=== PATIENT | female | born 1945 | race Caucasian/White ===

== ENCOUNTER 2020-02-24 06:13 | Emergency (ER) | payer OTHER ==
[2011-12-09 08:20] VITALS: BP 112/66
--- OUTSIDE RECORDS SUMMARY | 2020-02-24 06:15 | XMS REPORT | Continuity of Care Document ---
:1945 Author Organization [facility] t Address [address] [place] [address] Care Team Providers Name Role Phone Cornelio BRIGGS Attending Clinician Theo BRIGGS Attending Clinician Problems This patient has no known problems. Allergies, Adverse Reactions, Alerts This patient has no known allergies or adverse reactions. Medications This patient has no known medications. Procedures This patient has no known procedures. Encounters Start End Encounter Admission Attending Care Care Encounter Source Date/Time Date/Time Type Type Clinicians Facility Department ID 2019-12-10 2019-12-10 Telephone JOES Grimes [id number] 00:00:00 00:00:00 Rasheed Burkett [id number] [place] [id number] Professio [phone] nal 044 Building 2019-09-17 2019-09-17 Telephone JOSE Venegas [id number] 00:00:00 00:00:00 Sloane Burkett [id number] [place] [id number] Professio [phone] nal 059 [facility] Results This patient has no known results.
--- OUTSIDE RECORDS SUMMARY | 2020-02-24 06:16 | XMS REPORT | Summary of Care ---
:1945 Author Organization [facility] Address [address] [place] [address] Care Team Providers Name Role Phone MD Cornelio Primary Care Provider Reason for Visit Reason Comments Talk To Nurse Encounter Details Date Type Department Care Team Description 09/17/2019 Telephone [facility] Cardiology- Kaylin Venegas MD Talk To Nurse [place] [address] [facility] 146 [facility], [address] [place] [address] [place] [address] [phone] Allergies Active Allergy Reactions Severity Noted Date Comments Brimonidine Other - See comments 07/16/2019 Papilla ry reaction, conjunctival irritation Rosuvastatin Calcium Anaphylaxis 01/24/2015 Neuromuscular Blockers, Unknown - See 07/13/2013 Giv es pt glaucoma, Steroidal comments all steroid typ e medications Penicillins Swelling 07/13/2013 Gyrypbs-Kgt-Nkh Rash 05/02/2015 Reductase Inhibitors Sulfa (Sulfonamide Unknown - See 07/13/2013 Had reac tion as a Antibiotics) comments child Ezetimibe Unknown - See 04/18/2018 comments documented as of this encounter (statuses as of 11/30/2019) Medications Medication Sig Dispensed Refills Start End Status Date Date aspirin 81 mg Take 81 mg by 0 Ac tive tabletIndications: mouth daily. Coronary atherosclerosis of unspecified type of vessel, [place] or graft, Other acute and subacute form of ischemic heart disease, Traumatic amputation of toe(s) (complete) (partial), without mention of complication, S/P appendectomy VITAMIN E, Take 100 Units by [address]ive DL,TOCOPHERYL ACET, mouth. (VITAMIN E, DL, ACETATE,) 400 unit Cap fluticasone 50 Use 1 [place] in 3 Bottle 3 05/04/20 Active mcg/actuation nasal each nostril 18 sprayIndications: daily. Seasonal allergic rhinitis, unspecified trigger oxymetazoline (AFRIN Use 1 [place] in 0 Active SINUS, OXYMETAZOLINE,) each nostril 2 0.05 % nasal spray (two) times daily. alirocumab (PRALUENT inject 75 mg 2 Syringe 11 12/16/19 Active PEN) 75 mg/mL under the skin 19 PnIjIndications: every 2 (two) hyperlipidemia weeks. Indications: hyperlipidemia capsicum oleoresin Apply to area(s) 60 g 1 04/24/20 Active 0.025 % 3 (three) times 19 creamIndications: daily. Apply 2-4g Trigeminal neuralgia topically to affected area TID diclofenac 75 mg EC Take 1 tablet by 60 tablet 1 07/25/19 Active tabletIndications: mouth 2 (two) 20 Pain of right hip times daily with joint meals. dorzolamide-timolol Place 1 Drop in 10 mL 5 08/22/19 Active 22.3-6.8 mg/mL both eyes 2 (two) 20 ophthalmic times daily. dropsIndications: Primary open angle glaucoma (POAG) of both eyes, severe stage latanoprost 0.005 % Place 1 Drop in 7.5 mL 5 08/22/19 Active ophthalmic drops both eyes at 20 bedtime. METOPROLOL TARTRATE 25 TAKE 1 TABLET BY 180 tablet 1 03/26/20 03/18/ Discontinued mg tabletIndications: MOUTH TWICE A DAY 2019 Essential hypertension omeprazole 20 mg Take 1 capsule by 90 capsule 1 04/30/20 04/2 4/ Discontinued capsuleIndications: mouth daily. 2019 Gastroesophageal reflux disease without esophagitis HYDROCHLOROTHIAZIDE TAKE 1 CAPSULE BY 90 capsule 1 05/15/20 0 5/04/ Discontinued 12.5 mg MOUTH EVERY DAY 2019 capsuleIndications: Essential hypertension Calcium-Cholecalcifero Take 1 tablet by 90 tablet 1 05/15/20 05/04/ Discontinued l, D3, (CALCIUM WITH mouth daily. 2019 VITAMIN D) 600 mg(1,500mg) -400 unit tabletIndications: Senile osteoporosis bacitracin [address] Place in right 3.5 g 1 03/02/20 03/16/ unit/gram ophthalmic eye 3 (three) 2019 ointmentIndications: times daily for Herpes zoster 14 days. 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 Gastroesophageal reflux disease without esophagitis Chronic pain of multiple joints 04/24/2019 Encounter for screening for malignant neoplasm of lung 04/24/2019 Senile osteoporosis 04/24/2019 Need for Tdap vaccination 04/24/2019 Dyslipidemia 11/24/2015 Essential hypertension 07/14/2015 Coronary artery disease 07/14/2015 Peripheral vascular disease 07/14/2015 Glaucoma of both eyes 07/14/2015 documented as of this encounter (statuses as of 11/30/2019) Immunizations Name Administration Dates Next Due Influenza High Dose 03/04/2019, 04/10/2018, 05/12/2016 Pneumococcal Polysaccharide, PPSV23 04/23/2019 (Deferred: Va ccine (PNEUMOVAX) Unavailable) Tdap 04/23/2019 documented as of this encounter Social History Tobacco Use Types Packs/Day Years Used Date Former Smoker Cigarettes Quit: 07/14/19 12 Smokeless Tobacco: Never Used Alcohol Use Drinks/Week oz/Week Comments Yes 1 Glasses of wine 1.0 occ 0 Standard drinks or equivalent Sex Assigned at Date Recorded Not on file Job Start Date Occupation Industry Not on file Not on file Not on file Travel History Travel Start Travel End No recent travel history available. documented as of this encounter Last Filed Vital Signs Not on filedocumented in this encounter Plan of Treatment Date Type Specialty Care Team Description 06/20/2020 Office Visit Cardiology Gilmer Mcpherson MD [address] [place] [phone] Health Maintenance Due Date Last Done Comments Breast Cancer Screening 1984 (MAMMOGRAM) Zoster Recombinant Vaccine 1994 (SHINGRIX) (1 of 2) LUNG CANCER SCREEN: 1999 Recommended for age 55-80 with 30 + pack year history PNEUMOCOCCAL VACCINES 65+ (2 2009 09/08/2016 of 2 - PPSV23) (Declined) Medicare Wellness Visit 04/26/2020 01/20/2018 Postpone d from 01/20/2019 (Refused) Depression Screening 07/17/2020 07/17/2019 COLONOSCOPY 09/08/2026 09/08/2016 (Declined) DTaP,Tdap,and Td Vaccines (2 04/23/2029 04/23/2019 - Td) Osteoporosis Screening 05/01/2029 05/01/2019 INFLUENZA VACCINE Completed 03/04/2019, 04/10/2018, 05/12/2016 documented as of this encounter Results Not on filedocumented in this encounter Insurance Payer Benefit Plan Subscriber ID Effective Phone Address Typ e / Group Dates AETNA - AETNA [id number] 2013-Prese [address] Medic are Adv MANAGED MEDICARE ADV nt [id number] [place] [address] documented as of this encounter
--- OUTSIDE RECORDS SUMMARY | 2020-02-24 06:16 | XMS REPORT | Summary of Care ---
:1945 Author Organization [facility] Address [address] [place] [address] Care Team Providers Name Role Phone MD Cornelio Primary Care Provider Reason for Visit Reason Comments Other Encounter Details Date Type Department Care Team Description 12/10/2019 Telephone [facility] Pediatric and Rasheed Romero MD Other Adult Primary Care- [address] [facility] [address] [place] [address] [address] [place] [address] [phone] Allergies Active Allergy Reactions Severity Noted Date Comments Brimonidine Other - See comments 07/16/2019 Papilla ry reaction, conjunctival irritation Rosuvastatin Calcium Anaphylaxis 01/24/2015 Neuromuscular Blockers, Unknown - See 07/13/2013 Giv es pt glaucoma, Steroidal comments all steroid typ e medications Penicillins Swelling 07/13/2013 Zaqbdnq-Lgy-Dfg Rash 05/02/2015 Reductase Inhibitors Sulfa (Sulfonamide Unknown - See 07/13/2013 Had reac tion as a Antibiotics) comments child Ezetimibe Unknown - See 04/18/2018 comments documented as of this encounter (statuses as of 12/16/2019) Medications Medication Sig Dispensed Refills Start End Date Status Date aspirin 81 mg Take 81 mg by 0 Ac tive tabletIndications: mouth daily. Coronary atherosclerosis of unspecified type of vessel, [place] or graft, Other acute and subacute form of ischemic heart disease, Traumatic amputation of toe(s) (complete) (partial), without mention of complication, S/P appendectomy VITAMIN E, DL,TOCOPHERYL Take 100 Units by 0 Active ACET, (VITAMIN E, DL, mouth. ACETATE,) 400 unit Cap fluticasone 50 Use 1 [place] in 3 Bottle 3 Active mcg/actuation nasal each nostril 8 sprayIndications: daily. Seasonal allergic rhinitis, unspecified trigger oxymetazoline (AFRIN Use 1 [place] in 0 Active SINUS, OXYMETAZOLINE,) each nostril 2 0.05 % nasal spray (two) times daily. alirocumab (PRALUENT inject 75 mg under 2 Syringe 11 Active PEN) 75 mg/mL the skin every 2 9 PnIjIndications: (two) weeks. hyperlipidemia Indications: hyperlipidemia capsicum oleoresin 0.025 Apply to area(s) 60 g 1 01 Active % creamIndications: 3 (three) times 9 Trigeminal neuralgia daily. Apply 2-4g topically to affected area TID diclofenac 75 mg EC Take 1 tablet by 60 tablet 1 Active tabletIndications: Pain mouth 2 (two) 0 of right hip joint times daily with meals. dorzolamide-timolol Place 1 Drop in 10 mL 5 Active 22.3-6.8 mg/mL both eyes 2 (two) 0 ophthalmic times daily. dropsIndications: Primary open angle glaucoma (POAG) of both eyes, severe stage latanoprost 0.005 % Place 1 Drop in 7.5 mL 5 Active ophthalmic drops both eyes at 0 bedtime. cyclobenzaprine 10 mg Take 1 tablet by 40 tablet 0 Active tabletIndications: Low mouth 3 (three) 0 back pain potentially times daily. associated with radiculopathy METOPROLOL TARTRATE 25 TAKE 1 TABLET BY 180 tablet 1 Active mg tabletIndications: MOUTH TWICE A DAY 0 Essential hypertension OMEPRAZOLE 20 mg TAKE 1 CAPSULE BY 90 capsule 1 Active capsuleIndications: MOUTH EVERY DAY 0 Gastroesophageal reflux disease without esophagitis HYDROCHLOROTHIAZIDE 12.5 TAKE 1 CAPSULE BY 90 capsule 1 Active mg capsuleIndications: MOUTH EVERY DAY 0 Essential hypertension CALCIUM-CHOLECALCIFEROL, TAKE 1 TABLET BY 90 tablet 1 11/05/19 2 Active D3, 600 mg(1,500mg) -400 MOUTH EVERY DAY 0 unit tabletIndications: Senile osteoporosis documented as of this encounter (statuses as of 12/16/2019) Active Problems Problem Noted Date Hyperlipidemia, unspecified [...] as of this encounter (statuses as of 12/16/2019) Immunizations Name Administration Dates Next Due Influenza [...] Cardiology Gilmer Mcpherson MD [address] [place] [phone] Health Maintenance Due Date Last Done [...] e / Group Dates AETNA - AETNA [id number] 2013-Prese [address] BOX Medic are Adv MANAGED MEDICARE ADV nt [id number] [place] [phone] documented as of this encounter
[2020-02-24 06:42] LABS: Absolute Lymphocytes (CBC) 1.1 K/uL (0.7-4.9); Basophils % 1.3 % (0-1.3); Hematocrit 44.1 % (36.0-45.0); Lymphocytes % 30.1 % (15.3-44.8); MPV 9.4 fL (7.6-11.3); RBC Red Blood Cell Count 5.22 M/uL (3.86-4.86)
[2020-02-24 06:48] LABS: Protime INR 1.03
--- NOTE | 2020-02-24 06:52 | ER ---
Nurse's Notes [facility] Name: Xiomy Mendez Age: 74 yrs Sex: Female : 1945 Arrival Date: 02/24/2020 Time: 06:18 Bed 7 Private MD: Diagnosis: Cerebral infarction Presentation: 02/23 06:18 Chief complaint: EMS states: they were toned out for report of pt with left-sided bb weakness on awakening this morning approx an hour ago. Pt's last known well time was when she went to bed last night at approx 2100. On awakening pt could not move her left arm or leg but symptoms were improving when EMS arrived. Coronavirus screen: At this time, the client does not indicate any symptoms associated with coronavirus-19. Ebola Screen: No symptoms or risks identified at this time. Initial Sepsis Screen: Does the patient meet any 2 criteria? No. Patient's initial sepsis screen is negative. Does the patient have a suspected source of infection? No. Patient's initial sepsis screen is negative. Risk Assessment: Do you want to hurt yourself or someone else? Patient reports no desire to harm self or others. Onset of symptoms was February 24, 2020. 06:18 Method Of Arrival: EMS: [facility] bb 06:18 Acuity: ALFONSO 1 bb 06:18 An acute neurological deficit is present. bb 06:53 Care prior to arrival: pt took aspirin 81 mg x 3 at home this morning. bb Triage Assessment: 06:38 The onset of the patients symptoms was more than six hours ago. bb 07:12 The onset of the patients symptoms was. General: Appears comfortable. General: Behavior rv is cooperative. 07:14 Neuro: Reports headache frontal area. rv Stroke Activation: Symptom onset > 6 hours Physician: Stroke Attending; Name: ; Notified At: 06:18; Arrived At: Physician: Chief Stroke Resident; Name: ; Notified At: 06:18; Arrived At: Physician: Stroke Resident; Name: ; Notified At: 06:18; Arrived At: Physician: ED Attending; Name: Hailey; Notified At: 06:18; Arrived At: 06:18 Physician: ED Resident; Name: ; Notified At: 06:18; Arrived At: Historical: - Allergies: 06:38 PENICILLINS; bb 06:38 Sulfa (Sulfonamide Antibiotics); bb 06:38 steroids; bb - Home Meds: 06:38 Metoprolol Tartrate Oral [Active]; Hydrochlorothiazide Oral [Active]; Vitamin D Oral bb [Active]; Aspirin Oral [Active]; - PMHx: 06:38 Myocardial infarction; Hypertension; bb - PSHx: 06:38 Heart stents; all toes amputated both feet; Appendectomy; bb - Immunization history:: Adult Immunizations unknown. - Social history:: Smoking status: unknown. Screenin:33 Abuse screen: Denies threats or abuse. Denies injuries from another. Nutritional rv screening: No deficits noted. Tuberculosis screening: No symptoms or risk factors identified. 06:40 The patient has not been NPO before screening. The patient is alert, able to follow bb commands. The patient does not exhibit slurred or garbled speech The patient is not exhibiting difficulty speaking. The patient does not exhibit difficulty understanding words. The patient is able to swallow own secretions with no drooling or need for suction. Patient tolerated one teaspoon of water. No drooling, immediate coughing, gurgling, or clearing of the throat was noted. The patient tolerated 90mL of water. No drooling, immediate coughing, gurgling, or clearing of the throat was noted. The patient passed the bedside swallow screening. Oral medications may be given as ordered. Contact Physician for further diet orders. 07:13 Fall Risk No fall in past 12 months (0 pts). Secondary diagnosis (15 points) impaired rv mobility, IV access (20 points). Ambulatory Aid- None/Bed Rest/Nurse Assist (0 pts). Gait- Impaired (20 pts.). Mental Status- Overestimates/Forgets Limitations (15 pts.). Total Lyon Fall Scale indicates High Risk Score (45 or more points). Fall prevention measures have been instituted. Side Rails Up X 2 Frequent Obs/Assessments Occuring As available patient and family educated on Fall Prevention Program and Strategies. Assessment: 06:40 Reassessment: Alexis Mendez (spouse) [phone]. Reassessment: radiology on phone bb to Steven Hart NP with results of CT scan. 06:45 VAN Scoring: Arm Drift: Flaccid/no antigravity Visual Disturbance: No visual rv disturbance noted. Aphasia: No aphasia noted. Neglect: Patient is noted to be ignoring one of side of their body. Provider notified of +VAN scoring. referred to Steven. 06:45 The patient has not been NPO before screening. The patient is alert, and able to follow rv commands. The patient does not exhibit slurred or garbled speech. The patient is not exhibiting difficulty speaking. The patient does not exhibit difficulty understanding words. Patient tolerated one teaspoon of water. No drooling, immediate coughing, gurgling, or clearing of the throat was noted. The patient tolerated 90mL of water. No drooling, immediate coughing, gurgling, or clearing of the throat was noted. The patient failed the bedside swallow screening. The patient will be kept NPO until cleared by Speech Therapy or Physician. Provider notified of bedside swallow screening results: Steven Hart NP. 07:02 General: Behavior is cooperative. Pain: Complains of pain in HEAD. Neuro: Level of rv Consciousness is awake, alert, obeys commands, Oriented to person, place, time, situation. 07:09 T-PA (Activase) Screening: Contraindications: Patient reports onset of signs and rb1 symptoms of stroke greater than 6 hours ago: Yes. 07:15 General: Appears in no apparent distress. Behavior is calm, cooperative. Pain: rb1 Complains of pain in head. Neuro: Level of Consciousness is awake, alert, obeys commands, Oriented to person, place, time, situation. Neuro: Reports weakness in left arm. Cardiovascular: Patient's skin is warm and dry. Respiratory: Airway is patent Respiratory effort is even, unlabored, Respiratory pattern is regular, symmetrical. GI: No signs and/or symptoms were reported involving the gastrointestinal system. : No signs and/or symptoms were reported regarding the genitourinary system. 08:25 Reassessment: Patient appears in no apparent distress at this time. No changes from rb1 previously documented assessment. 08:50 Reassessment: Called report to RONNIE Sawant at [facility]. Information from the SBAR was rb1 given. All questions asked and answered. 09:30 Reassessment: Patient appears in no apparent distress at this time. Patient and/or rb1 family updated on plan of care and expected duration. Pain level reassessed. Patient is alert, oriented x 3, equal unlabored respirations, skin warm/dry/pink. Vital Signs: 06:18 BP 198 / 97; Pulse 70; Resp 16 S; Temp 97.7(A); Pulse Ox 96% on R/A; Weight 72.57 kg bb (R); Height 5 ft. 2 in. (157.48 cm) (R); 07:00 Weight 77.11 kg; rr5 07:09 BP 191 / 93; Pulse 71; Resp 18; Pulse Ox 98% ; rb1 08:00 rb1 08:56 BP 215 / 93; Pulse 76; Resp 17; Pulse Ox 98% ; rb1 09:50 BP 197 / 96; Pulse 69; Resp 18; Pulse Ox 95% on R/A; Pain 7/10; rb1 07:00 Body Mass Index 31.09 (77.11 kg, 157.48 cm) rr5 08:[address] rb1 08:56 Pt. is using her arm to talk on the telephone. rb1 Fidencio Coma Score: 07:14 Eye Response: spontaneous(4). Verbal Response: oriented(5). Motor Response: obeys rv commands(6). Total: 15. 08:15 Eye Response: spontaneous(4). Verbal Response: oriented(5). Motor Response: obeys rb1 commands(6). Total: 15. 08:30 Eye Response: spontaneous(4). Verbal Response: oriented(5). Motor Response: obeys rb1 commands(6). Total: 15. 08:45 Eye Response: spontaneous(4). Verbal Response: oriented(5). Motor Response: obeys rb1 commands(6). Total: 15. 09:00 Eye Response: spontaneous(4). Verbal Response: oriented(5). Motor Response: obeys rb1 commands(6). Total: 15. 09:15 Eye Response: spontaneous(4). Verbal Response: oriented(5). Motor Response: obeys rb1 commands(6). Total: 15. 09:30 Eye Response: spontaneous(4). Verbal Response: oriented(5). Motor Response: obeys rb1 commands(6). Total: 15. 09:44 Eye Response: spontaneous(4). Verbal Response: oriented(5). Motor Response: obeys rb1 commands(6). Total: 15. NIH Stroke Scale Scores: 06:29 NIHSS Score: 6 pm1 06:33 NIHSS Score: 6 rv 07:06 NIHSS Score: 6 rv 07:22 NIHSS Score: 6 pm1 09:55 NIHSS Score: 4 rb1 ED Course: 06:18 Patient arrived in ED. bb 06:18 Steven Hart NP is PHCP. pm1 06:18 Burke Ramirez MD is Attending Physician. pm1 06:18 Arm band placed on Patient placed in an exam room, on a stretcher, on hospital monitor, bb on pulse oximetry. 06:29 Minor Watts, RN is Primary Nurse. rv 06:33 CT Stroke Brain w/o Contrast In Process Unspecified. EDMS 06:34 Stroke CXR 1 View In Process Unspecified. EDMS 06:34 Triage completed. bb 06:45 Inserted saline lock: 20 gauge in right forearm, using aseptic technique. Maintain EMS rv IV. Dressing intact. Good blood return noted. Site clean \T\ dry. Gauge \T\ site: G22 RIGHT FOREARM. 06:45 Initial lab(s) drawn, by mushroom laborer, sent to lab. rv 07:[address] 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 Bed in low position. Call rv light in reach. Side rails up X 1. monitoring and evaluation advisor on. Pulse ox on. NIBP on. 07:25 Steven Hart Np, gave report to neurologist at [facility]. Neurologist nd request CT Angio before transfer. 08:02 CT Head Angio In Process Unspecified. EDMS 08:[address] Angio report back, notified [facility]. Hailey gave report to nd hospitalistLinda and got acceptance for transfer. 08:37 Arsen Blake called with administrative approval. Patient will be going to room 2251. mt 08:50 BB called nurse to nurse report. mt 08:55 [facility] called for transfer. mt 09:38 [facility] arrived to transport patient to [facility]. mt 09:55 No provider procedures requiring assistance completed. rb1 09:55 Patient transferred, IV remains in place. rb1 10:13 Primary Nurse role handed off by Minor Watts, RONNIE rb1 10:13 Carmita Teresa, RONNIE is Primary Nurse. rb1 Administered Medications: 07:00 Drug: morphine 2 mg {Note: RASS 0.} Route: IVP; Site: left forearm; rv 07:44 Follow up: Response: No adverse reaction; Pain is decreased rb1 07:00 Drug: Zofran (Ondansetron) 4 mg Route: IVP; Site: left forearm; rv 07:44 Follow up: Response: No adverse reaction rb1 07:11 CANCELLED (Duplicate Order): Zofran (Ondansetron) 4 mg IVP once; over 2 minutes rv 07:11 CANCELLED (Duplicate Order): morphine 2 mg IVP once; RASS on ADMIN: Combtv4, Very rv Agttd3, Agttd2, Rstlss1, AlertClm0, Drwsy-1, Lt Sdtn-2, Mod Sdtn-3, Dp Sdtn-4, UnArsble-5 08:37 Drug: NS 0.9% 1000 ml Route: IV; Rate: 1000 ml; Site: right forearm; rb1 09:55 Follow up: IV Status: Infusion continued upon transfer rb1 08:37 Drug: PlaVIX 75 mg Route: PO; rb1 09:00 Follow up: Response: No adverse reaction rb1 08:37 Drug: Aspirin 81 mg Route: PO; rb1 09:00 Follow up: Response: No adverse reaction rb1 09:35 Drug: foLIC Acid 1 mg Route: IVPB; Site: right forearm; rb1 09:44 Follow up: IV Status: Completed infusion rb1 09:39 Drug: Tylenol 650 mg Route: PO; rb1 09:55 Follow up: Response: Medication administered at discharge. rb1 09:41 Not Given (provider changed order): Zocor 40 mg PO once rb1 Point of Care Testing: Blood Glucose: 07:13 Blood Glucose: 108 mg/dL; rv Ranges: Outcome: 06:52 ER care complete, transfer ordered by . pm1 09:55 Transferred by [facility] to [facility], Transfer form completed. rb1 09:55 Condition: stable 09:55 Instructed on the need for transfer. 09:55 Patient left the ED. rb1 NIH Stroke Scale - NIH Stroke Score Date: 02/24/2020 Time: 06:29 Total Score = 6 1a. Level of Consciousness (LOC) - 0(Alert) 1b. Level of Consciousness (LOC) (Year \T\ Age) - 0(Both) 1c. LOC Commands (Open \T\ Closes Eyes/Transition Manager) - 0(Both) 2. Best Gaze (Lateral Gaze Paresis) - 0(Normal) 3. Visual Field Loss - 0(No visual loss) 4. Facial Palsy - 0(Normal) 5a. Left Arm: Motor (10-second hold) - 4(No movement) 5b. Right Arm: Motor (10-second hold) - 0(No drift) 6a. Left Leg: Motor (5-second hold - always test supine) - 0(No drift) 6b. Right Leg: Motor (5-second hold - always test supine) - 0(No drift) 7. Limb Ataxia (finger/nose \T\ heel/irizarry - test with eyes open) - 0(Absent) 8. Sensory Loss (pinprick arms/legs/face) - 2(Severe to total loss) 9. Best Language: Aphasia (description/naming/reading) - 0(No aphasia) 10. Dysarthria (speech clarity - read or repeat words) - 0(Normal) 11. Extinction and Inattention (visual/tactile/auditory/spatial/personal) - 0(No abnormality) Initials: pm1 NIH Stroke Scale - NIH Stroke Score Date: 02/24/2020 Time: 06:33 Total Score = 6 1a. Level of Consciousness (LOC) - 0(Alert) 1b. Level of Consciousness (LOC) (Year \T\ Age) - 0(Both) 1c. LOC Commands (Open \T\ Closes Eyes/Transition Manager) - 0(Both) 2. Best Gaze (Lateral Gaze Paresis) - 0(Normal) 3. Visual Field Loss - 0(No visual loss) 4. Facial Palsy - 0(Normal) 5a. Left Arm: Motor (10-second hold) - 4(No movement) 5b. Right Arm: Motor (10-second hold) - 0(No drift) 6a. Left Leg: Motor (5-second hold - always test supine) - 0(No drift) 6b. Right Leg: Motor (5-second hold - always test supine) - 0(No drift) 7. Limb Ataxia (finger/nose \T\ heel/irizarry - test with eyes open) - 0(Absent) 8. Sensory Loss (pinprick arms/legs/face) - 2(Severe to total loss) 9. Best Language: Aphasia (description/naming/reading) - 0(No aphasia) 10. Dysarthria (speech clarity - read or repeat words) - 0(Normal) 11. Extinction and Inattention (visual/tactile/auditory/spatial/personal) - 0(No abnormality) Initials: NIH Stroke Scale - NIH Stroke Score Date: 02/24/2020 Time: 07:06 Total Score = 6 1a. Level of Consciousness (LOC) - 0(Alert) 1b. Level of Consciousness (LOC) (Year \T\ Age) - 0(Both) 1c. LOC Commands (Open \T\ Closes Eyes/Transition Manager) - 0(Both) 2. Best Gaze (Lateral Gaze Paresis) - 0(Normal) 3. Visual Field Loss - 0(No visual loss) 4. Facial Palsy - 0(Normal) 5a. Left Arm: Motor (10-second hold) - 4(No movement) 5b. Right Arm: Motor (10-second hold) - 0(No drift) 6a. Left Leg: Motor (5-second hold - always test supine) - 0(No drift) 6b. Right Leg: Motor (5-second hold - always test supine) - 0(No drift) 7. Limb Ataxia (finger/nose \T\ heel/irizarry - test with eyes open) - 0(Absent) 8. Sensory Loss (pinprick arms/legs/face) - 2(Severe to total loss) 9. Best Language: Aphasia (description/naming/reading) - 0(No aphasia) 10. Dysarthria (speech clarity - read or repeat words) - 0(Normal) 11. Extinction and Inattention (visual/tactile/auditory/spatial/personal) - 0(No abnormality) Initials: NIH Stroke Scale - NIH Stroke Score Date: 02/24/2020 Time: 07:22 Total Score = 6 1a. Level of Consciousness (LOC) - 0(Alert) 1b. Level of Consciousness (LOC) (Year \T\ Age) - 0(Both) 1c. LOC Commands (Open \T\ Closes Eyes/Transition Manager) - 0(Both) 2. Best Gaze (Lateral Gaze Paresis) - 0(Normal) 3. Visual Field Loss - 0(No visual loss) 4. Facial Palsy - 0(Normal) 5a. Left Arm: Motor (10-second hold) - 4(No movement) 5b. Right Arm: Motor (10-second hold) - 0(No drift) 6a. Left Leg: Motor (5-second hold - always test supine) - 0(No drift) 6b. Right Leg: Motor (5-second hold - always test supine) - 0(No drift) 7. Limb Ataxia (finger/nose \T\ heel/irizarry - test with eyes open) - 0(Absent) 8. Sensory Loss (pinprick arms/legs/face) - 2(Severe to total loss) 9. Best Language: Aphasia (description/naming/reading) - 0(No aphasia) 10. Dysarthria (speech clarity - read or repeat words) - 0(Normal) 11. Extinction and Inattention (visual/tactile/auditory/spatial/personal) - 0(No abnormality) Initials: pm1 NIH Stroke Scale - NIH Stroke Score Date: 02/24/2020 Time: 09:55 Total Score = 4 1a. Level of Consciousness (LOC) - 0(Alert) 1b. Level of Consciousness (LOC) (Year \T\ Age) - 0(Both) 1c. LOC Commands (Open \T\ Closes Eyes/Transition Manager) - 0(Both) 2. Best Gaze (Lateral Gaze Paresis) - 0(Normal) 3. Visual Field Loss - 0(No visual loss) 4. Facial Palsy - 0(Normal) 5a. Left Arm: Motor (10-second hold) - 2(Drift, some effort against gravity) 5b. Right Arm: Motor (10-second hold) - 0(No drift) 6a. Left Leg: Motor (5-second hold - always test supine) - 0(No drift) 6b. Right Leg: Motor (5-second hold - always test supine) - 0(No drift) 7. Limb Ataxia (finger/nose \T\ heel/irizarry - test with eyes open) - 1(Present in one limb) 8. Sensory Loss (pinprick arms/legs/face) - 1(Mild to moderate loss) 9. Best Language: Aphasia (description/naming/reading) - 0(No aphasia) 10. Dysarthria (speech clarity - read or repeat words) - 0(Normal) 11. Extinction and Inattention (visual/tactile/auditory/spatial/personal) - 0(No abnormality) Initials: rb1 Signatures: Dispatcher [employer] EDKelly Portillo RN RN bb Carmita Teresa, RN RN rb1 Steven Hart, ROTARY PLANER SET UP OPERATOR ROTARY PLANER SET UP OPERATOR pm1 [facility] Minor Watts RN RN rv Sergey Mason RN RN rr5 Corrections: (The following items were deleted from the chart) :46 08:50 BB called nurse to nurse report at 0850 [facility] :46 08:50 Safety checks: [facility] 10:11 10:10 Patient left the ED. [place] [id number] 10:15 10:14 Patient left the ED. rb1 rb1
--- NOTE | 2020-02-24 06:52 | EDPHYS ---
Physician Documentation [facility] Name: Xiomy Mendez Age: 74 yrs Sex: Female : 1945 Arrival Date: 02/24/2020 Time: 06:18 Bed 7 Private MD: ED Physician Burke Ramirez HPI: 02/23 06:29 This 74 yrs old Female presents to ER via EMS with complaints of S/S of pm1 Possible Stroke. 06:29 The patient presents to the emergency department with weakness of the left upper pm1 extremity, with the patient having weak corporate accounting manager, impaired coordination, left lower extremity, paresthesias of the left upper extremity. Onset: The symptoms/episode began/occurred Woke up 1 hour prior to arrival with inability to move left arm and left leg. Left arm numbness and pain. Patient was unable to walk and had to assist her to the restroom. Context: occurred at home, occurred while the patient was asleep, Patient's last normal time was 2100 last night. Patient went to sleep with a headache. Associated signs and symptoms: Pertinent positives: headache, nausea, Pertinent negatives: fever, No vision changes. Patient with baseline poor vision due to glaucoma. No chest pain, shortness of breath, palpitations. Severity of symptoms: in the emergency department the symptoms have improved Left leg weakness has improved. Patient's baseline: Neuro: alert and fully oriented, Motor: no deficits, Ambulation: walks without assistance. Current symptoms: headache, paralysis or paresis, of the left arm. The patient has not experienced similar symptoms in the past. 06:29 Patient given Asprin 81mg x 3 prior to arrival. pm1 Historical: - Allergies: 06:38 PENICILLINS; bb 06:38 Sulfa (Sulfonamide Antibiotics); bb 06:38 steroids; bb - Home Meds: 06:38 Metoprolol Tartrate Oral [Active]; Hydrochlorothiazide Oral [Active]; Vitamin D Oral bb [Active]; Aspirin Oral [Active]; - PMHx: 06:38 Myocardial infarction; Hypertension; bb - PSHx: 06:38 Heart stents; all toes amputated both feet; Appendectomy; bb - Immunization history:: Adult Immunizations unknown. - Social history:: Smoking status: unknown. ROS: 06:29 Constitutional: Negative for fever, chills, and weight loss, Eyes: Negative for injury, pm1 pain, redness, and discharge, ENT: Negative for injury, pain, and discharge, Neck: Negative for injury, pain, and swelling, Cardiovascular: Negative for chest pain, palpitations, and edema, Respiratory: Negative for shortness of breath, cough, wheezing, and pleuritic chest pain. 06:29 Back: Negative for injury and pain, : Negative for injury, bleeding, discharge, and swelling, MS/Extremity: Negative for injury and deformity, Skin: Negative for injury, rash, and discoloration. 06:29 Abdomen/GI: Positive for nausea, Negative for abdominal pain, vomiting, diarrhea, constipation. 06:29 Neuro: Positive for headache, numbness, weakness, of the left arm and left leg. Exam: 06:29 Constitutional: This is a well developed, well nourished patient who is awake, alert, pm1 and in no acute distress. Head/Face: Normocephalic, atraumatic. Eyes: Pupils equal round and reactive to light, extra-ocular motions intact. Lids and lashes normal. Conjunctiva and sclera are non-icteric and not injected. Cornea within normal limits. Periorbital areas with no swelling, redness, or edema. ENT: Nares patent. No nasal discharge, no septal abnormalities noted. Tympanic membranes are normal and external auditory canals are clear. Oropharynx with no redness, swelling, or masses, exudates, or evidence of obstruction, uvula midline. Mucous membranes moist. Neck: Trachea midline, no thyromegaly or masses palpated, and no cervical lymphadenopathy. Supple, full range of motion without nuchal rigidity, or vertebral point tenderness. No Meningismus. Chest/axilla: Normal chest wall appearance and motion. Nontender with no deformity. No lesions are appreciated. Cardiovascular: Regular rate and rhythm with a normal S1 and S2. No gallops, murmurs, or rubs. Normal PMI, no JVD. No pulse deficits. Respiratory: Lungs have equal breath sounds bilaterally, clear to auscultation and percussion. No rales, rhonchi or wheezes noted. No increased work of breathing, no retractions or nasal flaring. Abdomen/GI: Soft, non-tender, with normal bowel sounds. No distension or tympany. No guarding or rebound. No evidence of tenderness throughout. Back: No spinal tenderness. No costovertebral tenderness. Full range of motion. Skin: Warm, dry with normal turgor. Normal color with no rashes, no lesions, and no evidence of cellulitis. MS/ Extremity: Pulses equal, no cyanosis. 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 Vital Signs: 06:18 BP 198 / 97; Pulse 70; Resp 16 S; Temp 97.7(A); Pulse Ox 96% on R/A; Weight 72.57 kg bb (R); Height 5 ft. 2 in. (157.48 cm) (R); 07:00 Weight 77.11 kg; rr5 07:09 BP 191 / 93; Pulse 71; Resp 18; Pulse Ox 98% ; rb1 08:00 rb1 08:56 BP 215 / 93; Pulse 76; Resp 17; Pulse Ox 98% ; rb1 09:50 BP 197 / 96; Pulse 69; Resp 18; Pulse Ox 95% on R/A; Pain 7/10; rb1 07:00 Body Mass Index 31.09 (77.11 kg, 157.48 cm) rr5 08:[address] rb1 08:56 Pt. is using her arm to talk on the telephone. rb1 NIH Stroke Scale Scores: 06:29 NIHSS Score: 6 pm1 06:33 NIHSS Score: 6 rv 07:06 NIHSS Score: 6 rv 07:22 NIHSS Score: 6 pm1 09:55 NIHSS Score: 4 rb1 Crumrod Coma Score: 07:14 Eye Response: spontaneous(4). Verbal Response: oriented(5). Motor Response: obeys rv commands(6). Total: 15. 08:15 Eye Response: spontaneous(4). Verbal Response: oriented(5). Motor Response: obeys rb1 commands(6). Total: 15. 08:30 Eye Response: spontaneous(4). Verbal Response: oriented(5). Motor Response: obeys rb1 commands(6). Total: 15. 08:45 Eye Response: spontaneous(4). Verbal Response: oriented(5). Motor Response: obeys rb1 commands(6). Total: 15. 09:00 Eye Response: spontaneous(4). Verbal Response: oriented(5). Motor Response: obeys rb1 commands(6). Total: 15. 09:15 Eye Response: spontaneous(4). Verbal Response: oriented(5). Motor Response: obeys rb1 commands(6). Total: 15. 09:30 Eye Response: spontaneous(4). Verbal Response: oriented(5). Motor Response: obeys rb1 commands(6). Total: 15. 09:44 Eye Response: spontaneous(4). Verbal Response: oriented(5). Motor Response: obeys rb1 commands(6). Total: 15. MDM: 06:19 Patient medically screened. pm1 06:20 ED course: Patient is not a TPA candidate. Last known normal baseline 2100 last night. pm1 06:48 Data reviewed: vital signs. Data interpreted: Pulse oximetry: on room air is 96 %. pm1 Interpretation: normal. Counseling: I had a detailed discussion with the patient and/or guardian regarding: the historical points, exam findings, and any diagnostic results supporting the discharge/admit diagnosis, lab results, radiology results, the need to transfer to another facility, [facility] does not immediately have the required specialist. 07:16 ED course: Patient would like to go to [facility] for admission if possible. pm1 07:18 ED course: Uncertain neuro ICU bed availability per [facility] transfer center, therefore pm1 will initiate transfer to [facility] Discussed with patient and and they would like to be transferred to a facility that would be available to treat her soonest. 07:26 Physician consultation: Neurologyamila Gautam regarding regarding transfer, patient's pm1 condition, would like further tests performed, CTA prior to transfer and call back with results to see if patient is candidate for intervention. 08:25 Physician consultation: Neurologyamila Gautam regarding CTA results. pm1 08:30 Physician consultation: Joaquin Rodriguez MD Recommends Zocor 40mg PO, Aspirin 81mg PO, pm1 Plavix 75 mg PO, NS 1000 mL IV, and Folic acid 1 mg IV. 08:36 Physician consultation: Meg Mckeon regarding regarding transfer, patient's pm1 condition. 02/23 06:19 Order name: Hepatic Function; Complete Time: 07:14 pm1 02/23 06:19 Order name: Basic Metabolic Panel; Complete Time: 07:14 pm1 02/23 06:19 Order name: CBC with Diff; Complete Time: 07:19 pm1 02/23 06:19 Order name: Protime (+inr); Complete Time: 06:53 pm1 02/23 06:19 Order name: Ptt, Activated; Complete Time: 06:53 pm1 02/23 06:43 Order name: Glucose, Ancillary Testing; Complete Time: 06:53 EDMS 02/23 06:19 Order name: CT Stroke Brain w/o Contrast pm1 02/23 06:19 Order name: Stroke CXR 1 View; Complete Time: 07:15 pm1 02/23 07:18 Order name: CBC Smear Scan; Complete Time: 07:19 EDMS 02/23 07:26 Order name: CT Head Angio; Complete Time: 08:23 pm1 02/23 08:47 Order name: SARS-COV-2 RT PCR; Complete Time: 08:48 EDMS 02/23 06:19 Order name: Accucheck; Complete Time: 07:15 pm1 02/23 06:19 Order name: Cardiac monitoring; Complete Time: 07:15 pm1 02/23 06:19 Order name: EKG - Nurse/Tech; Complete Time: 07:15 pm1 02/23 06:19 Order name: IV Saline Lock; Complete Time: 07:15 pm1 02/23 06:19 Order name: Labs collected and sent; Complete Time: 07:15 pm1 02/23 06:19 Order name: NPO; Complete Time: 07:15 pm1 02/23 06:19 Order name: O2 Per Protocol; Complete Time: 07:15 pm1 02/23 06:19 Order name: O2 Sat Monitoring; Complete Time: 07:15 pm1 02/23 06:19 Order name: Stroke Swallow Screen; Complete Time: 07:15 pm1 Administered Medications: 07:00 Drug: morphine 2 mg {Note: RASS 0.} Route: IVP; Site: left forearm; rv 07:44 Follow up: Response: No adverse reaction; Pain is decreased rb1 07:00 Drug: Zofran (Ondansetron) 4 mg Route: IVP; Site: left forearm; rv 07:44 Follow up: Response: No adverse reaction rb1 07:11 CANCELLED (Duplicate Order): Zofran (Ondansetron) 4 mg IVP once; over 2 minutes rv 07:11 CANCELLED (Duplicate Order): morphine 2 mg IVP once; RASS on ADMIN: Combtv4, Very rv Agttd3, Agttd2, Rstlss1, AlertClm0, Drwsy-1, Lt Sdtn-2, Mod Sdtn-3, Dp Sdtn-4, UnArsble-5 08:37 Drug: NS 0.9% 1000 ml Route: IV; Rate: 1000 ml; Site: right forearm; rb1 09:55 Follow up: IV Status: Infusion continued upon transfer rb1 08:37 Drug: PlaVIX 75 mg Route: PO; rb1 09:00 Follow up: Response: No adverse reaction rb1 08:37 Drug: Aspirin 81 mg Route: PO; rb1 09:00 Follow up: Response: No adverse reaction rb1 09:35 Drug: foLIC Acid 1 mg Route: IVPB; Site: right forearm; rb1 09:44 Follow up: IV Status: Completed infusion rb1 09:39 Drug: Tylenol 650 mg Route: PO; rb1 09:55 Follow up: Response: Medication administered at discharge. rb1 09:41 Not Given (provider changed order): Zocor 40 mg PO once rb1 Point of Care Testing: Blood Glucose: 07:13 Blood Glucose: 108 mg/dL; rv Ranges: Critical Glucose Levels:Adult <50 mg/dl or >400 mg/dl <40 mg/dl or >180 mg/dl Disposition: 18:59 Co-signature as Attending Physician, Burke Ramirez MD. rn Disposition: 02/24/20 06:52 Transfer ordered to [facility]. Diagnosis is Cerebral infarction. - Reason for transfer: Higher level of care. - Accepting physician is [facility]. - Condition is Stable. - Problem is new. - Symptoms have improved. NIH Stroke Scale - NIH Stroke Score Date: 02/24/2020 Time: 06:29 Total Score = 6 1a. Level of Consciousness (LOC) - 0(Alert) 1b. Level of Consciousness (LOC) (Year \T\ Age) - 0(Both) 1c. LOC Commands (Open \T\ Closes Eyes/Car Loader) - 0(Both) 2. Best Gaze (Lateral Gaze Paresis) - 0(Normal) 3. Visual Field Loss - 0(No visual loss) 4. Facial Palsy - 0(Normal) 5a. Left Arm: Motor (10-second hold) - 4(No movement) 5b. Right Arm: Motor (10-second hold) - 0(No drift) 6a. Left Leg: Motor (5-second hold - always test supine) - 0(No drift) 6b. Right Leg: Motor (5-second hold - always test supine) - 0(No drift) 7. Limb Ataxia (finger/nose \T\ heel/irizarry - test with eyes open) - 0(Absent) 8. Sensory Loss (pinprick arms/legs/face) - 2(Severe to total loss) 9. Best Language: Aphasia (description/naming/reading) - 0(No aphasia) 10. Dysarthria (speech clarity - read or repeat words) - 0(Normal) 11. Extinction and Inattention (visual/tactile/auditory/spatial/personal) - 0(No abnormality) Initials: pm1 NIH Stroke Scale - NIH Stroke Score Date: 02/24/2020 Time: 06:33 Total Score = 6 1a. Level of Consciousness (LOC) - 0(Alert) 1b. Level of Consciousness (LOC) (Year \T\ Age) - 0(Both) 1c. LOC Commands (Open \T\ Closes Eyes/Car Loader) - 0(Both) 2. Best Gaze (Lateral Gaze Paresis) - 0(Normal) 3. Visual Field Loss - 0(No visual loss) 4. Facial Palsy - 0(Normal) 5a. Left Arm: Motor (10-second hold) - 4(No movement) 5b. Right Arm: Motor (10-second hold) - 0(No drift) 6a. Left Leg: Motor (5-second hold - always test supine) - 0(No drift) 6b. Right Leg: Motor (5-second hold - always test supine) - 0(No drift) 7. Limb Ataxia (finger/nose \T\ heel/irizarry - test with eyes open) - 0(Absent) 8. Sensory Loss (pinprick arms/legs/face) - 2(Severe to total loss) 9. Best Language: Aphasia (description/naming/reading) - 0(No aphasia) 10. Dysarthria (speech clarity - read or repeat words) - 0(Normal) 11. Extinction and Inattention (visual/tactile/auditory/spatial/personal) - 0(No abnormality) Initials: NIH Stroke Scale - NIH Stroke Score Date: 02/24/2020 Time: 07:06 Total Score = 6 1a. Level of Consciousness (LOC) - 0(Alert) 1b. Level of Consciousness (LOC) (Year \T\ Age) - 0(Both) 1c. LOC Commands (Open \T\ Closes Eyes/Car Loader) - 0(Both) 2. Best Gaze (Lateral Gaze Paresis) - 0(Normal) 3. Visual Field Loss - 0(No visual loss) 4. Facial Palsy - 0(Normal) 5a. Left Arm: Motor (10-second hold) - 4(No movement) 5b. Right Arm: Motor (10-second hold) - 0(No drift) 6a. Left Leg: Motor (5-second hold - always test supine) - 0(No drift) 6b. Right Leg: Motor (5-second hold - always test supine) - 0(No drift) 7. Limb Ataxia (finger/nose \T\ heel/irizarry - test with eyes open) - 0(Absent) 8. Sensory Loss (pinprick arms/legs/face) - 2(Severe to total loss) 9. Best Language: Aphasia (description/naming/reading) - 0(No aphasia) 10. Dysarthria (speech clarity - read or repeat words) - 0(Normal) 11. Extinction and Inattention (visual/tactile/auditory/spatial/personal) - 0(No abnormality) Initials: NIH Stroke Scale - NIH Stroke Score Date: 02/24/2020 Time: 07:22 Total Score = 6 1a. Level of Consciousness (LOC) - 0(Alert) 1b. Level of Consciousness (LOC) (Year \T\ Age) - 0(Both) 1c. LOC Commands (Open \T\ Closes Eyes/Car Loader) - 0(Both) 2. Best Gaze (Lateral Gaze Paresis) - 0(Normal) 3. Visual Field Loss - 0(No visual loss) 4. Facial Palsy - 0(Normal) 5a. Left Arm: Motor (10-second hold) - 4(No movement) 5b. Right Arm: Motor (10-second hold) - 0(No drift) 6a. Left Leg: Motor (5-second hold - always test supine) - 0(No drift) 6b. Right Leg: Motor (5-second hold - always test supine) - 0(No drift) 7. Limb Ataxia (finger/nose \T\ heel/irizarry - test with eyes open) - 0(Absent) 8. Sensory Loss (pinprick arms/legs/face) - 2(Severe to total loss) 9. Best Language: Aphasia (description/naming/reading) - 0(No aphasia) 10. Dysarthria (speech clarity - read or repeat words) - 0(Normal) 11. Extinction and Inattention (visual/tactile/auditory/spatial/personal) - 0(No abnormality) Initials: pm1 NIH Stroke Scale - NIH Stroke Score Date: 02/24/2020 Time: 09:55 Total Score = 4 1a. Level of Consciousness (LOC) - 0(Alert) 1b. Level of Consciousness (LOC) (Year \T\ Age) - 0(Both) 1c. LOC Commands (Open \T\ Closes Eyes/Car Loader) - 0(Both) 2. Best Gaze (Lateral Gaze Paresis) - 0(Normal) 3. Visual Field Loss - 0(No visual loss) 4. Facial Palsy - 0(Normal) 5a. Left Arm: Motor (10-second hold) - 2(Drift, some effort against gravity) 5b. Right Arm: Motor (10-second hold) - 0(No drift) 6a. Left Leg: Motor (5-second hold - always test supine) - 0(No drift) 6b. Right Leg: Motor (5-second hold - always test supine) - 0(No drift) 7. Limb Ataxia (finger/nose \T\ heel/irizarry - test with eyes open) - 1(Present in one limb) 8. Sensory Loss (pinprick arms/legs/face) - 1(Mild to moderate loss) 9. Best Language: Aphasia (description/naming/reading) - 0(No aphasia) 10. Dysarthria (speech clarity - read or repeat words) - 0(Normal) 11. Extinction and Inattention (visual/tactile/auditory/spatial/personal) - 0(No abnormality) Initials: rb1 Signatures: Dispatcher [employer] EDKelly Portillo, RN RN Burke Sales MD MD rn Barber, Rebecca, RN RN rb1 Steven Hart NP ENGINEER OF SYSTEM DEVELOPMENT pm1 Minor Watts, RONNIE RN rv Corrections: (The following items were deleted from the chart) 07:11 06:53 Zofran (Ondansetron) 4 mg IVP once; over 2 minutes ordered. pm1 rv 07:11 06:53 morphine 2 mg IVP once; RASS on ADMIN: Combtv4, Very Agttd3, Agttd2, rv Rstlss1, AlertClm0, Drwsy-1, Lt Sdtn-2, Mod Sdtn-3, Dp Sdtn-4, UnArsble-5 ordered. pm1 07:46 07:19 CORONAVIRUS+ ordered. EDMS EDMS 08:38 08:30 Physician consultation: Joaquin Rodriguez MD Recommends Zocor 40mg, Aspirin pm1 81mg, Plavix 75 mg , pm1 08:55 06:29 Constitutional: This is a well developed, well nourished patient who is pm1 awake, alert, and in no acute distress. Head/Face: Normocephalic, atraumatic. Eyes: Pupils equal round and reactive to light, extra-ocular motions intact. Lids and lashes normal. Conjunctiva and sclera are non-icteric and not injected. Cornea within normal limits. Periorbital areas with no swelling, redness, or edema. ENT: Nares patent. No nasal discharge, no septal abnormalities noted. Tympanic membranes are normal and external auditory canals are clear. Oropharynx with no redness, swelling, or masses, exudates, or evidence of obstruction, uvula midline. Mucous membranes moist. Neck: Trachea midline, no thyromegaly or masses palpated, and no cervical lymphadenopathy. Supple, full range of motion without nuchal rigidity, or vertebral point tenderness. No Meningismus. Chest/axilla: Normal chest wall appearance and motion. Nontender with no deformity. No lesions are appreciated. Cardiovascular: Regular rate and rhythm with a normal S1 and S2. No gallops, murmurs, or rubs. Normal PMI, no JVD. No pulse deficits. Respiratory: Lungs have equal breath sounds bilaterally, clear to auscultation and percussion. No rales, rhonchi or wheezes noted. No increased work of breathing, no retractions or nasal flaring. Abdomen/GI: Soft, non-tender, with normal bowel sounds. No distension or tympany. No guarding or rebound. No evidence of tenderness throughout. Back: No spinal tenderness. No costovertebral tenderness. Full range of motion. Skin: Warm, dry with normal turgor. Normal color with no rashes, no lesions, and no evidence of cellulitis. MS/ Extremity: Pulses equal, no cyanosis. Neurovascular intact. Full, normal range of motion. pm1 10:10 06:52 02/24/2020 06:52 Transfer ordered to [address] Diagnosis is Cerebral infarction. Reason for transfer: Higher level of care. Accepting physician is [facility]. Condition is Stable. Problem is new. Symptoms have improved. pm1 10:14 10:10 02/24/2020 06:52 Transfer ordered to [address] Diagnosis is Cerebral infarction. Reason for transfer: Higher level of care. Accepting physician is [facility]. Condition is Stable. Problem is new. Symptoms have improved. rb1
[2020-02-24 07:05] LABS: Albumin 3.5 g/dL (3.4-5.0); Bilirubin Direct 0.2 mg/dL (0-0.2); Bilirubin Total 0.6 mg/dL (0.2-1.0); Potassium 3.7 mmol/L (3.5-5.1); Protein, Total 7.2 g/dL (6.4-8.2)
[2020-02-24] MEDS ORDERED: MORPHINE 2 MG/ML SYR ONE (07:06)
[2020-02-24] MEDS ORDERED: ONDANSETRON 4 MG/2 ML VIAL ONE (07:07)
--- NOTE | 2020-02-24 07:13 | RAD REPORT ---
EXAM DESCRIPTION: Zahida Single View02/24/2020 6:34 am CLINICAL HISTORY: Left arm weakness COMPARISON: 2011 FINDINGS: The lungs appear clear of acute infiltrate. The heart is normal size IMPRESSION: No acute abnormalities displayed
[2020-02-24 07:18] LABS: Blood Morphology Comment NOT SEEN (NOT SEEN); Platelet Estimate ADEQ; Urine White Blood Cell Casts OK
--- NOTE | 2020-02-24 08:20 | RAD REPORT ---
EXAM DESCRIPTION: CTHead angio02/24/2020 8:02 am CLINICAL HISTORY: Left arm weakness COMPARISON: None TECHNIQUE: CT angiogram of the head was obtained. 3D MIPS reconstruction performed. All CT scans are performed using dose optimization technique as appropriate and may include automated exposure control or mA/KV adjustment according to patient size. FINDINGS: Calcified plaque within the distal right internal carotid artery at the level of C2-3 resu lts in a high-grade stenosis. Calcified plaque within the distal left internal carotid artery at the level of C3 results in a moderate to high-grade stenosis The basilar, anterior cerebral, middle cerebral and posterior cerebral arteries are normal caliber. An aneurysm is not seen. A significant stenosis is not noted. IMPRESSION: High-grade stenosis distal right internal carotid artery estimated to be greater than 90 % Moderate to high-grade stenosis distal left internal carotid artery
[2020-02-24] MEDS ORDERED: NA CHLORIDE 0.9% 1,000 ML ONE (08:49)
[2020-02-24] MEDS ORDERED: CLOPIDOGREL 75 MG TABLET ONE (08:49)
[2020-02-24] MEDS ORDERED: ASPIRIN EC 81 MG TAB PO ONE (08:49)
[2020-02-24] MEDS ORDERED: ATORVASTATIN 20 MG TAB PO ONE (09:00)
[2020-02-24] MEDS ORDERED: FOLIC ACID 1 MG in NA CHLORIDE 0.9% 50 ML IV ONE (09:00)
[2020-02-24] MEDS ORDERED: ACETAMINOPHEN 325 MG TABLET ONE (09:44)
--- NOTE | 2020-02-24 14:29 | RAD REPORT ---
EXAM DESCRIPTION: CT - Ct Stroke Brain Wo Cont - 02/24/2020 7:17 am End of Addendum EXAM DESCRIPTION: CT of the head without contrast CLINICAL HISTORY: Headache;Weakness COMPARISON: None available TECHNIQUE: Axial CT of the head obtained from the skull apex to the skull base without contrast. FINDINGS: No acute intracranial hemorrhage identified. No mass, mass effect, shift of the midline, a bnormal extra-axial fluid collection or CT evidence of acute ischemic change identified. The ventricu lar system and sulcal spaces are mildly enlarged compatible with mild cerebral atrophy. Scattered a reas of hypodensity throughout the supratentorial white matter are nonspecific and may be related to chronic small vessel ischemic change. The visualized paranasal sinuses and the mastoids are clear. No skull fracture identified. Visuali zed orbits and globes are unremarkable. Atherosclerotic calcification of the intracranial internal ca rotid arteries. IMPRESSION: 1. No acute intracranial abnormality by CT criteria. This exam was performed according to our departmental dose-optimization program, which includes autom ated exposure control, adjustment of the mA and/or kV according to patient size and/or use of iterati ve reconstruction technique. Electronically signed by: Atrhur Jaime 02/24/2020 6:39 AM CDT Due to temporary technical issues with the PACS/Fluency reporting system, reports are being signed by the in house radiologist without review as a courtesy to ensure prompt reporting. The interpreting r adiologist is fully responsible for the content of the report.
--- NOTE | 2020-02-26 10:48 | EKG ---
Test Date: 2020-02-24 Test Time: 06:34:51 Appointment Scheduler: TLT MEASUREMENT RESULTS: Intervals: Rate: 69 WA: 178 QRSD: 70 QT: 416 QTc: 445 [place]: P: 28 WA: 178 QRS: 11 T: 46 INTERPRETIVE STATEMENTS: Normal sinus rhythm Low voltage QRS Nonspecific ST abnormality Abnormal ECG Compared to ECG 12/08/2011 07:31:41 ST (T wave) deviation now present T-wave abnormality no longer present Prolonged QT interval no longer present Electronically Signed On 02-26-20 10:44:05 CDT by Farrukh Lozada
== END 2020-02-24 10:14 | disposition short-term general hospital (02) ==
LOC: ER 06:13
DX: I63.9 Cerebral infarction, unspecified (principal); Z20.828 Contact with and (suspected) exposure to other viral communicable diseases; I10 Essential (primary) hypertension; R29.706 NIHSS score 6; Z95.818 Presence of other cardiac implants and grafts; Z88.0 Allergy status to penicillin; Z88.2 Allergy status to sulfonamides; Z88.8 Allergy status to other drugs, medicaments and biological substances
CPT/HCPCS: 93005; 85025; 80048; 36415; 85610; 82947; 80076; 85730; 70496; 70450; 71045; U0003; Q9967; J2270; J7030; J2405; 99291

== ENCOUNTER 2020-02-29 13:53 | Inpatient (IN) | payer OTHER ==
--- NOTE | 2020-03-03 17:14 | R.PREADM ---
PRE-ADMISSION SCREENING FORM SCREENING DATE AND TIME 03/03/2020 08:53 (CDT) ANTICIPATED REHAB ADMISSION DATE 03/05/[address] [facility] REFERRAL DATE AND TIME 03/03/2020 08:53 (CDT) REFERRAL ROOM# 8251 ACUTE ADMIT DATE 02/24/2020 Previous Rehabilitation(s): No. 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 Veto Truong M.D. MR# [id number] NAME JOSE YANG ADDRESS [address] [place] [address] PHONE [facility] [id number] DATE OF 1945 AGE 74 SSN# [id number] GENDER female MARITAL STATUS RACE unknown race ADMIT FROM 02 - [facility] PRE-HOSPITAL LIVING SETTING 01 - Home (private home/apt. board/care, assisted living, skilled nursing, transitional living) HOME TYPE AND DETAILS Type of home: single family house # of levels in the residence: 1 # of steps within the residence: 0 # of steps to enter the residence: 0 PRE-HOSPITAL LIVING WITH Family/Relatives FAMILY SUPPORT Yes PRIMARY FAMILY CONTACT NAME VICKY YANG PRIMARY FAMILY CONTACT PHONE PRIMARY FAMILY CONTACT RELATIONSHIP Spouse PHONE PRIMARY FAMILY CONTACT ON ADM.? no IS PRIMARY FAMILY CONTACT AUTH. REP.? no 1ST EMERGENCY CONTACT VICKY YANG 1ST CONTACT PHONE 1ST CONTACT RELATIONSHIP Spouse PHONE 1ST CONTACT ON ADM. no IS 1ST CONTACT AUTH. REP.? no PHONE 2ND CONTACT ON ADM.? no PATIENT EMPLOYMENT STATUS Retired (for age) PATIENT EMPLOYER No Employer PAYOR INFORMATION: 1ST PAYOR NAME [employer] 1ST PAYOR PHONE [phone] 1ST PAYOR POLICY ID [id number] INJURY/ILLNESS DUE TO ACCIDENT? No ANOTHER REPUBLICAN RESPONSIBLE? No PRIMARY REHAB/ACUTE DIAGNOSIS: Right CVA ONSET DATE 02/24/2020 REHAB IMPAIRMENT CATEGORY (LANI): 01 Stroke (STR) MEETS 60% rule AFFECTED EXTREMITIES: LLE, and LUE PRIMARY DIAGNOSIS-RELATED SURGERIES: No surgeries related to the primary diagnosis were performed. SUMMARY OF ACUTE HOSPITALIZATION: Pt. is a 74 yo Right-handed female of unknown race. On 02/24/[address] [facility] with sudden onset of left-side weakness. On 02/24/2020 she was admitted to [facility] with diagnosis Right CVA. Her impairment category is Stroke 01 - Left Body (Right Brain) (01.1). Pre-morbidly, Pt. was independent/mod-I in Locomotion, Safety Awareness, Self-Care, Communication, an d Transfers Control; and she had good Balance, Endurance, and Sphincter Control. Currently, she has deficits of Locomotion, Balance, Social Cognition, Transfers Control, Sphincter Co ntrol, Self-Care, and Communication. Pt. is now referred to [facility] for acute in-patient rehabilitation in order to maximize patient's functional independence in activities of daily living, strength, ROM, and mobi lity. Patient has realistic goal of being discharged at assistance level 6-Andrew to reside at Home with Fam thomas/Relatives. PAST MEDICAL HISTORY CORONARY ARTERY DISEASE GLAUCOMA HYPERTENSION SD ( MYOCARDIAL INFARCTION ) ( [facility]) PAD ( PERIPHERAL ARTERY DISEASE) ([facility]) PAST SURGICAL HISTORY: AMPUTATION ( B/I TOES) APPENDECTOMY MEDICATION ALLERGIES: No Known Drug Allergies (NKDA) ENVIRONMENTAL ALLERGIES: - Substance Allergies None Known - Other Allergies PENICILLIN SULFA ( ANTIBIOTICS) CORTICOSTEROIDS ( GLUCOCORTICOIDS) CODE STATUS: Full code WEIGHT/HEIGHT/BMI: WEIGHT 159 lbs HEIGHT 5' 2" BMI 29.1 DIET: - Diet Type Regular - Diet - Solid Texture Regular - Diet - Liquid Texture Regular - Tube Feed N/A REVIEW OF SYSTEMS: - Gen Alert and awake Lying in bed No apparent distress Oriented to: person, time, and place - Vital Signs Temperature: 96.7 F SBP/DBP: 145/68 Pulse: 65 Resp: 18 Vital signs stable, afebrile - CVS RRR VITAL SIGNS Temperature: 96.7 F SBP/DBP: 145/68 Pulse: 65 Resp: 18 Vital signs stable, afebrile MEDICATIONS/TREATMENT: Other- See attached MAR (Medication Administration Record). CURRENT SPHINCTER CONTROL: Pre-hospital bladder status: unspecified # of bladder accidents in the last 7 days prior to screenin Pre-hospital bowel status: unspecified # of bowel accidents in the last 7 days prior to screenin Last Bowel Movement Date: 03/03/2020 CURRENT LOCOMOTION STATUS: distance walked 0 feet DETAILED CURRENT FUNCTIONAL STATUS: - Bladder accident frequency: Ind - No accidents in the past 7 days - Bowel accident frequency: Ind - No accidents in the past 7 days - Walking score based on distance walked: 0(N/A) - Wheelchair score based on distance traveled: 0(N/A) QI SCORES: - Self-Care A. Eating 05-Setup or clean-up assistance B. Oral hygiene 03-Partial/moderate assistance C. Toileting hygiene 88-Not attempted due to medical condition or safety concerns E. Shower/bathe self 02-Substantial/maximal assistance F. Upper body dressing 02-Substantial/maximal assistance G. Lower body dressing 02-Substantial/maximal assistance H. Putting on/taking off footwear 02-Substantial/maximal assistance - Mobility A. Roll left and right 02-Substantial/maximal assistance B. Sit to lying 03-Partial/moderate assistance C. Lying to sitting on side of bed 03-Partial/moderate assistance D. Sit to stand 02-Substantial/maximal assistance E. Chair/[id number] transfer 02-Substantial/maximal assistance F. Toilet transfer 88-Not attempted due to medical condition or safety concerns G. Car transfer 88-Not attempted due to medical condition or safety concerns I. Walk 10 feet 88-Not attempted due to medical condition or safety concerns J. Walk 50 feet with two turns 88-Not attempted due to medical condition or safety concerns K. Walk 150 feet 88-Not attempted due to medical condition or safety concerns L. Walking 10 feet on uneven surfaces 88-Not attempted due to medical condition or safety concerns M. 1 step (curb) 88-Not attempted due to medical condition or safety concerns N. 4 steps 88-Not attempted due to medical condition or safety concerns O. 12 steps 88-Not attempted due to medical condition or safety concerns P. Picking up object 88-Not attempted due to medical condition or safety concerns R. Wheel 50 feet with two turns 88-Not attempted due to medical condition or safety concerns S. Wheel 150 feet 88-Not attempted due to medical condition or safety concerns - Bladder and Bowel Bladder continence Bowel continence - Endurance Fair - Balance Poor - Safety Awareness Fair CURRENT FUNC. DEFICITS: Endurance, Balance, Mobility, Safety Awareness, and Self-Care CURRENT / PREVIOUS ASSISTIVE DEVICES: 3-in-1 [facility] Bed Raised Toilet Rolling Walker Wheelchair HISTORY OF FALLS. HAS THE PATIENT HAD TWO OR MORE FALLS IN THE PAST YEAR OR ANY FALL WITH INJURY IN T HE PAST YEAR?: No PRIOR SURGERY. DID THE PATIENT HAVE MAJOR SURGERY DURING THE 100 DAYS PRIOR TO ADMISSION?: No THERAPY NOTES FROM ACUTE CARE: Attached. SPECIAL NEEDS: - Safety Concerns Skin breakdown precautions needed due to skin breakdown risk PATIENT NEEDS ACTIVE AND ONGOING THERAPEUTIC INTERVENTION OF MULTIPLE THERAPY DISCIPLINES, INCLUDING: - Occupational Therapy Cognitive Retraining. Visual Perceptual Training. - Dietary and Nutrition Adequate Nutrition. Nutritional Education. Nutritional Supplements. - Speech Therapy Cognitive Training. Expressive Language Skills. Memory Strategies. Receptive Language Skills. Speech Intelligibility Training. PATIENT NEEDS CLOSE MEDICAL SUPERVISION BY A REHABILITATION PHYSICIAN FOR: Coordination of Treatment Team PATIENT REQUIRES 24X7 REHAB NURSING FOR MEDICAL AND FUNCTIONAL MGT. OF THE FOLLOWING DEFICITS: Disease Management Medication Management Patient/Family Education Providing Safe Environment PATIENT REQUIRES INTENSIVE, COORDINATED INTERDISCIPLINARY APPROACH TO REHAB: Arranging Home Equipment/Services Discharge Planning Family Intervention/Training Senior International Tax Manager/Case Management PATIENT REHAB POTENTIAL: AnshuNegra TREY is able and expected to receive 3 hours of individualized therapy daily on at least 5 o f every 7 days Wilbert YANG's prognosis for significant practical improvement within a reasonable period of time ap pears Good Expected level of measurable improvement will be of a practical value to Wilbert YANG's functional c apacity or adaptations to impairments Has a viable Discharge Plan Medically appropriate; condition is sufficiently stable to participate in intensive rehab program DISCHARGE PLAN: - Estimated Length of Stay (days) 17. - Consensus on plan Discharge plan has been discussed with primary caregiver. Patient/Family is in agreement with the alivia n. Primary caregiver is in agreement with the plan. - Patient/Family Goals Return home independently. - Planned Living Setting Upon Discharge Home, to live with Family/Relatives. Transitional Living. RECOMMENDED CARE LEVEL: IRF RECOMMENDATION DETAILS: Recommended Admission to Comprehensive Rehabilitation Program to Increase Functional [place] SCREENER'S COMPLETENESS CONFIRMATION: - Screening Confirmation The patient data collection on this preadmission screening form is finished PHYSICIANS REVIEW AND ADMISSION DETERMINATION Admit - Based on my review of the Pre-Admission Screening results, in my medical judgment and experie nce, I concur with the findings and recommend admission to [facility], as this patient requires an IRF level of care. SIGNATURE PANEL: Chemical Engineering Technician - [electronically] signed by Jose Swan on 03/03/2020 at 12:24 (CDT) Clinical Liaison - [electronically] signed by Karina Santoro RN on 03/03/2020 at 15:17 (CDT) Physician Reviewer - [electronically] signed by Dr. Veto Truong M.D. on 03/03/2020 at 17:13 (CDT )
--- OUTSIDE RECORDS SUMMARY | 2020-03-03 19:08 | XMS REPORT | Clinical Summary ---
:1945 Author Organization [facility] Address [address] [place] [address] Care Team Providers Name Role Phone Unavailable Primary Care Provider Unavailable Allergies Active Allergy Reactions Severity Noted Date Comments Corticosteroids Other (See Comments) 02/24/2020 "it caused me to (Glucocorticoids) have glauc jude" Penicillins Rash High 02/24/2020 Sulfa (Sulfonamide Rash High 02/24/2020 Antibiotics) Medications Medication Sig Dispensed Refills Start Date End Date Status metoprolol tartrate Take 25 mg by 0 Active (LOPRESSOR) 25 MG mouth 2 (two) tabletIndications: high times daily. blood pressure hydroCHLOROthiazide Take 25 mg by 0 Active (HYDRODIURIL) 25 MG tablet mouth daily. cholecalciferol (VITAMIN Take 1,000 0 Active D3) 10 mcg (400 unit) Tab Units by tabletIndications: mouth daily. prevention of vitamin D deficiency aspirin 81 MG EC Take 81 mg by 0 Active tabletIndications: mouth daily. myocardial reinfarction prevention apixaban (ELIQUIS) 5 mg Take 1 tablet 60 tablet 0 03/03/2020 Active Tab tablet (5 mg total) by mouth 2 (two) times daily. atorvastatin (LIPITOR) 80 Take 1 tablet 30 tablet 0 03/03/2020 03/03/2021 Active MG tablet (80 mg total) by mouth nightly. latanoprost (XALATAN) Place 1 drop 2.5 mL 0 03/03/2020 08/3 07/2020 Active 0.005 % ophthalmic into both solution eyes nightly. losartan (COZAAR) 50 MG Take 1 tablet 30 tablet 0 03/03/2020 0 03/03/2021 Active tablet (50 mg total) by mouth daily. polyethylene glycol Take 17 g by 14 each 0 03/03/20202019 Active (GLYCOLAX) 17 gram packet mouth 2 (two) times daily for 3 days. Active Problems Problem Noted Date CAD (coronary artery disease) 02/27/2020 History of KS (myocardial infarction) 02/27/2020 History of coronary artery stent placement 02/27/2020 Essential hypertension 02/27/2020 Thoracic aortic atherosclerosis 02/27/2020 Overview: AVIS 02/26/20: with severe atherosclerosis of ascending and descending thoracic aorta Grade 3 plaque (atheroma < 5mm) in the a scending aorta and aortic arch. Grade 4 mountainous plaque (atheroma > 5 mm) diffusely throughout thedescending thoracic aorta . CVA (cerebral vascular accident) 02/27/2020 Overview: MRI 02/25/20: Right parieto-occipital str anika Left hemiparesis 02/27/2020 Overview: 2/2 right sided stroke Prediabetes Encounters Date Type Specialty Care Team Description 02/25/2020 Anesthesia Event Michelle Schilling MD 02/25/2020 Surgery Virtual, PROCEDURE DONE OUTSIDE Surgeon OR 02/24/2020 - Hospital Encounter General Internal [place], Cereb rovascular accident (CVA), unspecified mechanism (HCC); 03/03/2020 Medicine MD Bradley Weakness of hand; Jennifer, Umar, Essential hype rtension; Mixed hyperlipidemia; Basilio Curtis Cryptogenic stroke (HCC); MD [place] Coronary artery disease involving [place] coronary artery of [place] heart without angina pectoris; History of day nary artery stent placement; Thoracic aortic atherosclerosis (HCC) 02/24/2020 Travel after 03/03/2019 Social History Tobacco Use Types Packs/Day Years Used Date Former Smoker Smokeless Tobacco: Never Used Alcohol Use Drinks/Week oz/Week Comments No Alcohol Habits Answer Date Recorded How often do you have a drink containing alcohol? Never 02/24/2020 How many drinks containing alcohol do you have on a typical Not asked day when you are drinking? How often do you have six or more drinks on one occasion? No t asked Sex Assigned at Date Recorded Not on file Job Start Date Occupation Industry Not on file Not on file Not on file Travel History Travel Start Travel End No recent travel history available. Last Filed Vital Signs Vital Sign Reading Time Taken Blood Pressure 116/56 03/03/2020 12:02 PM CDT Pulse 62 03/03/2020 12:02 PM CDT Temperature 36.2 C (97.1 F) 03/03/2020 8:20 AM CDT Respiratory Rate 16 03/03/2020 3:17 PM CDT Oxygen Saturation 95% 03/03/2020 12:02 PM CDT Inhaled Oxygen Concentration 21% 03/02/2020 7:28 PM CDT Weight 72.5 kg (159 lb 13.3 oz) 02/24/2020 12:1 0 PM CDT Height 157.5 cm (5' 2") 02/24/2020 12:10 PM CDT Body Mass Index 29.23 02/24/2020 12:10 PM CDT Plan of Treatment Not on file Procedures Procedure Name Priority Date/Time Associated Comments Diagnosis CBC W/PLT COUNT & AUTO Routine 03/03/2020 4:41 R esults for this DIFFERENTIAL AM CDT procedure are i n the results section. BASIC METABOLIC PANEL Routine 03/03/2020 4:41 Re sults for this (7) AM CDT procedure are i n the results section. CBC W/PLT COUNT & AUTO Routine 03/03/2020 4:41 R esults for this DIFFERENTIAL AM CDT procedure are i n the results section. MAGNESIUM Routine 03/03/2020 4:41 Results for this AM CDT procedure are i n the results section. BASIC METABOLIC PANEL Routine 03/02/2020 11:08 Re sults for this (7) AM CDT procedure are i n the results section. CBC W/PLT COUNT & AUTO Routine 02/29/2020 5:48 R esults for this DIFFERENTIAL AM CDT procedure are i n the results section. CBC W/PLT COUNT & AUTO Routine 02/29/2020 5:48 R esults for this DIFFERENTIAL AM CDT procedure are i n the results section. BASIC METABOLIC PANEL Routine 02/29/2020 5:48 Re sults for this (7) AM CDT procedure are i n the results section. SODIUM, RANDOM URINE Routine 02/28/2020 11:12 Res ults for this AM CDT procedure are i n the results section. OSMOLALITY, URINE Routine 02/28/2020 11:12 Result s for this AM CDT procedure are i n the results section. OSMOLALITY, SERUM Routine 02/28/2020 10:10 Result s for this AM CDT procedure are i n the results section. CBC W/PLT COUNT & AUTO Routine 02/28/2020 4:54 R esults for this DIFFERENTIAL AM CDT procedure are i n the results section. CBC W/PLT COUNT & AUTO Routine 02/28/2020 4:54 R esults for this DIFFERENTIAL AM CDT procedure are i n the results section. BASIC METABOLIC PANEL Routine 02/28/2020 4:54 Re sults for this (7) AM CDT procedure are i n the results section. POCT-GLUCOSE METER Routine 02/27/2020 10:18 Resul ts for this AM CDT procedure are i n the results section. CT/CTA CAROTID Routine 02/27/2020 9:35 Results f or this AM CDT procedure are i n the results section. CBC W/PLT COUNT & AUTO Routine 02/27/2020 8:46 R esults for this DIFFERENTIAL AM CDT procedure are i n the results section. CBC W/PLT COUNT & AUTO Routine 02/27/2020 8:46 R esults for this DIFFERENTIAL AM CDT procedure are i n the results section. BASIC METABOLIC PANEL Routine 02/27/2020 8:46 Re sults for this (7) AM CDT procedure are i n the results section. CONT WAVE PULSED Routine 02/26/2020 11:20 DOPPLER AM CDT COLOR-FLOW MAPPING Routine 02/26/2020 11:20 AM CDT TRANSESOPHAGEAL ECHO Routine 02/26/2020 11:09 Res ults for this AM CDT procedure are i n the results section. CONT WAVE PULSED Routine 02/26/2020 8:44 DOPPLER AM CDT COLOR-FLOW MAPPING Routine 02/26/2020 8:44 AM CDT TRANSFUSION SERVICE 02/25/2020 6:00 REPORT - SCAN PM CDT NV CEREBRAL 4 VESSEL Routine 02/25/2020 3:41 Res ults for this ANGIOGRAM PM CDT procedure are i n the results section. MR BRAIN WITHOUT IV STAT 02/25/2020 1:47 Resu lts for this CONTRAST PM CDT procedure are i n the results section. XR CHEST 1 VIEW STAT 02/25/2020 11:48 Results for this PORTABLE/BEDSIDE AM CDT procedure a re in the results section. ECG 12-LEAD STAT 02/25/2020 8:28 Results for this AM CDT procedure are i n the results section. CBC W/PLT COUNT & AUTO Routine 02/25/2020 4:30 R esults for this DIFFERENTIAL AM CDT procedure are i n the results section. TROPONIN I STAT Add-on 02/25/2020 4:30 Results for this AM CDT procedure are i n the results section. LIPID PANEL Routine 02/25/2020 4:30 Results for this AM CDT procedure are i n the results section. COMPREHENSIVE METABOLIC Routine 02/25/2020 4:30 Results for this PANEL AM CDT procedure are i n the results section. CBC W/PLT COUNT & AUTO Routine 02/25/2020 4:30 R esults for this DIFFERENTIAL AM CDT procedure are i n the results section. ABORH, MANUAL STAT 02/24/2020 5:20 Results fo r this PM CDT procedure are i n the results section. TYPE AND SCREEN, Routine 02/24/2020 3:45 Results for this AUTOMATED PM CDT procedure are i n the results section. SARS-COV2/RT-PCR (HS Routine 02/24/2020 3:44 R esults for this & REF LABS) PM CDT procedure are i n the results section. 2D ECHO W/ DOPPLER Routine 02/24/2020 1:57 Resul ts for this (CW/PW/COLOR) PM CDT procedure are in the results section. PT/APTT Routine 02/24/2020 1:46 Results for this PM CDT procedure are i n the results section. VITAMIN B12 AND FOLATE Routine 02/24/2020 1:45 R esults for this PM CDT procedure are i n the results section. LIPID PANEL Routine 02/24/2020 1:45 Results for this PM CDT procedure are i n the results section. TSH/FREE T4 IF Routine 02/24/2020 1:45 Results f or this INDICATED PM CDT procedure are i n the results section. COMPREHENSIVE METABOLIC Routine 02/24/2020 1:45 Results for this PANEL PM CDT procedure are i n the results section. TROPONIN I Routine 02/24/2020 1:45 Results for this PM CDT procedure are i n the results section. CBC W/PLT COUNT & AUTO Routine 02/24/2020 1:44 R esults for this DIFFERENTIAL PM CDT procedure are i n the results section. HEMOGLOBIN A1C Routine 02/24/2020 1:44 Results f or this PM CDT procedure are i n the results section. CBC W/PLT COUNT & AUTO Routine 02/24/2020 1:44 R esults for this DIFFERENTIAL PM CDT procedure are i n the results section. ECG 12-LEAD Routine 02/24/2020 1:25 Results for this PM CDT procedure are i n the results section. after 03/03/2019 Results CBC with platelet count + automated diff (03/03/2020 4:41 AM CDT)Only the most recent of6 resultswithin the time period is included. WBC 6.9 3.5 - 10.5 K/L [facility] RBC 5.45 (H) 3.93 - 5.22 M/L [facility] Hemoglobin 14.8 11.2 - 15.7 GM/DL [facility] Hematocrit 45.2 (H) 34.1 - 44.9 % [facility] MCV 82.9 79.4 - 94.8 fL [facility] MCH 27.2 25.6 - 32.2 pg [facility] MCHC 32.7 32.2 - 35.5 GM/DL [facility] RDW 15.9 (H) 11.7 - 14.4 % [facility] Platelets 150 150 - 450 K/CU MM [facility] MPV 11.7 9.4 - 12.3 fL [facility] nRBC 0 0 - 0 /100 WBC [facility] % Neutros 68 % [facility] % Lymphs 12 % [facility] % Monos 9 % [facility] % Eos 11 % [facility] % Baso 0 % [facility] # Neutros 4.64 1.56 - 6.13 K/L [facility] # Lymphs 0.80 (L) 1.18 - 3.74 K/L [facility] # Monos 0.63 (H) 0.24 - 0.36 K/L [facility] # Eos 0.74 (H) 0.04 - 0.36 K/L [facility] # Baso 0.03 0.01 - 0.08 K/L [facility] Immature Granulocytes-Relative 0 0 - 1 % C [facility] Specimen Blood Performing Organization Address City/[facility]/Zipcode Phone Number [address] [address] CENTER Magnesium (03/03/2020 4:41 AM CDT) Magnesium 2.3 1.6 - 2.6 mg/dL [facility] Specimen Blood Narrative Performed At Document Clerk ID - PIAYA L [facility]ENTER Performing Organization Address [facility]/Zipcode Phone Number [address] [address] CENTER Basic Metabolic Panel (03/03/2020 4:41 AM CDT)Only the most recent of5 results within the time period is included. Sodium 132 (L) 136 - 145 meq/L [facility] Potassium 3.9 3.5 - 5.1 meq/L [facility] Chloride 96 (L) 98 - 107 meq/L [facility] CO2 27 22 - 29 meq/L [facility] BUN 13 7 - 21 mg/dL [facility] Creatinine 0.76 0.57 - 1.25 mg/dL [facility] Glucose 96 70 - 105 mg/dL [facility] Calcium 8.7 8.4 - 10.2 mg/dL [facility] EGFR 74Comment: ESTIMATED GFR IS mL/min/1.73 sq m [facility] NOT ACCURATE CREATININE [facility] CLEARANCE IN PREDICTING GLOMERULAR FILTRATION RATE. ESTIMATED GFR IS NOT APPLICABLE FOR DIALYSIS PATIENTS. Specimen Blood Narrative Performed At Document Clerk ID - SANIYA L [facility] Specimen slightly icteric Performing Organization Address [facility] [place] [address] [place] Sodium, random urine (02/28/2020 11:12 AM CDT) Sodium Urine 73 meq/L [facility] Specimen Urine Narrative Performed At Reference Range: No Normals [facility] Document Clerk ID - NTP Performing Organization Address [facility] Phone Number [address] [address] [place] Osmolality, urine (02/28/2020 11:12 AM CDT) Osmolality, Ur 597 50-1,200 mOsm/kg mOsm/kg [facility] Specimen Urine Performing Organization Address [facility] [place] [address] [place] Osmolality, serum (02/28/2020 10:10 AM CDT) Osmolality Serum 258 (L) 275 - 295 mOsm/kg [facility] Specimen Blood Performing Organization Address [facility] [place] [address] [place] POC-Glucose meter (02/27/2020 10:18 AM CDT) POC-Glucose Meter 106Comment: : TESTED AT 70 - 110 mg/dL [address] [place], [address]: Document Clerk/Chief Merchandising Officer ID = [id number] for MICHELLE LEE Specimen Blood Performing Organization Address [facility] Phone Number [address] [address] [place] CTA carotid (02/27/2020 9:35 AM CDT) Specimen Narrative Performed At FINAL REPORT GE RIS CTA Neck and upper chest Clinical history: Unlisted Reason for Ex am Neuro deficit, acute, stroke suspected Evaluate vertebral artery origin TECHNIQUE: Contiguous axial images of th e neck with intravenous contrast. Coronal and sagittal reformati ons were also performed. 3-D reconstructions were performed using a v olume rendered technique separately on a workstation. This exam was performed according to the departmental dose optimization program which includes auto mated exposure control, adjustment of the mA and/or kV according to the patient size, and/or use of an iterative reconstruction techn ique. Stenosis evaluation reported in complian ce with NASCET criteria. COMPARISON: None FINDINGS: Great vessel origins: No occlusion or hi gh-grade stenosis. Carotid arteries: Atherosclerosis of the bilateral carotid bifurcations. There is approximately 60% focal stenosis of the right ICA and 50% focal stenosis of the left I CA per NASCET criteria. Vertebral arteries: Mild stenosis of the left vertebral origin. Mild atherosclerosis of the right vertebral o rigin without significant stenosis. The remainder of the vertebral arteries are of normal course and caliber. No fracture or suspicious osseous lesion . There is a 1.2 cm left thyroid lobe nodule, for which no furthe r imaging is recommended. Visualized lung apices are clear. Bilate ral pleural thickening and calcification. Trace pleural fluid. IMPRESSION: 60% focal stenosis of the right ICA and 50% focal stenosis of the left ICA per NASCET criteria. Mild stenosis of the left vertebral orig in. Signed: Christian Leach MD Report Verified Date/Time:02/27/2020 14:04:11 Procedure Note Interface, External Ris In - 02/27/2020 2:06 PM CDT FINAL REPORT CTA Neck and upper chest Clinical history: Unlisted Reason for Ex am Neuro deficit, acute, stroke suspected Evaluate vertebral artery origin TECHNIQUE: Contiguous axial images of th e neck with intravenous contrast. Coronal and sagittal reformati ons were also performed. 3-D reconstructions were performed using a v olume rendered technique separately on a workstation. This exam was performed according to the departmental dose optimization program which includes auto mated exposure control, adjustment of the mA and/or kV according to the patient size, and/or use of an iterative reconstruction techn ique. Stenosis evaluation reported in complian ce with NASCET criteria. COMPARISON: None FINDINGS: Great vessel origins: No occlusion or hi gh-grade stenosis. Carotid arteries: Atherosclerosis of the bilateral carotid bifurcations. There is approximately 60% focal stenosis of the right ICA and 50% focal stenosis of the left I CA per NASCET criteria. Vertebral arteries: Mild stenosis of the left vertebral origin. Mild atherosclerosis of the right vertebral o rigin without significant stenosis. The remainder of the vertebral arteries are of normal course and caliber. No fracture or suspicious osseous lesion . There is a 1.2 cm left thyroid lobe nodule, for which no furthe r imaging is recommended. Visualized lung apices are clear. Bilate ral pleural thickening and calcification. Trace pleural fluid. IMPRESSION: 60% focal stenosis of the right ICA and 50% focal stenosis of the left ICA per NASCET criteria. Mild stenosis of the left vertebral orig in. Signed: Christian Leach MD Report Verified Date/Time: 02/27/2020 1 4:04:11 Performing Organization Address City/State/Zipcode Phone Number [place] Transesophageal echo (02/26/2020 11:09 AM CDT) Ejection Fraction [facility] ECHO HEAR TLAB MKCKESSON CPACS Specimen Narrative Performed At Transesophageal Echocardiography Report (AVIS) [facility] Dem[facility] Patient Name MON[place],Date of Study 02/26/2020 JOSE [id number] GenderFem gertrude Visit Number [id number] RaceCauc [id number] m Number [id number] Number Date of Birth1945 Referring Physician Age74 year(s) Gluer Machine Operator Janice Elliott ms RDCS Tamir Guido, Physician Fellow Margoth Aguirre Procedure Type of Study AVIS procedure:TRANSESOPHAGEAL ECHO (Routine) Indications:Suspected cardiac source of emboli. Clinical History CAD, PCI (2013), KS, HTN, HLD Contrast Medium: Bubble Study. Height: 62 inches Weight: 72.12 kg (159 lbs) BSA: 1.73 m^2 BMI: 29.08 kg/m^2 HR: 90 bpm BP: 182/77 mmHg AVIS Performed By: the attending and the fellow Procedure Informed Consent AVIS procedure notes Moderate sedation by performing MD using 3 mg IV versed and 75 mcg IV fentanyl. . Type of Anesthesia: Moderate sedation Summary Aortic root size (SInus of Valsalva diameter) is normal . The aortic sinotubular junction appears normal . Proximal ascending aorta size is normal . Grade 3 plaque (atheroma < 5mm) in the ascending aorta and aortic arch. Grade 4 mountainous plaque (atheroma > 5mm) diffusely throughout the descending thoracic aorta . IV saline contrast injection was negative for a PFO (patent foramen ovale) at rest and post Valsalva . No other intracardiac potential source of embolus identified. Signature Findings Rhythm/BPRegular sinus rhythm during the exam. Left Ventricle Normal left ventricular chamber size. Normal wall th ickness. Normal overall left ventricular systolic fu nction. No apparent segmental wall motio n ab normalities. Left AtriumLA is enlarged but severity assessment is un reliable due to known AVIS sector size li mitation. LA appendage morphology is simple (wind soc k) . No LA appendage Thrombus visualized. Right VentricleThe right ventricular chamber size and systolic fu nction are within normal limits. Right Atrium RA size is mildly dilated. Atrial SeptumLipomatous hypertrophy of the interatrial septum is pr esent. A patent foramen ovale (PFO) is not demons trated by co sandoval Doppler. IV saline contrast injection was negative f or a PFO (p atent foramen ovale) at rest and post Va lsalva . Aortic Valve Normal AoV structure and function by limited views an d Doppler. Mitral Valve Trace mitral regurgitation. Tricuspid ValveModerate TR. Es timated PASP is 50-55mmHg plus RA pressu re. Pulmonic Valve Normal PV structure and function by limited views an d Doppler. AortaAortic root size (SInus of Valsalva diameter) i s no rmal . Th e aortic sinotubular junction appears no rmal . Pr oximal ascending aorta size is normal . Gr sung 3 plaque (atheroma < 5mm) in the asc ending ao rta and aortic arch. Gr sung 4 mountainous plaque (atheroma > 5mm ) di ffusely throughout the descending thorac ic aorta . PericardiumNo significant pericardial effusion is visualized. IVC/SVC/PA/PV/PleuralThe pulmonary veins appear normal. Chambers/Structures Aorta Ao Root S of Shruti.: 2.44 cm Ascending Aor ta: 2.[address] Junction: 2.03 cm Procedure Note Interface, External Ris In - 02/26/2020 3:39 PM CDT Transesophageal Echocardiography Report (AVIS) Demographics Patient Name TREY, Date of Study 02/26/2020 JOSE Gender Female Visit Number [id number] [address] [place] [id number] Number Date of 1945 Referri constantino Physician Age 74 year(s) Sonogra pher Janice Harris RDCS Interpr eting Daisy Beaulieui an Fellow Margoth Aguirre Procedure Type of Study AVIS procedure:TRANSESOPHAGEAL ECHO (Routine) Indications:Suspected cardiac source of emboli. Clinical History CAD, PCI (2013), KS, HTN, HLD Contrast Medium: Bubble Study. Height: 62 inches Weight: 72.12 kg (159 lbs) BSA: 1.73 m^2 BMI: 29.08 kg/m^2 HR: 90 bpm BP: 182/77 mmHg AVIS Performed By: the attending and the fellow Procedure Informed Consent AVIS procedure notes Moderate sedation by performing MD pau pratt 3 mg IV versed and 75 mcg IV fentanyl. . Type of Anesthesia: Moderate sedation Summary Aortic root size (SInus of Valsalva martin meter) is normal . The aortic sinotubular junction appears normal . Proximal ascending aorta size is normal . Grade 3 plaque (atheroma < 5mm) in the ascending aorta and aortic arch. Grade 4 mountainous plaque (atheroma > 5mm) diffusely throughout the descending thoracic aorta . IV saline contrast injection was negati ve for a PFO (patent foramen ovale) at rest and post Valsalva . No other intracardiac potential source of embolus identified. Signature Findings Rhythm/BP Regular sinus rh ythm during the exam. Left Ventricle Normal left vent ricular chamber size. Normal wall thickness. Mayi l overall left ventricular systolic function. No ricky arent segmental wall motion abnormalities. Left Atrium LA is enlarged b ut severity assessment is unreliable due t o known AVIS sector size limitation. LA appendage mor phology is simple (wind sock) . No LA appendage Thrombus visualized. Right Ventricle The right ventri cular chamber size and systolic function are wit hin normal limits. Right Atrium RA size is mildl y dilated. Atrial Septum Lipomatous hyper trophy of the interatrial septum is present. A patent foramen ovale (PFO) is not demonstrated by color Doppler. IV saline contra st injection was negative for a PFO (patent foramen ovale) at rest and post Valsalva . Aortic Valve Normal AoV struc ture and function by limited views and Doppler. Mitral Valve Trace mitral reg urgitation. Tricuspid Valve Moderate TR. Estimated PASP i s 50-55mmHg plus RA pressure. Pulmonic Valve Normal PV struct ure and function by limited views and Doppler. Aorta Aortic root size (SInus of Valsalva diameter) is normal . The aortic sinot ubular junction appears normal . Proximal ascendi ng aorta size is normal . Grade 3 plaque ( atheroma < 5mm) in the ascending aorta and aortic arch. Grade 4 mountain ous plaque (atheroma > 5mm) diffusely throug hout the descending thoracic aorta . Pericardium No significant p ericardial effusion is visualized. IVC/SVC/PA/PV/Pleural The pulmonary ve ins appear normal. Chambers/Structures Aorta Ao Root S of Shruti.: 2.44 cm Ascending Aorta: 2.[address] Junction: 2.03 cm Performing Organization Address City/State/Zipcode Phone Number [facility] TRANSFUSION SERVICE REPORT - SCAN (02/25/2020 6:00 PM CDT) Narrative Performed At This result has an attachment that is no t available. NV cerebral 4 vessel angiogram (02/25/2020 3:41 PM CDT) Specimen Narrative Performed At FINAL REPORT [place] Date of Procedure:February 25, 2020 Surgeon: Radu JAVIER Service Superintendent: Steven Nielsen MD Pre-operative diagnosis: Carotid Stenosi s Post-operative diagnosis: Carotid Stenos is Procedure: Diagnostic Angiogram Vessels studied Right Radial Artery Right Vertebral Artery Right Common Carotid Artery Left Common Carotid Artery Anesthesiologist: per anesthesia records Anesthesia Type: MAC Complications: None Indication for procedure: 74F presenting with left sided weakness, right ischemic stroke and indication of carotid stenosis on non-in vasive imaging. DSA for characterization of degree of stenosis. Procedure in Detail: Angiogram Following explanation of the benefits, r isks and alternatives for the procedure, informed consent was obtained from the patient.The risks including but not limited to stroke, int racranial hemorrhage, vascular injury to the cervical or acces s vessels were discussed.A time-out was performed. Both groins and wrists were prepped in the usual sterile fashion using Chloroprep, and sterilely draped.Access was initiated at the right distal radial artery and a 5/6 slender sheath was placed and maintained on hepa rinized flush. A Lowe 2 glide diagnostic catheter was introduced and brought into the aortic arch under fluoroscopic guidance. The di agnostic catheter was used to catheterize the right common carotid art dominic, right vertebral artery and left common carotid artery. Upon eac h successive selective catheterization, digital subtraction ang iography using the appropriate rate and volume of contrast in multiple projections was performed. After adequate visualization of all vessels all sheaths and catheters were removed and a prelude band was used for radial hemostasis. The patient was transported to PACU in stable condition. Findings: Right Radial Artery (AP) -radial artery is widely patent without evidence of ulceration . There is very mild proximal radial spasm . Right Common Carotid Artery (AP, Lateral ) -There is a calcified atherosclerotic pl aque located circumferentially at the internal caroti d origin that causes a maximum of 42% stenosis by NASCET criter ia. There is not a flow limiting stenosis as the ICA/ECA territo pritesh fill concurrently. -The visualized branches of the external carotid artery are normal in course and appearance. There is no evide nce of arteriovenous shunting. The capillary and venous phase s are normal -The cervical carotid artery is patent w ithout areas of stenosis, dissection or ulceration; and is without branches -The petrous carotid artery is patent wi thout areas of stenosis, dissection or ulceration the mandibulovi low artery is not visualized, no petrosal segment aneurysm s -The cavernous carotid artery is patent without areas of stenosis, dissection, or ulceration, meningohypoph yseal trunk and inferolateral trunks are not visualized, there are no cavernous segment aneurysms -Thesupraclinoidal carotid artery, t he opthalmic, communicating, and choroidal segments are patent withou t areas of stenosis and without aneurysms. The posterior communi cating artery is small sized, the anterior choroidal artery is visuali zed. The A1 and M1 segments are visualized and are without stenosis or vasospasm. -The ILDEFONSO fill physiologically throughout their territorywithout cross-filling across the anterior commun icating artery. There is no noted stenosis or vasospasm noted within its branches. There are no noted aneurysms of the pericallosal or s upramarginal branches. There is no evidence of arteriovenous shunting -The MCA's fill physiologically througho ut their territory there is no noted stenosis, occlusion or vasospas m noted within its branches. There is no evidence for aneurysm. There is no evidence of arteriovenous shunting. The capillary phase is normal without ar eas of malperfusion, the venous phase demonstrates a normal venou s draining pattern Right Vertebral Artery (Henry, Lateral) -The cervical course of the right verteb ral artery has a normal course and appearance. Muscular branches arising from the distal segments are visualized. There is no art eriovenous shunting nor vascular malformations. There is cross-filling into the left itzel tebral artery retrograde to the distal V2 segment. There is no steno sis or ulceration noted in the vertebral or basilar arteries. AICA /PICA complexes are noted bilaterally, and superior cerebellar art eries are visualized no evidence of aneurysms at their origins. The payroll and benefits manager fill symmetrically, there is no evidence of stenosis or vaso spasm. There is faint reflux in to the posterio r communicating arteries. The capillary phase is normal and a norm al venous drainage pattern is noted Left Common Carotid Artery (AP, Lateral, ) -There is a calcified atherosclerotic pl aqueat the bifurcation that causes a maximum of 35% stenosis by NASC ET criteria. There is not a flow limiting stenosis as the ICA/ECA te rritories fill concurrently. -The visualized branches of the external carotid artery are normal in course and appearance. There is no evide nce of arteriovenous shunting. The capillary and venous phase s are normal -The cervical carotid artery is patent w ithout areas of stenosis, dissection or ulceration; and is without branches -The petrous carotid artery is patent wi thout areas of stenosis, dissection or ulceration the mandibulovi low artery is not visualized, no petrosal segment aneurysm s -The cavernous carotid artery is patent without areas of stenosis, dissection, or ulceration, meningohypoph yseal trunk and inferolateral trunks are not visualized, there are no cavernous segment aneurysms -Thesupraclinoidal carotid artery, t he opthalmic, communicating, and choroidal segments are patent withou t areas of stenosis and without aneurysms. The posterior communi cating artery is small sized and with an infundibular origin, the ant erior choroidal artery is visualized. The A1 and M1 segments are v isualized and are without stenosis or vasospasm. -The ILDEFONSO fill physiologically throughout their territorywithout cross-filling across the anterior commun icating artery. There is no noted stenosis or vasospasm noted within its branches. There are no noted aneurysms of the pericallosal or s upramarginal branches. There is no evidence of arteriovenous shunting -The MCA's fill physiologically througho ut their territory there is no noted stenosis, occlusion or vasospas m noted within its branches. There are no noted aneurysms. There is n o evidence of arteriovenous shunting. The capillary phase is normal without ar eas of malperfusion, the venous phase demonstrates a normal venou s draining pattern Summary of Findings 1. Moderate bilateral carotid stenosis. 42% stenosis by NASCET criteria on right, 35% stenosis by NASCE T criteria on the left. 2. No other vascular malformations noted 3. No radiographic or clinical evidence of complication Signed: Imtiaz Chaudhary MD Report Verified Date/Time:02/27/2020 11:19:35 Reading [facility] Y[facility] Neuro [place] o Reading Room Procedure Note Interface, External Ris In - 02/27/2020 11:21 AM CDT FINAL REPORT Date of Procedure: February 25, 2020 Surgeon: Radu JAVIER Service Superintendent: Steven Nielsen MD Pre-operative diagnosis: Carotid Stenosi s Post-operative diagnosis: Carotid Stenos is Procedure: Diagnostic Angiogram Vessels studied Right Radial Artery Right Vertebral Artery Right Common Carotid Artery Left Common Carotid Artery Anesthesiologist: per anesthesia records Anesthesia Type: MAC Complications: None Indication for procedure: 74F presenting with left sided weakness, right ischemic stroke and indication of carotid stenosis on non-in vasive imaging. DSA for characterization of degree of stenosis. Procedure in Detail: Angiogram Following explanation of the benefits, r isks and alternatives for the procedure, informed consent was obtained from the patient. The risks including but not limited to stroke, int racranial hemorrhage, vascular injury to the cervical or acces s vessels were discussed. A time-out was performed. Both groins and wrists were prepped in the usual sterile fashion using Chloroprep, and sterilely draped. Access was initiated at the right distal radial artery and a 5/6 slender sheath was placed and maintained on hepa rinized flush. A [employer] 2 glide diagnostic catheter was introduced and brought into the aortic arch under fluoroscopic guidance. The di agnostic catheter was used to catheterize the right common carotid art dominic, right vertebral artery and left common carotid artery. Upon eac h successive selective catheterization, digital subtraction ang iography using the appropriate rate and volume of contrast in multiple projections was performed. After adequate visualization of all vessels all sheaths and catheters were removed and a prelude band was used for radial hemostasis. The patient was transported to PACU in stable condition. Findings: Right Radial Artery (AP) -radial artery is widely patent without evidence of ulceration . There is very mild proximal radial spasm . Right Common Carotid Artery (AP, Lateral ) -There is a calcified atherosclerotic pl aque located circumferentially at the internal caroti d origin that causes a maximum of 42% stenosis by NASCET criter ia. There is not a flow limiting stenosis as the ICA/ECA territo pritesh fill concurrently. -The visualized branches of the external carotid artery are normal in course and appearance. There is no evide nce of arteriovenous shunting. The capillary and venous phase s are normal -The cervical carotid artery is patent w ithout areas of stenosis, dissection or ulceration; and is without branches -The petrous carotid artery is patent wi thout areas of stenosis, dissection or ulceration the mandibulovi low artery is not visualized, no petrosal segment aneurysm s -The cavernous carotid artery is patent without areas of stenosis, dissection, or ulceration, meningohypoph yseal trunk and inferolateral trunks are not visualized, there are no cavernous segment aneurysms -The supraclinoidal carotid artery, the opthalmic, communicating, and choroidal segments are patent withou t areas of stenosis and without aneurysms. The posterior communi cating artery is small sized, the anterior choroidal artery is visuali zed. The A1 and M1 segments are visualized and are without stenosis or vasospasm. -The ILDEFONSO fill physiologically throughout their territory without cross-filling across the anterior commun icating artery. There is no noted stenosis or vasospasm noted within its branches. There are no noted aneurysms of the pericallosal or s upramarginal branches. There is no evidence of arteriovenous shunting -The MCA's fill physiologically througho ut their territory there is no noted stenosis, occlusion or vasospas m noted within its branches. There is no evidence for aneurysm. There is no evidence of arteriovenous shunting. The capillary phase is normal without ar eas of malperfusion, the venous phase demonstrates a normal venou s draining pattern Right Vertebral Artery (Henry, Lateral) -The cervical course of the right verteb ral artery has a normal course and appearance. Muscular branches arising from the distal segments are visualized. There is no art eriovenous shunting nor vascular malformations. There is cross-filling into the left itzel tebral artery retrograde to the distal V2 segment. There is no steno sis or ulceration noted in the vertebral or basilar arteries. AICA /PICA complexes are noted bilaterally, and superior cerebellar art eries are visualized no evidence of aneurysms at their origins. The payroll and benefits manager fill symmetrically, there is no evidence of stenosis or vaso spasm. There is faint reflux in to the posterio r communicating arteries. The capillary phase is normal and a norm al venous drainage pattern is noted Left Common Carotid Artery (AP, Lateral, ) -There is a calcified atherosclerotic pl aque at the bifurcation that causes a maximum of 35% stenosis by NASC ET criteria. There is not a flow limiting stenosis as the ICA/ECA te rritories fill concurrently. -The visualized branches of the external carotid artery are normal in course and appearance. There is no evide nce of arteriovenous shunting. The capillary and venous phase s are normal -The cervical carotid artery is patent w ithout areas of stenosis, dissection or ulceration; and is without branches -The petrous carotid artery is patent wi thout areas of stenosis, dissection or ulceration the mandibulovi low artery is not visualized, no petrosal segment aneurysm s -The cavernous carotid artery is patent without areas of stenosis, dissection, or ulceration, meningohypoph yseal trunk and inferolateral trunks are not visualized, there are no cavernous segment aneurysms -The supraclinoidal carotid artery, the opthalmic, communicating, and choroidal segments are patent withou t areas of stenosis and without aneurysms. The posterior communi cating artery is small sized and with an infundibular origin, the ant erior choroidal artery is visualized. The A1 and M1 segments are v isualized and are without stenosis or vasospasm. -The ILDEFONSO fill physiologically throughout their territory without cross-filling across the anterior commun icating artery. There is no noted stenosis or vasospasm noted within its branches. There are no noted aneurysms of the pericallosal or s upramarginal branches. There is no evidence of arteriovenous shunting -The MCA's fill physiologically througho ut their territory there is no noted stenosis, occlusion or vasospas m noted within its branches. There are no noted aneurysms. There is n o evidence of arteriovenous shunting. The capillary phase is normal without ar eas of malperfusion, the venous phase demonstrates a normal venou s draining pattern Summary of Findings 1. Moderate bilateral carotid stenosis. 42% stenosis by NASCET criteria on right, 35% stenosis by NASCE T criteria on the left. 2. No other vascular malformations noted 3. No radiographic or clinical evidence of complication Signed: Imtiaz Chaudhary MD Report Verified Date/Time: 02/27/2020 1 1:19:35 Reading Location: [facility] Y[facility] Neuro [place] [facility] Reading Room Performing Organization Address City/State/Zipcode Phone Number [facility] MR brain without IV contrast (02/25/2020 1:47 PM CDT) Specimen Narrative Performed At FINAL REPORT [facility] MR, BRAIN, WITHOUT CONTRAST INDICATION: Stroke, follow up TECHNIQUE: Multiplanar, multisequence MR imaging of the brain without intravenous contrast. COMPARISON: Outside CT and CTA 02/24/2020 FINDINGS: Intracranial: There is multifocal restri cted diffusion and FLAIR hyperintensity within the right posterio r parietal lobe and right mesial occipital lobe. There are foci of susceptibility weighted signal dropout within the mesial parieta l occipital junction suggestive of hemorrhagic conversion. No mass effect. No hydrocephalus. The distal right ADVERTISING AGENCY MANAGER flow void is not visualized. Sinuses: No evidence of sinusitis. Masto ids are clear. Orbits: Globes are intact. Calvarium \\T\\ scalp: Unremarkable. IMPRESSION: Acute right parieto-occipital infarct wi th small focus of hemorrhagic conversion at the parieto-occipital junc tion. Signed: Christian Leach MD Report Verified Date/Time:02/25/2020 14:04:12 Procedure Note Interface, External Ris In - 02/25/2020 2:06 PM CDT FINAL REPORT MR, BRAIN, WITHOUT CONTRAST INDICATION: Stroke, follow up TECHNIQUE: Multiplanar, multisequence MR imaging of the brain without intravenous contrast. COMPARISON: Outside CT and CTA 02/24/2020 FINDINGS: Intracranial: There is multifocal restri cted diffusion and FLAIR hyperintensity within the right posterio r parietal lobe and right mesial occipital lobe. There are foci of susceptibility weighted signal dropout within the mesial parieta l occipital junction suggestive of hemorrhagic conversion. No mass effect. No hydrocephalus. The distal right ADVERTISING AGENCY MANAGER flow void is not visualized. Sinuses: No evidence of sinusitis. Masto ids are clear. Orbits: Globes are intact. Calvarium \\T\\ scalp: Unremarkable. IMPRESSION: Acute right parieto-occipital infarct wi th small focus of hemorrhagic conversion at the parieto-occipital junc tion. Signed: Christian Leach MD Report Verified Date/Time: 02/25/2020 1 4:04:12 Performing Organization Address City/[facility] [place] [facility] XR chest 1 view portable / bedside (02/25/2020 11:48 AM CDT) Specimen Narrative Performed At FINAL REPORT [facility] INDICATION: PRe op COMPARISON: None TECHNIQUE: Single frontal view of the est. FINDINGS: Lungs and pleura: Bibasilar atelectasis No effusion. Heart and mediastinum: Normal heart size . Unremarkable mediastinal contours. Osseous structures: No acute abnormality . Other: None. Signed: Sonia Hay MD Report Verified Date/Time:02/25/2020 11:54:47 Reading Location: [employer] [place] [employer] Reading Room Procedure Note Interface, External Ris In - 02/25/2020 11:57 AM CDT FINAL REPORT INDICATION: PRe op COMPARISON: None TECHNIQUE: Single frontal view of the est. FINDINGS: Lungs and pleura: Bibasilar atelectasis No effusion. Heart and mediastinum: Normal heart size . Unremarkable mediastinal contours. Osseous structures: No acute abnormality . Other: None. Signed: Sonia Hay MD Report Verified Date/Time: 02/25/2020 1 1:54:47 Reading Location: [employer] [facility] [employer] [facility] Reading Room Performing Organization Address [facility] [place] Phone Number [facility]IS ECG 12 lead (02/25/2020 8:28 AM CDT)Only the most recent of2 resultswithin the time period is included. Specimen Narrative Performed At Ventricular Rate 74 BPM GE MUSE Atrial Rate 74 BPM P-R Interval 208 ms QRS Duration 64 ms Q-T Interval 456 ms QTC Calculation(Bazett) 506 ms P [place] 41 degrees R [place] 1 degrees T [place] 31 degrees Normal sinus rhythm Low voltage QRS Prolonged QT Abnormal ECG When compared with ECG of 24-FEB-2020 13 :25, QT has lengthened Confirmed by MD JADA, LOYD ([id number]) on 02/25/2020 12:35:33 PM Procedure Note Interface, External Ris In - 02/25/2020 12:35 PM CDT Ventricular Rate 74 BPM Atrial Rate 74 BPM P-R Interval 208 ms QRS Duration 64 ms Q-T Interval 456 ms QTC Calculation(Bazett) 506 ms P [place] 41 degrees R [place] 1 degrees T [place] 31 degrees Normal sinus rhythm Low voltage QRS Prolonged QT Abnormal ECG When compared with ECG of 24-FEB-2020 13 :25, QT has lengthened Confirmed by MD ELIAS YOCHAI ([id number]) on 02/25/2020 12:35:33 PM Performing Organization Address City/[facility] Phone Number MUSE Troponin I (02/25/2020 4:30 AM CDT)Only the most recent of2 resultswithin the time period is included. Troponin I 0.01 0.00 - 0.03 ng/mL [facility] Specimen Blood Narrative Performed At Troponin I (TnI) levels must be interpreted [facility] in the context of the presenting symptoms and the clinical findings. Elevated TnI levels indicate myocardial damage, but are not specific for ischemic heart disease. Elevated TnI levels are seen in patients with other cardiac conditions (including myocarditis and congestive heart failure), and slight TnI elevations occur in patients with other conditions, including sepsis, renal failure, acidosis, acute neurological disease, and persistent tachyarrhythmia. Document Clerk ID - KAVIN Brown Performing Organization Address [facility] [place] [address] CENTER Lipid panel (02/25/2020 4:30 AM CDT)Only the most recent of2 resultswithin the time period is included. Triglycerides 123 mg/dL [facility] Cholesterol 201 mg/dL [facility] HDL 31 mg/dL [facility] LDL Calculated 145 mg/dL [facility] Specimen Blood Narrative Performed At Triglyceride Reference Range: [facility] Low Risk <150 [id number] High Risk 200-499 Very High Risk>=500 Cholesterol Reference Range: Low Risk <200 [id number] High Risk>240 HDL Cholesterol Reference Range: Low Risk >=60 High Risk <40 LDL Cholesterol Reference Range: Optimal<100 Near [id number] Very High >=190 Document Clerk ID - KAVIN Brown Performing Organization Address City/State/Zipcode Phone Number [facility] [address] [place] [address] [place] Comprehensive metabolic panel (02/25/2020 4:30 AM CDT)Only the most recent of2 resultswithin the time period is included. Protein, Total 6.5 6.0 - 8.3 gm/dL [facility] Albumin 3.7 3.5 - 5.0 g/dL [facility] Alkaline Phosphatase 83 40 - 150 U/L [facility] Total Bilirubin 0.5 0.2 - 1.2 mg/dL [facility] Sodium 132 (L) 136 - 145 meq/L [facility] Potassium 3.5 3.5 - 5.1 meq/L [facility] Chloride 100 98 - 107 meq/L [facility] CO2 17 (L) 22 - 29 meq/L [facility] BUN 16 7 - 21 mg/dL [facility] Creatinine 0.81 0.57 - 1.25 mg/dL [facility] Glucose 119 (H) 70 - 105 mg/dL [facility] Calcium 8.0 (L) 8.4 - 10.2 mg/dL [facility] AST 28 5 - 34 U/L [facility] ALT 25 6 - 55 U/L [facility] EGFR 69Comment: ESTIMATED GFR mL/min/1.73 sq m [facility]IVER[facility]indS [facility] IS NOT ACCURATE [facility] CREATININE CLEARANCE IN PREDICTING GLOMERULAR FILTRATION RATE. ESTIMATED GFR IS NOT APPLICABLE FOR DIALYSIS PATIENTS. Specimen Blood Narrative Performed At Document Clerk ID - KAVIN M [facility] Performing Organization Address City/State/Zipcode Phone Number [address] [address] CENTER ABORH, manual (02/24/2020 5:20 PM CDT) ABO Grouping A [facility] Rh Factor POS [facility] Specimen Blood Performing Organization Address City/State/Zipcode Phone Number [address] [address] Type and screen, automated (02/24/2020 3:45 PM CDT) ABO/RH AUTOMATED (BEAKER) A POSITIVE [facility] Ab Scrn NEGATIVE [facility] Specimen Blood Performing Organization Address [facility] Centercode Phone Number [address] [address] SARS-CoV2/RT-PCR (Asymptomatic ONLY) (02/24/2020 3:44 PM CDT) SARS-COV2/RT-PCR Negative Not Detected, Negative, [facility] See external report for MEDICAL CENTER linked test SARS-COV-2 PERFORMING LAB [facility] CICI [facility] Specimen Other Narrative Performed At Negative result for this test determines that [facility] SARS-CoV-2 RNA was not present in the specimen above the Limit of Detection (LOD).However, Negative results do not preclude SARS-CoV-2 infection and should not be used as the sole basis for treatment or patient management decisions. Negative results must be combined with clinical observations, patient history, and epidemiological information. A false negative result may occur if a specimen is improperly collected, transported or handled.A false negative result should be considered if patient's recent exposures or clinical presentation indicate that COVID-19 (SARS-CoV-2) is likely and diagnostic tests for other causes of illness are negative.Re-testing should be considered in cases of suspected false negatives. The limit of detection for this assay is 800 copies/mL. This SARS CoV-2 test is a real-time RT-PCR test intended for the qualitative detection of nucleic acid from SARS-CoV-2 in a nasopharyngeal swab specimen collected from individuals suspected of COVID-19 by their healthcare provider. This test has not been Food and Drug Administration (FDA) cleared or approved.This is a modified version of an approved Emergency Use Authorization (EUA) and is in the process of review by the FDA. Once authorized by the FDA, the issued EUA will be effective until the declaration that circumstances exist justifying the authorization of the emergency use of in vitro diagnostic tests for detection and/or diagnosis of COVID-19 is terminated under Section 564(b)(2) of the Act or the EUA is revoked under Section 564(g) of the Act. Fact Sheet for Healthcare Providers: https://www.[employer]/sites/default/files/pro duct/documents/Fact_Sheet_HC_Providers_Lyra_SA RS-CoV-2.pdf Fact Sheet for Healthcare Patients: https://www.[employer]/sites/default/files/pro duct/documents/Fact_Sheet_Patients_Lyra_SARS-C oV-2.pdf Performing Laboratory: [address] [place] [address] Performing Organization Address City/State/Zipcode Phone Number [place] [phone] CENTER 2D Echo W/Doppler(CW/PW/Color) (02/24/2020 1:57 PM CDT) Ejection Fraction [facility] ECHO HEAR [facility] Specimen Narrative Performed At Transthoracic Echocardiography Report (T TE) [facility]ART[facility] Demographics Patient Name TREY,Date of Study 02/24/2020 JOSE [id number] GenderFem gertrude Visit Number [id number] RaceUnkn own [id number] m Number [id number] Number Date of Birth1945 Referring Physician Nisa Rodriguez Age74 year(s) Gluer Machine Operator Luis A Humphrey RDCS AnalystLynne Mendez,InterpretingJocarlito March MD [facility] Physician Procedure Type of Study TTE procedure:2DECHO W DOPPLER(CW/PW/COLOR) (Routine) Indications:Suspected cardiac source of emboli. Clinical History Hypertension Pulmonary hypertension Coronary Artery Disease PAD Contrast Medium: Bubble Study. Height: 62 inches Weight: 72.12 kg (159 lbs) BSA: 1.73 m^2 BMI: 29.08 kg/m^2 HR: 70 bpm BP: 184/84 mmHg Summary IV saline contrast injection was negative for a PFO (patent foramen ovale) at rest and post Valsalva . The left ventricle is chamber size (by vol index) is normal (female - LVED vol - 29-61ml/m2). All of the LV segments contract normally . LVEF by Proctor's method of disk assessment is normal (>60%) . Grade 1 diastolic dysfunction (impaired relaxation and low-normal LA pressure). Estimated peak systolic PA pressure is 24 mmHg + RA pressure. (RA pressure indeterminate on this exam) Previous Study No prior studies available for comparis on. Signature Findings Technical Quality: Technically adequate exam. Left Ventricle The left ventricle is chamber size (by vol index) is normal (female - LVED vol - 29-61ml/m2). Mild [place] septal hypertrophy is present. All o f the LV se gments contract normally . Global LV sys tolic fu nction normal . LVEF by Proctor's method of disk as sessment is normal (>60%) . Grade 1 maguire tolic dy sfunction (impaired relaxation and low-n ormal LA pr essure). Left AtriumLA size is normal (16-34 ml/m2) . Right VentricleThe right ventricle is not well visualized. Right Atrium RA size is normal. Atrial SeptumIV saline contrast injection was negative for a PF O (p atent foramen ovale) at rest and post Va lsalva . Aortic Valve Mild AoV cusp thickening. No evidence of aortic regurgitation. Mitral Valve Mild mitral annular calcification. Tr suyapa mitral regurgitation. Tricuspid ValveTV structure is normal. Mi ld tricuspid regurgitation. Es timated peak systolic PA pressure is 24 mmHg + RA pr essure. (RA pressure indeterminate on th is exam) Pulmonic Valve Normal PV structure and function by limited views an d Doppler. AortaAortic root size (SInus of Valsalva diameter) i s no rmal . PericardiumNo pericardial effusion is visualized. IVC/SVC/PA/PV/PleuralThe inferior vena cava is not well visualized. Chambers/Structures Left Atrium LA Volume: 58.89 ml LA Area: 19.36 cm^2 LA Vol. Index: 34 ml/m^2 Left Ventricle LVIDd: 3.95 cm LV Septum Diastolic: 1.27 cm LV PW Diastolic: 0.6 cm LVEDV Proctor's:55.68 ml LVESV Proctor's:18.09 ml LVEF Proctor's: 67.5 %LVEDV I: 32 ml/m^2 LVESVI: 10 ml/m^2 LVOT Diameter: 1.8 cm Aorta Ao Root S of Shruti.: 2.54 cm Doppler/Quantitative Measurements Mitral Valve MV Peak E-Wave: 0.84 m/sMV Peak A-Wave: 1.08 m/s E/A Ratio: 0. 78 Peak Gradient : 2.8 mmHg Deceleration Time: 160.8 msec MV Tab. Peak: Tissue Doppler E' Lateral Velocity: 0.07 m/s E/E': 12.54 Aortic Valve Peak Velocity: 1.09 m/sMean Velocity: 0.76 m/s Peak Gradient: 4.79 mmHg Mean Gradient: 2.59 mmHg AV Area (continuity): 1.74 cm^2 AV VTI: 27.14 cm AV DVI: 0.68 LVOT Peak Velocity: 0.88 m/s Peak Gradient: 3.09 mmHg Mean Velocity: 0.53 m/s Mean Gradient: 1.36 mmHg LVOT Diameter: 1.8 cm LVOT VTI: 18.59 cm LVOT Area: 2.54 cm^2LVOT SV:47.28 ml LVOT CO: 3.31 l/min LVOT CI: 1.91 l/min/m^2 RVOT RVOT VTI (PW): 13.28 cm Tricuspid Valve TR Velocity: 2.48 m/s TR Gradient: 24.7 mmHg Procedure Note Interface, External Ris In - 02/25/2020 10:28 AM CDT Transthoracic Echocardiography Report (TTE) Demographics Patient Name TREY, Date of Study 02/24/2020 JOSE Gender Female Visit Number [id number] Race Unknown [place] [id number] Number Date of 1945 Referri Physician Nisa Rodriguez Age 74 year(s) Sonogra pher Luis A Humphrey RDCS Timber Packer Sary Simms, Interpr eting Shola March MD RDCS Physici an Procedure Type of Study TTE procedure:2DECHO W DOPPLE R(CW/PW/COLOR) (Routine) Indications:Suspected cardiac source of emboli. Clinical History Hypertension Pulmonary hypertension Coronary Artery Disease PAD Contrast Medium: Bubble Study. Height: 62 inches Weight: 72.12 kg (159 lbs) BSA: 1.73 m^2 BMI: 29.08 kg/m^2 HR: 70 bpm BP: 184/84 mmHg Summary IV saline contrast injection was negati ve for a PFO (patent foramen ovale) at rest and post Valsalva . The left ventricle is chamber size (by vol index) is normal (female - LVED vol - 29-61ml/m2). All of the LV segmen ts contract normally . LVEF by Proctor's method of disk assessment is normal (>60%) . Grade 1 diastolic dysfunction (impaired relaxation and low-normal LA pressure). Estimated peak systolic PA pressure is 24 mmHg + RA pressure. (RA pressure indeterminate on this exam) Previous Study No prior studies available for comparis on. Signature Findings Technical Quality: Technically adequate exam. Left Ventricle The left ventric le is chamber size (by vol index) is normal (femal e - LVED vol - 29-61ml/m2). Mild basal septal hyp ertrophy is present. All of the LV segments contrac t normally . Global LV systolic function normal . LVEF by Proctor's method of disk assessment is no rmal (>60%) . Grade 1 diastolic dysfunction (imp aired relaxation and low-normal LA pressure). Left Atrium LA size is mayi l (16-34 ml/m2) . Right Ventricle The right ventri tim is not well visualized. Right Atrium RA size is mayi l. Atrial Septum IV saline contra st injection was negative for a PFO (patent foramen ovale) at rest and post Valsalva . Aortic Valve Mild AoV cusp th ickening. No evidence of a ortic regurgitation. Mitral Valve Mild mitral han lar calcification. Trace mitral reg urgitation. Tricuspid Valve TV structure is normal. Mild tricuspid r egurgitation. Estimated peak s ystolic PA pressure is 24 mmHg + RA pressure. (RA pr essure indeterminate on this exam) Pulmonic Valve Normal PV struct ure and function by limited views and Doppler. Aorta Aortic root size (SInus of Valsalva diameter) is normal . Pericardium No pericardial e ffusion is visualized. IVC/SVC/PA/PV/Pleural The inferior zully a cava is not well visualized. Chambers/Structures Left Atrium LA Volume: 58.89 ml LA Area: 19.36 cm^2 LA Vol. Index: 34 ml/m^2 Left Ventricle LVIDd: 3.95 cm LV Septum Diastolic: 1.27 cm LV PW Diastolic: 0.6 cm LVEDV Proctor's:55.68 ml LVESV Proctor's:18.09 ml LVEF Proctor's: 67.5 % LVEDVI: 32 ml/m^2 LVESVI: 10 ml/m^2 LVOT Diameter: 1.8 cm Aorta Ao Root S of Shruti.: 2.54 cm Doppler/Quantitative Measurements Mitral Valve MV Peak E-Wave: 0.84 m/s M V Peak A-Wave: 1.08 m/s E /A Ratio: 0.78 P eak Gradient: 2.8 mmHg D eceleration Time: 160.8 msec MV Tab. Peak: Tissue Doppler E' Lateral Velocity: 0.07 m/s E /E': 12.54 Aortic Valve Peak Velocity: 1.09 m/s Mean Velocity: 0.76 m/s Peak Gradient: 4.79 mmHg Mean Gradient: 2.59 mmHg AV Area (continuity): 1.74 cm^2 AV VTI: 27.14 cm AV DVI: 0.68 LVOT Peak Velocity: 0.88 m/s Pea k Gradient: 3.09 mmHg Mean Velocity: 0.53 m/s Leigh Ann n Gradient: 1.36 mmHg LVOT Diameter: 1.8 cm LVO T VTI: 18.59 cm LVOT Area: 2.54 cm^2 LVO T SV:47.28 ml LVOT CO: 3.31 l/min LVO T CI: 1.91 l/min/m^2 RVOT RVOT VTI (PW): 13.28 cm Tricuspid Valve TR Velocity: 2.48 m/s TR Gradient: 24.7 mmHg Performing Organization Address City/State/Zipcode Phone Number [facility] PT/aPTT (02/24/2020 1:46 PM CDT) Protime 13.5 11.9 - 14.2 seconds [facility] INR 1.06 <=5.90 [facility] PTT 29.1 22.5 - 36.0 seconds [facility] Specimen Blood Narrative Performed At Effective 11/29/2018: PT Reference Range [facility] Change New: 11.9-14.2Previous: 11.7-14.7 RECOMMENDED COUMADIN/WARFARIN INR THERAPY RANGES STANDARD DOSE: 2.0-3.0Includes: PROPHYLAXIS for venous thrombosis, systemic embolization; TREATMENT for venous thrombosis and/or pulmonary embolus. HIGH RISK: Target INR is 2.5-3.5 for patients wiht mechanical heart valves. Performing Organization Address City/State/Zipcode Phone Number [address] [address] [place] Vitamin B12 and Folate (02/24/2020 1:45 PM CDT) Vitamin B12 561 213 - 816 pg/mL [facility] Folate 10.10 >=7.00 ng/mL [facility] Specimen Blood Narrative Performed At Document Clerk [facility] Performing Organization Address City/[facility]/Zipcode Phone Number [address] [address] [place] TSH/Free T4 If Indicated (02/24/2020 1:45 PM CDT) TSH 3.677 0.350 - 4.940 uIU/mL [facility] Specimen Blood Narrative Performed At Document Clerk [place] [facility] Performing Organization Address City/State/Zipcode Phone Number [address] [address] [place] Hemoglobin A1c (02/24/2020 1:44 PM CDT) Hemoglobin A1C 6.2 (H) 4.3 - 6.1 % [facility] Specimen Blood Performing Organization Address City/State/Zipcode Phone Number [address] [address] CENTER after 03/03/2019 Insurance Payer Benefit Plan / Subscriber ID Type Phone Address Group AETNA - AETNA MEDICARE xxxxxxxx [facility] Contracted [phone] [address] MEDICARE MGD HMO POS [id number] [place] [address] TH (Home) [place] [address] Advance Directives For more information, please contact:[place] [address] [address] [place], [place] [phone] Code Status Date Activated Date Inactivated Comments Full Code 03/01/2020 7:54 PM This code status was determined by: Patient Full Code 02/26/2020 11:20 AM 02/26/2020 12:07 PM This code status was determined by: Patient Full Code 02/25/2020 5:34 PM 02/26/2020 11:20 AM This code status was determined by: Patient Full Code 02/24/2020 2:03 PM 02/25/2020 5:23 PM This code status was determined by: Patient
--- OUTSIDE RECORDS SUMMARY | 2020-03-03 19:09 | XMS REPORT | Summary of Care ---
:1945 Author Organization [facility] Address [address] [place] [address] Care Team Providers Name Role Phone MD Cornelio Primary Care Provider Reason for Visit Reason Comments Talk To Nurse Encounter Details Date Type Department Care Team Description 09/17/2019 Telephone [facility] Cardiology- Kaylin Venegas MD Talk To Nurse [place] [address] [facility] [address] [facility], [address] [place] [address] [place] [address] [phone] Allergies Active Allergy Reactions Severity Noted Date Comments Brimonidine Other - See comments 07/16/2019 Papilla ry reaction, conjunctival irritation Rosuvastatin Calcium Anaphylaxis 01/24/2015 Neuromuscular Blockers, Unknown - See 07/13/2013 Giv es pt glaucoma, Steroidal comments all steroid typ e medications Penicillins Swelling 07/13/2013 Qiwdgeo-Nti-Alo Rash 05/02/2015 Reductase Inhibitors Sulfa (Sulfonamide Unknown - See 07/13/2013 Had reac tion as a Antibiotics) comments child Ezetimibe Unknown - See 04/18/2018 comments documented as of this encounter (statuses as of 02/26/2020) Medications Medication Sig Dispensed Refills Start End Status Date Date aspirin 81 mg Take 81 mg by 0 Ac tive tabletIndications: mouth daily. Coronary atherosclerosis of unspecified type of vessel, lower [place] or graft, Other acute and subacute form of ischemic heart disease, Traumatic amputation of toe(s) (complete) (partial), without mention of complication, S/P appendectomy VITAMIN E, Take 100 Units by 0 A ctive DL,TOCOPHERYL ACET, mouth. (VITAMIN E, DL, ACETATE,) 400 unit Cap fluticasone 50 Use 1 [place] in 3 Bottle 3 05/04/20 Active mcg/actuation nasal each nostril 18 sprayIndications: daily. Seasonal allergic rhinitis, unspecified trigger oxymetazoline (AFRIN Use 1 [place] in 0 Active SINUS, OXYMETAZOLINE,) each nostril [...] [address] Place in right 3.5 g 1 09/03/1909/16/ unit/gram ophthalmic eye 3 (three) 2019 ointmentIndications: times daily for Herpes zoster 14 days. keratitis of right eye documented as of this encounter (statuses as of 02/26/2020) Active Problems Problem Noted Date Hyperlipidemia, unspecified [...] as of this encounter (statuses as of 02/26/2020) Immunizations Name Administration Dates Next Due Influenza High Dose 03/04/2019, 04/10/2018, 05/12/2016 Pneumococcal Polysaccharide, PPSV23 04/23/2019 (Deferred: Va ccine (PNEUMOVAX) Unavailable) TDAP 04/23/2019 documented as of this encounter Social History Tobacco Use Types Packs/Day Years Used Date Former Smoker Cigarettes Quit: 07/14/19 12 Smokeless Tobacco: Never Used Alcohol Use Drinks/Week oz/Week Comments Yes 1 Glasses of wine 1.0 occ 0 Standard drinks or equivalent Sex Assigned at Date Recorded Not on file documented as of this encounter Last Filed Vital Signs Not on filedocumented in this encounter Miscellaneous Notes Telephone Encounter - Gilmer Mcpherson MD - 09/18/2019 10:44 PM CDTShe had tried Statins and Zetia in the past and had reported side effects. She is on pradulent now. We can try Repatha 140 mg SC [id number] but i am not sure if we had initially recommended and was changed to pradulent to insurance reasons or cost reasons. Telephone Encounter - Luisana De Guzman RN - 09/17/2019 4:45 PM CDTShenia with PASS program confirmed they received the prior authorization. Letter sent to patient requesting proof of income (i.e. Award letter from , tax return, Bank statement). Spoke to patient, she was extremely frustrated stating that she has already provided her financial documents. She was so frustrated in fact that she no longer wants to press this issue and wants to be prescribed a different medication. Advised will discuss with Dr. Mcpherson. elephone Encounter - Luisana De Guzman RN - 09/17/2019 3:44 PM CDTSpoke to Alex, states they did not receive fax that we got confirmation from on 08.27.2019. Asked toresend to fax number [phone] with fax cover sheet stating "POI Documents" Patient has not been on any cholesterol meds for 3 months-advised to not get blood work drawn as previously directed per her request-she knows that it is not going to show any improvement because she has not been able to get the Praluent yet. Telephone Encounter - Kee Day - 09/17/2019 8:28 AM CDTPatient stated that she has not heard from pass and would like Luisana to give her a call. documented in this encounter Plan of Treatment Date Type Specialty Care Team Description 06/20/2020 Office Visit Cardiology Gilmer Mcpherson MD [address] [place] [address] [place] [phone] Health Maintenance Due Date Last Done Comments Breast Cancer Screening 1984 (MAMMOGRAM) COLON CANCER SCREENING ANNUAL 1994 FIT/FOBT COLON CANCER SCREENING FIT 1994 DNA EVERY 3 YEARS COLON CANCER SCREENING 1994 SIGMOIDOSCOPY EVERY 5 YEARS Zoster Recombinant Vaccine 1994 (SHINGRIX) (1 of 2) LUNG CANCER SCREEN: 1999 Recommended for age 55-80 with 30 + pack year history INFLUENZA VACCINE (#1) 2020 03/04/2019, 04/10/2018, 05/12/2016 Medicare Wellness Visit 04/26/2020 01/20/2018 Postpone d from 01/20/2019 (Refused) Depression Screening 07/17/2020 07/17/2019 COLONOSCOPY 09/08/2026 09/08/2016 (Declined) Colorectal Cancer Screening 09/08/2026 DTaP,Tdap,and Td Vaccines (2 04/23/2029 04/23/2019 - Td) Osteoporosis Screening 05/01/2029 05/01/2019 PNEUMOCOCCAL VACCINES 65+ Addressed 09/08/2016 Overri dden with the (Declined) intention of not completing the t opic documented as of this encounter Results Not on filedocumented in this encounter Insurance Payer Benefit Plan Subscriber ID Effective Phone Address Typ e / Group Dates AETNA - AETNA [id number] 2013-Prese [address] Medic are Adv [place] nt [id number] O [place] [address] documented as of this encounter
--- OUTSIDE RECORDS SUMMARY | 2020-03-03 19:09 | XMS REPORT | Continuity of Care Document ---
:[address] [facility] t Address [address] [place] [address] Care Team Providers Name Role Phone Heriberto BRIGGS Attending Clinician Gayle BRIGGS Attending Clinician Almas Curtis MD Attending Clinician Brigido Schilling MD Attending Clinician Candice Attending Clinician Unavailable HERIBERTO Attending Clinician Unavailable Theo BRIGGS Attending Clinician GAYLE Admitting Clinician Unavailable Payers Payer Name Policy Type Policy Number Effective Date Expiration Date S mechelle AETNA - MEDICARE MGD [id number] [facility] CAREA[facility] Pat rust [id number] [facility] [id number] [address] Problems Condition Condition Condition Status Onset Resolution Last Treating Co mments Source Name Details Category Date Date Treatment Clinician Date CAD CAD Disease Active [facility]coronary 02-26 [facility] - artery artery 00:00: Medical disease) disease) 00 Center History of History of Disease Active 2019- [facility] PR PR 02-26 [facility] (myocardia (myocardia 00:00: Me dical l l 00 Center infarction infarction ) ) History of History of Disease Active 2019-[address] coronary coronary 02-26 [facility] - artery artery 00:00: Medical stent stent 00 Center placement placement Essential Essential Disease Active [facility] hypertensi hypertensi 02-26 Roseline kes - on on 00:00: Medical 00 Center Thoracic Thoracic Disease Active Overview: [facility] aortic aortic 02-26 [facility] - atheroscle atheroscle 00:00: 02/26/20: Medical rosis rosis 00 with Center severe atheroscl erosis of ascending and descendin g thoracic aortaGrad e 3 plaque (atheroma < 5mm) in the ascending aorta and aortic arch.Grad e 4 [place] plaque (atheroma > 5mm) diffusely throughou t the descendin g thoracic aorta . CVA CVA Disease Active Overview: [facility] (cerebral (cerebral 02-26 [place] - vascular vascular 00:00: 02/25/20: Medi shama accident) accident) 00 Right Cent er [place]-o ccipital stroke Left Left Disease Active Overview: [facility] hemiparesi hemiparesi 02-26 2/2 right [facility] - s s 00:00: sided Medical 00 stroke Center Prediabete Prediabete Disease Active [facility] s s [facility] Allergies, Adverse Reactions, Alerts Allergy Allergy Status Severity Reaction(s) Onset Inactive Treating Comm ents Source Name Type Date Date Clinician Corticos Propensi Active Other (See "it [facility] teroids ty to Comments) 02-23 caused me Alex es - (Glucoco adverse 00:00: to have Medica l rticoids reaction 00 glaucoma" Fady ter ) s Penicill Drug Active Rash [facility] ins Allergy 02-23 [facility] - 00:00: Medical 00 Center Sulfa Drug Active Rash [facility] (Sulfona Allergy 02-23 [facility] - mide 00:00: Medical Antibiot 00 Center ics) Social History Social Habit Start Date Stop Date Quantity Comments Source History SDOH Alcohol [facility] - Std Drinks [facility] History SDOH Alcohol [facility] - Binge [facility] Sex Assigned At [facility] History SDOH Alcohol 2020-02-24 2020-02-[address] [facility] - Frequency 00:00:00 00:00:00 Medical [place] Smoking Status Start Date Stop Date Source Former smoker 2020-02-27 00:00:00 2020-02-27 00:00:00 [facility] Medications Ordered Filled Start Stop Current Ordering Indication Dosage Frequency Signature Comments Components Source Medication Medication Date Date Medication? Clinician (SIG) Name Name apixaban 2019- Yes 5mg Q.5D Take [address] [address] (ELIQUIS) 5 - tablet (5 Alex es - mg Tab 00:00: mg total) Medica l tablet 00 by mouth 2 Center (two) times daily. atorvastati 2019-2020- Yes 80mg QD Take [address] [facility] n (LIPITOR) 03-03 tablet (80 L ukes - 80 MG 00:00: 23:59 mg total) Medica l tablet 00 :00 by mouth Center nightly. latanoprost 2019-2020- Yes 1[drp] QD Place [address] [facility] (XALATAN) 03-03 drop into Luke [facility] - 0.005 % 00:00: 23:59 both eyes Medi shama ophthalmic 00 :00 nightly. Cente r solution losartan 2019-2020- Yes 50mg QD Take [address] (COZAAR) 50 03-03 tablet (50 L ukes - MG tablet 00:00: 23:59 mg total) Me dical 00 :00 by mouth Center daily. polyethylen 2019-0 2020- Yes 17g Q.5D Take [address] e glycol 03-0303 by mouth 2 [facility] - (GLYCOLAX) 00:00: 23:59 (two) Medic al 17 gram 00 :00 times Center packet daily for 3 days. hydroCHLORO 2020-0 Yes 25mg QD Take [address] thiazide 8- by mouth [facility] - (HYDRODIURI 12:50: daily. Medi shama L) 25 MG 15 Center tablet cholecalcif 2020-0 Yes prevention 1000U QD Take 1,[address] lenore 8- of vitamin Units by [facility] - (VITAMIN 12:50: D mouth Medical D3) 10 mcg 15 deficiency daily. C enter (400 unit) Tab tablet aspirin 81 2019-0 Yes myocardial 81mg QD Take [address] MG EC 8 reinfarctio by mouth Alex es - tablet 12:50: n daily. Medical 15 prevention Center metoprolol 2020-0 Yes high blood 25mg Q.5D Take [address] tartrate 8 pressure by mouth 2 L ukes - (LOPRESSOR) 12:47: (two) Medic al 25 MG 21 times Center tablet daily. Vital Signs Vital Name Observation Time Observation Value Comments Source Respiratory rate 2020-03-03 15:17:00 16 /min [facility] Systolic blood 2020-03-03 12:02:00 116 mm[Hg] [facility] Diastolic blood 2020-03-03 12:02:00 56 mm[Hg] [facility] Heart rate 2020-03-03 12:02:00 62 /min [facility] Oxygen saturation in 2020-03-03 12:02:00 95 /min [facility] Arterial blood by Medical Ce nter Pulse oximetry Body temperature 2020-03-03 08:20:00 36.17 Naomie [facility] Body height 2020-02-24 12:10:00 157.5 cm [facility] Body weight Measured 2020-02-24 12:10:00 72.5 kg [facility] BMI 2020-02-24 12:10:00 29.23 kg/m2 [facility] Procedures Procedure Date / Time Performing Clinician Source Performed MAGNESIUM 2020-03-03 04:41:00 Basilio Curtis [facility] BASIC METABOLIC PANEL (7) 2020-03-03 04:41:[address] [facility] CBC W/PLT COUNT & AUTO 2020-03-03 04:41:00 Basilio Curtis [facility] BASIC METABOLIC PANEL (7) 2020-03-02 11:08:00 Ever Basilio Gr [facility] BASIC METABOLIC PANEL (7) 2020-02-29 05:48:00 Basilio Curtis [facility] CBC W/PLT COUNT & AUTO 2020-02-29 05:48:00 Basiloi Curtis [facility] OSMOLALITY, URINE 2020-02-28 11:12:00 Basilio Curtis [facility] SODIUM, RANDOM URINE 2020-02-28 11:12:00 Basilio Curtis [facility] OSMOLALITY, SERUM 2020-02-28 10:10:00 Basilio Curtis [facility] BASIC METABOLIC PANEL (7) 2020-02-28 04:54:00 Basilio Curtis [facility] CBC W/PLT COUNT & AUTO 2020-02-28 04:54:00 Basilio Curtis [facility] POCT-GLUCOSE METER 2020-02-27 10:18:00 Basilio Curtis [facility] CT/CTA CAROTID 2020-02-27 09:35:00 Nereyda Crawford [facility] BASIC METABOLIC PANEL (7) 2020-02-27 08:46:00 Basilio Curtis [facility] CBC W/PLT COUNT & AUTO 2020-02-27 08:46:00 Basilio Curtis [facility] COLOR-FLOW MAPPING 2020-02-26 11:20:41 Timothy Justin [facility] CONT WAVE PULSED DOPPLER 2020-02-26 11:20:41 Timothy Justin [facility] TRANSESOPHAGEAL ECHO 2020-02-26 11:09:52 Basilio Curtis [facility] COLOR-FLOW MAPPING 2020-02-26 08:44:57 Basilio Curtis [facility] CONT WAVE PULSED DOPPLER 2020-02-26 08:44:57 Basilio Curtis [facility] TRANSFUSION SERVICE REPORT 2020-02-25 18:00:49 Provider, Shahana [facility] - - SCAN Scanning [facility] [place] CEREBRAL 4 VESSEL 2020-02-25 15:41:00 Steven Nielsen [facility] - ANGIOGRAM [facility] MR BRAIN WITHOUT IV 2020-02-25 13:47:00 Steven Nielsen [facility] L ukes - CONTRAST [facility] XR CHEST 1 VIEW 2020-02-25 11:48:00 Kaz Child [facility] - PORTABLE/BEDSIDE Medical Center ECG 12-LEAD 2020-02-25 08:28:13 Basilio Curtis [facility] COMPREHENSIVE METABOLIC 2020-02-25 04:30:00 Nisa Rodriguez [facility] LIPID PANEL 2020-02-25 04:30:00 GayleNisa [facility] TROPONIN I 2020-02-25 04:30:00 Basilio Curtis [facility] CBC W/PLT COUNT & AUTO 2020-02-25 04:30:00 Gayle [facility] ABORH, MANUAL 2020-02-24 17:20:00 Edilma Burton [facility] TYPE AND SCREEN, AUTOMATED 2020-02-24 15:45:00 Steven Nielsen [facility] SARS-COV2/RT-PCR ([facility] & 2020-02-24 15:44:00 Morales [facility] - REF LABS) [facility] 2D ECHO W/ DOPPLER 2020-02-24 13:57:[address] [facility] (CW/PW/COLOR) [facility] PT/APTT 2020-02-24 13:46:[address] [facility] TROPONIN I 2020-02-24 13:45:00 [facility] COMPREHENSIVE METABOLIC 2020-02-24 13:45:00 [facility] Nereyda [facility] TSH/FREE T4 IF INDICATED 2020-02-24 13:45:00 [facility] LIPID PANEL 2020-02-24 13:45:00 [facility] VITAMIN B12 AND FOLATE 2020-02-24 13:45:[address] [facility] HEMOGLOBIN A1C 2020-02-24 13:44:00 [facility] CBC W/PLT COUNT & AUTO 2020-02-24 13:44:00 [facility] ECG 12-LEAD 2020-02-24 13:25:04 [facility] Plan of Care Planned Activity Planned Date Details Comments Source Encounters Start End Encounter Admission Attending Care Care Encounter Source Date/Time Date/Time Type Type Clinicians Facility Department ID 2019-09-17 2019-09-17 Telephone [facility] [id number] 00:00:00 00:00:00 Sloane Burkett [id number] [place] [id number] [place] [id number] [facility] 059 Building Results Test Description Test Time Test Comments Results Result Comments Source CBC with platelet count + automated diff 2020-03-03 06:21:00 Test Item Value Reference Range Interpretation Comme nts WBC (test code = 6690-2) 6.9 3.5- 10.5 K/L RBC (test code = 789-8) 5.45 3.93- 5.22 M/L H MCHC (test code = 786-4) 32.7 32.2- 35.5 GM/DL Hematocrit (test code = 4544-3) 45.2 % 34.1-44.9 H MCV (test code = 787-2) 82.9 fL 79.4-94.8 MCH (test code = 785-6) 27.2 pg 25.6-32.2 RDW (test code = 788-0) 15.9 % 11.7-14.4 H Platelets (test code = 777-3) 150 150- 450 K/CU MM MPV (test code = 81391-6) 11.7 fL 9.4-12.3 nRBC (test code = 413) 0 0- 0 /100 WBC % Neutros (test code = 429) 68 % % Lymphs (test code = 430) 12 % % Monos (test code = 431) 9 % % Eos (test code = 432) 11 % % Baso (test code = 437) 0 % # Neutros (test code = 670) 4.64 1.56- 6.13 K/L # Lymphs (test code = 414) 0.80 1.18- 3.74 K/L L # Monos (test code = 415) 0.63 0.24- 0.36 K/L H # Eos (test code = 416) 0.74 0.04- 0.36 K/L H # Baso (test code = 417) 0.03 0.01- 0.08 K/L Immature Granulocytes-Relative (test code = 2801) 0 % 0-1 Lab Interpretation (test code = 22746-3) Abnormal [facility] W/PLT COUNT & AUTO [id number] 06:21:00 Test Item Value Reference Range Interpretation Comments WHITE BLOOD CELL COUNT (BEAKER) 6.9 K/ L 3.5-10.5 (test code = 775) RED BLOOD CELL COUNT (BEAKER) 5.45 M/ L 3.93-5.22 H (test code = 761) HEMOGLOBIN (BEAKER) (test code = 14.8 GM/DL 11.2-15.7 410) HEMATOCRIT (BEAKER) (test code = 45.2 % 34.1-44.9 H 411) MEAN CORPUSCULAR VOLUME (BEAKER) 82.9 fL 79.4-94.8 (test code = 753) MEAN CORPUSCULAR HEMOGLOBIN 27.2 pg 25.6-32.2 (BEAKER) (test code = 751) MEAN CORPUSCULAR HEMOGLOBIN CONC 32.7 GM/DL 32.2-35.5 (BEAKER) (test code = 752) RED CELL DISTRIBUTION WIDTH 15.9 % 11.7-14.4 H (BEAKER) (test code = 412) PLATELET COUNT (BEAKER) (test 150 K/CU MM 150-450 code = 756) MEAN PLATELET VOLUME (BEAKER) 11.7 fL 9.4-12.3 (test code = 754) NUCLEATED RED BLOOD CELLS 0 /100 WBC 0-0 (BEAKER) (test code = 413) NEUTROPHILS RELATIVE PERCENT 68 % (BEAKER) (test code = 429) LYMPHOCYTES RELATIVE PERCENT 12 % (BEAKER) (test code = 430) MONOCYTES RELATIVE PERCENT 9 % (BEAKER) (test code = 431) EOSINOPHILS RELATIVE PERCENT 11 % (BEAKER) (test code = 432) BASOPHILS RELATIVE PERCENT 0 % (BEAKER) (test code = 437) NEUTROPHILS ABSOLUTE COUNT 4.64 K/ L 1.56-6.13 (BEAKER) (test code = 670) LYMPHOCYTES ABSOLUTE COUNT 0.80 K/ L 1.18-3.74 L (BEAKER) (test code = 414) MONOCYTES ABSOLUTE COUNT (BEAKER) 0.63 K/ L 0.24-0.36 H (test code = 415) EOSINOPHILS ABSOLUTE COUNT 0.74 K/ L 0.04-0.36 H (BEAKER) (test code = 416) BASOPHILS ABSOLUTE COUNT (BEAKER) 0.03 K/ L 0.01-0.08 (test code = 417) IMMATURE GRANULOCYTES-RELATIVE 0 % 0-1 PERCENT (BEAKER) (test code = 2801) Basic Metabolic [id number] 06:09:00 Test Item Value Reference Range Interpretation Comments Sodium (test code = 132 meq/L 136-145 L 2951-2) Potassium (test code 3.9 meq/L 3.5-5.1 = 2823-3) Chloride (test code = 96 meq/L 98-107 L 2075-0) CO2 (test code = 27 meq/L 22-29 2028-9) BUN (test code = 13 mg/dL 7-21 3094-0) Creatinine (test code 0.76 mg/dL 0.57-1.25 = 2160-0) Glucose (test code = 96 mg/dL 70-105 2345-7) Calcium (test code = 8.7 mg/dL 8.4-10.2 08505-2) EGFR (test code = 74 mL/min/1.73 sq m [facility] [address]-6) NOT ACCURATE CREATININE CLEARANCE IN PREDICTING GLOMERULAR FILTRATION RATE . ESTIMATED GFR I S NOT APPLICABLE FOR DIALYSIS PATIENTS. PITER (test code = PITER) Retail Shift Leader ID - SANIYA LSpecimen slightly icteric Lab Interpretation Abnormal (test code = 05936-4) [facility]2020-08-31 06:09:00 Test Item Value Reference Range Interpretation Comments Magnesium (test code = 2.3 mg/dL 1.6-2.6 90985-3) PITER (test code = PITER) Retail Shift Leader ID - SANIYA L Lab Interpretation (test Normal code = 02545-3) [facility]:09[facility]00 Test Item Value Reference Range Interpretation Comments MAGNESIUM (BEAKER) (test code = 2.3 mg/dL 1.6-2.6 627) Retail Shift Leader ID - SANIYA LBASIC METABOLIC [id number] 06:09:00 Test Item Value Reference Range Interpretation Comments SODIUM (BEAKER) 132 meq/L 136-145 L (test code = 381) POTASSIUM (BEAKER) 3.9 meq/L 3.5-5.1 (test code = 379) CHLORIDE (BEAKER) 96 meq/L 98-107 L (test code = 382) CO2 (BEAKER) (test 27 meq/L 22-29 code = 355) BLOOD UREA NITROGEN 13 mg/dL 7-21 (BEAKER) (test code = 354) CREATININE (BEAKER) 0.76 mg/dL 0.57-1.25 (test code = 358) GLUCOSE RANDOM 96 mg/dL 70-105 (BEAKER) (test code = 652) CALCIUM (BEAKER) 8.7 mg/dL 8.4-10.2 (test code = 697) EGFR (BEAKER) (test 74 mL/min/1.73 ESTIMA DREW GFR IS code = 1092) sq m NOT ACCURATE CREATININE CLEARANCE IN PREDICTING GLOMERULAR FILTRATION RATE . ESTIMATED GFR I S NOT APPLICABLE FOR DIALYSIS PATIEN TS. Retail Shift Leader ID - SANIYA LSpecimen slightly ictericBASIC METABOLIC [id number] 11:34:00 Test Item Value Reference Range Interpretation Comments SODIUM (BEAKER) 126 meq/L 136-145 L (test code = 381) POTASSIUM (BEAKER) 3.3 meq/L 3.5-5.1 L Specimen slightly (test code = 379) hemolyzed CHLORIDE (BEAKER) 92 meq/L 98-107 L (test code = 382) CO2 (BEAKER) (test 25 meq/L 22-29 code = 355) BLOOD UREA NITROGEN 16 mg/dL 7-21 (BEAKER) (test code = 354) CREATININE (BEAKER) 0.80 mg/dL 0.57-1.25 Specimen slightly (test code = 358) hemolyzed GLUCOSE RANDOM 137 mg/dL 70-105 H (BEAKER) (test code = 652) CALCIUM (BEAKER) 8.6 mg/dL 8.4-10.2 (test code = 697) EGFR (BEAKER) (test 70 mL/min/1.73 ESTIMA DREW GFR IS code = 1092) sq m NOT ACCURATE CREATININE CLEARANCE IN PREDICTING GLOMERULAR FILTRATION RATE . ESTIMATED GFR I S NOT APPLICABLE FOR DIALYSIS PATIEN TS. Retail Shift Leader ID - QUINCY CSpecimen slightly ictericBASIC METABOLIC [id number] 07:08:00 Test Item Value Reference Range Interpretation Comments SODIUM (BEAKER) 130 meq/L 136-145 L (test code = 381) POTASSIUM (BEAKER) 3.4 meq/L 3.5-5.1 L (test code = 379) CHLORIDE (BEAKER) 90 meq/L 98-107 L (test code = 382) CO2 (BEAKER) (test 27 meq/L 22-29 code = 355) BLOOD UREA NITROGEN 12 mg/dL 7-21 (BEAKER) (test code = 354) CREATININE (BEAKER) 0.86 mg/dL 0.57-1.25 (test code = 358) GLUCOSE RANDOM 76 mg/dL 70-105 (BEAKER) (test code = 652) CALCIUM (BEAKER) 8.7 mg/dL 8.4-10.2 (test code = 697) EGFR (BEAKER) (test 64 mL/min/1.73 ESTIMA DREW GFR IS code = 1092) sq m NOT ACCURATE CREATININE CLEARANCE IN PREDICTING GLOMERULAR FILTRATION RATE . ESTIMATED GFR I S NOT APPLICABLE FOR DIALYSIS PATIEN TS. Retail Shift Leader ID - JUL CSpecimen slightly ictericCBC W/PLT COUNT & AUTO [id number] 06:56:00 Test Item Value Reference Range Interpretation Comments WHITE BLOOD CELL COUNT (BEAKER) 5.3 K/ L 3.5-10.5 (test code = 775) RED BLOOD CELL COUNT (BEAKER) 5.70 M/ L 3.93-5.22 H (test code = 761) HEMOGLOBIN (BEAKER) (test code = 15.4 GM/DL 11.2-15.7 410) HEMATOCRIT (BEAKER) (test code = 47.4 % 34.1-44.9 H 411) MEAN CORPUSCULAR VOLUME (BEAKER) 83.2 fL 79.4-94.8 (test code = 753) MEAN CORPUSCULAR HEMOGLOBIN 27.0 pg 25.6-32.2 (BEAKER) (test code = 751) MEAN CORPUSCULAR HEMOGLOBIN CONC 32.5 GM/DL 32.2-35.5 (BEAKER) (test code = 752) RED CELL DISTRIBUTION WIDTH 15.3 % 11.7-14.4 H (BEAKER) (test code = 412) PLATELET COUNT (BEAKER) (test 148 K/CU MM 150-450 L code = 756) MEAN PLATELET VOLUME (BEAKER) 11.4 fL 9.4-12.3 (test code = 754) NUCLEATED RED BLOOD CELLS 0 /100 WBC 0-0 (BEAKER) (test code = 413) NEUTROPHILS RELATIVE PERCENT 77 % (BEAKER) (test code = 429) LYMPHOCYTES RELATIVE PERCENT 9 % (BEAKER) (test code = 430) MONOCYTES RELATIVE PERCENT 6 % (BEAKER) (test code = 431) EOSINOPHILS RELATIVE PERCENT 7 % (BEAKER) (test code = 432) BASOPHILS RELATIVE PERCENT 0 % (BEAKER) (test code = 437) NEUTROPHILS ABSOLUTE COUNT 4.04 K/ L 1.56-6.13 (BEAKER) (test code = 670) LYMPHOCYTES ABSOLUTE COUNT 0.48 K/ L 1.18-3.74 L (BEAKER) (test code = 414) MONOCYTES ABSOLUTE COUNT (BEAKER) 0.32 K/ L 0.24-0.36 (test code = 415) EOSINOPHILS ABSOLUTE COUNT 0.37 K/ L 0.04-0.36 H (BEAKER) (test code = 416) BASOPHILS ABSOLUTE COUNT (BEAKER) 0.02 K/ L 0.01-0.08 (test code = 417) IMMATURE GRANULOCYTES-RELATIVE 0 % 0-1 PERCENT (BEAKER) (test code = 2801) Osmolality, [id number] 12:08:00 Test Item Value Reference Range Interpretation Comments Osmolality, Ur (test code = 597 50-1,200 mOsm/kg mOsm/kg 2695-5) Lab Interpretation (test code Normal = 50883-3) [facility] [id number] 12:08:00 Test Item Value Reference Range Interpretation Comments OSMOLALITY URINE (BEAKER) (test 597 mOsm/kg 50-1,200 mOsm/kg code = 614) Sodium, random [id number] 11:50:00 Test Item Value Reference Range Interpretation Comments Sodium Urine (test 73 meq/L code = 2955-3) PITER (test code = Reference Range: No PITER) NormalsOperator ID - NTP [facility] RANDOM [id number] 11:50:00 Test Item Value Reference Range Interpretation Comments SODIUM URINE (BEAKER) (test code = 73 meq/L 243) Reference Range: No NormalsOperator ID - NTPOsmolality, [id number] 11:07:00 Test Item Value Reference Range Interpretation Comments Osmolality Serum (test code = 258 275- 295 mOsm/kg L 2692-2) Lab Interpretation (test code = Abnormal 55766-9) [facility] [id number] 11:07:00 Test Item Value Reference Range Interpretation Comments OSMOLALITY, SERUM (BEAKER) (test 258 mOsm/kg 275-295 L code = 615) BASIC METABOLIC [id number] 06:33:00 Test Item Value Reference Range Interpretation Comments SODIUM (BEAKER) 123 meq/L 136-145 L (test code = 381) POTASSIUM (BEAKER) 4.1 meq/L 3.5-5.1 (test code = 379) CHLORIDE (BEAKER) 89 meq/L 98-107 L (test code = 382) CO2 (BEAKER) (test 24 meq/L 22-29 code = 355) BLOOD UREA NITROGEN 13 mg/dL 7-21 (BEAKER) (test code = 354) CREATININE (BEAKER) 0.76 mg/dL 0.57-1.25 (test code = 358) GLUCOSE RANDOM 86 mg/dL 70-105 (BEAKER) (test code = 652) CALCIUM (BEAKER) 8.1 mg/dL 8.4-10.2 L (test code = 697) EGFR (BEAKER) (test 74 mL/min/1.73 ESTIMA DREW GFR IS code = 1092) sq m NOT ACCURATE CREATININE CLEARANCE IN PREDICTING GLOMERULAR FILTRATION RATE . ESTIMATED GFR I S NOT APPLICABLE FOR DIALYSIS PATIEN TS. Retail Shift Leader ID - NTPSpecimen slightly ictericCBC W/PLT COUNT & AUTO [id number] 06:07:00 Test Item Value Reference Range Interpretation Comments WHITE BLOOD CELL COUNT (BEAKER) 8.3 K/ L 3.5-10.5 (test code = 775) RED BLOOD CELL COUNT (BEAKER) 5.41 M/ L 3.93-5.22 H (test code = 761) HEMOGLOBIN (BEAKER) (test code = 14.6 GM/DL 11.2-15.7 410) HEMATOCRIT (BEAKER) (test code = 45.0 % 34.1-44.9 H 411) MEAN CORPUSCULAR VOLUME (BEAKER) 83.2 fL 79.4-94.8 (test code = 753) MEAN CORPUSCULAR HEMOGLOBIN 27.0 pg 25.6-32.2 (BEAKER) (test code = 751) MEAN CORPUSCULAR HEMOGLOBIN CONC 32.4 GM/DL 32.2-35.5 (BEAKER) (test code = 752) RED CELL DISTRIBUTION WIDTH 15.1 % 11.7-14.4 H (BEAKER) (test code = 412) PLATELET COUNT (BEAKER) (test 141 K/CU MM 150-450 L code = 756) MEAN PLATELET VOLUME (BEAKER) 11.3 fL 9.4-12.3 (test code = 754) NUCLEATED RED BLOOD CELLS 0 /100 WBC 0-0 (BEAKER) (test code = 413) NEUTROPHILS RELATIVE PERCENT 79 % (BEAKER) (test code = 429) LYMPHOCYTES RELATIVE PERCENT 8 % (BEAKER) (test code = 430) MONOCYTES RELATIVE PERCENT 8 % (BEAKER) (test code = 431) EOSINOPHILS RELATIVE PERCENT 6 % (BEAKER) (test code = 432) BASOPHILS RELATIVE PERCENT 0 % (BEAKER) (test code = 437) NEUTROPHILS ABSOLUTE COUNT 6.50 K/ L 1.56-6.13 H (BEAKER) (test code = 670) LYMPHOCYTES ABSOLUTE COUNT 0.64 K/ L 1.18-3.74 L (BEAKER) (test code = 414) MONOCYTES ABSOLUTE COUNT (BEAKER) 0.62 K/ L 0.24-0.36 H (test code = 415) EOSINOPHILS ABSOLUTE COUNT 0.48 K/ L 0.04-0.36 H (BEAKER) (test code = 416) BASOPHILS ABSOLUTE COUNT (BEAKER) 0.02 K/ L 0.01-0.08 (test code = 417) IMMATURE GRANULOCYTES-RELATIVE 0 % 0-1 PERCENT (BEAKER) (test code = 2801) CT, CAROTID, [id number] 14:04:00Unlisted Reason for Exam - Click Yes and Enter Reason Below->YesUnlisted Reason for Exam->Evaluate vertebral artery originFINAL REPORT CTA Neck and upper chest Clinical history: Unlisted Reason for ExamNeuro deficit, acute, stroke suspectedEvaluate vertebral artery origin TECHNIQUE: Contiguous axialimages of the neck with intravenous contrast. Coronal and sagittal reformations were also performed.3-D reconstructions were performed using a volume rendered technique separately on a workstation. This exam was performed according to the departmental dose optimization program which includes automated exposure control, adjustment of the mA and/or kV according to the patient size, and/or use of an iterative reconstruction technique. Stenosis evaluation reported in compliance with NASCET criteria. COMPARISON: None FINDINGS: Great vessel origins: No occlusion or high-grade stenosis. Carotid arteries: Atherosclerosis of the bilateral carotid bifurcations. There is approximately 60% focal stenosis of the right ICA and 50% focal stenosis of the left ICA per NASCET criteria. Vertebral arteries: Mild stenosis of the left vertebral origin. Mild atherosclerosis of the right vertebral origin without significant stenosis. The remainder of the vertebral arteries are of normal course and caliber. No fracture or suspicious osseous lesion. There is a 1.2 cm left thyroid lobe nodule, for which no further imaging is recommended. Visualized lung apices are clear. Bilateral pleural thickening and calcification. Trace pleural fluid. IMPRESSION:60% focal stenosis of the right ICA and 50% focal stenosis of the left ICA per NASCET criteria. Mild stenosis of the left vertebral origin. Signed: Christian Laech MDReport Verified Date/Time: 02/27/2020 14:04:11 CTA [id number] 14:04:00Interface, External Ris In - 02/27/2020 2:06 PM CDTFINAL REPORT CTA Neck andupper chest Clinical history: Unlisted Reason for ExamNeuro deficit, acute, stroke suspectedEvaluatevertebral artery origin TECHNIQUE: Contiguous axial images of the neck with intravenous contrast. Coronal and sagittal reformations were also performed. 3-D reconstructions were performed using a volume rendered technique separately on a workstation. This exam was performed according to the departmental dose optimization program which includes automated exposure control, adjustment of the mA and/or kV according to the patient size, and/or use of an iterative reconstruction technique. Stenosis evaluation reported in compliance with NASCET criteria. COMPARISON: None FINDINGS: Great vessel origins: No occlusion or high-grade stenosis. Carotid arteries: Atherosclerosis of the bilateral carotid bifurcations. There is approximately 60% focal stenosis of the right ICA and 50% focal stenosis of the left ICA per NASCET criteria. Vertebral arteries: Mild stenosis of the left vertebral origin. Mild atherosclerosis of the right vertebral origin without significant stenosis. The remainder of the vertebral arteries are of normal course and caliber. No fracture or suspicious osseous lesion. There is a 1.2cm left thyroid lobe nodule, for which no further imaging is recommended. Visualized lung apices areclear. Bilateral pleural thickening and calcification. Trace pleural fluid. IMPRESSION:60% focal stenosis of the right ICA and 50% focal stenosis of the left ICA per NASCET criteria. Mild stenosis of the left vertebral origin. Signed: Christian Leach MDReport Verified Date/Time: 02/27/2020 14:04:11 [facility], ANGIOGRAM, [id number] 11:19:00Reason for exam:->carotid stenosisFINAL REPORT Date of Procedure: February 25, 2020 Surgeon: Radu JAVIERAssistant: Steven Nielsen MD Pre- operative diagnosis: Carotid StenosisPost-operative diagnosis: Carotid Stenosis Procedure: Diagnostic Angiogram Vessels studied Right Radial ArteryRight Vertebral ArteryRightCommon Carotid ArteryLeft Common Carotid Artery Anesthesiologist: per anesthesia recordsAnesthesia Type: MAC Complications: None Indication for procedure:74F presenting with left sided weakness, right i schemic stroke and indication of carotid stenosis on non-invasive imaging. DSA for characterization of degree of stenosis. Procedure in Detail: AngiogramFollowing explanation of the benefits, risks andalternatives for the procedure, informed consent was obtained from the patient. The risks including but not limited to stroke, intracranial hemorrhage, vascular injury to the cervical or access vessels were discussed. A time-out was performed. Both groins and wrists were prepped in the usual sterilefashion using Chloroprep, and sterilely draped. Access was initiated at the right distal radial artery and a 5/6 slender sheath was placed and maintained on heparinized flush. A [employer] 2 glide diagnostic catheter was introduced and brought into the aortic arch under fluoroscopic guidance. The diagnostic catheter was used to catheterize the right common carotid artery, right vertebral artery and left common carotid artery. Upon each successive selective catheterization, digital subtraction angiography using the appropriate rate and volume of contrast in multiple projections was performed. After adequate visualization of all vessels all sheaths and catheters were removed and a prelude band was used for radial hemostasis. The patient was transported to PACU in stable condition. Findings: Right Radial Artery (AP)- radial artery is widely patent without evidence of ulceration . There is very mild proximal radial spasm. Right Common Carotid Artery (AP, Lateral)-There is a calcified atherosclerotic plaque located circumferentially at the internal carotid origin that causes a maximum of 42% stenosisby NASCET criteria. There is not a flow limiting stenosis as the ICA/ECA territories fill concurrently. -The visualized branches of the external carotid artery are normal in course and appearance. There is no evidence of arteriovenous shunting. The capillary and venous phases are normal -The cervical carotid artery is patent without areas of stenosis, dissection or ulceration; and is without branches-The petrous carotid artery is patent without areas of stenosis, dissection or ulceration the mandibulovidian artery is not visualized, no petrosal segment aneurysms -The cavernous carotid artery is patent without areas of stenosis, dissection, or ulceration, meningohypophyseal trunk and inferolateraltrunks are not visualized, there are no cavernous segment aneurysms -The supraclinoidal carotid artery, the opthalmic, communicating, and choroidal segments are patent without areas of stenosis and without aneurysms. The posterior communicating artery is small sized, the anterior choroidal artery is visualized. The A1 and M1 segments are visualized and are without stenosis or vasospasm. -The ILDEFONSO fill physiologically throughout their territory without cross-filling across the anterior communicatingartery. There is no noted stenosis or vasospasm noted within its branches. There are no noted aneurysms of the pericallosal or supramarginal branches. There is no evidence of arteriovenous shunting -The MCA's fill physiologically throughout their territory there is no noted stenosis, occlusion or vasospasm noted within its branches. There is no evidence for aneurysm. There is no evidence of arteriovenous shunting. The capillary phase is normal without areas of malperfusion, the venous phase demonstrates a normal venous draining pattern Right Vertebral Artery (Henry, Lateral)-The cervical course of the right vertebral artery has a normal course and appearance. Muscular branches arising from the distal segments are visualized. There is no arteriovenous shunting nor vascular malformations. There is cross-filling into the left vertebral artery retrograde to the distal V2 segment. There is no steno sis or ulceration noted in the vertebral or basilar arteries. AICA /PICA complexes are noted bilaterally, and superior cerebellar arteries are visualized no evidence of aneurysms at their origins. The premium auditor fill symmetrically, there is no evidence of stenosis or vasospasm. There is faint reflux in to the posterior communicating arteries. The capillary phase is normal and a normal venous drainage pattern is noted Left Common Carotid Artery (AP, Lateral,)-There is a calcified atherosclerotic plaque at the bifurcation that causes a maximum of 35% stenosis by NASCET criteria. There is not a flow limiting stenosis as the ICA/ECA territories fill concurrently. -The visualized branches of the external carotid artery are normal in course and appearance. There is no evidence of arteriovenous shunting. The capillary and venous phases are normal - The cervical carotid artery is patent without areas of stenosis, dissection or ulceration; and is without branches -The petrous carotid artery is patent withoutareas of stenosis, dissection or ulceration the mandibulovidian artery is not visualized, no petrosal segment aneurysms -The cavernous carotid artery is patent without areas of stenosis, dissection, orulceration, meningohypophyseal trunk and inferolateral trunks are not visualized, there are no cavernous segment aneurysms -The supraclinoidal carotid artery, the opthalmic, communicating, and choroidal segments are patent without areas of stenosis and without aneurysms. The posterior communicating artery is small sized and with an infundibular origin, the anterior choroidal artery is visualized. The A1 and M1 segments are visualized and are without stenosis or vasospasm. -The ILDEFONSO fill physiologically throughout their territory without cross-filling across the anterior communicating artery. Thereis no noted stenosis or vasospasm noted within its branches. There are no noted aneurysms of the pericallosal or supramarginal branches. There is no evidence of arteriovenous shunting -The MCA's fill physiologically throughout their territory there is no noted stenosis, occlusion or vasospasm noted within its branches. There are no noted aneurysms. There is no evidence of arteriovenous shunting. Thecapillary phase is normal without areas of malperfusion, the venous phase demonstrates a normal venous draining pattern Summary of Findings 1. Moderate bilateral carotid stenosis. 42% stenosis by NASCET criteria on right, 35% stenosis by NASCET criteria on the left.2. No other vascular malformations noted3. No radiographic or clinical evidence of complication Signed: Kari, Imtiaz MDReport Verified D ate/Time: 02/27/2020 11:19:35 Reading Location: [facility] Y026 Neuro Angio Reading Room NV cerebral 4 vessel [id number] 11:19:00Interface, External Ris In - 02/27/2020 11:21 AM CDTFINAL REPORT Date of Procedure: February 25, 2020 Surgeon: Radu JAVIERAssistant: Steven Nielsen MD Pre- operative diagnosis: Carotid StenosisPost-operative diagnosis: Carotid Stenosis Procedure: Diagnostic Angiogram Vessels studied Right Radial ArteryRight Vertebral ArteryRight Common Carotid ArteryLeft Common Carotid Artery A nesthesiologist: per anesthesia recordsAnesthesia Type: MAC Complications: None Indication for procedure:74F presenting with left sided weakness, right ischemic stroke and indication of carotid stenosis on non-invasive imaging. DSA for characterization of degree of stenosis. Procedure in Detail: AngiogramFollowing explanation of the benefits, risks and alternatives for the procedure, informed consentwas obtained from the patient. The risks including but not limited to stroke, intracranial hemorrhage, vascular injury to the cervical or access vessels were discussed. A time-out was performed. Bothgroins and wrists were prepped in the usual sterile fashion using Chloroprep, and sterilely draped. Access was initiated at the right distal radial artery and a 5/6 slender sheath was placed and maintained on heparinized flush. A [employer] 2 glide diagnostic catheter was introduced and brought into theaortic arch under fluoroscopic guidance. The diagnostic catheter was used to catheterize the right common carotid artery, right vertebral artery and left common carotid artery. Upon each successive selective catheterization, digital subtraction angiography using the appropriate rate and volume of contrast in multiple projections was performed. After adequate visualization of all vessels all sheaths and catheters were removed and a prelude band was used for radial hemostasis. The patient was transported to PACU in stable condition. Findings: Right Radial Artery (AP)- radial artery is widely patent without evidence of ulceration . There is very mild proximal radial spasm. Right Common Carotid Artery(AP, Lateral)-There is a calcified atherosclerotic plaque located circumferentially at the internal c arotid origin that causes a maximum of 42% stenosis by NASCET criteria. There is not a flow limitingstenosis as the ICA/ECA territories fill concurrently. -The visualized branches of the external carotid artery are normal in course and appearance. There is no evidence of arteriovenous shunting. The capillary and venous phases are normal -The cervical carotid artery is patent without areas of stenosis, dissection or ulceration; and is without branches -The petrous carotid artery is patent without areas of stenosis, dissection or ulceration the mandibulovidian artery is not visualized, no petrosal segment aneurysms -The cavernous carotid artery is patent without areas of stenosis, dissection, or ulc eration, meningohypophyseal trunk and inferolateral trunks are not visualized, there are no cavernous segment aneurysms -The supraclinoidal carotid artery, the opthalmic, communicating, and choroidal segments are patent without areas of stenosis and without aneurysms. The posterior communicating artery is small sized, the anterior choroidal artery is visualized. The A1 and M1 segments are visualizedand are without stenosis or vasospasm. -The ILDEFONSO fill physiologically throughout their territory without cross-filling across the anterior communicating artery. There is no noted stenosis or vasospasm noted within its branches. There are no noted aneurysms of the pericallosal or supramarginal branches. There is no evidence of arteriovenous shunting -The MCA's fill physiologically throughout their territory there is no noted stenosis, occlusion or vasospasm noted within its branches. There is no evidence for aneurysm. There is no evidence of arteriovenous shunting. The capillary phase is normal without areas of malperfusion, the venous phase demonstrates a normal venous draining pattern Right Vertebral Artery (Henry, Lateral)-The cervical course of the right vertebral artery has a normal course and appearance. Muscular branches arising from the distal segments are visualized. There is no arterio venous shunting nor vascular malformations. There is cross-filling into the left vertebral artery retrograde to the distal V2 segment. There is no stenosis or ulceration noted in the vertebral or basilar arteries. AICA /PICA complexes are noted bilaterally, and superior cerebellar arteries are visualized no evidence of aneurysms at their origins. The premium auditor fill symmetrically, there is no evidence of stenosis or vasospasm. There is faint reflux in to the posterior communicating arteries. The capillary phase is normal and a normal venous drainage pattern is noted Left Common Carotid Artery (AP, Lateral,)-There is a calcified atherosclerotic plaque at the bifurcation that causes a maximum of 35% stenosis by NASCET criteria. There is not a flow limiting stenosis as the ICA/ECA territories fill concurrently. -The visualized branches of the external carotid artery are normal in course and appearance. There is no evidence of arteriovenous shunting. The capillary and venous phases are normal -The cervical carotid artery is patent without areas of stenosis, dissection or ulceration; and is without branches -The petrous carotid artery is patent without areas of stenosis, dissection or ulceration the mandibulovidian artery is not visualized, no petrosal segment aneurysms -The cavernous carotid arteryis patent without areas of stenosis, dissection, or ulceration, meningohypophyseal trunk and inferolateral trunks are not visualized, there are no cavernous segment aneurysms -The supraclinoidal carotid artery, the opthalmic, communicating, and choroidal segments are patent without areas of stenosis and without aneurysms. The posterior communicating artery is small sized and with an infundibular orig in, the anterior choroidal artery is visualized. The A1 and M1 segments are visualized and are without stenosis or vasospasm. -The ILDEFONSO fill physiologically throughout their territory without cross-filling across the anterior communicating artery. There is no noted stenosis or vasospasm noted within its branches. There are no noted aneurysms of the pericallosal or supramarginal branches. There is no evidence of arteriovenous shunting -The MCA's fill physiologically throughout their territory there is no noted stenosis, occlusion or vasospasm noted within its branches. There are no noted aneurysms. There is no evidence of arteriovenous shunting. The capillary phase is normal without areas of malperfusion, the venous phase demonstrates a normal venous draining pattern Summary of Findings 1. Moderate bilateral carotid stenosis. 42% stenosis by NASCET criteria on right, 35% stenosis by NASCET criteria on the left.2. No other vascular malformations noted3. No radiographic or clinical evidence of complication Signed: Imtiaz Chaudhary MDReport Verified Date/Time: 02/27/2020 11:19:35 Reading Location:[facility] B1 Y026 Neuro Angio Reading Room 11:19 [facility]-Glucose [id number] 10:30:00 Test Item Value Reference Range Interpretation Comments POC-Glucose Meter (test 106 mg/dL 70-110 : TE STED AT [facility] code = 1538) [address] [place], [address]: Retail Shift Leader/Techni javi ID = [id number] for JASMINE LEE Lab Interpretation (test Normal code = 19250-7) [facility] [id number] 10:30:00 Test Item Value Reference Range Interpretation Comments POC-GLUCOSE METER 106 mg/dL 70-110 : [facility] (BEAKER) (test code = [place], [address]38) [address]: Retail Shift Leader/Techni javi ID = [id number] for MICHELLE OTERO BASIC METABOLIC [id number] 09:48:00 Test Item Value Reference Range Interpretation Comments SODIUM (BEAKER) 125 meq/L 136-145 L (test code = 381) POTASSIUM (BEAKER) 3.2 meq/L 3.5-5.1 L (test code = 379) CHLORIDE (BEAKER) 93 meq/L 98-107 L (test code = 382) CO2 (BEAKER) (test 22 meq/L 22-29 code = 355) BLOOD UREA NITROGEN 13 mg/dL 7-21 (BEAKER) (test code = 354) CREATININE (BEAKER) 0.78 mg/dL 0.57-1.25 (test code = 358) GLUCOSE RANDOM 96 mg/dL 70-105 (BEAKER) (test code = 652) CALCIUM (BEAKER) 7.9 mg/dL 8.4-10.2 L (test code = 697) EGFR (BEAKER) (test 72 mL/min/1.73 ESTIMA DREW GFR IS code = 1092) sq m NOT ACCURATE CREATININE CLEARANCE IN PREDICTING GLOMERULAR FILTRATION RATE . ESTIMATED GFR I S NOT APPLICABLE FOR DIALYSIS PATIEN TS. Retail Shift Leader ID - QUINCY CCBC W/PLT COUNT & AUTO [id number] 09:07:00 Test Item Value Reference Range Interpretation Comments WHITE BLOOD CELL COUNT (BEAKER) 7.3 K/ L 3.5-10.5 (test code = 775) RED BLOOD CELL COUNT (BEAKER) 4.99 M/ L 3.93-5.22 (test code = 761) HEMOGLOBIN (BEAKER) (test code = 13.6 GM/DL 11.2-15.7 410) HEMATOCRIT (BEAKER) (test code = 41.1 % 34.1-44.9 411) MEAN CORPUSCULAR VOLUME (BEAKER) 82.4 fL 79.4-94.8 (test code = 753) MEAN CORPUSCULAR HEMOGLOBIN 27.3 pg 25.6-32.2 (BEAKER) (test code = 751) MEAN CORPUSCULAR HEMOGLOBIN CONC 33.1 GM/DL 32.2-35.5 (BEAKER) (test code = 752) RED CELL DISTRIBUTION WIDTH 15.2 % 11.7-14.4 H (BEAKER) (test code = 412) PLATELET COUNT (BEAKER) (test 140 K/CU MM 150-450 L code = 756) MEAN PLATELET VOLUME (BEAKER) 10.5 fL 9.4-12.3 (test code = 754) NUCLEATED RED BLOOD CELLS 0 /100 WBC 0-0 (BEAKER) (test code = 413) NEUTROPHILS RELATIVE PERCENT 83 % (BEAKER) (test code = 429) LYMPHOCYTES RELATIVE PERCENT 7 % (BEAKER) (test code = 430) MONOCYTES RELATIVE PERCENT 7 % (BEAKER) (test code = 431) EOSINOPHILS RELATIVE PERCENT 3 % (BEAKER) (test code = 432) BASOPHILS RELATIVE PERCENT 0 % (BEAKER) (test code = 437) NEUTROPHILS ABSOLUTE COUNT 6.05 K/ L 1.56-6.13 (BEAKER) (test code = 670) LYMPHOCYTES ABSOLUTE COUNT 0.49 K/ L 1.18-3.74 L (BEAKER) (test code = 414) MONOCYTES ABSOLUTE COUNT (BEAKER) 0.48 K/ L 0.24-0.36 H (test code = 415) EOSINOPHILS ABSOLUTE COUNT 0.23 K/ L 0.04-0.36 (BEAKER) (test code = 416) BASOPHILS ABSOLUTE COUNT (BEAKER) 0.01 K/ L 0.01-0.08 (test code = 417) IMMATURE GRANULOCYTES-RELATIVE 0 % 0-1 PERCENT (BEAKER) (test code = 2801) Transesophageal [id number] 15:38:48Ejection FractionSLEH ECHO HEARTLAB MKCKESSON CPACSInterface, External Ris In - 02/26/2020 3:39 PM C DTTransesophageal Echocardiography Report (AVIS) Demographics Patient Name ASHAWAY, Date of Study 02/26/2020 JOSE Gender Female Visit Number [id number] Race Room Number 2251 Number Date of 1945 Referring Physician Age 74 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 . Type of Anesthesia: Moderate sedation Summary Aortic root size (SInus of Valsalva diameter) isnormal . The aortic sinotubular junction appears normal . Proximal ascending aorta size is normal . Grade 3 plaque (atheroma < 5mm) in the ascending aorta and aortic arch. Grade 4 mountainous plaque(atheroma > 5mm) diffusely throughout the descending thoracic aorta . IV saline contrast injection was negative for a PFO (patent foramen ovale) at rest and post Valsalva . No other intracardiac potential source of embolus identified. Signature Findings Rhythm/BP Regular sinus rhythm during the exam. Left Ventricle Normal left ventricular chamber size. Normal wall thickness. Normal overall left ventricular systolic function. No apparent segmental wall motion abnormalities. Left Atrium LA is enlarged but severity assessment is unreliable due to known AVIS sector size limitation. LA appendage morphology is simple (wind sock) . No LA appendage Thrombus visualized. Right Ventricle The right ventricular chamber size and systolic function are within normal limits. RightAtrium RA size is mildly dilated. Atrial Septum Lipomatous hypertrophy of the interatrial septum is present. A patent foramen ovale (PFO) is not demonstrated by color Doppler. IV saline contr ast injection was negative for a PFO (patent foramen ovale) at rest and post Valsalva . Aortic Valve Normal AoV structure and function by limited views and Doppler. Mitral Valve Trace mitral regurgitation. Tricuspid Valve Moderate TR. Estimated PASP is 50-55mmHg plus RA pressure. Pulmonic ValveNormal PV structure and function by limited views and Doppler. Aorta Aortic root size (SInus of Valsalva diameter) is normal . The aortic sinotubular junction appears normal . Proximal ascending aorta size is normal . Grade 3 plaque (atheroma < 5mm) in the ascending aorta and aortic arch. Grade 4 mountainous plaque (ather jude > 5mm) diffusely throughout the descending thoracic aorta . Pericardium No significant pericardial effusion is visualized. IVC/SVC/PA/PV/Pleural The pulmonary veins appear normal. Chambers/StructuresAorta Ao Root S of Shrtui.: 2.44 cm Ascending Aorta: 2.[address] Junction: 2.03 [facility] 2020-02-25 14:06:00 Test Item Value Reference Range Interpretation Comments Troponin I (test code = 0.01 ng/mL 0-0.03 77210-0) PITER (test code = PITER) Troponin I (TnI) levels must be interpreted in the context of the presenting symptoms and the clinical findings. Elevated TnI levels indicate myocardial damage, but are not specific for ischemic heart disease. Elevated TnI levels are seen in patients with other cardiac conditions (including myocarditis and congestive heart failure), and slight TnI elevations occur in patients with other conditions, including sepsis, renal failure, acidosis, acute neurological disease, and persistent tachyarrhythmia.Opera moe VALE M Lab Interpretation (test Normal code = 01142-8) [facility] [id number] 14:06:00 Test Item Value Reference Range Interpretation Comments TROPONIN I (BEAKER) (test code = 0.01 ng/mL 0.00-0.03 397) Troponin I (TnI) levels must be interpreted in the context of the presenting symptoms and the clinical findings. Elevated TnI levels indicate myocardial damage, but are not specific for ischemic heart disease. Elevated TnI levels are seen in patients with other cardiac conditions (including myocarditis and congestive heart failure), and slight TnI elevations occur in patients with other conditions, including sepsis, renal failure, acidosis, acute neurological disease, and persistent tachyarrhythmia.Retail Shift Leader ID - KAVIN MMR, BRAIN, WITHOUT [id number] 14:04:00Unlisted Reason for Exam - Click Yes and Enter Reason Below->NoFINAL REPORT MR, BRAIN, WITHOUT CONTRAST INDICATION: Stroke, follow up TECHNIQUE: Multiplanar, multisequence MR imaging of the brain without intravenous contrast. COMPARISON: Outside CT and CTA 02/24/2020 FINDINGS: Intracranial: There is multifocal restricted diffusion and FLAIRhyperintensity within the right posterior parietal lobe and right mesial occipital lobe. There are foci of susceptibility weighted signal dropout within the mesial parietal occipital junction suggestive of hemorrhagic conversion. No mass effect. No hydrocephalus. The distal right [employer]IC flow void is not visualized. Sinuses: No evidence of sinusitis. Mastoids are clear. Orbits: Globes are intact. Calvarium \\T\\ scalp: Unremarkable. 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 Signed: Christian Leach MDReport Verified Date/Time: 02/25/2020 14:04:12 MR brain without IV [id number] 14:04:00Interface, External Ris In - 02/25/2020 2:06 PM CDTFINAL REPORT MR, BRAIN, WITHOUT CONTRAST INDICATION: Stroke, follow up TECHNIQUE: Multiplanar, multisequence MR imaging of thebrain without intravenous contrast. COMPARISON: Outside CT and CTA 02/24/2020 FINDINGS: Intracranial: There is multifocal restricted diffusion and FLAIR hyperintensity within the right posterior parieta l lobe and right mesial occipital lobe. There are foci of susceptibility weighted signal dropout within the mesial parietal occipital junction suggestive of hemorrhagic conversion. No mass effect. No hydrocephalus. The distal right [employer]CH[employer]IC flow void is not visualized. Sinuses: No evidence of sinusitis. Mastoids are clear. Orbits: Globes are intact. Calvarium \\T\\ scalp: Unremarkable. IMPRESSION:Acute right parieto-occipital infarct with small focus of hemorrhagic conversion at the parieto-occipital junction. Signed: Christian Leach MDReport Verified Date/Time: 02/25/2020 14:04:12 Electronically signedby: CHRISTIAN LEACH MD on 02/25/2020 02:04 [facility] SARS-CoV2/RT-PCR (Asymptomatic ONLY)2020-02-25 13:28:00 Test Item Value Reference Range Interpretation Comments SARS-COV2/RT-PCR Negative Not Detected, (test code = Negative, See 25172-5) external report for linked test SARS-COV-2 [facility] PERFORMING LAB (test code = 39722-0) PITER (test code = Negative result for this PITER) test determines that SARS-CoV-2 RNA was not present in the specimen above the Limit of Detection (LOD). However, Negative results do not preclude SARS-CoV-2 infection and should not be used as the sole basis for treatment or patient management decisions. Negative results must be combined with clinical observations, patient history, and epidemiological information. A false negative result may occur if a specimen is improperly collected, transported or handled. A false negative result should be considered if patient's recent exposures or clinical presentation indicate that COVID-19 (SARS-CoV-2) is likely and diagnostic tests for other causes of illness are negative. Re-testing should be considered in cases of suspected [...] Food and Drug Administration (FDA) cleared or approved. This is a modified version of an approved [...] of the Act. Fact Sheet for Healthcare Providers:https://www.[employer]/sites/default/f mayelin/product/documents/F act_Sheet_HC_Providers_L ygu_WYMA-YjU-7.pdf Fact Sheet for Healthcare Patients:https://www.[employer]/sites/default/fi les/product/documents/Fa ct_Sheet_Patients_Lyra_S ARS-CoV-2.pdf Performing Laboratory:[facility] [place] [address] [facility])2020-02-25 13:28:00 Test Item Value Reference Range Interpretation Comments SARS-COV2/RT-PCR (test Negative Not Detected, Negative, code = 3054736) See external report for linked test SARS-COV-2 PERFORMING LAB [facility] (test code = 7848997) Negative result for this test determines that SARS-CoV-2 RNA was not present in the specimen above the Limit of Detection (LOD). However, Negative results do not preclude SARS-CoV-2 infection and should not be used as the sole basis for treatment or patient management decisions. Negative results mustbe combined with clinical observations, patient history, and epidemiological information. A false negative result may occur if a specimen is improperly collected, transported or handled. A false negative result should be considered if patient's recent exposures or clinical presentation indicate that COVID-19 (SARS-CoV-2) is likely and diagnostic tests for other causes of illness are negative. Re-testing should be considered in cases of suspected false negatives.The limit of detection for this assay is 800 copies/mL.This SARS CoV-2 test is a real-time RT-PCR test intended for the qualitative detection of nucleic acid from SARS-CoV-2 in a nasopharyngeal swab specimen collected from individuals suspected of COVID-19 by their healthcare provider.This test has not been Food and Drug Administration (FDA) cleared or approved. This is a modified version of an approved [...] is revoked under Section 564(g) of the Act.Fact Sheet for Healthcare Providers:https://www.[employer]/sites/default/files/product/documents/Fact_Shee y_OX_Cajqvoxop_Srwg_CLYU-YmB-7.pdfFact Sheet for Healthcare Patients:https://www.[employer]/sites/default/files/product/ documents/Tjem_Bcpjw_Amrjhpwz_Akqt_KRIX-TuA-7.pdfPerforming Laboratory:[facility], [place] [address]IYA 12 [id number] 12:35:35Interface, External Ris In - 02/25/2020 12:35 PM CDTVentricular Rate 74 BPMAtrial Rate 74 BPMP-R Interval 208 msQRS Duration 64 msQ-T Interval 456 msQTC Calculation(Bazett) 506 msP Iuka 41 degreesR Iuka 1 degreesT [place]uka 31 degreesNormal sinus rhythmLow voltage QRSProlonged QTAbnormal ECGWhen compared with ECG of 24-FEB-2020 13:25,QT has lengthenedConfirmed by MD JADA, LOYD ([id number]) on 02/25/2020 12:35:33 [facility], NON [id number] 11:54:00Reason for exam:->PRe opShould this be performed at the bedside?->YesFINAL REPORT INDICATION: PRe op COMPARISON: None TECHNIQUE: Single frontal view of the chest. FINDINGS: Lungs and pleura: Bibasilar atelectasis No effusion.Heart and mediastinum:Normal heart size. Unremarkable mediastinal contours.Osseous structures: No acute abnormality.Other:None. Signed: Sonia Hay MDReport Verified Date/Time: 02/25/2020 11:54:47 Reading Location: [facility] Radiology Reading Room XR chest 1 view portable / [id number] 11:54:00Interface, External Ris In - 02/25/2020 11:57 AM CDTFINAL REPORT INDICATION: PRe op COMPARISON: None TECHNIQUE: Single frontal view of the chest. FINDINGS: Lungs and pleura: Bibasilar atelectasis No effusion.Heart and mediastinum: Normal heart size. Unremarkable mediastinal contours.Osseous structures: No acute abnormality.Other: None. Signed: Sonia Hay MDReport Verified Date/Time: 02/25/2020 11:54:47 Reading Location: [facility] Radiology Reading Room [facility]2D Echo W/Doppler(CW/PW/Color)2020-02-25 10:28:25 Ejection FractionSLEH ECHO HEARTLAB MKCKESSON CPACSInterface, External Ris In - 02/25/2020 10:28 AM CDTTransthoracic Echocardiography Report (TTE) Demographics Patient Name ANDREA, Date of Study 02/24/2020 JOSE Gender Female Visit Number [id number] Race Unknown Room Number 2251 Number Date of 1945 Referring Physician Nisa Rodriguez Age 74 year(s) Maintenance Dispatcher Luis A Humphrey [facility] Journeyman Meat Cutter Sary Simms, Interpreting Shola March MD [facility] Physician Procedure Type of Study TTE procedure:2DECHO W DOPPLER(CW/PW/COLOR) (Routine) Indications:Suspected cardiac source ofemboli.Clinical HistoryHypertensionPulmonary hypertensionCoronary Artery DiseasePADContrast Medium: Bubble Study.Height: 62 inches Weight: 72.12 kg (159 lbs) BSA: 1.73 m^2 BMI: 29.08 kg/m^2HR: 70 bpm BP: 184/84 mmHg Summary IV [...] Grade 1 diastolic dysfunction (impaired relaxation and low- normal LA pressure). Estimated peak systolic PA pressure is 24 mmHg + RA pressure. (RA pressure indeterminate on thisexam) Previous Study No prior studies available for comparison. Signature Findings Technical Quality: Technically adequate exam. Left Ventricle The left ventricle is chamber size (by vol index) is normal (female - LVED vol - 29-61ml/m2). Mild basal septal hypertrophy is present. All of the LV segments contract normally . Global LV systolic function normal . LVEF by Proctor'smethod of disk assessment is normal (>60%) . Grade 1 diastolic dysfunction (impaired relaxation and low-normal LA pressure). Left Atrium LA size is normal (16- 34 ml/m2) . Right Ventricle The right ventricle is not well visualized. Right Atrium RA size is normal. Atrial Septum IV saline contrast injection was negative for a PFO (patent foramen ovale) at rest and postValsalva . Aortic Valve Mild AoV cusp thickening. No evidence of aortic regurgitation. Mitral Valve Mild mitral annular calcification. Trace mitral regurgitation. Tricuspid Valve TV structure is normal. Mild tricuspid regurgitation. Estimated peak systolic PA pressure is 24 mmHg +RA pressure. (RA pressure indeterminate on this exam) Pulmonic ValveNormal PV structure and function by limited views and Doppler. Aorta Aortic root size (SInus of Valsalva diameter) is normal . Pericardiu m No pericardial effusion is visualized. IVC/SVC/PA/PV/Pleural The inferior vena cava is not well visualized. Chambers/Structures Left Atrium LA Volume: 58.89 ml LA Area: 19.36 cm^2 LA Vol. Index: 34 ml/m^2 Left Ventricle LVIDd: 3.95 cm LV Septum Diastolic: 1.27 cm LV PW Diastolic: 0.6 cm LVEDV Proctor's:55.68 ml LVESV Proctor's:18.09 ml LVEF Proctor's: 67.5 % LVEDVI: 32 ml/m^2 LVESVI: 10 ml/m^2 LVOTDiameter: 1.8 cm Aorta Ao Root S of Shruti.: 2.54 cm Doppler/Quantitative Measurements Mitral Valve MV Peak E-Wave: 0.84 m/s MV Peak A-Wave: 1.08 m/s E/A Ratio: 0.78 Peak Gradient: 2.8 mmHg Deceleration Time: 160.8 msec MV Tab. Peak: Tissue Doppler E' Lateral Velocity: 0.07m/s E/E': 12.54 Aortic Valve Peak Velocity: 1.09 m/s Mean Velocity: 0.76 m/s Peak Gradient: 4.79 mmHg Mean Gradient: 2.59 mmHg AV Area (continuity): 1.74 cm^2AV VTI: 27.14 cm AV DVI: 0.68 LVOT Peak Velocity: 0.88 m/s Peak Gradient: 3.09 mmHg Me an Velocity: 0.53 m/s Mean Gradient: 1.36 mmHg LVOT Diameter: 1.8 cm LVOT VTI: 18.59 cm LVOT Area: 2.54 cm^2 LVOT SV:47.28 ml LVOT CO: 3.31 l/min LVOT CI: 1.91 l/min/m^2 RVOT RVOT VTI (PW): 13.28 cm Tricuspid Valve TR Velocity: 2.48 m/s TR Gradient: 24.7 mmHgSeton Medical CenterHemoglobin [id number] 10:13:00 Test Item Value Reference Range Interpretation Comments Hemoglobin A1C (test code = 4548-4) 6.2 % 4.3-6.1 H Lab Interpretation (test code = Abnormal 01593-0) [facility] CenterHEMOGLOBIN [id number] 10:13:00 Test Item Value Reference Range Interpretation Comments HEMOGLOBIN A1C (BEAKER) (test code = 6.2 % 4.3-6.1 H 368) Comprehensive metabolic [id number] 09:04:00 Test Item Value Reference Range Interpretation Comments Protein, Total (test 6.5 6.0- 8.3 gm/dL code = 2885-2) Albumin (test code = 3.7 g/dL 3.5-5 36638-8) Alkaline Phosphatase 83 U/L 40-150 (test code = 6768-6) Total Bilirubin (test 0.5 mg/dL 0.2-1.2 code = 1975-2) Sodium (test code = 132 meq/L 136-145 L 2951-2) Potassium (test code = 3.5 meq/L 3.5-5.1 2823-3) Chloride (test code = 100 meq/L 98-107 2075-0) CO2 (test code = 17 meq/L 22-29 L 2028-9) BUN (test code = 16 mg/dL 7-21 3094-0) Creatinine (test code 0.81 mg/dL 0.57-1.25 = 2160-0) Glucose (test code = 119 mg/dL 70-105 H 2345-7) Calcium (test code = 8.0 mg/dL 8.4-10.2 L 70896-7) AST (test code = 28 U/L 5-34 1920-8) ALT (test code = 25 U/L 6-55 1742-6) EGFR (test code = 69 mL/min/1.[place] [address]-6) NOT ACCURATE CREATININE CLEARANCE IN PREDICTING GLOMERULAR FILTRATION RATE . ESTIMATED GFR I S NOT APPLICABLE FOR DIALYSIS PATIENTS. PITER (test code = PITER) Retail Shift Leader ID - KAVIN M Lab Interpretation Abnormal (test code = 26457-0) [facility] CenterCOMPREHENSIVE METABOLIC [id number] 09:04:00 Test Item Value Reference Range Interpretation Comments TOTAL PROTEIN 6.5 gm/dL 6.0-8.3 (BEAKER) (test code = 770) ALBUMIN (BEAKER) 3.7 g/dL 3.5-5.0 (test code = 1145) ALKALINE PHOSPHATASE 83 U/L 40-150 (BEAKER) (test code = 346) BILIRUBIN TOTAL 0.5 mg/dL 0.2-1.2 (BEAKER) (test code = 377) SODIUM (BEAKER) (test 132 meq/L 136-145 L code = 381) POTASSIUM (BEAKER) 3.5 meq/L 3.5-5.1 (test code = 379) CHLORIDE (BEAKER) 100 meq/L 98-107 (test code = 382) CO2 (BEAKER) (test 17 meq/L 22-29 L code = 355) BLOOD UREA NITROGEN 16 mg/dL 7-21 (BEAKER) (test code = 354) CREATININE (BEAKER) 0.81 mg/dL 0.57-1.25 (test code = 358) GLUCOSE RANDOM 119 mg/dL 70-105 H (BEAKER) (test code = 652) CALCIUM (BEAKER) 8.0 mg/dL 8.4-10.2 L (test code = 697) AST (SGOT) (BEAKER) 28 U/L 5-34 (test code = 353) ALT (SGPT) (BEAKER) 25 U/L 6-55 (test code = 347) EGFR (BEAKER) (test 69 mL/min/1.73 ESTIMA DREW GFR IS code = 1092) sq m NOT ACCURATE CREATININE CLEARANCE IN PREDICTING GLOMERULAR FILTRATION RATE . ESTIMATED GFR I S NOT APPLICABLE FOR DIALYSIS PATIEN TS. Retail Shift Leader EDSON VALE MLipid [id number] 06:29:00 Test Item Value Reference Range Interpretation Comments Triglycerides (test 123 mg/dL code = 2571-8) Cholesterol (test code 201 mg/dL = 2093-3) HDL (test code = 31 mg/dL 2085-9) LDL Calculated (test 145 mg/dL code = 19242-9) PITER (test code = PITER) Triglyceride Reference Range: Low Risk <150 Borderline 150-199 High Risk 200-499 Very High Risk >=500 Cholesterol Reference Range: Low Risk <200 Borderline 200-239 High Risk >240 HDL Cholesterol Reference Range: Low Risk >=60 High Risk <40 LDL Cholesterol Reference Range: Optimal <100 Near Optimal 100-129 Borderline 130-159 High 160-189 Very High >=190 Retail Shift Leader EDSON Brown [facility] CenterLIPID [id number] 06:29:00 Test Item Value Reference Range Interpretation Comments TRIGLYCERIDES (BEAKER) (test code = 123 mg/dL 540) CHOLESTEROL (BEAKER) (test code = 201 mg/dL 631) HDL CHOLESTEROL (BEAKER) (test code 31 mg/dL = 976) LDL CHOLESTEROL CALCULATED (BEAKER) 145 mg/dL (test code = 633) Triglyceride Reference Range: Low Risk <150 Borderline 150-199 High Risk 200-499 Very High Risk >=500Cholesterol Reference Range: Low Risk <200 Borderline 200-239 High Risk >240HDL Cholesterol Reference Range: Low Risk >=60 High Risk <40LDL Cholesterol Reference Range: Optimal <100 Near Optimal 100-129 Borderline 130-159 High 160-189 Very High >=190 Retail Shift Leader ID - KAVIN MCBC W/PLT COUNT & AUTO [id number] 04:59:00 Test Item Value Reference Range Interpretation Comments WHITE BLOOD CELL COUNT (BEAKER) 6.7 K/ L 3.5-10.5 (test code = 775) RED BLOOD CELL COUNT (BEAKER) 4.91 M/ L 3.93-5.22 (test code = 761) HEMOGLOBIN (BEAKER) (test code = 13.6 GM/DL 11.2-15.7 410) HEMATOCRIT (BEAKER) (test code = 41.1 % 34.1-44.9 411) MEAN CORPUSCULAR VOLUME (BEAKER) 83.7 fL 79.4-94.8 (test code = 753) MEAN CORPUSCULAR HEMOGLOBIN 27.7 pg 25.6-32.2 (BEAKER) (test code = 751) MEAN CORPUSCULAR HEMOGLOBIN CONC 33.1 GM/DL 32.2-35.5 (BEAKER) (test code = 752) RED CELL DISTRIBUTION WIDTH 14.9 % 11.7-14.4 H (BEAKER) (test code = 412) PLATELET COUNT (BEAKER) (test 179 K/CU MM 150-450 code = 756) MEAN PLATELET VOLUME (BEAKER) 11.0 fL 9.4-12.3 (test code = 754) NUCLEATED RED BLOOD CELLS 0 /100 WBC 0-0 (BEAKER) (test code = 413) NEUTROPHILS RELATIVE PERCENT 77 % (BEAKER) (test code = 429) LYMPHOCYTES RELATIVE PERCENT 15 % (BEAKER) (test code = 430) MONOCYTES RELATIVE PERCENT 6 % (BEAKER) (test code = 431) EOSINOPHILS RELATIVE PERCENT 1 % (BEAKER) (test code = 432) BASOPHILS RELATIVE PERCENT 0 % (BEAKER) (test code = 437) NEUTROPHILS ABSOLUTE COUNT 5.15 K/ L 1.56-6.13 (BEAKER) (test code = 670) LYMPHOCYTES ABSOLUTE COUNT 0.99 K/ L 1.18-3.74 L (BEAKER) (test code = 414) MONOCYTES ABSOLUTE COUNT (BEAKER) 0.42 K/ L 0.24-0.36 H (test code = 415) EOSINOPHILS ABSOLUTE COUNT 0.06 K/ L 0.04-0.36 (BEAKER) (test code = 416) BASOPHILS ABSOLUTE COUNT (BEAKER) 0.02 K/ L 0.01-0.08 (test code = 417) IMMATURE GRANULOCYTES-RELATIVE 0 % 0-1 PERCENT (BEAKER) (test code = 2801) Type and screen, [id number] 19:07:00 Test Item Value Reference Range Interpretation Comments ABO/RH AUTOMATED (BEAKER) (test A POSITIVE code = 2260) Ab Scrn (test code = 890-4) NEGATIVE [facility] CenterABORH, [id number] 18:25:00 Test Item Value Reference Range Interpretation Comments ABO Grouping (test code = 2588) A Rh Factor (test code = 2589) POS [facility] CenterTSH/Free T4 If [id number] 16:19:00 Test Item Value Reference Range Interpretation Comments TSH (test code = 3.677 0.350- 4.940 uIU/mL 63507-0) PITER (test code = PITER) Retail Shift Leader ID - EDASI Lab Interpretation (test Normal code = 67114-5) [facility] CenterVitamin B12 and [id number] 16:19:00 Test Item Value Reference Range Interpretation Comments Vitamin B12 (test code = 561 pg/mL 936-569 0054-9) Folate (test code = 10.10 ng/mL >=7.00 2284-8) PITER (test code = PITER) Retail Shift Leader ID - EDASI Lab Interpretation (test Normal code = 89908-3) [facility] CenterTSH/FREE T4 IF [id number] 16:19:00 Test Item Value Reference Range Interpretation Comments THYROID STIMULATING HORMONE 3.677 uIU/mL 0.350-4.940 (BEAKER) (test code = 772) Retail Shift Leader ID - EDASIVITAMIN B12 AND [id number] 16:19:00 Test Item Value Reference Range Interpretation Comments VITAMIN B12 (BEAKER) (test code = 561 pg/mL 213-816 774) FOLATE (BEAKER) (test code = 362) 10.10 ng/mL >=7.00 Retail Shift Leader ID - EDASITROPONIN [id number] 15:37:00 Test Item Value Reference Range Interpretation Comments TROPONIN I (BEAKER) (test code = 0.04 ng/mL 0.00-0.03 H 397) Troponin I (TnI) levels must be interpreted in the context of the presenting symptoms and the clinical findings. Elevated TnI levels indicate myocardial damage, but are not specific for ischemic heart disease. Elevated TnI levels are seen in patients with other cardiac conditions (including myocarditis and congestive heart failure), and slight TnI elevations occur in patients with other conditions, including sepsis, renal failure, acidosis, acute neurological disease, and persistent tachyarrhythmia.Retail Shift Leader ID - EDASILIPID [id number] 15:31:00 Test Item Value Reference Range Interpretation Comments TRIGLYCERIDES (BEAKER) (test code = 164 mg/dL 540) CHOLESTEROL (BEAKER) (test code = 199 mg/dL 631) HDL CHOLESTEROL (BEAKER) (test code 30 mg/dL = 976) LDL CHOLESTEROL CALCULATED (AKER) 136 mg/dL (test code = 633) Triglyceride Reference Range: Low Risk <150 Borderline 150-199 High Risk 200-499 Very High Risk >=500Cholesterol Reference Range: Low Risk <200 Borderline 200-239 High Risk >240HDL Cholesterol Reference Range: Low Risk >=60 High Risk <40LDL Cholesterol Reference Range: Optimal <100 Near Optimal 100-129 Borderline 130-159 High 160-189 Very High >=190 Retail Shift Leader ID - EDASICOMPREHENSIVE METABOLIC [id number] 15:31:00 Test Item Value Reference Range Interpretation Comments TOTAL PROTEIN 6.5 gm/dL 6.0-8.3 (BEAKER) (test code = 770) ALBUMIN (BEAKER) 3.8 g/dL 3.5-5.0 (test code = 1145) ALKALINE PHOSPHATASE 90 U/L 40-150 (BEAKER) (test code = 346) BILIRUBIN TOTAL 0.6 mg/dL 0.2-1.2 (BEAKER) (test code = 377) SODIUM (BEAKER) (test 138 meq/L 136-145 code = 381) POTASSIUM (BEAKER) 4.3 meq/L 3.5-5.1 (test code = 379) CHLORIDE (BEAKER) 104 meq/L 98-107 (test code = 382) CO2 (BEAKER) (test 25 meq/L 22-29 code = 355) BLOOD UREA NITROGEN 19 mg/dL 7-21 (BEAKER) (test code = 354) CREATININE (BEAKER) 0.82 mg/dL 0.57-1.25 (test code = 358) GLUCOSE RANDOM 94 mg/dL 70-105 (BEAKER) (test code = 652) CALCIUM (BEAKER) 8.6 mg/dL 8.4-10.2 (test code = 697) AST (SGOT) (BEAKER) 29 U/L 5-34 (test code = 353) ALT (SGPT) (BEAKER) 28 U/L 6-55 (test code = 347) EGFR (BEAKER) (test 68 mL/min/1.73 ESTIMA DREW GFR IS code = 1092) sq m NOT ACCURATE CREATININE CLEARANCE IN PREDICTING GLOMERULAR FILTRATION RATE . ESTIMATED GFR I S NOT APPLICABLE FOR DIALYSIS PATIEN TS. Retail Shift Leader ID - EDASIPT/[id number] 15:28:00 Test Item Value Reference Range Interpretation Comments Protime (test code = 13.5 11.9- 14.2 5902-2) seconds INR (test code = 1.06 <=5.90 6301-6) PTT (test code = 29.1 22.5- 36.0 65514-4) seconds PITER (test code = PITER) Effective 11/29/2018: PT Reference Range ChangeNew: 11.9-14.2 Previous: 11.7-14.7 RECOMMENDED COUMADIN/WARFARIN INR THERAPY RANGESSTANDARD DOSE: 2.0-3.0 Includes: PROPHYLAXIS for venous thrombosis, systemic embolization; TREATMENT for venous thrombosis and/or pulmonary embolus.HIGH RISK: Target INR is 2.5-3.5 for patients wiht mechanical heart valves. Lab Interpretation Normal (test code = 65397-5) [facility] CenterPT/[id number] 15:28:00 Test Item Value Reference Range Interpretation Comments PROTIME (BEAKER) (test code = 13.5 seconds 11.9-14.2 759) INR (BEAKER) (test code = 370) 1.06 <=5.90 PARTIAL THROMBOPLASTIN TIME 29.1 seconds 22.5-36.0 (BEAKER) (test code = 760) Effective 11/29/2018: PT Reference Range ChangeNew: 11.9-14.2 Previous: 11.7- 14.7RECOMMENDED COUMADIN/WARFARIN INR THERAPY RANGESSTANDARD DOSE: 2.0-3.0 Includes: PROPHYLAXIS for venous thrombosis, systemic embolization; TREATMENT for venous thrombosis and/or pulmonary embolus.HIGH RISK: Target INR is2.5-3.5 for patients wiht mechanical heart valves.CBC W/PLT COUNT & AUTO [id number] 15:11:00 Test Item Value Reference Range Interpretation Comments WHITE BLOOD CELL COUNT (BEAKER) 5.3 K/ L 3.5-10.5 (test code = 775) RED BLOOD CELL COUNT (BEAKER) 4.84 M/ L 3.93-5.22 (test code = 761) HEMOGLOBIN (BEAKER) (test code = 13.8 GM/DL 11.2-15.7 410) HEMATOCRIT (BEAKER) (test code = 41.7 % 34.1-44.9 411) MEAN CORPUSCULAR VOLUME (BEAKER) 86.2 fL 79.4-94.8 (test code = 753) MEAN CORPUSCULAR HEMOGLOBIN 28.5 pg 25.6-32.2 (BEAKER) (test code = 751) MEAN CORPUSCULAR HEMOGLOBIN CONC 33.1 GM/DL 32.2-35.5 (BEAKER) (test code = 752) RED CELL DISTRIBUTION WIDTH 15.1 % 11.7-14.4 H (BEAKER) (test code = 412) PLATELET COUNT (BEAKER) (test 218 K/CU MM 150-450 code = 756) MEAN PLATELET VOLUME (BEAKER) 12.2 fL 9.4-12.3 (test code = 754) NUCLEATED RED BLOOD CELLS 0 /100 WBC 0-0 (BEAKER) (test code = 413) NEUTROPHILS RELATIVE PERCENT 66 % (BEAKER) (test code = 429) LYMPHOCYTES RELATIVE PERCENT 19 % (BEAKER) (test code = 430) MONOCYTES RELATIVE PERCENT 11 % (BEAKER) (test code = 431) EOSINOPHILS RELATIVE PERCENT 4 % (BEAKER) (test code = 432) BASOPHILS RELATIVE PERCENT 1 % (BEAKER) (test code = 437) NEUTROPHILS ABSOLUTE COUNT 3.50 K/ L 1.56-6.13 (BEAKER) (test code = 670) LYMPHOCYTES ABSOLUTE COUNT 1.00 K/ L 1.18-3.74 L (BEAKER) (test code = 414) MONOCYTES ABSOLUTE COUNT (BEAKER) 0.57 K/ L 0.24-0.36 H (test code = 415) EOSINOPHILS ABSOLUTE COUNT 0.22 K/ L 0.04-0.36 (BEAKER) (test code = 416) BASOPHILS ABSOLUTE COUNT (BEAKER) 0.03 K/ L 0.01-0.08 (test code = 417) IMMATURE GRANULOCYTES-RELATIVE 0 % 0-1 PERCENT (BEAKER) (test code = 2528)
[2020-03-03] MEDS ORDERED: MAGNES/ALUMIN/SIMET 30ML UCUP PO PRN (20:38)
[2020-03-03] MEDS ORDERED: DIPHENHYDRAMINE 25 MG TAB/CAP PO PRN (20:38)
[2020-03-03 20:54] LABS: Urine Appearance CLOUDY; Urine Blood TRACE (NEG); Urine Color YELLOW; Urine Glucose NEGATIVE (NEG); Urine Protein TRACE (NEG)
[2020-03-03 20:57] LABS: Urine Bilirubin 1+ (NEG)
[2020-03-03] MEDS ORDERED: LATANOPROST 0.005% 2.5ML OPTH OPTH SCH (21:00)
[2020-03-03 21:05] LABS: Urine Bacteria <20 /HPF (<20); Urine Culture Reflex Order NOT NEEDED; Urine Mucus 2+ /HPF (NONE SEEN)
[2020-03-03] MEDS: HYDROCODONE/APAP 5/325 MG TAB PO PRN (21:43)
[2020-03-03] MEDS: ATORVASTATIN 80 MG TAB PO SCH (21:43)
[2020-03-04] MEDS: METOPROLOL TAR 25 MG TAB PO SCH ×2 (05:09→17:43)
[2020-03-04] MEDS: HYDROCODONE/APAP 5/325 MG TAB PO PRN ×3 (05:13→21:01)
[2020-03-04 06:31] LABS: Absolute Lymphocytes (CBC) 0.8 K/uL (0.7-4.9); Basophils % 0.7 % (0-1.3); Lymphocytes % 11.1 % (15.3-44.8); MPV 9.5 fL (7.6-11.3); RBC Red Blood Cell Count 5.14 M/uL (3.86-4.86)
[2020-03-04 06:45] LABS: Albumin 2.5 g/dL (3.4-5.0); Magnesium 2.5 mg/dL (1.8-2.4); Potassium 3.7 mmol/L (3.5-5.1); Prealbumin 7.8 mg/dL (20-40)
[2020-03-04] MEDS: PANTOPRAZOLE 40MG TABLET PO SCH (07:13)
[2020-03-04] MEDS: ASPIRIN 81 MG CHEWABLE TABLET PO SCH ×2 (08:00→13:42)
[2020-03-04] MEDS ORDERED: TIMOLOL MALEATE 0.5% OPTH 5 ML BTL EACH EYE SCH (08:00)
[2020-03-04] MEDS ORDERED: DORZOLAMIDE 2% OPTH (10 ML) EACH EYE SCH (08:00)
[2020-03-04] MEDS: APIXABAN 5 MG TABLET PO SCH ×2 (09:12→21:02)
[2020-03-04] MEDS: LOSARTAN POTASSIUM 50 MG TABLET PO SCH (12:48)
[2020-03-04] MEDS: HYDROCORTISONE 1 % CREAM 30GM TOP PRN (16:00)
--- NOTE | 2020-03-04 17:24 | R.HP ---
HISTORY AND PHYSICAL FACILITY: [facility] ENCOUNTER DATE AND TIME: 03/04/2020 17:09 (CDT) MR#: [id number] NAME JOSE YANG ADDRESS: [address] [place] [address] CITY: [place] [address]IP [id number] PHONE: DATE OF : 1945 AGE: 74 SSN# [id number] GENDER: Female DEXTERITY Right-handed MARITAL STATUS RACE Unknown race PRE-HOSPITAL LIVING SETTING 01 - Home (private home/apt. board/care, assisted living, fci, transitional living) PRE-HOSPITAL LIVING WITH Family/Relatives ENCOUNTER PHYSICIAN: Dr. Veto Truong M.D. REFERRING DOCTOR: DIANNE CALABRESE MD DATE OF ADMISSION: 03/03/2020 17:05 (CDT) REFERRING FACILITY [facility] HOME TYPE AND DETAILS: Type of home: single family house # of levels in the residence: 1 # of steps within the residence: 0 # of steps to enter the residence: 0 ONSET DATE: 02/24/2020 PRIMARY DIAGNOSIS-RELATED SURGERIES: No surgeries related to the primary diagnosis were performed. HISTORY OF PRESENT ILLNESS (HPI): Currently, she has deficits of Locomotion, Balance, Social Cognition, Transfers Control, Sphincter Co ntrol, Self-Care, and Communication. On 02/24/2020 Pt. presented to [facility] with sudden onset of left-side weakness. On 02/24/2020 she was admitted to [facility] with diagnosis Right CVA. Her impairment category is Stroke 01 - Left Body (Right Brain) (01.1). Pre-morbidly, Pt. was independent/mod-I in Locomotion, Safety Awareness, Self-Care, Communication, an d Transfers Control; and she had good Balance, Endurance, and Sphincter Control. Pt. is now referred to [facility] for acute in-patient rehabilitation in order to maximize patient's functional independence in activities of daily living, strength, ROM, and mobi lity. Pt. is a 74 yo Right-handed female of unknown race. Patient has realistic goal of being discharged at assistance level 6-Andrew to reside at Home with Fam thomas/Relatives. MEDICATION ALLERGIES: No Known Drug Allergies (NKDA) ENVIRONMENTAL ALLERGIES: - Substance Allergies None Known - Other Allergies PENICILLIN SULFA ( ANTIBIOTICS) CORTICOSTEROIDS ( GLUCOCORTICOIDS) PAST MEDICAL HISTORY: CORONARY ARTERY DISEASE GLAUCOMA HYPERTENSION IA ( MYOCARDIAL INFARCTION ) ( [facility]LY [facility]) PAD ( PERIPHERAL ARTERY DISEASE) (FORM[facility]) PAST SURGICAL HISTORY: AMPUTATION ( B/I TOES) APPENDECTOMY SOCIAL HISTORY: - Home Living Family/Relatives REVIEW OF SYSTEMS: - Gen No Chills Fatigue No Fever - Eyes No Double Vision No itchiness - ENMT No Difficulty Swallowing - CVS No Chest Discomfort No Chest Pain Fatigue No Weight Gain - Resp No Cough No Shortness of Breath - GI Continent No Abdominal Pain No Constipation No Diarrhea - Continent No Kidney Pain No Painful Urination No Urinary Urgency - MSK No Joint Pain Muscle Cramps Stiffness - Skin No Itching No Rash No Suspicious Lesions - Neuro Coordination Difficulty Difficulty with Concentration No Memory Loss No Seizures Weakness - Psych No Anxiety No Depression No HIV Exposure No Persistent Infections No Seasonal Allergies - Endo No Cold/Heat Intolerance No Excessive Hunger No Excessive Thirst No Excessive Urination PHYSICAL EXAM - Gen Alert and awake Lying in bed No apparent distress Oriented to: person, time, and place - Skin No skin breakdown. No abnormalities - Eyes No abnormalities - ENMT No abnormalities - Neck No abnormalities - CVS RRR - Chest No abnormalities - Resp Clear to auscultation - Abd Soft - GI Non distended Deferred - No abnormalities - Ext No significant edema - MSK 4+/5 weakness in left upper and lower extremity - Neuro 4/5 strength left upper and lower extremities. - Psych No abnormalities VITAL SIGNS Temperature: 97.67 F SBP/DBP: 133/66 Pulse: 62 Resp: 16 NURSING: - Shower allowing shower - Bladder care per protocol - Skin care per protocol PRECAUTIONS: - Weight Bearing Precaution WBAT left LE ACTIVITIES OOB only with supervision QI SCORES: - Self-Care A. Eating 05-Setup or clean-up assistance B. Oral hygiene 03-Partial/moderate assistance C. Toileting hygiene 88-Not attempted due to medical condition or safety concerns E. Shower/bathe self 02-Substantial/maximal assistance F. Upper body dressing 02-Substantial/maximal assistance G. Lower body dressing 02-Substantial/maximal assistance H. Putting on/taking off footwear 02-Substantial/maximal assistance - Mobility M. 1 step (curb) 88-Not attempted due to medical condition or safety concerns N. 4 steps 88-Not attempted due to medical condition or safety concerns O. 12 steps 88-Not attempted due to medical condition or safety concerns P. Picking up object 88-Not attempted due to medical condition or safety concerns R. Wheel 50 feet with two turns 88-Not attempted due to medical condition or safety concerns A. Roll left and right 02-Substantial/maximal assistance B. Sit to lying 03-Partial/moderate assistance C. Lying to sitting on side of bed 03-Partial/moderate assistance D. Sit to stand 02-Substantial/maximal assistance E. Chair/phm-na-vkdlw transfer 02-Substantial/maximal assistance F. Toilet transfer 88-Not attempted due to medical condition or safety concerns G. Car transfer 88-Not attempted due to medical condition or safety concerns I. Walk 10 feet 88-Not attempted due to medical condition or safety concerns J. Walk 50 feet with two turns 88-Not attempted due to medical condition or safety concerns K. Walk 150 feet 88-Not attempted due to medical condition or safety concerns L. Walking 10 feet on uneven surfaces 88-Not attempted due to medical condition or safety concerns S. Wheel 150 feet 88-Not attempted due to medical condition or safety concerns - Bladder and Bowel Bladder continence Bowel continence - Endurance Fair - Balance Poor - Safety Awareness Fair CURRENT FUNC. DEFICITS: Endurance, Balance, Mobility, Safety Awareness, and Self-Care MEDICATIONS: - Other See attached MAR (Medication Administration Record) ASSESSMENT: Currently, she has deficits of Locomotion, Balance, Social Cognition, Transfers Control, Sphincter Co ntrol, Self-Care, and Communication.On 02/24/2020 Pt. presented to [facility] with sudden onset of left-side weakness.On 02/24/2020 she was admitted to [facility] with diagnosis Right CVA.He r impairment category is Stroke 01 - Left Body (Right Brain) (01.1).Pt. is now referred to [facility] for acute in-patient rehabilitation in order to maximize patient's functiona l independence in activities of daily living, strength, ROM, and mobility.- Rehab Goal Patient has realistic goal of being discharged at assistance level 6-Andrew to reside at Home with Fam thomas/Relatives. for Dementia, TBI, Stroke, or others - Physical Therapy Gait dysfunction - to improve, our physical therapists will perform initial evaluation of pt's status upon admission and devise an individualized program for Gait Training, and Wheel Chair mobility Inability to transfer - to improve, our physical therapists will perform initial evaluation of pt's s tatus upon admission and devise an individualized program for Bed mobility Need for home safety evaluation - to improve, our physical therapists will perform initial evaluation of pt's status upon admission and devise an individualized program for Home Evaluation Need in caregiver upon discharge - to improve, our physical therapists will perform initial evaluatio n of pt's status upon admission and devise an individualized program for Caregiver Training Edema - to improve, our physical therapists will perform initial evaluation of pt's status upon admi ssion and devise an individualized program for Elevation Training, and Lymphedema Therapy New precaution - to improve, our physical therapists will perform initial evaluation of pt's status u elfego admission and devise an individualized program for Patient precaution education Poor balance - to improve, our physical therapists will perform initial evaluation of pt's status upo n admission and devise an individualized program for Balance Training Weakness - to improve, our physical therapists will perform initial evaluation of pt's status upon ad mission and devise an individualized program for Aquatic Therapy, Neuromuscular Reeducation, and Stre ngthening Achieving independence - to improve, our physical therapists will perform initial evaluation of pt's status upon admission and devise an individualized program for Community Reintegration Activities - Occupational Therapy ADL deficits - to improve, our occupation therapists will perform initial evaluation of pt's status u elfego admission and devise an individualized program for Bathing, Bed mobility, Community Reintegration , Cooking, Dressing, Eating, Fine Motor Skills, Grooming, Homemaking, Kitchen Mobility, Laundry, Latasha ent Education, Safety Awareness, Splinting - Positioning, Transfers(Toilet, Tub, Shower), and Wheel C hair Management Cognitive deficits - to improve, our occupation therapists will perform initial evaluation of pt's st atus upon admission and devise an individualized program for Cognition - orientation Need for hiv/aids care nurse - to improve, our occupation therapists will perform initial evaluation of pt's s tatus upon admission and devise an individualized program for Caregiver Training Weakness - to improve, our occupation therapists will perform initial evaluation of pt's status upon admission and devise an individualized program for Aquatic Therapy, Balance, Endurance, UE ROM, and U E strengthening MEDICAL PLAN: - Diet Type Regular - Diet - Liquid Texture Regular - Tube Feed N/A - Bladder care per protocol - Weight Bearing Precaution WBAT LE - Skin care per protocol - Other See attached MAR (Medication Administration Record) - Diet - Solid Texture Regular - Shower shower DISCHARGE PLAN: - Estimated Length of Stay (days) 17. - Consensus on plan Discharge plan has been discussed with primary caregiver. Patient/Family is in agreement with the alivia n. Primary caregiver is in agreement with the plan. - Patient/Family Goals Return home independently. - Planned Living Setting Upon Discharge Home, to live with Family/Relatives. Transitional Living. SIGNATURE PANEL: (CDT)
--- NOTE | 2020-03-04 17:25 | PAPE ---
POST ADMISSION PHYSICIAN EVALUATION PATIENT: [facility] MR# [id number] REFERRING DOCTOR DIANNE CALABRESE MD EVALUATION DATE AND TIME 03/04/2020 17:23 (CDT) NAME JOSE YANG DATE OF 1945 AGE 74 PHONE N# [id number] GENDER female EVALUATING PHYSICIAN Dr. Veto Truong M.D. ADMISSION DIAGNOSIS: Right CVA ONSET DATE 02/24/2020 POST-ADMISSION FUNCTIONAL/MEDICAL STATUS: - Bladder Same accident frequency: Ind - No accidents in the past 7 days - Bowel Same accident frequency: Ind - No accidents in the past 7 days - Walking Same score based on distance walked: 0(N/A) - Wheelchair Same score based on distance traveled: 0(N/A) STATUS CHANGE EVALUATION: No change in Functional or Medical Status is identified compared with Pre-Admission screening. PATIENT NEEDS CLOSE MEDICAL SUPERVISION BY A REHABILITATION PHYSICIAN FOR: Coordination of Treatment Team PATIENT REQUIRES 24X7 REHAB NURSING FOR MEDICAL AND FUNCTIONAL MGT. OF THE FOLLOWING DEFICITS: Disease Management Medication Management Patient/Family Education Providing Safe Environment PATIENT REQUIRES INTENSIVE, COORDINATED INTERDISCIPLINARY APPROACH TO REHAB: Arranging Home Equipment/Services Discharge Planning Family Intervention/Training Batch Operator/Case Management LIST OF IDENTIFIED AND POTENTIAL PROBLEMS: Alteration in leisure activities Bladder, Incontinence Bowel, Incontinence Infection, Actual or Potential Mobility Impaired Pain, Alteration in Comfort Self Care Deficit Skin Integrity, Actual or Potential Urinary Tract Infection (UTI), Actual or Potential PATIENT COULD BE AT RISK FOR COMPLICATIONS FROM ADVERSE MEDICAL CONDITIONS DUE TO HIS/HER COMORBIDITI ES AND THE RIGORS OF THE INTENSIVE REHABILLITATION PROGRAM. METHODS OR INTERVENTIONS TO AVOID COMPLIC ATIONS INCLUDE: - Bleeding Stroke patients assessed for lethargy or change in status. - Infection Clinical staff to assess and manage the signs and symptoms of infection including fever, redness, war mth, etc. - Urinary Tract Infection - Aspiration Clinical staff will assess and manage coughing, drooling, congestion. - Falls Patient will be evaluated for Fall Precautions and will be placed on Fall Precautions as indicated pe r protocol. - Skin Breakdown Nursing will assess skin daily using assessment tool and will place on Skin Breakdown Precautions as indicated per protocol. - Pain Clinical staff may employ non-medication methods such as massage, distraction, decrease stimulus, etc . as needed. Clinical staff will assess patient's pain level every shift per protocol to assess and e nsure pain management effectiveness. Medications will be given and the pain level re-assessed. PRELIMINARY PLAN OF CARE: - Physical Therapy Patient needs Physical Therapy for a daily minimum of 1.5 hours at least 5 out of 7 days, to improve: Mobility, Strengthening, Transfers, Stretching, ROM, Endurance, Ability to manage stairs, Gait, and Balance. - Speech Therapy Patient needs Speech Therapy for a daily minimum of 0.5 hours at least 5 out of 7 days, to improve: S wallowing, Cognition, Language Skills, and Compensatory Strategies. - Rehabilitation Nursing Patient requires 24x7 Rehabilitation Nursing for: Pain Issues, Identifying and preventing risk factor s, Monitoring and reporting current medical conditions, Assisting with ambulation and transfer, Rajni ting with all ADL-s, Teaching patients about disease process and medications, Family teaching, Provid ing safe environment, Bowel and Bladder Issues, Skin Integrity, and Medication Management. Patient needs Batch Operator and/or Case Management for: Discharge Planning, Arranging Home Equipmen t or Services, and Family Interventions. - Dietary and Nutrition Services Patient needs Dietary and Nutrition Services for: Adequate Nutrition, Nutritional Supplements, and Nu tritional Education. - Occupational Therapy Patient needs Occupational Therapy for a daily minimum of 1.5 hours at least 5 out of 7 days, to impr ove Activities of Daily Living, including: Eating, Grooming, Bathing, Dressing, Toileting, Toilet Tra nsfers, Community Reintegration, Higher functional activities, Adaptive Equipment, Splinting, Househo ld Tasks, and Other activities as determined. QI SCORES: - Self-Care A. Eating 05-Setup or clean-up assistance B. Oral hygiene 03-Partial/moderate assistance C. Toileting hygiene 88-Not attempted due to medical condition or safety concerns E. Shower/bathe self 02-Substantial/maximal assistance F. Upper body dressing 02-Substantial/maximal assistance G. Lower body dressing 02-Substantial/maximal assistance H. Putting on/taking off footwear 02-Substantial/maximal assistance - Mobility M. 1 step (curb) 88-Not attempted due to medical condition or safety concerns N. 4 steps 88-Not attempted due to medical condition or safety concerns O. 12 steps 88-Not attempted due to medical condition or safety concerns P. Picking up object 88-Not attempted due to medical condition or safety concerns R. Wheel 50 feet with two turns 88-Not attempted due to medical condition or safety concerns A. Roll left and right 02-Substantial/maximal assistance B. Sit to lying 03-Partial/moderate assistance C. Lying to sitting on side of bed 03-Partial/moderate assistance D. Sit to stand 02-Substantial/maximal assistance E. Chair/ytu-bw-omlye transfer 02-Substantial/maximal assistance F. Toilet transfer 88-Not attempted due to medical condition or safety concerns G. Car transfer 88-Not attempted due to medical condition or safety concerns I. Walk 10 feet 88-Not attempted due to medical condition or safety concerns J. Walk 50 feet with two turns 88-Not attempted due to medical condition or safety concerns K. Walk 150 feet 88-Not attempted due to medical condition or safety concerns L. Walking 10 feet on uneven surfaces 88-Not attempted due to medical condition or safety concerns S. Wheel 150 feet 88-Not attempted due to medical condition or safety concerns - Bladder and Bowel Bladder continence Bowel continence - Endurance Fair - Balance Poor - Safety Awareness Fair POTENTIAL FUNCTIONAL GOALS FOR PATIENT TO ACHIEVE BY DISCHARGE: - Safety Precaution Patient will remain free from falls or injury at time of discharge. - Bed Mobility Patient will perform bed mobility at 4-Marianela level of assistance. - Transfers Patient will complete transfers from bed to chair at 4-Marianela level of assistance. - Mobility Patient will ambulate 150 ft with 4-Marianela level of assistance with RW. PATIENT REHAB POTENTIAL Wilbert YANG is able and expected to receive 3 hours of individualized therapy daily on at least 5 o f every 7 days Wilbert YANG's prognosis for significant practical improvement within a reasonable period of time ap pears Good Expected level of measurable improvement will be of a practical value to Wilbert YANG's functional c apacity or adaptations to impairments Has a viable Discharge Plan Medically appropriate; condition is sufficiently stable to participate in intensive rehab program DISCHARGE PLAN: - Estimated Length of Stay (days) 17. - Consensus on plan Discharge plan has been discussed with primary caregiver. Patient/Family is in agreement with the alivia n. Primary caregiver is in agreement with the plan. - Patient/Family Goals Return home independently. - Planned Living Setting Upon Discharge Home, to live with Family/Relatives. Transitional Living. CONCLUSION ON REHABILITATION NECESSITY: I have evaluated patient's pre-admission functional status and, comparing it to the patient's post-ad mission functional status now, I conclude that the pre-admission assessment was accurate. Patient's c ondition on admission supports the medical necessity of admission to [facility]. It is safe to proceed with patient's therapy program. SIGNATURE PANEL: (CDT)
[2020-03-04] MEDS: TIMOLOL OPTH SCH (21:01)
[2020-03-04] MEDS: LATANOPROST OPTH SCH (21:01)
[2020-03-04] MEDS: DORZOLAMIDE OPTH SCH (21:01)
[2020-03-04] MEDS: ATORVASTATIN 80 MG TAB PO SCH (21:02)
[2020-03-05] MEDS: METOPROLOL TAR 25 MG TAB PO SCH ×2 (05:18→17:35)
[2020-03-05] MEDS: PANTOPRAZOLE 40MG TABLET PO SCH (06:32)
[2020-03-05] MEDS: HYDROCODONE/APAP 5/325 MG TAB PO PRN ×3 (08:02→20:12)
[2020-03-05] MEDS: LOSARTAN POTASSIUM 50 MG TABLET PO SCH (08:03)
[2020-03-05] MEDS: DORZOLAMIDE OPTH SCH ×2 (08:03→20:14)
[2020-03-05] MEDS: APIXABAN 5 MG TABLET PO SCH ×2 (08:03→20:12)
[2020-03-05] MEDS: ASPIRIN 81 MG CHEWABLE TABLET PO SCH (08:03)
[2020-03-05] MEDS: TIMOLOL OPTH SCH ×2 (08:03→20:14)
--- NOTE | 2020-03-05 18:02 | R.PN ---
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 Pt denied any Shortness of Breath. Prealbumin is very low at 7.8. Will start promod. Bed mobility done with moderate assistance. Perform ed [id number]-ka-[id number] exercises in the parallel bars with moderate assistance. Not yet ambulating with a wa lker. VITAL SIGNS Temperature: 98.7 F SBP/DBP: 169/80 Pulse: 73 Resp: 15 MEDICATION ALLERGIES: No Known Drug Allergies (NKDA) ENVIRONMENTAL ALLERGIES: - Substance Allergies None Known - Other Allergies PENICILLIN SULFA ( ANTIBIOTICS) CORTICOSTEROIDS ( GLUCOCORTICOIDS) NURSING: - Shower allowing shower - Bladder care per protocol - Skin care per protocol PRECAUTIONS: - Weight Bearing Precaution WBAT left LE ACTIVITIES OOB only with supervision THERAPIES: - Occupational Therapy Cognitive Retraining. Visual Perceptual Training. - Dietary and Nutrition Adequate Nutrition. Nutritional Education. Nutritional Supplements. - Speech Therapy Cognitive Training. Expressive Language Skills. Memory Strategies. Receptive Language Skills. Speech Intelligibility Training. PHYSICAL EXAM - Gen Alert and awake Lying in bed No apparent distress Oriented to: person, time, and place - Skin No skin breakdown. No abnormalities - Eyes No abnormalities - ENMT No abnormalities - Neck No abnormalities - CVS RRR - Chest No abnormalities - Resp Clear to auscultation - Abd Soft - GI Non distended Deferred - No abnormalities - Ext No significant edema - MSK 4+/5 weakness in left upper and lower extremity - Neuro 4/5 strength left upper and lower extremities. - Psych No abnormalities ASSESSMENT: Currently, she has deficits of Locomotion, Balance, Social Cognition, Transfers Control, Sphincter Co ntrol, Self-Care, and Communication.On 02/24/2020 Pt. presented to [facility] with sudden onset of left-side weakness.On 02/24/2020 she was admitted to [facility] with diagnosis Right CVA.He r impairment category is Stroke 01 - Left Body (Right Brain) (01.1).Pt. is now referred to [facility] for acute in-patient rehabilitation in order to maximize patient's functiona l independence in activities of daily living, strength, ROM, and mobility.Pre-morbidly, Pt. was indep endent/mod-I in Locomotion, Safety Awareness, Self-Care, Communication, and Transfers Control; and sh e had good Balance, Endurance, and Sphincter Control.Pt. is a 74 yo Right-handed female of unknown ra ce.- Rehab Goal Patient has realistic goal of being discharged at assistance level 6-Andrew to reside at Home with Fam thomas/Relatives. MDM/PLAN: - Physical Therapy Achieving independence - to improve, our physical therapists will perform initial evaluation of pt's status upon admission and devise an individualized program for Community Reintegration Activities Edema - to improve, our physical therapists will perform initial evaluation of pt's status upon admis kennedy and devise an individualized program for Elevation Training, and Lymphedema Therapy Gait dysfunction - to improve, our physical therapists will perform initial evaluation of pt's statu s upon admission and devise an individualized program for Gait Training, and Wheel Chair mobility Inability to transfer - to improve, our physical therapists will perform initial evaluation of pt's status upon admission and devise an individualized program for Bed mobility Need for home safety evaluation - to improve, our physical therapists will perform initial evaluatio n of pt's status upon admission and devise an individualized program for Home Evaluation Need in caregiver upon discharge - to improve, our physical therapists will perform initial evaluati on of pt's status upon admission and devise an individualized program for Caregiver Training New precaution - to improve, our physical therapists will perform initial evaluation of pt's status upon admission and devise an individualized program for Patient precaution education Poor balance - to improve, our physical therapists will perform initial evaluation of pt's status up on admission and devise an individualized program for Balance Training Weakness - to improve, our physical therapists will perform initial evaluation of pt's status upon a dmission and devise an individualized program for Aquatic Therapy, Neuromuscular Reeducation, and Str engthening - Occupational Therapy ADL deficits - to improve, our occupation therapists will perform initial evaluation of pt's status upon admission and devise an individualized program for Bathing, Bed mobility, Community Reintegratio n, Cooking, Dressing, Eating, Fine Motor Skills, Grooming, Homemaking, Kitchen Mobility, Laundry, Pat ient Education, Safety Awareness, Splinting - Positioning, Transfers(Toilet, Tub, Shower), and Wheel Chair Management Cognitive deficits - to improve, our occupation therapists will perform initial evaluation of pt's s tatus upon admission and devise an individualized program for Cognition - orientation Need for child care centre manager - to improve, our occupation therapists will perform initial evaluation of pt's status upon admission and devise an individualized program for Caregiver Training Weakness - to improve, our occupation therapists will perform initial evaluation of pt's status upon admission and devise an individualized program for Aquatic Therapy, Balance, Endurance, UE ROM, and UE strengthening - Other See attached MAR (Medication Administration Record) - Diet Type Continue Regular - Diet - Liquid Texture Continue Regular - Tube Feed Continue N/A - Bladder care per protocol - Weight Bearing Precaution WBAT left LE - Skin care per protocol - Diet - Solid Texture Continue Regular - Shower allowing shower for Dementia, TBI, Stroke, or others FUNCTIONAL STATUS: UPDATED AT WEEKLY TEAM CONFERENCE - Bladder Same accident frequency: 7-Ind - No accidents in the past 7 days - Bowel Same accident frequency: 7-Ind - No accidents in the past 7 days - Walking Same score based on distance walked: 0(N/A) - Wheelchair Same score based on distance traveled: 0(N/A) FUNCTIONAL STATUS: - Self-Care A. Eating Andrew B. Grooming Marianela C. Bathing modA D. Dressing - Upper modA E. Dressing - Lower maxA F. Toileting maxA - Sphincter Control G. Bladder control Marianela H. Bowel control Marianela - Transfers Control I. Bed/Chair/Wheelchair modA J. Toilet modA K. Tub/Shower modA - Locomotion L. Walk/Wheelchair (B) modA M. Stairs ADNO - Communication N. Comprehension (B) Marianela O. Expression (B) sup - Social Cognition P. Social Interaction sup Q. Problem Solving sup R. Memory sup - Endurance Poor - Balance Poor - Safety Awareness Poor QI SCORES: - Self-Care A. Eating 05-Setup or clean-up assistance B. Oral hygiene 03-Partial/moderate assistance C. Toileting hygiene 88-Not attempted due to medical condition or safety concerns E. Shower/bathe self 02-Substantial/maximal assistance F. Upper body dressing 02-Substantial/maximal assistance G. Lower body dressing 02-Substantial/maximal assistance H. Putting on/taking off footwear 02-Substantial/maximal assistance - Mobility M. 1 step (curb) 88-Not attempted due to medical condition or safety concerns N. 4 steps 88-Not attempted due to medical condition or safety concerns O. 12 steps 88-Not attempted due to medical condition or safety concerns P. Picking up object 88-Not attempted due to medical condition or safety concerns R. Wheel 50 feet with two turns 88-Not attempted due to medical condition or safety concerns A. Roll left and right 02-Substantial/maximal assistance B. Sit to lying 03-Partial/moderate assistance C. Lying to sitting on side of bed 03-Partial/moderate assistance D. Sit to stand 02-Substantial/maximal assistance E. Chair/ncd-mr-rpzku transfer 02-Substantial/maximal assistance F. Toilet transfer 88-Not attempted due to medical condition or safety concerns G. Car transfer 88-Not attempted due to medical condition or safety concerns I. Walk 10 feet 88-Not attempted due to medical condition or safety concerns J. Walk 50 feet with two turns 88-Not attempted due to medical condition or safety concerns K. Walk 150 feet 88-Not attempted due to medical condition or safety concerns L. Walking 10 feet on uneven surfaces 88-Not attempted due to medical condition or safety concerns S. Wheel 150 feet 88-Not attempted due to medical condition or safety concerns - Bladder and Bowel Bladder continence Bowel continence - Endurance Fair - Balance Poor - Safety Awareness Fair CURRENT [facility]. DEFICITS: Endurance, Balance, Mobility, Safety Awareness, and Self-Care SIGNATURE PANEL: (CDT)
[2020-03-05] MEDS: DOCUSATE NA/SENNA CONC 1 TAB PO PRN (20:12)
[2020-03-05] MEDS: ATORVASTATIN 80 MG TAB PO SCH (20:12)
[2020-03-05] MEDS: LATANOPROST OPTH SCH (20:13)
[2020-03-06] MEDS: HYDROCORTISONE 1 % CREAM 30GM TOP PRN ×2 (01:16→08:48)
[2020-03-06] MEDS: METOPROLOL TAR 25 MG TAB PO SCH ×2 (04:41→17:35)
[2020-03-06] MEDS: PANTOPRAZOLE 40MG TABLET PO SCH (07:20)
[2020-03-06] MEDS: APIXABAN 5 MG TABLET PO SCH ×2 (08:47→19:53)
[2020-03-06] MEDS: ASPIRIN 81 MG CHEWABLE TABLET PO SCH (08:47)
[2020-03-06] MEDS: LOSARTAN POTASSIUM 50 MG TABLET PO SCH (08:47)
[2020-03-06] MEDS: ACETAMINOPHEN 325 MG TABLET PO PRN (08:47)
[2020-03-06] MEDS: TIMOLOL OPTH SCH ×2 (08:48→19:53)
[2020-03-06] MEDS: DORZOLAMIDE OPTH SCH ×2 (08:48→19:53)
--- NOTE | 2020-03-06 17:39 | R.PN ---
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 Pt denied any Shortness of Breath. Prealbumin is very low at 7.8. Will start promod. Bed mobility done with moderate assistance. Perform ed tyt-zo-fnwam exercises in the parallel bars with moderate assistance. Ambulated 20' with moderate assistance using a rolling walker. VITAL SIGNS Temperature: 98.5 F SBP/DBP: 155/75 Pulse: 83 Resp: 16 MEDICATION ALLERGIES: No Known Drug Allergies (NKDA) ENVIRONMENTAL ALLERGIES: - Substance Allergies None Known - Other Allergies PENICILLIN SULFA ( ANTIBIOTICS) CORTICOSTEROIDS ( GLUCOCORTICOIDS) NURSING: - Shower allowing shower - Bladder care per protocol - Skin care per protocol PRECAUTIONS: - Weight Bearing Precaution WBAT left LE ACTIVITIES OOB only with supervision THERAPIES: - Occupational Therapy Cognitive Retraining. Visual Perceptual Training. - Dietary and Nutrition Adequate Nutrition. Nutritional Education. Nutritional Supplements. - Speech Therapy Cognitive Training. Expressive Language Skills. Memory Strategies. Receptive Language Skills. Speech Intelligibility Training. PHYSICAL EXAM - Gen Alert and awake Lying in bed No apparent distress Oriented to: person, time, and place - Skin No skin breakdown. No abnormalities - Eyes No abnormalities - ENMT No abnormalities - Neck No abnormalities - CVS RRR - Chest No abnormalities - Resp Clear to auscultation - Abd Soft - GI Non distended Deferred - No abnormalities - Ext No significant edema - MSK 4+/5 weakness in left upper and lower extremity - Neuro 4/5 strength left upper and lower extremities. - Psych No abnormalities ASSESSMENT: Currently, she has deficits of Locomotion, Balance, Social Cognition, Transfers Control, Sphincter Co ntrol, Self-Care, and Communication.On 02/24/2020 Pt. presented to [facility] with sudden onset of left-side weakness.On 02/24/2020 she was admitted to [facility] with diagnosis Right CVA.He r impairment category is Stroke 01 - Left Body (Right Brain) (01.1).Pt. is now referred to [facility] for acute in-patient rehabilitation in order to maximize patient's functiona l independence in activities of daily living, strength, ROM, and mobility.Pre-morbidly, Pt. was indep endent/mod-I in Locomotion, Safety Awareness, Self-Care, Communication, and Transfers Control; and sh e had good Balance, Endurance, and Sphincter Control.Pt. is a 74 yo Right-handed female of unknown ra ce.- Rehab Goal Patient has realistic goal of being discharged at assistance level 6-Andrew to reside at Home with Fam thomas/Relatives. MDM/PLAN: - Physical Therapy Achieving independence - to improve, our physical therapists will perform initial evaluation of pt's status upon admission and devise an individualized program for Community Reintegration Activities Edema - to improve, our physical therapists will perform initial evaluation of pt's status upon admi ssion and devise an individualized program for Elevation Training, and Lymphedema Therapy Gait dysfunction - to improve, our physical therapists will perform initial evaluation of pt's statu s upon admission and devise an individualized program for Gait Training, and Wheel Chair mobility Inability to transfer - to improve, our physical therapists will perform initial evaluation of pt's status upon admission and devise an individualized program for Bed mobility Need for home safety evaluation - to improve, our physical therapists will perform initial evaluatio n of pt's status upon admission and devise an individualized program for Home Evaluation Need in caregiver upon discharge - to improve, our physical therapists will perform initial evaluati on of pt's status upon admission and devise an individualized program for Caregiver Training New precaution - to improve, our physical therapists will perform initial evaluation of pt's status upon admission and devise an individualized program for Patient precaution education Poor balance - to improve, our physical therapists will perform initial evaluation of pt's status up on admission and devise an individualized program for Balance Training Weakness - to improve, our physical therapists will perform initial evaluation of pt's status upon a dmission and devise an individualized program for Aquatic Therapy, Neuromuscular Reeducation, and Str engthening - Occupational Therapy ADL deficits - to improve, our occupation therapists will perform initial evaluation of pt's status upon admission and devise an individualized program for Bathing, Bed mobility, Community Reintegratio n, Cooking, Dressing, Eating, Fine Motor Skills, Grooming, Homemaking, Kitchen Mobility, Laundry, Pat ient Education, Safety Awareness, Splinting - Positioning, Transfers(Toilet, Tub, Shower), and Wheel Chair Management Cognitive deficits - to improve, our occupation therapists will perform initial evaluation of pt's s tatus upon admission and devise an individualized program for Cognition - orientation Need for elderly caregiver - to improve, our occupation therapists will perform initial evaluation of pt's status upon admission and devise an individualized program for Caregiver Training Weakness - to improve, our occupation therapists will perform initial evaluation of pt's status upon admission and devise an individualized program for Aquatic Therapy, Balance, Endurance, UE ROM, and UE strengthening - Other See attached MAR (Medication Administration Record) - Diet Type Continue Regular - Diet - Liquid Texture Continue Regular - Tube Feed Continue N/A - Bladder care per protocol - Weight Bearing Precaution WBAT left LE - Skin care per protocol - Diet - Solid Texture Continue Regular - Shower allowing shower for Dementia, TBI, Stroke, or others FUNCTIONAL STATUS: UPDATED AT WEEKLY TEAM CONFERENCE - Bladder Same accident frequency: 7-Ind - No accidents in the past 7 days - Bowel Same accident frequency: 7-Ind - No accidents in the past 7 days - Walking Same score based on distance walked: 0(N/A) - Wheelchair Same score based on distance traveled: 0(N/A) FUNCTIONAL STATUS: - Self-Care A. Eating Andrew B. Grooming Marianela C. Bathing modA D. Dressing - Upper modA E. Dressing - Lower maxA F. Toileting maxA - Sphincter Control G. Bladder control Marianela H. Bowel control Marianela - Transfers Control I. Bed/Chair/Wheelchair modA J. Toilet modA K. Tub/Shower modA - Locomotion L. Walk/Wheelchair (B) modA M. Stairs ADNO - Communication N. Comprehension (B) Marianela O. Expression (B) sup - Social Cognition P. Social Interaction sup Q. Problem Solving sup R. Memory sup - Endurance Poor - Balance Poor - Safety Awareness Poor QI SCORES: - Self-Care A. Eating 05-Setup or clean-up assistance B. Oral hygiene 03-Partial/moderate assistance C. Toileting hygiene 88-Not attempted due to medical condition or safety concerns E. Shower/bathe self 02-Substantial/maximal assistance F. Upper body dressing 02-Substantial/maximal assistance G. Lower body dressing 02-Substantial/maximal assistance H. Putting on/taking off footwear 02-Substantial/maximal assistance - Mobility M. 1 step (curb) 88-Not attempted due to medical condition or safety concerns N. 4 steps 88-Not attempted due to medical condition or safety concerns O. 12 steps 88-Not attempted due to medical condition or safety concerns P. Picking up object 88-Not attempted due to medical condition or safety concerns R. Wheel 50 feet with two turns 88-Not attempted due to medical condition or safety concerns A. Roll left and right 02-Substantial/maximal assistance B. Sit to lying 03-Partial/moderate assistance C. Lying to sitting on side of bed 03-Partial/moderate assistance D. Sit to stand 02-Substantial/maximal assistance E. Chair/xek-ep-lsdnv transfer 02-Substantial/maximal assistance F. Toilet transfer 88-Not attempted due to medical condition or safety concerns G. Car transfer 88-Not attempted due to medical condition or safety concerns I. Walk 10 feet 88-Not attempted due to medical condition or safety concerns J. Walk 50 feet with two turns 88-Not attempted due to medical condition or safety concerns K. Walk 150 feet 88-Not attempted due to medical condition or safety concerns L. Walking 10 feet on uneven surfaces 88-Not attempted due to medical condition or safety concerns S. Wheel 150 feet 88-Not attempted due to medical condition or safety concerns - Bladder and Bowel Bladder continence Bowel continence - Endurance Fair - Balance Poor - Safety Awareness Fair CURRENT [facility]. DEFICITS: Endurance, Balance, Mobility, Safety Awareness, and Self-Care SIGNATURE PANEL: (CDT)
[2020-03-06] MEDS: ATORVASTATIN 80 MG TAB PO SCH (19:59)
[2020-03-06] MEDS: LATANOPROST OPTH SCH (19:59)
[2020-03-06] MEDS: HYDROCODONE/APAP 5/325 MG TAB PO PRN (23:58)
[2020-03-07] MEDS: METOPROLOL TAR 25 MG TAB PO SCH ×2 (05:01→17:04)
[2020-03-07] MEDS: PANTOPRAZOLE 40MG TABLET PO SCH (06:24)
[2020-03-07] MEDS: APIXABAN 5 MG TABLET PO SCH ×2 (07:45→19:55)
[2020-03-07] MEDS: LOSARTAN POTASSIUM 50 MG TABLET PO SCH (07:45)
[2020-03-07] MEDS: ASPIRIN 81 MG CHEWABLE TABLET PO SCH (07:45)
[2020-03-07] MEDS: TIMOLOL OPTH SCH ×2 (07:46→19:54)
[2020-03-07] MEDS: DORZOLAMIDE OPTH SCH ×2 (07:46→19:54)
[2020-03-07] MEDS: ACETAMINOPHEN 325 MG TABLET PO PRN (08:42)
--- NOTE | 2020-03-07 09:28 | P.RH.PN ---
Estimated Length of Stay: 24 Expected Discharge Date: 03/26/20 Discharge Disposition Plan: Home Family Support: Yes Correction Goal: Mobility, Transfers, Self Care Vital Signs: Last Vital Signs Temp 98.9 F 03/07/20 08:45 Pulse 79 03/07/20 08:28 Resp 16 03/07/20 08:28 BP 163/79 H 03/07/20 08:28 Pulse Ox 96 03/07/20 08:28 Laboratory: Laboratory Last Values WBC 7.0 K/uL (4.3-10.9) D 03/04/20 06:14 RBC 5.14 M/uL (3.86-4.86) H 03/04/20 06:14 Hgb 14.1 g/dL (12.0-15.0) 03/04/20 06:14 Hct 42.0 % (36.0-45.0) 03/04/20 06:14 MCV 81.8 fL (80-100) 03/04/20 06:14 MCH 27.4 pg (27.0-35.0) 03/04/20 06:14 MCHC 33.5 g/dL (32.0-36.0) 03/04/20 06:14 RDW 16.3 % (12.1-15.2) H 03/04/20 06:14 Plt Count 144 K/uL (152-406) L 03/04/20 06:14 MPV 9.5 fL (7.6-11.3) 03/04/20 06:14 Neutrophils % 67.5 % (41.7-73.7) 03/04/20 06:14 Lymphocytes % 11.1 % (15.3-44.8) L 03/04/20 06:14 Monocytes % 8.2 % (3.3-12.3) 03/04/20 06:14 Eosinophils % 12.5 % (0-4.4) H 03/04/20 06:14 Basophils % 0.7 % (0-1.3) 03/04/20 06:14 Absolute Neutrophils 4.7 K/uL (1.8-8.0) 03/04/20 06:14 Absolute Lymphocytes 0.8 K/uL (0.7-4.9) 03/04/20 06:14 Absolute Monocytes 0.6 K/uL (0.1-1.3) 03/04/20 06:14 Absolute Eosinophils 0.9 K/uL (0-0.5) H 03/04/20 06:14 Absolute Basophils 0.1 K/uL (0-0.5) 03/04/20 06:14 Sodium 136 mmol/L (136-145) 03/04/20 06:14 Potassium 3.7 mmol/L (3.5-5.1) 03/04/20 06:14 Chloride 102 mmol/L (98-107) 03/04/20 06:14 Carbon Dioxide 25 mmol/L (21-32) 03/04/20 06:14 BUN 16 mg/dL (7-18) 03/04/20 06:14 Creatinine 0.89 mg/dL (0.55-1.3) 03/04/20 06:14 Estimated GFR 62 mL/min (=/>90) L 03/04/20 06:14 Glucose 92 mg/dL (74-106) 03/04/20 06:14 Calcium 8.4 mg/dL (8.5-10.1) L 03/04/20 06:14 Magnesium 2.5 mg/dL (1.8-2.4) H 03/04/20 06:14 Albumin 2.5 g/dL (3.4-5.0) L D 03/04/20 06:14 Prealbumin 7.8 mg/dL (20-40) L 03/04/20 06:14 Urine Color Yellow 03/03/20 19:30 Urine Appearance Cloudy 03/03/20 19:30 Urine pH 7.0 (5.0-7.0) 03/03/20 19:30 Ur Specific [place] 1.010 (1.005-1.030) 03/03/20 19:30 Glucose (UA)(Auto) Negative (NEG) 03/03/20 19:30 Urine Ketones Negative (NEG) 03/03/20 19:30 Urine Blood Trace (NEG) H 03/03/20 19:30 Urine Nitrite Negative (NEG) 03/03/20 19:30 Urine Bilirubin 1+ (NEG) H 03/03/20 19:30 Urine Urobilinogen 1.0 mg/dL (0.2-1.0) 03/03/20 19:30 Ur Leukocyte Esterase 1+ (NEG) H 03/03/20 19:30 Urine RBC 5-10 /HPF (NONE SEEN) H 03/03/20 19:30 Urine WBC 5-10 /HPF (<5) H 03/03/20 19:30 Ur Squamous Epith Cells 10-20 /HPF (NONE SEEN) H 03/03/20 19:30 Urine Bacteria <20 /HPF (<20) 03/03/20 19:30 Urine Mucus 2+ /HPF (NONE SEEN) 03/03/20 19:30 Urine Culture Reflexed Not needed 03/03/20 19:30 Urine Total Protein Trace (NEG) 03/03/20 19:30 SARS-CoV-2 RNA (RT-PCR) Negative (NEGATIVE) 03/03/20 19:30 Weight: 155 lb Wound Present: No Closed Surgical Incision Present: No Negative Pressure Wound Therapy Present: No Physician Update: Her prealbumin is very low at 7.8. Will start Promod and Ensure plus. She is at mimimum assistance with transfers. Walked 12' with moderate assistance. She has feartures of depression with poor energy and effort. Will start Cymbalta 20 mg daily and vitamin B12 1000 microgram daily. Summary: Patient's care plan and intermodal dispatcher goals have been reviewed and revised as necessary. Please see the Rehabilitation Signature page for all necessary signatures.
[2020-03-07] MEDS: PROMOD 30 ML DOSE PO SCH (19:55)
[2020-03-07] MEDS: DOCUSATE NA/SENNA CONC 1 TAB PO PRN (19:55)
[2020-03-07] MEDS: HYDROCODONE/APAP 5/325 MG TAB PO PRN (19:56)
[2020-03-07] MEDS: LATANOPROST OPTH SCH (20:08)
[2020-03-07] MEDS: ATORVASTATIN 80 MG TAB PO SCH (20:08)
--- NOTE | 2020-03-08 02:21 | FAST ---
[employer] FORM SHIFT START DATE/TIME: 03/07/2020 19:00 (CDT) SHIFT END DATE/TIME: 03/08/2020 07:00 (CDT) NAME JOSE YANG DATE OF : 1945 DATE OF ADMISSION: 03/03/2020 17:05 (CDT) PHONE: AGE: 74 SSN# [id number] GENDER: Female ENCOUNTER PHYSICIAN: Dr. Veto Truong M.D. ADMISSION DIAGNOSIS: - Stroke 01 - Left Body (Right Brain) (01.1) Right CVA. EATING: Not assessed/no information CODE: - ORAL HYGIENE: Not assessed/no information CODE: - TOILETING HYGIENE: TOILETING HYGIENE - STEP 1: Does the patient complete the activity by him/herself with no assistance (physical, verbal/nonverbal cueing, setup/clean-up)? No. TOILETING HYGIENE - STEP 2: Does the patient need only setup/clean-up assistance from one helper? No. TOILETING HYGIENE - STEP 3: Does the patient need only verbal/nonverbal cueing or touching/steadying/contact guard assistance fro m one helper? No. TOILETING HYGIENE - STEP 4: Does the patient need physical assistance - for example lifting or trunk support from one helper - wi th the helper providing less than half of the effort? No. TOILETING HYGIENE - STEP 5: Does the patient need physical assistance - for example lifting or trunk support from one helper - wi th the helper providing more than half of the effort? Yes. 1. [id number] ADMISSION PERFORMANCE: Substantial/maximal assistance CODE: 02 BATHING: Not assessed/no information CODE: - DRESSING - UPPER BODY: Not assessed/no information CODE: - DRESSING - LOWER BODY: Not assessed/no information CODE: - PUTTING ON/TAKING OFF FOOTWEAR: Not assessed/no information CODE: - ROLL LEFT AND RIGHT: ROLL LEFT AND RIGHT - STEP 1: Does the patient complete the activity by him/herself with no assistance (physical, verbal/nonverbal cueing, setup/clean-up)? No. ROLL LEFT AND RIGHT - STEP 2: Does the patient need only setup/clean-up assistance from one helper? No. ROLL LEFT AND RIGHT - STEP 3: Does the patient need only verbal/nonverbal cueing or touching/steadying/contact guard assistance fro m one helper? No. ROLL LEFT AND RIGHT - STEP 4: Does the patient need physical assistance - for example lifting or trunk support from one helper - wi th the helper providing less than half of the effort? Yes. 1. [id number] ADMISSION PERFORMANCE: Partial/moderate assistance CODE: 03 SIT TO LYING: SIT TO LYING - STEP 1: Does the patient complete the activity by him/herself with no assistance (physical, verbal/nonverbal cueing, setup/clean-up)? No. SIT TO LYING - STEP 2: Does the patient need only setup/clean-up assistance from one helper? No. SIT TO LYING - STEP 3: Does the patient need only verbal/nonverbal cueing or touching/steadying/contact guard assistance fro m one helper? No. SIT TO LYING - STEP 4: Does the patient need physical assistance - for example lifting or trunk support from one helper - wi th the helper providing less than half of the effort? No. SIT TO LYING - STEP 5: Does the patient need physical assistance - for example lifting or trunk support from one helper - wi th the helper providing more than half of the effort? Yes. 1. [id number] ADMISSION PERFORMANCE: Substantial/maximal assistance CODE: 02 LYING TO SITTING: LYING TO SITTING ON SIDE OF BED - STEP 1: Does the patient complete the activity by him/herself with no assistance (physical, verbal/nonverbal cueing, setup/clean-up)? No. LYING TO SITTING ON SIDE OF BED - STEP 2: Does the patient need only setup/clean-up assistance from one helper? No. LYING TO SITTING ON SIDE OF BED - STEP 3: Does the patient need only verbal/nonverbal cueing or touching/steadying/contact guard assistance fro m one helper? No. LYING TO SITTING ON SIDE OF BED - STEP 4: Does the patient need physical assistance - for example lifting or trunk support from one helper - wi th the helper providing less than half of the effort? No. LYING TO SITTING ON SIDE OF BED - STEP 5: Does the patient need physical assistance - for example lifting or trunk support from one helper - wi th the helper providing more than half of the effort? Yes. 1. [id number] ADMISSION PERFORMANCE: Substantial/maximal assistance CODE: 02 SIT TO STAND: SIT TO STAND - STEP 1: Does the patient complete the activity by him/herself with no assistance (physical, verbal/nonverbal cueing, setup/clean-up)? No. SIT TO STAND - STEP 2: Does the patient need only setup/clean-up assistance from one helper? No. SIT TO STAND - STEP 3: Does the patient need only verbal/nonverbal cueing or touching/steadying/contact guard assistance fro m one helper? No. SIT TO STAND - STEP 4: Does the patient need physical assistance - for example lifting or trunk support from one helper - wi th the helper providing less than half of the effort? No. SIT TO STAND - STEP 5: Does the patient need physical assistance - for example lifting or trunk support from one helper - wi th the helper providing more than half of the effort? Yes. 1. [id number] ADMISSION PERFORMANCE: Substantial/maximal assistance CODE: 02 TRANSFERS: BED, CHAIR: CHAIR/[id number] TRANSFER - STEP 1: Does the patient complete the activity by him/herself with no assistance (physical, verbal/nonverbal cueing, setup/clean-up)? No. CHAIR/[id number] TRANSFER - STEP 2: Does the patient need only setup/clean-up assistance from one helper? No. CHAIR/[id number] TRANSFER - STEP 3: Does the patient need only verbal/nonverbal cueing or touching/steadying/contact guard assistance fro m one helper? No. CHAIR/[id number] TRANSFER - STEP 4: Does the patient need physical assistance - for example lifting or trunk support from one helper - wi th the helper providing less than half of the effort? No. CHAIR/[id number] TRANSFER - STEP 5: Does the patient need physical assistance - for example lifting or trunk support from one helper - wi th the helper providing more than half of the effort? Yes. 1. [id number] ADMISSION PERFORMANCE: Substantial/maximal assistance CODE: 02 TRANSFER TOILET: TOILET TRANSFER - STEP 1: Does the patient complete the activity by him/herself with no assistance (physical, verbal/nonverbal cueing, setup/clean-up)? No. TOILET TRANSFER - STEP 2: Does the patient need only setup/clean-up assistance from one helper? No. TOILET TRANSFER - STEP 3: Does the patient need only verbal/nonverbal cueing or touching/steadying/contact guard assistance fro m one helper? No. TOILET TRANSFER - STEP 4: Does the patient need physical assistance - for example lifting or trunk support from one helper - wi th the helper providing less than half of the effort? No. TOILET TRANSFER - STEP 5: Does the patient need physical assistance - for example lifting or trunk support from one helper - wi th the helper providing more than half of the effort? Yes. 1. [id number] ADMISSION PERFORMANCE: Substantial/maximal assistance CODE: 02 TRANSFERS: CAR: Not assessed/no information CODE: - WALK 10 FEET: Not assessed/no information CODE: - 1 STEP (CURB): Not assessed/no information CODE: - PICKING UP OBJECT: Not assessed/no information CODE: - DOES THE PATIENT USE A WHEELCHAIR/SCOOTER? CODE: EXPR WHEEL 50 FEET WITH TWO TURNS: Not assessed/no information CODE: - INDICATE THE TYPE OF WHEELCHAIR/SCOOTER USED: CODE: EXPR WHEEL 150 FEET: Not assessed/no information CODE: - INDICATE THE TYPE OF WHEELCHAIR/SCOOTER USED: CODE: EXPR BLADDER AND BOWEL: H350. BLADDER CONTINENCE (3-DAY ASSESSMENT PERIOD): Always continent (no documented incontinence) CODE: 0 H400. BOWEL CONTINENCE (3-DAY ASSESSMENT PERIOD): Always continent CODE: 0
[2020-03-08] MEDS: METOPROLOL TAR 25 MG TAB PO SCH ×2 (05:04→17:06)
[2020-03-08] MEDS: PANTOPRAZOLE 40MG TABLET PO SCH (08:16)
[2020-03-08] MEDS: ASPIRIN 81 MG CHEWABLE TABLET PO SCH (08:17)
[2020-03-08] MEDS: DULOXETINE 20 MG CAP PO SCH (08:17)
[2020-03-08] MEDS: LOSARTAN POTASSIUM 50 MG TABLET PO SCH (08:17)
[2020-03-08] MEDS: CYANOCOBALAMIN 1,000 MCG TAB PO SCH (08:17)
[2020-03-08] MEDS: FE SULF/FA/VIT B COMP & C TAB PO SCH (08:17)
[2020-03-08] MEDS: APIXABAN 5 MG TABLET PO SCH ×2 (08:17→20:05)
[2020-03-08] MEDS: TIMOLOL OPTH SCH ×2 (08:18→20:05)
[2020-03-08] MEDS: HYDROCODONE/APAP 5/325 MG TAB PO PRN (08:18)
[2020-03-08] MEDS: DORZOLAMIDE OPTH SCH ×2 (08:18→20:05)
[2020-03-08] MEDS: ENSURE HIGH PROTEIN 237 ML CAN PO SCH (08:28)
[2020-03-08] MEDS: PROMOD 30 ML DOSE PO SCH ×2 (08:28→20:05)
[2020-03-08] MEDS ORDERED: LOPERAMIDE HCL 2 MG CAPSULE PO PRN (16:34)
[2020-03-08] MEDS: LOPERAMIDE HCL 2 MG CAPSULE PO PRN ×2 (17:04→21:08)
[2020-03-08] MEDS: ATORVASTATIN 80 MG TAB PO SCH (20:04)
[2020-03-08] MEDS: ACETAMINOPHEN 325 MG TABLET PO PRN (20:05)
[2020-03-08] MEDS: LATANOPROST OPTH SCH (20:05)
[2020-03-09] MEDS: METOPROLOL TAR 25 MG TAB PO SCH ×2 (05:00→17:00)
[2020-03-09] MEDS: PANTOPRAZOLE 40MG TABLET PO SCH (07:07)
[2020-03-09] MEDS: DORZOLAMIDE OPTH SCH ×2 (08:50→20:21)
[2020-03-09] MEDS: TIMOLOL OPTH SCH ×2 (08:50→20:21)
[2020-03-09] MEDS: FE SULF/FA/VIT B COMP & C TAB PO SCH (08:50)
[2020-03-09] MEDS: LOSARTAN POTASSIUM 50 MG TABLET PO SCH (08:51)
[2020-03-09] MEDS: ASPIRIN 81 MG CHEWABLE TABLET PO SCH (08:51)
[2020-03-09] MEDS: PROMOD 30 ML DOSE PO SCH ×2 (08:51→20:21)
[2020-03-09] MEDS: CYANOCOBALAMIN 1,000 MCG TAB PO SCH (08:51)
[2020-03-09] MEDS: APIXABAN 5 MG TABLET PO SCH ×2 (08:51→20:19)
[2020-03-09] MEDS: DULOXETINE 20 MG CAP PO SCH (08:51)
[2020-03-09] MEDS: ACETAMINOPHEN 325 MG TABLET PO PRN ×2 (08:56→20:19)
[2020-03-09] MEDS: ENSURE HIGH PROTEIN 237 ML CAN PO SCH (09:04)
[2020-03-09] MEDS: CRANBERRY FRUIT EXTRACT 200 MG CAP PO SCH (20:19)
[2020-03-09] MEDS: ATORVASTATIN 80 MG TAB PO SCH (20:19)
[2020-03-09] MEDS: LATANOPROST OPTH SCH (20:21)
[2020-03-10] MEDS: METOPROLOL TAR 25 MG TAB PO SCH ×2 (05:18→16:56)
[2020-03-10] MEDS: PANTOPRAZOLE 40MG TABLET PO SCH (06:24)
[2020-03-10] MEDS: HYDROCODONE/APAP 5/325 MG TAB PO PRN (07:59)
[2020-03-10] MEDS: CRANBERRY FRUIT EXTRACT 200 MG CAP PO SCH ×2 (08:00→20:15)
[2020-03-10] MEDS: TIMOLOL OPTH SCH ×2 (08:00→20:15)
[2020-03-10] MEDS: LOSARTAN POTASSIUM 50 MG TABLET PO SCH (08:00)
[2020-03-10] MEDS: FE SULF/FA/VIT B COMP & C TAB PO SCH (08:00)
[2020-03-10] MEDS: CYANOCOBALAMIN 1,000 MCG TAB PO SCH (08:00)
[2020-03-10] MEDS: ASPIRIN 81 MG CHEWABLE TABLET PO SCH (08:00)
[2020-03-10] MEDS: DORZOLAMIDE OPTH SCH ×2 (08:00→20:15)
[2020-03-10] MEDS: APIXABAN 5 MG TABLET PO SCH ×2 (08:01→20:16)
[2020-03-10] MEDS: DULOXETINE 20 MG CAP PO SCH (08:01)
[2020-03-10] MEDS: ENSURE HIGH PROTEIN 237 ML CAN PO SCH (08:01)
[2020-03-10] MEDS: PROMOD 30 ML DOSE PO SCH ×2 (08:35→20:16)
[2020-03-10] MEDS: ATORVASTATIN 80 MG TAB PO SCH (20:16)
[2020-03-10] MEDS: LATANOPROST OPTH SCH (20:16)
[2020-03-11] MEDS: METOPROLOL TAR 25 MG TAB PO SCH ×2 (05:07→17:09)
[2020-03-11] MEDS: PANTOPRAZOLE 40MG TABLET PO SCH (06:58)
[2020-03-11] MEDS: TIMOLOL OPTH SCH ×2 (08:18→19:31)
[2020-03-11] MEDS: DORZOLAMIDE OPTH SCH ×2 (08:18→19:31)
[2020-03-11] MEDS: CRANBERRY FRUIT EXTRACT 200 MG CAP PO SCH ×2 (08:18→19:31)
[2020-03-11] MEDS: FE SULF/FA/VIT B COMP & C TAB PO SCH (08:18)
[2020-03-11] MEDS: DULOXETINE 20 MG CAP PO SCH (08:18)
[2020-03-11] MEDS: APIXABAN 5 MG TABLET PO SCH ×2 (08:18→19:31)
[2020-03-11] MEDS: ASPIRIN 81 MG CHEWABLE TABLET PO SCH (08:20)
[2020-03-11] MEDS: CYANOCOBALAMIN 1,000 MCG TAB PO SCH (08:20)
[2020-03-11] MEDS: ACETAMINOPHEN 325 MG TABLET PO PRN (08:20)
[2020-03-11] MEDS: LOSARTAN POTASSIUM 50 MG TABLET PO SCH (08:20)
[2020-03-11] MEDS: PROMOD 30 ML DOSE PO SCH ×2 (08:21→19:32)
[2020-03-11] MEDS: ENSURE HIGH PROTEIN 237 ML CAN PO SCH (08:21)
[2020-03-11] MEDS: TRAMADOL HCL 50 MG TAB PO PRN ×2 (09:42→19:32)
--- NOTE | 2020-03-11 13:06 | FAST ---
[employer] FORM SHIFT START DATE/TIME: 03/11/2020 07:00 (CDT) SHIFT END DATE/TIME: 03/11/2020 19:00 (CDT) NAME JOSE YANG DATE OF : 1945 DATE OF ADMISSION: 03/03/2020 17:05 (CDT) PHONE: AGE: 74 SSN# [id number] GENDER: Female ENCOUNTER PHYSICIAN: Dr. Veto Truong M.D. ADMISSION DIAGNOSIS: - Stroke 01 - Left Body (Right Brain) (01.1) Right CVA. EATING: EATING - STEP 1: Does the patient complete the activity by him/herself with no assistance (physical, verbal/nonverbal cueing, setup/clean-up)? No. EATING - STEP 2: Does the patient need only setup/clean-up assistance from one helper? Yes. 1. [id number] ADMISSION PERFORMANCE: Setup or clean-up assistance CODE: 05 ORAL HYGIENE: ORAL HYGIENE - STEP 1: Does the patient complete the activity by him/herself with no assistance (physical, verbal/nonverbal cueing, setup/clean-up)? No. ORAL HYGIENE - STEP 2: Does the patient need only setup/clean-up assistance from one helper? Yes. 1. [id number] ADMISSION PERFORMANCE: Setup or clean-up assistance CODE: 05 TOILETING HYGIENE: TOILETING HYGIENE - STEP 1: Does the patient complete the activity by him/herself with no assistance (physical, verbal/nonverbal cueing, setup/clean-up)? No. TOILETING HYGIENE - STEP 2: Does the patient need only setup/clean-up assistance from one helper? No. TOILETING HYGIENE - STEP 3: Does the patient need only verbal/nonverbal cueing or touching/steadying/contact guard assistance fro m one helper? No. TOILETING HYGIENE - STEP 4: Does the patient need physical assistance - for example lifting or trunk support from one helper - wi th the helper providing less than half of the effort? Yes. 1. [id number] ADMISSION PERFORMANCE: Partial/moderate assistance CODE: 03 BATHING: Not assessed/no information CODE: - DRESSING - UPPER BODY: DRESSING - UPPER BODY - STEP 1: Does the patient complete the activity by him/herself with no assistance (physical, verbal/nonverbal cueing, setup/clean-up)? No. DRESSING - UPPER BODY - STEP 2: Does the patient need only setup/clean-up assistance from one helper? No. DRESSING - UPPER BODY - STEP 3: Does the patient need only verbal/nonverbal cueing or touching/steadying/contact guard assistance fro m one helper? No. DRESSING - UPPER BODY - STEP 4: Does the patient need physical assistance - for example lifting or trunk support from one helper - wi th the helper providing less than half of the effort? Yes. 1. [id number] ADMISSION PERFORMANCE: Partial/moderate assistance CODE: 03 DRESSING - LOWER BODY: DRESSING - LOWER BODY - STEP 1: Does the patient complete the activity by him/herself with no assistance (physical, verbal/nonverbal cueing, setup/clean-up)? No. DRESSING - LOWER BODY - STEP 2: Does the patient need only setup/clean-up assistance from one helper? No. DRESSING - LOWER BODY - STEP 3: Does the patient need only verbal/nonverbal cueing or touching/steadying/contact guard assistance fro m one helper? No. DRESSING - LOWER BODY - STEP 4: Does the patient need physical assistance - for example lifting or trunk support from one helper - wi th the helper providing less than half of the effort? Yes. 1. [id number] ADMISSION PERFORMANCE: Partial/moderate assistance CODE: 03 PUTTING ON/TAKING OFF FOOTWEAR: FOOTWEAR - STEP 1: Does the patient complete the activity by him/herself with no assistance (physical, verbal/nonverbal cueing, setup/clean-up)? No. FOOTWEAR - STEP 2: Does the patient need only setup/clean-up assistance from one helper? No. FOOTWEAR - STEP 3: Does the patient need only verbal/nonverbal cueing or touching/steadying/contact guard assistance fro m one helper? Yes. 1. [id number] ADMISSION PERFORMANCE: Supervision or touching assistance CODE: 04 ROLL LEFT AND RIGHT: ROLL LEFT AND RIGHT - STEP 1: Does the patient complete the activity by him/herself with no assistance (physical, verbal/nonverbal cueing, setup/clean-up)? No. ROLL LEFT AND RIGHT - STEP 2: Does the patient need only setup/clean-up assistance from one helper? No. ROLL LEFT AND RIGHT - STEP 3: Does the patient need only verbal/nonverbal cueing or touching/steadying/contact guard assistance fro m one helper? No. ROLL LEFT AND RIGHT - STEP 4: Does the patient need physical assistance - for example lifting or trunk support from one helper - wi th the helper providing less than half of the effort? Yes. 1. [id number] ADMISSION PERFORMANCE: Partial/moderate assistance CODE: 03 SIT TO LYING: SIT TO LYING - STEP 1: Does the patient complete the activity by him/herself with no assistance (physical, verbal/nonverbal cueing, setup/clean-up)? No. SIT TO LYING - STEP 2: Does the patient need only setup/clean-up assistance from one helper? No. SIT TO LYING - STEP 3: Does the patient need only verbal/nonverbal cueing or touching/steadying/contact guard assistance fro m one helper? No. SIT TO LYING - STEP 4: Does the patient need physical assistance - for example lifting or trunk support from one helper - wi th the helper providing less than half of the effort? Yes. 1. [id number] ADMISSION PERFORMANCE: Partial/moderate assistance CODE: 03 LYING TO SITTING: LYING TO SITTING ON SIDE OF BED - STEP 1: Does the patient complete the activity by him/herself with no assistance (physical, verbal/nonverbal cueing, setup/clean-up)? No. LYING TO SITTING ON SIDE OF BED - STEP 2: Does the patient need only setup/clean-up assistance from one helper? No. LYING TO SITTING ON SIDE OF BED - STEP 3: Does the patient need only verbal/nonverbal cueing or touching/steadying/contact guard assistance fro m one helper? No. LYING TO SITTING ON SIDE OF BED - STEP 4: Does the patient need physical assistance - for example lifting or trunk support from one helper - wi th the helper providing less than half of the effort? Yes. 1. [id number] ADMISSION PERFORMANCE: Partial/moderate assistance CODE: 03 SIT TO STAND: SIT TO STAND - STEP 1: Does the patient complete the activity by him/herself with no assistance (physical, verbal/nonverbal cueing, setup/clean-up)? No. SIT TO STAND - STEP 2: Does the patient need only setup/clean-up assistance from one helper? No. SIT TO STAND - STEP 3: Does the patient need only verbal/nonverbal cueing or touching/steadying/contact guard assistance fro m one helper? No. SIT TO STAND - STEP 4: Does the patient need physical assistance - for example lifting or trunk support from one helper - wi th the helper providing less than half of the effort? Yes. 1. [id number] ADMISSION PERFORMANCE: Partial/moderate assistance CODE: 03 TRANSFERS: BED, CHAIR: CHAIR/[id number] TRANSFER - STEP 1: Does the patient complete the activity by him/herself with no assistance (physical, verbal/nonverbal cueing, setup/clean-up)? No. CHAIR/[id number] TRANSFER - STEP 2: Does the patient need only setup/clean-up assistance from one helper? No. CHAIR/[id number] TRANSFER - STEP 3: Does the patient need only verbal/nonverbal cueing or touching/steadying/contact guard assistance fro m one helper? No. CHAIR/[id number] TRANSFER - STEP 4: Does the patient need physical assistance - for example lifting or trunk support from one helper - wi th the helper providing less than half of the effort? Yes. 1. [id number] ADMISSION PERFORMANCE: Partial/moderate assistance CODE: 03 TRANSFER TOILET: TOILET TRANSFER - STEP 1: Does the patient complete the activity by him/herself with no assistance (physical, verbal/nonverbal cueing, setup/clean-up)? No. TOILET TRANSFER - STEP 2: Does the patient need only setup/clean-up assistance from one helper? No. TOILET TRANSFER - STEP 3: Does the patient need only verbal/nonverbal cueing or touching/steadying/contact guard assistance fro m one helper? Yes. 1. [id number] ADMISSION PERFORMANCE: Supervision or touching assistance CODE: 04 TRANSFERS: CAR: Not assessed/no information CODE: - WALK 10 FEET: Not assessed/no information CODE: - 1 STEP (CURB): Not assessed/no information CODE: - PICKING UP OBJECT: Not assessed/no information CODE: - DOES THE PATIENT USE A WHEELCHAIR/SCOOTER? Q1. DOES THE PATIENT USE A WHEELCHAIR/SCOOTER?: Yes CODE: 1 WHEEL 50 FEET WITH TWO TURNS: WHEEL 50 FEET WITH TWO TURNS - STEP 1: Does the patient complete the activity by him/herself with no assistance (physical, verbal/nonverbal cueing, setup/clean-up)? No. WHEEL 50 FEET WITH TWO TURNS - STEP 2: Does the patient need only setup/clean-up assistance from one helper? No. WHEEL 50 FEET WITH TWO TURNS - STEP 3: Does the patient need only verbal/nonverbal cueing or touching/steadying/contact guard assistance fro m one helper? No. WHEEL 50 FEET WITH TWO TURNS - STEP 4: Does the patient need physical assistance - for example lifting or trunk support from one helper - wi th the helper providing less than half of the effort? Yes. 1. [id number] ADMISSION PERFORMANCE: Partial/moderate assistance CODE: 03 INDICATE THE TYPE OF WHEELCHAIR/SCOOTER USED: RR1. INDICATE THE TYPE OF WHEELCHAIR/SCOOTER USED.: Manual CODE: 1 WHEEL 150 FEET: WHEEL 150 FEET - STEP 1: Does the patient complete the activity by him/herself with no assistance (physical, verbal/nonverbal cueing, setup/clean-up)? No. WHEEL 150 FEET - STEP 2: Does the patient need only setup/clean-up assistance from one helper? No. WHEEL 150 FEET - STEP 3: Does the patient need only verbal/nonverbal cueing or touching/steadying/contact guard assistance fro m one helper? No. WHEEL 150 FEET - STEP 4: Does the patient need physical assistance - for example lifting or trunk support from one helper - wi th the helper providing less than half of the effort? Yes. 1. [id number] ADMISSION PERFORMANCE: Partial/moderate assistance CODE: 03 INDICATE THE TYPE OF WHEELCHAIR/SCOOTER USED: SS1. INDICATE THE TYPE OF WHEELCHAIR/SCOOTER USED.: Manual CODE: 1 BLADDER AND BOWEL: H350. BLADDER CONTINENCE (3-DAY ASSESSMENT PERIOD): Always continent (no documented incontinence) CODE: 0 H400. BOWEL CONTINENCE (3-DAY ASSESSMENT PERIOD): Always continent CODE: 0 SIGNATURE PANEL: The following modified sections: 1. [id number] Admission Performance, 1. [id number] Admission Performance, 1. [id number] Admission Performance, 1. [id number] Admission Performance, 1. [id number] Admission Performance, 1. [id number] Admission Performance, 1. [id number] Admission Performance, 1. [id number] Admission Performance , 1. [id number] Admission Performance, 1. [id number] Admission Performance, 1. [id number] Admission Performanc e, 1. [id number] Admission Performance, 1. [id number] Admission Performance, 1. [id number] Admission Performan ce, 1. [id number] Admission Performance, 1. [id number] Admission Performance, Q1. Does the patient use a wh eelchair/scooter?, 1. [id number] Admission Performance, RR1. Indicate the type of wheelchair/scooter use d., 1. [id number] Admission Performance, Code, SS1. Indicate the type of wheelchair/scooter used., H350. Bladder Continence (3-day assessment period), H400. Bowel Continence (3-day assessment period) were [electronically] signed by Rosa Zabala C.N.A. on TueMar 11 2020 13:04:47 T-0500 ([facility] Time)
[2020-03-11] MEDS: LIDOCAINE 4% PATCH TOP SCH (13:08)
[2020-03-11] MEDS: LATANOPROST OPTH SCH (19:31)
--- NOTE | 2020-03-11 19:55 | R.PN ---
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 Pt denied any Shortness of Breath. Prealbumin is very low at 7.8. Will start promod. Bed mobility done with moderate assistance. Perform ed [id number] exercises in the parallel bars with moderate assistance. Ambulated 43' with minimum assistance using a rolling walker. VITAL SIGNS Temperature: 98.6 F SBP/DBP: 161/78 Pulse: 73 Resp: 16 MEDICATION ALLERGIES: No Known Drug Allergies (NKDA) ENVIRONMENTAL ALLERGIES: - Substance Allergies None Known - Other Allergies PENICILLIN SULFA ( ANTIBIOTICS) CORTICOSTEROIDS ( GLUCOCORTICOIDS) NURSING: - Shower allowing shower - Bladder care per protocol - Skin care per protocol PRECAUTIONS: - Weight Bearing Precaution WBAT left LE ACTIVITIES OOB only with supervision THERAPIES: - Occupational Therapy Cognitive Retraining. Visual Perceptual Training. - Dietary and Nutrition Adequate Nutrition. Nutritional Education. Nutritional Supplements. - Speech Therapy Cognitive Training. Expressive Language Skills. Memory Strategies. Receptive Language Skills. Speech Intelligibility Training. PHYSICAL EXAM - Gen Alert and awake Lying in bed No apparent distress Oriented to: person, time, and place - Skin No skin breakdown. No abnormalities - Eyes No abnormalities - ENMT No abnormalities - Neck No abnormalities - CVS RRR - Chest No abnormalities - Resp Clear to auscultation - Abd Soft - GI Non distended Deferred - No abnormalities - Ext No significant edema - MSK 4+/5 weakness in left upper and lower extremity - Neuro 4/5 strength left upper and lower extremities. - Psych No abnormalities ASSESSMENT: Currently, she has deficits of Locomotion, Balance, Social Cognition, Transfers Control, Sphincter Co ntrol, Self-Care, and Communication.On 02/24/2020 Pt. presented to [facility] with sudden onset of left-side weakness.On 02/24/2020 she was admitted to [facility] with diagnosis Right CVA.He r impairment category is Stroke 01 - Left Body (Right Brain) (01.1).Pt. is now referred to [facility] for acute in-patient rehabilitation in order to maximize patient's functiona l independence in activities of daily living, strength, ROM, and mobility.Pre-morbidly, Pt. was indep endent/mod-I in Locomotion, Safety Awareness, Self-Care, Communication, and Transfers Control; and sh e had good Balance, Endurance, and Sphincter Control.Pt. is a 74 yo Right-handed female of unknown ra ce.- Rehab Goal Patient has realistic goal of being discharged at assistance level 6-Andrew to reside at Home with Fam thomas/Relatives. MDM/PLAN: - Physical Therapy Achieving independence - to improve, our physical therapists will perform initial evaluation of pt's status upon admission and devise an individualized program for Community Reintegration Activities Edema - to improve, our physical therapists will perform initial evaluation of pt's status upon admi ssion and devise an individualized program for Elevation Training, and Lymphedema Therapy Gait dysfunction - to improve, our physical therapists will perform initial evaluation of pt's statu s upon admission and devise an individualized program for Gait Training, and Wheel Chair mobility Inability to transfer - to improve, our physical therapists will perform initial evaluation of pt's status upon admission and devise an individualized program for Bed mobility Need for home safety evaluation - to improve, our physical therapists will perform initial evaluatio n of pt's status upon admission and devise an individualized program for Home Evaluation Need in caregiver upon discharge - to improve, our physical therapists will perform initial evaluati on of pt's status upon admission and devise an individualized program for Caregiver Training New precaution - to improve, our physical therapists will perform initial evaluation of pt's status upon admission and devise an individualized program for Patient precaution education Poor balance - to improve, our physical therapists will perform initial evaluation of pt's status up on admission and devise an individualized program for Balance Training Weakness - to improve, our physical therapists will perform initial evaluation of pt's status upon a dmission and devise an individualized program for Aquatic Therapy, Neuromuscular Reeducation, and Str engthening - Occupational Therapy ADL deficits - to improve, our occupation therapists will perform initial evaluation of pt's status upon admission and devise an individualized program for Bathing, Bed mobility, Community Reintegratio n, Cooking, Dressing, Eating, Fine Motor Skills, Grooming, Homemaking, Kitchen Mobility, Laundry, Pat ient Education, Safety Awareness, Splinting - Positioning, Transfers(Toilet, Tub, Shower), and Wheel Chair Management Cognitive deficits - to improve, our occupation therapists will perform initial evaluation of pt's s tatus upon admission and devise an individualized program for Cognition - orientation Need for resident caregiver - to improve, our occupation therapists will perform initial evaluation of pt's status upon admission and devise an individualized program for Caregiver Training Weakness - to improve, our occupation therapists will perform initial evaluation of pt's status upon admission and devise an individualized program for Aquatic Therapy, Balance, Endurance, UE ROM, and UE strengthening - Other See attached MAR (Medication Administration Record) - Diet Type Continue Regular - Diet - Liquid Texture Continue Regular - Tube Feed Continue N/A - Bladder care per protocol - Weight Bearing Precaution WBAT left LE - Skin care per protocol - Diet - Solid Texture Continue Regular - Shower allowing shower for Dementia, TBI, Stroke, or others FUNCTIONAL STATUS: UPDATED AT WEEKLY TEAM CONFERENCE - Bladder Same accident frequency: 7-Ind - No accidents in the past 7 days - Bowel Same accident frequency: 7-Ind - No accidents in the past 7 days - Walking Same score based on distance walked: 0(N/A) - Wheelchair Same score based on distance traveled: 0(N/A) FUNCTIONAL STATUS: - Self-Care A. Eating Andrew B. Grooming Marianela C. Bathing modA D. Dressing - Upper modA E. Dressing - Lower maxA F. Toileting maxA - Sphincter Control G. Bladder control Marianela H. Bowel control Marianela - Transfers Control I. Bed/Chair/Wheelchair modA J. Toilet modA K. Tub/Shower modA - Locomotion L. Walk/Wheelchair (B) modA M. Stairs ADNO - Communication N. Comprehension (B) Marianela O. Expression (B) sup - Social Cognition P. Social Interaction sup Q. Problem Solving sup R. Memory sup - Endurance Poor - Balance Poor - Safety Awareness Poor QI SCORES: - Self-Care A. Eating 05-Setup or clean-up assistance B. Oral hygiene 03-Partial/moderate assistance C. Toileting hygiene 88-Not attempted due to medical condition or safety concerns E. Shower/bathe self 02-Substantial/maximal assistance F. Upper body dressing 02-Substantial/maximal assistance G. Lower body dressing 02-Substantial/maximal assistance H. Putting on/taking off footwear 02-Substantial/maximal assistance - Mobility M. 1 step (curb) 88-Not attempted due to medical condition or safety concerns N. 4 steps 88-Not attempted due to medical condition or safety concerns O. 12 steps 88-Not attempted due to medical condition or safety concerns P. Picking up object 88-Not attempted due to medical condition or safety concerns R. Wheel 50 feet with two turns 88-Not attempted due to medical condition or safety concerns A. Roll left and right 02-Substantial/maximal assistance B. Sit to lying 03-Partial/moderate assistance C. Lying to sitting on side of bed 03-Partial/moderate assistance D. Sit to stand 02-Substantial/maximal assistance E. Chair/[id number] transfer 02-Substantial/maximal assistance F. Toilet transfer 88-Not attempted due to medical condition or safety concerns G. Car transfer 88-Not attempted due to medical condition or safety concerns I. Walk 10 feet 88-Not attempted due to medical condition or safety concerns J. Walk 50 feet with two turns 88-Not attempted due to medical condition or safety concerns K. Walk 150 feet 88-Not attempted due to medical condition or safety concerns L. Walking 10 feet on uneven surfaces 88-Not attempted due to medical condition or safety concerns S. Wheel 150 feet 88-Not attempted due to medical condition or safety concerns - Bladder and Bowel Bladder continence Bowel continence - Endurance Fair - Balance Poor - Safety Awareness Fair CURRENT [facility]. DEFICITS: Endurance, Balance, Mobility, Safety Awareness, and Self-Care SIGNATURE PANEL: (CDT)
[2020-03-11] MEDS: ATORVASTATIN 80 MG TAB PO SCH (20:10)
[2020-03-12] MEDS: METOPROLOL TAR 25 MG TAB PO SCH ×2 (05:20→17:09)
[2020-03-12] MEDS: ASPIRIN 81 MG CHEWABLE TABLET PO SCH ×2 (08:00→08:08)
[2020-03-12] MEDS: DORZOLAMIDE OPTH SCH ×2 (08:08→19:14)
[2020-03-12] MEDS: FE SULF/FA/VIT B COMP & C TAB PO SCH (08:08)
[2020-03-12] MEDS: LOSARTAN POTASSIUM 50 MG TABLET PO SCH (08:08)
[2020-03-12] MEDS: TIMOLOL OPTH SCH ×2 (08:08→19:14)
[2020-03-12] MEDS: DULOXETINE 20 MG CAP PO SCH (08:08)
[2020-03-12] MEDS: CYANOCOBALAMIN 1,000 MCG TAB PO SCH (08:08)
[2020-03-12] MEDS: PANTOPRAZOLE 40MG TABLET PO SCH (08:08)
[2020-03-12] MEDS: CRANBERRY FRUIT EXTRACT 200 MG CAP PO SCH ×2 (08:08→19:13)
[2020-03-12] MEDS: LIDOCAINE 4% PATCH TOP SCH (08:08)
[2020-03-12] MEDS: APIXABAN 5 MG TABLET PO SCH ×2 (08:08→19:14)
[2020-03-12] MEDS: PROMOD 30 ML DOSE PO SCH ×2 (08:10→19:14)
[2020-03-12] MEDS: ENSURE HIGH PROTEIN 237 ML CAN PO SCH (08:10)
--- NOTE | 2020-03-12 17:27 | R.PN ---
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 Pt denied any Shortness of Breath. Prealbumin is very low at 7.8. Will start promod. Bed mobility done with moderate assistance. Perform ed [id number] exercises in the parallel bars with moderate assistance. Ambulated 90' with minimum assistance using a rolling walker. VITAL SIGNS Temperature: 97.1 F SBP/DBP: 153/68 Pulse: 69 Resp: 14 MEDICATION ALLERGIES: No Known Drug Allergies (NKDA) ENVIRONMENTAL ALLERGIES: - Substance Allergies None Known - Other Allergies PENICILLIN SULFA ( ANTIBIOTICS) CORTICOSTEROIDS ( GLUCOCORTICOIDS) NURSING: - Shower allowing shower - Bladder care per protocol - Skin care per protocol PRECAUTIONS: - Weight Bearing Precaution WBAT left LE ACTIVITIES OOB only with supervision THERAPIES: - Occupational Therapy Cognitive Retraining. Visual Perceptual Training. - Dietary and Nutrition Adequate Nutrition. Nutritional Education. Nutritional Supplements. - Speech Therapy Cognitive Training. Expressive Language Skills. Memory Strategies. Receptive Language Skills. Speech Intelligibility Training. PHYSICAL EXAM - Gen Alert and awake Lying in bed No apparent distress Oriented to: person, time, and place - Skin No skin breakdown. No abnormalities - Eyes No abnormalities - ENMT No abnormalities - Neck No abnormalities - CVS RRR - Chest No abnormalities - Resp Clear to auscultation - Abd Soft - GI Non distended Deferred - No abnormalities - Ext No significant edema - MSK 4+/5 weakness in left upper and lower extremity - Neuro 4/5 strength left upper and lower extremities. - Psych No abnormalities ASSESSMENT: Currently, she has deficits of Locomotion, Balance, Social Cognition, Transfers Control, Sphincter Co ntrol, Self-Care, and Communication.On 02/24/2020 Pt. presented to [facility] with sudden onset of left-side weakness.On 02/24/2020 she was admitted to [facility] with diagnosis Right CVA.He r impairment category is Stroke 01 - Left Body (Right Brain) (01.1).Pt. is now referred to [facility] for acute in-patient rehabilitation in order to maximize patient's functiona l independence in activities of daily living, strength, ROM, and mobility.Pre-morbidly, Pt. was indep endent/mod-I in Locomotion, Safety Awareness, Self-Care, Communication, and Transfers Control; and sh e had good Balance, Endurance, and Sphincter Control.Pt. is a 74 yo Right-handed female of unknown ra ce.- Rehab Goal Patient has realistic goal of being discharged at assistance level 6-Andrew to reside at Home with Fam thomas/Relatives. MDM/PLAN: - Physical Therapy Achieving independence - to improve, our physical therapists will perform initial evaluation of pt's status upon admission and devise an individualized program for Community Reintegration Activities Edema - to improve, our physical therapists will perform initial evaluation of pt's status upon admi ssion and devise an individualized program for Elevation Training, and Lymphedema Therapy Gait dysfunction - to improve, our physical therapists will perform initial evaluation of pt's statu s upon admission and devise an individualized program for Gait Training, and Wheel Chair mobility Inability to transfer - to improve, our physical therapists will perform initial evaluation of pt's status upon admission and devise an individualized program for Bed mobility Need for home safety evaluation - to improve, our physical therapists will perform initial evaluatio n of pt's status upon admission and devise an individualized program for Home Evaluation Need in caregiver upon discharge - to improve, our physical therapists will perform initial evaluati on of pt's status upon admission and devise an individualized program for Caregiver Training New precaution - to improve, our physical therapists will perform initial evaluation of pt's status upon admission and devise an individualized program for Patient precaution education Poor balance - to improve, our physical therapists will perform initial evaluation of pt's status up on admission and devise an individualized program for Balance Training Weakness - to improve, our physical therapists will perform initial evaluation of pt's status upon a dmission and devise an individualized program for Aquatic Therapy, Neuromuscular Reeducation, and Str engthening - Occupational Therapy ADL deficits - to improve, our occupation therapists will perform initial evaluation of pt's status upon admission and devise an individualized program for Bathing, Bed mobility, Community Reintegratio n, Cooking, Dressing, Eating, Fine Motor Skills, Grooming, Homemaking, Kitchen Mobility, Laundry, Pat ient Education, Safety Awareness, Splinting - Positioning, Transfers(Toilet, Tub, Shower), and Wheel Chair Management Cognitive deficits - to improve, our occupation therapists will perform initial evaluation of pt's s tatus upon admission and devise an individualized program for Cognition - orientation Need for career development consultant - to improve, our occupation therapists will perform initial evaluation of pt's status upon admission and devise an individualized program for Caregiver Training Weakness - to improve, our occupation therapists will perform initial evaluation of pt's status upon admission and devise an individualized program for Aquatic Therapy, Balance, Endurance, UE ROM, and UE strengthening - Other See attached MAR (Medication Administration Record) - Diet Type Continue Regular - Diet - Liquid Texture Continue Regular - Tube Feed Continue N/A - Bladder care per protocol - Weight Bearing Precaution WBAT left LE - Skin care per protocol - Diet - Solid Texture Continue Regular - Shower allowing shower for Dementia, TBI, Stroke, or others FUNCTIONAL STATUS: UPDATED AT WEEKLY TEAM CONFERENCE - Bladder Same accident frequency: 7-Ind - No accidents in the past 7 days - Bowel Same accident frequency: 7-Ind - No accidents in the past 7 days - Walking Same score based on distance walked: 0(N/A) - Wheelchair Same score based on distance traveled: 0(N/A) FUNCTIONAL STATUS: - Self-Care A. Eating Andrew B. Grooming Marianela C. Bathing modA D. Dressing - Upper modA E. Dressing - Lower maxA F. Toileting maxA - Sphincter Control G. Bladder control Marianela H. Bowel control Marianela - Transfers Control I. Bed/Chair/Wheelchair modA J. Toilet modA K. Tub/Shower modA - Locomotion L. Walk/Wheelchair (B) modA M. Stairs ADNO - Communication N. Comprehension (B) Marianela O. Expression (B) sup - Social Cognition P. Social Interaction sup Q. Problem Solving sup R. Memory sup - Endurance Poor - Balance Poor - Safety Awareness Poor QI SCORES: - Self-Care A. Eating 05-Setup or clean-up assistance B. Oral hygiene 03-Partial/moderate assistance C. Toileting hygiene 88-Not attempted due to medical condition or safety concerns E. Shower/bathe self 02-Substantial/maximal assistance F. Upper body dressing 02-Substantial/maximal assistance G. Lower body dressing 02-Substantial/maximal assistance H. Putting on/taking off footwear 02-Substantial/maximal assistance - Mobility M. 1 step (curb) 88-Not attempted due to medical condition or safety concerns N. 4 steps 88-Not attempted due to medical condition or safety concerns O. 12 steps 88-Not attempted due to medical condition or safety concerns P. Picking up object 88-Not attempted due to medical condition or safety concerns R. Wheel 50 feet with two turns 88-Not attempted due to medical condition or safety concerns A. Roll left and right 02-Substantial/maximal assistance B. Sit to lying 03-Partial/moderate assistance C. Lying to sitting on side of bed 03-Partial/moderate assistance D. Sit to stand 02-Substantial/maximal assistance E. Chair/xje-pk-[id number] transfer 02-Substantial/maximal assistance F. Toilet transfer 88-Not attempted due to medical condition or safety concerns G. Car transfer 88-Not attempted due to medical condition or safety concerns I. Walk 10 feet 88-Not attempted due to medical condition or safety concerns J. Walk 50 feet with two turns 88-Not attempted due to medical condition or safety concerns K. Walk 150 feet 88-Not attempted due to medical condition or safety concerns L. Walking 10 feet on uneven surfaces 88-Not attempted due to medical condition or safety concerns S. Wheel 150 feet 88-Not attempted due to medical condition or safety concerns - Bladder and Bowel Bladder continence Bowel continence - Endurance Fair - Balance Poor - Safety Awareness Fair CURRENT [facility]. DEFICITS: Endurance, Balance, Mobility, Safety Awareness, and Self-Care SIGNATURE PANEL: (CDT)
[2020-03-12] MEDS: ATORVASTATIN 80 MG TAB PO SCH (19:14)
[2020-03-12] MEDS: GABAPENTIN 100 MG CAP PO SCH (19:14)
[2020-03-12] MEDS: LATANOPROST OPTH SCH (19:14)
[2020-03-13] MEDS: METOPROLOL TAR 25 MG TAB PO SCH ×2 (05:07→17:09)
[2020-03-13 05:57] LABS: Absolute Lymphocytes (CBC) 1.6 K/uL (0.7-4.9); Basophils % 1.1 % (0-1.3); Hematocrit 33.4 % (36.0-45.0); Lymphocytes % 25.1 % (15.3-44.8); MPV 9.3 fL (7.6-11.3); RBC Red Blood Cell Count 4.09 M/uL (3.86-4.86)
[2020-03-13 06:18] LABS: Albumin 2.7 g/dL (3.4-5.0); Magnesium 2.1 mg/dL (1.8-2.4); Potassium 4.2 mmol/L (3.5-5.1); Prealbumin 18.6 mg/dL (20-40)
[2020-03-13] MEDS: PANTOPRAZOLE 40MG TABLET PO SCH (06:48)
[2020-03-13] MEDS: LIDOCAINE 4% PATCH TOP SCH (07:30)
[2020-03-13] MEDS: DORZOLAMIDE OPTH SCH ×2 (07:31→19:37)
[2020-03-13] MEDS: TIMOLOL OPTH SCH ×2 (07:31→19:37)
[2020-03-13 08:03] LABS: Urine Appearance CLEAR; Urine Bilirubin NEGATIVE (NEG); Urine Blood NEGATIVE (NEG); Urine Color YELLOW; Urine Glucose NEGATIVE (NEG); Urine Microscopic Reflex NO UMIC; Urine Protein NEGATIVE (NEG); Urine Specific Gravity <=1.005 (1.005-1.030)
[2020-03-13] MEDS: PROMOD 30 ML DOSE PO SCH ×2 (08:30→19:37)
[2020-03-13] MEDS: ENSURE HIGH PROTEIN 237 ML CAN PO SCH (08:30)
[2020-03-13] MEDS: GABAPENTIN 100 MG CAP PO SCH ×2 (08:49→19:37)
[2020-03-13] MEDS: CRANBERRY FRUIT EXTRACT 200 MG CAP PO SCH ×2 (08:50→19:37)
[2020-03-13] MEDS: FE SULF/FA/VIT B COMP & C TAB PO SCH (08:50)
[2020-03-13] MEDS: LOSARTAN POTASSIUM 50 MG TABLET PO SCH (08:50)
[2020-03-13] MEDS: ASPIRIN 81 MG CHEWABLE TABLET PO SCH (08:50)
[2020-03-13] MEDS: TRAMADOL HCL 50 MG TAB PO PRN (08:51)
[2020-03-13] MEDS: APIXABAN 5 MG TABLET PO SCH ×2 (08:51→19:37)
[2020-03-13] MEDS: DULOXETINE 20 MG CAP PO SCH (08:51)
[2020-03-13] MEDS: CYANOCOBALAMIN 1,000 MCG TAB PO SCH (08:51)
--- NOTE | 2020-03-13 19:35 | R.PN ---
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 Pt denied any Shortness of Breath. Prealbumin is very low at 7.8. Will start promod. Bed mobility done with moderate assistance. Perform ed ezy-hm-[id number] exercises in the parallel bars with moderate assistance. Ambulated 285' with minimum assistance using a left platform walker. VITAL SIGNS Temperature: 97.5 F SBP/DBP: 153/72 Pulse: 75 Resp: 16 MEDICATION ALLERGIES: No Known Drug Allergies (NKDA) ENVIRONMENTAL ALLERGIES: - Substance Allergies None Known - Other Allergies PENICILLIN SULFA ( ANTIBIOTICS) CORTICOSTEROIDS ( GLUCOCORTICOIDS) NURSING: - Shower allowing shower - Bladder care per protocol - Skin care per protocol PRECAUTIONS: - Weight Bearing Precaution WBAT left LE ACTIVITIES OOB only with supervision THERAPIES: - Occupational Therapy Cognitive Retraining. Visual Perceptual Training. - Dietary and Nutrition Adequate Nutrition. Nutritional Education. Nutritional Supplements. - Speech Therapy Cognitive Training. Expressive Language Skills. Memory Strategies. Receptive Language Skills. Speech Intelligibility Training. PHYSICAL EXAM - Gen Alert and awake Lying in bed No apparent distress Oriented to: person, time, and place - Skin No skin breakdown. No abnormalities - Eyes No abnormalities - ENMT No abnormalities - Neck No abnormalities - CVS RRR - Chest No abnormalities - Resp Clear to auscultation - Abd Soft - GI Non distended Deferred - No abnormalities - Ext No significant edema - MSK 4+/5 weakness in left upper and lower extremity - Neuro 4/5 strength left upper and lower extremities. - Psych No abnormalities ASSESSMENT: Currently, she has deficits of Locomotion, Balance, Social Cognition, Transfers Control, Sphincter Co ntrol, Self-Care, and Communication.On 02/24/2020 Pt. presented to [facility] with sudden onset of left-side weakness.On 02/24/2020 she was admitted to [facility] with diagnosis Right CVA.He r impairment category is Stroke 01 - Left Body (Right Brain) (01.1).Pt. is now referred to [facility] for acute in-patient rehabilitation in order to maximize patient's functiona l independence in activities of daily living, strength, ROM, and mobility.Pre-morbidly, Pt. was indep endent/mod-I in Locomotion, Safety Awareness, Self-Care, Communication, and Transfers Control; and sh e had good Balance, Endurance, and Sphincter Control.Pt. is a 74 yo Right-handed female of unknown ra ce.- Rehab Goal Patient has realistic goal of being discharged at assistance level 6-Andrew to reside at Home with Fam thomas/Relatives. MDM/PLAN: - Physical Therapy Achieving independence - to improve, our physical therapists will perform initial evaluation of pt's status upon admission and devise an individualized program for Community Reintegration Activities Edema - to improve, our physical therapists will perform initial evaluation of pt's status upon admi ssion and devise an individualized program for Elevation Training, and Lymphedema Therapy Gait dysfunction - to improve, our physical therapists will perform initial evaluation of pt's statu s upon admission and devise an individualized program for Gait Training, and Wheel Chair mobility Inability to transfer - to improve, our physical therapists will perform initial evaluation of pt's status upon admission and devise an individualized program for Bed mobility Need for home safety evaluation - to improve, our physical therapists will perform initial evaluatio n of pt's status upon admission and devise an individualized program for Home Evaluation Need in caregiver upon discharge - to improve, our physical therapists will perform initial evaluati on of pt's status upon admission and devise an individualized program for Caregiver Training New precaution - to improve, our physical therapists will perform initial evaluation of pt's status upon admission and devise an individualized program for Patient precaution education Poor balance - to improve, our physical therapists will perform initial evaluation of pt's status up on admission and devise an individualized program for Balance Training Weakness - to improve, our physical therapists will perform initial evaluation of pt's status upon a dmission and devise an individualized program for Aquatic Therapy, Neuromuscular Reeducation, and Str engthening - Occupational Therapy ADL deficits - to improve, our occupation therapists will perform initial evaluation of pt's status upon admission and devise an individualized program for Bathing, Bed mobility, Community Reintegratio n, Cooking, Dressing, Eating, Fine Motor Skills, Grooming, Homemaking, Kitchen Mobility, Laundry, Pat ient Education, Safety Awareness, Splinting - Positioning, Transfers(Toilet, Tub, Shower), and Wheel Chair Management Cognitive deficits - to improve, our occupation therapists will perform initial evaluation of pt's s tatus upon admission and devise an individualized program for Cognition - orientation Need for housekeeper caregiver - to improve, our occupation therapists will perform initial evaluation of pt's status upon admission and devise an individualized program for Caregiver Training Weakness - to improve, our occupation therapists will perform initial evaluation of pt's status upon admission and devise an individualized program for Aquatic Therapy, Balance, Endurance, UE ROM, and UE strengthening - Other See attached MAR (Medication Administration Record) - Diet Type Continue Regular - Diet - Liquid Texture Continue Regular - Tube Feed Continue N/A - Bladder care per protocol - Weight Bearing Precaution WBAT left LE - Skin care per protocol - Diet - Solid Texture Continue Regular - Shower allowing shower for Dementia, TBI, Stroke, or others FUNCTIONAL STATUS: UPDATED AT WEEKLY TEAM CONFERENCE - Bladder Same accident frequency: 7-Ind - No accidents in the past 7 days - Bowel Same accident frequency: 7-Ind - No accidents in the past 7 days - Walking Same score based on distance walked: 0(N/A) - Wheelchair Same score based on distance traveled: 0(N/A) FUNCTIONAL STATUS: - Self-Care A. Eating Andrew B. Grooming Marianela C. Bathing modA D. Dressing - Upper modA E. Dressing - Lower maxA F. Toileting maxA - Sphincter Control G. Bladder control Marianela H. Bowel control Marianela - Transfers Control I. Bed/Chair/Wheelchair modA J. Toilet modA K. Tub/Shower modA - Locomotion L. Walk/Wheelchair (B) modA M. Stairs ADNO - Communication N. Comprehension (B) Marianela O. Expression (B) sup - Social Cognition P. Social Interaction sup Q. Problem Solving sup R. Memory sup - Endurance Poor - Balance Poor - Safety Awareness Poor QI SCORES: - Self-Care A. Eating 05-Setup or clean-up assistance B. Oral hygiene 03-Partial/moderate assistance C. Toileting hygiene 88-Not attempted due to medical condition or safety concerns E. Shower/bathe self 02-Substantial/maximal assistance F. Upper body dressing 02-Substantial/maximal assistance G. Lower body dressing 02-Substantial/maximal assistance H. Putting on/taking off footwear 02-Substantial/maximal assistance - Mobility M. 1 step (curb) 88-Not attempted due to medical condition or safety concerns N. 4 steps 88-Not attempted due to medical condition or safety concerns O. 12 steps 88-Not attempted due to medical condition or safety concerns P. Picking up object 88-Not attempted due to medical condition or safety concerns R. Wheel 50 feet with two turns 88-Not attempted due to medical condition or safety concerns A. Roll left and right 02-Substantial/maximal assistance B. Sit to lying 03-Partial/moderate assistance C. Lying to sitting on side of bed 03-Partial/moderate assistance D. Sit to stand 02-Substantial/maximal assistance E. Chair/wmg-ry-mlsps transfer 02-Substantial/maximal assistance F. Toilet transfer 88-Not attempted due to medical condition or safety concerns G. Car transfer 88-Not attempted due to medical condition or safety concerns I. Walk 10 feet 88-Not attempted due to medical condition or safety concerns J. Walk 50 feet with two turns 88-Not attempted due to medical condition or safety concerns K. Walk 150 feet 88-Not attempted due to medical condition or safety concerns L. Walking 10 feet on uneven surfaces 88-Not attempted due to medical condition or safety concerns S. Wheel 150 feet 88-Not attempted due to medical condition or safety concerns - Bladder and Bowel Bladder continence Bowel continence - Endurance Fair - Balance Poor - Safety Awareness Fair CURRENT [facility]. DEFICITS: Endurance, Balance, Mobility, Safety Awareness, and Self-Care SIGNATURE PANEL: (CDT)
[2020-03-13] MEDS: ATORVASTATIN 80 MG TAB PO SCH (19:37)
[2020-03-13] MEDS: LATANOPROST OPTH SCH (19:37)
[2020-03-14] MEDS: METOPROLOL TAR 25 MG TAB PO SCH ×2 (05:06→17:10)
[2020-03-14] MEDS: PANTOPRAZOLE 40MG TABLET PO SCH (06:30)
[2020-03-14] MEDS: ACETAMINOPHEN 500 MG TAB PO PRN ×2 (07:50→12:45)
[2020-03-14] MEDS: ONDANSETRON 4 MG (ODT) TAB PO PRN ×2 (07:51→12:45)
[2020-03-14] MEDS: DULOXETINE 20 MG CAP PO SCH (07:52)
[2020-03-14] MEDS: PROMOD 30 ML DOSE PO SCH ×2 (07:52→20:44)
[2020-03-14] MEDS: CRANBERRY FRUIT EXTRACT 200 MG CAP PO SCH ×2 (07:52→20:44)
[2020-03-14] MEDS: FE SULF/FA/VIT B COMP & C TAB PO SCH (07:52)
[2020-03-14] MEDS: APIXABAN 5 MG TABLET PO SCH ×2 (07:53→20:44)
[2020-03-14] MEDS: ASPIRIN 81 MG CHEWABLE TABLET PO SCH (07:53)
[2020-03-14] MEDS: TIMOLOL OPTH SCH ×2 (07:53→20:43)
[2020-03-14] MEDS: CYANOCOBALAMIN 1,000 MCG TAB PO SCH (07:53)
[2020-03-14] MEDS: DORZOLAMIDE OPTH SCH ×2 (07:53→20:43)
[2020-03-14] MEDS: LOSARTAN POTASSIUM 50 MG TABLET PO SCH (07:53)
[2020-03-14] MEDS: ENSURE HIGH PROTEIN 237 ML CAN PO SCH (07:54)
[2020-03-14] MEDS: GABAPENTIN 100 MG CAP PO SCH ×2 (07:56→20:44)
--- NOTE | 2020-03-14 09:51 | P.RH.PN ---
Estimated Length of Stay: 24 Expected Discharge Date: 03/26/20 Discharge Disposition Plan: Home Family Support: Yes Nursing Home Goal: Mobility, Transfers, Self Care Vital Signs: Last Vital Signs Temp 97.3 F 03/14/20 07:36 Pulse 69 03/14/20 07:36 Resp 14 03/14/20 07:36 BP 137/54 L 03/14/20 07:36 Pulse Ox 99 03/14/20 07:36 Laboratory: Laboratory Last Values WBC 6.3 K/uL (4.3-10.9) 03/13/20 05:35 RBC 4.09 M/uL (3.86-4.86) D 03/13/20 05:35 Hgb 11.3 g/dL (12.0-15.0) L D 03/13/20 05:35 Hct 33.4 % (36.0-45.0) L D 03/13/20 05:35 MCV 81.6 fL (80-100) 03/13/20 05:35 MCH 27.7 pg (27.0-35.0) 03/13/20 05:35 MCHC 34.0 g/dL (32.0-36.0) 03/13/20 05:35 RDW 16.6 % (12.1-15.2) H 03/13/20 05:35 Plt Count 216 K/uL (152-406) D 03/13/20 05:35 MPV 9.3 fL (7.6-11.3) 03/13/20 05:35 Neutrophils % 53.6 % (41.7-73.7) 03/13/20 05:35 Lymphocytes % 25.1 % (15.3-44.8) 03/13/20 05:35 Monocytes % 12.6 % (3.3-12.3) H 03/13/20 05:35 Eosinophils % 7.6 % (0-4.4) H 03/13/20 05:35 Basophils % 1.1 % (0-1.3) 03/13/20 05:35 Absolute Neutrophils 3.4 K/uL (1.8-8.0) 03/13/20 05:35 Absolute Lymphocytes 1.6 K/uL (0.7-4.9) 03/13/20 05:35 Absolute Monocytes 0.8 K/uL (0.1-1.3) 03/13/20 05:35 Absolute Eosinophils 0.5 K/uL (0-0.5) 03/13/20 05:35 Absolute Basophils 0.1 K/uL (0-0.5) 03/13/20 05:35 Sodium 135 mmol/L (136-145) L 03/13/20 05:35 Potassium 4.2 mmol/L (3.5-5.1) 03/13/20 05:35 Chloride 102 mmol/L (98-107) 03/13/20 05:35 Carbon Dioxide 28 mmol/L (21-32) 03/13/20 05:35 BUN 19 mg/dL (7-18) H 03/13/20 05:35 Creatinine 0.68 mg/dL (0.55-1.3) 03/13/20 05:35 Estimated GFR 84 mL/min (=/>90) L 03/13/20 05:35 Glucose 103 mg/dL (74-106) 03/13/20 05:35 Calcium 8.6 mg/dL (8.5-10.1) 03/13/20 05:35 Magnesium 2.1 mg/dL (1.8-2.4) 03/13/20 05:35 Albumin 2.7 g/dL (3.4-5.0) L 03/13/20 05:35 Prealbumin 18.6 mg/dL (20-40) L 03/13/20 05:35 Urine Color Yellow 03/13/20 07:15 Urine Appearance Clear 03/13/20 07:15 Urine pH 7.0 (5.0-7.0) 03/13/20 07:15 Ur Specific Foley <=1.005 (1.005-1.030) 03/13/20 07:15 Glucose (UA)(Auto) Negative (NEG) 03/13/20 07:15 Urine Ketones Negative (NEG) 03/13/20 07:15 Urine Blood Negative (NEG) 03/13/20 07:15 Urine Nitrite Negative (NEG) 03/13/20 07:15 Urine Bilirubin Negative (NEG) 03/13/20 07:15 Urine Urobilinogen 1.0 mg/dL (0.2-1.0) 03/13/20 07:15 Ur Leukocyte Esterase Negative (NEG) 03/13/20 07:15 Urine RBC 5-10 /HPF (NONE SEEN) H 03/03/20 19:30 Urine WBC 5-10 /HPF (<5) H 03/03/20 19:30 Ur Squamous Epith Cells 10-20 /HPF (NONE SEEN) H 03/03/20 19:30 Urine Bacteria <20 /HPF (<20) 03/03/20 19:30 Urine Mucus 2+ /HPF (NONE SEEN) 03/03/20 19:30 Urine Culture Reflexed Not needed 03/03/20 19:30 Urine Total Protein Negative (NEG) 03/13/20 07:15 SARS-CoV-2 RNA (RT-PCR) Negative (NEGATIVE) 03/10/20 18:20 Weight: 151 lb 4.8 oz Wound Present: No Closed Surgical Incision Present: No Negative Pressure Wound Therapy Present: No Physician Update: Labs reviewed and Hgb is mildly low at 11.3 while prealbumin improved significantly 18.6. She is making good progress. She is walking 100' with contact guard with minimum assistance using a platform walker. She is regaining stength in the left proximal more than distal upper extremity. She has right thigh pain treated with gabapentin, a pain patch and extra strength Tylenol. Pain Issues: Taking Tylenol, Gapapentin, Hydrocodone, Tramadol, Lidocaine patch. Nutritional Needs: Taking hemocyte plus, promod, B12 and Ensure. Psychosocial Needs: Taking Cymbalta. Functional Improvement: pt has demonstrated progress with her functional mobility and transfers. pt has improved technique and safety during ambulation and functional transfers. pt is motivated but fatigues easily. Skilled PT ser vices remain necessary to enhance functional performance. Summary: Patient's care plan and joint terminal attack controller goals have been reviewed and revised as necessary. Please see the Rehabilitation Signature page for all necessary signatures.
[2020-03-14] MEDS: LIDOCAINE 4% PATCH TOP SCH (10:50)
[2020-03-14] MEDS: LATANOPROST OPTH SCH (20:44)
[2020-03-14] MEDS: ATORVASTATIN 80 MG TAB PO SCH (20:44)
[2020-03-15] MEDS: METOPROLOL TAR 25 MG TAB PO SCH ×2 (05:14→17:04)
[2020-03-15] MEDS: PANTOPRAZOLE 40MG TABLET PO SCH (06:34)
[2020-03-15] MEDS: LIDOCAINE 4% PATCH TOP SCH (06:47)
[2020-03-15] MEDS: DULOXETINE 20 MG CAP PO SCH (07:50)
[2020-03-15] MEDS: FE SULF/FA/VIT B COMP & C TAB PO SCH (07:50)
[2020-03-15] MEDS: CRANBERRY FRUIT EXTRACT 200 MG CAP PO SCH ×2 (07:50→20:32)
[2020-03-15] MEDS: ASPIRIN 81 MG CHEWABLE TABLET PO SCH (07:50)
[2020-03-15] MEDS: LOSARTAN POTASSIUM 50 MG TABLET PO SCH (07:50)
[2020-03-15] MEDS: GABAPENTIN 100 MG CAP PO SCH ×2 (07:50→20:28)
[2020-03-15] MEDS: APIXABAN 5 MG TABLET PO SCH ×2 (07:50→20:28)
[2020-03-15] MEDS: TIMOLOL OPTH SCH ×2 (07:51→20:00)
[2020-03-15] MEDS: DORZOLAMIDE OPTH SCH ×2 (07:51→20:00)
[2020-03-15] MEDS: CYANOCOBALAMIN 1,000 MCG TAB PO SCH (07:51)
[2020-03-15] MEDS: PROMOD 30 ML DOSE PO SCH ×2 (07:51→20:33)
[2020-03-15] MEDS: ENSURE HIGH PROTEIN 237 ML CAN PO SCH (07:51)
[2020-03-15] MEDS: ATORVASTATIN 80 MG TAB PO SCH (20:31)
[2020-03-15] MEDS: LATANOPROST OPTH SCH (20:33)
[2020-03-16] MEDS: PANTOPRAZOLE 40MG TABLET PO SCH (07:09)
[2020-03-16] MEDS: METOPROLOL TAR 25 MG TAB PO SCH ×2 (07:09→17:17)
[2020-03-16] MEDS: DORZOLAMIDE OPTH SCH ×2 (08:00→20:00)
[2020-03-16] MEDS: GABAPENTIN 100 MG CAP PO SCH ×2 (08:00→20:00)
[2020-03-16] MEDS: TIMOLOL OPTH SCH ×2 (08:00→20:00)
[2020-03-16] MEDS ORDERED: METOPROLOL TAR 25 MG TAB PO SCH (08:00)
[2020-03-16] MEDS: LIDOCAINE 4% PATCH TOP SCH (08:31)
[2020-03-16] MEDS: FE SULF/FA/VIT B COMP & C TAB PO SCH (08:32)
[2020-03-16] MEDS: CYANOCOBALAMIN 1,000 MCG TAB PO SCH (08:32)
[2020-03-16] MEDS: ASPIRIN 81 MG CHEWABLE TABLET PO SCH (08:32)
[2020-03-16] MEDS: LOSARTAN POTASSIUM 50 MG TABLET PO SCH (08:32)
[2020-03-16] MEDS: CRANBERRY FRUIT EXTRACT 200 MG CAP PO SCH ×2 (08:32→20:19)
[2020-03-16] MEDS: DULOXETINE 20 MG CAP PO SCH (08:33)
[2020-03-16] MEDS: APIXABAN 5 MG TABLET PO SCH ×2 (08:33→20:19)
[2020-03-16] MEDS: ENSURE HIGH PROTEIN 237 ML CAN PO SCH (10:21)
[2020-03-16] MEDS: PROMOD 30 ML DOSE PO SCH ×2 (10:21→20:20)
[2020-03-16] MEDS: DOCUSATE NA 100 MG CAP PO PRN (12:05)
[2020-03-16] MEDS: LATANOPROST OPTH SCH ×2 (20:19→20:37)
[2020-03-16] MEDS: ATORVASTATIN 80 MG TAB PO SCH (20:20)
[2020-03-17] MEDS: METOPROLOL TAR 25 MG TAB PO SCH ×2 (05:05→17:08)
[2020-03-17] MEDS: PANTOPRAZOLE 40MG TABLET PO SCH (06:26)
[2020-03-17] MEDS: ACETAMINOPHEN 500 MG TAB PO PRN (07:42)
[2020-03-17] MEDS: ONDANSETRON 4 MG (ODT) TAB PO PRN (07:42)
[2020-03-17] MEDS: PROMOD 30 ML DOSE PO SCH ×2 (07:43→20:21)
[2020-03-17] MEDS: ENSURE HIGH PROTEIN 237 ML CAN PO SCH (07:43)
[2020-03-17] MEDS: LOSARTAN POTASSIUM 50 MG TABLET PO SCH (07:44)
[2020-03-17] MEDS: ASPIRIN 81 MG CHEWABLE TABLET PO SCH (07:44)
[2020-03-17] MEDS: APIXABAN 5 MG TABLET PO SCH ×2 (07:44→20:21)
[2020-03-17] MEDS: CRANBERRY FRUIT EXTRACT 200 MG CAP PO SCH ×2 (07:44→20:21)
[2020-03-17] MEDS: CYANOCOBALAMIN 1,000 MCG TAB PO SCH (07:45)
[2020-03-17] MEDS: TIMOLOL OPTH SCH (07:45)
[2020-03-17] MEDS: DORZOLAMIDE OPTH SCH (07:45)
[2020-03-17] MEDS: DULOXETINE 20 MG CAP PO SCH (07:45)
[2020-03-17] MEDS: FE SULF/FA/VIT B COMP & C TAB PO SCH (07:45)
[2020-03-17] MEDS: GABAPENTIN 100 MG CAP PO SCH (07:45)
[2020-03-17] MEDS: LIDOCAINE 4% PATCH TOP SCH (10:56)
--- NOTE | 2020-03-17 19:34 | R.PN ---
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 Pt denied any Shortness of Breath. Prealbumin is very low at 7.8. Will start promod. Bed mobility done with moderate assistance. Perform ed mab-bh-szbof exercises in the parallel bars with moderate assistance. Ambulated 250' with contact guard assistance using a left platform walker. VITAL SIGNS Temperature: 97.5 F SBP/DBP: 159/76 Pulse: 69 Resp: 16 MEDICATION ALLERGIES: No Known Drug Allergies (NKDA) ENVIRONMENTAL ALLERGIES: - Substance Allergies None Known - Other Allergies PENICILLIN SULFA ( ANTIBIOTICS) CORTICOSTEROIDS ( GLUCOCORTICOIDS) NURSING: - Shower allowing shower - Bladder care per protocol - Skin care per protocol PRECAUTIONS: - Weight Bearing Precaution WBAT left LE ACTIVITIES OOB only with supervision THERAPIES: - Occupational Therapy Cognitive Retraining. Visual Perceptual Training. - Dietary and Nutrition Adequate Nutrition. Nutritional Education. Nutritional Supplements. - Speech Therapy Cognitive Training. Expressive Language Skills. Memory Strategies. Receptive Language Skills. Speech Intelligibility Training. PHYSICAL EXAM - Gen Alert and awake Lying in bed No apparent distress Oriented to: person, time, and place - Skin No skin breakdown. No abnormalities - Eyes No abnormalities - ENMT No abnormalities - Neck No abnormalities - CVS RRR - Chest No abnormalities - Resp Clear to auscultation - Abd Soft - GI Non distended Deferred - No abnormalities - Ext No significant edema - MSK 4+/5 weakness in left upper and lower extremity - Neuro 4/5 strength left upper and lower extremities. - Psych No abnormalities ASSESSMENT: Currently, she has deficits of Locomotion, Balance, Social Cognition, Transfers Control, Sphincter Co ntrol, Self-Care, and Communication.On 02/24/2020 Pt. presented to [facility] with sudden onset of left-side weakness.On 02/24/2020 she was admitted to [facility] with diagnosis Right CVA.He r impairment category is Stroke 01 - Left Body (Right Brain) (01.1).Pt. is now referred to [facility] for acute in-patient rehabilitation in order to maximize patient's functiona l independence in activities of daily living, strength, ROM, and mobility.Pre-morbidly, Pt. was indep endent/mod-I in Locomotion, Safety Awareness, Self-Care, Communication, and Transfers Control; and sh e had good Balance, Endurance, and Sphincter Control.Pt. is a 74 yo Right-handed female of unknown ra ce.- Rehab Goal Patient has realistic goal of being discharged at assistance level 6-Andrew to reside at Home with Fam thomas/Relatives. MDM/PLAN: - Physical Therapy Achieving independence - to improve, our physical therapists will perform initial evaluation of pt's status upon admission and devise an individualized program for Community Reintegration Activities Edema - to improve, our physical therapists will perform initial evaluation of pt's status upon admi ssion and devise an individualized program for Elevation Training, and Lymphedema Therapy Gait dysfunction - to improve, our physical therapists will perform initial evaluation of pt's statu s upon admission and devise an individualized program for Gait Training, and Wheel Chair mobility Inability to transfer - to improve, our physical therapists will perform initial evaluation of pt's status upon admission and devise an individualized program for Bed mobility Need for home safety evaluation - to improve, our physical therapists will perform initial evaluatio n of pt's status upon admission and devise an individualized program for Home Evaluation Need in caregiver upon discharge - to improve, our physical therapists will perform initial evaluati on of pt's status upon admission and devise an individualized program for Caregiver Training New precaution - to improve, our physical therapists will perform initial evaluation of pt's status upon admission and devise an individualized program for Patient precaution education Poor balance - to improve, our physical therapists will perform initial evaluation of pt's status up on admission and devise an individualized program for Balance Training Weakness - to improve, our physical therapists will perform initial evaluation of pt's status upon a dmission and devise an individualized program for Aquatic Therapy, Neuromuscular Reeducation, and Str engthening - Occupational Therapy ADL deficits - to improve, our occupation therapists will perform initial evaluation of pt's status upon admission and devise an individualized program for Bathing, Bed mobility, Community Reintegratio n, Cooking, Dressing, Eating, Fine Motor Skills, Grooming, Homemaking, Kitchen Mobility, Laundry, Pat ient Education, Safety Awareness, Splinting - Positioning, Transfers(Toilet, Tub, Shower), and Wheel Chair Management Cognitive deficits - to improve, our occupation therapists will perform initial evaluation of pt's s tatus upon admission and devise an individualized program for Cognition - orientation Need for family day care provider - to improve, our occupation therapists will perform initial evaluation of pt's status upon admission and devise an individualized program for Caregiver Training Weakness - to improve, our occupation therapists will perform initial evaluation of pt's status upon admission and devise an individualized program for Aquatic Therapy, Balance, Endurance, UE ROM, and UE strengthening - Other See attached MAR (Medication Administration Record) - Diet Type Continue Regular - Diet - Liquid Texture Continue Regular - Tube Feed Continue N/A - Bladder care per protocol - Weight Bearing Precaution WBAT left LE - Skin care per protocol - Diet - Solid Texture Continue Regular - Shower allowing shower for Dementia, TBI, Stroke, or others FUNCTIONAL STATUS: UPDATED AT WEEKLY TEAM CONFERENCE - Bladder Same accident frequency: 7-Ind - No accidents in the past 7 days - Bowel Same accident frequency: 7-Ind - No accidents in the past 7 days - Walking Same score based on distance walked: 0(N/A) - Wheelchair Same score based on distance traveled: 0(N/A) FUNCTIONAL STATUS: - Self-Care A. Eating Andrew B. Grooming Marianela C. Bathing modA D. Dressing - Upper modA E. Dressing - Lower maxA F. Toileting maxA - Sphincter Control G. Bladder control Marianela H. Bowel control Marianela - Transfers Control I. Bed/Chair/Wheelchair modA J. Toilet modA K. Tub/Shower modA - Locomotion L. Walk/Wheelchair (B) modA M. Stairs ADNO - Communication N. Comprehension (B) Marianela O. Expression (B) sup - Social Cognition P. Social Interaction sup Q. Problem Solving sup R. Memory sup - Endurance Poor - Balance Poor - Safety Awareness Poor QI SCORES: - Self-Care A. Eating 05-Setup or clean-up assistance B. Oral hygiene 03-Partial/moderate assistance C. Toileting hygiene 88-Not attempted due to medical condition or safety concerns E. Shower/bathe self 02-Substantial/maximal assistance F. Upper body dressing 02-Substantial/maximal assistance G. Lower body dressing 02-Substantial/maximal assistance H. Putting on/taking off footwear 02-Substantial/maximal assistance - Mobility M. 1 step (curb) 88-Not attempted due to medical condition or safety concerns N. 4 steps 88-Not attempted due to medical condition or safety concerns O. 12 steps 88-Not attempted due to medical condition or safety concerns P. Picking up object 88-Not attempted due to medical condition or safety concerns R. Wheel 50 feet with two turns 88-Not attempted due to medical condition or safety concerns A. Roll left and right 02-Substantial/maximal assistance B. Sit to lying 03-Partial/moderate assistance C. Lying to sitting on side of bed 03-Partial/moderate assistance D. Sit to stand 02-Substantial/maximal assistance E. Chair/kue-iq-gsqak transfer 02-Substantial/maximal assistance F. Toilet transfer 88-Not attempted due to medical condition or safety concerns G. Car transfer 88-Not attempted due to medical condition or safety concerns I. Walk 10 feet 88-Not attempted due to medical condition or safety concerns J. Walk 50 feet with two turns 88-Not attempted due to medical condition or safety concerns K. Walk 150 feet 88-Not attempted due to medical condition or safety concerns L. Walking 10 feet on uneven surfaces 88-Not attempted due to medical condition or safety concerns S. Wheel 150 feet 88-Not attempted due to medical condition or safety concerns - Bladder and Bowel Bladder continence Bowel continence - Endurance Fair - Balance Poor - Safety Awareness Fair CURRENT [facility]. DEFICITS: Endurance, Balance, Mobility, Safety Awareness, and Self-Care SIGNATURE PANEL: (CDT)
[2020-03-18] MEDS: METOPROLOL TAR 25 MG TAB PO SCH ×2 (05:02→17:30)
[2020-03-18] MEDS: PANTOPRAZOLE 40MG TABLET PO SCH (06:46)
[2020-03-18] MEDS: LIDOCAINE 4% PATCH TOP SCH (08:09)
[2020-03-18] MEDS: PROMOD 30 ML DOSE PO SCH ×2 (08:13→21:05)
[2020-03-18] MEDS: ENSURE HIGH PROTEIN 237 ML CAN PO SCH (08:13)
[2020-03-18] MEDS: ASPIRIN 81 MG CHEWABLE TABLET PO SCH (08:15)
[2020-03-18] MEDS: DULOXETINE 20 MG CAP PO SCH (08:15)
[2020-03-18] MEDS: ACETAMINOPHEN 500 MG TAB PO PRN (08:15)
[2020-03-18] MEDS: LOSARTAN POTASSIUM 50 MG TABLET PO SCH (08:15)
[2020-03-18] MEDS: ONDANSETRON 4 MG (ODT) TAB PO PRN (08:15)
[2020-03-18] MEDS: APIXABAN 5 MG TABLET PO SCH ×2 (08:16→21:05)
[2020-03-18] MEDS: FE SULF/FA/VIT B COMP & C TAB PO SCH (12:33)
[2020-03-18] MEDS: CRANBERRY FRUIT EXTRACT 200 MG CAP PO SCH ×2 (12:33→21:04)
[2020-03-18] MEDS: CYANOCOBALAMIN 1,000 MCG TAB PO SCH (12:34)
--- NOTE | 2020-03-18 19:40 | R.PN ---
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 Pt denied any Shortness of Breath. Prealbumin is very low at 7.8. Will start promod. Bed mobility done with moderate assistance. Perform ed [id number] exercises in the parallel bars with moderate assistance. Ambulated 250' with contact guard assistance using a left platform walker. VITAL SIGNS Temperature: 98.1 F SBP/DBP: 145/72 Pulse: 62 Resp: 16 MEDICATION ALLERGIES: No Known Drug Allergies (NKDA) ENVIRONMENTAL ALLERGIES: - Substance Allergies None Known - Other Allergies PENICILLIN SULFA ( ANTIBIOTICS) CORTICOSTEROIDS ( GLUCOCORTICOIDS) NURSING: - Shower allowing shower - Bladder care per protocol - Skin care per protocol PRECAUTIONS: - Weight Bearing Precaution WBAT left LE ACTIVITIES OOB only with supervision THERAPIES: - Occupational Therapy Cognitive Retraining. Visual Perceptual Training. - Dietary and Nutrition Adequate Nutrition. Nutritional Education. Nutritional Supplements. - Speech Therapy Cognitive Training. Expressive Language Skills. Memory Strategies. Receptive Language Skills. Speech Intelligibility Training. PHYSICAL EXAM - Gen Alert and awake Lying in bed No apparent distress Oriented to: person, time, and place - Skin No skin breakdown. No abnormalities - Eyes No abnormalities - ENMT No abnormalities - Neck No abnormalities - CVS RRR - Chest No abnormalities - Resp Clear to auscultation - Abd Soft - GI Non distended Deferred - No abnormalities - Ext No significant edema - MSK 4+/5 weakness in left upper and lower extremity - Neuro 4/5 strength left upper and lower extremities. - Psych No abnormalities ASSESSMENT: Currently, she has deficits of Locomotion, Balance, Social Cognition, Transfers Control, Sphincter Co ntrol, Self-Care, and Communication.On 02/24/2020 Pt. presented to [facility] with sudden onset of left-side weakness.On 02/24/2020 she was admitted to [facility] with diagnosis Right CVA.He r impairment category is Stroke 01 - Left Body (Right Brain) (01.1).Pt. is now referred to [facility] for acute in-patient rehabilitation in order to maximize patient's functiona l independence in activities of daily living, strength, ROM, and mobility.Pre-morbidly, Pt. was indep endent/mod-I in Locomotion, Safety Awareness, Self-Care, Communication, and Transfers Control; and sh e had good Balance, Endurance, and Sphincter Control.Pt. is a 74 yo Right-handed female of unknown ra ce.- Rehab Goal Patient has realistic goal of being discharged at assistance level 6-Andrew to reside at Home with Fam thomas/Relatives. MDM/PLAN: - Physical Therapy Achieving independence - to improve, our physical therapists will perform initial evaluation of pt's status upon admission and devise an individualized program for Community Reintegration Activities Edema - to improve, our physical therapists will perform initial evaluation of pt's status upon admi ssion and devise an individualized program for Elevation Training, and Lymphedema Therapy Gait dysfunction - to improve, our physical therapists will perform initial evaluation of pt's statu s upon admission and devise an individualized program for Gait Training, and Wheel Chair mobility Inability to transfer - to improve, our physical therapists will perform initial evaluation of pt's status upon admission and devise an individualized program for Bed mobility Need for home safety evaluation - to improve, our physical therapists will perform initial evaluatio n of pt's status upon admission and devise an individualized program for Home Evaluation Need in caregiver upon discharge - to improve, our physical therapists will perform initial evaluati on of pt's status upon admission and devise an individualized program for Caregiver Training New precaution - to improve, our physical therapists will perform initial evaluation of pt's status upon admission and devise an individualized program for Patient precaution education Poor balance - to improve, our physical therapists will perform initial evaluation of pt's status up on admission and devise an individualized program for Balance Training Weakness - to improve, our physical therapists will perform initial evaluation of pt's status upon a dmission and devise an individualized program for Aquatic Therapy, Neuromuscular Reeducation, and Str engthening - Occupational Therapy ADL deficits - to improve, our occupation therapists will perform initial evaluation of pt's status upon admission and devise an individualized program for Bathing, Bed mobility, Community Reintegratio n, Cooking, Dressing, Eating, Fine Motor Skills, Grooming, Homemaking, Kitchen Mobility, Laundry, Pat ient Education, Safety Awareness, Splinting - Positioning, Transfers(Toilet, Tub, Shower), and Wheel Chair Management Cognitive deficits - to improve, our occupation therapists will perform initial evaluation of pt's s tatus upon admission and devise an individualized program for Cognition - orientation Need for care transition mgr - to improve, our occupation therapists will perform initial evaluation of pt's status upon admission and devise an individualized program for Caregiver Training Weakness - to improve, our occupation therapists will perform initial evaluation of pt's status upon admission and devise an individualized program for Aquatic Therapy, Balance, Endurance, UE ROM, and UE strengthening - Other See attached MAR (Medication Administration Record) - Diet Type Continue Regular - Diet - Liquid Texture Continue Regular - Tube Feed Continue N/A - Bladder care per protocol - Weight Bearing Precaution WBAT left LE - Skin care per protocol - Diet - Solid Texture Continue Regular - Shower allowing shower for Dementia, TBI, Stroke, or others FUNCTIONAL STATUS: UPDATED AT WEEKLY TEAM CONFERENCE - Bladder Same accident frequency: 7-Ind - No accidents in the past 7 days - Bowel Same accident frequency: 7-Ind - No accidents in the past 7 days - Walking Same score based on distance walked: 0(N/A) - Wheelchair Same score based on distance traveled: 0(N/A) FUNCTIONAL STATUS: - Self-Care A. Eating Andrew B. Grooming Marianela C. Bathing modA D. Dressing - Upper modA E. Dressing - Lower maxA F. Toileting maxA - Sphincter Control G. Bladder control Marianela H. Bowel control Marianela - Transfers Control I. Bed/Chair/Wheelchair modA J. Toilet modA K. Tub/Shower modA - Locomotion L. Walk/Wheelchair (B) modA M. Stairs ADNO - Communication N. Comprehension (B) Marianela O. Expression (B) sup - Social Cognition P. Social Interaction sup Q. Problem Solving sup R. Memory sup - Endurance Poor - Balance Poor - Safety Awareness Poor QI SCORES: - Self-Care A. Eating 05-Setup or clean-up assistance B. Oral hygiene 03-Partial/moderate assistance C. Toileting hygiene 88-Not attempted due to medical condition or safety concerns E. Shower/bathe self 02-Substantial/maximal assistance F. Upper body dressing 02-Substantial/maximal assistance G. Lower body dressing 02-Substantial/maximal assistance H. Putting on/taking off footwear 02-Substantial/maximal assistance - Mobility M. 1 step (curb) 88-Not attempted due to medical condition or safety concerns N. 4 steps 88-Not attempted due to medical condition or safety concerns O. 12 steps 88-Not attempted due to medical condition or safety concerns P. Picking up object 88-Not attempted due to medical condition or safety concerns R. Wheel 50 feet with two turns 88-Not attempted due to medical condition or safety concerns A. Roll left and right 02-Substantial/maximal assistance B. Sit to lying 03-Partial/moderate assistance C. Lying to sitting on side of bed 03-Partial/moderate assistance D. Sit to stand 02-Substantial/maximal assistance E. Chair/tns-fx-[id number] transfer 02-Substantial/maximal assistance F. Toilet transfer 88-Not attempted due to medical condition or safety concerns G. Car transfer 88-Not attempted due to medical condition or safety concerns I. Walk 10 feet 88-Not attempted due to medical condition or safety concerns J. Walk 50 feet with two turns 88-Not attempted due to medical condition or safety concerns K. Walk 150 feet 88-Not attempted due to medical condition or safety concerns L. Walking 10 feet on uneven surfaces 88-Not attempted due to medical condition or safety concerns S. Wheel 150 feet 88-Not attempted due to medical condition or safety concerns - Bladder and Bowel Bladder continence Bowel continence - Endurance Fair - Balance Poor - Safety Awareness Fair CURRENT [facility]. DEFICITS: Endurance, Balance, Mobility, Safety Awareness, and Self-Care SIGNATURE PANEL: (CDT)
[2020-03-19] MEDS: METOPROLOL TAR 25 MG TAB PO SCH ×2 (05:08→17:15)
[2020-03-19] MEDS: PANTOPRAZOLE 40MG TABLET PO SCH (06:20)
[2020-03-19] MEDS: ENSURE HIGH PROTEIN 237 ML CAN PO SCH (07:44)
[2020-03-19] MEDS: PROMOD 30 ML DOSE PO SCH ×2 (07:46→20:40)
[2020-03-19] MEDS: APIXABAN 5 MG TABLET PO SCH ×2 (07:46→20:39)
[2020-03-19] MEDS: ASPIRIN 81 MG CHEWABLE TABLET PO SCH (07:47)
[2020-03-19] MEDS: CRANBERRY FRUIT EXTRACT 200 MG CAP PO SCH (07:47)
[2020-03-19] MEDS: LOSARTAN POTASSIUM 50 MG TABLET PO SCH (07:47)
[2020-03-19] MEDS: DULOXETINE 20 MG CAP PO SCH (07:47)
[2020-03-19] MEDS: FE SULF/FA/VIT B COMP & C TAB PO SCH (07:47)
[2020-03-19] MEDS: CYANOCOBALAMIN 1,000 MCG TAB PO SCH (07:47)
[2020-03-19] MEDS: ONDANSETRON 4 MG (ODT) TAB PO PRN (08:56)
[2020-03-19] MEDS: ACETAMINOPHEN 500 MG TAB PO PRN (08:56)
[2020-03-19] MEDS: LIDOCAINE 4% PATCH TOP SCH (10:24)
[2020-03-19] MEDS: DOCUSATE NA 100 MG CAP PO PRN (12:21)
--- NOTE | 2020-03-19 18:17 | R.PN ---
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 Pt denied any Shortness of Breath. Prealbumin is very low at 7.8. Will start promod. Bed mobility done with moderate assistance. Perform ed [id number] exercises in the parallel bars with moderate assistance. Ambulated 170' with contact guard assistance using a left platform walker. Wheelchair mobilized 350' with minimum assistance. VITAL SIGNS Temperature: 97.6 F SBP/DBP: 120/57 Pulse: 65 Resp: 16 MEDICATION ALLERGIES: No Known Drug Allergies (NKDA) ENVIRONMENTAL ALLERGIES: - Substance Allergies None Known - Other Allergies PENICILLIN SULFA ( ANTIBIOTICS) CORTICOSTEROIDS ( GLUCOCORTICOIDS) NURSING: - Shower allowing shower - Bladder care per protocol - Skin care per protocol PRECAUTIONS: - Weight Bearing Precaution WBAT left LE ACTIVITIES OOB only with supervision THERAPIES: - Occupational Therapy Cognitive Retraining. Visual Perceptual Training. - Dietary and Nutrition Adequate Nutrition. Nutritional Education. Nutritional Supplements. - Speech Therapy Cognitive Training. Expressive Language Skills. Memory Strategies. Receptive Language Skills. Speech Intelligibility Training. PHYSICAL EXAM - Gen Alert and awake Lying in bed No apparent distress Oriented to: person, time, and place - Skin No skin breakdown. No abnormalities - Eyes No abnormalities - ENMT No abnormalities - Neck No abnormalities - CVS RRR - Chest No abnormalities - Resp Clear to auscultation - Abd Soft - GI Non distended Deferred - No abnormalities - Ext No significant edema - MSK 4+/5 weakness in left upper and lower extremity - Neuro 4/5 strength left upper and lower extremities. - Psych No abnormalities ASSESSMENT: Currently, she has deficits of Locomotion, Balance, Social Cognition, Transfers Control, Sphincter Co ntrol, Self-Care, and Communication.On 02/24/2020 Pt. presented to [facility] with sudden onset of left-side weakness.On 02/24/2020 she was admitted to [facility] with diagnosis Right CVA.He r impairment category is Stroke 01 - Left Body (Right Brain) (01.1).Pt. is now referred to [facility] for acute in-patient rehabilitation in order to maximize patient's functiona l independence in activities of daily living, strength, ROM, and mobility.Pre-morbidly, Pt. was indep endent/mod-I in Locomotion, Safety Awareness, Self-Care, Communication, and Transfers Control; and sh e had good Balance, Endurance, and Sphincter Control.Pt. is a 74 yo Right-handed female of unknown ra ce.- Rehab Goal Patient has realistic goal of being discharged at assistance level 6-Andrew to reside at Home with Fam thomas/Relatives. MDM/PLAN: - Physical Therapy Achieving independence - to improve, our physical therapists will perform initial evaluation of pt's status upon admission and devise an individualized program for Community Reintegration Activities Edema - to improve, our physical therapists will perform initial evaluation of pt's status upon admi ssion and devise an individualized program for Elevation Training, and Lymphedema Therapy Gait dysfunction - to improve, our physical therapists will perform initial evaluation of pt's statu s upon admission and devise an individualized program for Gait Training, and Wheel Chair mobility Inability to transfer - to improve, our physical therapists will perform initial evaluation of pt's status upon admission and devise an individualized program for Bed mobility Need for home safety evaluation - to improve, our physical therapists will perform initial evaluatio n of pt's status upon admission and devise an individualized program for Home Evaluation Need in caregiver upon discharge - to improve, our physical therapists will perform initial evaluati on of pt's status upon admission and devise an individualized program for Caregiver Training New precaution - to improve, our physical therapists will perform initial evaluation of pt's status upon admission and devise an individualized program for Patient precaution education Poor balance - to improve, our physical therapists will perform initial evaluation of pt's status up on admission and devise an individualized program for Balance Training Weakness - to improve, our physical therapists will perform initial evaluation of pt's status upon a dmission and devise an individualized program for Aquatic Therapy, Neuromuscular Reeducation, and Str engthening - Occupational Therapy ADL deficits - to improve, our occupation therapists will perform initial evaluation of pt's status upon admission and devise an individualized program for Bathing, Bed mobility, Community Reintegratio n, Cooking, Dressing, Eating, Fine Motor Skills, Grooming, Homemaking, Kitchen Mobility, Laundry, Pat ient Education, Safety Awareness, Splinting - Positioning, Transfers(Toilet, Tub, Shower), and Wheel Chair Management Cognitive deficits - to improve, our occupation therapists will perform initial evaluation of pt's s tatus upon admission and devise an individualized program for Cognition - orientation Need for resident care technician - to improve, our occupation therapists will perform initial evaluation of pt's status upon admission and devise an individualized program for Caregiver Training Weakness - to improve, our occupation therapists will perform initial evaluation of pt's status upon admission and devise an individualized program for Aquatic Therapy, Balance, Endurance, UE ROM, and UE strengthening - Other See attached MAR (Medication Administration Record) - Diet Type Continue Regular - Diet - Liquid Texture Continue Regular - Tube Feed Continue N/A - Bladder care per protocol - Weight Bearing Precaution WBAT left LE - Skin care per protocol - Diet - Solid Texture Continue Regular - Shower allowing shower for Dementia, TBI, Stroke, or others FUNCTIONAL STATUS: UPDATED AT WEEKLY TEAM CONFERENCE - Bladder Same accident frequency: 7-Ind - No accidents in the past 7 days - Bowel Same accident frequency: 7-Ind - No accidents in the past 7 days - Walking Same score based on distance walked: 0(N/A) - Wheelchair Same score based on distance traveled: 0(N/A) FUNCTIONAL STATUS: - Self-Care A. Eating Andrew B. Grooming Marianela C. Bathing modA D. Dressing - Upper modA E. Dressing - Lower maxA F. Toileting maxA - Sphincter Control G. Bladder control Marianela H. Bowel control Marianela - Transfers Control I. Bed/Chair/Wheelchair modA J. Toilet modA K. Tub/Shower modA - Locomotion L. Walk/Wheelchair (B) modA M. Stairs ADNO - Communication N. Comprehension (B) Marianela O. Expression (B) sup - Social Cognition P. Social Interaction sup Q. Problem Solving sup R. Memory sup - Endurance Poor - Balance Poor - Safety Awareness Poor QI SCORES: - Self-Care A. Eating 05-Setup or clean-up assistance B. Oral hygiene 03-Partial/moderate assistance C. Toileting hygiene 88-Not attempted due to medical condition or safety concerns E. Shower/bathe self 02-Substantial/maximal assistance F. Upper body dressing 02-Substantial/maximal assistance G. Lower body dressing 02-Substantial/maximal assistance H. Putting on/taking off footwear 02-Substantial/maximal assistance - Mobility M. 1 step (curb) 88-Not attempted due to medical condition or safety concerns N. 4 steps 88-Not attempted due to medical condition or safety concerns O. 12 steps 88-Not attempted due to medical condition or safety concerns P. Picking up object 88-Not attempted due to medical condition or safety concerns R. Wheel 50 feet with two turns 88-Not attempted due to medical condition or safety concerns A. Roll left and right 02-Substantial/maximal assistance B. Sit to lying 03-Partial/moderate assistance C. Lying to sitting on side of bed 03-Partial/moderate assistance D. Sit to stand 02-Substantial/maximal assistance E. Chair/qac-rv-nsasm transfer 02-Substantial/maximal assistance F. Toilet transfer 88-Not attempted due to medical condition or safety concerns G. Car transfer 88-Not attempted due to medical condition or safety concerns I. Walk 10 feet 88-Not attempted due to medical condition or safety concerns J. Walk 50 feet with two turns 88-Not attempted due to medical condition or safety concerns K. Walk 150 feet 88-Not attempted due to medical condition or safety concerns L. Walking 10 feet on uneven surfaces 88-Not attempted due to medical condition or safety concerns S. Wheel 150 feet 88-Not attempted due to medical condition or safety concerns - Bladder and Bowel Bladder continence Bowel continence - Endurance Fair - Balance Poor - Safety Awareness Fair [facility] DEFICITS: Endurance, Balance, Mobility, Safety Awareness, and Self-Care SIGNATURE PANEL: (CDT)
[2020-03-19] MEDS: DORZOLAMIDE 2% OPTH (10 ML) EACH EYE SCH (20:00)
[2020-03-19] MEDS: LATANOPROST OPTH SCH (20:40)
[2020-03-20] MEDS: METOPROLOL TAR 25 MG TAB PO SCH ×2 (05:00→17:07)
[2020-03-20 06:19] LABS: Absolute Lymphocytes (CBC) 1.5 K/uL (0.7-4.9); Basophils % 1.3 % (0-1.3); Hematocrit 33.8 % (36.0-45.0); Lymphocytes % 34.2 % (15.3-44.8); MPV 8.9 fL (7.6-11.3)
[2020-03-20] MEDS: PANTOPRAZOLE 40MG TABLET PO SCH (06:19)
[2020-03-20 06:32] LABS: Magnesium 2.2 mg/dL (1.8-2.4); Prealbumin 20.4 mg/dL (20-40)
[2020-03-20 06:54] LABS: Blood Morphology Comment NOT SEEN (NOT SEEN); Platelet Estimate ADEQ
[2020-03-20] MEDS: LIDOCAINE 4% PATCH TOP SCH (07:05)
[2020-03-20] MEDS: DORZOLAMIDE 2% OPTH (10 ML) EACH EYE SCH ×2 (07:06→20:49)
[2020-03-20] MEDS: PROMOD 30 ML DOSE PO SCH ×2 (07:56→20:49)
[2020-03-20] MEDS: ENSURE HIGH PROTEIN 237 ML CAN PO SCH (07:56)
[2020-03-20] MEDS: ASPIRIN 81 MG CHEWABLE TABLET PO SCH (07:57)
[2020-03-20] MEDS: LOSARTAN POTASSIUM 50 MG TABLET PO SCH (07:57)
[2020-03-20] MEDS: DULOXETINE 20 MG CAP PO SCH (07:57)
[2020-03-20] MEDS: APIXABAN 5 MG TABLET PO SCH ×2 (07:57→20:49)
[2020-03-20] MEDS: CYANOCOBALAMIN 1,000 MCG TAB PO SCH (07:57)
[2020-03-20] MEDS: FE SULF/FA/VIT B COMP & C TAB PO SCH (07:57)
--- NOTE | 2020-03-20 17:16 | R.PN ---
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 Pt denied any Shortness of Breath. Prealbumin improved to 20.4 from 7.8. Continue promod. Bed mobility done with moderate assistance. Pe rformed [id number] exercises in the parallel bars with moderate assistance. Ambulated 170' with contact guard assistance using a left platform walker. Wheelchair mobilized 350' with minimum assistance. VITAL SIGNS Temperature: 98.0 F SBP/DBP: 150/69 Pulse: 67 Resp: 16 MEDICATION ALLERGIES: No Known Drug Allergies (NKDA) ENVIRONMENTAL ALLERGIES: - Substance Allergies None Known - Other Allergies PENICILLIN SULFA ( ANTIBIOTICS) CORTICOSTEROIDS ( GLUCOCORTICOIDS) NURSING: - Shower allowing shower - Bladder care per protocol - Skin care per protocol PRECAUTIONS: - Weight Bearing Precaution WBAT left LE ACTIVITIES OOB only with supervision THERAPIES: - Occupational Therapy Cognitive Retraining. Visual Perceptual Training. - Dietary and Nutrition Adequate Nutrition. Nutritional Education. Nutritional Supplements. - Speech Therapy Cognitive Training. Expressive Language Skills. Memory Strategies. Receptive Language Skills. Speech Intelligibility Training. PHYSICAL EXAM - Gen Alert and awake Lying in bed No apparent distress Oriented to: person, time, and place - Skin No skin breakdown. No abnormalities - Eyes No abnormalities - ENMT No abnormalities - Neck No abnormalities - CVS RRR - Chest No abnormalities - Resp Clear to auscultation - Abd Soft - GI Non distended Deferred - No abnormalities - Ext No significant edema - MSK 4+/5 weakness in left upper and lower extremity - Neuro 4/5 strength left upper and lower extremities. - Psych No abnormalities ASSESSMENT: Currently, she has deficits of Locomotion, Balance, Social Cognition, Transfers Control, Sphincter Co ntrol, Self-Care, and Communication.On 02/24/[address] [facility] with sudden onset of left-side weakness.On 02/24/2020 she was admitted to [facility] with diagnosis Right CVA.He r impairment category is Stroke 01 - Left Body (Right Brain) (01.1).Pt. is now referred to [facility] for acute in-patient rehabilitation in order to maximize patient's functiona l independence in activities of daily living, strength, ROM, and mobility.Pre-morbidly, Pt. was indep endent/mod-I in Locomotion, Safety Awareness, Self-Care, Communication, and Transfers Control; and sh e had good Balance, Endurance, and Sphincter Control.Pt. is a 74 yo Right-handed female of unknown ra ce.- Rehab Goal Patient has realistic goal of being discharged at assistance level 6-Andrew to reside at Home with Fam thomas/Relatives. MDM/PLAN: - Physical Therapy Achieving independence - to improve, our physical therapists will perform initial evaluation of pt's status upon admission and devise an individualized program for Community Reintegration Activities Edema - to improve, our physical therapists will perform initial evaluation of pt's status upon admi ssion and devise an individualized program for Elevation Training, and Lymphedema Therapy Gait dysfunction - to improve, our physical therapists will perform initial evaluation of pt's statu s upon admission and devise an individualized program for Gait Training, and Wheel Chair mobility Inability to transfer - to improve, our physical therapists will perform initial evaluation of pt's status upon admission and devise an individualized program for Bed mobility Need for home safety evaluation - to improve, our physical therapists will perform initial evaluatio n of pt's status upon admission and devise an individualized program for Home Evaluation Need in caregiver upon discharge - to improve, our physical therapists will perform initial evaluati on of pt's status upon admission and devise an individualized program for Caregiver Training New precaution - to improve, our physical therapists will perform initial evaluation of pt's status upon admission and devise an individualized program for Patient precaution education Poor balance - to improve, our physical therapists will perform initial evaluation of pt's status up on admission and devise an individualized program for Balance Training Weakness - to improve, our physical therapists will perform initial evaluation of pt's status upon a dmission and devise an individualized program for Aquatic Therapy, Neuromuscular Reeducation, and Str engthening - Occupational Therapy ADL deficits - to improve, our occupation therapists will perform initial evaluation of pt's status upon admission and devise an individualized program for Bathing, Bed mobility, Community Reintegratio n, Cooking, Dressing, Eating, Fine Motor Skills, Grooming, Homemaking, Kitchen Mobility, Laundry, Pat ient Education, Safety Awareness, Splinting - Positioning, Transfers(Toilet, Tub, Shower), and Wheel Chair Management Cognitive deficits - to improve, our occupation therapists will perform initial evaluation of pt's s tatus upon admission and devise an individualized program for Cognition - orientation Need for gericare aide teacher - to improve, our occupation therapists will perform initial evaluation of pt's status upon admission and devise an individualized program for Caregiver Training Weakness - to improve, our occupation therapists will perform initial evaluation of pt's status upon admission and devise an individualized program for Aquatic Therapy, Balance, Endurance, UE ROM, and UE strengthening - Other See attached MAR (Medication Administration Record) - Diet Type Continue Regular - Diet - Liquid Texture Continue Regular - Tube Feed Continue N/A - Bladder care per protocol - Weight Bearing Precaution WBAT left LE - Skin care per protocol - Diet - Solid Texture Continue Regular - Shower allowing shower for Dementia, TBI, Stroke, or others FUNCTIONAL STATUS: UPDATED AT WEEKLY TEAM CONFERENCE - Bladder Same accident frequency: 7-Ind - No accidents in the past 7 days - Bowel Same accident frequency: 7-Ind - No accidents in the past 7 days - Walking Same score based on distance walked: 0(N/A) - Wheelchair Same score based on distance traveled: 0(N/A) FUNCTIONAL STATUS: - Self-Care A. Eating Andrew B. Grooming Marianela C. Bathing modA D. Dressing - Upper modA E. Dressing - Lower maxA F. Toileting maxA - Sphincter Control G. Bladder control Marianela H. Bowel control Marianela - Transfers Control I. Bed/Chair/Wheelchair modA J. Toilet modA K. Tub/Shower modA - Locomotion L. Walk/Wheelchair (B) modA M. Stairs ADNO - Communication N. Comprehension (B) Marianela O. Expression (B) sup - Social Cognition P. Social Interaction sup Q. Problem Solving sup R. Memory sup - Endurance Poor - Balance Poor - Safety Awareness Poor QI SCORES: - Self-Care A. Eating 05-Setup or clean-up assistance B. Oral hygiene 03-Partial/moderate assistance C. Toileting hygiene 88-Not attempted due to medical condition or safety concerns E. Shower/bathe self 02-Substantial/maximal assistance F. Upper body dressing 02-Substantial/maximal assistance G. Lower body dressing 02-Substantial/maximal assistance H. Putting on/taking off footwear 02-Substantial/maximal assistance - Mobility M. 1 step (curb) 88-Not attempted due to medical condition or safety concerns N. 4 steps 88-Not attempted due to medical condition or safety concerns O. 12 steps 88-Not attempted due to medical condition or safety concerns P. Picking up object 88-Not attempted due to medical condition or safety concerns R. Wheel 50 feet with two turns 88-Not attempted due to medical condition or safety concerns A. Roll left and right 02-Substantial/maximal assistance B. Sit to lying 03-Partial/moderate assistance C. Lying to sitting on side of bed 03-Partial/moderate assistance D. Sit to stand 02-Substantial/maximal assistance E. Chair/vrg-ls-ijeye transfer 02-Substantial/maximal assistance F. Toilet transfer 88-Not attempted due to medical condition or safety concerns G. Car transfer 88-Not attempted due to medical condition or safety concerns I. Walk 10 feet 88-Not attempted due to medical condition or safety concerns J. Walk 50 feet with two turns 88-Not attempted due to medical condition or safety concerns K. Walk 150 feet 88-Not attempted due to medical condition or safety concerns L. Walking 10 feet on uneven surfaces 88-Not attempted due to medical condition or safety concerns S. Wheel 150 feet 88-Not attempted due to medical condition or safety concerns - Bladder and Bowel Bladder continence Bowel continence - Endurance Fair - Balance Poor - Safety Awareness Fair [facility] DEFIC[facility]: Endurance, Balance, Mobility, Safety Awareness, and Self-Care SIGNATURE PANEL: (CDT)
[2020-03-20] MEDS: LATANOPROST OPTH SCH (20:49)
[2020-03-21] MEDS: METOPROLOL TAR 25 MG TAB PO SCH ×2 (05:35→17:43)
[2020-03-21] MEDS: PANTOPRAZOLE 40MG TABLET PO SCH (05:35)
[2020-03-21] MEDS: APIXABAN 5 MG TABLET PO SCH ×2 (09:43→19:35)
[2020-03-21] MEDS: ASPIRIN 81 MG CHEWABLE TABLET PO SCH (09:43)
[2020-03-21] MEDS: LOSARTAN POTASSIUM 50 MG TABLET PO SCH (09:43)
[2020-03-21] MEDS: CYANOCOBALAMIN 1,000 MCG TAB PO SCH (09:43)
[2020-03-21] MEDS: DORZOLAMIDE 2% OPTH (10 ML) EACH EYE SCH ×2 (09:43→19:34)
[2020-03-21] MEDS: FE SULF/FA/VIT B COMP & C TAB PO SCH (09:43)
[2020-03-21] MEDS: DULOXETINE 20 MG CAP PO SCH (09:44)
[2020-03-21] MEDS: LIDOCAINE 4% PATCH TOP SCH (09:44)
[2020-03-21] MEDS: ENSURE HIGH PROTEIN 237 ML CAN PO SCH (09:45)
[2020-03-21] MEDS: PROMOD 30 ML DOSE PO SCH ×2 (09:45→19:35)
--- NOTE | 2020-03-21 09:45 | P.RH.PN ---
Estimated Length of Stay: 24 Expected Discharge Date: 03/26/20 Discharge Disposition Plan: Home Family Support: Yes Half-Way Goal: Mobility, Transfers, Self Care Vital Signs: Last Vital Signs Temp 98.5 F 03/21/20 08:01 Pulse 62 03/21/20 08:01 Resp 18 03/21/20 08:01 BP 144/62 H 03/21/20 08:01 Pulse Ox 96 03/21/20 08:01 Laboratory: Laboratory Last Values WBC 4.5 K/uL (4.3-10.9) D 03/20/20 05:44 RBC 4.00 M/uL (3.86-4.86) 03/20/20 05:44 Hgb 11.2 g/dL (12.0-15.0) L 03/20/20 05:44 Hct 33.8 % (36.0-45.0) L 03/20/20 05:44 MCV 84.4 fL (80-100) 03/20/20 05:44 MCH 28.0 pg (27.0-35.0) 03/20/20 05:44 MCHC 33.2 g/dL (32.0-36.0) 03/20/20 05:44 RDW 17.0 % (12.1-15.2) H 03/20/20 05:44 Plt Count 263 K/uL (152-406) D 03/20/20 05:44 MPV 8.9 fL (7.6-11.3) 03/20/20 05:44 Neutrophils % 37.6 % (41.7-73.7) L 03/20/20 05:44 Lymphocytes % 34.2 % (15.3-44.8) 03/20/20 05:44 Monocytes % 15.3 % (3.3-12.3) H 03/20/20 05:44 Eosinophils % 11.6 % (0-4.4) H 03/20/20 05:44 Basophils % 1.3 % (0-1.3) 03/20/20 05:44 Absolute Neutrophils 1.7 K/uL (1.8-8.0) L 03/20/20 05:44 Segmented Neutrophils 43 % (40-80) 03/20/20 05:44 Absolute Lymphocytes 1.5 K/uL (0.7-4.9) 03/20/20 05:44 Lymphocytes 30 % (15-42) 03/20/20 05:44 Monocytes 19 % (0-10) H 03/20/20 05:44 Absolute Monocytes 0.7 K/uL (0.1-1.3) 03/20/20 05:44 Eosinophils 6 % (0-3) H 03/20/20 05:44 Absolute Eosinophils 0.5 K/uL (0-0.5) 03/20/20 05:44 Absolute Basophils 0.1 K/uL (0-0.5) 03/20/20 05:44 Atypical Lymphocytes 2 % 03/20/20 05:44 Platelet Estimate Adeq 03/20/20 05:44 Morphology Comment Not seen (NOT SEEN) 03/20/20 05:44 Sodium 134 mmol/L (136-145) L 03/20/20 05:41 Potassium 4.0 mmol/L (3.5-5.1) 03/20/20 05:41 Chloride 99 mmol/L (98-107) 03/20/20 05:41 Carbon Dioxide 27 mmol/L (21-32) 03/20/20 05:41 BUN 16 mg/dL (7-18) 03/20/20 05:41 Creatinine 0.77 mg/dL (0.55-1.3) 03/20/20 05:41 Estimated GFR 73 mL/min (=/>90) L 03/20/20 05:41 Glucose 92 mg/dL (74-106) 03/20/20 05:41 Calcium 8.7 mg/dL (8.5-10.1) 03/20/20 05:41 Magnesium 2.2 mg/dL (1.8-2.4) 03/20/20 05:41 Albumin 3.0 g/dL (3.4-5.0) L 03/20/20 05:41 Prealbumin 20.4 mg/dL (20-40) 03/20/20 05:41 Urine Color Yellow 03/13/20 07:15 Urine Appearance Clear 03/13/20 07:15 Urine pH 7.0 (5.0-7.0) 03/13/20 07:15 Ur Specific Freedom <=1.005 (1.005-1.030) 03/13/20 07:15 Glucose (UA)(Auto) Negative (NEG) 03/13/20 07:15 Urine Ketones Negative (NEG) 03/13/20 07:15 Urine Blood Negative (NEG) 03/13/20 07:15 Urine Nitrite Negative (NEG) 03/13/20 07:15 Urine Bilirubin Negative (NEG) 03/13/20 07:15 Urine Urobilinogen 1.0 mg/dL (0.2-1.0) 03/13/20 07:15 Ur Leukocyte Esterase Negative (NEG) 03/13/20 07:15 Urine RBC 5-10 /HPF (NONE SEEN) H 03/03/20 19:30 Urine WBC 5-10 /HPF (<5) H 03/03/20 19:30 Ur Squamous Epith Cells 10-20 /HPF (NONE SEEN) H 03/03/20 19:30 Urine Bacteria <20 /HPF (<20) 03/03/20 19:30 Urine Mucus 2+ /HPF (NONE SEEN) 03/03/20 19:30 Urine Culture Reflexed Not needed 03/03/20 19:30 Urine Total Protein Negative (NEG) 03/13/20 07:15 SARS-CoV-2 RNA (RT-PCR) Negative (NEGATIVE) 03/10/20 18:20 Weight: 148 lb 4.8 oz Wound Present: No Closed Surgical Incision Present: No Negative Pressure Wound Therapy Present: No Physician Update: Labs reviewed and are stable. Her left arm functional strength is improving slowly. However she requires much more therapy. Her will come in for training. Pain Issues: Taking Tylenol, Gapapentin, Hydrocodone, Tramadol, Lidocaine patch. Nutritional Needs: Taking hemocyte plus, promod, B12 and Ensure. Psychosocial Needs: Taking Cymbalta. Comment: Rashes on the buttocks is better. Functional Improvement: pt has demonstrated progress with her functional mobility and transfers. pt has improved technique and safety during ambulation and functional transfers. pt is motivated but fatigues easily. Skilled PT services remain necessary to enhance functional performance. Summary: Patient's care plan and psychology professor goals have been reviewed and revised as necessary. Please see the Rehabilitation Signature page for all necessary signatures.
[2020-03-21] MEDS: LATANOPROST OPTH SCH (19:35)
[2020-03-22] MEDS: METOPROLOL TAR 25 MG TAB PO SCH ×2 (05:06→16:58)
[2020-03-22 05:41] VITALS: BMI 26.6
[2020-03-22] MEDS: PANTOPRAZOLE 40MG TABLET PO SCH (08:02)
[2020-03-22] MEDS: LIDOCAINE 4% PATCH TOP SCH (09:13)
[2020-03-22] MEDS: APIXABAN 5 MG TABLET PO SCH ×2 (09:14→19:52)
[2020-03-22] MEDS: DULOXETINE 20 MG CAP PO SCH (09:14)
[2020-03-22] MEDS: CYANOCOBALAMIN 1,000 MCG TAB PO SCH (09:14)
[2020-03-22] MEDS: LOSARTAN POTASSIUM 50 MG TABLET PO SCH (09:14)
[2020-03-22] MEDS: FE SULF/FA/VIT B COMP & C TAB PO SCH (09:14)
[2020-03-22] MEDS: ASPIRIN 81 MG CHEWABLE TABLET PO SCH (09:14)
[2020-03-22] MEDS: DORZOLAMIDE 2% OPTH (10 ML) EACH EYE SCH ×2 (09:19→19:52)
[2020-03-22] MEDS: PROMOD 30 ML DOSE PO SCH ×2 (09:19→19:52)
[2020-03-22] MEDS: ENSURE HIGH PROTEIN 237 ML CAN PO SCH (09:20)
[2020-03-22] MEDS: DOCUSATE NA 100 MG CAP PO PRN (13:36)
[2020-03-22] MEDS: LATANOPROST OPTH SCH (19:52)
[2020-03-23] MEDS: METOPROLOL TAR 25 MG TAB PO SCH ×2 (05:12→17:11)
[2020-03-23] MEDS: PANTOPRAZOLE 40MG TABLET PO SCH (07:40)
[2020-03-23] MEDS: LIDOCAINE 4% PATCH TOP SCH (08:20)
[2020-03-23] MEDS: APIXABAN 5 MG TABLET PO SCH ×2 (08:20→19:50)
[2020-03-23] MEDS: LOSARTAN POTASSIUM 50 MG TABLET PO SCH (08:20)
[2020-03-23] MEDS: ASPIRIN 81 MG CHEWABLE TABLET PO SCH (08:21)
[2020-03-23] MEDS: DULOXETINE 20 MG CAP PO SCH (08:21)
[2020-03-23] MEDS: CYANOCOBALAMIN 1,000 MCG TAB PO SCH (08:21)
[2020-03-23] MEDS: FE SULF/FA/VIT B COMP & C TAB PO SCH (08:21)
[2020-03-23] MEDS: PROMOD 30 ML DOSE PO SCH ×2 (09:49→19:50)
[2020-03-23] MEDS: ENSURE HIGH PROTEIN 237 ML CAN PO SCH (09:49)
[2020-03-23] MEDS: DORZOLAMIDE 2% OPTH (10 ML) EACH EYE SCH ×2 (09:50→19:50)
[2020-03-23] MEDS: DOCUSATE NA 100 MG CAP PO PRN (17:11)
[2020-03-23] MEDS: LATANOPROST OPTH SCH (19:50)
[2020-03-24] MEDS: METOPROLOL TAR 25 MG TAB PO SCH ×3 (05:03→17:07)
[2020-03-24] MEDS: PANTOPRAZOLE 40MG TABLET PO SCH (06:24)
[2020-03-24] MEDS: DORZOLAMIDE 2% OPTH (10 ML) EACH EYE SCH ×2 (06:55→19:20)
[2020-03-24] MEDS: ONDANSETRON 4 MG (ODT) TAB PO PRN ×2 (07:32→12:19)
[2020-03-24] MEDS: ACETAMINOPHEN 500 MG TAB PO PRN ×2 (07:32→12:20)
[2020-03-24] MEDS: PROMOD 30 ML DOSE PO SCH ×2 (07:47→19:20)
[2020-03-24] MEDS: ENSURE HIGH PROTEIN 237 ML CAN PO SCH (07:47)
[2020-03-24] MEDS: APIXABAN 5 MG TABLET PO SCH ×2 (07:48→19:19)
[2020-03-24] MEDS: DULOXETINE 20 MG CAP PO SCH (07:48)
[2020-03-24] MEDS: FE SULF/FA/VIT B COMP & C TAB PO SCH (07:48)
[2020-03-24] MEDS: CYANOCOBALAMIN 1,000 MCG TAB PO SCH (07:48)
[2020-03-24] MEDS: LOSARTAN POTASSIUM 50 MG TABLET PO SCH (07:48)
[2020-03-24] MEDS: ASPIRIN 81 MG CHEWABLE TABLET PO SCH (07:48)
[2020-03-24] MEDS: LIDOCAINE 4% PATCH TOP SCH (09:28)
--- NOTE | 2020-03-24 10:40 | P.PN ---
Date of Service: 03/24/20 Mrs. Mendez is a 74-year-old patient with a right hemispheric stroke and significant left-side Hemiparesis. While she can ambulated 75 feet with a rolling walker, she requires multiple rest breaks and contact guard assistance to prevent falling, due to left lower extremity adduction during swing gait. Therefore, it is strongly recommended that she has a wheelchair on discharge for household distances to minimize her fall risk. She can efficiently mobilize a wheelchair with supervision to modified independence level of assistance.
--- NOTE | 2020-03-24 17:35 | R.PN ---
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 Pt denied any Shortness of Breath. Prealbumin improved to 20.4 from 7.8. Continue promod. Bed mobility done with moderate assistance. Pe rformed [id number] exercises in the parallel bars with moderate assistance. Ambulated 345' with contact guard assistance using a left platform walker. Wheelchair mobilized 150' with independence. VITAL SIGNS Temperature: 97.8 F SBP/DBP: 149/70 Pulse: 68 Resp: 16 MEDICATION ALLERGIES: No Known Drug Allergies (NKDA) ENVIRONMENTAL ALLERGIES: - Substance Allergies None Known - Other Allergies PENICILLIN SULFA ( ANTIBIOTICS) CORTICOSTEROIDS ( GLUCOCORTICOIDS) NURSING: - Shower allowing shower - Bladder care per protocol - Skin care per protocol PRECAUTIONS: - Weight Bearing Precaution WBAT left LE ACTIVITIES OOB only with supervision THERAPIES: - Occupational Therapy Cognitive Retraining. Visual Perceptual Training. - Dietary and Nutrition Adequate Nutrition. Nutritional Education. Nutritional Supplements. - Speech Therapy Cognitive Training. Expressive Language Skills. Memory Strategies. Receptive Language Skills. Speech Intelligibility Training. PHYSICAL EXAM - Gen Alert and awake Lying in bed No apparent distress Oriented to: person, time, and place - Skin No skin breakdown. No abnormalities - Eyes No abnormalities - ENMT No abnormalities - Neck No abnormalities - CVS RRR - Chest No abnormalities - Resp Clear to auscultation - Abd Soft - GI Non distended Deferred - No abnormalities - Ext No significant edema - MSK 4+/5 weakness in left upper and lower extremity - Neuro 4/5 strength left upper and lower extremities. - Psych No abnormalities ASSESSMENT: Currently, she has deficits of Locomotion, Balance, Social Cognition, Transfers Control, Sphincter Co ntrol, Self-Care, and Communication.On 02/24/2020 Pt. presented to [facility] with sudden onset of left-side weakness.On 02/24/2020 she was admitted to [facility] with diagnosis Right CVA.He r impairment category is Stroke 01 - Left Body (Right Brain) (01.1).Pt. is now referred to [facility] for acute in-patient rehabilitation in order to maximize patient's functiona l independence in activities of daily living, strength, ROM, and mobility.Pre-morbidly, Pt. was indep endent/mod-I in Locomotion, Safety Awareness, Self-Care, Communication, and Transfers Control; and sh e had good Balance, Endurance, and Sphincter Control.Pt. is a 74 yo Right-handed female of unknown ra ce.- Rehab Goal Patient has realistic goal of being discharged at assistance level 6-Andrew to reside at Home with Fam thomas/Relatives. MDM/PLAN: - Physical Therapy Achieving independence - to improve, our physical therapists will perform initial evaluation of pt's status upon admission and devise an individualized program for Community Reintegration Activities Edema - to improve, our physical therapists will perform initial evaluation of pt's status upon admi ssion and devise an individualized program for Elevation Training, and Lymphedema Therapy Gait dysfunction - to improve, our physical therapists will perform initial evaluation of pt's statu s upon admission and devise an individualized program for Gait Training, and Wheel Chair mobility Inability to transfer - to improve, our physical therapists will perform initial evaluation of pt's status upon admission and devise an individualized program for Bed mobility Need for home safety evaluation - to improve, our physical therapists will perform initial evaluatio n of pt's status upon admission and devise an individualized program for Home Evaluation Need in caregiver upon discharge - to improve, our physical therapists will perform initial evaluati on of pt's status upon admission and devise an individualized program for Caregiver Training New precaution - to improve, our physical therapists will perform initial evaluation of pt's status upon admission and devise an individualized program for Patient precaution education Poor balance - to improve, our physical therapists will perform initial evaluation of pt's status up on admission and devise an individualized program for Balance Training Weakness - to improve, our physical therapists will perform initial evaluation of pt's status upon a dmission and devise an individualized program for Aquatic Therapy, Neuromuscular Reeducation, and Str engthening - Occupational Therapy ADL deficits - to improve, our occupation therapists will perform initial evaluation of pt's status upon admission and devise an individualized program for Bathing, Bed mobility, Community Reintegratio n, Cooking, Dressing, Eating, Fine Motor Skills, Grooming, Homemaking, Kitchen Mobility, Laundry, Pat ient Education, Safety Awareness, Splinting - Positioning, Transfers(Toilet, Tub, Shower), and Wheel Chair Management Cognitive deficits - to improve, our occupation therapists will perform initial evaluation of pt's s tatus upon admission and devise an individualized program for Cognition - orientation Need for director of critical care - to improve, our occupation therapists will perform initial evaluation of pt's status upon admission and devise an individualized program for Caregiver Training Weakness - to improve, our occupation therapists will perform initial evaluation of pt's status upon admission and devise an individualized program for Aquatic Therapy, Balance, Endurance, UE ROM, and UE strengthening - Other See attached MAR (Medication Administration Record) - Diet Type Continue Regular - Diet - Liquid Texture Continue Regular - Tube Feed Continue N/A - Bladder care per protocol - Weight Bearing Precaution WBAT left LE - Skin care per protocol - Diet - Solid Texture Continue Regular - Shower allowing shower for Dementia, TBI, Stroke, or others FUNCTIONAL STATUS: UPDATED AT WEEKLY TEAM CONFERENCE - Bladder Same accident frequency: 7-Ind - No accidents in the past 7 days - Bowel Same accident frequency: 7-Ind - No accidents in the past 7 days - Walking Same score based on distance walked: 0(N/A) - Wheelchair Same score based on distance traveled: 0(N/A) FUNCTIONAL STATUS: - Self-Care A. Eating Andrew B. Grooming Marianela C. Bathing modA D. Dressing - Upper modA E. Dressing - Lower maxA F. Toileting maxA - Sphincter Control G. Bladder control Marianela H. Bowel control Marianela - Transfers Control I. Bed/Chair/Wheelchair modA J. Toilet modA K. Tub/Shower modA - Locomotion L. Walk/Wheelchair (B) modA M. Stairs ADNO - Communication N. Comprehension (B) Marianela O. Expression (B) sup - Social Cognition P. Social Interaction sup Q. Problem Solving sup R. Memory sup - Endurance Poor - Balance Poor - Safety Awareness Poor QI SCORES: - Self-Care A. Eating 05-Setup or clean-up assistance B. Oral hygiene 03-Partial/moderate assistance C. Toileting hygiene 88-Not attempted due to medical condition or safety concerns E. Shower/bathe self 02-Substantial/maximal assistance F. Upper body dressing 02-Substantial/maximal assistance G. Lower body dressing 02-Substantial/maximal assistance H. Putting on/taking off footwear 02-Substantial/maximal assistance - Mobility M. 1 step (curb) 88-Not attempted due to medical condition or safety concerns N. 4 steps 88-Not attempted due to medical condition or safety concerns O. 12 steps 88-Not attempted due to medical condition or safety concerns P. Picking up object 88-Not attempted due to medical condition or safety concerns R. Wheel 50 feet with two turns 88-Not attempted due to medical condition or safety concerns A. Roll left and right 02-Substantial/maximal assistance B. Sit to lying 03-Partial/moderate assistance C. Lying to sitting on side of bed 03-Partial/moderate assistance D. Sit to stand 02-Substantial/maximal assistance E. Chair/beu-hy-ngxtm transfer 02-Substantial/maximal assistance F. Toilet transfer 88-Not attempted due to medical condition or safety concerns G. Car transfer 88-Not attempted due to medical condition or safety concerns I. Walk 10 feet 88-Not attempted due to medical condition or safety concerns J. Walk 50 feet with two turns 88-Not attempted due to medical condition or safety concerns K. Walk 150 feet 88-Not attempted due to medical condition or safety concerns L. Walking 10 feet on uneven surfaces 88-Not attempted due to medical condition or safety concerns S. Wheel 150 feet 88-Not attempted due to medical condition or safety concerns - Bladder and Bowel Bladder continence Bowel continence - Endurance Fair - Balance Poor - Safety Awareness Fair [facility] DEFICITS: Endurance, Balance, Mobility, Safety Awareness, and Self-Care SIGNATURE PANEL: (CDT)
[2020-03-24] MEDS: LATANOPROST OPTH SCH (20:44)
[2020-03-25] MEDS: METOPROLOL TAR 25 MG TAB PO SCH ×2 (05:03→17:20)
[2020-03-25] MEDS: CYANOCOBALAMIN 1,000 MCG TAB PO SCH (08:00)
[2020-03-25] MEDS: DULOXETINE 20 MG CAP PO SCH (08:16)
[2020-03-25] MEDS: LOSARTAN POTASSIUM 50 MG TABLET PO SCH (08:17)
[2020-03-25] MEDS: LIDOCAINE 4% PATCH TOP SCH (08:17)
[2020-03-25] MEDS: FE SULF/FA/VIT B COMP & C TAB PO SCH (08:17)
[2020-03-25] MEDS: APIXABAN 5 MG TABLET PO SCH ×2 (08:17→20:30)
[2020-03-25] MEDS: PANTOPRAZOLE 40MG TABLET PO SCH (08:17)
[2020-03-25] MEDS: ASPIRIN 81 MG CHEWABLE TABLET PO SCH (08:17)
[2020-03-25] MEDS: ENSURE HIGH PROTEIN 237 ML CAN PO SCH (08:17)
[2020-03-25] MEDS: PROMOD 30 ML DOSE PO SCH ×2 (08:18→20:30)
[2020-03-25] MEDS: DORZOLAMIDE 2% OPTH (10 ML) EACH EYE SCH ×2 (08:28→20:00)
--- NOTE | 2020-03-25 18:49 | R.PN ---
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 Pt denied any Shortness of Breath. Prealbumin improved to 20.4 from 7.8. Continue promod. Bed mobility done with moderate assistance. Pe rformed zwn-ti-bkwto exercises in the parallel bars with moderate assistance. Ambulated 345' with contact guard assistance using a left platform walker. Wheelchair mobilized 150' with independence. WBC 4.5, Hgb 11.2. She will be discharged home in the AM with continued therapy via home health. VITAL SIGNS Temperature: 97.4 F SBP/DBP: 157/72 Pulse: 61 Resp: 16 MEDICATION ALLERGIES: No Known Drug Allergies (NKDA) ENVIRONMENTAL ALLERGIES: - Substance Allergies None Known - Other Allergies PENICILLIN SULFA ( ANTIBIOTICS) CORTICOSTEROIDS ( GLUCOCORTICOIDS) NURSING: - Shower allowing shower - Bladder care per protocol - Skin care per protocol PRECAUTIONS: - Weight Bearing Precaution WBAT left LE ACTIVITIES OOB only with supervision THERAPIES: - Occupational Therapy Cognitive Retraining. Visual Perceptual Training. - Dietary and Nutrition Adequate Nutrition. Nutritional Education. Nutritional Supplements. - Speech Therapy Cognitive Training. Expressive Language Skills. Memory Strategies. Receptive Language Skills. Speech Intelligibility Training. PHYSICAL EXAM - Gen Alert and awake Lying in bed No apparent distress Oriented to: person, time, and place - Skin No skin breakdown. No abnormalities - Eyes No abnormalities - ENMT No abnormalities - Neck No abnormalities - CVS RRR - Chest No abnormalities - Resp Clear to auscultation - Abd Soft - GI Non distended Deferred - No abnormalities - Ext No significant edema - MSK 4+/5 weakness in left upper and lower extremity - Neuro 4/5 strength left upper and lower extremities. - Psych No abnormalities ASSESSMENT: Currently, she has deficits of Locomotion, Balance, Social Cognition, Transfers Control, Sphincter Co ntrol, Self-Care, and Communication.On 02/24/2020 Pt. presented to [facility] with sudden onset of left-side weakness.On 02/24/2020 she was admitted to [facility] with diagnosis Right CVA.He r impairment category is Stroke 01 - Left Body (Right Brain) (01.1).Pt. is now referred to [facility] for acute in-patient rehabilitation in order to maximize patient's functiona l independence in activities of daily living, strength, ROM, and mobility.Pre-morbidly, Pt. was indep endent/mod-I in Locomotion, Safety Awareness, Self-Care, Communication, and Transfers Control; and sh e had good Balance, Endurance, and Sphincter Control.Pt. is a 74 yo Right-handed female of unknown ra ce.- Rehab Goal Patient has realistic goal of being discharged at assistance level 6-Andrew to reside at Home with Fam thomas/Relatives. MDM/PLAN: - Physical Therapy Achieving independence - to improve, our physical therapists will perform initial evaluation of pt's status upon admission and devise an individualized program for Community Reintegration Activities Edema - to improve, our physical therapists will perform initial evaluation of pt's status upon admi ssion and devise an individualized program for Elevation Training, and Lymphedema Therapy Gait dysfunction - to improve, our physical therapists will perform initial evaluation of pt's statu s upon admission and devise an individualized program for Gait Training, and Wheel Chair mobility Inability to transfer - to improve, our physical therapists will perform initial evaluation of pt's status upon admission and devise an individualized program for Bed mobility Need for home safety evaluation - to improve, our physical therapists will perform initial evaluatio n of pt's status upon admission and devise an individualized program for Home Evaluation Need in caregiver upon discharge - to improve, our physical therapists will perform initial evaluati on of pt's status upon admission and devise an individualized program for Caregiver Training New precaution - to improve, our physical therapists will perform initial evaluation of pt's status upon admission and devise an individualized program for Patient precaution education Poor balance - to improve, our physical therapists will perform initial evaluation of pt's status up on admission and devise an individualized program for Balance Training Weakness - to improve, our physical therapists will perform initial evaluation of pt's status upon a dmission and devise an individualized program for Aquatic Therapy, Neuromuscular Reeducation, and Str engthening - Occupational Therapy ADL deficits - to improve, our occupation therapists will perform initial evaluation of pt's status upon admission and devise an individualized program for Bathing, Bed mobility, Community Reintegratio n, Cooking, Dressing, Eating, Fine Motor Skills, Grooming, Homemaking, Kitchen Mobility, Laundry, Pat ient Education, Safety Awareness, Splinting - Positioning, Transfers(Toilet, Tub, Shower), and Wheel Chair Management Cognitive deficits - to improve, our occupation therapists will perform initial evaluation of pt's s tatus upon admission and devise an individualized program for Cognition - orientation Need for health care facilities inspector - to improve, our occupation therapists will perform initial evaluation of pt's status upon admission and devise an individualized program for Caregiver Training Weakness - to improve, our occupation therapists will perform initial evaluation of pt's status upon admission and devise an individualized program for Aquatic Therapy, Balance, Endurance, UE ROM, and UE strengthening - Other See attached MAR (Medication Administration Record) - Diet Type Continue Regular - Diet - Liquid Texture Continue Regular - Tube Feed Continue N/A - Bladder care per protocol - Weight Bearing Precaution WBAT left LE - Skin care per protocol - Diet - Solid Texture Continue Regular - Shower allowing shower for Dementia, TBI, Stroke, or others FUNCTIONAL STATUS: UPDATED AT WEEKLY TEAM CONFERENCE - Bladder Same accident frequency: 7-Ind - No accidents in the past 7 days - Bowel Same accident frequency: 7-Ind - No accidents in the past 7 days - Walking Same score based on distance walked: 0(N/A) - Wheelchair Same score based on distance traveled: 0(N/A) FUNCTIONAL STATUS: - Self-Care A. Eating Andrew B. Grooming Marianela C. Bathing modA D. Dressing - Upper modA E. Dressing - Lower maxA F. Toileting maxA - Sphincter Control G. Bladder control Marianela H. Bowel control Marianela - Transfers Control I. Bed/Chair/Wheelchair modA J. Toilet modA K. Tub/Shower modA - Locomotion L. Walk/Wheelchair (B) modA M. Stairs ADNO - Communication N. Comprehension (B) Marianela O. Expression (B) sup - Social Cognition P. Social Interaction sup Q. Problem Solving sup R. Memory sup - Endurance Poor - Balance Poor - Safety Awareness Poor QI SCORES: - Self-Care A. Eating 05-Setup or clean-up assistance B. Oral hygiene 03-Partial/moderate assistance C. Toileting hygiene 88-Not attempted due to medical condition or safety concerns E. Shower/bathe self 02-Substantial/maximal assistance F. Upper body dressing 02-Substantial/maximal assistance G. Lower body dressing 02-Substantial/maximal assistance H. Putting on/taking off footwear 02-Substantial/maximal assistance - Mobility M. 1 step (curb) 88-Not attempted due to medical condition or safety concerns N. 4 steps 88-Not attempted due to medical condition or safety concerns O. 12 steps 88-Not attempted due to medical condition or safety concerns P. Picking up object 88-Not attempted due to medical condition or safety concerns R. Wheel 50 feet with two turns 88-Not attempted due to medical condition or safety concerns A. Roll left and right 02-Substantial/maximal assistance B. Sit to lying 03-Partial/moderate assistance C. Lying to sitting on side of bed 03-Partial/moderate assistance D. Sit to stand 02-Substantial/maximal assistance E. Chair/srk-ci-uqohd transfer 02-Substantial/maximal assistance F. Toilet transfer 88-Not attempted due to medical condition or safety concerns G. Car transfer 88-Not attempted due to medical condition or safety concerns I. Walk 10 feet 88-Not attempted due to medical condition or safety concerns J. Walk 50 feet with two turns 88-Not attempted due to medical condition or safety concerns K. Walk 150 feet 88-Not attempted due to medical condition or safety concerns L. Walking 10 feet on uneven surfaces 88-Not attempted due to medical condition or safety concerns S. Wheel 150 feet 88-Not attempted due to medical condition or safety concerns - Bladder and Bowel Bladder continence Bowel continence - Endurance Fair - Balance Poor - Safety Awareness Fair [facility] DEFIC[facility]: Endurance, Balance, Mobility, Safety Awareness, and Self-Care SIGNATURE PANEL: (CDT)
[2020-03-25] MEDS: LATANOPROST OPTH SCH (20:31)
[2020-03-26] MEDS: METOPROLOL TAR 25 MG TAB PO SCH (05:05)
[2020-03-26] MEDS: PANTOPRAZOLE 40MG TABLET PO SCH (06:30)
[2020-03-26 07:15] VITALS: BP 156/62; TEMP 96.8
[2020-03-26] MEDS: ENSURE HIGH PROTEIN 237 ML CAN PO SCH (08:00)
[2020-03-26] MEDS: PROMOD 30 ML DOSE PO SCH (08:00)
[2020-03-26] MEDS: DORZOLAMIDE 2% OPTH (10 ML) EACH EYE SCH (08:00)
[2020-03-26] MEDS: LIDOCAINE 4% PATCH TOP SCH (08:32)
[2020-03-26] MEDS: LOSARTAN POTASSIUM 50 MG TABLET PO SCH (08:32)
[2020-03-26] MEDS: APIXABAN 5 MG TABLET PO SCH (08:32)
[2020-03-26] MEDS: DULOXETINE 20 MG CAP PO SCH (08:33)
[2020-03-26] MEDS: ASPIRIN 81 MG CHEWABLE TABLET PO SCH (08:33)
[2020-03-26] MEDS: CYANOCOBALAMIN 1,000 MCG TAB PO SCH (08:33)
[2020-03-26] MEDS: FE SULF/FA/VIT B COMP & C TAB PO SCH (08:33)
--- NOTE | 2020-03-26 11:45 | FAST ---
[employer] FORM SHIFT START DATE/TIME: 03/26/2020 07:00 (CDT) SHIFT END DATE/TIME: 03/26/2020 19:00 (CDT) NAME JOSE YANG DATE OF : 1945 DATE OF ADMISSION: 03/03/2020 17:05 (CDT) PHONE: AGE: 74 SSN# [id number] GENDER: Female ENCOUNTER PHYSICIAN: Dr. Veto Truong M.D. ADMISSION DIAGNOSIS: - Stroke 01 - Left Body (Right Brain) (01.1) Right CVA. EATING: EATING - STEP 1: Does the patient complete the activity by him/herself with no assistance (physical, verbal/nonverbal cueing, setup/clean-up)? No. EATING - STEP 2: Does the patient need only setup/clean-up assistance from one helper? Yes. 1. [id number] ADMISSION PERFORMANCE: Setup or clean-up assistance CODE: 05 ORAL HYGIENE: ORAL HYGIENE - STEP 1: Does the patient complete the activity by him/herself with no assistance (physical, verbal/nonverbal cueing, setup/clean-up)? No. ORAL HYGIENE - STEP 2: Does the patient need only setup/clean-up assistance from one helper? Yes. 1. [id number] ADMISSION PERFORMANCE: Setup or clean-up assistance CODE: 05 TOILETING HYGIENE: TOILETING HYGIENE - STEP 1: Does the patient complete the activity by him/herself with no assistance (physical, verbal/nonverbal cueing, setup/clean-up)? No. TOILETING HYGIENE - STEP 2: Does the patient need only setup/clean-up assistance from one helper? Yes. 1. [id number] ADMISSION PERFORMANCE: Setup or clean-up assistance CODE: 05 BATHING: Not assessed/no information CODE: - DRESSING - UPPER BODY: DRESSING - UPPER BODY - STEP 1: Does the patient complete the activity by him/herself with no assistance (physical, verbal/nonverbal cueing, setup/clean-up)? No. DRESSING - UPPER BODY - STEP 2: Does the patient need only setup/clean-up assistance from one helper? No. DRESSING - UPPER BODY - STEP 3: Does the patient need only verbal/nonverbal cueing or touching/steadying/contact guard assistance fro m one helper? Yes. 1. [id number] ADMISSION PERFORMANCE: Supervision or touching assistance CODE: 04 DRESSING - LOWER BODY: DRESSING - LOWER BODY - STEP 1: Does the patient complete the activity by him/herself with no assistance (physical, verbal/nonverbal cueing, setup/clean-up)? No. DRESSING - LOWER BODY - STEP 2: Does the patient need only setup/clean-up assistance from one helper? No. DRESSING - LOWER BODY - STEP 3: Does the patient need only verbal/nonverbal cueing or touching/steadying/contact guard assistance fro m one helper? Yes. 1. [id number] ADMISSION PERFORMANCE: Supervision or touching assistance CODE: 04 PUTTING ON/TAKING OFF FOOTWEAR: FOOTWEAR - STEP 1: Does the patient complete the activity by him/herself with no assistance (physical, verbal/nonverbal cueing, setup/clean-up)? No. FOOTWEAR - STEP 2: Does the patient need only setup/clean-up assistance from one helper? No. FOOTWEAR - STEP 3: Does the patient need only verbal/nonverbal cueing or touching/steadying/contact guard assistance fro m one helper? No. FOOTWEAR - STEP 4: Does the patient need physical assistance - for example lifting or trunk support from one helper - wi th the helper providing less than half of the effort? No. FOOTWEAR - STEP 5: Does the patient need physical assistance - for example lifting or trunk support from one helper - wi th the helper providing more than half of the effort? Yes. 1. [id number] ADMISSION PERFORMANCE: Substantial/maximal assistance CODE: 02 ROLL LEFT AND RIGHT: ROLL LEFT AND RIGHT - STEP 1: Does the patient complete the activity by him/herself with no assistance (physical, verbal/nonverbal cueing, setup/clean-up)? No. ROLL LEFT AND RIGHT - STEP 2: Does the patient need only setup/clean-up assistance from one helper? No. ROLL LEFT AND RIGHT - STEP 3: Does the patient need only verbal/nonverbal cueing or touching/steadying/contact guard assistance fro m one helper? Yes. 1. [id number] ADMISSION PERFORMANCE: Supervision or touching assistance CODE: 04 SIT TO LYING: SIT TO LYING - STEP 1: Does the patient complete the activity by him/herself with no assistance (physical, verbal/nonverbal cueing, setup/clean-up)? No. SIT TO LYING - STEP 2: Does the patient need only setup/clean-up assistance from one helper? Yes. 1. [id number] ADMISSION PERFORMANCE: Setup or clean-up assistance CODE: 05 LYING TO SITTING: LYING TO SITTING ON SIDE OF BED - STEP 1: Does the patient complete the activity by him/herself with no assistance (physical, verbal/nonverbal cueing, setup/clean-up)? No. LYING TO SITTING ON SIDE OF BED - STEP 2: Does the patient need only setup/clean-up assistance from one helper? No. LYING TO SITTING ON SIDE OF BED - STEP 3: Does the patient need only verbal/nonverbal cueing or touching/steadying/contact guard assistance fro m one helper? Yes. 1. [id number] ADMISSION PERFORMANCE: Supervision or touching assistance CODE: 04 SIT TO STAND: SIT TO STAND - STEP 1: Does the patient complete the activity by him/herself with no assistance (physical, verbal/nonverbal cueing, setup/clean-up)? No. SIT TO STAND - STEP 2: Does the patient need only setup/clean-up assistance from one helper? No. SIT TO STAND - STEP 3: Does the patient need only verbal/nonverbal cueing or touching/steadying/contact guard assistance fro m one helper? Yes. 1. [id number] ADMISSION PERFORMANCE: Supervision or touching assistance CODE: 04 TRANSFERS: BED, CHAIR: CHAIR/[id number] TRANSFER - STEP 1: Does the patient complete the activity by him/herself with no assistance (physical, verbal/nonverbal cueing, setup/clean-up)? No. CHAIR/[id number] TRANSFER - STEP 2: Does the patient need only setup/clean-up assistance from one helper? No. CHAIR/[id number] TRANSFER - STEP 3: Does the patient need only verbal/nonverbal cueing or touching/steadying/contact guard assistance fro m one helper? Yes. 1. [id number] ADMISSION PERFORMANCE: Supervision or touching assistance CODE: 04 TRANSFER TOILET: TOILET TRANSFER - STEP 1: Does the patient complete the activity by him/herself with no assistance (physical, verbal/nonverbal cueing, setup/clean-up)? No. TOILET TRANSFER - STEP 2: Does the patient need only setup/clean-up assistance from one helper? No. TOILET TRANSFER - STEP 3: Does the patient need only verbal/nonverbal cueing or touching/steadying/contact guard assistance fro m one helper? Yes. 1. [id number] ADMISSION PERFORMANCE: Supervision or touching assistance CODE: 04 TRANSFERS: CAR: Not assessed/no information CODE: - WALK 10 FEET: Not assessed/no information CODE: - 1 STEP (CURB): Not assessed/no information CODE: - PICKING UP OBJECT: Not assessed/no information CODE: - DOES THE PATIENT USE A WHEELCHAIR/SCOOTER? Q1. DOES THE PATIENT USE A WHEELCHAIR/SCOOTER?: Yes CODE: 1 WHEEL 50 FEET WITH TWO TURNS: WHEEL 50 FEET WITH TWO TURNS - STEP 1: Does the patient complete the activity by him/herself with no assistance (physical, verbal/nonverbal cueing, setup/clean-up)? No. WHEEL 50 FEET WITH TWO TURNS - STEP 2: Does the patient need only setup/clean-up assistance from one helper? No. WHEEL 50 FEET WITH TWO TURNS - STEP 3: Does the patient need only verbal/nonverbal cueing or touching/steadying/contact guard assistance fro m one helper? Yes. 1. [id number] ADMISSION PERFORMANCE: Supervision or touching assistance CODE: 04 INDICATE THE TYPE OF WHEELCHAIR/SCOOTER USED: RR1. INDICATE THE TYPE OF WHEELCHAIR/SCOOTER USED.: Manual CODE: 1 WHEEL 150 FEET: 1. [id number] ADMISSION PERFORMANCE: Supervision or touching assistance CODE: 04 INDICATE THE TYPE OF WHEELCHAIR/SCOOTER USED: SS1. INDICATE THE TYPE OF WHEELCHAIR/SCOOTER USED.: Manual CODE: 1 BLADDER AND BOWEL: H350. BLADDER CONTINENCE (3-DAY ASSESSMENT PERIOD): Always continent (no documented incontinence) CODE: 0 H400. BOWEL CONTINENCE (3-DAY ASSESSMENT PERIOD): Always continent CODE: 0 SIGNATURE PANEL: The following modified sections: 1. [id number] Admission Performance, 1. [id number] Admission Performance, 1. [id number] Admission Performance, 1. [id number] Admission Performance, 1. [id number] Admission Performance, 1. [id number] Admission Performance, 1. [id number] Admission Performance, 1. [id number] Admission Performance , 1. [id number] Admission Performance, 1. [id number] Admission Performance, 1. [id number] Admission Performanc e, 1. [id number] Admission Performance, Q1. Does the patient use a wheelchair/scooter?, 1. [id number] Admis kennedy Performance, RR1. Indicate the type of wheelchair/scooter used., 1. [id number] Admission Performanc e, Code, SS1. Indicate the type of wheelchair/scooter used., H350. Bladder Continence (3-day assessme nt period), H400. Bowel Continence (3-day assessment period) were [electronically] signed by Alberto ColbertNAlexandria on TueMar 26 2020 11:45:05 GMT-0500 (Central Daylight Time)
--- NOTE | 2020-03-26 17:55 | R.PN ---
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 Pt denied any Shortness of Breath. Prealbumin improved to 20.4 from 7.8. Continue promod. Bed mobility done with moderate assistance. Pe rformed [id number] exercises in the parallel bars with moderate assistance. Ambulated 250' with standby assistance using a left platform walker. Wheelchair mobilized 150' with i ndependence. WBC 4.5, Hgb 11.2. She will be discharged home in the AM with continued therapy via home health. VITAL SIGNS Temperature: 97.4 F SBP/DBP: 156/62 Pulse: 68 Resp: 16 MEDICATION ALLERGIES: No Known Drug Allergies (NKDA) ENVIRONMENTAL ALLERGIES: - Substance Allergies None Known - Other Allergies PENICILLIN SULFA ( ANTIBIOTICS) CORTICOSTEROIDS ( GLUCOCORTICOIDS) NURSING: - Shower allowing shower - Bladder care per protocol - Skin care per protocol PRECAUTIONS: - Weight Bearing Precaution WBAT left LE ACTIVITIES OOB only with supervision THERAPIES: - Occupational Therapy Cognitive Retraining. Visual Perceptual Training. - Dietary and Nutrition Adequate Nutrition. Nutritional Education. Nutritional Supplements. - Speech Therapy Cognitive Training. Expressive Language Skills. Memory Strategies. Receptive Language Skills. Speech Intelligibility Training. PHYSICAL EXAM - Gen Alert and awake Lying in bed No apparent distress Oriented to: person, time, and place - Skin No skin breakdown. No abnormalities - Eyes No abnormalities - ENMT No abnormalities - Neck No abnormalities - CVS RRR - Chest No abnormalities - Resp Clear to auscultation - Abd Soft - GI Non distended Deferred - No abnormalities - Ext No significant edema - MSK 4+/5 weakness in left upper and lower extremity - Neuro 4/5 strength left upper and lower extremities. - Psych No abnormalities ASSESSMENT: Currently, she has deficits of Locomotion, Balance, Social Cognition, Transfers Control, Sphincter Co ntrol, Self-Care, and Communication.On 02/24/2020 Pt. presented to [facility] with sudden onset of left-side weakness.On 02/24/2020 she was admitted to [facility] with diagnosis Right CVA.He r impairment category is Stroke 01 - Left Body (Right Brain) (01.1).Pt. is now referred to [facility] for acute in-patient rehabilitation in order to maximize patient's functiona l independence in activities of daily living, strength, ROM, and mobility.Pre-morbidly, Pt. was indep endent/mod-I in Locomotion, Safety Awareness, Self-Care, Communication, and Transfers Control; and sh e had good Balance, Endurance, and Sphincter Control.Pt. is a 74 yo Right-handed female of unknown ra ce.- Rehab Goal Patient has realistic goal of being discharged at assistance level 6-Andrew to reside at Home with Fam thomas/Relatives. MDM/PLAN: - Physical Therapy Achieving independence - to improve, our physical therapists will perform initial evaluation of pt's status upon admission and devise an individualized program for Community Reintegration Activities Edema - to improve, our physical therapists will perform initial evaluation of pt's status upon admi ssion and devise an individualized program for Elevation Training, and Lymphedema Therapy Gait dysfunction - to improve, our physical therapists will perform initial evaluation of pt's statu s upon admission and devise an individualized program for Gait Training, and Wheel Chair mobility Inability to transfer - to improve, our physical therapists will perform initial evaluation of pt's status upon admission and devise an individualized program for Bed mobility Need for home safety evaluation - to improve, our physical therapists will perform initial evaluatio n of pt's status upon admission and devise an individualized program for Home Evaluation Need in caregiver upon discharge - to improve, our physical therapists will perform initial evaluati on of pt's status upon admission and devise an individualized program for Caregiver Training New precaution - to improve, our physical therapists will perform initial evaluation of pt's status upon admission and devise an individualized program for Patient precaution education Poor balance - to improve, our physical therapists will perform initial evaluation of pt's status up on admission and devise an individualized program for Balance Training Weakness - to improve, our physical therapists will perform initial evaluation of pt's status upon a dmission and devise an individualized program for Aquatic Therapy, Neuromuscular Reeducation, and Str engthening - Occupational Therapy ADL deficits - to improve, our occupation therapists will perform initial evaluation of pt's status upon admission and devise an individualized program for Bathing, Bed mobility, Community Reintegratio n, Cooking, Dressing, Eating, Fine Motor Skills, Grooming, Homemaking, Kitchen Mobility, Laundry, Pat ient Education, Safety Awareness, Splinting - Positioning, Transfers(Toilet, Tub, Shower), and Wheel Chair Management Cognitive deficits - to improve, our occupation therapists will perform initial evaluation of pt's s tatus upon admission and devise an individualized program for Cognition - orientation Need for rn managed care - to improve, our occupation therapists will perform initial evaluation of pt's status upon admission and devise an individualized program for Caregiver Training Weakness - to improve, our occupation therapists will perform initial evaluation of pt's status upon admission and devise an individualized program for Aquatic Therapy, Balance, Endurance, UE ROM, and UE strengthening - Other See attached MAR (Medication Administration Record) - Diet Type Continue Regular - Diet - Liquid Texture Continue Regular - Tube Feed Continue N/A - Bladder care per protocol - Weight Bearing Precaution WBAT left LE - Skin care per protocol - Diet - Solid Texture Continue Regular - Shower allowing shower for Dementia, TBI, Stroke, or others FUNCTIONAL STATUS: UPDATED AT WEEKLY TEAM CONFERENCE - Bladder Same accident frequency: 7-Ind - No accidents in the past 7 days - Bowel Same accident frequency: 7-Ind - No accidents in the past 7 days - Walking Same score based on distance walked: 0(N/A) - Wheelchair Same score based on distance traveled: 0(N/A) FUNCTIONAL STATUS: - Self-Care A. Eating Andrew B. Grooming Marianela C. Bathing modA D. Dressing - Upper modA E. Dressing - Lower maxA F. Toileting maxA - Sphincter Control G. Bladder control Marianela H. Bowel control Marianela - Transfers Control I. Bed/Chair/Wheelchair modA J. Toilet modA K. Tub/Shower modA - Locomotion L. Walk/Wheelchair (B) modA M. Stairs ADNO - Communication N. Comprehension (B) Marianela O. Expression (B) sup - Social Cognition P. Social Interaction sup Q. Problem Solving sup R. Memory sup - Endurance Poor - Balance Poor - Safety Awareness Poor QI SCORES: - Self-Care A. Eating 05-Setup or clean-up assistance B. Oral hygiene 03-Partial/moderate assistance C. Toileting hygiene 88-Not attempted due to medical condition or safety concerns E. Shower/bathe self 02-Substantial/maximal assistance F. Upper body dressing 02-Substantial/maximal assistance G. Lower body dressing 02-Substantial/maximal assistance H. Putting on/taking off footwear 02-Substantial/maximal assistance - Mobility M. 1 step (curb) 88-Not attempted due to medical condition or safety concerns N. 4 steps 88-Not attempted due to medical condition or safety concerns O. 12 steps 88-Not attempted due to medical condition or safety concerns P. Picking up object 88-Not attempted due to medical condition or safety concerns R. Wheel 50 feet with two turns 88-Not attempted due to medical condition or safety concerns A. Roll left and right 02-Substantial/maximal assistance B. Sit to lying 03-Partial/moderate assistance C. Lying to sitting on side of bed 03-Partial/moderate assistance D. Sit to stand 02-Substantial/maximal assistance E. Chair/[id number] transfer 02-Substantial/maximal assistance F. Toilet transfer 88-Not attempted due to medical condition or safety concerns G. Car transfer 88-Not attempted due to medical condition or safety concerns I. Walk 10 feet 88-Not attempted due to medical condition or safety concerns J. Walk 50 feet with two turns 88-Not attempted due to medical condition or safety concerns K. Walk 150 feet 88-Not attempted due to medical condition or safety concerns L. Walking 10 feet on uneven surfaces 88-Not attempted due to medical condition or safety concerns S. Wheel 150 feet 88-Not attempted due to medical condition or safety concerns - Bladder and Bowel Bladder continence Bowel continence - Endurance Fair - Balance Poor - Safety Awareness Fair [facility] Endurance, Balance, Mobility, Safety Awareness, and Self-Care SIGNATURE PANEL: (CDT)
== END 2020-03-26 11:20 | disposition home health service (06) | DRG 57 ==
LOC: 5TH 03-03 19:05
PROVIDERS: ADMIT Psychiatry & Neurology Neurology with Special Qualifications in Child Neurology; ATTEND Psychiatry & Neurology Neurology with Special Qualifications in Child Neurology
DX: I69.354 Hemiplegia and hemiparesis following cerebral infarction affecting left non-dominant side (principal); I10 Essential (primary) hypertension; I25.10 Atherosclerotic heart disease of native coronary artery without angina pectoris; I25.2 Old myocardial infarction; Z88.1 Allergy status to other antibiotic agents; Z88.0 Allergy status to penicillin; Z88.8 Allergy status to other drugs, medicaments and biological substances; Z90.49 Acquired absence of other specified parts of digestive tract; Z20.828 Contact with and (suspected) exposure to other viral communicable diseases
CPT/HCPCS: 36415; 80048; 81001; 81003; 82040; 83735; 84134; 85025; 87077; 87086; 87088; 87186; 92523; 92610; 97110; 97112; 97116; 97161; 97530; 97542; U0002; U0003

== ENCOUNTER 2022-08-11 05:20 | Inpatient (IN) | payer OTHER ==
--- OUTSIDE RECORDS SUMMARY | 2022-08-11 05:28 | XMS REPORT | Continuity of Care Document ---
:1945 Author Organization [facility] t Address [address] [place] [address] Care Team Providers Name Role Phone Vimal Lancaster MD Primary Care Physician [phone] BRADY HEAD Attending Clinician Unavailable Hakan BRIGGS, Sendtodd K.H. Attending Clinician DESTINY LOUIS Attending Clinician Unavailable WALTER BIRD Attending Clinician Unavailable GILMER MCCLENDON K.H. Attending Clinician Unavailable VIMAL LANCASTER Attending Clinician Unavailable Doctor Unassigned, [place] Attending Clinician Unavailable Vimal Lancaster MD Attending Clinician Vaccine, Ang Db Cbc Fam Attending Clinician Unavailable Lab, Ang - Db Attending Clinician Unavailable Brady Head MD Attending Clinician Walter Bird MD Attending Clinician LEWIS MARTINEZ Attending Clinician Unavailable Nurse, Adc Pob Immunization Attending Clinician Unavailable Lewis Martinez DO Attending Clinician Page Arevalo MD Attending Clinician Adeline Cervantes PA-C Attending Clinician ADELINE CERVANTES Attending Clinician Unavailable April Chacon RN Attending Clinician Unavailable Tariq Payne MD Attending Clinician Noelle Yee MD Attending Clinician [phone] NOELLE YEE Attending Clinician Unavailable Renetta TREND INVESTIGATOR, Arabella Rodriguez Attending Clinician ARABELLA JACKSON Attending Clinician Unavailable OMA LAUGHLIN Attending Clinician Unavailable Truman DELICATESSEN STORE MANAGER, Oma Attending Clinician Provider, [facility] Attending Clinician Unavailable PAGE AREVALO Attending Clinician Unavailable FEDE PALOMINO Attending Clinician Unavailable Candelario BRIGGS, Fede Brown Attending Clinician Leonila DELICATESSEN STORE MANAGER, Laura Attending Clinician Jian BRIGGS, Ayad Attending Clinician Karina, Remote Device Check At Home - Attending Clinician Unava AYAD Fowler Attending Clinician Unavailable Ochoa BRIGGS, John Cr Attending Clinician Manuela TRUJILLO, Kim Attending Clinician Unavailable Vicky Perez MD Attending Clinician JERE PATRICIA Attending Clinician Unavailable Pob, Adc Lab Main Attending Clinician Unavailable Pacemaker/Icd, Adc Attending Clinician Unavailable Theo BRIGGS, Sloane Attending Clinician Rizwan BUSINESS ADMINISTRATION TEACHER, Jeannette L Attending Clinician Vimal Mccall MD Attending Clinician Torsten Maki Attending Clinician TORSTEN HOLGUIN Attending Clinician Unavailable Kavon Prather MD Attending Clinician Pina Ordonez MD Attending Clinician PINA ORDONEZ Attending Clinician Unavailable 2, Adc Lab Attending Clinician Unavailable Garland Jones MD Attending Clinician BRADY HEAD Admitting Clinician Unavailable DESTINY LOUIS Admitting Clinician Unavailable Brady Head MD Admitting Clinician ADELINE CERVANTES Admitting Clinician Unavailable Michael BRIGGS, Noelle Smith Admitting Clinician [phone] NOELLE YEE Admitting Clinician Unavailable AYAD VILLAR Admitting Clinician Unavailable GAYLE, UMAR Admitting Clinician Unavailable Payers Payer Name Policy Type Policy Number Effective Date Expiration Date S mechelle VASQUEZ/GAEL [id number] 2021 MEDICARE ADVANTAGE 00:00:00 A[employer] MEDICARE HMO [id number] POS [place] PL[place] [id number] 2022 CLASSIC NO PREMIUM 00:00:00 HMO Problems Condition Condition Condition Status Onset Resolution Last Treating Co mments Source Name Details Category Date Date Treatment Clinician Date S/P S/P Disease Active Univers transmetat transmetat 4-05 it y of arsal arsal 00:00: [place] amputation amputation 00 Me dical of foot, of foot, Branch left left Bony Bony Disease Active Overview: Univer s prominence prominence 10-02 Formattin ity of 00:00: g of this 00 note Medical might be Branch different from the original. 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 right 00:00: [place] side side 00 Medical Branch Facial Facial Disease Active Univers droop droop 4-07 ity of 00:00: [place] 00 Medical Branch Maculopapu Maculopapu Disease Active U nivers lar rash, lar rash, 3-02 ity of generalize generalize 00:00: [place] 00 [place] Branch Allergic Allergic Disease Active Unive rs dermatitis dermatitis 3-02 it y of 00:00: [place] 00 Medical Branch History of History of Disease Active U nivers DE DE 1-20 ity of (myocardia (myocardia 00:[place] Medical infarction infarction Br anch ) ) Asymptomat Asymptomat Disease Active 2019-07 U nivers ic ic 2-04 ity of hypertensi hypertensi 00:[place] ve urgency ve urgency 00 Me dical Branch Vision Vision Disease Active 2019-07 Univers changes changes 2-04 ity of 00:00: [place] 00 Medical Branch Need for Need for Disease Active 2019-07 Unive rs influenza influenza 0-08 ity of vaccinatio vaccinatio 00:[place] Branch Cerebrovas Cerebrovas Disease Active 2019-07 U nivers cular cular 0-08 ity of accident accident 00:00: [place] (CVA), (CVA), 00 Medical unspecifie unspecifie Br anch d d mechanism [facility] Disease Active 2019-07 Unive rs discharge discharge 0-08 ity of follow-up [place]-up 00:[place] CAD CAD Disease Active [facility] ([facility]onary (coronary 8 [facility] artery artery 00:00: Medical disease) disease) 00 Center History of History of Disease Active [facility] DE DE 02-26 [facility] (myocardia (myocardia 00:00: Me dical l l 00 Center infarction infarction ) ) History of History of Disease Active [facility] coronary coronary 02-26 [facility] artery artery 00:00: Medical stent stent 00 Center placement placement Essential Essential Disease Active [facility] hypertensi hypertensi - [facility] kes on on 00:00: Medical 00 Center Thoracic Thoracic Disease Active Overview: [facility] aortic aortic 02-26 [facility] atheroscle atheroscle 00:00: g of this Medical rosis rosis 00 note is Center different from the original. AVIS 02/26/20: with severe atheroscl erosis of ascending and descendin g thoracic aortaGrad e 3 plaque (atheroma < 5mm) in the ascending aorta and aortic arch.Grad e 4 [place] us plaque (atheroma > 5mm) diffusely throughou t the descendin g thoracic aorta . CVA CVA Disease Active Overview: [facility] (cerebral (cerebral 02-26 Formatt[facility] L [facility] vascular vascular 00:00: g of this Med ical accident) accident) 00 note Cent er might be different from the original. MRI 02/25/20: Right parieto-o ccipital stroke Left Left Disease Active Overview: [facility] hemiparesi hemiparesi - [facility] s s 00:00: g of this Medical 00 note Center might be different from the original. 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 0-22 ity of 00:00: [place] 00 Medical Branch Vestibular Vestibular Disease Active 2019 U nivers active active 0-22 ity of Meniere's Meniere's 00:00[place] disease of disease of 00 Me dical right ear right ear Bran ch Gastroesop Gastroesop Disease Active 2018-07 U yoselin hageal hageal 0-22 ity of reflux reflux 00:00: [place] disease disease 00 Medical without without Branch esophagiti esophagiti s s Chronic Chronic Disease Active 2018-07 Univers pain of pain of 0-22 ity of multiple multiple 00:00: [place] joints joints 00 Medical Branch Medicare Medicare Disease Active 2018-07 Unive rs annual annual 0-22 ity of wellness wellness 00:00: [place] visit, visit, 00 Medical subsequent subsequent Br anch Senile Senile Disease Active 2018-07 Univers osteoporos osteoporos 0-22 it y of is is 00:00: [place] 00 Medical Branch Need for Need for Disease Active 2018-07 Unive rs Tdap Tdap 0-22 ity of vaccinatio vaccinatio 00:00: [place] n n 00 Medical Branch Dyslipidem Dyslipidem Disease Active U yoselin ia ia 5-23 ity of 00:00: [place] Medical Branch Essential Essential Disease Active Uni vers hypertensi hypertensi 1-11 it y of on on 00:00: [place] Medical Branch Coronary Coronary Disease Active Unive rs artery artery 1-11 ity of disease disease 00:00: [place] Medical Branch Peripheral Peripheral Disease Active U yoselin vascular vascular 1-11 ity of disease disease 00:00: [place] Medical Branch Glaucoma Glaucoma Disease Active Unive rs of both of both 1-11 ity of eyes eyes 00:00: [place] 00 Medical Branch Prediabete Prediabete Disease Active [facility] Allergies, Adverse Reactions, Alerts Allergy Allergy Status Severity Reaction(s) Onset Inactive Treating Comm ents Source Name Type Date Date Clinician Amoxicil Drug Active Rash Heat rash Unive rs barry Allergy 01-07 when ity of 00:00: taken [place] 00 Medical Branch AMOXICIL DRUG Active Rash Univers BARRY INGREDI 01-07 ity of 00:00: [place] 00 Medical Branch Evolocum Propensi Active Rash Univer s ab ty to 1-13 ity of adverse 00:00: [place] reaction 00 Medical s Branch EVOLOCUM DRUG Active Rash Univers AB INGREDI 1- ity of 00:00: [place] 00 Medical Branch Aspirin Propensi Active Nausea Univers ty to and/or 10-07 ity of adverse Vomiting 00:00: [place] reaction 00 Medical s Branch ASPIRIN DRUG Active N/V Univers INGREDI 4-06 ity of 00:00: [place] 00 Medical Branch PENICILL Allergy Active High Rash [facility] INS 8-23 [facility] 00:00: Medical 00 [place] SULFA Allergy Active High Rash [facility] (SULFONA 8-23 [facility] MIDE 00:00: Medical ANTIBIOT 00 Center ICS) CORTICOS Allergy Active Other [facility] TEROIDS 8-23 [facility] (GLUCOCO 00:00: Medical RTICOIDS 00 Center ) Corticos Propensi Active Other (See "it [facility] teroids ty to Comments) 8-23 caused me Alex es (Glucoco adverse 00:00: to have Medica l rticoids reaction 00 glaucoma" Fady ter ) s Penicill Drug Active Rash [facility] ins Allergy 8-23 [facility] 00:00: Medical 00 Center Sulfa Drug Active Rash 2019- [facility] (Sulfona Allergy 8-23 [facility] mide 00:00: Medical Antibiot 00 Center ics) Brimonid Propensi Active Other - See 2019-0 Papillar y Univers ine ty to comments 1-13 reaction, ity o f adverse 00:00: conjuncti [place] reaction 00 zack Medical s irritatio Branch n BRIMONID DRUG Active Other-Cmnt 2019-0 Univ ers INE INGREDI 1-13 ity of 00:00: [place] 00 Medical Branch Ezetimib Propensi Active Unknown - 2017-07 Uni vers e ty to See comments 0-16 ity of adverse 00:00: [place] reaction 00 Medical s Branch EZETIMIB DRUG Active Unknown-Cmnt 2017-07 Un cameron E INGREDI 0-16 ity of 00:00: [place] 00 Medical Branch Statins- Propensi Active Rash 2014-07 Univer s Hmg-Coa ty to 0-30 ity of Reductas adverse 00:00: [place] e reaction 00 Medical Inhibito s Branch rs Statins- Propensi Active Rash 2014-07 Univer s Hmg-Coa ty to 0-30 ity of Reductas adverse 00:00: [place] e reaction 00 Medical Inhibito s Branch rs STATINS- Drug Active Rash 2014-07 Univers HMG-COA Class 0-30 ity of REDUCTAS 00:00: [place] E 00 Medical INHIBITO Branch RS Rosuvast Propensi Active Anaphylaxis U nivers atin ty to 7-24 ity of Calcium adverse 00:00: [place] reaction 00 Medical s to Branch drug ROSUVAST DRUG Active Anaphylaxis Uni vers ATIN INGREDI 7-24 ity of CALCIUM 00:00: [place] 00 Medical Branch Neuromus Propensi Active Unknown - Gives pt U nivers cular ty to See comments 1-10 glaucoma, i ty of Blockers adverse 00:00: all [place] , reaction 00 steroid Medical Steroida s type Branch l medicatio ns Penicill Propensi Active Swelling Univ ers ins ty to 1-10 ity of adverse 00:00: [place] reaction 00 Medical s to Branch drug Sulfa Propensi Active Unknown - Had Unive rs (Sulfona ty to See comments 1-10 reaction ity of mide adverse 00:00: as a [place] Antibiot reaction 00 child Medica l ics) s Branch Neuromus Propensi Active Unknown - Gives pt U nivers cular ty to See comments 1-10 glaucoma, i ty of Blockers adverse 00:00: all [place] , reaction 00 steroid Medical Steroida s type Branch l medicatio ns Sulfa Propensi Active Unknown - Had Unive rs (Sulfona ty to See comments 1-10 reaction ity of mide adverse 00:00: as a [place] Antibiot reaction 00 child Medica l ics) s Branch Penicill Propensi Active Swelling Univ ers ins ty to 1-10 ity of adverse 00:00: [place] reaction 00 Medical s to Branch drug NEUROMUS Drug Active Unknown-Cmnt Un cameron CULAR Class 1-10 ity of BLOCKERS 00:00: [place] , 00 Medical STEROIDA Branch L PENICILL Drug Active Swelling Univer s INS Class 1-10 ity of 00:00: [place] 00 Medical Branch SULFA Drug Active Unknown-Cmnt Univ ers (SULFONA Class 1-10 ity of MIDE 00:00: [place] ANTIBIOT 00 Medical ICS) Branch Social History Social Habit Start Date Stop Date Quantity Comments Source History SDOH [facility] Alcohol Binge Medical Fady ter History SDOH [facility] Alcohol Comment Medical C enter History SDOH [facility] Alcohol Std Medical Cente r Drinks Exposure to 2022-05-16 2022-05-26 Not sure University of SARS-CoV-2 00:00:00 09:46:00 [facility] (event) Branch Alcohol intake 2020-02-27 2020-02-[address] [facility] 00:00:00 00:00:00 non-drinker of Medical Ce nter alcohol (finding) Tobacco use and 2020-02-24 2020-02-[address] [facility] kes exposure 00:00:00 00:00:00 Medical Center History SDOH 2020-02-24 2020-02-[address] [facility] Alcohol Frequency 00:00:00 00:00:00 Medical Center History of 2011-07-14 Cigarette Smoker Universi ty of tobacco use 00:00:00 [facility] Sex Assigned At [address] [facility] kes 00:00:00 00:00:00 [facility] Center Smoking Status Start Date Stop Date Source Ex-smoker 2022-05-26 00:00:00 2022-05-26 00:00:00 Universi ty of [facility] Medications Ordered Filled Start Stop Current Ordering Indication Dosage Frequency Signature Comments Components Source Medication Medication Date Date Medication? Clinician (SIG) Name Name HYDROCHLORO 2021-07 Yes 12.5mg Take 12.5 Univers THIAZIDE 1-23 mg by ity of ORAL 10:02: mouth. [address] HYDROCHLORO 2021-07 Yes 12.5mg Take 12.5 Univers THIAZIDE 1-23 mg by ity of ORAL 10:02: mouth. [address] HYDROCHLORO 2021-07 Yes 12.5mg Take 12.5 Univers THIAZIDE 1-23 mg by ity of ORAL 10:02: mouth. [address] Branch HYDROCHLORO 2021-07 Yes 12.5mg Take 12.5 Univers THIAZIDE 1-23 mg by ity of ORAL 10:02: mouth. [address] HYDROCHLORO 2021-07 Yes 12.5mg Take 12.5 Univers THIAZIDE 1-23 mg by ity of ORAL 10:02: mouth. [address] HYDROCHLORO 2021-07 Yes 12.5mg Take 12.5 Univers THIAZIDE 1-23 mg by ity of ORAL 10:02: mouth. [address] Branch HYDROCHLORO 2021-07 Yes 12.5mg Take 12.5 Univers THIAZIDE 1-23 mg by ity of ORAL 10:02: mouth. [address] aspirin 81 2021-07 Yes [id number] 81mg Take 81 mg Univers mg tablet 1-23 by mouth ity of 09:54: daily. [address] aspirin 81 2021-07 Yes [id number] 81mg Take 81 mg Univers mg tablet 1-23 by mouth ity of 09:54: daily. [address] aspirin 81 2021-07 Yes [id number] 81mg Take 81 mg Univers mg tablet 1-23 by mouth ity of 09:54: daily. [address] aspirin 81 2021-07 Yes [id number] 81mg Take 81 mg Univers mg tablet 1-23 by mouth ity of 09:54: daily. [address] aspirin 81 2021-07 Yes [id number] 81mg Take 81 mg Univers mg tablet 1-23 by mouth ity of 09:54: daily. [address] aspirin 81 2021-07 Yes [id number] 81mg Take 81 mg Univers mg tablet 1-23 by mouth ity of 09:54: daily. [address] aspirin 81 2021-07 Yes [id number] 81mg Take 81 mg Univers mg tablet 1-23 by mouth ity of 09:54: daily. [address] Branch PRALUENT 2021-07 Yes [id number] 75mg INJECT 1 Univers PEN 75 0-13 ML UNDER ity of mg/mL PnIj 00:00: THE SKIN Ziyad as 00 EVERY 2 Medical (TWO) Branch WEEKS. PRALUENT 2021-07 Yes [id number] 75mg INJECT 1 Univers PEN 75 0-13 ML UNDER ity of mg/mL PnIj 00:00: THE SKIN [place] as 00 EVERY 2 Medical (TWO) Branch WEEKS. PRALUENT 2021-07 Yes [id number] 75mg INJECT 1 Univers PEN 75 0-13 ML UNDER ity of mg/mL PnIj 00:00: THE SKIN [place] as 00 EVERY 2 Medical (TWO) Branch WEEKS. PRALUENT 2021-07 Yes [id number] 75mg INJECT 1 Univers PEN 75 0-13 ML UNDER ity of mg/mL PnIj 00:00: THE SKIN Z[place] as 00 EVERY 2 Medical (TWO) Branch WEEKS. PRALUENT 2021-07 Yes [id number] 75mg INJECT 1 Univers PEN 75 0-13 ML UNDER ity of mg/mL PnIj 00:00: THE SKIN Z[place] as 00 EVERY 2 Medical (TWO) Branch WEEKS. PRALUENT 2021-07 Yes [id number] 75mg INJECT 1 Univers PEN 75 0-13 ML UNDER ity of mg/mL PnIj 00:00: THE SKIN [place] as 00 EVERY 2 Medical (TWO) Branch WEEKS. PRALUENT 2021-07 Yes [id number] 75mg INJECT 1 Univers PEN 75 0-13 ML UNDER ity of mg/mL PnIj 00:00: THE SKIN [place] 00 EVERY 2 Medical (TWO) Branch WEEKS. PRALUENT 2021-07 Yes [id number] 75mg INJECT 1 Univers PEN 75 0-13 ML UNDER ity of mg/mL PnIj 00:00: THE SKIN [place] 00 EVERY 2 Medical (TWO) Branch WEEKS. PRALUENT 2021-07 Yes [id number] 75mg INJECT 1 Univers PEN 75 0-13 ML UNDER ity of mg/mL PnIj 00:00: THE SKIN [place] 00 EVERY 2 Medical (TWO) Branch WEEKS. PRALUENT 2021-07 Yes [id number] 75mg INJECT 1 Univers PEN 75 0-13 ML UNDER ity of mg/mL PnIj 00:00: THE SKIN [place] 00 EVERY 2 Medical (TWO) Branch WEEKS. HYDROCHLORO Yes 12.5mg Take 12.5 Univers THIAZIDE 9-26 mg by ity of ORAL 14:13: mouth. [place] [address] Medical Branch HYDROCHLORO Yes 12.5mg Take 12.5 Univers THIAZIDE 9-26 mg by ity of ORAL 14:13: mouth. [address] HYDROCHLORO 0 Yes 12.5mg Take 12.5 Univers THIAZIDE 9-26 mg by ity of ORAL 14:13: mouth. [address] HYDROCHLORO 0 Yes 12.5mg Take 12.5 Univers THIAZIDE 9-26 mg by ity of ORAL 14:13: mouth. [address] HYDROCHLORO 0 Yes 12.5mg Take 12.5 Univers THIAZIDE 9-26 mg by ity of ORAL 14:13: mouth. [address] HYDROCHLORO 0 Yes 12.5mg Take 12.5 Univers THIAZIDE 9-26 mg by ity of ORAL 14:13: mouth. [address] aspirin 81 0 Yes [id number] 81mg Take 81 mg Univers mg tablet 9-26 by mouth ity of 14:13: daily. [address] aspirin 81 0 Yes [id number] 81mg Take 81 mg Univers mg tablet 9-26 by mouth ity of 14:13: daily. [address] aspirin 81 0 Yes [id number] 81mg Take 81 mg Univers mg tablet 9-26 by mouth ity of 14:13: daily. [address] aspirin 81 0 Yes [id number] 81mg Take 81 mg Univers mg tablet 9-26 by mouth ity of 14:13: daily. [address] aspirin 81 2021-0 Yes [id number] 81mg Take 81 mg Univers mg tablet 9-26 by mouth ity of 14:13: daily. [address] aspirin 81 2021-0 Yes [id number] 81mg Take 81 mg Univers mg tablet 9-26 by mouth ity of 14:13: daily. [address] aspirin 81 2021-0 Yes [id number] 81mg Take 81 mg Univers mg tablet 9-14 by mouth ity of 10:06: daily. [address] vitamin E 0 Yes 200U Take 200 Univ ers 200 unit 9-14 Units by ity of capsule 10:06: mouth [place] [address] daily. [facility] Branch HYDROCHLORO 0 Yes 12.5mg Take 12.5 Univers THIAZIDE 9-14 mg by ity of ORAL 10:06: mouth. [address] aspirin 81 0 Yes [id number] 81mg Take 81 mg Univers mg tablet 9-14 by mouth ity of 10:06: daily. Medical Branch vitamin E 2021-0 Yes 200U Take 200 Univ ers 200 unit 9-14 Units by ity of capsule 10:06: mouth [place] 55 daily. Medical Branch HYDROCHLORO 2021-0 Yes 12.5mg Take 12.5 Univers THIAZIDE 9-14 mg by ity of ORAL 10:06: mouth. Medical Branch aspirin 81 2021-0 Yes [id number] 81mg Take 81 mg Univers mg tablet 9-14 by mouth ity of 10:06: daily. Medical Branch vitamin E 2021-0 Yes 200U Take 200 Univ ers 200 unit 9-14 Units by ity of capsule 10:06: mouth [place] 55 daily. Medical Branch HYDROCHLORO 2021-0 Yes 12.5mg Take 12.5 Univers THIAZIDE 9-14 mg by ity of ORAL 10:06: mouth. Medical Branch vitamin E 2021-0 Yes 200U Take 200 Univ ers 200 unit 9-14 Units by ity of capsule 10:06: mouth [place] 55 daily. Medical Branch vitamin E 2021-0 Yes 200U Take 200 Univ ers 200 unit 9-14 Units by ity of capsule 10:06: mouth [place] 55 daily. Medical Branch vitamin E 2021-0 Yes 200U Take 200 Univ ers 200 unit 9-14 Units by ity of capsule 10:06: mouth [place] 55 daily. Medical Branch vitamin E 2021-0 Yes 200U Take 200 Univ ers 200 unit 9-14 Units by ity of capsule 10:06: mouth [place] 55 daily. Medical Branch vitamin E 2021-0 Yes 200U Take 200 Univ ers 200 unit 9-14 Units by ity of capsule 10:06: mouth [place] 55 daily. Medical Branch vitamin E 2021-0 Yes 200U Take 200 Univ ers 200 unit 9-14 Units by ity of capsule 10:06: mouth [place] 55 daily. Medical Branch vitamin E 2021-0 Yes 200U Take 200 Univ ers 200 unit 9-14 Units by ity of capsule 10:06: mouth [place] 55 daily. Medical Branch vitamin E 2021-0 Yes 200U Take 200 Univ ers 200 unit 9-14 Units by ity of capsule 10:06: mouth [place] 55 daily. Medical Branch vitamin E 2021-0 Yes 200U Take 200 Univ ers 200 unit 9-14 Units by ity of capsule 10:06: mouth [place] 55 daily. Medical Branch vitamin E 2-0 Yes 200U Take 200 Univ ers 200 unit 9-14 Units by ity of capsule 10:06: mouth [place] 55 daily. Medical Branch vitamin E 2-0 Yes 200U Take 200 Univ ers 200 unit 9-14 Units by ity of capsule 10:06: mouth [place] 55 daily. Medical Branch vitamin E 2-0 Yes 200U Take 200 Univ ers 200 unit 9-14 Units by ity of capsule 10:06: mouth [place] 55 daily. Medical Branch vitamin E 2-0 Yes 200U Take 200 Univ ers 200 unit 9-14 Units by ity of capsule 10:06: mouth [place] 55 daily. Medical Branch CLOPIDOGREL 2022-0 Yes [id number] TAKE 1 Univers 75 mg 7-19 TABLET BY ity of tablet 00:00: MOUTH [place] 00 EVERY DAY Medical Branch CLOPIDOGREL 2022-0 Yes [id number] TAKE 1 Univers 75 mg 7-19 TABLET BY ity of tablet 00:00: MOUTH [place] 00 EVERY DAY Medical Branch CLOPIDOGREL 2022-0 Yes [id number] TAKE 1 Univers 75 mg 7-19 TABLET BY ity of tablet 00:00: MOUTH [place] 00 EVERY DAY Medical Branch CLOPIDOGREL 2022-0 Yes [id number] TAKE 1 Univers 75 mg 7-19 TABLET BY ity of tablet 00:00: MOUTH [place] 00 EVERY DAY Medical Branch CLOPIDOGREL 2022-0 Yes [id number] TAKE 1 Univers 75 mg 7-19 TABLET BY ity of tablet 00:00: MOUTH [place] 00 EVERY DAY Medical Branch CLOPIDOGREL 2022-0 Yes [id number] TAKE 1 Univers 75 mg 7-19 TABLET BY ity of tablet 00:00: MOUTH [place] 00 EVERY DAY Medical Branch CLOPIDOGREL 2022-0 Yes [id number] TAKE 1 Univers 75 mg 7-19 TABLET BY ity of tablet 00:00: MOUTH [place] 00 EVERY DAY Medical Branch CLOPIDOGREL 2022-0 Yes [id number] TAKE 1 Univers 75 mg 7-19 TABLET BY ity of tablet 00:00: MOUTH [place] 00 EVERY DAY Medical Branch CLOPIDOGREL 2022-0 Yes [id number] TAKE 1 Univers 75 mg 7-19 TABLET BY ity of tablet 00:00: MOUTH [place] 00 EVERY DAY Medical Branch CLOPIDOGREL 2022-0 Yes [id number] TAKE 1 Univers 75 mg 7-19 TABLET BY ity of tablet 00:00: MOUTH [place] 00 EVERY DAY Medical Branch CLOPIDOGREL 2022-0 Yes [id number] TAKE 1 Univers 75 mg 7-19 TABLET BY ity of tablet 00:00: MOUTH [place] EVERY DAY Medical Branch CLOPIDOGREL 2022-0 Yes [id number] TAKE 1 Univers 75 mg 7-19 TABLET BY ity of tablet 00:00: MOUTH [place] EVERY DAY Medical Branch CLOPIDOGREL 2022-0 Yes [id number] TAKE 1 Univers 75 mg 7-19 TABLET BY ity of tablet 00:00: [facility] EVERY DAY Medical Branch CLOPIDOGREL 2022-0 Yes [id number] TAKE 1 Univers 75 mg 7-19 TABLET BY ity of tablet 00:00: MOUTH [place] EVERY DAY Medical Branch CLOPIDOGREL 2022-0 Yes [id number] TAKE 1 Univers 75 mg 7-19 TABLET BY ity of tablet 00:00: [facility] EVERY DAY Medical Branch CLOPIDOGREL 2022-0 Yes [id number] TAKE 1 Univers 75 mg 7-19 TABLET BY ity of tablet 00:00: [facility] EVERY DAY Medical Branch gabapentin 2022-0 Yes [id number] 300mg Take 1 Univers 300 mg 5-06 capsule by ity of capsule 00:00: mouth [place] ([facility]) Medical times Branch daily. gabapentin 2022-0 Yes [id number] 300mg Take 1 Univers 300 mg 5-06 capsule by ity of capsule 00:00: [facility] [place] ([facility]) Medical times Branch daily. gabapentin 2022-0 Yes [id number] 300mg Take 1 Univers 300 mg 5-06 capsule by ity of capsule 00:00: [address] ([facility]) Medical times Branch daily. gabapentin 2022-0 Yes [id number] 300mg Take 1 Univers 300 mg 5-06 capsule by ity of capsule 00:00: mouth [address] [place] [address] ([facility]) Medical times Branch daily. gabapentin 2022-0 Yes [id number] 300mg Take 1 Univers 300 mg 5-06 capsule by ity of capsule 00:00: mouth [address] [place] [address] ([facility]) Medical times Branch daily. gabapentin 2022-0 Yes [id number] 300mg Take 1 [facility] 300 mg 5-06 capsule by ity of capsule 00:00: mouth [place] ([facility]) Medical times Branch daily. gabapentin 2022-0 Yes [id number] 300mg Take 1 [facility] 300 mg 5-06 capsule by ity of capsule 00:00: mouth [address] [place] [address] (three) Medical times Branch daily. gabapentin 2022-0 Yes [id number] 300mg Take 1 [facility] 300 mg 5-06 capsule by ity of capsule 00:00: mouth (three) Medical times Branch daily. gabapentin 2022-0 Yes [id number] 300mg Take 1 [facility] 300 mg 5-06 capsule by ity of capsule 00:00: mouth (three) Medical times Branch daily. gabapentin 2022-0 Yes [id number] 300mg Take 1 [facility] 300 mg 5-06 capsule by ity of capsule 00:00: mouth (three) Medical times Branch daily. gabapentin 2022-0 Yes [id number] 300mg Take 1 [facility] 300 mg 5-06 capsule by ity of capsule 00:00: mouth (three) Medical times Branch daily. gabapentin 2022-0 Yes [id number] 300mg Take 1 [facility] 300 mg 5-06 capsule by ity of capsule 00:00: mouth (three) Medical times Branch daily. gabapentin 2022-0 Yes [id number] 300mg Take 1 [facility] 300 mg 5-06 capsule by ity of capsule 00:00: mouth (three) Medical times Branch daily. gabapentin 2022-0 Yes [id number] 300mg Take 1 [facility] 300 mg 5-06 capsule by ity of capsule 00:00: mouth (three) Medical times Branch daily. gabapentin 2022-0 Yes [id number] 300mg Take 1 [facility] 300 mg 5-06 capsule by ity of capsule 00:00: mouth (three) Medical times Branch daily. gabapentin 2022-0 Yes [id number] 300mg Take 1 [facility] 300 mg 5-06 capsule by ity of capsule 00:00: mouth (three) Medical times Branch daily. alirocumab 2022-0 Yes [id number] 75mg inject 1 [facility] (PRALUENT 4-07 mL under ity of PEN) 75 00:00: the skin [place] mg/mL PnIj 00 every 2 Medica l (two) Branch weeks. alirocumab 2022-0 Yes [id number] 75mg inject 1 [facility] (PRALUENT 4-07 mL under ity of PEN) 75 00:00: the skin [place] mg/mL PnIj 00 every 2 Medica l (two) Branch weeks. alirocumab 2022-0 Yes [id number] 75mg inject 1 [facility] (PRALUENT 4-07 mL under ity of PEN) 75 00:00: the skin [place] mg/mL PnIj 00 every 2 Medica l (two) Branch weeks. alirocumab 2021-0 Yes [id number] 75mg inject 1 [facility] (PRALUENT 4-07 mL under ity of PEN) 75 00:00: the skin [place] mg/mL PnIj 00 every 2 Medica l (two) Branch weeks. alirocumab 2021-0 Yes [id number] 75mg inject 1 [facility] (PRALUENT 4-07 mL under ity of PEN) 75 00:00: the skin [place] mg/mL PnIj 00 every 2 Medica l (two) Branch weeks. alirocumab 2021-0 Yes [id number] 75mg inject 1 [facility] (PRALUENT 4-07 mL under ity of PEN) 75 00:00: the skin [place] mg/mL PnIj 00 every 2 Medica l (two) Branch weeks. alirocumab 0 2021- No [id number] 75mg inject 1 [facility] (PRALUENT 4-07 10-13 mL under ity o f PEN) 75 00:00: 00:00 the skin [place] mg/mL PnIj 00 :00 every 2 Medica l (two) Branch weeks. alirocumab 2021-0 2021- No [id number] 75mg inject 1 [facility] (PRALUENT 4-07 10-13 mL under ity o f PEN) 75 00:00: 00:00 the skin [place] mg/mL PnIj 00 :00 every 2 Medica l (two) Branch weeks. omeprazole 2021-0 Yes [id number] 20mg Take 1 [facility] 20 mg 3-16 capsule by ity of capsule 00:00: mouth [place] 00 daily. Medical Branch metoprolol 2021-0 Yes [id number] 25mg Take 1 U nivers tartrate 25 3-16 tablet by ity of mg tablet 00:00: mouth 2 [place] 00 (two) Medical times Branch daily. omeprazole 2021-0 Yes [id number] 20mg Take 1 [facility] 20 mg 3-16 capsule by ity of capsule 00:00: mouth [place] 00 daily. Medical Branch metoprolol 2021-0 Yes [id number] 25mg Take 1 U nivers tartrate 25 3-16 tablet by ity of mg tablet 00:00: mouth (two) Medical times Branch daily. omeprazole 2021-0 Yes [id number] 20mg Take 1 [facility] 20 mg 3-16 capsule by ity of capsule 00:00: mouth 00 daily. Medical Branch metoprolol 2021-0 Yes [id number] 25mg Take 1 U nivers tartrate 25 3-16 tablet by ity of mg tablet 00:00: mouth (two) Medical times Branch daily. omeprazole 2021-0 Yes [id number] 20mg Take 1 [facility] 20 mg 3-16 capsule by ity of capsule 00:00: mouth 00 daily. Medical Branch metoprolol 2021-0 Yes [id number] 25mg Take 1 U nivers tartrate 25 3-16 tablet by ity of mg tablet 00:00: mouth (two) Medical times Branch daily. omeprazole 2021-0 Yes [id number] 20mg Take 1 [facility] 20 mg 3-16 capsule by ity of capsule 00:00: mouth 00 daily. Medical Branch metoprolol 2021-0 Yes [id number] 25mg Take 1 U nivers tartrate 25 3-16 tablet by ity of mg tablet 00:00: mouth (two) Medical times Branch daily. omeprazole 2021-0 Yes [id number] 20mg Take 1 [facility] 20 mg 3-16 capsule by ity of capsule 00:00: mouth 00 daily. Medical Branch metoprolol 2021-0 Yes [id number] 25mg Take 1 U nivers tartrate 25 3-16 tablet by ity of mg tablet 00:00: mouth (two) Medical times Branch daily. omeprazole 2021-0 Yes [id number] 20mg Take 1 [facility] 20 mg 3-16 capsule by ity of capsule 00:00: mouth 00 daily. Medical Branch metoprolol 2021-0 Yes [id number] 25mg Take 1 U nivers tartrate 25 3-16 tablet by ity of mg tablet 00:00: mouth (two) Medical times Branch daily. omeprazole 2021-0 Yes [id number] 20mg Take 1 [facility] 20 mg 3-16 capsule by ity of capsule 00:00: mouth 00 daily. Medical Branch metoprolol 2021-0 Yes [id number] 25mg Take 1 U nivers tartrate 25 3-16 tablet by ity of mg tablet 00:00: mouth (two) Medical times Branch daily. omeprazole 2-0 Yes [id number] 20mg Take 1 [facility] 20 mg 3-16 capsule by ity of capsule 00:00: mouth [place] 00 daily. Medical Branch metoprolol 2021-0 Yes [id number] 25mg Take 1 U nivers tartrate 25 3-16 tablet by ity of mg tablet 00:00: mouth (two) Medical times Branch daily. omeprazole 2021-0 Yes [id number] 20mg Take 1 [facility] 20 mg 3-16 capsule by ity of capsule 00:00: mouth 00 daily. Medical Branch metoprolol 2021-0 Yes [id number] 25mg Take 1 U nivers tartrate 25 3-16 tablet by ity of mg tablet 00:00: mouth (two) Medical times Branch daily. omeprazole 2021-0 Yes [id number] 20mg Take 1 [facility] 20 mg 3-16 capsule by ity of capsule 00:00: mouth 00 daily. Medical Branch metoprolol 2021-0 Yes [id number] 25mg Take 1 U nivers tartrate 25 3-16 tablet by ity of mg tablet 00:00: mouth (two) Medical times Branch daily. omeprazole 2021-0 Yes [id number] 20mg Take 1 [facility] 20 mg 3-16 capsule by ity of capsule 00:00: mouth 00 daily. Medical Branch metoprolol 2021-0 Yes [id number] 25mg Take 1 U nivers tartrate 25 3-16 tablet by ity of mg tablet 00:00: mouth (two) Medical times Branch daily. omeprazole 2021-0 Yes [id number] 20mg Take 1 [facility] 20 mg 3-16 capsule by ity of capsule 00:00: mouth 00 daily. Medical Branch metoprolol 2021-0 Yes [id number] 25mg Take 1 U nivers tartrate 25 3-16 tablet by ity of mg tablet 00:00: mouth (two) Medical times Branch daily. omeprazole 2-0 Yes [id number] 20mg Take 1 [facility] 20 mg 3-16 capsule by ity of capsule 00:00: mouth 00 daily. Medical Branch metoprolol 2022-0 Yes [id number] 25mg Take 1 U nivers tartrate 25 3-16 tablet by ity of mg tablet 00:00: mouth 2 [place] (two) Medical times Branch daily. omeprazole 0 Yes [id number] 20mg Take 1 [facility] 20 mg 3-16 capsule by ity of capsule 00:00: mouth 00 daily. Medical Branch metoprolol 0 Yes [id number] 25mg Take 1 U nivers tartrate 25 3-16 tablet by ity of mg tablet 00:00: mouth 2 [place] (two) Medical times Branch daily. omeprazole 0 Yes [id number] 20mg Take 1 [facility] 20 mg 3-16 capsule by ity of capsule 00:00: mouth [place] 00 daily. Medical Branch metoprolol Yes [id number] 25mg Take 1 U nivers tartrate 25 3-16 tablet by ity of mg tablet 00:00: mouth 2 [place] (two) Medical times Branch daily. latanoprost 2020-07 Yes [id number] 1[drp] Place 1 [facility] 0.005 % 0-28 Drop in ity of ophthalmic 00:00: both eyes [place] drops 00 at Medical bedtime. Branch dorzolamide 2020-07 Yes [id number] 1[drp] Place 1 [facility] -timoloL 0-28 Drop in ity of 22.3-6.8 00:00: [place] mg/mL 00 2 (two) Medical ophthalmic times Branch drops daily. latanoprost 2020-07 Yes [id number] 1[drp] Place 1 [facility] 0.005 % 0-28 Drop in ity of ophthalmic 00:00: both eyes [place] drops 00 at Medical bedtime. Branch dorzolamide 2020-07 Yes [id number] 1[drp] Place 1 [facility] -timoloL 0-28 Drop in ity of 22.3-6.8 00:00: [place] mg/mL 00 2 (two) Medical ophthalmic times Branch drops daily. latanoprost 2020-07 Yes [id number] 1[drp] Place 1 [facility] 0.005 % 0-28 Drop in ity of ophthalmic 00:00: both eyes [place] drops 00 at Medical bedtime. Branch dorzolamide 2020-07 Yes [id number] 1[drp] Place 1 [facility] -timoloL 0-28 Drop in ity of 22.3-6.8 00:00: [place] mg/mL 00 2 (two) Medical ophthalmic times Branch drops daily. latanoprost 2020-07 Yes [id number] 1[drp] Place 1 [facility] 0.005 % 0-28 Drop in ity of ophthalmic 00:00: both eyes [place] drops 00 at Medical bedtime. Branch dorzolamide 2020-07 Yes [id number] 1[drp] Place 1 [facility] -timoloL 0-28 Drop in ity of 22.3-6.8 00:00: [place] eyes [place] mg/mL 00 2 (two) Medical ophthalmic times Branch drops daily. latanoprost 2020-07 Yes [id number] 1[drp] Place 1 [facility] 0.005 % 0-28 Drop in ity of ophthalmic 00:00: both eyes [place] drops 00 at Medical bedtime. Branch dorzolamide 2020-07 Yes [id number] 1[drp] Place 1 [facility] -timoloL 0-28 Drop in ity of 22.3-6.8 00:00: [place] eyes [place] mg/mL 00 2 (two) Medical ophthalmic times Branch drops daily. latanoprost 2020-07 Yes [id number] 1[drp] Place 1 [facility] 0.005 % 0-28 Drop in ity of ophthalmic 00:00: both eyes [place] drops 00 at Medical bedtime. Branch dorzolamide 2020-07 Yes [id number] 1[drp] Place 1 [facility] -timoloL 0-28 Drop in ity of 22.3-6.8 00:00: [place] mg/mL 00 2 (two) Medical ophthalmic times Branch drops daily. latanoprost 2020-07 Yes [id number] 1[drp] Place 1 [facility] 0.005 % 0-28 Drop in ity of ophthalmic 00:00: both eyes [place] drops 00 at Medical bedtime. Branch dorzolamide 2020-07 Yes [id number] 1[drp] Place 1 [facility] -timoloL 0-28 Drop in ity of 22.3-6.8 00:00: [place] mg/mL 00 2 (two) Medical ophthalmic times Branch drops daily. latanoprost 2020-07 Yes [id number] 1[drp] Place 1 [facility] 0.005 % 0-28 Drop in ity of ophthalmic 00:00: both eyes [place] drops 00 at Medical bedtime. Branch dorzolamide 2020-07 Yes [id number] 1[drp] Place 1 [facility] -timoloL 0-28 Drop in ity of 22.3-6.8 00:00: [place] mg/mL 00 2 (two) Medical ophthalmic times Branch drops daily. latanoprost 2020-07 Yes [id number] 1[drp] Place 1 [facility] 0.005 % 0-28 Drop in ity of ophthalmic 00:00: both eyes [place] drops 00 at Medical bedtime. Branch dorzolamide 2020-07 Yes [id number] 1[drp] Place 1 [facility] -timoloL 0-28 Drop in ity of 22.3-6.8 00:00: [place] mg/mL 00 2 (two) Medical ophthalmic times Branch drops daily. latanoprost 2020-07 Yes [id number] 1[drp] Place 1 [facility] 0.005 % 0-28 Drop in ity of ophthalmic 00:00: both eyes [place] drops 00 at Medical bedtime. Branch dorzolamide 2020-07 Yes [id number] 1[drp] Place 1 [facility] -timoloL 0-28 Drop in ity of 22.3-6.8 00:00: [place] mg/mL 00 2 (two) Medical ophthalmic times Branch drops daily. latanoprost 2020-07 Yes [id number] 1[drp] Place 1 [facility] 0.005 % 0-28 Drop in ity of ophthalmic 00:00: both eyes [place] drops 00 at Medical bedtime. Branch dorzolamide 2020-07 Yes [id number] 1[drp] Place 1 [facility] -timoloL 0-28 Drop in ity of 22.3-6.8 00:00: [place] mg/mL 00 2 (two) Medical ophthalmic times Branch drops daily. latanoprost 2020-07 Yes [id number] 1[drp] Place 1 [facility] 0.005 % 0-28 Drop in ity of ophthalmic 00:00: both eyes [place] drops 00 at Medical bedtime. Branch dorzolamide 2020-07 Yes [id number] 1[drp] Place 1 [facility] -timoloL 0-28 Drop in ity of 22.3-6.8 00:00: [place] mg/mL 00 2 (two) Medical ophthalmic times Branch drops daily. latanoprost 2020-07 Yes [id number] 1[drp] Place 1 [facility] 0.005 % 0-28 Drop in ity of ophthalmic 00:00: both eyes [place] drops 00 at Medical bedtime. Branch dorzolamide 2020-07 Yes [id number] 1[drp] Place 1 [facility] -timoloL 0-28 Drop in ity of 22.3-6.8 00:00: [place] mg/mL 00 2 (two) Medical ophthalmic times Branch drops daily. latanoprost 2020-07 Yes [id number] 1[drp] Place 1 [facility] 0.005 % 0-28 Drop in ity of ophthalmic 00:00: both eyes [place] drops 00 at Medical bedtime. Branch dorzolamide 2020-07 Yes [id number] 1[drp] Place 1 [facility] -timoloL 0-28 Drop in ity of 22.3-6.8 00:00: [place] eyes [place] mg/mL 00 2 (two) Medical ophthalmic times Branch drops daily. latanoprost 2020-07 Yes [id number] 1[drp] Place 1 [facility] 0.005 % 0-28 Drop in ity of ophthalmic 00:00: both eyes [place] drops 00 at Medical bedtime. Branch dorzolamide 2020-07 Yes [id number] 1[drp] Place 1 [facility] -timoloL 0-28 Drop in ity of 22.3-6.8 00:00: both eyes [place] mg/mL 00 2 (two) Medical ophthalmic times Branch drops daily. latanoprost 2020-07 Yes [id number] 1[drp] Place 1 [facility] 0.005 % 0-28 Drop in ity of ophthalmic 00:00: both eyes [place] drops 00 at Medical bedtime. Branch dorzolamide 2020-07 Yes [id number] 1[drp] Place 1 [facility] -timoloL 0-28 Drop in ity of 22.3-6.8 00:00: [place] mg/mL 00 2 (two) Medical ophthalmic times Branch drops daily. aspirin 81 Yes S/P 81mg Take 81 mg U nivers mg tablet 4-28 appendectom by mouth ity of 13:04: y daily. [place] 37 Medical Branch pantoprazol 2020- Facial 40mg Take 1 U nivers e 40 mg EC 10-10 05-10 droop tablet by it y of tablet 00:00: 04:59 mouth [place] 00 :00 daily for Medical 30 days. Branch niacin 250 2020- No Facial 250mg Take 1 U nivers mg tablet 10-09 07-08 droop tablet by ity of 00:00: 04:59 mouth at [place] 00 :00 bedtime Medical for 90 Branch days. latanoprost Yes Acquired 1[drp] Place 1 [facility] 0.005 % 4-05 absence of Drop in ity of ophthalmic 00:00: other both eyes [place] drops 00 specified at Medical parts of bedtime. Branch digestive tract HYDROCHLORO Yes Essential TAKE 1 Univers THIAZIDE 2-02 hypertensio CAPSULE BY ity of 12.5 mg 00:00: n MOUTH [place] capsule 00 EVERY DAY Medical Branch brimonidine Yes 1[drp] Place 1 U nivers 0.1 % 2-01 Drop in ity of ophthalmic 00:00: right eye [place] drops 00 every Medical evening. Branch clopidogreL Yes Stroke of 75mg Take 1 [facility] 75 mg 1-12 unknown tablet by ity of tablet 00:00: etiology mouth [place] 00 daily. 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 stage METOPROLOL Yes Essential TAKE 1 [facility] TARTRATE 25 9-28 hypertensio TABLET BY ity of mg tablet 00:00: n MOUTH [place] 00 TWICE A Medical DAY Branch metoprolol Yes hypertensio 25mg Q.5D Take [address] [facility] tartrate 8-31 n by mouth 2 [facility] (LOPRESSOR) 17:23: (two) Medic al 25 MG 26 times Center tablet daily. hydroCHLORO 2020-0 Yes 25mg QD Take [address] [facility] thiazide 8-31 by mouth [facility] (HYDRODIURI 17:23: daily. Medi shama L) 25 MG 26 Center tablet cholecalcif 2020-0 Yes prevention 1000U QD Take 1,[address] [facility] lenore 8-31 of vitamin Units by [facility] (VITAMIN 17:23: D mouth Medical D3) 10 mcg 26 deficiency daily. C enter (400 unit) Tab tablet aspirin 81 2020-0 Yes myocardial 81mg QD Take [address] [facility] MG EC 8- reinfarctio by mouth [facility] tablet 17:23: n daily. Medical 26 prevention Center apixaban 2020-0 Yes 5mg Q.5D Take [address] [facility] (ELIQUIS) 5 03-03 tablet (5 [facility] mg Tab 00:00: mg total) Medica l tablet 00 by mouth 2 Center (two) times daily. Immunizations Ordered Filled Immunization Date Status Comments [facility] e Immunization Name Name Influenza High Dose 2022-03-30 Completed Unive rsity of 00:00:00 [facility] Influenza High Dose 2022-03-30 Completed Unive rsity of 00:00:00 [facility] Influenza High Dose 2022-03-30 Completed Unive rsity of 00:00:00 [facility] Influenza High Dose 2022-03-30 Completed Unive rsity of 00:00:00 [facility] Influenza High Dose 2022-03-30 Completed Unive rsity of 00:00:00 [facility] Influenza High Dose 2022-03-30 Completed Unive rsity of 00:00:00 [facility] Influenza High Dose 2022-03-30 Completed Unive rsity of 00:00:00 [facility] Influenza High Dose 2022-03-30 Completed Unive rsity of 00:00:00 [facility] Influenza High Dose 2022-03-30 Completed Unive rsity of 00:00:00 [facility] Influenza High Dose 2022-03-30 Completed Unive rsity of 00:00:00 [facility] Influenza High Dose 2022-03-30 Completed Unive rsity of 00:00:00 [facility] SARS-COV-2 COVID-19 2022-03-25 Completed Unive rsity of NICKY-SUCROSE 00:00:00 [place] Medica l VACCINE 12 YRS+, Branch BIVALENT 0.3ML, IM, (PFIZER MAGUIRE TOP BOOSTER) SARS-COV-2 COVID-19 2022-03-25 Completed Unive rsity of NICKY-SUCROSE 00:00:00 [place] Medica l VACCINE 12 YRS+, Branch BIVALENT 0.3ML, IM, (PFIZER MAGUIRE TOP BOOSTER) SARS-COV-2 COVID-19 2022-03-25 Completed Unive rsity of NICKY-SUCROSE 00:00:00 [place] Medica l VACCINE 12 YRS+, Branch BIVALENT 0.3ML, IM, (PFIZER MAGUIRE TOP BOOSTER) SARS-COV-2 COVID-19 2022-03-25 Completed Unive rsity of NICKY-SUCROSE 00:00:00 [place] Medica l VACCINE 12 YRS+, Branch BIVALENT 0.3ML, IM, (PFIZER MAGUIRE TOP BOOSTER) SARS-COV-2 COVID-19 2022-03-25 Completed Unive rsity of NICKY-SUCROSE 00:00:00 [place] Medica l VACCINE 12 YRS+, Branch BIVALENT 0.3ML, IM, (PFIZER MAGUIRE TOP BOOSTER) SARS-COV-2 COVID-19 2022-03-25 Completed Unive rsity of NICKY-SUCROSE 00:00:00 [place] Medica l VACCINE 12 YRS+, Branch BIVALENT 0.3ML, IM, (PFIZER MAGUIRE TOP BOOSTER) SARS-COV-2 COVID-19 2022-03-25 Completed Unive rsity of NICKY-SUCROSE 00:00:00 [place] Medica l VACCINE 12 YRS+, Branch BIVALENT 0.3ML, IM, (PFIZER MAGUIRE TOP BOOSTER) SARS-COV-2 COVID-19 2022-03-25 Completed Unive rsity of NICKY-SUCROSE 00:00:00 [place] Medica l VACCINE 12 YRS+, Branch BIVALENT 0.3ML, IM, (PFIZER MAGUIRE TOP BOOSTER) SARS-COV-2 COVID-19 2022-03-25 Completed Unive rsity of NICKY-SUCROSE 00:00:00 [place] Medica l VACCINE 12 YRS+, Branch BIVALENT 0.3ML, IM, (PFIZER MAGUIRE TOP BOOSTER) SARS-COV-2 COVID-19 2022-03-25 Completed Unive rsity of NICKY-SUCROSE 00:00:00 [place] Medica l VACCINE 12 YRS+, Branch BIVALENT 0.3ML, IM, (PFIZER MAGUIRE TOP BOOSTER) SARS-COV-2 COVID-19 2022-03-25 Completed Unive rsity of NICKY-SUCROSE 00:00:00 [place] Medica l VACCINE 12 YRS+, Branch BIVALENT 0.3ML, IM, (PFIZER MAGUIRE TOP BOOSTER) SARS-COV-2 COVID-19 2022-03-25 Completed Unive rsity of NICKY-SUCROSE 00:00:00 [place] Medica l VACCINE 12 YRS+, Branch BIVALENT 0.3ML, IM, (PFIZER MAGUIRE TOP BOOSTER) SARS-COV-2 COVID-19 2022-03-25 Completed Unive rsity of NICKY-SUCROSE 00:00:00 [place] Medica l VACCINE 12 YRS+, Branch BIVALENT 0.3ML, IM, (PFIZER MAGUIRE TOP BOOSTER) SARS-COV-2 COVID-19 2022-03-25 Completed Unive rsity of NICKY-SUCROSE 00:00:00 [place] Medica l VACCINE 12 YRS+, Branch BIVALENT 0.3ML, IM, (PFIZER MAGUIRE TOP BOOSTER) SARS-COV-2 COVID-19 2021-04-09 Completed Unive rsity of PFIZER VACCINE 00:00:00 [facility] SARS-COV-2 COVID-19 2021-04-09 Completed Unive rsity of PFIZER VACCINE 00:00:00 [facility] Branch SARS-COV-2 COVID-19 2021-04-09 Completed Unive rsity of PFIZER VACCINE 00:00:00 [facility] Branch SARS-COV-2 COVID-19 2021-04-09 Completed Unive rsity of PFIZER VACCINE 00:00:00 [facility] Branch SARS-COV-2 COVID-19 2021-04-09 Completed Unive rsity of PFIZER VACCINE 00:00:00 [facility] Branch SARS-COV-2 COVID-19 2021-04-09 Completed Unive rsity of PFIZER VACCINE 00:00:00 [facility] Branch SARS-COV-2 COVID-19 2021-04-09 Completed Unive rsity of PFIZER VACCINE 00:00:00 [facility] Branch SARS-COV-2 COVID-19 2021-04-09 Completed Unive rsity of PFIZER VACCINE 00:00:00 [facility] SARS-COV-2 COVID-19 2021-04-09 Completed Unive rsity of PFIZER VACCINE 00:00:00 [facility] SARS-COV-2 COVID-19 2021-04-09 Completed Unive rsity of PFIZER VACCINE 00:00:00 [facility] Branch SARS-COV-2 COVID-19 2021-04-09 Completed Unive rsity of PFIZER VACCINE 00:00:00 [facility] Branch SARS-COV-2 COVID-19 2021-04-09 Completed Unive rsity of PFIZER VACCINE 00:00:00 [facility] Branch SARS-COV-2 COVID-19 2021-04-09 Completed Unive rsity of PFIZER VACCINE 00:00:00 [facility] Branch SARS-COV-2 COVID-19 2021-04-09 Completed Unive rsity of PFIZER VACCINE 00:00:00 [facility] Branch SARS-COV-2 COVID-19 2021-04-09 Completed Unive rsity of PFIZER VACCINE 00:00:00 [facility] Branch SARS-COV-2 COVID-19 2021-04-09 Completed Unive rsity of PFIZER VACCINE 00:00:00 [facility] Branch SARS-COV-2 COVID-19 2020-08-28 Completed Unive rsity of PFIZER VACCINE 00:00:00 [facility] Branch SARS-COV-2 COVID-19 2020-08-28 Completed Unive rsity of PFIZER VACCINE 00:00:00 [facility] Branch SARS-COV-2 COVID-19 2020-08-28 Completed Unive rsity of PFIZER VACCINE 00:00:00 [facility] Branch SARS-COV-2 COVID-19 2020-08-28 Completed Unive rsity of PFIZER VACCINE 00:00:00 [facility] Branch SARS-COV-2 COVID-19 2020-08-28 Completed Unive rsity of PFIZER VACCINE 00:00:00 [facility] Branch SARS-COV-2 COVID-19 2020-08-28 Completed Unive rsity of PFIZER VACCINE 00:00:00 [facility] Branch SARS-COV-2 COVID-19 2020-08-28 Completed Unive rsity of PFIZER VACCINE 00:00:00 [facility] Branch SARS-COV-2 COVID-19 2020-08-28 Completed Unive rsity of PFIZER VACCINE 00:00:00 [facility] SARS-COV-2 COVID-19 2020-08-28 Completed Unive rsity of PFIZER VACCINE 00:00:00 [facility] Branch SARS-COV-2 COVID-19 2020-08-28 Completed Unive rsity of PFIZER VACCINE 00:00:00 [facility] Branch SARS-COV-2 COVID-19 2020-08-28 Completed Unive rsity of PFIZER VACCINE 00:00:00 [facility] Branch SARS-COV-2 COVID-19 2020-08-28 Completed Unive rsity of PFIZER VACCINE 00:00:00 [facility] Branch SARS-COV-2 COVID-19 2020-08-28 Completed Unive rsity of PFIZER VACCINE 00:00:00 [facility] Branch SARS-COV-2 COVID-19 2020-08-28 Completed Unive rsity of PFIZER VACCINE 00:00:00 [facility] Branch SARS-COV-2 COVID-19 2020-08-28 Completed Unive rsity of PFIZER VACCINE 00:00:00 [facility] Branch SARS-COV-2 COVID-19 2020-08-28 Completed Unive rsity of PFIZER VACCINE 00:00:00 [facility] Branch SARS-COV-2 COVID-19 2020-08-28 Completed Unive rsity of PFIZER VACCINE 00:00:00 [facility] Branch SARS-COV-2 COVID-19 2020-07-29 Completed Unive rsity of PFIZER VACCINE 00:00:00 [facility] Branch SARS-COV-2 COVID-19 2020-07-29 Completed Unive rsity of PFIZER VACCINE 00:00:00 [facility] Branch SARS-COV-2 COVID-19 2020-07-29 Completed Unive rsity of PFIZER VACCINE 00:00:00 [facility] Branch SARS-COV-2 COVID-19 2020-07-29 Completed Unive rsity of PFIZER VACCINE 00:00:00 [facility] Branch SARS-COV-2 COVID-19 2020-07-29 Completed Unive rsity of PFIZER VACCINE 00:00:00 [facility] Branch SARS-COV-2 COVID-19 2020-07-29 Completed Unive rsity of PFIZER VACCINE 00:00:00 [facility] Branch SARS-COV-2 COVID-19 2020-07-29 Completed Unive rsity of PFIZER VACCINE 00:00:00 [facility] Branch SARS-COV-2 COVID-19 2020-07-29 Completed Unive rsity of PFIZER VACCINE 00:00:00 [facility] SARS-COV-2 COVID-19 2020-07-29 Completed Unive rsity of PFIZER VACCINE 00:00:00 [facility] SARS-COV-2 COVID-19 2020-07-29 Completed Unive rsity of PFIZER VACCINE 00:00:00 [facility] [facility] SARS-COV-2 COVID-19 2020-07-29 Completed Unive rsity of PFIZER VACCINE 00:00:00 [facility] SARS-COV-2 COVID-19 2020-07-29 Completed Unive rsity of PFIZER VACCINE 00:00:00 [facility] SARS-COV-2 COVID-19 2020-07-29 Completed Unive rsity of PFIZER VACCINE 00:00:00 [facility] SARS-COV-2 COVID-19 2020-07-29 Completed Unive rsity of PFIZER VACCINE 00:00:00 [facility] SARS-COV-2 COVID-19 2020-07-29 Completed Unive rsity of PFIZER VACCINE 00:00:00 [facility] SARS-COV-2 COVID-19 2020-07-29 Completed Unive rsity of PFIZER VACCINE 00:00:00 [facility] SARS-COV-2 COVID-19 2020-07-29 Completed Unive rsity of PFIZER VACCINE 00:00:00 [facility] Influenza High Dose 2020-04-10 Completed Unive rsity of Quad 00:00:00 [facility] Influenza High Dose 2020-04-10 Completed Unive rsity of [place] 00:00:00 [facility] Influenza High Dose 2020-04-10 Completed Unive rsity of [place] 00:00:00 [facility] Influenza High Dose 2020-04-10 Completed Unive rsity of [place] 00:00:00 [facility] Influenza High Dose 2020-04-10 Completed Unive rsity of [place] 00:00:00 [facility] Influenza High Dose 2020-04-10 Completed Unive rsity of [place] 00:00:00 [facility] Influenza High Dose 2020-04-10 Completed Unive rsity of [place] 00:00:00 [facility] Influenza High Dose 2020-04-10 Completed Unive rsity of [place] 00:00:00 [facility] Influenza High Dose 2020-04-10 Completed Unive rsity of [place] 00:00:00 [facility] Influenza High Dose 2020-04-10 Completed Unive rsity of [place] 00:00:00 [facility] Influenza High Dose 2020-04-10 Completed Unive rsity of [place] 00:00:00 [facility] Influenza High Dose 2020-04-10 Completed Unive rsity of [place] 00:00:00 [facility] Influenza High Dose 2020-04-10 Completed Unive rsity of Quad 00:00:00 [facility] Influenza High Dose 2020-04-10 Completed Unive rsity of [place] 00:00:00 [facility] Influenza High Dose 2020-04-10 Completed Unive rsity of [place] 00:00:00 [facility] Influenza High Dose 2020-04-10 Completed Unive rsity of [place] 00:00:00 [facility] Influenza High Dose 2020-04-10 Completed Unive rsity of [place] 00:00:00 [facility] TDAP 2019-04-23 Completed University of 00:00:00 [facility] TDAP 2019-04-23 Completed University of 00:00:00 [facility] TDAP 2019-04-23 Completed University of 00:00:00 [facility] TDAP 2019-04-23 Completed University of 00:00:00 [facility] TDAP 2019-04-23 Completed University of 00:00:00 [facility] TDAP 2019-04-23 Completed University of 00:00:00 [facility] TDAP 2019-04-23 Completed University of 00:00:00 [facility] TDAP 2019-04-23 Completed University of 00:00:00 [facility] TDAP 2019-04-23 Completed University of 00:00:00 [facility] TDAP 2019-04-23 Completed University of 00:00:00 [facility] TDAP 2019-04-23 Completed University of 00:00:00 [facility] TDAP 2019-04-23 Completed University of 00:00:00 [facility] TDAP 2019-04-23 Completed University of 00:00:00 [facility] TDAP 2019-04-23 Completed University of 00:00:00 [facility] TDAP 2019-04-23 Completed University of 00:00:00 [facility] TDAP 2019-04-23 Completed University of 00:00:00 [facility] TDAP 2019-04-23 Completed University of 00:00:00 [facility] Influenza High Dose 2019-03-04 Completed Unive rsity of 00:00:00 [facility] Influenza High Dose 2019-03-04 Completed Unive rsity of 00:00:00 [facility] Influenza High Dose 2019-03-04 Completed Unive rsity of 00:00:00 [facility] Influenza High Dose 2019-03-04 Completed Unive rsity of 00:00:00 [facility] Influenza High Dose 2019-03-04 Completed Unive rsity of 00:00:00 [facility] Influenza High Dose 2019-03-04 Completed Unive rsity of 00:00:00 [facility] Influenza High Dose 2019-03-04 Completed Unive rsity of 00:00:00 [facility] Influenza High Dose 2019-03-04 Completed Unive rsity of 00:00:00 [facility] Influenza High Dose 2019-03-04 Completed Unive rsity of 00:00:00 [facility] Influenza High Dose 2019-03-04 Completed Unive rsity of 00:00:00 [facility] Influenza High Dose 2019-03-04 Completed Unive rsity of 00:00:00 [facility] Influenza High Dose 2019-03-04 Completed Unive rsity of 00:00:00 [facility] Influenza High Dose 2019-03-04 Completed Unive rsity of 00:00:00 [facility] Influenza High Dose 2019-03-04 Completed Unive rsity of 00:00:00 [facility] Influenza High Dose 2019-03-04 Completed Unive rsity of 00:00:00 [facility] Influenza High Dose 2019-03-04 Completed Unive rsity of 00:00:00 [facility] Influenza High Dose 2019-03-04 Completed Unive rsity of 00:00:00 [facility] Influenza High Dose 2018-04-10 Completed Unive rsity of 00:00:00 [facility] Influenza High Dose 2018-04-10 Completed Unive rsity of 00:00:00 [facility] Influenza High Dose 2018-04-10 Completed Unive rsity of 00:00:00 [facility] Influenza High Dose 2018-04-10 Completed Unive rsity of 00:00:00 [facility] Influenza High Dose 2018-04-10 Completed Unive rsity of 00:00:00 [facility] Influenza High Dose 2018-04-10 Completed Unive rsity of 00:00:00 [facility] Influenza High Dose 2018-04-10 Completed Unive rsity of 00:00:00 [facility] Influenza High Dose 2018-04-10 Completed Unive rsity of 00:00:00 [facility] Influenza High Dose 2018-04-10 Completed Unive rsity of 00:00:00 [facility] Influenza High Dose 2018-04-10 Completed Unive rsity of 00:00:00 [facility] Influenza High Dose 2018-04-10 Completed Unive rsity of 00:00:00 [facility] Influenza High Dose 2018-04-10 Completed Unive rsity of 00:00:00 [facility] Influenza High Dose 2018-04-10 Completed Unive rsity of 00:00:00 [facility] Influenza High Dose 2018-04-10 Completed Unive rsity of 00:00:00 [facility] Influenza High Dose 2018-04-10 Completed Unive rsity of 00:00:00 [facility] Influenza High Dose 2018-04-10 Completed Unive rsity of 00:00:00 [facility] Influenza High Dose 2018-04-10 Completed Unive rsity of 00:00:00 [facility] Influenza High Dose 2016-05-12 Completed Unive rsity of 00:00:00 [facility] Influenza High Dose 2016-05-12 Completed Unive rsity of 00:00:00 [facility] Influenza High Dose 2016-05-12 Completed Unive rsity of 00:00:00 [facility] Influenza High Dose 2016-05-12 Completed Unive rsity of 00:00:00 [facility] Influenza High Dose 2016-05-12 Completed Unive rsity of 00:00:00 [facility] Influenza High Dose 2016-05-12 Completed Unive rsity of 00:00:00 [facility] Influenza High Dose 2016-05-12 Completed Unive rsity of 00:00:00 [facility] Influenza High Dose 2016-05-12 Completed Unive rsity of 00:00:00 [facility] Influenza High Dose 2016-05-12 Completed Unive rsity of 00:00:00 [facility] Influenza High Dose 2016-05-12 Completed Unive rsity of 00:00:00 [facility] Influenza High Dose 2016-05-12 Completed Unive rsity of 00:00:00 [facility] Influenza High Dose 2016-05-12 Completed Unive rsity of 00:00:00 [facility] Influenza High Dose 2016-05-12 Completed Unive rsity of 00:00:00 [facility] Influenza High Dose 2016-05-12 Completed Unive rsity of 00:00:00 [facility] Influenza High Dose 2016-05-12 Completed Unive rsity of 00:00:00 [facility] Influenza High Dose 2016-05-12 Completed Unive rsity of 00:00:00 [facility] Influenza High Dose 2016-05-12 Completed Unive rsity of 00:00:00 [facility] Vital Signs Vital Name Observation Time Observation Value Comments Source HEIGHT 2020-02-24 00:00:00 157.5 cm WEIGHT 2020-02-24 00:00:00 72.5 kg Systolic blood 2022-05-26 15:59:00 162 mm[Hg] Univer sity of pressure [facility] [place] Diastolic blood 2022-05-26 15:59:00 75 mm[Hg] Unive rsity of pressure [facility] Heart rate 2022-05-26 15:59:00 67 /min Universi ty of [facility] [place] Body temperature 2022-05-26 15:53:00 36.83 Naomie Univ ersity of [facility] Respiratory rate 2022-05-26 15:53:00 18 /min Univ ersity of [facility] Body height 2022-05-26 15:53:00 152.4 cm Universi ty of [facility] [place] Body weight 2022-05-26 15:53:00 62.596 kg Universi ty of [facility] [place] BMI 2022-05-26 15:53:00 26.95 kg/m2 Universi ty of [facility] Oxygen saturation in 2022-05-26 15:53:00 99 /min University of Arterial blood by [place] [employer] [facility] Pulse oximetry Branch Systolic blood 2022-03-29 19:10:00 173 mm[Hg] Univer sity of pressure [facility] Diastolic blood 2022-03-29 19:10:00 76 mm[Hg] Unive rsity of pressure [facility] Heart rate 2022-03-29 19:10:00 66 /min Universi ty of [facility] Oxygen saturation in 2022-03-29 19:10:00 97 /min University of Arterial blood by [place] [employer] [facility] Pulse oximetry Branch Body temperature 2022-03-29 19:07:00 36.44 Naomie [facility] Respiratory rate 2022-03-29 19:07:00 17 /min [facility] Body weight 2022-03-29 19:07:00 64.093 kg Universi [facility] BMI 2022-03-29 19:07:00 27.60 kg/m2 [facility] Body temperature 2022-03-18 18:19:00 36.5 Naomie [facility] Body height 2022-03-18 18:19:00 152.4 cm Universi ty [facility] Body weight 2022-03-18 18:19:00 63.504 kg [facility] BMI 2022-03-18 18:19:00 27.34 kg/m2 [facility] HEIGHT 2020-02-24 00:00:00 157.5 cm WEIGHT 2020-02-24 00:00:00 72.5 kg Procedures Procedure Date / Time Performing Clinician Source Performed REFERRAL- 2022-08-06 06:01:00 Doctor Dionicio, [facility] REQUEST/RESPONSE [facility] [place] PATIENT QUESTIONNAIRE 2022-05-26 06:01:00 Doctor Unaadrienne, [facility] [place] MEDICATION CORRESPONDENCE 2022-04-15 05:01:00 Doctor Dionicio, [facility] [place] SARS-COV-2 COVID-19 2022-03-25 13:35:13 Doctor Dionicio, [facility] NICKY-SUCROSE VACCINE 12 [place] [facility] YRS+, BIVALENT 0.3ML, IM, (PFIZER MAGUIRE TOP BOOSTER) Plan of Care Planned Activity Planned Date Details Comments Source Future Scheduled 2029-05-01 Screening for University of Test 00:00:00 [facility] (procedure) [code = Branch [id number]] Future Scheduled 2029-04-23 DTAP/TDAP/TD [facility] 00:[facility]:00 VACCINES (2 - Td or Medical Center Tdap) [code = DTAP/TDAP/TD VACCINES (2 - Td or Tdap)] Future Scheduled 2029-04-23 DTaP,Tdap,and Td Univers ity of Test 00:00:00 Vaccines (2 - Td) [place] [facility] [code = Branch DTaP,Tdap,and Td Vaccines (2 - Td)] Future Scheduled 2022-07-[address] [facility] Test 00:00:00 (12+) [code = Medical Center DEPRESSION SCREENING (12+)] Future Scheduled 2022-07-04 FALLS RISK SCREENING [facility] Test 00:00:00 [code = FALLS RISK Medical C enter SCREENING] Future Scheduled 2022-03-[address] [facility] Test 00:00:00 (#1) [code = Medical Center INFLUENZA VACCINE (#1)] Future Scheduled 2021-10-08 Depression screening Uni versity of Test 00:00:00 (procedure) [code = [facility] dical [id number]] Branch Future Scheduled 2021-06-06 Medicare Annual Universi ty of Test 00:00:00 Wellness Visit [facility] (procedure) [code = Branch [id number]] Future Scheduled 2021-04-10 Zoster Recombinant Postponed from Uni versity of Test 00:00:00 Vaccine (SHINGRIX) 1994 [place] [facility] (1 of 2) [code = (Vaccine not Branch Zoster Recombinant available) Vaccine (SHINGRIX) (1 of 2)] Future Scheduled 2021-02-[address] [facility] Test 00:00:00 Counseling and Medical Cente r Screening (12+) [code = Tobacco Cessation Counseling and Screening (12+)] Future Scheduled 2020-07-[address] [facility] Test 00:00:00 WELLNESS (YEAR 2 or Medical Center FIRST YEAR if no IPPE) [code = MEDICARE ANNUAL WELLNESS (YEAR 2 or FIRST YEAR if no IPPE)] Future Scheduled 1999 Screening for University of Test 00:00:00 malignant neoplasm [place] [facility] of lung (procedure) Branch [code = 007214966] Future Scheduled 1994 SHINGLES VACCINES ([address] [facility] Test 00:00:00 of 2) [code = Medical [place] SHINGLES VACCINES (1 of 2)] Future Scheduled [address] [facility] Test 00:00:00 SCREENING [code = Medical nter HEPATITIS C SCREENING] Future Scheduled 1962 Hepatitis C University of Test 00:00:00 screening [facility] (procedure) [code = Branch [id number]] Future Scheduled 1950 PNEUMOCOCCAL 65+ YRS [facility] Test 00:00:00 (1 - PCV) [code = Medical nter PNEUMOCOCCAL 65+ YRS (1 - PCV)] Future Scheduled 1944 COVID-[address] [facility] Test 00:00:00 (#1) [code = Medical Center COVID-19 VACCINE (#1)] Future Scheduled 1944 DXA SCAN [code = DXA [facility] Test 00:00:00 SCAN] Medical Center Encounters Start End Encounter Admission Attending Care Care Encounter Source Date/Time Date/Time Type Type Clinicians Facility Department ID 2021-10-06 Outpatient ADILENE [facility] SOR [id number] Univers 07:23:47 [facility] 2020-03-27 External Hakan [facility] 1.2.840.114 [id number] Univers 00:00:00 [facility] Apolinar Jacoboton [id number] ity of Admission [place] [id number] [place] Professio [id number] Fl dical nal 059 Branch [facility] 2020-02-24 Inpatient ER CIVUNIGUNTA [facility] Neurology [id number] [facility] 11:05:02 , DESTINY 2022-10-28 2022-10-28 Outpatient R WALTER BIRD [facility] [id number] Univers 09:15:00 09:15:00 ity [facility] 2022-09-27 2022-09-27 Outpatient R HAKAN [facility] [id number] Univers 10:30:00 10:30:00 [facility] 2022-09-23 2022-09-23 Outpatient R HAKAN [facility] [id number] Univers 10:30:00 10:30:00 [facility] 2022-08-30 2022-08-30 Outpatient Barrera MCCLENDON [facility] [id number] Univers 13:00:00 13:00:00 [facility] 2022-08-06 2022-08-06 Telephone Hakan [facility] [id number] Univers 00:00:00 00:00:00 Sendil Apolinar [place] [id number] ity of [facility] [id number] [id number] Fl dical NAL 059 [facility] 2022-08-06 2022-08-06 Orders Doctor LANRE 1.2.840.114 [id number] Univers 00:00:00 00:00:00 Only Unassigned, SHONA [id number] ity of [place] [facility] 4.2.7.2.686 Ziyad as [id number] [address] 2022-08-06 2022-08-06 Telephone [facility] 1.2.840.114 [id number] Univers 00:00:00 00:00:[address] [facility] [id number] it y of Derick [place] [id number] Ziyad as TEODORO?BLEA [id number] [address] OFFICE [facility] 2022-07-16 2022-07-16 Telephone [facility] 1.2.840.114 [id number] Univers 00:00:00 00:00:[address] [facility] [id number] it y of [facility] [id number] Ziyad as TEODORO?BLEA [id number] [address] OFFICE [facility] 2022-05-26 2022-05-26 [facility] [id number] Univers 10:00:00 10:14:57 SENDIL ity of [facility] 2022-05-26 2022-05-26 [facility] 1.2.840.114 [id number] Univers 10:00:00 10:14:57 Visit Sendil Apolinar [place] [id number] ity of [facility] 4[place]2.[place] [id number] [address] 2022-05-26 2022-05-26 Orders Doctor DE DIOS 1.2.840.114 [id number] Univers 00:00:00 00:00:00 Only Unassigned, SHONA [id number] ity of [place] [facility] 4.2.7.2.686 Ziyad as [id number] [address] 2022-04-15 2022-04-15 Refill Hakan [facility] 1.2.840.114 [id number] Univers 00:00:00 00:00:00 Sendtodd [place] 350.1.13.10 ity of [facility] 4.2.7.2.[place] [id number] Fl dical NAL 059 [facility] 2022-04-15 2022-04-15 Orders Doctor LANRE 1.2.840.114 [id number] Univers 00:00:00 00:00:00 Only Unassigned, SHONA [id number] ity of [place] [facility] 4.2.7.2.686 Ziyad as [id number] [address] 2022-03-31 2022-03-31 Telephone Anisha [facility] 1.2.840.114 [id number] Univers 00:00:00 00:00:00 Vimal [employer] [id number] it y of [place] 4.2.7.2.686 Ziyad as TEODORO?BLEA [id number] Fl chris [address] [place] MEDICAL OFFICE BUILDING 2022-03-29 2022-03-29 Outpatient R HAKAN [facility] [id number] Univers 14:00:00 14:29:54 SENDIL goran of [facility] 2022-03-29 2022-03-29 Office Hakan [facility] 1.2.840.114 [id number] Univers 14:00:00 14:29:54 Visit Gilmer [place] 350.1.13.10 ity of [facility] 4.2.7.2.[place] [id number] Fl dical NAL 059 [facility] 2022-03-25 2022-03-25 Imm/Inj Vaccine, Ang Db Cbc Fam [facility] 1. 2.840.114 [id number] Univers 08:10:00 08:31:14 Visit Vimal [place] [facility] 350.1.13 .10 ity of [facility] 4.2.7.2.686 Ziyad as TEODORO?BLEA [phone] Fl chris [address] [place] MEDICAL OFFICE BUILDING 2022-03-25 2022-03-25 [facility] [id number] Univers 08:10:00 08:10:00 VIMAL ity [facility] 2022-03-25 2022-03-25 Manager [employer], Ang - Db [facility] 1.2.840.1 [id number] Univers 07:45:00 08:00:00 Visit Vimal [place] [facility] 350.1.13 .10 ity [facility] 4.2.7.2.686 Ziyad as TEODORO?BLEA [id number] [facility] [address] [place] MEDICAL OFFICE [facility] 2022-03-18 2022-03-18 Outpatient R [facility] [id number] Univers 12:46:14 23:59:00 BRADY ity [facility] 2022-03-18 2022-03-18 [facility] 1.2.840.114 [id number] Univers 12:46:14 23:59:00 Encounter Brady PRIMARY 350.1.13.10 ity [place] [id number] [facility] [address] [place] 2022-03-18 2022-03-18 Outpatient R [facility] [id number] Univers 12:46:14 23:59:00 BRADY ity of [facility] 2022-03-18 2022-03-18 Outpatient R [facility] [id number] Univers 13:00:00 13:41:47 BRADY ity [facility] 2022-03-18 2022-03-18 Office [facility] 1.2.840.114 [id number] Univers 13:00:00 13:41:47 Visit Brady PRIMARY 350.1.13.10 it y of [place] 4[place].2.[place] [id number] [facility] [address] [place] 2022-03-17 2022-03-17 Office [facility] 1.2.840.114 [id number] Univers 10:15:00 10:30:[address] [facility] 350.1.13.10 it y of [place] 4.2.7.2.686 Ziyad as TEODORO?BLEA [id number] [facility] 044 [facility] OFFICE [facility] 2022-03-17 2022-03-17 [facility] [id number] Univers 10:15:00 10:15:00 VIMAL ity [facility] 2022-01-17 2022-01-17 [facility] 1.2.840.114 [id number] Univers 00:00:00 00:00:[address] [facility] 350.1.13.10 it y of [place] 4.2.7.2.686 Ziyad as TEODORO?BLEA [id number] [address] 2022-01-07 2022-01-07 Outpatient R [facility] [id number] Univers 15:34:46 23:59:00 BRADY ity [facility] 2022-01-07 2022-01-07 Outpatient R [facility] [id number] Univers 15:34:46 23:59:00 BRADY ity [facility] 2022-01-07 2022-01-07 [facility] 1.2.840.114 [id number] Univers 15:34:46 23:59:00 Encounter [place] PR[facility] 350.1.13.10 ity [place] [id number] [facility] [address] [place] 2022-01-07 2022-01-07 Office [facility] 1.2.840.114 [id number] Univers 15:20:00 15:30:00 Visit Brady PRIMARY 350.1.13.10 it y of [place].2.[place] [id number] Fl dical [address] [place] 2021-12-10 2021-12-10 Outpatient R [facility] [id number] Univers 14:00:00 14:21:30 BRADY ity [facility] 2021-12-10 2021-12-10 Office [facility] 1.2.840.114 [id number] Univers 14:00:00 14:10:00 Visit Brady PRIMARY 350.1.13.10 it y of [place].2.[place] [id number] Fl dicid [address] [place] 2021-12-10 2021-12-10 Outpatient R [facility] [id number] Univers 14:00:00 14:00:00 BRADY ity of [facility] 2021-11-26 2021-11-26 Outpatient R [facility] [id number] Univers 14:33:22 23:59:00 BRADY ity of [facility] 2021-11-26 2021-11-26 Outpatient R [facility] [id number] Univers 14:33:22 23:59:00 BRADY ity of [facility] 2021-11-26 2021-11-26 [facility] 1.2.840.114 [id number] Univers 14:33:22 23:59:00 Encounter [place] PRIMARY 350.1.13.10 ity of [place] [id number] [facility] [address] [place] 2021-11-26 2021-11-26 Office [facility] 1.2.840.114 [id number] Univers 14:00:00 14:31:50 Visit Brady PRIMARY 350.1.13.10 it y of [place]2.[place] [id number] Fl dicid [address] [place] 2021-11-06 2021-11-06 Outpatient R [facility] SOR [id number] Univers 06:31:00 15:25:00 BRADY ity of [facility] 2021-11-06 2021-11-06 [facility] 1.2.840.114 [id number] Univers 06:31:00 15:25:00 Encounter Brady SHONA 350.1.13.10 ity of HOSPITAL 4.2.7.2.686 Ziyad as [id number] [facility] 104 Branch 2021-11-06 2021-11-06 Surgery DanyaBENITO montoya 1.2.840.114 [id number] Univers 08:55:00 10:25:00 Brady SHONA 350.1.13.10 it y of HOSPITAL 4.2.7.2.686 Ziyad as [phone] [facility] 103 Branch 2021-11-06 2021-11-06 Orders Doctor LANRE 1.2.840.114 [id number] Univers 00:00:00 00:00:00 Only Unassigned, SHONA 350.1.13.10 ity of [place] [facility] 4.2.7.2.686 Ziyad as [phone] [facility] 009 Branch 2021-10-23 2021-10-23 Telephone Adilene [facility] 1.2.840.114 [id number] Univers 00:00:00 00:00:00 Brady SPECIALTY 350.1.13.10 ity of [facility] [place].2.[place].2.[place] C[place] AT [phone] Fl chris VICTORY 198 [facility] 2021-10-08 2021-10-08 [facility] [id number] Univers 11:00:00 11:30:30 SENDIL ity [facility] 2021-10-08 2021-10-08 Office Hakan [facility] 1.2.840.114 [id number] Univers 11:00:00 11:30:30 Visit Gilmer HURTADO 350.1.13.10 ity [facility] [place].2.[place].2.[place] [facility] [phone] Fl chris CHAUDHARY 059 [facility] 2021-10-08 2021-10-08 Outpatient R HAKAN [facility] [id number] Univers 11:00:00 11:30:30 SENDIL ity [facility] 2021-10-08 2021-10-08 Outpatient R HAKAN [facility] [id number] Univers 11:00:00 11:00:00 SENDIL ity [facility] 2021-10-08 2021-10-08 Telephone Hakan [facility] 1.2.889.499 [id number] Univers 00:00:00 00:00:00 Sendil Apolinar [place] 350.1.13.10 ity of [facility] 4.2.7.2.[place] [phone] Fl dicbk NAL 059 [facility] 2021-10-08 2021-10-08 Orders Doctor LANRE 1.2.840.114 [id number] Univers 00:00:00 00:00:00 Only Unassigned, SHONA 350.1.13.10 ity of [place] [facility]PITAL 4.2.7.2.686 Ziyad as [phone] [address] 2021-10-07 2021-10-07 Telephone [facility] 1.2.840.114 [id number] Univers 00:00:00 00:00:[address] [facility] 350.1.13.10 it y of [place] 4.2.7.2.686 Ziyad as TEODORO?BLEA [phone] [facility] 044 [facility] OFFICE [facility] 2021-10-07 2021-10-07 Telephone [facility] 1.2.840.114 [id number] Univers 00:00:00 00:00:[address] [facility] 350.1.13.10 it y of [place] 4.2.7.2.686 Ziyad as TEODORO?BLEA [phone] [facility] 044 [facility] OFFICE [facility] 2021-10-01 2021-10-01 Outpatient R [facility] [id number] Univers 13:27:08 23:59:00 BRADY ity of [facility] 2021-10-01 2021-10-01 [facility] 1.2.840.114 [id number] Univers 13:27:08 23:59:00 Encounter Brady PRIMARY 350.1.13.10 ity of [place].2.[place] FARZ[place] [phone] [facility] 8[address] [place] 2021-10-01 2021-10-01 Outpatient R [facility] [id number] Univers 13:40:00 14:13:30 BRADY ity of [facility] 2021-10-01 2021-10-01 Office [facility] 1.2.840.114 [id number] Univers 13:40:00 14:13:30 Visit Brady PRIMARY 350.1.13.10 it y of C[place] 4.2.7.2.[place] [phone] Fl dical [address] [place] 2021-10-01 2021-10-01 Outpatient R ADILENE [facility] [id number] Univers 13:40:00 14:13:30 BRADY ity of [facility] 2021-09-24 2021-09-24 [facility] 1.2.840.114 [id number] Univers 00:00:00 00:00:00 Management Gilmer HURTADO 350.1.13.10 ity of [place].2.[place] PROF[place]IO [phone] [facility] 059 [facility] 2021-09-16 2021-09-16 Outpatient R ANISHA [facility] [id number] Univers 10:00:00 10:00:00 VIMAL ity of [facility] 2021-09-10 2021-09-10 Telephone [facility] 1.2.840.114 [id number] Univers 00:00:00 00:00:[address] [facility] 350.1.13.10 it y of Derick [facility] 4.2.7.2.686 Ziyad as TEODORO?BLEA [phone] [facility] 044 [place] MEDICAL OFFICE [facility] 2021-09-10 2021-09-10 Orders Doctor DE IDOS 1.2.840.114 [id number] Univers 00:00:00 00:00:00 Only Unassigned, SHONA 350.1.13.10 ity of [place] [facility] 4.2.7.2.686 Ziyad as [phone] [address] 2021-09-01 2021-09-01 Telephone [facility] 1.2.235.475 [id number] [id number] Univers 00:00:00 00:00:00 Gilmer HURTADO 350.1.13.10 ity of [place] [phone] Fl dicid NAL 059 [facility] 2021-08-11 2021-08-11 [facility] 1.2.840.114 [id number] Univers 08:32:23 23:59:00 Encounter Sendtodd [place] 350.1.13.10 ity of [facility] 4.2.7.2.686 [facility] [phone] [facility] 805 [address] 2021-08-11 2021-08-11 [facility] 1.2.840.114 [id number] Univers 08:32:08 23:59:00 Encounter Sendtodd [place] 350.1.13.10 ity of [facility] 4.2.7.2.686 [facility] [phone] [facility] 8[address] [place] 2021-08-11 2021-08-11 [facility] 1.2.840.114 [id number] Univers 08:31:49 08:31:49 Encounter Gilmer HURTADO 350.1.13.10 ity of [facility] 4.2.7.2.686 [facility] [phone] [facility] 8[address] [place] 2021-08-11 2021-08-11 Outpatient R [facility] [id number] Univers 08:31:36 08:30:00 SENDIL ity of [facility] 2021-08-11 2021-08-11 [facility] 1.2.840.114 [id number] Univers 08:30:00 08:30:00 Encounter Gilmer HURTADO 350.1.13.10 ity of [facility] 4.2.7.2.686 [facility] [phone] [facility] 8[address] [place] 2021-08-11 2021-08-11 Orders Doctor LANRE 1.2.840.114 [id number] Univers 00:00:00 00:00:00 Only Unassigned, SHONA 350.1.13.10 ity of [place] [facility] 4.2.7.2.686 Ziyad as [phone] [facility] 009 [address] 2021-07-16 2021-07-16 [facility] 1.2.090.379 [id number] Univers 00:00:00 00:00:00 Gilmer HURTADO 350.1.13.10 ity [facility] [place].2.7.2.[place] [phone] [facility] 059 [facility] 2021-07-09 2021-07-09 Outpatient R [facility] [id number] Univers 13:15:00 13:15:00 ity [facility] 2021-04-30 2021-04-30 Outpatient R [facility] [id number] Univers 10:30:00 11:56:43 ity of [facility] 2021-04-30 2021-04-30 Outpatient R [facility]ON[facility] [id number] Univers 10:30:00 11:56:43 ity [facility] 2021-04-30 2021-04-30 Office [facility] 1.2.840.114 [id number] Univers 10:08:53 11:56:43 Visit [place] Y 350.1.13.10 it y of NATIONAL 4.2.7.2.686 Ziyad as BANK [phone] [facility]. [address] [place] 2021-04-30 2021-04-30 Orders Doctor LANRE 1.2.840.114 [id number] Univers 00:00:00 00:00:00 Only Unassigned, SHONA 350.1.13.10 ity of [place] [facility] 4.2.7.2.686 Ziyad as [phone] [facility] 00[address] [place] 2021-04-13 2021-04-13 Refill [facility] 1.2.840.114 [id number] Univers 00:00:00 00:00:00 [place] Y 350.1.13.10 it y of [facility] 4.2.7.2.686 Ziyad as BANK [phone] [facility]. [address] [place] 2021-04-09 2021-04-09 Outpatient Barrera MARTINEZ [facility] [id number] Univers 11:00:00 11:00:00 LEWIS zimmer [facility] 2021-04-09 2021-04-09 Outpatient Barrera MARTINEZ [facility] [id number] [facility] 11:00:00 10:55:48 LEWIS zimmer [facility] 2021-04-09 2021-04-09 Imm/Inj Nurse, Adc Pob Immunization [facility] 1.2.840.114 [id number] Univers 10:55:40 10:55:48 Visit Lewis Martinez Ac [place] 350.1.13 .10 ity of [place] Profess[place] [phone] Fl dical nal 421 [facility] 2021-04-09 2021-04-09 Office [facility] 1.2.840.114 [id number] Univers 09:53:58 10:49:17 Visit Gilmer [place]urtado 350.1.13.10 ity of [place].2.[place] Profess[place] [phone] Fl dical nal 059 [facility] 2021-03-19 2021-03-19 Outpatient R ANISHA [facility] [id number] Univers 10:00:00 10:09:46 VIMAL [facility] 2021-03-19 2021-03-19 Office [facility] 1.2.840.114 [id number] Univers 09:32:25 09:47:25 Visit [facility] 350.1.13.10 it y of [place] 4.2.7.2.686 Ziyad as Teodoro?Blea [phone] Fl dical kelseyey 044 [facility] Office [facility] 2021-03-06 2021-03-06 Orders Doctor LANRE 1.2.840.114 [id number] Univers 00:00:00 00:00:00 Only Unassigned, SHONA 350.1.13.10 ity of [place] [facility] 4.2.7.2.686 Ziyad as [phone] [address] 2021-02-06 2021-02-06 [facility] 1.2.840.114 [id number] Univers 00:00:00 00:00:00 [facility] 350.1.13.10 it y of [place] 4.2.7.2.686 Ziyad as Professio [phone] [address] 2021-02-03 2021-02-03 Telephone [facility] 1.2.840.114 [id number] Univers 00:00:00 00:00:00 [facility] 350.1.13.10 it y of [place] 4.2.7.2.686 Ziyad as Professio [phone] [address] 2020-12-03 2020-12-03 [facility] [id number] Univers 14:15:00 14:56:33 VIMAL ity [facility] 2020-11-28 2020-11-28 [facility] 1.2.840.114 [id number] Univers 00:00:00 00:00:00 Page [place] 350.1.13.10 i ty of [place].2.[place] Profess[place] [phone] [address] 2020-11-10 2020-11-10 Outpatient R HAKAN [facility] [id number] Univers 15:30:00 14:57:39 SENDTODD mike [facility] 2020-11-10 2020-11-10 Office [facility] 1.2.840.114 [id number] Univers 14:14:45 14:57:39 Visit Gilmer [place]urt[place] 350.1.13.10 ity of [place].2.[place] Profess[place] [phone] [facility] 059 [facility] 2020-11-10 2020-11-10 Telephone [facility] 1.2.840.114 [id number] Univers 00:00:00 00:00:00 [facility] 350.1.13.10 it y of [place] 4.2.7.2.686 Ziyad as Professio [phone] [address] 2020-11-10 2020-11-10 Orders Doctor DE DIOS 1.2.840.114 [id number] Univers 00:00:00 00:00:00 Only Unassigned, SHONA 350.1.13.10 ity of [place] HOSPITAL 4.2.7.2.686 Ziyad as [phone] [facility] 009 [address] 2020-11-07 2020-11-07 Refill [facility] 1.2.840.114 [id number] Univers 00:00:00 00:00:00 [facility] 350.1.13.10 it y of [place] 4.2.7.2.686 Ziyad as Professio [phone] Fl dical nal [address] [place] [address] 2020-10-30 2020-10-30 Outpatient R HAKAN [facility] [id number] Univers 13:30:00 13:30:00 SENDIL ity [facility] 2020-10-29 2020-10-29 Hospital EMMANUEL Cervantes 1.2.840.114 [id number] Univers 06:58:52 23:59:00 Encounter Adeline Winston [facility] 350.1.13.10 ity of [facility] 4.2.7.2.686 [place] [phone] [facility] 8[address] [place] 2020-10-29 2020-10-29 Outpatient R HELEN [facility] [id number] Univers 06:58:52 23:59:00 ADELINE [facility] 2020-10-16 2020-10-16 Outpatient R ANISHA [facility] [id number] Univers 10:15:00 10:31:06 VIMAL [facility] 2020-10-16 2020-10-16 Office [facility] 1.2.840.114 [id number] Univers 09:52:35 10:22:35 Visit [facility] 350.1.13.10 it y of [place] 4.2.7.2.686 Ziyad as Professio [phone] Fl dical nal 0[address] [place] [address] 2020-10-13 2020-10-13 Transition Melba Chacon 1.2.840.114 [id number] Univers 00:00:00 00:00:00 of Care April Byrdy 350.1.13.10 it y of [place]2.7.2.[place] [phone] [facility] [address] 2020-10-13 2020-10-13 Case Helen, [facility] 1.2.588.968 [id number] Univers 00:00:00 00:00:00 Management Adeline BEAN 350.1.13.10 ity of CLINICS 4.2.7.2.[place] [phone] [facility] 803 [address] 2020-10-07 2020-10-10 [facility] Tariq Payne 1.2.840.1 14 [id number] Univers 15:11:00 17:33:00 Encounter Noelle Yee 35 0.1.13.10 ity of Hospital 4.2.7.2.686 Ziyad as [phone] [facility] 100 [address] 2020-10-07 2020-10-10 Inpatient X YEE, [facility] YASMEEN [id number] Univers 15:11:00 17:33:00 NOELLE ity [facility] 2020-10-07 2020-10-10 Inpatient X [facility] YASMEEN [id number] Univers 15:11:00 17:33:00 NOELLE ity [facility] 2020-10-07 2020-10-10 Inpatient X [facility] YASMEEN [id number] Univers 15:11:00 17:33:00 NOELLE ity [facility] 2020-10-07 2020-10-07 Travel 1.2.840.1 1.2.058.392 [id number] Univers 00:00:00 00:00:00 13501.1.1 350.1.13.10 ity of 3.104.2.7 4.[place].3.698 [place] .3.024683 084.8 Medica l .8 Branch 2020-10-04 2020-10-04 Refill Walter Bird 1.2.840.6 [id number] Univers 00:00:00 00:00:00 [place] 46655.1.1 ity of 3.104.2.7 [place] .3.519943 Medica l .8 [place] 2020-10-03 2020-10-03 Emergency Drever, 1.2.840.1 [id number] Univers 10:53:00 12:02:00 Arabella G 91246.1.1 ity of 3.104.2.7 [place] .3.305440 Medica l .8 [place] 2020-10-03 2020-10-03 Emergency X RENETTA, [facility] ERT [id number] Univers 10:53:00 12:02:00 ARABELLA ity of [facility] 2020-10-03 2020-10-03 Orders Doctor 1.2.840.6 [id number] Univers 00:00:00 00:00:00 Only Unassigned, 83072.1.1 ity of [place] 3.104.2.7 [place] .3.238825 Medica l .8 [place] 2020-10-03 2020-10-03 Travel 1.2.840.1 1.2.983.213 [id number] [id number] Univers 00:00:00 00:00:00 10498.1.1 350.1.13.10 ity of 3.104.2.7 4.2.7.3.698 [place] .3.296790 084.8 Medica l .8 [place] 2020-10-02 2020-10-02 Telephone Mickey, 1.2.840.8 [id number] Univers 00:00:00 00:00:00 Peter 46951.1.1 ity of 3.104.2.7 [place] .3.522687 Medica l .8 [place] 2020-09-22 2020-09-22 Outpatient R HAKAN [facility] [id number] Univers 10:00:00 11:07:12 SENDIL ity of [facility] 2020-09-22 2020-09-22 Office Hakan, 1.2.840.9 [id number] Univers 09:44:18 11:07:12 Visit Gilmer Jiang 86533.1.1 ity of 3.104.2.7 [place] .3.111904 Medica l .8 [place] 2020-09-22 2020-09-22 Travel 1.2.840.1 1.2.950.116 8175 1376 Univers 00:00:00 00:00:00 17989.1.1 350.1.13.10 ity of 3.104.2.7 4.2.7.3.698 [place] .3.479059 084.8 Medica l .8 [place] 2020-09-16 2020-09-16 Outpatient R TRUMAN [facility] [id number] Univers 18:40:00 19:34:16 OMA ity of [facility] 2020-09-16 2020-09-16 Urgent Oma Laughlin 1.2.840.3 [id number] Univers 18:09:44 19:34:16 Care Provider, [facility] 09335.1.1 ity of 3.104.2.7 [place] .3.595064 Medica l .8 [place] 2020-09-16 2020-09-16 Telephone Edemebradly, 1.2.840.8 [id number] Univers 00:00:00 00:00:00 Peter 85094.1.1 ity of 3.104.2.7 [place] .3.658803 Medica l .8 [place] 2020-09-16 2020-09-16 Travel 1.2.840.1 1.2.311.352 [id number] [id number] Univers 00:00:00 00:00:00 65733.1.1 350.1.13.10 ity of 3.104.2.7 4.2.7.3.698 [place] .3.691256 084.8 Medica l .8 [place] 2020-09-12 2020-09-12 Orders Doctor 1.2.840.6 [id number] Univers 00:00:00 00:00:00 Only Unassigned, 93043.1.1 ity of [place] 3.104.2.7 [place] .3.662842 Medica l .8 [place] 2020-09-03 2020-09-03 Outpatient R WALTER BIRD [facility] [id number] Univers 13:15:00 13:15:00 ity of [facility] 2020-09-02 2020-09-02 Outpatient R MICKEY [facility] [id number] Univers 13:20:00 14:01:14 PETER ity of [facility] 2020-09-02 2020-09-02 Office Edpato, 1.2.840.4 [id number] Univers 13:02:40 14:01:14 Visit Page 84501.1.1 ity of 3.104.2.7 [place] .3.363519 Medica l .8 [place] 2020-09-02 2020-09-02 Travel 1.2.840.1 1.2.485.637 5455 [id number] Univers 00:00:00 00:00:00 67495.1.1 350.1.13.10 ity of 3.104.2.7 4.2.7.3.698 [place] .3.389486 084.8 Medica l .8 [place] 2020-09-01 2020-09-01 Telephone Edpato, 1.2.840.1 [id number] Univers 00:00:00 00:00:00 Page 87130.1.1 ity of 3.104.2.7 [place] .3.528799 Medica l .8 [place] 2020-08-28 2020-08-28 Outpatient Barrera PALOMINO [facility] [id number] Univers 09:00:00 08:36:09 FEDE ity of [facility] 2020-08-28 2020-08-28 Imm/Inj Fede Palomino 1.2.840.1 [id number] Univers 08:36:01 08:36:09 Visit Nurse, Marquita Pobrayden Immunization 39307.1.1 ity of 3.104.2.7 [place] .3.463928 Medica l .8 [place] 2020-08-28 2020-08-28 Jordan Mcclendon 1.2.840.9 [id number] Univers 00:00:00 00:00:00 Gilmer Jiang 01121.1.1 ity of 3.104.2.7 [place] .3.834278 Medica l .8 [place] 2020-08-25 2020-08-25 Urgent Provider, [facility] 1.2.840.114 [id number] Univers 10:52:07 13:57:17 [facility] 350.1.13.10 ity of [place] 4.2.7.2.686 Ziyad as Caron [phone] Fl dical nal 0[address] [place] [address] 2020-08-25 2020-08-25 Outpatient R [facility] [id number] Univers 11:00:00 11:00:00 ity of [facility] 2020-08-25 2020-08-25 Travel 1.2.840.1 1.2.567.158 0558 1351 Univers 00:00:00 00:00:00 00881.1.1 350.1.13.10 ity of 3.104.2.7 4.2.7.3.698 [place] .3.593635 084.8 Medica l .8 [place] 2020-08-22 2020-08-22 Outpatient [facility] [id number] Univers 09:00:00 09:00:00 FEDE ity of [facility] 2020-08-22 2020-08-22 Telephone [facility], 1.2.840.8 [id number] Univers 00:00:00 00:00:00 Ayad 85617.1.1 ity of 3.104.2.7 [place] .3.203848 Medica l .8 [place] 2020-08-22 2020-08-22 Orders Doctor 1.2.840.8 [id number] Univers 00:00:00 00:00:00 Only Unassigned, 92344.1.1 ity of [place] 3.104.2.7 [place] .3.018814 Medica l .8 [place] 2020-08-21 2020-08-21 Outpatient R [facility] [id number] Univers 10:15:00 10:15:00 ity of [facility] 2020-08-14 2020-08-14 Hospital Sewani, Ayad 1.2.840.9 [id number] Univers 09:30:00 23:59:00 Encounter Karina, Remote Device Check At Home - 1 4350.1.1 ity of 3.104.2.7 [place] .3.220300 Medica l .8 [place] 2020-08-14 2020-08-14 Outpatient Bar[facility] [id number] Univers 09:30:00 23:59:00 AYAD ity of [facility] 2020-08-14 2020-08-14 Orders Jian, 1.2.840.9 [id number] Univers 00:00:00 00:00:00 Only Ayad 99772.1.1 ity of 3.104.2.7 [place] .3.012373 Medica l .8 [place] 2020-08-07 2020-08-07 [place] Jian, 1.2.840.4 [id number] [id number] Univers 00:00:00 00:00:00 Ayad 39647.1.1 ity of 3.104.2.7 [place] .3.115549 Medica l .8 [place] 2020-08-06 2020-08-06 [facility], 1.2.840.8 [id number] [id number] Univers 07:30:00 23:59:00 Encounter Ayad 34019.1.1 it y of 3.104.2.7 [place] .3.834094 Medica l .8 [place] 2020-08-06 2020-08-06 Outpatient Barrera [facility] [id number] Univers 07:00:00 23:59:00 AYAD ity of [facility] 2020-08-06 2020-08-06 Anesthesia John Packer 1.2.840.1 10 [id number] Univers 10:29:00 11:20:00 Event Kim Roy 68119.1.1 ity of 3.104.2.7 [place] .3.551931 Medica l .8 [place] 2020-08-06 2020-08-06 [facility], 1.2.840.7 [id number] Univers 07:10:56 07:29:00 Encounter Ayad 07607.1.1 it y of 3.104.2.7 [place] .3.862882 Medica l .8 [place] 2020-08-06 2020-08-06 Telephone Gullatt, 1.2.840.1 [id number] Univers 00:00:00 00:00:00 Vicky R 37504.1.1 ity of 3.104.2.7 [place] .3.407886 Medica l .8 [place] 2020-08-06 2020-08-06 Travel 1.2.840.1 1.2.238.562 1210 1827 Univers 00:00:00 00:00:00 65249.1.1 350.1.13.10 ity of 3.104.2.7 4.2.7.3.698 [place] .3.950237 084.8 Medica l .8 [place] 2020-08-05 2020-08-05 Telephone Jian, 1.2.840.0 [id number] [id number] Univers 00:00:00 00:00:00 Ayad 96877.1.1 ity of 3.104.2.7 [place] .3.338992 Medica l .8 [place] 2020-08-04 2020-08-04 Telephone Walter Bird 1.2.840.7 [id number] Univers 00:00:00 00:00:00 [place] 30411.1.1 ity of 3.104.2.7 [place] .3.517245 Medica l .8 [place] 2020-08-03 2020-08-03 Refill Valjonasbradly, 1.2.840.8 [id number] Univers 00:00:00 00:00:00 Peter 19594.1.1 ity of 3.104.2.7 [place] .3.411813 Medica l .8 [place] 2020-07-30 2020-07-30 Outpatient R WALTER BIRD [facility] [id number] Univers 13:15:00 14:46:16 ity of [facility] 2020-07-30 2020-07-30 Office Walter Bird 1.2.840.6 [id number] Univers 12:53:04 14:46:16 Visit [place] 74057.1.1 ity of 3.104.2.7 [place] .3.598472 Medica l .8 [place] 2020-07-30 2020-07-30 Orders Doctor 1.2.840.0 [id number] Univers 00:00:00 00:00:00 Only Unassigned, 85434.1.1 ity of [place] 3.104.2.7 [place] .3.570075 Medica l .8 [place] 2020-07-30 2020-07-30 Travel 1.2.840.1 1.2.342.321 [id number] Univers 00:00:00 00:00:00 08642.1.1 350.1.13.10 ity of 3.104.2.[place]3.698 [place] .3.9[place] 084.8 Medica l .8 [place] 2020-07-29 2020-07-29 Outpatient R CANDELARIO, [facility] [id number] Univers 09:00:00 09:06:23 FEDE ity of [facility] 2020-07-29 2020-07-29 Imm/Inj Fede Palomino 1.2.840.1 [id number] Univers 08:49:46 09:06:23 Visit Nurse, Adc Pob Immunization 08263.1.1 ity of 3.104.2.7 [place] .3.356505 Medica l .8 [place] 2020-07-18 2020-07-18 Telephone Mcclendon, 1.2.840.8 [id number] Univers 00:00:00 00:00:00 Sendtodd Jiang 82340.1.1 ity of 3.104.2.7 [place] .3.660820 Medica l .8 [place] 2020-07-16 2020-07-16 Telephone Sewani, 1.2.840.3 [id number] Univers 00:00:00 00:00:00 Ayad 46109.1.1 ity of 3.104.2.7 [place] .3.715378 Medica l .8 [place] 2020-07-15 2020-07-15 Office Sewanthony, 1.2.840.7 [id number] Univers 10:15:06 11:19:45 Visit Ayad 22308.1.1 ity of 3.104.2.7 [place] .3.475191 Medica l .8 [place] 2020-07-15 2020-07-15 Outpatient R CHAYAANTHONY [facility] [id number] Univers 09:40:00 11:19:45 AYAD ity of [facility] 2020-07-15 2020-07-15 Telephone Mickey, 1.2.840.7 [id number] Univers 00:00:00 00:00:00 Peter 06276.1.1 ity of 3.104.2.7 [place] .3.319403 Medica l .8 [place] 2020-07-15 2020-07-15 Travel 1.2.840.1 1.2.529.579 [id number] Univers 00:00:00 00:00:00 24075.1.1 350.1.13.10 ity of 3.104.2.[place]3.698 [place] .3.927[place] 084.8 Medica l .8 [place] 2020-07-14 2020-07-14 Hospital Jian, Ayad 1.2.840.7 [id number] Univers 08:45:00 23:59:00 Encounter Karina, Remote Device Check At Home - 1 4350.1.1 ity of 3.104.2.7 [place] .3.411020 Medica l .8 [place] 2020-07-14 2020-07-14 Outpatient R JIAN [facility] [id number] Univers 08:45:00 23:59:00 AYAD ity of [facility] 2020-07-14 2020-07-14 Orders Jian, 1.2.840.8 [id number] Univers 00:00:00 00:00:00 Only Ayad 47019.1.1 ity of 3.104.2.7 [place] .3.691662 Medica l .8 [place] 2020-07-07 2020-07-07 Outpatient R WALTER BIRD [facility] [id number] Univers 13:30:00 13:30:00 ity of [facility] 2020-06-30 2020-06-30 Outpatient R JERE PATRICIA [facility] [id number] Univers 15:00:00 15:00:00 [facility] [facility] [place] 2020-06-23 2020-06-23 Telephone Hakan [facility] 1.2.861.221 [id number] Univers 00:00:00 00:00:00 Sendil Apolinar Hurtado 350.1.13.10 it[place] [phone] [address] 2020-06-20 2020-06-20 Office Hakan [facility] 1.2.840.114 [id number] Univers 09:54:26 11:40:50 Visit Gilmer Hurtado 350.1.13.10 it[place] [phone] Fl dic[address] 2020-06-20 2020-06-20 Outpatient R HAKAN [facility] [id number] Univers 11:00:00 11:00:00 SENDIL ity [facility] 2020-06-20 2020-06-20 Orders Doctor LANRE 1.2.840.114 [id number] Univers 00:00:00 00:00:00 Only Unassigned, SHONA 350.1.13.10 ity of [place] [facility] 4.2.7.2.686 Ziyad as [phone] [facility] [address] [place] 2020-06-13 2020-06-13 Hospital Ayad Villar 1.2.840.114 [id number] Univers 15:30:00 23:59:00 Encounter Karina, Remote Device Check At [facility] 350.1.13.10 ity of [facility] 4.2.7.2.686 Ziyad as [phone] [facility] [address] [place] 2020-06-13 2020-06-13 [facility] [id number] Univers 15:30:00 15:30:00 AYAD ity [facility] 2020-06-10 2020-06-10 [facility] 1.2.860.126 [id number] Univers 00:00:00 00:00:00 Sendwa K.HNegra [facility] 350.1.13.10 [place] [phone] [facility] [address] [place] Office [facility] 2020-06-09 2020-06-09 Outpatient R HAKAN [facility] [id number] Univers 11:15:00 11:15:00 SENDIL ity of [facility] 2020-06-09 2020-06-09 Manager Retail Store Richie, Marquita Lab Main [facility] 1.2.8 40.114 [id number] Univers 10:47:43 11:02:43 Visit Gilmer McclendonGhislaineNegra Madelaine 350.1.13. 10 [place] [phone] [facility] 353 [facility] 2020-06-09 2020-06-09 Orders Doctor LANRE 1.2.840.114 [id number] Univers 00:00:00 00:00:00 Only Unassigned, SHONA 350.1.13.10 ity of [place] [facility] 4.2.7.2.686 Ziyad as [phone] [address] 2020-06-06 2020-06-06 Office [facility] 1.2.840.114 [id number] Univers 13:19:04 15:41:10 Visit Page Hurtado 350.1.13.10 i [place] [phone] [facility] 044 [facility] 2020-06-06 2020-06-06 Office [facility] 1.2.840.114 [id number] Univers 15:32:31 15:32:48 Visit Page Hurt[place] 350.1.13.10 i [place] [phone] [facility] 044 [facility] 2020-06-06 2020-06-06 Outpatient [facility] [id number] Univers 13:40:00 13:40:00 PAGE ity of [facility] 2020-06-06 2020-06-06 [facility]phone [facility] 1.2.840.114 [id number] Univers 00:00:00 00:00:00 Page Hurtado 350.1.13.10 i [place] [phone] Fl dical nal [address] [facility] 2020-06-04 2020-06-04 [facility] 1.2.232.192 [id number] Univers 00:00:00 00:00:00 Sendtodd Bean 350.1.13.10 [place] [phone] [facility] [address] [place] Office [facility] 2020-06-03 2020-06-03 [facility] 1.2.840.114 [id number] Univers 00:00:00 00:00:00 Page Hurtado 350.1.13.10 i [place] [phone] [facility] 044 [facility] 2020-05-27 2020-05-27 Office [facility] 1.2.840.114 [id number] Univers 11:19:04 12:51:16 Visit Gilmer Hurtado 350.1.13.10 it[place] of [place] [phone] [place] [address] [facility] 2020-05-27 2020-05-27 Outpatient [facility] [id number] Univers 11:30:00 11:30:00 SENDIL ity of [facility] 2020-05-13 2020-05-13 Laboratory Pacemaker/Icd, Adc [facility] 1.2. 840.114 [id number] Univers 13:12:53 14:47:29 Only Sloane Venegas 350.1.13.10 it[place] [phone] [address] 2020-05-13 2020-05-13 Outpatient R [facility] [id number] Univers 14:00:00 14:00:00 ity of [facility] 2020-05-13 2020-05-13 Orders Doctor LANRE 1.2.840.114 [id number] Univers 00:00:00 00:00:00 Only Unassigned, SHONA 350.1.13.10 ity [place] [facility]OSPITAL 4.2.7.2.686 Ziyad as [phone] [address] 2020-04-28 2020-04-28 Telephone [facility] 1.2.233.870 [id number] Univers 00:00:00 00:00:00 Sendil [facility]. [facility] 350.1.13.10 [place] [phone] [address] Office Building 2020-04-18 2020-04-18 Telephone [facility] 1.2.169.465 [id number] Univers 00:00:00 00:00:00 Sendtodd K.H. Madelaine 350.1.13.10 it[place] of [place] [phone] Fl [facility] 059 [facility] 2020-04-14 2020-04-14 Telephone [facility] 1.2.840.114 [id number] Univers 00:00:00 00:00:00 Page Hurtado 350.1.13.10 i [place] [phone] Fl [facility] 044 [facility] 2020-04-13 2020-04-13 Orders Doctor LANRE 1.2.840.114 [id number] Univers 00:00:00 00:00:00 Only Unassigned, SHONA 350.1.13.10 ity [place] HOSPITAL 4.2.7.2.686 Ziyad as [phone] [address] 2020-04-11 2020-04-11 Patient [place] 1.2.840.114 [id number] Univers 00:00:00 00:00:00 Outreach Jeannette [facility] 350.1.13.10 i ty of [place] 4.2.7.2.686 [place] Professio [phone] Fl dic[address] Office [facility] One 2020-04-10 2020-04-10 Office [facility] 1.2.840.114 [id number] Univers 12:37:07 14:46:16 Visit Page Hurtado 350.1.13.10 i [place] [phone] Fl dical nal 044 [facility] 2020-04-10 2020-04-10 Outpatient [facility] [id number] Univers 13:00:00 13:00:00 PAGE ity [facility] 2020-04-09 2020-04-09 Telephone [facility] 1.2.353.546 [id number] Univers 00:00:00 00:00:00 [facility] 350.1.13.10 [place] [phone] [facility] [address] [place] Office Building 2020-04-03 2020-04-03 Office Walter Bird [facility] 1.2.840.114 [id number] Univers 14:30:09 14:45:09 Visit Chester Winston 350.1.13.10 it y of [facility] 4.2.7.2.686 Ziyad as BANK [phone] [facility] BLDG. [address] 2020-04-03 2020-04-03 Outpatient R WALTER BIRD [facility] [id number] Univers 14:45:00 14:45:00 ity of [facility] 2020-04-03 2020-04-03 Orders Doctor DE DIOS 1.2.840.114 [id number] Univers 00:00:00 00:00:00 Only Unassigned, SHONA 350.1.13.10 ity of [place] [facility] 4.2.7.2.686 Ziyad as [phone] [facility] [address] 2020-03-31 2020-03-31 Vimal Romero [facility] 1.2.840.114 [id number] Univers 00:00:00 00:00:00 Jennifer Hurtado 350.1.13.10 i ty of [place] [phone] Fl dical nal [address] [facility] 2020-03-31 2020-03-31 Telephone [facility] 1.2.840.114 [id number] Univers 00:00:00 00:00:00 Page Hurtado 350.1.13.10 i [place] [phone] [facility] 044 [facility] 2020-03-28 2020-03-28 Telephone [facility] 1.2.840.114 [id number] Univers 00:00:00 00:00:00 Page Hurtado 350.1.13.10 i ty [place] [phone] [address] 2020-03-27 2020-03-27 Office [facility] 12.840.114 [id number] [facility] 12:42:08 13:48:55 Visit Gilmer Hurtado 350.1.13.10 it[place] of [place] [phone] [facility] 059 [facility] 2020-03-27 2020-03-27 Outpatient [facility] [id number] Univers 13:00:00 13:00:00 SENDIL ity of [facility] 2019-12-10 2019-12-10 Telephone [facility] 1.2.840.114 [id number] Univers 00:00:00 00:00:00 Page Hurtado 350.1.13.10 i [place] [phone] [address] 2019-11-05 2019-11-05 Refill [facility] 1.2.840.114 [id number] Univers 00:00:00 00:00:00 Page Bean 350.1.13.10 it y of [place] 4.2.7.2.686 [place] Professio [phone] [address] Office [facility] 2019-10-26 2019-10-26 [facility] 1.2.840.114 [id number] Univers 00:00:00 00:00:00 Page Hurtado 350.1.13.10 i [place] [phone] Fl dical nal 044 [facility] 2019-10-12 2019-10-12 Telephone [facility] 1.2.744.603 [id number] Univers 00:00:00 00:00:00 Sendil Apolinar [place] 350.1.13.10 it[place] of [place] [phone] Fl dical nal 059 [facility] 2019-09-24 2019-09-24 Telephone [facility] 1.2.177.642 [id number] Univers 00:00:00 00:00:00 Gilmer Hurtado 350.1.13.10 it[place] of [place] [phone] Fl dical nal 059 [facility] 2019-09-19 2019-09-19 Outpatient R WALTER BIRD [facility] [id number] Univers 14:45:00 14:45:00 ity [facility] 2019-09-19 2019-09-19 Vimal Romero [facility] 1.2.840.114 [id number] Univers 00:00:00 00:00:00 Jennifer Hurtado 350.1.13.10 i [place] [phone] Fl dical nal 231 [facility] 2019-09-18 2019-09-18 Office Ezio ARZULEMA 1.2.840.114 [id number] Univers 15:18:50 16:20:14 Visit [facility] 350.1.13.10 it y of Surgical 4.2.7.2.686 [place] as Specialti [phone] Fl dical es [address] [facility] 2019-09-18 2019-09-18 Outpatient R EZIO [facility] [id number] Univers 16:00:00 16:00:00 [facility] 2019-09-18 2019-09-18 Orders Doctor DE DIOS 1.2.840.114 [id number] Univers 00:00:00 00:00:00 Only Unassigned, SHONA 350.1.13.10 ity of [place] [facility] 4.2.7.2.686 Ziyad as [phone] [facility] [address] [place] 2019-09-17 2019-09-17 Telephone [facility] 1.2.275.491 [id number] Univers 00:00:00 00:00:00 Sloane [place] 350.1.13.10 [place] [phone] Fl dical [facility] 059 [facility] 2019-09-17 2019-09-17 Telephone [facility] 1.2.332.517 [id number] 00:00:00 00:00:00 Sloane [place] 350.1.13.10 [place] 4.2.7.2.686 Professio [phone] [address] 2019-09-13 2019-09-13 Telephone [facility] 1.2.840.114 [id number] Univers 00:00:00 00:00:00 [facility] 350.1.13.10 it y of Surgical 4.2.7.2.686 [place] Specialti [phone] Fl dical es [address] [facility] 2019-09-12 2019-09-12 Office EMMANUEL OrdonezIT 1.2.840.114 [id number] Univers 10:35:36 11:07:17 Visit Pina Y 350.1.13.10 it y of [place] 4.2.7.2.686 [place]iy[place] as BANK [phone] [facility] [address] [place] 2019-09-12 2019-09-12 Outpatient R MERY [facility] [id number] Univers 10:00:00 10:00:00 PINA ity of [facility] 2019-09-03 2019-09-04 Office Walter Bird [facility] 1.2.840.114 [id number] Univers 13:59:27 13:09:28 Visit Chester Y 350.1.13.10 it y of [place] 4.2.7.2.686 Ziyad as BANK [phone] [facility] [address] [place] 2019-09-03 2019-09-03 Outpatient R WALTER BIRD [facility] [id number] Univers 14:15:00 14:15:00 ity of [facility] 2019-09-03 2019-09-03 Outpatient R [facility]ON [facility] [id number] Univers 14:15:00 14:15:00 ity of [facility] 2019-09-03 2019-09-03 Telephone Pelon [facility] 1.2.840.11 [id number] Univers 00:00:00 00:00:00 Chester Y 350.1.13.10 it y of [place] 4.2.7.2.686 Ziyad as BANK [phone] [facility]. [address] [place] 2019-08-31 2019-08-31 Telephone Pelon [facility] 1.2.840.11 [id number] Univers 00:00:00 00:00:00 Chester Y 350.1.13.10 it y of [place] 4.2.7.2.686 Ziyad as BANK [phone] [facility]. [address] [place] 2019-08-23 2019-08-23 Orders Doctor LANRE 1.2.840.114 [id number] Univers 00:00:00 00:00:00 Only Unassigned, SHONA 350.1.13.10 ity [place] [facility] 4.2.7.2.686 Ziyad as [phone] [facility] [address] [place] 2019-08-22 2019-08-22 Office Pelon, [facility] 1.2.840.114 [id number] Univers 14:35:18 16:08:31 Visit Chester Y 350.1.13.10 it y of [place] 4.2.7.2.686 Ziyad as BANK [phone] [facility]. [address] [place] [address] 2019-08-22 2019-08-22 Telephone Hakan [facility] 1.2.058.852 [id number] Univers 00:00:00 00:00:00 Gilmer Hurtado 350.1.13.10 it[place]2.[place] [phone] Fl dical [facility] 059 [facility] 2019-08-13 2019-08-13 Office Pelon, [facility] 1.2.840.114 [id number] Univers 14:51:19 16:47:28 Visit Chester Winston 350.1.13.10 it y of [facility] 4.2.7.2.686 Ziy[place] as BANK [phone] [facility] BLDG. [address] 2019-08-13 2019-08-13 Orders Doctor LANRE 1.2.840.114 [id number] Univers 00:00:00 00:00:00 Only Unassigned, SHONA 350.1.13.10 ity [place] [facility] 4.2.7.2.686 Ziyad as [phone] [facility] [address] 2019-08-13 2019-08-13 Telephone [facility] 1.2.840.114 [id number] Univers 00:00:00 00:00:00 Page Hurtado 350.1.13.10 [place] [phone] Fl dical nal [address] [place] [address] 2019-08-08 2019-08-08 Telephone [facility] 1.2.840.114 [id number] Univers 00:00:00 00:00:00 Page Hurtado 350.1.13.10 i ty of [place] 4[place]2.7.2.[place] [phone] Fl dical nal 044 [facility] 2019-08-06 2019-08-06 Telephone [facility] 1.2.840.114 [id number] Univers 00:00:00 00:00:00 Page Hurtado 350.1.13.10 i ty [place] 4[place].2.[place] [phone] Fl dical nal 044 [facility] 2019-08-03 2019-08-03 Telephone [facility] 1.2.840.114 [id number] Univers 00:00:00 00:00:00 Page Hurtado 350.1.13.10 i [place] of [place] 4[place].2.[place] [phone] Fl dical nal 044 [facility] 2019-07-31 2019-07-31 Telephone [facility] 1.2.974.929 [id number] Univers 00:00:00 00:00:00 [facility] 350.1.13.10 [place] of [place].2.686 [place] [phone] [facility] Primary & [address] [facility] 2019-07-31 2019-07-31 [facility]ill [facility] 1.2.840.114 [id number] Univers 00:00:00 00:00:00 Page Hurtado 350.1.13.10 i ty of [place].2.[place] [phone] Fl dical nal 044 [facility] 2019-07-31 2019-07-31 Telephone [facility] 1.2.840.114 [id number] Univers 00:00:00 00:00:00 Page Hurtado 350.1.13.10 i ty [place].2.[place] [phone] Fl dical nal 044 [facility] 2019-07-30 2019-07-30 Telephone [facility] 1.2.840.114 [id number] Univers 00:00:00 00:00:00 Page Hurtado 350.1.13.10 i ty [place].2.[place] [phone] Fl dical nal 044 [facility] 2019-07-25 2019-07-25 Office Crescencio [facility] 1.2.720.408 [id number] Univers 13:25:23 13:46:14 Visit [facility] 350.1.13.10 it y of Surgical 4.2.7.2.686 [place] as Specialti [phone] Fl dical es [address] [facility] 2019-07-20 2019-07-20 Manager Retail Store 2, Adc Lab [facility] 1.2.840.114 [id number] Univers 08:44:52 08:59:52 Visit Page Arevalo 350.1.13.10 ity of [place].2.[place] [phone] Fl dical nal 353 [facility] 2019-07-19 2019-07-19 Telephone Crescencio [facility] 1.2.840.114 [id number] Univers 00:00:00 00:00:00 Kavon Hurt[place] 350.1.13.10 i ty [place].2.[place] [phone] Fl dical nal 198 [facility] 2019-07-17 2019-07-17 Manager Retail Store 2, Adc Lab [facility] 1.2.840.114 [id number] Univers 16:09:05 16:24:05 Visit Page Arevalo 350.1.13.10 ity of [place] 4[place].7.2.[place] [phone] Fl dical nal 353 [facility] 2019-07-17 2019-07-17 Office Mickey [facility] 1.2.840.114 [id number] Univers 13:26:35 15:42:18 Visit Page Hurtado 350.1.13.10 i ty of [place] 4[place]2.7.2.[place] [phone] Fl dical nal 044 [facility] 2019-03-12 2019-03-12 Office Walter Bird [facility] 1.2.840.114 [id number] Univers 13:08:43 13:58:40 Visit Chester Winston 350.1.13.10 it y of [facility] 4.2.7.2.686 Ziyad as BANK [phone] [facility] BLDG. [address] 2019-03-01 2019-03-01 Office Vimal Mccall [facility] 1.2.840.114 [id number] Univers 12:38:24 13:28:40 Visit Jennifer Hurt[place] 350.1.13.10 i ty of [place].7.2.[place] [phone] Fl dical nal 044 [facility] 2019-03-01 2019-03-01 Orders Doctor DE DIOS 1.2.840.114 [id number] Univers 00:00:00 00:00:00 Only Unassigned, SHONA 350.1.13.10 ity [place] [facility]PITAL 4.2.7.2.686 Ziyad as [phone] [facility] [address] 2019-02-01 2019-02-01 Office Vladislav [facility] 1.2.840.114 [id number] Univers 12:25:24 14:51:24 Visit Garland britt 350.1.13.10 ity of [facility] 4.2.7.2.686 Ziyad as BANK [phone] [facility] BLDG. [address] [place] 2019-01-26 2019-01-26 RefVimal Louis [facility] 1.2.840.114 [id number] Univers 00:00:00 00:00:00 Jennifer Hurtado 350.1.13.10 i ty of [place] [phone] Fl dical nal 044 [facility] 2019-01-25 2019-01-25 Refmayra Lancaster [facility] 1.2.840.114 [id number] Univers 00:00:00 00:00:00 [facility] 350.1.13.10 it y of [place] 4.2.7.2.686 Ziyad as Professio [phone] Fl dical nal [address] [place] Office Building One Results Test Description Test Time Test Comments Results Result Comments Source CBC W/PLT COUNT & AUTO DIFFERENTIAL 2020-03-03 06:21:00 Test Item Value Reference Range Interpretation Comme nts WHITE BLOOD CELL COUNT (BEAKER) (test code = 775) 6.9 K/ L 3.5- 10.5 RED BLOOD CELL COUNT (BEAKER) (test code = 761) 5.45 M/ L 3.93-5 .22 H HEMOGLOBIN (BEAKER) (test code = 410) 14.8 GM/DL 11.2-15.7 HEMATOCRIT (BEAKER) (test code = 411) 45.2 % 34.1-44.9 H MEAN CORPUSCULAR VOLUME (BEAKER) (test code = 753) 82.9 fL 79. 4-94.8 MEAN CORPUSCULAR HEMOGLOBIN (BEAKER) (test code = 751) 27.2 pg 25.6-32.2 MEAN CORPUSCULAR HEMOGLOBIN CONC (BEAKER) (test code = 752) 32.7 GM/DL 32.2-35.5 RED CELL DISTRIBUTION WIDTH (BEAKER) (test code = 412) 15.9 % 11.7-14.4 H PLATELET COUNT (BEAKER) (test code = 756) 150 K/CU MM 150-450 MEAN PLATELET VOLUME (BEAKER) (test code = 754) 11.7 fL 9.4-12 .3 NUCLEATED RED BLOOD CELLS (BEAKER) (test code = 413) 0 /100 WBC 0 -0 NEUTROPHILS RELATIVE PERCENT (BEAKER) (test code = 429) 68 % LYMPHOCYTES RELATIVE PERCENT (BEAKER) (test code = 430) 12 % MONOCYTES RELATIVE PERCENT (BEAKER) (test code = 431) 9 % EOSINOPHILS RELATIVE PERCENT (BEAKER) (test code = 432) 11 % BASOPHILS RELATIVE PERCENT (BEAKER) (test code = 437) 0 % NEUTROPHILS ABSOLUTE COUNT (BEAKER) (test code = 670) 4.64 K/ L 1.56-6.13 LYMPHOCYTES ABSOLUTE COUNT (BEAKER) (test code = 414) 0.80 K/ L 1.18-3.74 L MONOCYTES ABSOLUTE COUNT (BEAKER) (test code = 415) 0.63 K/ L 0. 24-0.36 H EOSINOPHILS ABSOLUTE COUNT (BEAKER) (test code = 416) 0.74 K/ L 0.04-0.36 H BASOPHILS ABSOLUTE COUNT (BEAKER) (test code = 417) 0.03 K/ L 0. 01-0.08 IMMATURE GRANULOCYTES-RELATIVE PERCENT (BEAKER) (test code 0 % 0-1 = 2801) [id number] 06:09:00 Test Item Value Reference Range Interpretation Comments MAGNESIUM (BEAKER) (test code = 2.3 mg/dL 1.6-2.6 627) Rewinder Operator Helper ID - PIAYA LBASIC METABOLIC [id number] 06:09:00 Test Item Value Reference Range Interpretation [...] S NOT APPLICABLE FOR DIALYSIS PATIEN TS. Rewinder Operator Helper ID - SANIYA LSpecimen slightly ictericBASIC METABOLIC [id number] 11:34:00 Test Item Value Reference Range Interpretation [...] S NOT APPLICABLE FOR DIALYSIS PATIEN TS. Rewinder Operator Helper ID - QUINCY CSpecimen slightly ictericBASIC METABOLIC [id number] 07:08:00 Test Item Value Reference Range Interpretation [...] S NOT APPLICABLE FOR DIALYSIS PATIEN TS. Rewinder Operator Helper ID - JUL CSpecimen slightly ictericCBC W/PLT COUNT & AUTO [id number] 06:56:00 Test Item Value Reference Range Interpretation [...] 0-1 PERCENT (BEAKER) (test code = 2801) OSMOLALITY, [id number] 12:08:00 Test Item Value Reference Range Interpretation Comments OSMOLALITY URINE (BEAKER) (test 597 mOsm/kg 50-1,200 mOsm/kg code = 614) SODIUM, RANDOM [id number] 11:50:00 Test Item Value Reference Range Interpretation Comments SODIUM URINE (BEAKER) (test code = 73 meq/L 243) Reference Range: No NormalsOperator ID - NTPOSMOLALITY, [id number] 11:07:00 Test Item Value Reference Range Interpretation Comments OSMOLALITY, SERUM (BEAKER) (test 258 mOsm/kg 275-295 L code = 615) BASIC METABOLIC [id number] 06:33:00 Test Item Value Reference Range Interpretation [...] S NOT APPLICABLE FOR DIALYSIS PATIEN TS. Rewinder Operator Helper ID - NTPSpecimen slightly ictericCBC W/PLT COUNT & AUTO [id number] 06:07:00 Test Item Value Reference Range Interpretation [...] (BEAKER) (test code = 2801) CT, CAROTID, [id number] 14:04:00Unlisted Reason for Exam - Click Yes and Enter Reason Below->YesUnlisted Reason for Exam->Evaluate vertebral artery originFINAL REPORT CTA Neck and upper chest Clinical history: Unlisted Reason for ExamNeuro deficit, acute, stroke suspectedEvaluate vertebral artery origin TECHNIQUE: Contiguous axial images of the neck with intravenous contrast. Coronal and sagittal reformations were also performed. 3-D reconstructions were performed using a volume rendered technique separately on a workstation. This exam was performed according to the departmental dose optimization program which includes automatedexposure control, adjustment of the mA and/or kV according to the patient size, and/or use of an iterative reconstruction technique. Stenosis evaluation reported in compliance with NASCET criteria. COMPARISON: None FINDINGS: Great vessel origins: No occlusion or high- grade stenosis. Carotid arteries: Atherosclerosis of the bilateral carotid bifurcations. There is approximately 60% focal stenosis of the right ICA and 50% focal stenosis of the left ICA per NASCET criteria. Vertebral arteries: Mild stenosis of the left vertebral origin. Mild atherosclerosis of the right vertebral origin without significant stenosis. The remainder of the vertebral arteries are of normal course and caliber. No fractureor suspicious osseous lesion. There is a 1.2 cm left thyroid lobe nodule, for which no further imaging is recommended. Visualized lung apices are clear. Bilateral pleural thickening and calcification. Trace pleural fluid. IMPRESSION:60% focal stenosis of the right ICA and 50% focal stenosis of the left ICA per NASCET criteria. Mild stenosis of the left vertebral origin. Signed: Becca Leach Verified Date/Time: 02/27/2020 14:04:11 NV, ANGIOGRAM, [id number] 11:19:00 Reason for exam:->carotid stenosisFINAL REPORT Date of Procedure: February 25, 2020 Surgeon: Kian JAVIERAssistant: Steven Nielsen MD Pre-operative diagnosis: Carotid StenosisPost-operative diagnosis: Carotid Stenosis Procedure: Diagnostic Angiogram Vessels studied Right Radial ArteryRight Vertebral ArteryRight Common Carotid ArteryLeft Common Carotid Artery Anesthesiologist: per anesthesia recordsAnesthesia Type: MAC Complications: None Indication for procedure:74F presenting with left sided weakness, right ischemic stroke and indication of carotid stenosis on non- invasive imaging. DSA for characterization of degree of stenosis. Procedure in Detail: AngiogramFollowing explanation of the benefits, risks and alternatives for the procedure, informed consent was obtained from the patient. The risks including butnot limited to stroke, intracranial hemorrhage, vascular injury to the cervical or access vessels were discussed. A time-out was performed. Both groins and wrists were prepped in the usual sterile fashion using Chloroprep, and sterilely draped. Access was initiated at the right distal radial artery and a 5/6 slender sheath was placed and maintained on heparinized flush. A SkemA 2 glide diagnostic catheter was introduced and brought into the aortic arch under fluoroscopic guidance. The diagnostic catheter was used to catheterize the right common carotid artery, right vertebral artery and left common carotid artery. Upon each successive selective catheterization, digital subtraction angiography using the appropriate rate and volume of contrast in multiple projections was performed. After adequatevisualization of all vessels all sheaths and catheters were removed and a prelude band was used for radial hemostasis. The patient was transported to PACU in stable condition. Findings: Right Radial Artery (AP)- radial artery is widely patent without evidence of ulceration . There is very mild proximalradial spasm. Right Common Carotid Artery (AP, Lateral)-There is a calcified atherosclerotic plaque located circumferentially at the internal carotid origin that causes a maximum of 42% stenosis by NASCET criteria. There is not a flow limiting stenosis as the ICA/ECA territories fill concurrently. -The visualized branches of the external carotid artery are normal in course and appearance. There is noevidence of arteriovenous shunting. The capillary and venous phases are normal -The cervical carotidartery is patent without areas of stenosis, dissection or ulceration; and is without branches -The petrous carotid artery is patent without areas of stenosis, dissection or ulceration the mandibulovidian artery is not visualized, no petrosal segment aneurysms -The cavernous carotid artery is patent without areas of stenosis, dissection, or ulceration, meningohypophyseal trunk and inferolateral trunksare not visualized, there are no cavernous segment [...] evidence of aneurysms at their origins. The colorectal surgeon fill symmetrically, there is no evidence of stenosis or vasospasm. There is faint reflux in to the posterior communicating arteries. The capillary phase is normal and a normal venous drainage pattern is notedLeft Common Carotid Artery (AP, Lateral,)-There is a calcified atherosclerotic plaque at the bifurcation that causes a maximum of 35% stenosis by NASCET criteria. There is not a flow limiting stenosis as the ICA/ECA territories fill concurrently. -The visualized branches of the external carotid arteryare normal in course and appearance. There is [...] not visualized, there are no cavernous segment a neurysms -The supraclinoidal carotid artery, the opthalmic, communicating, and choroidal segments are patent without areas of stenosis and without aneurysms. The posterior communicating artery is smallsized and with an infundibular origin, the anterior choroidal artery is visualized. The A1 and M1 segments are visualized and are without stenosis or vasospasm. -The ILDEFONSO fill physiologically throughouttheir territory without cross-filling across the anterior communicating [...] Chaudhary MDReport Verified Date/Time: 02/27/2020 11:19:35 Reading Location: [place] [address] Neuro Angio Reading Room POCT-GLUCOSE [id number] 10:30:00 Test Item Value Reference Range Interpretation Comments POC-GLUCOSE METER 106 mg/dL 70-110 : TESTED A [facility] 6720 (BEAKER) (test code = [place], 1538) [address]: Rewinder Operator Helper/Techni javi ID = [id number] for MICHELLE OTERO BASIC METABOLIC [id number] 09:48:00 Test Item Value Reference Range Interpretation [...] S NOT APPLICABLE FOR DIALYSIS PATIEN TS. Rewinder Operator Helper ID - QUINCY CCBC W/PLT COUNT & AUTO [id number] 09:07:00 Test Item Value Reference Range Interpretation [...] 0-1 PERCENT (BEAKER) (test code = 2801) TROPONIN [id number] 14:06:00 Test Item Value Reference Range Interpretation [...] failure, acidosis, acute neurological disease, and persistent tachyarrhythmia.Rewinder Operator Helper ID - KAVIN MMR, BRAIN, WITHOUT [id number] 14:04:00Unlisted Reason for Exam - Click Yes and Enter Reason Below->NoFINAL REPORT MR, BRAIN, WITHOUT CONTRAST INDICATION: Stroke, follow up TECHNIQUE: Multiplanar, multisequence MR imaging of the brain without intravenous contrast. COMPARISON: Outside CT and CTA 02/24/2020 FINDINGS: Intracranial: There is multifocal restricted diffusion and FLAIR hyperintensity within the right posterior parietal lobe and right mesial occipital lobe. There are fociof susceptibility weighted signal dropout within the mesial parietal occipital junction suggestive of hemorrhagic conversion. No mass effect. No hydrocephalus. The distal right HEAD LOFT WORKER flow void is not visualized. Sinuses: No evidence of sinusitis. Mastoids are clear. Orbits: Globes are intact. Calvarium \\T\\ scalp: Unremarkable. 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 Signed: Becca Leach MDReport Verified Date/Time: 02/25/2020 14:04:12 SARS-COV2/RT-PCR ([facility])2020-02-25 13:28:00 Test Item Value Reference Range Interpretation Comments SARS-COV2/RT-PCR (test Negative Not Detected, Negative, code = 1698404) See external report for linked test SARS-COV-2 PERFORMING LAB [facility] (test code = 1128621) Negative result for this test determines that [...] justifying the authorization of the emergency use ofin vitro diagnostic tests for detection and/or diagnosis of COVID-19 is terminated under Section 564(b)(2) of the Act or the EUA is revoked under Section 564(g) of the Act.Fact Sheet for Healthcare Prov iders:https://www.[employer]/sites/default/files/product/documents/Fact_Sheet_HC _Omukloheb_Jbuc_REMX-LqP-8.pdfFact Sheet for Healthcare Patients:https://www.[employer]/sites/default/files/product/docume nts/Zxfx_Mequt_Xzslnjdm_Ruqd_LCTP-HhR-1.pdfPerforming Laboratory:[facility].[place], [place] [address]TWX, CHEST, 1 VIEW, NON [id number] 11:54:00Reason for exam:->PRe opShould this be performed at the bedside?->YesFINAL REPORT INDICATION: PRe op COMPARISON: None TECHNIQUE: Single frontal viewof the chest. FINDINGS: Lungs and pleura: Bibasilar atelectasis No effusion.Heart and mediastinum: Normal heart size. Unremarkable mediastinal contours.Osseous structures: No acute abnormality.Other: None. Signed: Maribel Edge Verified Date/Time: 02/25/2020 11:54:47 Reading Location: [facility] Radiology Reading Room GLOBIN [id number] 10:13:00 Test Item Value Reference Range Interpretation Comments HEMOGLOBIN A1C (BEAKER) (test code = 6.2 % 4.3-6.1 H 368) COMPREHENSIVE METABOLIC [id number] 09:04:00 Test Item Value Reference Range Interpretation [...] S NOT APPLICABLE FOR DIALYSIS PATIEN TS. Rewinder Operator Helper ID - KAVIN MLIPID [id number] 06:29:00 Test Item Value Reference Range Interpretation Comments TRIGLYCERIDES (BEAKER) (test code = 123 mg/dL 540) CHOLESTEROL (BEAKER) (test code = 201 mg/dL 631) HDL CHOLESTEROL (BEAKER) (test code 31 mg/dL = 976) LDL CHOLESTEROL CALCULATED (BEAKER) 145 mg/dL (test code = 633) Triglyceride Reference Range: Low Risk <150 Borderline 150-199 High Risk 200- 499 Very High Risk >=500Cholesterol Reference Range: Low Risk <200 Borderline 200-239 High Risk >240HDL Cholesterol Reference Range: Low Risk >=60 High Risk <40LDL Cholesterol Reference Range: Optimal <100 Near Optimal 100-129 Borderline 130-159 High 160-189 Very High >=190 Rewinder Operator Helper ID - KAVIN MCBC W/PLT COUNT & AUTO [id number] 04:59:00 Test Item Value Reference Range Interpretation [...] 0-1 PERCENT (BEAKER) (test code = 2801) TSH/FREE T4 IF [id number] 16:19:00 Test Item Value Reference Range Interpretation Comments THYROID STIMULATING HORMONE 3.677 uIU/mL 0.350-4.940 (BEAKER) (test code = 772) Rewinder Operator Helper ID - EDASIVITAMIN B12 AND [id number] 16:19:00 Test Item Value Reference Range Interpretation Comments VITAMIN B12 (BEAKER) (test code = 561 pg/mL 213-816 774) FOLATE (BEAKER) (test code = 362) 10.10 ng/mL >=7.00 Rewinder Operator Helper ID - EDASITROPONIN [id number] 15:37:00 Test Item Value Reference Range Interpretation [...] failure, acidosis, acute neurological disease, and persistent tachyarrhythmia.Rewinder Operator Helper ID - EDASILIPID [id number] 15:31:00 Test Item Value Reference Range Interpretation Comments TRIGLYCERIDES (BEAKER) (test code = 164 mg/dL 540) CHOLESTEROL (BEAKER) (test code = 199 mg/dL 631) HDL CHOLESTEROL (BEAKER) (test code 30 mg/dL = 976) LDL CHOLESTEROL CALCULATED (BEAKER) 136 mg/dL (test code = 633) Triglyceride Reference Range: Low Risk <150 Borderline 150-199 High Risk 200-499 Very High Risk >=500Cholesterol Reference Range: Low Risk <200 Borderline 200-239 High Risk >240HDL Cholesterol Reference Range: Low Risk >=60 High Risk <40LDL Cholesterol Reference Range: Optimal <100 Near Optimal 100-129 Borderline 130-159 High 160-189 Very High >=190 Rewinder Operator Helper ID - EDASICOMPREHENSIVE METABOLIC [id number] 15:31:00 Test Item Value Reference Range Interpretation [...] S NOT APPLICABLE FOR DIALYSIS PATIEN TS. Rewinder Operator Helper ID - [id number]/[id number] 15:28:00 Test Item Value Reference Range Interpretation [...] is 2.5-3.5 for patients wiht mechanical heart valves.CBC W/PLT COUNT & AUTO [id number] 15:11:00 Test Item Value Reference Range Interpretation [...]
[2022-08-11] MEDS ORDERED: LORazepam 2 MG/ML VIAL ONE (05:40)
[2022-08-11] MEDS ORDERED: FUROSEMIDE 40 MG/4 ML VIAL ONE (05:40)
[2022-08-11] MEDS ORDERED: ALBUTEROL 2.5 MG/3 ML NEB SOL ONE (05:47)
[2022-08-11] MEDS ORDERED: IPRATROPIUM BROM 0.5MG/2.5ML ONE (05:47)
[2022-08-11 06:03] LABS: Arterial Blood Carboxyhemoglob 1.3 % (0-1.5); Blood Gas Oxyhemoglobin 92.4 % (94-97); Blood O2 Saturation 94.5 % (92-98.5)
[2022-08-11 06:09] LABS: Urine Blood Negative (Negative); Urine Glucose 1+ (Negative); Urine Protein 2+ (Negative); Urine pH 5.5 (5.0-7.0)
[2022-08-11 06:16] LABS: Urine Bacteria <20 /HPF (<20); Urine RBC <5 /HPF (None Seen)
[2022-08-11 06:30] LABS: Protime INR 1.18
[2022-08-11 06:35] LABS: Absolute Lymphocytes (CBC) 0.7 K/uL (0.7-4.9); Hematocrit 26.2 % (36.0-45.0); MCV 58.7 fL (80-100); MPV 8.9 fL (7.6-11.3); RBC Red Blood Cell Count 4.47 M/uL (3.86-4.86)
[2022-08-11 06:46] LABS: Albumin 3.6 g/dL (3.4-5.0); Bilirubin Direct 0.2 mg/dL (0-0.2); Bilirubin Total 0.7 mg/dL (0.2-1.0); Magnesium 2.1 mg/dL (1.6-2.4); Potassium 3.4 mmol/L (3.5-5.1); Protein, Total 7.1 g/dL (6.4-8.2)
[2022-08-11 06:48] LABS: Troponin High Sensitivity 191.5 pg/mL (<58.9)
[2022-08-11] MEDS ORDERED: AZITHROMYCIN 500 MG INJ IVPB ONE (06:55)
[2022-08-11] MEDS ORDERED: NA CHLORIDE 0.9% 1,000 ML ONE (06:55)
[2022-08-11] MEDS ORDERED: NITROGLYCERIN 1 GM PKT TD ONE (06:55)
[2022-08-11] MEDS ORDERED: CEFTRIAXONE 1000 MG/VIAL ONE (06:55)
[2022-08-11] MEDS ORDERED: NA CHLORIDE 0.9% 250 ML ONE (06:55)
[2022-08-11] MEDS ORDERED: NA CHLORIDE 0.9% 50 ML ONE (06:56)
[2022-08-11 07:06] LABS: SARS-COV-2 RT PCR NEGATIVE (NEGATIVE)
--- NOTE | 2022-08-11 07:17 | ER ---
Nurse's Notes [facility] Name: Xiomy Mendez Age: 77 yrs Sex: Female : 1945 Arrival Date: 08/11/2022 Time: 05:22 Bed 4 Private MD: Diagnosis: Dyspnea;Unspecified combined systolic (congestive) and diastolic (congestive) heart failure;Non ST elevation OR;Hypoxemia;Acidosis-mixed;Anemia, unspecified;Pneumonia due to other specified bacteria-bibasilar infiltrates;Atelectasis Presentation: 08/11 05:24 Chief complaint: EMS states: Pt has been having difficulty breathing all day today and kd3 has just gotten worse tonight so Pt called 911. Pt states that this has never happened to her before and that she doesn't have any respiratory diseases. Pt was given 2 A\T\A treatments in route and 125 of Solu Medrol with 4 of Zofran for nausea. EMS states that pt sound a little bit clearer after treatment but is still having difficulty breathing. Coronavirus screen: Vaccine status: Patient reports receiving the 2nd dose of the covid vaccine. [employer]. Ebola Screen: No symptoms or risks identified at this time. Initial Sepsis Screen: Does the patient meet any 2 criteria? RR > 20 per min. HR > 90 bpm. Yes Does the patient have a suspected source of infection? No. Patient's initial sepsis screen is negative. Risk Assessment: Do you want to hurt yourself or someone else? Patient reports no desire to harm self or others. Onset of symptoms was August 11, 2022. 05:24 Method Of Arrival: EMS: [facility] kd3 05:24 Acuity: ALFONSO 2 as6 Triage Assessment: 05:27 General: Appears uncomfortable, Behavior is cooperative, anxious. Pain: Denies pain. kd3 Respiratory: Airway is patent Trachea midline Respiratory effort is labored. Historical: - Allergies: 05:27 PENICILLINS; kd3 05:27 steroids; kd3 05:27 Sulfa (Sulfonamide Antibiotics); kd3 05:27 Aspirin; kd3 05:27 Amoxicillin; kd3 - Home Meds: 05:27 clopidogrel oral [Active]; gabapentin oral [Active]; Hydrochlorothiazide Oral [Active]; kd3 Metoprolol Tartrate Oral [Active]; Omeprazole Oral [Active]; - PMHx: 05:27 Cerebrovascular accident; Hypertensive disorder; CAD; Myocardial infarction; kd3 Hypertension; - Immunization history:: Adult Immunizations up to date, Client reports receiving the 2nd dose of the Covid vaccine. - Social history:: Smoking status: Patient/guardian denies using tobacco, but has a distant history of tobacco abuse. - Family history:: not pertinent. Screenin:39 [facility] ED Fall Risk Assessment (Adult) Score/Fall Risk Level 0 - 2 = Low Risk. Abuse as6 screen: Denies threats or abuse. Denies injuries from another. Nutritional screening: No deficits noted. Tuberculosis screening: No symptoms or risk factors identified. Assessment: 05:41 Respiratory: Respiratory effort is even, labored, Breath sounds with crackles as6 bilaterally. 05:48 General: pt placed on BiPAP by RT. as6 07:00 Reassessment: RECD REPORT FROM YOSEPH TRUJILLO. 77YO WF P/W SOB. TAYLOR IN PLACE AND DRAINING. bp 07:08 Respiratory: Respiratory effort is even, unlabored, Respiratory pattern is regular, as6 symmetrical. 09:00 Reassessment: ADMIT IN PROCESS. bp 11:16 Reassessment: REPORT TO DAISY TRUJILLO FOR RM 431. bp Vital Signs: 05:24 BP 198 / 114; Pulse 103; Resp 23; Temp 97.7(O); Pulse Ox 93% on NC; Weight 62.6 kg; kd3 Height 5 ft. 2 in. (157.48 cm); Pain 0/10; 06:00 BP 162 / 111; Pulse 100; Resp 26 S; Pulse Ox 100% on 40% BiPAP; as6 06:44 BP 143 / 71; Pulse 88; Resp 17 S; Pulse Ox 100% on 40% BiPAP; as6 07:15 BP 135 / 64; Pulse 85; Resp 17; Pulse Ox 100% ; bp 09:00 BP 145 / 80; Pulse 88; Resp 20; Pulse Ox 97% ; bp 11:00 BP 138 / 71; Pulse 96; Resp 18; Pulse Ox 98% ; bp 05:24 Body Mass Index 25.24 (62.60 kg, 157.48 cm) kd3 ED Course: 05:22 Patient arrived in ED. as6 05:24 Yoseph Ayala, RONNIE is Primary Nurse. as6 05:27 Triage completed. kd3 05:27 Arm band placed on. kd3 05:28 Initial lab(s) drawn, by me, sent to lab. First set of blood cultures drawn by me. tw5 05:37 Inserted saline lock: 20 gauge in right forearm, using aseptic technique. Blood as6 collected. Inserted saline lock: 20 gauge in left forearm, using aseptic technique. Blood collected. Maintain EMS IV. Dressing intact. Good blood return noted. Site clean \T\ dry. Gauge \T\ site: 20G L foraram. 05:38 Joaquin Rodriguez MD is Attending Physician. isabel 05:39 Placed in gown. Bed in low position. Call light in reach. Side rails up X2. Adult w/ as6 patient. Client placed on continuous cardiac and pulse oximetry monitoring. NIBP monitoring applied. Warm blanket given. 05:43 Inserted saline lock: 20 gauge in left antecubital area, using aseptic technique. Blood tw5 collected. 05:44 Troponin HS Sent. tw5 05:44 PT-INR Sent. tw5 05:44 NT PRO-BNP Sent. tw5 05:44 Magnesium Sent. tw5 05:44 LFT's Sent. tw5 05:44 CBC with Diff Sent. tw5 05:47 XRAY Chest (1 view) In Process Unspecified. EDMS 06:00 Taylor cath inserted, using sterile technique, 16 Fr., by ED staff, balloon inflated, to as6 gravity drainage, urine specimen collected. returned clear yellow urine. Patient tolerated well. 06:16 Blood Culture Adult (2) Sent. tw5 06:16 Protime (+inr) Sent. tw5 06:16 CBC with Diff Sent. tw5 06:16 Lactate w/ 2H reflex if indic. Sent. tw5 06:16 Ptt, Activated Sent. tw5 06:16 Urine Culture Sent. tw5 06:16 Troponin HS Sent. tw5 06:16 PT-INR Sent. tw5 06:16 NT PRO-BNP Sent. tw5 06:16 Magnesium Sent. tw5 06:16 LFT's Sent. tw5 06:16 CBC with Diff Sent. tw5 07:04 Primary Nurse role handed off by Yoseph Ayala RN bd 07:06 Luis A Bruno, RONNIE is Primary Nurse. bp 07:13 Gregorio Pham MD is Hospitalizing Provider. isabel 11:16 No provider procedures requiring assistance completed. Patient admitted, IV remains in bp place. Administered Medications: 05:40 Drug: Lasix (furosemide) 40 mg Route: IVP; Site: right forearm; as6 11:19 Follow up: Response: No adverse reaction bp 05:41 Drug: Ativan (LORazepam) 0.5 mg Route: IVP; Site: right forearm; as6 11:19 Follow up: Response: No adverse reaction bp 05:48 Drug: Albuterol - atroVENT (ipratropium) (3:1) (2.5 mg - 0.5 mg) 3 ml Route: Nebulizer; as6 11:19 Follow up: Response: No adverse reaction bp 06:52 Drug: Rocephin (cefTRIAXone) 1 grams Route: IV; Rate: per protocol; Site: left as6 antecubital; 11:18 Follow up: IV Status: Completed infusion; IV Intake: 100ml bp 06:52 Drug: NS 0.9% 1000 ml Route: IV; Rate: 75 ml/hr; Site: left antecubital; as6 11:18 Follow up: IV Status: Infusion continued upon admission bp 06:55 Drug: Nitro-Bid (nitroglycerin) Ointment 2 % 1 inches {Note: gave 0.5 inch.} Route: as6 Transdermal; Site: anterior chest wall; 06:55 Drug: Zithromax (azithromycin) 500 mg Route: IVPB; Infused Over: 1 hrs; Site: left as6 antecubital; 11:19 Follow up: IV Status: Completed infusion; IV Intake: 250ml bp 07:15 Drug: ProTONIX (pantoprazole) 40 mg Route: IVP; Site: left wrist; bp 11:18 Follow up: Response: No adverse reaction bp 07:15 Drug: NS 0.9% 500 ml Route: IV; Rate: bolus; Site: left wrist; bp 11:17 Follow up: IV Status: Completed infusion; IV Intake: 500ml bp Medication: 05:48 VIS not applicable for this client. as6 Point of Care Testing: Blood Glucose: 05:38 Blood Glucose: 266 mg/dL; as6 Ranges: Intake: 11:17 IV: 500ml; Total: 500ml. bp 11:18 IV: 100ml; Total: 600ml. bp 11:19 IV: 250ml; Total: 850ml. bp Output: 06:00 Urine: 200ml (Taylor); Total: 200ml. pf1 Outcome: 07:16 Decision to Hospitalize by Provider. isabel 11:16 Admitted to Med/surg accompanied by tech, family with patient, via stretcher, room 431, bp with chart, Report called to DAISY TRUJILLO 11:16 Condition: stable 11:16 Instructed on the need for admit. 12:17 Patient left the ED. bp Signatures: Dispatcher [employer] EDMS Geovanna Hendrickson Corey, MD MD cha Peltier, Brian, RN RN Esther Nj tw5 Yoseph Ayala, RN RN as6 Vianca Michael RN RN kd3 Arabella house RN RN pf1 Corrections: (The following items were deleted from the chart) 05:39 05:24 Acuity: ALFONSO 3 kd3 as6 07:55 07:00 Reassessment: RECD REPORT FROM YOSEPH TRUJILLO. 77YO WF P/W ABD PAIN. TAYLOR IN PLACE AND bp DRAINING bp
--- NOTE | 2022-08-11 07:17 | EDPHYS ---
Physician Documentation [facility] Name: Xiomy Mendez Age: 77 yrs Sex: Female : 1945 Arrival Date: 08/11/2022 Time: 05:22 Bed 4 Private MD: ED Physician Joaquin Rodriguez HPI: 08/11 07:03 This 77 yrs old Female presents to ER via EMS with complaints of dyspnea . isabel 07:03 The patient has shortness of breath at rest, with light activity. Onset: The isabel symptoms/episode began/occurred last night. Duration: The symptoms are continuous, and are steadily getting worse. The patient's shortness of breath is aggravated by coughing, exertion, light activity, supine position, is alleviated by rest, sitting up, application of supplemental oxygen. The patient presents to the emergency department with wheezing, Current therapy: None. Modifying factors: The symptoms are alleviated by nebulizer treatment, the symptoms are aggravated by talking. The patient or guardian reports airway noise, cough, that is intermittent, difficulty breathing. Historical: - Allergies: 05:27 PENICILLINS; kd3 05:27 steroids; kd3 05:27 Sulfa (Sulfonamide Antibiotics); kd3 05:27 Aspirin; kd3 05:27 Amoxicillin; kd3 - Home Meds: 05:27 clopidogrel oral [Active]; gabapentin oral [Active]; Hydrochlorothiazide Oral [Active]; kd3 Metoprolol Tartrate Oral [Active]; Omeprazole Oral [Active]; - PMHx: 05:27 Cerebrovascular accident; Hypertensive disorder; CAD; Myocardial infarction; kd3 Hypertension; - Immunization history:: Adult Immunizations up to date, Client reports receiving the 2nd dose of the Covid vaccine. - Social history:: Smoking status: Patient/guardian denies using tobacco, but has a distant history of tobacco abuse. - Family history:: not pertinent. ROS: 07:03 Constitutional: Negative for fever, chills, and weight loss, Eyes: Negative for injury, isabel pain, redness, and discharge, ENT: Negative for injury, pain, and discharge, Neck: Negative for injury, pain, and swelling, Cardiovascular: Negative for chest pain, palpitations, and edema, Abdomen/GI: Negative for abdominal pain, nausea, vomiting, diarrhea, and constipation, Back: Negative for injury and pain, : Negative for injury, bleeding, discharge, and swelling, MS/Extremity: Negative for injury and deformity, Skin: Negative for injury, rash, and discoloration, Neuro: Negative for headache, weakness, numbness, tingling, and seizure, Psych: Negative for depression, anxiety, suicide ideation, homicidal ideation, and hallucinations, Allergy/Immunology: Negative for hives, rash, and allergies, Endocrine: Negative for neck swelling, polydipsia, polyuria, polyphagia, and marked weight changes, Hematologic/Lymphatic: Negative for swollen nodes, abnormal bleeding, and unusual bruising. 07:03 Respiratory: Positive for cough, shortness of breath, at rest. Exam: 07:03 Constitutional: This is a well developed, well nourished patient who is awake, alert, isabel and in no acute distress. Head/Face: Normocephalic, atraumatic. Eyes: Pupils equal round and reactive to light, extra-ocular motions intact. Lids and lashes normal. Conjunctiva and sclera are non-icteric and not injected. Cornea within normal limits. Periorbital areas with no swelling, redness, or edema. ENT: Nares patent. No nasal discharge, no septal abnormalities noted. Tympanic membranes are normal and external auditory canals are clear. Oropharynx with no redness, swelling, or masses, exudates, or evidence of obstruction, uvula midline. Mucous membranes moist. Neck: Trachea midline, no thyromegaly or masses palpated, and no cervical lymphadenopathy. Supple, full range of motion without nuchal rigidity, or vertebral point tenderness. No Meningismus. Chest/axilla: Normal chest wall appearance and motion. Nontender with no deformity. No lesions are appreciated. Cardiovascular: Regular rate and rhythm with a normal S1 and S2. No gallops, murmurs, or rubs. Normal PMI, no JVD. No pulse deficits. Abdomen/GI: Soft, non-tender, with normal bowel sounds. No distension or tympany. No guarding or rebound. No evidence of tenderness throughout. Back: No spinal tenderness. No costovertebral tenderness. Full range of motion. Female : Normal external genitalia. MS/ Extremity: Pulses equal, no cyanosis. Neurovascular intact. Full, normal range of motion. Neuro: Awake and alert, GCS 15, oriented to person, place, time, and situation. Cranial nerves II-XII grossly intact. Motor strength 5/5 in all extremities. Sensory grossly intact. Cerebellar exam normal. Normal gait. Psych: Awake, alert, with orientation to person, place and time. Behavior, mood, and affect are within normal limits. 07:03 ECG was reviewed by the Attending Physician. 07:03 Abdomen/GI: Inspection: abdomen appears normal, Bowel sounds: normal, Palpation: abdomen is soft and non-tender, in all quadrants, Rectal exam: is unremarkable, rectal tone normal, Stool: normal, brown, hemorrhoid(s), are not appreciated, mass, is not appreciated, swelling, is not appreciated, tenderness, is not appreciated, fecal impaction, is not appreciated, Liver: no appreciated palpable abnormalities, Hernia: not appreciated. 07:03 Skin: Appearance: Color: pale. Vital Signs: 05:24 BP 198 / 114; Pulse 103; Resp 23; Temp 97.7(O); Pulse Ox 93% on NC; Weight 62.6 kg; kd3 Height 5 ft. 2 in. (157.48 cm); Pain 0/10; 06:00 BP 162 / 111; Pulse 100; Resp 26 S; Pulse Ox 100% on 40% BiPAP; as6 06:44 BP 143 / 71; Pulse 88; Resp 17 S; Pulse Ox 100% on 40% BiPAP; as6 07:15 BP 135 / 64; Pulse 85; Resp 17; Pulse Ox 100% ; bp 09:00 BP 145 / 80; Pulse 88; Resp 20; Pulse Ox 97% ; bp 11:00 BP 138 / 71; Pulse 96; Resp 18; Pulse Ox 98% ; bp 05:24 Body Mass Index 25.24 (62.60 kg, 157.48 cm) kd3 MDM: 05:39 Patient medically screened. isabel 07:11 Differential diagnosis: Anemia Anxiety Reaction asthma, Bronchitis acute asthma, isabel reactive airway, CHF, URI. Antibiotic administration: Rocephin and Zithromax given. Immunization status: Pneumococcal vaccine: within last 5 years. Influenza vaccine: Data reviewed: vital signs, nurses notes, lab test result(s), EKG, radiologic studies, plain films. Consideration of Admission/Observation Patient was admitted/placed on observation. Escalation of care including admission/observation considered. I considered the following discharge prescriptions or medication management in the emergency department Medications were administered in the Emergency Department. See MAR. Test considered but Not performed: CT: ct chest. Historians other than the Patient: EMS: ems crew. 08/11 05:23 Order name: CBC with Diff as6 08/11 05:23 Order name: LFT's; Complete Time: 06:56 as6 08/11 05:23 Order name: Magnesium; Complete Time: 06:56 as6 08/11 05:23 Order name: NT PRO-BNP; Complete Time: 06:56 as6 08/11 05:23 Order name: PT-INR; Complete Time: 06:37 as6 08/11 05:23 Order name: Troponin HS; Complete Time: 06:56 as6 08/11 05:23 Order name: Blood Culture Adult (2) as08/11 05:23 Order name: CBC with Diff as6 08/11 05:23 Order name: CMP; Complete Time: 06:56 as6 08/11 05:23 Order name: Lactate w/ 2H reflex if indic.; Complete Time: 06:56 as6 08/11 05:23 Order name: Protime (+inr) as6 08/11 05:23 Order name: Ptt, Activated; Complete Time: 06:37 as6 08/11 05:23 Order name: Urine Culture as08/11 05:23 Order name: Urine Microscopic Only; Complete Time: 06:37 as6 08/11 05:34 Order name: ABG; Complete Time: 06:37 mw2 08/11 05:34 Order name: COVID-19/FLU A+B mw2 08/11 05:50 Order name: Glucose, Ancillary Testing; Complete Time: 06:37 EDMS 08/11 06:09 Order name: Urine Dipstick-Ancillary; Complete Time: 06:37 EDMS 08/11 06:40 Order name: CBC Smear Scan EDMS 08/11 06:57 Order name: Type And Screen [facility] 08/11 08:40 Order name: Antibody Identification EDNC 08/11 09:11 Order name: Sendout Antibody ID EDNC 08/11 09:49 Order name: ABO/RH no charge EDNC 08/11 10:53 Order name: CBC with Automated Diff EDMS 08/11 10:53 Order name: CBC with Automated Diff EDMS 08/11 10:53 Order name: Comprehensive Metabolic Panel EDNC 08/11 10:53 Order name: Comprehensive Metabolic Panel EDMS 08/11 10:53 Order name: Protime (+INR) EDMS 08/11 10:53 Order name: Protime (+INR) EDMS 08/11 05:23 Order name: XRAY Chest (1 view) 08/11 05:23 Order name: EKG; Complete Time: 05:24 08/11 05:23 Order name: Cardiac monitoring; Complete Time: 05:37 08/11 05:23 Order name: EKG - Nurse/Tech; Complete Time: 05:37 08/11 05:23 Order name: IV Saline Lock; Complete Time: 05:37 08/11 05:23 Order name: Labs collected and sent; Complete Time: 05:37 08/11 05:23 Order name: O2 Per Protocol; Complete Time: 05:37 08/11 05:23 Order name: O2 Sat Monitoring; Complete Time: 05:37 08/11 05:23 Order name: EKG; Complete Time: 05:24 08/11 05:23 Order name: Accucheck; Complete Time: 05:38 08/11 05:23 Order name: Cardiac monitoring; Complete Time: 05:37 08/11 05:23 Order name: Cath; Complete Time: 06:00 08/11 05:23 Order name: EKG - Nurse/Tech; Complete Time: 05:31 08/11 05:23 Order name: IV Saline Lock - Large Bore; Complete Time: 05:37 08/11 05:23 Order name: Labs collected and sent; Complete Time: 05:37 08/11 05:23 Order name: O2 Per Protocol; Complete Time: 05:37 08/11 05:23 Order name: O2 Sat Monitoring; Complete Time: 05:37 08/11 05:23 Order name: Urine Dipstick-Ancillary (obtain specimen); Complete Time: 06:07 08/11 05:24 Order name: BIPAP 08/11 10:53 Order name: CONS Physician Consult EDMS 08/11 10:53 Order name: Heart Healthy EDMS 08/11 10:53 Order name: PTT, Activated Partial Thromb EDMS 08/11 10:53 Order name: PTT, Activated Partial Thromb EDMS 08/11 05:23 Order name: Vital Signs; Complete Time: 05:37 EC:03 Rate is 95 beats/min. Rhythm is regular. QRS [place] is Normal. PA interval is normal. QRS isabel interval is normal. QT interval is normal. No Q waves. T waves are Normal. No ST changes noted. Clinical impression: NSR w/ Non-specific ST/T Changes and No evidence of ischemia. Interpreted by me. Reviewed by me. Administered Medications: 05:40 Drug: Lasix (furosemide) 40 mg Route: IVP; Site: right forearm; as6 11:19 Follow up: Response: No adverse reaction bp 05:41 Drug: Ativan (LORazepam) 0.5 mg Route: IVP; Site: right forearm; as6 11:19 Follow up: Response: No adverse reaction bp 05:48 Drug: Albuterol - atroVENT (ipratropium) (3:1) (2.5 mg - 0.5 mg) 3 ml Route: Nebulizer; as6 11:19 Follow up: Response: No adverse reaction bp 06:52 Drug: Rocephin (cefTRIAXone) 1 grams Route: IV; Rate: per protocol; Site: left as6 antecubital; 11:18 Follow up: IV Status: Completed infusion; IV Intake: 100ml bp 06:52 Drug: NS 0.9% 1000 ml Route: IV; Rate: 75 ml/hr; Site: left antecubital; as6 11:18 Follow up: IV Status: Infusion continued upon admission bp 06:55 Drug: Nitro-Bid (nitroglycerin) Ointment 2 % 1 inches {Note: gave 0.5 inch.} Route: as6 Transdermal; Site: anterior chest wall; 06:55 Drug: Zithromax (azithromycin) 500 mg Route: IVPB; Infused Over: 1 hrs; Site: left as6 antecubital; 11:19 Follow up: IV Status: Completed infusion; IV Intake: 250ml bp 07:15 Drug: ProTONIX (pantoprazole) 40 mg Route: IVP; Site: left wrist; bp 11:18 Follow up: Response: No adverse reaction bp 07:15 Drug: NS 0.9% 500 ml Route: IV; Rate: bolus; Site: left wrist; bp 11:17 Follow up: IV Status: Completed infusion; IV Intake: 500ml bp Point of Care Testing: Blood Glucose: 05:38 Blood Glucose: 266 mg/dL; as6 Ranges: Critical Glucose Levels:Adult <50 mg/dl or >400 mg/dl <40 mg/dl or >180 mg/dl Disposition: 07:45 Critical Care:. isabel Disposition Summary: 08/11/22 07:16 Hospitalization Ordered Hospitalization Status: Inpatient Admission isabel Provider: Gregorio Pham cha [facility] isabel Condition: Stable isabel Problem: new isabel Symptoms: have improved isabel Bed/Room Type: Standard isabel Room Assignment: 431(08/11/22 10:58) bd Diagnosis - Dyspnea isabel - Unspecified combined systolic (congestive) and diastolic (congestive) heart failure isabel - Non ST elevation MS isabel - Hypoxemia isabel - Acidosis - mixed isabel - Anemia, unspecified isabel - Pneumonia due to other specified bacteria - bibasilar infiltrates isabel - Atelectasis isabel Forms: - Medication Reconciliation Form isabel - SBAR form isabel Critical care time excluding procedures: 07:45 Critical care time: Bedside Care: 20 minutes, Consultation: 10 minutes, Family isabel Intervention: 5 minutes. Total time: 35 minutes Signatures: Dispatcher [employer] EDMS Geovanna Hendrickson Corey, MD MD cha Peltier, Brian, RN RN bp Yoseph Ayala, RONNIE RN as6 Vianca Michael RN RN kd3 Corrections: (The following items were deleted from the chart) 05:25 05:24 BASIC METABOLIC PANEL+C.LAB.BRZ ordered. EDMS EDMS 10:58 07:16 isabel bd
[2022-08-11] MEDS ORDERED: PANTOPRAZOLE 40 MG INJ ONE (07:25)
[2022-08-11] MEDS ORDERED: NA CHLORIDE 0.9% 500 ML ONE (07:25)
[2022-08-11 07:35] LABS: Anisocytosis 3+; Blood Morphology Comment NOTED (NOT SEEN); Burr Cells 1+; Hypochromasia 3+; Ovalocytes 1+; Platelet Estimate INCR; Platelets, Giant 1+; Poikilocytosis 2+; Target Cells FEW; White Blood Cell Scan OK (OK)
--- NOTE | 2022-08-11 10:13 | RAD REPORT ---
EXAM DESCRIPTION: RAD - Chest Single View - 08/11/2022 5:45 am CLINICAL HISTORY: The patient is 77 years old and is Female; CHEST PAIN TECHNIQUE: Single view of the chest. COMPARISON: No relevant prior studies available. FINDINGS: Lungs: Bibasilar infiltrates and/or atelectasis, right greater than left. No pulmonary vascular congestion. Pleural space: Unremarkable. No pneumothorax. Heart: The cardiac silhouette is enlarged versus artifact of AP technique. Mediastinum: Unremarkable. Bones/joints: No acute fracture visualized. Upper abdomen: No free air in the visualized upper abdomen. IMPRESSION: Bibasilar infiltrates and/or atelectasis, right greater than left. Electronically signed by: Viviana Wright MD 08/11/2022 5:52 AM DIRECTOR OF MARKETING OPERATIONS Due to temporary technical issues with the PACS/Fluency reporting system, reports are being signed by the in house radiologists without review as a courtesy to insure prompt reporting. The interpreting radiologist is fully responsible for the content of the report.
[2022-08-11] MEDS ORDERED: ONDANSETRON 4 MG/2 ML VIAL IV PRN (10:47)
[2022-08-11] MEDS ORDERED: ACETAMINOPHEN 500 MG TAB PO PRN (10:47)
[2022-08-11] MEDS ORDERED: MORPHINE 2 MG/ML SYR IV PRN (10:47)
[2022-08-11] MEDS: NA CHLORIDE 0.9% 1,000 ML IV SCH ×2 (12:59→20:42)
[2022-08-11 13:01] VITALS: BMI 26.9
[2022-08-11] MEDS: IPRATROPIUM BROM 0.5MG/2.5ML NEB SCH ×2 (14:11→19:30)
[2022-08-11] MEDS: ALBUTEROL 2.5 MG/3 ML NEB SOL NEB SCH ×3 (14:11→19:35)
[2022-08-12] MEDS: IPRATROPIUM BROM 0.5MG/2.5ML NEB SCH ×4 (02:00→20:10)
[2022-08-12] MEDS: ALBUTEROL 2.5 MG/3 ML NEB SOL NEB SCH ×4 (02:00→20:10)
[2022-08-12 04:53] LABS: Absolute Lymphocytes (CBC) 1.2 K/uL (0.7-4.9); Hematocrit 21.7 % (36.0-45.0); Lymphocytes % 12.4 % (15.3-44.8); MPV 8.5 fL (7.6-11.3); RBC Red Blood Cell Count 3.76 M/uL (3.86-4.86)
[2022-08-12 04:57] LABS: MCV 57.8 fL (80-100); Protime INR 1.19
[2022-08-12 05:09] LABS: Albumin 3.2 g/dL (3.4-5.0); Bilirubin Total 0.5 mg/dL (0.2-1.0); Potassium 3.8 mmol/L (3.5-5.1); Protein, Total 6.1 g/dL (6.4-8.2)
--- NOTE | 2022-08-12 07:58 | EKG ---
Test Date: 2022-08-11 Test Time: 05:29:47 Spoon Maker: ROMELIA MEASUREMENT RESULTS: Intervals: Rate: 95 WV: 180 QRSD: 72 QT: 382 QTc: 480 [place]: P: 40 WV: 180 QRS: 41 T: 70 INTERPRETIVE STATEMENTS: Normal sinus rhythm Possible Left atrial enlargement Cannot rule out Anterior infarct, age undetermined Abnormal ECG Compared to ECG 02/24/2020 06:34:51 Myocardial infarct finding now present ST (T wave) deviation no longer present Electronically Signed On 08-12-22 07:55:00 SENIOR WINDOWS ENGINEER by Lopez Castellanos
[2022-08-12] MEDS ORDERED: NA CHLORIDE 0.9% 250 ML ONE (11:23)
[2022-08-12] MEDS: NA CHLORIDE 0.9% 1,000 ML IV SCH (11:45)
[2022-08-12] MEDS ORDERED: FUROSEMIDE 40 MG/4 ML VIAL IV ONE (17:28)
[2022-08-12] MEDS ORDERED: NA CHLORIDE 0.9% 100 ML ONE (18:26)
[2022-08-13] LABS: Absolute Lymphocytes (CBC) 1.6 K/uL (0.7-4.9); Hematocrit 33.7 % (36.0-45.0); Lymphocytes % 13.4 % (15.3-44.8); MCV 65.1 fL (80-100); MPV 9.2 fL (7.6-11.3); RBC Red Blood Cell Count 5.18 M/uL (3.86-4.86)
[2022-08-13] MEDS: LABETALOL 20 MG/4ML SYRINGE IV PRN ×2 (01:19→14:54)
[2022-08-13] MEDS: ENOXAPARIN 60 MG/0.6 ML SQ SCH ×2 (01:19→09:22)
[2022-08-13] MEDS: IPRATROPIUM BROM 0.5MG/2.5ML NEB SCH ×4 (01:25→19:45)
[2022-08-13] MEDS: ALBUTEROL 2.5 MG/3 ML NEB SOL NEB SCH ×4 (01:25→19:45)
[2022-08-13 06:48] LABS: Absolute Lymphocytes (CBC) 1.5 K/uL (0.7-4.9); Hematocrit 32.6 % (36.0-45.0); Lymphocytes % 14.6 % (15.3-44.8); MCV 65.3 fL (80-100); MPV 8.7 fL (7.6-11.3)
[2022-08-13 07:24] LABS: Albumin 3.6 g/dL (3.4-5.0); Bilirubin Total 0.8 mg/dL (0.2-1.0); Potassium 3.2 mmol/L (3.5-5.1); Protein, Total 6.6 g/dL (6.4-8.2)
[2022-08-13 07:26] LABS: Troponin High Sensitivity 476.1 pg/mL (<58.9)
--- NOTE | 2022-08-13 11:16 | P.HP ---
Certification for Inpatient Patient admitted to: Inpatient With expected LOS: >2 Midnights Patient will require the following post-hospital care: None Practitioner: I am a practitioner with admitting privileges, knowledge of patient current condition, hospital course, and medical plan of care. Services: Services provided to patient in accordance with Admission requirements found in Title 42 Section 412.3 of the Code of Federal Regulations Patient History Date of Service: 08/11/22 Reason for admission: Shortness of breath History of Present Illness: Patient is a 77-year-old female who comes to the hospital with difficulty breathing. She was also found to be anemic. She denies any acute blood loss. He had she is got a history of COPD and we started her on nebs, steroids, and antibiotics. Clinically she appears to be doing better. Her hemoglobin is on the low side and we will repeat her hemoglobin. We will make sure this is stable. She also has elevated troponins and will check serial troponin levels. Cardiology consult has been placed. No signs of active bleeding so no intervention at this time. She will be admitted to the hospital for further work-up. Allergies Penicillins Allergy (Verified 12/07/11 10:40) Anaphylaxis Androgenic Anabolic Steroid Adverse Reaction (Verified 12/07/11 10:40) ams Jjwchnr-CYQ-IwZ Reductase Inhibitor [Hinoyam-Hqi-Zjw Reductase Inhibitor] Adverse Reaction (Verified 03/20/20 12:00) Muscular Pain/Weakness Home Medications: Dorzolamide HCl/Timolol Maleat [Cosopt Eye Drops] 1 drop EACHEYE BID 12/07/11 Latanoprost [Xalatan] 1 drop EACH EYE BEDTIME 12/07/11 Metoprolol Tartrate [Lopressor*] 25 mg PO BID #0 tab 12/09/11 Aspirin 81 mg PO DAILY 03/04/20 Clopidogrel Bisulfate [Plavix*] 75 mg PO DAILY 08/11/22 Omeprazole 20 mg PO DAILY 08/11/22 Vitamin E 400 units PO M,W,F 08/11/22 hydroCHLOROthiazide [Hydrochlorothiazide] 25 mg PO DAILY 08/11/22 - Past Medical/Surgical History Has patient received pneumonia vaccine in the past: Yes Diabetic: No -: CAD -: CVA -: HTN -: Glaucoma -: Coronary artery stent placement -: IN -: Peripheral artery disease -: Prediabetes -: Amputation bilateral toes -: Appendectomy - Family History Father Medical History: Diabetes, Stroke Mother Medical History: Heart disease - Social History Smoking Status: Former smoker Alcohol use: Yes CD- Drugs: No Caffeine use: Yes Place of Residence: Home Review of Systems 10-point ROS is otherwise unremarkable Physical Examination - Vital Signs Temperature: 97.6 F Blood Pressure: 175/84 Pulse: 88 Respirations: 18 Pulse Ox (%): 99 - Physical Exam General: Alert, In no apparent distress, Oriented x3 HEENT: Atraumatic, PERRLA, Mucous membr. moist/pink, EOMI, Sclerae nonicteric Neck: Supple, 2+ carotid pulse no bruit, No LAD, Without JVD or thyroid abnormality Respiratory: Diminished, Expiratory wheezes Cardiovascular: Regular rate/rhythm, Normal S1 S2, No murmurs Gastrointestinal: Normal bowel sounds, Soft and benign, Non-distended, No tenderness Musculoskeletal: No clubbing, No swelling, No tenderness Integumentary: No rashes Neurological: Normal gait, Normal speech, Normal strength at 5/5 x4 extr, Normal tone, Sensation intact, Cranial nerves 3-12 intact, Normal affect Lymphatics: No axilla or inguinal lymphadenopathy - Studies Microbiology Data (last 24 hrs): 08/11/22 06:00 Catheterized Urine [place] Count - Final No growth. 08/11/22 06:00 Catheterized Urine - Final No growth. Assessment & Plan - Problems (Diagnosis) (1) COPD with acute exacerbation Current Visit: Yes Status: Acute (2) Anemia associated with acute blood loss Current Visit: Yes Status: Acute (3) Elevated troponin Current Visit: Yes Status: Acute (4) History of CAD (coronary artery disease) Current Visit: Yes Status: Acute (5) History of CVA (cerebrovascular accident) Current Visit: Yes Status: Acute - Plan Plan: 1. Continue with albuterol and Atrovent nebs 2. Continue with IV steroids 3. Monitor troponin and cardiology consultation 4. Pulmonary follow-up if symptoms do not improve 5. Room air O2 sats 6. Repeat chest x-ray in the morning 7. Check serial H&H; outpatient gastroenterology work-up. Also do anemia work- up in house 8. GI and DVT prophylaxis Discharge Plan: Home Plan to discharge in: Greater than 2 days - Advance Directives Does patient have a Living Will: No Does patient have a Durable POA for Healthcare: No - Code Status/Comfort Care Code Status Assessed: Yes Code Status: Full Code Critical Care: No Time Spent Managing PTS Care (In Minutes): 35
--- NOTE | 2022-08-13 11:17 | P.PN ---
Subjective Date of Service: 08/12/22 Subjective: No new changes, No C/O voiced, Improving Review of Systems 10-point ROS is otherwise unremarkable Physical Examination - Vital Signs Temperature: 97.6 F Blood Pressure: 175/84 Pulse: 88 Respirations: 18 Pulse Ox (%): 99 - Physical Exam General: Alert, In no apparent distress HEENT: Atraumatic, PERRLA, EOMI Neck: Supple, JVD not distended Respiratory: Clear to auscultation bilaterally, Normal air movement Cardiovascular: Regular rate/rhythm, Normal S1 S2 Gastrointestinal: Normal bowel sounds, No tenderness Musculoskeletal: No tenderness Integumentary: No rashes Neurological: Normal speech, Normal tone, Normal affect Lymphatics: No axilla or inguinal lymphadenopathy - Studies Microbiology Data (last 24 hrs): 08/11/22 06:00 Catheterized Urine [place] Count - Final No growth. 08/11/22 06:00 Catheterized Urine - Final No growth. Medications List Reviewed: Yes Assessment & Plan - Problems (Diagnosis) (1) COPD with acute exacerbation Current Visit: Yes Status: Acute (2) Anemia associated with acute blood loss Current Visit: Yes Status: Acute (3) Elevated troponin Current Visit: Yes Status: Acute (4) History of CAD (coronary artery disease) Current Visit: Yes Status: Acute (5) History of CVA (cerebrovascular accident) Current Visit: Yes Status: Acute - Plan Plan: Continue with current plan of care as mentioned below: 1. Continue with albuterol and Atrovent nebs 2. Continue with IV steroids 3. Monitor troponin and cardiology consultation 4. Pulmonary follow-up if symptoms do not improve 5. Room air O2 sats 6. Repeat chest x-ray in the morning 7. Check serial H&H; outpatient gastroenterology work-up. Also do anemia work- up in house 8. GI and DVT prophylaxis Discharge Plan: Home Plan to discharge in: Greater than 2 days - Advance Directives Does patient have a Living Will: No Does patient have a Durable POA for Healthcare: No - Code Status/Comfort Care Code Status: Full Code Critical Care: No Time Spent Managing PTS Care (In Minutes): 35
[2022-08-13] MEDS: SOD FERRIC GLUC COMPLX/SUCROSE 125 MG in NA CHLORIDE 0.9% 100 ML IV SCH (12:06)
[2022-08-13] MEDS: NA CHLORIDE 0.9% 1,000 ML IV SCH (14:21)
[2022-08-13] MEDS ORDERED: FUROSEMIDE 40 MG/4 ML VIAL IV ONE (16:44)
[2022-08-13] MEDS ORDERED: MUCINEX DM 12HR.SR TAB PO PRN (19:45)
[2022-08-13] MEDS: METOPROLOL TAR 25 MG TAB PO SCH (20:03)
[2022-08-13] MEDS ORDERED: LATANOPROST OPTH SCH (21:00)
--- NOTE | 2022-08-14 00:09 | P.PN ---
Date of Service: 08/13/22 Subjective PATIENT IS FEELING BETTER. RESPIRATORY STATUS HAS IMPROVED. HEMOGLOBIN IS STABLE. PATIENT WANTS TO FOLLOW-UP WITH HER COMMERCIAL LAWN SPECIALIST FOR CARDIAC CATHETERIZATION. DENIES ANY CHEST PAIN AND HER SHORTNESS OF BREATH IS IMPROVED. Review of Systems 10-point ROS is otherwise unremarkable Physical Examination - Vital Signs REVIEWED - Physical Exam General: Alert, In no apparent distress Respiratory: Clear to auscultation bilaterally, Normal air movement Cardiovascular: Regular rate/rhythm, Normal S1 S2 Gastrointestinal: Normal bowel sounds, No tenderness Neurological: Normal speech, Normal tone, Normal affect Assessment & Plan - Problems (Diagnosis) (1) COPD with acute exacerbation Current Visit: Yes Status: Acute (2) Anemia associated with acute blood loss Current Visit: Yes Status: Acute (3) Elevated troponin Current Visit: Yes Status: Acute (4) History of CAD (coronary artery disease) Current Visit: Yes Status: Acute (5) History of CVA (cerebrovascular accident) Current Visit: Yes Status: Acute - Plan Continue with current plan of care as mentioned below: 1. Continue with albuterol and Atrovent nebs 2. Continue with IV steroids and continue with IV Lasix 3. Monitor troponin and cardiology consultation appreciated; patient to get cardiac intervention as an outpatient 4. Pulmonary follow-up if symptoms do not improve 5. Room air O2 sats 6. Repeat chest x-ray in the morning 7. Check serial H&H; outpatient gastroenterology work-up. Also do anemia work- up in house 8. GI and DVT prophylaxis
[2022-08-14] MEDS: ALBUTEROL 2.5 MG/3 ML NEB SOL NEB SCH ×3 (01:45→13:18)
[2022-08-14] MEDS: IPRATROPIUM BROM 0.5MG/2.5ML NEB SCH ×3 (01:45→13:18)
[2022-08-14] MEDS ORDERED: PANTOPRAZOLE 40MG TABLET PO SCH (06:30)
[2022-08-14 07:10] LABS: Absolute Lymphocytes (CBC) 1.4 K/uL (0.7-4.9); Hematocrit 34.1 % (36.0-45.0); Lymphocytes % 14.9 % (15.3-44.8); MCV 65.9 fL (80-100); MPV 8.7 fL (7.6-11.3); RBC Red Blood Cell Count 5.17 M/uL (3.86-4.86)
[2022-08-14 07:33] LABS: Magnesium 1.9 mg/dL (1.6-2.4)
[2022-08-14 07:35] LABS: Potassium 2.9 mmol/L (3.5-5.1)
[2022-08-14] MEDS: METOPROLOL TAR 25 MG TAB PO SCH (08:58)
[2022-08-14] MEDS: SOD FERRIC GLUC COMPLX/SUCROSE 125 MG in NA CHLORIDE 0.9% 100 ML IV SCH (08:59)
[2022-08-14] MEDS ORDERED: hydroCHLOROthiazide 25 MG TAB PO SCH (09:00)
[2022-08-14] MEDS ORDERED: POTASSIUM 25 MEQ EFFERV TAB PO ONE (09:00)
--- NOTE | 2022-08-14 09:35 | RAD REPORT ---
EXAM DESCRIPTION: RAD - Chest Single View - 08/14/2022 9:25 am CLINICAL HISTORY: pneumonia COMPARISON: Chest Single View dated 08/12/2022; Chest Single View dated 03/25/2022; Chest Single View d ated 02/08/2022; Chest Single View dated 2Chest Single View dated 08/11/2022; Chest Single View da maribel 02/24/2020; CHEST SINGLE VIEW dated 12/07/2011 FINDINGS: Lines: None. Lungs: Basilar airspace disease bilaterally. Pleural: Possible small pleural effusions. Cardiac: Similar cardiomegaly. Mediastinum: Within normal limits. Bones: No acute fractures. Other: None IMPRESSION: Basilar airspace disease and possible small effusions grossly similar to 08/11/2022. Fin dings could represent edema and/or pneumonia.
[2022-08-14 09:48] LABS: Anisocytosis 3+; Blood Morphology Comment NOTED (NOT SEEN); Hypochromasia 1+; Platelet Estimate ADEQ; Polychromasia 1+; White Blood Cell Scan OK (OK)
[2022-08-14 09:49] LABS: Ovalocytes 1+
[2022-08-14 16:02] VITALS: O2SAT 97
[2022-08-14 16:56] VITALS: BP 158/79; TEMP 98
== END 2022-08-14 17:47 | disposition home or self-care (01) | DRG 193 ==
LOC: ER 05:20 → ERHOLD 10:47 → 4TH 11:17
PROVIDERS: ADMIT Hospitalist; ATTEND Hospitalist
PROC: 5A09357 Assistance with Respiratory Ventilation, Less than 24 Consecutive Hours, Continuous Positive Airway Pressure (ICD-10-PCS; principal; 2022-08-11)
DX: J18.9 Pneumonia, unspecified organism (principal); I50.43 Acute on chronic combined systolic (congestive) and diastolic (congestive) heart failure; E87.4 Mixed disorder of acid-base balance; J44.0 Chronic obstructive pulmonary disease with (acute) lower respiratory infection; J44.1 Chronic obstructive pulmonary disease with (acute) exacerbation; D62 Acute posthemorrhagic anemia; I11.0 Hypertensive heart disease with heart failure; I25.10 Atherosclerotic heart disease of native coronary artery without angina pectoris; I25.2 Old myocardial infarction; R77.8 Other specified abnormalities of plasma proteins; Z88.0 Allergy status to penicillin; Z88.1 Allergy status to other antibiotic agents; Z88.6 Allergy status to analgesic agent; Z95.5 Presence of coronary angioplasty implant and graft; Z88.8 Allergy status to other drugs, medicaments and biological substances; Z79.01 Long term (current) use of anticoagulants; Z79.82 Long term (current) use of aspirin; Z79.02 Long term (current) use of antithrombotics/antiplatelets; Z86.73 Personal history of transient ischemic attack (TIA), and cerebral infarction without residual deficits; Z90.49 Acquired absence of other specified parts of digestive tract; Z89.422 Acquired absence of other left toe(s); Z89.421 Acquired absence of other right toe(s); Z79.899 Other long term (current) drug therapy; Z87.891 Personal history of nicotine dependence; Z20.822 Contact with and (suspected) exposure to COVID-19
CPT/HCPCS: 0240U; 36415; 51702; 71045; 80048; 80053; 80076; 81003; 81015; 82607; 82747; 82805; 82947; 83036; 83540; 83605; 83735; 83880; 84132; 84484; 85025; 85044; 85610; 85730; 86850; 86860; 86870; 86880; 86900; 86901; 86902; 86905; 86922; 86970; 87040; 87086; 87088; 93005; 94640; 94660; 99285; C9113; J0456; J1650; J1940; J2916; J7030; J7040; J7050; J7613; J7644; P9016

== ENCOUNTER 2023-02-12 10:11 | Emergency (ER) | payer OTHER ==
--- OUTSIDE RECORDS SUMMARY | 2023-02-12 10:25 | XMS REPORT | Continuity of Care Document ---
:[address] [facility] [place], [place] t Address [address] [facility] [address] [place] [address] Care Team Providers Name Role Phone VIMAL LANCASTER Primary Care Physician Unavailable BRADY HEAD Attending Clinician Unavailable Hakan BRIGGS, Sendil K.H. Attending Clinician DESTINY LOUIS Attending Clinician Unavailable TIFFANIE CABRALES Attending Clinician Unavailable HAKAN SENDTODD K.H. Attending Clinician Unavailable Vimal Lancaster MD Attending Clinician Lab, Ang - Db Attending Clinician Unavailable VIMAL LANCASTER Attending Clinician Unavailable WALTER BIRD Attending Clinician Unavailable Doctor Unassigned, [place] Attending Clinician Unavailable Vaccine, Ang Db Cbc Fam Attending Clinician Unavailable Brady Head MD Attending Clinician Walter Bird MD Attending Clinician LEWIS MARTINEZ Attending Clinician Unavailable Nurse, Adc Pob Immunization Attending Clinician Unavailable Lewis Martinez DO Attending Clinician Page Arevalo MD Attending Clinician Adeline Cervantes PA-C Attending Clinician ADELINE CERVANTES Attending Clinician Unavailable April Chacon RN Attending Clinician Unavailable Tariq Payne MD Attending Clinician Noelle Yee MD Attending Clinician [phone] NOELLE YEE Attending Clinician Unavailable Ping BLOCKER AND CUTTER CONTACT LENS, Arabella Rodriguez Attending Clinician ARABELLA JACKSON Attending Clinician Unavailable OMA HEWITT Attending Clinician Unavailable Truman DIRECT MARKETING COORDINATOR, Oma Attending Clinician Provider, [facility] Attending Clinician Unavailable PAGE AREVALO Attending Clinician Unavailable FEDE PALOMINO Attending Clinician Unavailable Candelario BRIGGS, Fede Brown Attending Clinician Leonila TUBBS, Laura Attending Clinician Jian BRIGGS, Ayad Attending Clinician Karina, Remote Device Check At Home - Attending Clinician Unava AYAD Fowler Attending Clinician Unavailable Ochoa BRIGGS, John Cr Attending Clinician Manuela TRUJILLO, Kim Attending Clinician Unavailable Vicky Perez MD Attending Clinician JERE PATRICIA Attending Clinician Unavailable Pob, Adc Lab Main Attending Clinician Unavailable Pacemaker/Icd, Adc Attending Clinician Unavailable Theo BRIGGS, Sloane Attending Clinician Rizwan FIELD TEST ENGINEER, Jeannette L Attending Clinician Vimal Mccall MD [...] Unavailable Michael BRIGGS, Noelle Smith Admitting Clinician [phone] NOELLE YEE Admitting Clinician Unavailable AYAD VILLAR Admitting Clinician Unavailable GAYLE, UMAR Admitting Clinician Unavailable Payers Payer Name Policy Type Policy Number Effective Date Expiration Date Ivana VASQUEZ/GAEL [id number] 2021 MEDICARE ADVANTAGE 00:00:00 [employer] MEDICARE HMO [id number] POS Problems Condition Condition Condition Status Onset Resolution [...] Added automatic ally from request for surgery [id number] Bilateral Bilateral Disease Active Uni vers carotid [...] of History of Disease Active U [place] 1[place] ity of (myocardia (myocardia 00:00: Te [...] Branch Cerebrovas Cerebrovas Disease Active 2019-07 U yoselin cular cular 0-08 ity of accident accident 00:00: [place] (CVA), (CVA), 00 Medical unspecifie unspecifie Br anch d d mechanism [facility] Disease Active 2019-07 Unive rs discharge discharge 0-08 [place] follow[place] Thoracic Thoracic Disease Recurre Overview: [facility] 02[facility] atherosc[facility] atheroscle [facility]: g [...] g thoracic aorta . CVA CVA Disease Recurre Overview: [facility]ce[facility] vascular vascular 00:00: g of this Med ical accident) accident) 00 note Cent er might be different from the original. MRI 02/25/20: Right parieto-o ccipital stroke Left Left Disease Recurre Overview: [facility] hemiparesi [facility]aresi [facility] 00:[facility]: g of this Medical 00 note Center might be different from the original. 2/2 right sided stroke CAD CAD Disease Active [facility] (coronary (coronary 02-26 [facility] artery artery 00:00: Medical disease) disease) 00 Center History of History of Disease Active [facility] [place] [facility] (myocardia (myocardia 00:00: Me dical l l 00 Center infarction infarction ) ) History of History of Disease Active [facility] coronary coronary 02-26 [facility] artery artery 00:00: Medical stent stent 00 Center placement placement Essential Essential Disease Active [facility] hypertensi hypertensi 02-26 Roseline kes on on 00:00: Medical 00 Center Hyperlipid Hyperlipid Disease Active U yoselin emia, emia, 1-14 ity of unspecifie unspecifie [place] Medical hyperlipid hyperlipid Br anch emia type emia type 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 [facility]elin neuralgia neuralgia 0-22 ity of 00:00: [place] 00 Medical Branch Vestibular Vestibular Disease Active 2018-07 U nivers active active 0-22 ity of [...] annual 0-22 ity of wellness wellness 00:00: [place] visit, visit, 00 Medical subsequent subsequent Br anch Senile Senile Disease Active 2018-07 Univers osteoporos osteoporos 0-22 it y of is is 00:00: [place] 00 Medical Branch Need for Need for Disease Active 2018-07 Unive rs Tdap Tdap 0-22 ity of vaccinatio vaccinatio [place] Dyslipidem Dyslipidem Disease Active U yoselin ia ia 5-23 ity of 00:00: [place] 00 Medical Branch Essential Essential Disease Active Uni vers hypertensi hypertensi 1-11 it y of on on 00:00: [place] [facility] Coronary Coronary Disease Active Unive rs artery artery 1-11 ity of disease disease 00:00: [place] 00 Medical Branch Peripheral Peripheral Disease Active U yoselin vascular vascular 1-11 ity of disease disease 00:00: [place] [facility] Glaucoma Glaucoma Disease Active Unive rs of both of both 1-11 ity of eyes eyes 00:00: [place] 00 Medical Branch Prediabete Prediabete Disease Active [facility] Allergies, Adverse Reactions, Alerts Allergy Allergy Status Severity Reaction(s) Onset Inactive Treating Comm ents Source Name Type Date Date Clinician Amoxicil Drug Active Rash Heat rash Unive rs barry Allergy 7-07 when ity of 00:00: taken [place] 00 Medical Branch AMOXICIL DRUG Active Rash 2021-0 Univers BARRY INGREDI 01-07 ity of 00:00: [place] 00 Medical Branch Evolocum Propensi Active Rash Univer s ab ty to 1-13 ity of adverse 00:00: [place] reaction 00 Medical s Branch EVOLOCUM DRUG Active Rash 0 Univers AB INGREDI 1-13 ity of 00:00: [place] 00 Medical Branch Aspirin Propensi Active Nausea 2020-0 Univers ty to and/or 10-07 ity of adverse Vomiting 00:00: [place] reaction 00 Medical s Branch ASPIRIN DRUG Active N/V 2020-0 Univers INGREDI 4- ity of 00:00: [place] 00 Medical Branch Corticos Propensi Active Other (See 0 "it [facility] teroids ty to Comments) 8-23 caused me Alex es (Glucoco adverse 00:00: to have Medica l rticoids reaction 00 glaucoma" Fady ter ) s Penicill Drug Active Rash 2019-[address] [facility] [facility] Allergy 8-23 [facility] 00:[facility] Medical [facility] Center Sulfa Drug Active Rash 2019-[address] [facility] (Sulfona Allergy 8-23 [facility] mide 00:00: Medical Antibiot 00 Center ics) PENICILL Allergy Active High Rash 2020-[address] [facility] INS 8-23 [facility] 00:[facility]: Medical 00 Center SULFA Allergy Active High Rash 2020-[address] [facility] (SULFONA 8-23 [facility] MIDE 00:00: Medical ANTIBIOT 00 Center ICS) CORTICOS Allergy Active Other 2019-[address] TEROIDS 8-23 [facility] (GLUCOCO 00:00: Medical RTICOIDS 00 Center ) Brimonid Propensi Active Other - See 2019-0 [...] Source History SDOH [facility] Alcohol Comment Medical C enter History SDOH [facility] Alcohol Std Medical Cente r Drinks History SDOH [facility] Alcohol Binge Medical Fady ter Exposure to 2022-11-12 2022-11-22 Not sure University SARS-CoV-2 00:00:00 06:46:00 [place] Medical (event) Branch Tobacco use and 2022-05-26 2022-05-26 Smokeless tobacco Un iversity of exposure 00:00:00 00:00:00 non-user [facility] Alcohol intake 2020-02-27 2020-02-[address] [facility] 00:00:00 00:00:00 non-drinker of Medical Ce nter alcohol (finding) History SDOH 2020-02-24 2020-02-[address] [facility] Alcohol Frequency 00:00:00 00:00:00 Medical Center History of 2011-07-14 Cigarette Smoker Universi ty of tobacco use 00:00:00 [facility] Sex [birth year] KIMI Higuera kes 00:00:00 00:00:00 [facility] Smoking Status Start Date Stop Date Source Ex-smoker 2022-05-26 00:00:00 2022-05-26 00:00:00 Universi ty of [facility] Medications Ordered Filled Start Stop Current Ordering Indication Dosage Frequency Signature Comments Components Source Medication Medication Date Date Medication? Clinician (SIG) Name Name 2022- No [id number] 26.2mCi 26.2 Univ ers 99m-labeled 12-15 [facility] i ty of red blood 14:30: 14:20 , [place] cells 00 :00 Intravenou Medical (ULTRATAG s, ONCE, 1 Bran ch RBC) dose, On injection Wed 26.2 12/15/22 at millicurie 0930, Routine aspirin 81 Yes [id number] 81mg Take 81 mg Univers mg tablet 5-24 by mouth ity of 14:15: daily. [address] aspirin 81 Yes [id number] 81mg Take 81 mg Univers mg tablet 5-24 by mouth ity of 14:15: daily. [address] aspirin 81 Yes [id number] 81mg Take 81 mg Univers mg tablet 5-24 by mouth ity of 14:15: daily. [address] aspirin 81 2022- Yes [id number] 81mg Take 81 mg Univers mg tablet 5-24 by mouth ity of 14:15: daily. [address] aspirin 81 Yes [id number] 81mg Take 81 mg Univers mg tablet 5-24 by mouth ity of 14:15: daily. [address] aspirin 81 3-0 Yes [id number] 81mg Take 81 mg Univers mg tablet 5-24 by mouth ity of 14:15: daily. [address] aspirin 81 3-0 Yes [id number] 81mg Take 81 mg Univers mg tablet 5-24 by mouth ity of 14:15: daily. [address] KCL 10 mEq 2023-0 Yes 10meq Take 1 Univ ers tablet 5-24 tablet by ity of 13:52: mouth in [place] [address] the Medical morning. Branch KCL 10 mEq 2023-0 Yes 10meq Take 1 Univ ers tablet 5-24 tablet by ity of 13:52: mouth in [place] [address] the Medical morning. Branch KCL 10 mEq 2023-0 Yes 10meq Take 1 Univ ers tablet 5-24 tablet by ity of 13:52: mouth in [place] [address] the Medical morning. Branch KCL 10 mEq 2023-0 Yes 10meq Take 1 Univ ers tablet 5-24 tablet by ity of 13:52: mouth in [place] [address] the Medical morning. Branch KCL 10 mEq 2023-0 Yes 10meq Take 1 Univ ers tablet 5-24 tablet by ity of 13:52: mouth in [place] [address] the Medical morning. Branch KCL 10 mEq 2023-0 Yes 10meq Take 1 Univ ers tablet 5-24 tablet by ity of 13:52: mouth in [place] [address] the Medical morning. Branch KCL 10 mEq 2023-0 Yes 10meq Take 1 Univ ers tablet 5-24 tablet by ity of 13:52: mouth in [place] [address] the Medical morning. Branch levoFLOXaci 3-0 202- No 500mg Take 500 Univers n 5-18 05-18 mg by ity of (LEVAQUIN) 10:00: 00:00 mouth [place] 500 mg 12 :00 every 24 Medical tablet (twenty-fo Branch ur) hours. levoFLOXaci 2023-0 2022- No 500mg Take 500 Univers n 5-18 05-18 mg by ity of (LEVAQUIN) 10:00: 00:00 mouth [place] 500 mg 12 :00 every 24 Medical tablet (twenty-fo Branch ur) hours. predniSONE 3-0 202- No Take by Uni vers 2 mg TbEC 5-18 05-18 mouth ity of 09:59: 00:00 daily. [place] 48 :00 Medical Branch predniSONE 2022- No Take by Uni vers 2 mg TbEC 5-18 05-18 mouth ity of 09:59: 00:00 daily. [place] 48 :00 Medical Branch furosemide 2022- No 20mg Take 20 mg Univers (LASIX) 20 5-18 05-18 by mouth ity of mg tablet 09:58: 00:00 in the [place] 25 :00 morning. Medical Branch furosemide 2022- No 20mg Take 20 mg Univers (LASIX) 20 5-18 -18 by mouth ity of mg tablet 09:58: 00:00 in the [place] 25 :00 morning. Medical Branch PRALUENT Yes [id number] 75mg INJECT 1 Univers PEN 75 5-01 ML UNDER ity of mg/mL PnIj 00:00: THE SKIN Ziyad as 00 EVERY 2 Medical (TWO) Branch WEEKS. PRALUENT Yes [id number] 75mg INJECT 1 Univers PEN 75 5-01 ML UNDER ity of mg/mL PnIj 00:00: THE SKIN [place] as 00 EVERY 2 Medical (TWO) Branch WEEKS. PRALUENT Yes [id number] 75mg INJECT 1 Univers PEN 75 5-01 ML UNDER ity of mg/mL PnIj 00:00: THE SKIN [place] 00 EVERY 2 Medical (TWO) Branch WEEKS. PRALUENT Yes [id number] 75mg INJECT 1 Univers PEN 75 5-01 ML UNDER ity of mg/mL PnIj 00:00: THE SKIN [place] as 00 EVERY 2 Medical (TWO) Branch WEEKS. PRALUENT Yes [id number] 75mg INJECT 1 Univers PEN 75 5-01 ML UNDER ity of mg/mL PnIj 00:00: THE SKIN [place] 00 EVERY 2 Medical (TWO) Branch WEEKS. PRALUENT 0 Yes [id number] 75mg INJECT 1 Univers PEN 75 5-01 ML UNDER ity of mg/mL PnIj 00:00: THE SKIN [place] 00 EVERY 2 Medical (TWO) Branch WEEKS. PRALUENT Yes [id number] 75mg INJECT 1 Univers PEN 75 5-01 ML UNDER ity of mg/mL PnIj 00:00: THE SKIN [place] 00 EVERY 2 Medical (TWO) Branch WEEKS. PRALUENT 2023-0 Yes [id number] 75mg INJECT 1 Univers PEN 75 5-01 ML UNDER ity of mg/mL PnIj 00:00: THE SKIN [place] 00 EVERY 2 Medical (TWO) Branch WEEKS. PRALUENT 2022-0 Yes [id number] 75mg INJECT 1 Univers PEN 75 5-01 ML UNDER ity of mg/mL PnIj 00:00: THE SKIN [place] 00 EVERY 2 Medical (TWO) Branch WEEKS. PRALUENT 2022-0 Yes [id number] 75mg INJECT 1 Univers PEN 75 5-01 ML UNDER ity of mg/mL PnIj 00:00: THE SKIN [place] 00 EVERY 2 Medical (TWO) Branch WEEKS. PRALUENT 2022-0 Yes [id number] 75mg INJECT 1 Univers PEN 75 5-01 ML UNDER ity of mg/mL PnIj 00:00: THE SKIN [place] as 00 EVERY 2 Medical (TWO) Branch WEEKS. METOPROLOL 2022-0 Yes [id number] TAKE 1 U nivers TARTRATE 25 4-20 TABLET BY ity of mg tablet 00:00: MOUTH TWICE A Medical DAY Branch METOPROLOL 2022-0 Yes [id number] TAKE 1 U nivers TARTRATE 25 4-20 TABLET BY ity of mg tablet 00:00: MOUTH TWICE A Medical DAY Branch METOPROLOL 2022-0 Yes [id number] TAKE 1 U nivers TARTRATE 25 4-20 TABLET BY ity of mg tablet 00:00: MOUTH TWICE A Medical DAY Branch METOPROLOL 2022-0 Yes [id number] TAKE 1 U nivers TARTRATE 25 4-20 TABLET BY ity of mg tablet 00:00: TWICE A Medical DAY Branch METOPROLOL 3-0 Yes [id number] TAKE 1 U nivers TARTRATE 25 4-20 TABLET BY ity of mg tablet 00:00: MOUTH TWICE A Medical DAY Branch METOPROLOL 3-0 Yes [id number] TAKE 1 U nivers TARTRATE 25 4-20 TABLET BY ity of mg tablet 00:00: MOUTH TWICE A Medical DAY Branch METOPROLOL 3-0 Yes [id number] TAKE 1 U nivers TARTRATE 25 4-20 TABLET BY ity of mg tablet 00:00: MOUTH TWICE A Medical DAY Branch METOPROLOL 3-0 Yes [id number] TAKE 1 U nivers TARTRATE 25 4-20 TABLET BY ity of mg tablet 00:00: MOUTH [place] 00 TWICE A Medical DAY Branch METOPROLOL 2023-0 Yes [id number] TAKE 1 U nivers TARTRATE 25 4-20 TABLET BY ity of mg tablet 00:00: MOUTH [place] 00 TWICE A Medical DAY Branch METOPROLOL 2023-0 Yes [id number] TAKE 1 U nivers TARTRATE 25 4-20 TABLET BY ity of mg tablet 00:00: MOUTH [place] TWICE A Medical DAY Branch METOPROLOL 2023-0 Yes [id number] TAKE 1 U nivers TARTRATE 25 4-20 TABLET BY ity of mg tablet 00:00: MOUTH [place] 00 TWICE A Medical DAY Branch METOPROLOL 2023-0 Yes [id number] TAKE 1 U nivers TARTRATE 25 4-20 TABLET BY ity of mg tablet 00:00: MOUTH [place] 00 TWICE A Medical DAY Branch hydroCHLORO 2023-0 Yes [id number] 12.5mg Take 1 Univers thiazide 4-05 capsule by ity o f 12.5 mg 00:00: mouth in [place] capsule 00 the Medical morning. Branch hydroCHLORO 2023-0 Yes [id number] 12.5mg Take 1 Univers thiazide 4-05 capsule by ity o f 12.5 mg 00:00: mouth in [place] capsule 00 the Medical morning. Branch hydroCHLORO 2023-0 Yes [id number] 12.5mg Take 1 Univers thiazide 4-05 capsule by ity o f 12.5 mg 00:00: mouth in [place] capsule 00 the Medical morning. Branch hydroCHLORO 2023-0 Yes [id number] 12.5mg Take 1 Univers thiazide 4-05 capsule by ity o f 12.5 mg 00:00: mouth in [place] capsule 00 the Medical morning. Branch hydroCHLORO 2023-0 Yes [id number] 12.5mg Take 1 Univers thiazide 4-05 capsule by ity o f 12.5 mg 00:00: mouth in [place] capsule 00 the Medical morning. Branch hydroCHLORO 2023-0 Yes [id number] 12.5mg Take 1 Univers thiazide 4-05 capsule by ity o f 12.5 mg 00:00: mouth in [place] capsule 00 the Medical morning. Branch hydroCHLORO 2023-0 Yes [id number] 12.5mg Take 1 Univers thiazide 4-05 capsule by ity o f 12.5 mg 00:00: mouth in [place] capsule 00 the Medical morning. Branch hydroCHLORO 2023-0 Yes [id number] 12.5mg Take 1 Univers thiazide 4-05 capsule by ity o f 12.5 mg 00:00: mouth in [place] capsule 00 the Medical morning. Branch hydroCHLORO 2023-0 Yes [id number] 12.5mg Take 1 Univers thiazide 4-05 capsule by ity o f 12.5 mg 00:00: mouth in [place] capsule 00 the Medical morning. Branch hydroCHLORO 2023-0 Yes [id number] 12.5mg Take 1 Univers thiazide 4-05 capsule by ity o f 12.5 mg 00:00: mouth in [place] capsule 00 the Medical morning. Branch hydroCHLORO 2023-0 Yes [id number] 12.5mg Take 1 Univers thiazide 4-05 capsule by ity o f 12.5 mg 00:00: mouth in [place] capsule 00 the Medical morning. Branch hydroCHLORO 2023-0 Yes [id number] 12.5mg Take 1 Univers thiazide 4-05 capsule by ity o f 12.5 mg 00:00: mouth in [place] capsule 00 the Medical morning. Branch hydroCHLORO 2023-0 Yes [id number] 12.5mg Take 1 Univers thiazide 4-05 capsule by ity o f 12.5 mg 00:00: mouth in [place] capsule 00 the Medical morning. Branch OMEPRAZOLE 2023-0 Yes [id number] TAKE 1 Univers 20 mg 4-03 CAPSULE BY ity of capsule 00:00: MOUTH [place] 00 EVERY DAY Medical Branch OMEPRAZOLE 2023-0 Yes [id number] TAKE 1 Univers 20 mg 4-03 CAPSULE BY ity of capsule 00:00: MOUTH [place] 00 EVERY DAY Medical Branch OMEPRAZOLE 2023-0 Yes [id number] TAKE 1 Univers 20 mg 4-03 CAPSULE BY ity of capsule 00:00: MOUTH [place] 00 EVERY DAY Medical Branch OMEPRAZOLE 2023-0 Yes [id number] TAKE 1 Univers 20 mg 4-03 CAPSULE BY ity of capsule 00:00: MOUTH [place] 00 EVERY DAY Medical Branch OMEPRAZOLE 2023-0 Yes [id number] TAKE 1 Univers 20 mg 4-03 CAPSULE BY ity of capsule 00:00: MOUTH [place] 00 EVERY DAY Medical Branch OMEPRAZOLE 2023-0 Yes [id number] TAKE 1 Univers 20 mg 4-03 CAPSULE BY ity of capsule 00:00: MOUTH [place] 00 EVERY DAY Medical Branch OMEPRAZOLE 2023-0 Yes [id number] TAKE 1 Univers 20 mg 4-03 CAPSULE BY ity of capsule 00:00: MOUTH [place] 00 EVERY DAY Medical Branch OMEPRAZOLE 2023-0 Yes [id number] TAKE 1 Univers 20 mg 4-03 CAPSULE BY ity of capsule 00:00: MOUTH [place] 00 EVERY DAY Medical Branch OMEPRAZOLE 2023-0 Yes [id number] TAKE 1 Univers 20 mg 4-03 CAPSULE BY ity of capsule 00:00: MOUTH [place] 00 EVERY DAY Medical Branch OMEPRAZOLE 2023-0 Yes [id number] TAKE 1 Univers 20 mg 4-03 CAPSULE BY ity of capsule 00:00: MOUTH [place] 00 EVERY DAY Medical Branch OMEPRAZOLE 2023-0 Yes [id number] TAKE 1 Univers 20 mg 4-03 CAPSULE BY ity of capsule 00:00: MOUTH [place] 00 EVERY DAY Medical Branch OMEPRAZOLE 2023-0 Yes [id number] TAKE 1 Univers 20 mg 4-03 CAPSULE BY ity of capsule 00:00: MOUTH [place] 00 EVERY DAY Medical Branch OMEPRAZOLE 2023-0 Yes [id number] TAKE 1 Univers 20 mg 4-03 CAPSULE BY ity of capsule 00:00: MOUTH [place] 00 EVERY DAY Medical Branch OMEPRAZOLE 2023-0 Yes [id number] TAKE 1 Univers 20 mg 4-03 CAPSULE BY ity of capsule 00:00: MOUTH [place] 00 EVERY DAY Medical Branch HYDROCHLORO 2023-0 2022- No 12.5mg Take 12.5 Univers THIAZIDE 3-28 03-28 mg by ity of ORAL 07:41: 00:00 mouth. [place] 31 :00 Medical Branch hydroCHLORO 2023-0 Yes [id number] 12.5mg Take 1 Univers thiazide 3-28 capsule by ity o f 12.5 mg 00:00: mouth in [place] capsule 00 the Medical morning. Branch hydroCHLORO 2023-0 Yes [id number] 12.5mg Take 1 Univers thiazide 3-28 capsule by ity o f 12.5 mg 00:00: mouth in [place] capsule 00 the Medical morning. Branch hydroCHLORO 2023-0 Yes [id number] 12.5mg Take 1 Univers thiazide 3-28 capsule by ity o f 12.5 mg 00:00: mouth in [place] capsule 00 the Medical morning. Branch hydroCHLORO 2023-0 3- No [id number] 12.5mg Take 1 Univers thiazide 3-28 04-05 capsule by ity of 12.5 mg 00:00: 00:00 mouth in [place] capsule 00 :00 the Medical morning. Branch HYDROCHLORO 2022-0 Yes 12.5mg Take 12.5 Univers THIAZIDE 2-15 mg by ity of ORAL 10:26: mouth. [place] [address] Medical Branch KCL 10 mEq 2022-0 Yes 10meq Take 10 Uni vers tablet 2-15 mEq by ity of 10:26: mouth in [place] [address] the Medical morning. Branch predniSONE 0 Yes Take by Univ ers 2 mg TbEC 2-15 mouth ity of 10:26: daily. [place] [address] Medical Branch furosemide 2022-0 Yes 20mg Take 20 mg U nivers (LASIX) 20 2-15 by mouth ity o f mg tablet 10:26: in the [place] [address] morning. Medical Branch levoFLOXaci 0 Yes 500mg Take 500 U nivers n 2-15 mg by ity of (LEVAQUIN) 10:26: mouth [place] 500 mg 11 every 24 Medical tablet (twenty [place] ur) hours. HYDROCHLORO 2022-0 Yes 12.5mg Take 12.5 Univers THIAZIDE 2-15 mg by ity of ORAL 10:26: mouth. [address] Branch KCL 10 mEq 2022-0 Yes 10meq Take 10 Uni vers tablet 2-15 mEq by ity of 10:26: mouth in [place] [address] the morning. Branch predniSONE 2022-0 Yes Take by Univ ers 2 mg TbEC 2-15 mouth ity of 10:26: daily. [address] Branch furosemide 2022-0 Yes 20mg Take 20 mg U nivers (LASIX) 20 2-15 by mouth ity o f mg tablet 10:26: in the [place] [address] morning. Medical Branch levoFLOXaci 2022-0 Yes 500mg Take 500 U nivers n 2-15 mg by ity of (LEVAQUIN) 10:26: mouth [place] 500 mg 11 every 24 Medical tablet (twenty-fo [place] ur) hours. HYDROCHLORO 2022-0 Yes 12.5mg Take 12.5 Univers THIAZIDE 2-15 mg by ity of ORAL 10:26: mouth. [address] Branch KCL 10 mEq 2022-0 Yes 10meq Take 10 Uni vers tablet 2-15 mEq by ity of 10:26: mouth in [place] [address] the Medical morning. Branch predniSONE 2022-0 Yes Take by Univ ers 2 mg TbEC 2-15 mouth ity of 10:26: daily. [place] [address] Medical Branch furosemide 2022-0 Yes 20mg Take 20 mg U nivers (LASIX) 20 2-15 by mouth ity o f mg tablet 10:26: in the [place] [address] morning. Medical Branch levoFLOXaci 2022-0 Yes 500mg Take 500 U nivers n 2-15 mg by ity of (LEVAQUIN) 10:26: mouth [place] 500 mg 11 every 24 Medical tablet ( [place] ur) hours. HYDROCHLORO 2023-0 Yes 12.5mg Take 12.5 Univers THIAZIDE 2-15 mg by ity of ORAL 10:26: mouth. [address] Branch KCL 10 mEq 2022-0 Yes 10meq Take 10 Uni vers tablet 2-15 mEq by ity of 10:26: mouth in [place] [address] the Medical morning. Branch predniSONE 2022-0 Yes Take by Univ ers 2 mg TbEC 2-15 mouth ity of 10:26: daily. [place] [address] Medical Branch furosemide 2022-0 Yes 20mg Take 20 mg U nivers (LASIX) 20 2-15 by mouth ity o f mg tablet 10:26: in the [place] [address] morning. Medical Branch levoFLOXaci 2022-0 Yes 500mg Take 500 U nivers n 2-15 mg by ity of (LEVAQUIN) 10:26: mouth [place] 500 mg 11 every 24 Medical tablet ( [place] ur) hours. HYDROCHLORO 3-0 Yes 12.5mg Take 12.5 Univers THIAZIDE 2-15 mg by ity of ORAL 10:26: mouth. [place] [address] Medical Branch KCL 10 mEq 2022-0 Yes 10meq Take 10 Uni vers tablet 2-15 mEq by ity of 10:26: mouth in [place] [address] the Medical morning. Branch predniSONE 2022-0 Yes Take by Univ ers 2 mg TbEC 2-15 mouth ity of 10:26: daily. [place] [address] Medical Branch furosemide 3-0 Yes 20mg Take 20 mg U nivers (LASIX) 20 2-15 by mouth ity o f mg tablet 10:26: in the [place] [address] morning. Medical Branch levoFLOXaci 3-0 Yes 500mg Take 500 U nivers n 2-15 mg by ity of (LEVAQUIN) 10:26: mouth [place] 500 mg 11 every 24 Medical tablet ( [place] ur) hours. HYDROCHLORO 3-0 Yes 12.5mg Take 12.5 Univers THIAZIDE 2-15 mg by ity of ORAL 10:26: mouth. [address] Branch KCL 10 mEq 2022-0 Yes 10meq Take 10 Uni vers tablet 2-15 mEq by ity of 10:26: mouth in [place] [address] the Medical morning. Branch predniSONE 2022-0 Yes Take by Univ ers 2 mg TbEC 2-15 mouth ity of 10:26: daily. [place] [address] Medical Branch furosemide 3-0 Yes 20mg Take 20 mg U nivers (LASIX) 20 2-15 by mouth ity o f mg tablet 10:26: in the [place] [address] morning. Medical Branch levoFLOXaci 2022-0 Yes 500mg Take 500 U nivers n 2-15 mg by ity of (LEVAQUIN) 10:26: mouth [place] 500 mg 11 every 24 Medical tablet (fo [place] ur) hours. HYDROCHLORO 3-0 Yes 12.5mg Take 12.5 Univers THIAZIDE 2-15 mg by ity of ORAL 10:26: mouth. [address] Branch KCL 10 mEq 2022-0 Yes 10meq Take 10 Uni vers tablet 2-15 mEq by ity of 10:26: mouth in [place] [address] the Medical morning. Branch predniSONE 2022-0 Yes Take by Univ ers 2 mg TbEC 2-15 mouth ity of 10:26: daily. [address] Branch furosemide 3-0 Yes 20mg Take 20 mg U nivers (LASIX) 20 2-15 by mouth ity o f mg tablet 10:26: in the [place] [address] morning. Medical Branch levoFLOXaci 3-0 Yes 500mg Take 500 U nivers n 2-15 mg by ity of (LEVAQUIN) 10:26: mouth [place] 500 mg 11 every 24 Medical tablet ([facility]) hours. HYDROCHLORO 2023-0 Yes 12.5mg Take 12.5 [facility] THIAZIDE 2-15 mg by ity of ORAL 10:26: mouth. [address] KCL 10 mEq 2022-0 Yes 10meq Take 10 Uni vers tablet 2-15 mEq by ity of 10:26: mouth in [place] [address] the Medical morning. Branch predniSONE 2022-0 Yes Take by Univ ers 2 mg TbEC 2-15 mouth ity of 10:26: daily. [place] [address] Medical Branch furosemide 3-0 Yes 20mg Take 20 mg U nivers (LASIX) 20 2-15 by mouth ity o f mg tablet 10:26: in the [place] [address] morning. Medical Branch levoFLOXaci 2023-0 Yes 500mg Take 500 U nivers n 2-15 mg by ity of (LEVAQUIN) 10:26: mouth [place] 500 mg 11 every 24 Medical tablet ( [facility]) hours. HYDROCHLORO 2023-0 Yes 12.5mg Take 12.5 [facility] THIAZIDE 2-15 mg by ity of ORAL 10:26: mouth. [place] [address] Medical Branch KCL 10 mEq 3-0 Yes 10meq Take 10 Uni vers tablet 2-15 mEq by ity of 10:26: mouth in [place] [address] the Medical morning. Branch predniSONE 3-0 Yes Take by Univ ers 2 mg TbEC 2-15 mouth ity of 10:26: daily. [place] [address] Medical Branch furosemide 3-0 Yes 20mg Take 20 mg U nivers (LASIX) 20 2-15 by mouth ity o f mg tablet 10:26: in the [place] [address] morning. Medical Branch levoFLOXaci 3-0 Yes 500mg Take 500 U nivers n 2-15 mg by ity of (LEVAQUIN) 10:26: mouth [place] 500 mg 11 every 24 Medical tablet ( [facility]) hours. KCL 10 mEq 3-0 Yes 10meq Take 10 Uni vers tablet 2-15 mEq by ity of 10:26: mouth in [place] [address] the Medical morning. Branch predniSONE 3-0 Yes Take by [facility] ers 2 mg TbEC 2-15 mouth ity of 10:26: daily. [place] [address] Medical Branch furosemide 3-0 Yes 20mg Take 20 mg U nivers (LASIX) 20 2-15 by mouth ity o f mg tablet 10:26: in the [place] [address] morning. Medical Branch levoFLOXaci 2023-0 Yes 500mg Take 500 U nivers n 2-15 mg by ity of (LEVAQUIN) 10:26: mouth [place] 500 mg 11 every 24 Medical tablet ( [facility]) hours. KCL 10 mEq 3-0 Yes 10meq Take 10 Uni vers tablet 2-15 mEq by ity of 10:26: mouth in [place] [address] the Medical morning. Branch predniSONE 3-0 Yes Take by [facility] ers 2 mg TbEC 2-15 mouth ity of 10:26: daily. [place] [address] Medical Branch furosemide 3-0 Yes 20mg Take 20 mg U nivers (LASIX) 20 2-15 by mouth ity o f mg tablet 10:26: in the [place] [address] morning. Medical Branch levoFLOXaci 3-0 Yes 500mg Take 500 U nivers n 2-15 mg by ity of (LEVAQUIN) 10:26: mouth [place] 500 mg 11 every 24 Medical tablet ( [facility]) hours. KCL 10 mEq 3-0 Yes 10meq Take 10 Uni vers tablet 2-15 mEq by ity of 10:26: mouth in [place] [address] the Medical morning. Branch predniSONE 3-0 Yes Take by [facility] ers 2 mg TbEC 2-15 mouth ity of 10:26: daily. [place] [address] Medical Branch furosemide 3-0 Yes 20mg Take 20 mg U nivers (LASIX) 20 2-15 by mouth ity o f mg tablet 10:26: in the [place] [address] morning. Medical Branch levoFLOXaci 3-0 Yes 500mg Take 500 U nivers n 2-15 mg by ity of (LEVAQUIN) 10:26: mouth [place] 500 mg 11 every 24 Medical tablet ( [facility]) hours. KCL 10 mEq 2022-0 Yes 10meq Take 10 Uni vers tablet 2-15 mEq by ity of 10:26: mouth in [place] [address] the Medical morning. Branch predniSONE 3-0 Yes Take by Univ ers 2 mg TbEC 2-15 mouth ity of 10:26: daily. [place] [address] Medical Branch furosemide 3-0 Yes 20mg Take 20 mg U nivers (LASIX) 20 2-15 by mouth ity o f mg tablet 10:26: in the [place] [address] morning. Medical Branch levoFLOXaci 3-0 Yes 500mg Take 500 U nivers n 2-15 mg by ity of (LEVAQUIN) 10:26: mouth [place] 500 mg 11 every 24 Medical tablet ( [facility]) hours. KCL 10 mEq 3-0 Yes 10meq Take 10 Uni vers tablet 2-15 mEq by ity of 10:26: mouth in [place] [address] the Medical morning. Branch predniSONE 3-0 Yes Take by Univ ers 2 mg TbEC 2-15 mouth ity of 10:26: daily. [place] [address] Medical Branch furosemide 2022-0 Yes 20mg Take 20 mg U nivers (LASIX) 20 2-15 by mouth ity o f mg tablet 10:26: in the [place] [address] morning. Medical Branch levoFLOXaci 2022-0 Yes 500mg Take 500 U nivers n 2-15 mg by ity of (LEVAQUIN) 10:26: mouth [place] 500 mg 11 every 24 Medical tablet ( [facility]) hours. KCL 10 mEq 2022-0 Yes 10meq Take 10 Uni vers tablet 2-15 mEq by ity of 10:26: mouth in [place] [address] the Medical morning. Branch predniSONE 2022-[address] [facility] ers 2 mg TbEC 2-15 mouth ity of 10:26: daily. [address] furosemide 2022-0 Yes 20mg Take 20 mg U nivers (LASIX) 20 2-15 by mouth ity o f mg tablet 10:26: in the [place] [address] morning. Medical Branch levoFLOXaci 2022-0 Yes 500mg Take 500 U nivers n 2-15 mg by ity of (LEVAQUIN) 10:26: mouth [place] 500 mg 11 every 24 Medical tablet ( [facility]) hours. KCL 10 mEq 2022-0 Yes 10meq Take 10 Uni vers tablet 2-15 mEq by ity of 10:26: mouth in [place] [address] the Medical morning. Branch KCL 10 mEq 2022-0 Yes 10meq Take 10 Uni vers tablet 2-15 mEq by ity of 10:26: mouth in [place] [address] the Medical morning. Branch KCL 10 mEq 2022-0 Yes 10meq Take 10 Uni vers tablet 2-15 mEq by ity of 10:26: mouth in [place] [address] the Medical morning. Branch HYDROCHLORO 2021-07 Yes 12.5mg Take 12.5 [facility] THIAZIDE 1-23 mg by ity of ORAL 10:02: mouth. [address] HYDROCHLORO 2021-07 Yes 12.5mg Take 12.5 [facility] THIAZIDE 1-23 mg by ity of ORAL 10:02: mouth. [address] HYDROCHLORO 2021-07 Yes 12.5mg Take 12.5 [facility] THIAZIDE 1-23 mg by ity of ORAL 10:02: mouth. [address] HYDROCHLORO 2021-07 Yes 12.5mg Take 12.5 [facility] THIAZIDE 1-23 mg by ity of ORAL 10:02: mouth. [address] HYDROCHLORO 2021-07 Yes 12.5mg Take 12.5 [facility] THIAZIDE 1-23 mg by ity of ORAL 10:02: mouth. [address] HYDROCHLORO 2021-07 Yes 12.5mg Take 12.5 [facility] THIAZIDE 1-23 mg by ity of ORAL 10:02: mouth. [address] HYDROCHLORO 2021-07 Yes 12.5mg Take 12.5 [facility] THIAZIDE 1-23 mg by ity of ORAL 10:02: mouth. [address] HYDROCHLORO 2021-07 Yes 12.5mg Take 12.5 [facility] THIAZIDE 1-23 mg by ity of ORAL 10:02: mouth. [address] aspirin 81 2021-07 Yes [id number] 81mg Take 81 mg [facility] mg tablet 1-23 by mouth ity of 09:54: daily. [address] aspirin 81 2021-07 Yes [id number] 81mg Take 81 mg [facility] mg tablet 1-23 by mouth ity of 09:54: daily. [address] aspirin 81 2021-07 Yes [id number] 81mg Take 81 mg [facility] mg tablet 1-23 by mouth ity of 09:54: daily. [address] aspirin 81 2021-07 Yes [id number] 81mg Take 81 mg [facility] mg tablet 1-23 by mouth ity of 09:54: daily. [address] aspirin 81 2021-07 Yes [id number] 81mg Take 81 mg [facility] mg tablet 1-23 by mouth ity of 09:54: daily. [address] aspirin 81 2021-07 Yes [id number] 81mg Take 81 mg [facility] mg tablet 1-23 by mouth ity of 09:54: daily. [address] aspirin 81 2021-07 Yes [id number] 81mg Take 81 mg [facility] mg tablet 1-23 by mouth ity of 09:54: daily. [address] aspirin 81 2021-07 Yes [id number] 81mg Take 81 mg [facility] mg tablet 1-23 by mouth ity of 09:54: daily. [address] aspirin 81 2021-07 Yes [id number] 81mg Take 81 mg [facility] mg tablet 1-23 by mouth ity of 09:54: daily. [address] aspirin 81 2021-07 Yes [id number] 81mg Take 81 mg [facility] mg tablet 1-23 by mouth ity of 09:54: daily. [address] Branch aspirin 81 2021-07 Yes [id number] 81mg Take 81 mg [facility] mg tablet 1-23 by mouth ity of 09:54: daily. [address] Branch aspirin 81 2021-07 Yes [id number] 81mg Take 81 mg [facility] mg tablet 1-23 by mouth ity of 09:54: daily. [address] Branch aspirin 81 2021-07 Yes [id number] 81mg Take 81 mg [facility] mg tablet 1-23 by mouth ity of 09:54: daily. [address] Branch aspirin 81 2021-07 Yes [id number] 81mg Take 81 mg [facility] mg tablet 1-23 by mouth ity of 09:54: daily. [address] aspirin 81 2021-07 Yes [id number] 81mg Take 81 mg [facility] mg tablet 1-23 by mouth ity of 09:54: daily. [address] aspirin 81 2021-07 Yes [id number] 81mg Take 81 mg [facility] mg tablet 1-23 by mouth ity of 09:54: daily. [address] aspirin 81 2021-07 Yes [id number] 81mg Take 81 mg [facility] mg tablet 1-23 by mouth ity of 09:54: daily. [address] aspirin 81 2021-07 Yes [id number] 81mg Take 81 mg [facility] mg tablet 1-23 by mouth ity of 09:54: daily. [address] aspirin 81 2021-07 Yes [id number] 81mg Take 81 mg Univers mg tablet 1-23 by mouth ity of 09:54: daily. [address] aspirin 81 2021-07 Yes [id number] 81mg Take 81 mg Univers mg tablet 1-23 by mouth ity of 09:54: daily. [address] aspirin 81 2021-07 Yes [id number] 81mg Take 81 mg [facility] mg tablet 1-23 by mouth ity of 09:54: daily. [address] aspirin 81 2021-07 Yes [id number] 81mg Take 81 mg [facility] mg tablet 1-23 by mouth ity of 09:54: daily. [address] aspirin 81 2021-07 Yes [id number] 81mg Take 81 mg [facility] mg tablet 1-23 by mouth ity of 09:54: daily. [address] aspirin 81 2021-07 Yes [id number] 81mg Take 81 mg [facility] mg tablet 1-23 by mouth ity of 09:54: daily. [address] aspirin 81 2021-07 Yes [id number] 81mg Take 81 mg [facility] mg tablet 1-23 by mouth ity of 09:54: daily. [address] aspirin 81 2021-07 Yes [id number] 81mg Take 81 mg [facility] mg tablet 1-23 by mouth ity of 09:54: daily. [address] PRALUENT 2021-07 Yes [id number] 75mg INJECT 1 [facility] PEN 75 0-13 ML UNDER ity of mg/mL PnIj 00:00: THE SKIN [place] 00 EVERY 2 Medical (TWO) Branch WEEKS. PRALUENT 2021-07 Yes [id number] 75mg INJECT 1 [facility] PEN 75 0-13 ML UNDER ity of mg/mL PnIj 00:00: THE SKIN [place] 00 EVERY 2 Medical (TWO) Branch WEEKS. PRALUENT 2021-07 Yes [id number] 75mg INJECT 1 [facility] PEN 75 0-13 ML UNDER ity of mg/mL PnIj 00:00: THE SKIN [place] 00 EVERY 2 Medical (TWO) Branch WEEKS. PRALUENT 2021-07 Yes [id number] 75mg INJECT 1 [facility] PEN 75 0-13 ML UNDER ity of mg/mL PnIj 00:00: THE SKIN [place] 00 EVERY 2 Medical (TWO) Branch WEEKS. PRALUENT 2021-07 Yes [id number] 75mg INJECT 1 [facility] PEN 75 0-13 ML UNDER ity of mg/mL PnIj 00:00: THE SKIN [place] 00 EVERY 2 Medical (TWO) Branch WEEKS. PRALUENT 2021-07 Yes [id number] 75mg INJECT 1 [facility] PEN 75 0-13 ML UNDER ity of mg/mL PnIj 00:00: THE SKIN [place] 00 EVERY 2 Medical (TWO) Branch WEEKS. PRALUENT 2021-07 Yes [id number] 75mg INJECT 1 [facility] PEN 75 0-13 ML UNDER ity of mg/mL PnIj 00:00: THE SKIN [place] 00 EVERY 2 Medical (TWO) Branch WEEKS. PRALUENT 2021-07 Yes [id number] 75mg INJECT 1 [facility] PEN 75 0-13 ML UNDER ity of mg/mL PnIj 00:00: THE SKIN [place] 00 EVERY 2 Medical (TWO) Branch WEEKS. PRALUENT 2021-07 Yes [id number] 75mg INJECT 1 [facility] PEN 75 0-13 ML UNDER ity of mg/mL PnIj 00:00: THE SKIN [place] 00 EVERY 2 Medical (TWO) Branch WEEKS. PRALUENT 2021-07 Yes [id number] 75mg INJECT 1 [facility] PEN 75 0-13 ML UNDER ity of mg/mL PnIj 00:00: THE SKIN [place] 00 EVERY 2 Medical (TWO) Branch WEEKS. PRALUENT 2021-07 Yes [id number] 75mg INJECT 1 [facility] PEN 75 0-13 ML UNDER ity of mg/mL PnIj 00:00: THE SKIN [place] 00 EVERY 2 Medical (TWO) Branch WEEKS. PRALUENT 2021-07 Yes [id number] 75mg INJECT 1 [facility] PEN 75 0-13 ML UNDER ity of mg/mL PnIj 00:00: THE SKIN [place] EVERY 2 Medical (TWO) Branch WEEKS. PRALUENT 2021-07 Yes [id number] 75mg INJECT 1 [facility] PEN 75 0-13 ML UNDER ity of mg/mL PnIj 00:00: THE SKIN [place] 00 EVERY 2 Medical (TWO) Branch WEEKS. PRALUENT 2021-07 Yes [id number] 75mg INJECT 1 [facility] PEN 75 0-13 ML UNDER ity of mg/mL PnIj 00:00: THE SKIN [place] 00 EVERY 2 Medical (TWO) Branch WEEKS. PRALUENT 2021-07 Yes [id number] 75mg INJECT 1 [facility] PEN 75 0-13 ML UNDER ity of mg/mL PnIj 00:00: THE SKIN [place] 00 EVERY 2 Medical (TWO) Branch WEEKS. PRALUENT 2021-07 Yes [id number] 75mg INJECT 1 [facility] PEN 75 0-13 ML UNDER ity of mg/mL PnIj 00:00: THE SKIN [place] EVERY 2 Medical (TWO) Branch WEEKS. PRALUENT 2021-07 Yes [id number] 75mg INJECT 1 [facility] PEN 75 0-13 ML UNDER ity of mg/mL PnIj 00:00: THE SKIN [place] 00 EVERY 2 Medical (TWO) Branch WEEKS. PRALUENT 2021-07 Yes [id number] 75mg INJECT 1 [facility] PEN 75 0-13 ML UNDER ity of mg/mL PnIj 00:00: THE SKIN [place] 00 EVERY 2 Medical (TWO) Branch WEEKS. PRALUENT 2021-07 Yes [id number] 75mg INJECT 1 [facility] PEN 75 0-13 ML UNDER ity of mg/mL PnIj 00:00: THE SKIN [place] 00 EVERY 2 Medical (TWO) Branch WEEKS. PRALUENT 2021-07 Yes [id number] 75mg INJECT 1 [facility] PEN 75 0-13 ML UNDER ity of mg/mL PnIj 00:00: THE SKIN [place] EVERY 2 Medical (TWO) Branch WEEKS. PRALUENT 2021-07 Yes [id number] 75mg INJECT 1 [facility] PEN 75 0-13 ML UNDER ity of mg/mL PnIj 00:00: THE SKIN [place] 00 EVERY 2 Medical (TWO) Branch WEEKS. PRALUENT 2021-07 Yes [id number] 75mg INJECT 1 [facility] PEN 75 0-13 ML UNDER ity of mg/mL PnIj 00:00: THE SKIN [place] EVERY 2 Medical (TWO) Branch WEEKS. PRALUENT 2021-07 Yes [id number] 75mg INJECT 1 [facility] PEN 75 0-13 ML UNDER ity of mg/mL PnIj 00:00: THE SKIN [place] 00 EVERY 2 Medical (TWO) Branch WEEKS. PRALUENT 2021-07 Yes [id number] 75mg INJECT 1 [facility] PEN 75 0-13 ML UNDER ity of mg/mL PnIj 00:00: THE SKIN [place] 00 EVERY 2 Medical (TWO) Branch WEEKS. PRALUENT 2021-07 Yes [id number] 75mg INJECT 1 [facility] PEN 75 0-13 ML UNDER ity of mg/mL PnIj 00:00: THE SKIN [place] 00 EVERY 2 Medical (TWO) Branch WEEKS. PRALUENT 2021-07- No [id number] 75mg INJECT 1 [facility] PEN 75 0-13 05-01 ML UNDER ity of mg/mL PnIj 00:00: 00:00 THE SKIN [place] 00 :00 EVERY 2 Medical (TWO) Branch WEEKS. HYDROCHLORO Yes 12.5mg Take 12.5 Univers THIAZIDE 9-26 mg by ity of ORAL 14:13: mouth. [address] HYDROCHLORO 2021-0 Yes 12.5mg Take 12.5 [facility] THIAZIDE 9-26 mg by ity of ORAL 14:13: mouth. [address] HYDROCHLORO 0 Yes 12.5mg Take 12.5 [facility] THIAZIDE 9-26 mg by ity of ORAL 14:13: mouth. [address] HYDROCHLORO 0 Yes 12.5mg Take 12.5 [facility] THIAZIDE 9-26 mg by ity of ORAL 14:13: mouth. [address] HYDROCHLORO 0 Yes 12.5mg Take 12.5 [facility] THIAZIDE 9-26 mg by ity of ORAL 14:13: mouth. [address] HYDROCHLORO 2021-0 Yes 12.5mg Take 12.5 [facility] THIAZIDE 9-26 mg by ity of ORAL 14:13: mouth. [address] aspirin 81 0 Yes [id number] 81mg Take 81 mg Univers mg tablet 9-26 by mouth ity of 14:13: daily. [address] aspirin 81 2021-0 Yes [id number] 81mg Take 81 mg Univers mg tablet 9-26 by mouth ity of 14:13: daily. [address] aspirin 81 0 Yes [id number] 81mg Take 81 mg Univers mg tablet 9-26 by mouth ity of 14:13: daily. [address] aspirin 81 2021-0 Yes [id number] 81mg Take 81 mg Univers mg tablet 9-26 by mouth ity of 14:13: daily. [address] aspirin 81 2021-0 Yes [id number] 81mg Take 81 mg Univers mg tablet 9-26 by mouth ity of 14:13: daily. [address] aspirin 81 2021-0 Yes [id number] 81mg Take 81 mg Univers mg tablet 9-26 by mouth ity of 14:13: daily. [address] aspirin 81 2021-0 Yes [id number] 81mg Take 81 mg Univers mg tablet 9-14 by mouth ity of 10:06: daily. [address] vitamin E 0 Yes 200U Take 200 Univ ers 200 unit 9-14 Units by ity of capsule 10:06: mouth [place] [address] daily. [facility] HYDROCHLORO 0 Yes 12.5mg Take 12.5 [facility] THIAZIDE 9-14 mg by ity of ORAL 10:06: mouth. [address] aspirin 81 2021-0 Yes [id number] 81mg Take 81 mg Univers mg tablet 9-14 by mouth ity of 10:06: daily. Medical Branch vitamin E 2021-0 Yes 200U Take 200 Univ ers 200 unit 9-14 Units by ity of capsule 10:06: mouth [place] 55 daily. Medical Branch HYDROCHLORO 2021-0 Yes 12.5mg Take 12.5 [facility] THIAZIDE 9-14 mg by ity of ORAL 10:06: mouth. Medical Branch aspirin 81 2021-0 Yes [id number] 81mg Take 81 mg Univers mg tablet [...] [place] 55 daily. Medical Branch vitamin E 0 Yes 200U Take 200 [...] [place] 55 daily. Medical Branch vitamin E 2022-0 Yes 200U Take 200 Univ ers 200 unit 9-14 Units by ity of capsule 10:06: mouth [place] 55 daily. Medical Branch vitamin E 0 Yes 200U Take 200 Univ ers 200 unit 9-14 Units by ity of capsule 10:06: mouth [place] 55 daily. Medical Branch vitamin E 0 Yes 200U Take 200 Univ ers 200 unit 9-14 Units by ity of capsule 10:06: mouth [place] 55 daily. Medical Branch vitamin E 0 Yes 200U Take 200 Univ ers 200 unit 9-14 Units by ity of capsule 10:06: mouth [place] 55 daily. Medical Branch vitamin E 0 Yes 200U Take 200 Univ ers 200 unit 9-14 Units by ity of capsule 10:06: mouth [place] 55 daily. Medical Branch vitamin E 0 Yes 200U Take 200 Univ ers 200 unit 9-14 Units by ity of capsule 10:06: mouth [place] 55 daily. Medical Branch vitamin E 0 Yes 200U Take 200 Univ ers 200 unit 9-14 Units by ity of capsule 10:06: mouth [place] 55 daily. Medical Branch vitamin E 0 Yes 200U Take 200 Univ ers 200 unit 9-14 Units by ity of capsule 10:06: mouth [place] 55 daily. Medical Branch vitamin E 0 Yes 200U Take 200 Univ ers 200 unit 9-14 Units by ity of capsule 10:06: mouth [place] 55 daily. Medical Branch vitamin E 0 Yes 200U Take 200 Univ ers 200 unit 9-14 Units by ity of capsule 10:06: mouth [place] 55 daily. Medical Branch vitamin E 0 Yes 200U Take 200 Univ ers 200 unit 9-14 Units by ity of capsule 10:06: mouth [place] 55 daily. Medical Branch vitamin E 0 Yes 200U Take 200 [...] [place] 55 daily. Medical Branch vitamin E 2022-0 Yes 200U Take 200 Univ ers 200 unit 9-14 Units by ity of capsule 10:06: mouth [place] 55 daily. Medical Branch CLOPIDOGREL 2022-0 Yes [id number] TAKE 1 [facility] 75 mg 7-19 TABLET BY ity of tablet 00:00: MOUTH [place] 00 EVERY DAY Medical Branch CLOPIDOGREL 2022-0 Yes [id number] TAKE 1 [facility] 75 mg 7-19 TABLET BY ity of tablet 00:00: MOUTH [place] 00 EVERY DAY Medical Branch CLOPIDOGREL 2022-0 Yes [id number] TAKE 1 [facility] 75 mg 7-19 TABLET BY ity of tablet 00:00: MOUTH [place] 00 EVERY DAY Medical Branch CLOPIDOGREL 2022-0 Yes [id number] TAKE 1 [facility] 75 mg 7-19 TABLET BY ity of tablet 00:00: MOUTH [place] 00 EVERY DAY Medical Branch CLOPIDOGREL 2022-0 Yes [id number] TAKE 1 [facility] 75 mg 7-19 TABLET BY ity of tablet 00:00: MOUTH [place] 00 EVERY DAY Medical Branch CLOPIDOGREL 2022-0 Yes [id number] TAKE 1 [facility] 75 mg 7-19 TABLET BY ity of tablet 00:00: MOUTH [place] 00 EVERY DAY Medical Branch CLOPIDOGREL 2022-0 Yes [id number] TAKE 1 [facility] 75 mg 7-19 TABLET BY ity of tablet 00:00: MOUTH [place] 00 EVERY DAY Medical Branch CLOPIDOGREL 2022-0 Yes [id number] TAKE 1 [facility] 75 mg 7-19 TABLET BY ity of tablet 00:00: MOUTH [place] 00 EVERY DAY Medical Branch CLOPIDOGREL 2022-0 Yes [id number] TAKE 1 [facility] 75 mg 7-19 TABLET BY ity of tablet 00:00: MOUTH [place] 00 EVERY DAY Medical Branch CLOPIDOGREL 2022-0 Yes [id number] TAKE 1 Univers 75 mg 7-19 TABLET BY ity of tablet 00:00: MOUTH [place] 00 EVERY DAY Medical Branch CLOPIDOGREL 2022-0 Yes [id number] TAKE 1 [facility] 75 mg 7-19 TABLET BY ity of tablet 00:00: MOUTH [place] 00 EVERY DAY Medical Branch CLOPIDOGREL 2022-0 Yes [id number] TAKE 1 [facility] 75 mg 7-19 TABLET BY ity of tablet 00:00: MOUTH [place] 00 EVERY DAY Medical Branch CLOPIDOGREL 2022-0 Yes [id number] TAKE 1 Univers 75 mg 7-19 TABLET BY ity of tablet 00:00: MOUTH [place] 00 EVERY DAY Medical Branch CLOPIDOGREL 2022-0 Yes [id number] TAKE 1 [facility] 75 mg 7-19 TABLET BY ity of tablet 00:00: MOUTH [place] 00 EVERY DAY Medical Branch CLOPIDOGREL 2022-0 Yes [id number] TAKE 1 [facility] 75 mg 7-19 TABLET BY ity of tablet 00:00: MOUTH [place] 00 EVERY DAY Medical Branch CLOPIDOGREL 2022-0 Yes [id number] TAKE 1 [facility] 75 mg 7-19 TABLET BY ity of tablet 00:00: MOUTH 00 EVERY DAY Medical Branch CLOPIDOGREL 2022-0 Yes [id number] TAKE 1 [facility] 75 mg 7-19 TABLET BY ity of tablet 00:00: MOUTH 00 EVERY DAY Medical Branch CLOPIDOGREL 2022-0 Yes [id number] TAKE 1 [facility] 75 mg 7-19 TABLET BY ity of tablet 00:00: MOUTH [place] 00 EVERY DAY Medical Branch CLOPIDOGREL 2022-0 Yes [id number] TAKE 1 [facility] 75 mg 7-19 TABLET BY ity of tablet 00:00: MOUTH [place] EVERY DAY Medical Branch CLOPIDOGREL 2022-0 Yes [id number] TAKE 1 [facility] 75 mg 7-19 TABLET BY ity of tablet 00:00: MOUTH 00 EVERY DAY Medical Branch CLOPIDOGREL 2022-0 Yes [id number] TAKE 1 [facility] 75 mg 7-19 TABLET BY ity of tablet 00:00: MOUTH [place] 00 EVERY DAY Medical Branch CLOPIDOGREL 2022-0 Yes [id number] TAKE 1 [facility] 75 mg 7-19 TABLET BY ity of tablet 00:00: MOUTH [place] 00 EVERY DAY Medical Branch CLOPIDOGREL 2022-0 Yes [id number] TAKE 1 [facility] 75 mg 7-19 TABLET BY ity of tablet 00:00: MOUTH [place] 00 EVERY DAY Medical Branch CLOPIDOGREL 2022-0 Yes [id number] TAKE 1 [facility] 75 mg 7-19 TABLET BY ity of tablet 00:00: MOUTH [place] 00 EVERY DAY Medical Branch CLOPIDOGREL 2022-0 Yes [id number] TAKE 1 [facility] 75 mg 7-19 TABLET BY ity of tablet 00:00: MOUTH [place] 00 EVERY DAY Medical Branch CLOPIDOGREL 2022-0 Yes [id number] TAKE 1 [facility] 75 mg 7-19 TABLET BY ity of tablet 00:00: MOUTH [place] 00 EVERY DAY Medical Branch CLOPIDOGREL 2022-0 Yes [id number] TAKE 1 [facility] 75 mg 7-19 TABLET BY ity of tablet 00:00: MOUTH [place] 00 EVERY DAY Medical Branch CLOPIDOGREL 2022-0 Yes [id number] TAKE 1 [facility] 75 mg 7-19 TABLET BY ity of tablet 00:00: MOUTH 00 EVERY DAY Medical Branch CLOPIDOGREL 2022-0 Yes [id number] TAKE 1 [facility] 75 mg 7-19 TABLET BY ity of tablet 00:00: MOUTH 00 EVERY DAY Medical Branch CLOPIDOGREL 2022-0 Yes [id number] TAKE 1 [facility] 75 mg 7-19 TABLET BY ity of tablet 00:00: MOUTH [place] EVERY DAY Medical Branch CLOPIDOGREL 2022-0 Yes [id number] TAKE 1 [facility] 75 mg 7-19 TABLET BY ity of tablet 00:00: MOUTH 00 EVERY DAY Medical Branch CLOPIDOGREL 2022-0 Yes [id number] TAKE 1 [facility] 75 mg 7-19 TABLET BY ity of tablet 00:00: [facility] EVERY DAY Medical Branch CLOPIDOGREL 2022-0 Yes [id number] TAKE 1 Univers 75 mg 7-19 TABLET BY ity of tablet 00:00: [facility] EVERY DAY Medical Branch CLOPIDOGREL 2022-0 Yes [id number] TAKE 1 Univers 75 mg 7-19 TABLET BY ity of tablet 00:00: MOUTH EVERY DAY Medical Branch CLOPIDOGREL 2022-0 Yes [id number] TAKE 1 [facility] 75 mg 7-19 TABLET BY ity of tablet 00:00: [facility] EVERY DAY Medical Branch CLOPIDOGREL 2022-0 Yes [id number] TAKE 1 Univers 75 mg 7-19 TABLET BY ity of tablet 00:00: [facility] 00 EVERY DAY Medical Branch CLOPIDOGREL 2022-0 Yes [id number] TAKE 1 Univers 75 mg 7-19 TABLET BY ity of tablet 00:00: [facility] EVERY DAY Medical Branch CLOPIDOGREL 2022-0 Yes [id number] TAKE 1 [facility] 75 mg 7-19 TABLET BY ity of tablet 00:00: MOUTH 00 EVERY DAY Medical Branch CLOPIDOGREL 2022-0 Yes [id number] TAKE 1 [facility] 75 mg 7-19 TABLET BY ity of tablet 00:00: MOUTH [place] 00 EVERY DAY Medical Branch CLOPIDOGREL 2022-0 Yes [id number] TAKE 1 [facility] 75 mg 7-19 TABLET BY ity of tablet 00:00: MOUTH [place] 00 EVERY DAY Medical Branch CLOPIDOGREL 2022-0 Yes [id number] TAKE 1 [facility] 75 mg 7-19 TABLET BY ity of tablet 00:00: [facility] EVERY DAY Medical Branch CLOPIDOGREL 2022-0 Yes [id number] TAKE 1 [facility] 75 mg 7-19 TABLET BY ity of tablet 00:00: MOUTH EVERY DAY Medical Branch gabapentin 2022-0 Yes [id number] 300mg Take 1 [facility] 300 mg 5-06 capsule by ity of capsule 00:00: mouth (three) Medical times Branch daily. gabapentin 2022-0 Yes [id number] 300mg Take 1 [facility] 300 mg 5-06 capsule by ity of capsule 00:00: mouth (three) Medical times Branch daily. gabapentin 2022-0 Yes [id number] 300mg Take 1 [facility] 300 mg 5-06 capsule by ity of capsule 00:00: mouth (three) Medical times Branch daily. gabapentin 2022-0 Yes [id number] 300mg Take 1 [facility] 300 mg 5-06 capsule by ity of capsule 00:00: mouth () Medical times Branch daily. gabapentin 2022-0 Yes [id number] 300mg Take 1 [facility] 300 mg 5-06 capsule by ity of capsule 00:00: mouth () Medical times Branch daily. gabapentin 2022-0 Yes [id number] 300mg Take 1 [facility] 300 mg 5-06 capsule by ity of capsule 00:00: mouth () Medical times Branch daily. gabapentin 2022-0 Yes [id number] 300mg Take 1 [facility] 300 mg 5-06 capsule by ity of capsule 00:00: mouth () Medical times Branch daily. gabapentin 2022-0 Yes [id number] 300mg Take 1 [facility] 300 mg 5-06 capsule by ity of capsule 00:00: mouth () Medical times Branch daily. gabapentin 2022-0 Yes [id number] 300mg Take 1 [facility] 300 mg 5-06 capsule by ity of capsule 00:00: mouth (three) Medical times Branch daily. gabapentin 2022-0 Yes [id number] 300mg Take 1 [facility] 300 mg 5-06 capsule by ity of capsule 00:00: mouth (three) Medical times Branch daily. gabapentin 2022-0 Yes [id number] 300mg Take 1 [facility] 300 mg 5-06 capsule by ity of capsule 00:00: mouth (three) Medical times Branch daily. gabapentin 2022-0 Yes [id number] 300mg Take 1 [facility] 300 mg 5-06 capsule by ity of capsule 00:00: mouth (three) Medical times Branch daily. gabapentin 2022-0 Yes [id number] 300mg Take 1 [facility] 300 mg 5-06 capsule by [facility] capsule 00:00: mouth (three) Medical times Branch daily. gabapentin 2022-0 Yes [id number] 300mg Take 1 [facility] 300 mg 5-06 capsule by [facility] of capsule 00:00: mouth (three) Medical times Branch daily. gabapentin 2022-0 Yes [id number] 300mg Take 1 [facility] 300 mg 5-06 capsule by [facility] of capsule 00:00: mouth (three) Medical times Branch daily. gabapentin 2022-0 Yes [id number] 300mg Take 1 [facility] 300 mg 5-06 capsule by [facility] of capsule 00:00: mouth (three) Medical times Branch daily. gabapentin 2022-0 Yes [id number] 300mg Take 1 [facility] 300 mg 5-06 capsule by [facility] of capsule 00:00: mouth () Medical times Branch daily. gabapentin 2022-0 Yes [id number] 300mg Take 1 [facility] 300 mg 5-06 capsule by [facility] of capsule 00:00: mouth (three) Medical times Branch daily. gabapentin 2022-0 Yes [id number] 300mg Take 1 [facility] 300 mg 5-06 capsule by [facility] of capsule 00:00: mouth (three) Medical times Branch daily. gabapentin 2022-0 Yes [id number] 300mg Take 1 [facility] 300 mg 5-06 capsule by [facility] of capsule 00:00: mouth (three) Medical times Branch daily. gabapentin 2022-0 Yes [id number] 300mg Take 1 [facility] 300 mg 5-06 capsule by [facility] of capsule 00:00: mouth (three) Medical times Branch daily. gabapentin 2022-0 Yes [id number] 300mg Take 1 [facility] 300 mg 5-06 capsule by [facility] of capsule 00:00: mouth (three) Medical times Branch daily. gabapentin 2022-0 Yes [id number] 300mg Take 1 [facility] 300 mg 5-06 capsule by [facility] of capsule 00:00: mouth (three) Medical times Branch daily. gabapentin 2022-0 Yes [id number] 300mg Take 1 [facility] 300 mg 5-06 capsule by [facility] of capsule 00:00: mouth 3 [place] (three) Medical times Branch daily. gabapentin 2022-0 Yes [id number] 300mg Take 1 [facility] 300 mg 5-06 capsule by [facility] of capsule 00:00: mouth 3 (three) Medical times Branch daily. gabapentin 2022-0 Yes [id number] 300mg Take 1 [facility] 300 mg 5-06 capsule by [facility] of capsule 00:00: mouth 3 [place] (three) Medical times Branch daily. gabapentin 2022-0 Yes [id number] 300mg Take 1 [facility] 300 mg 5-06 capsule by [facility] of capsule 00:00: mouth [place] (three) Medical times Branch daily. gabapentin 2022-0 Yes [id number] 300mg Take 1 [facility] 300 mg 5-06 capsule by [facility] of capsule 00:00: mouth [place] (three) Medical times Branch daily. gabapentin 2022-0 Yes [id number] 300mg Take 1 [facility] 300 mg 5-06 capsule by [facility] of capsule 00:00: mouth [place] (three) Medical times Branch daily. gabapentin 2022-0 Yes [id number] 300mg Take 1 [facility] 300 mg 5-06 capsule by [facility] of capsule 00:00: mouth [place] (three) Medical times Branch daily. gabapentin 2022-0 Yes [id number] 300mg Take 1 [facility] 300 mg 5-06 capsule by [facility] of capsule 00:00: mouth [place] (three) Medical times Branch daily. gabapentin 2022-0 Yes [id number] 300mg Take 1 [facility] 300 mg 5-06 capsule by [facility] of capsule 00:00: mouth [place] (three) Medical times Branch daily. gabapentin 2022-0 2023- No [id number] 300mg Take 1 [facility] 300 mg 5-06 05-18 capsule by [facility] of capsule 00:00: 00:00 mouth 3 [place] 00 :00 (three) Medical times Branch daily. gabapentin 2022-0 2023- No [id number] 300mg Take 1 [facility] 300 mg 5-06 05-18 capsule by [facility] of capsule 00:00: 00:00 mouth 3 [place] 00 :00 (three) Medical times Branch daily. alirocumab 2022-0 Yes [id number] 75mg inject 1 [facility] (PRALUENT 4-07 mL under ity of PEN) 75 00:00: the skin [place] mg/mL PnIj 00 every 2 Medica l (two) Branch weeks. alirocumab 2021-0 Yes [id number] 75mg inject 1 [facility] (PRALUENT 4-07 mL under ity of PEN) 75 00:00: the skin [place] mg/mL PnIj 00 every 2 Medica l (two) Branch weeks. alirocumab 2021-0 Yes [id number] 75mg inject 1 [facility] (PRALUENT 4-07 mL under ity of PEN) 75 00:00: the skin [place] mg/mL PnIj 00 every 2 Medica l (two) Branch weeks. alirocumab 2021-0 Yes [id number] 75mg inject 1 [facility] (PRALUENT 4-07 mL under ity of PEN) 75 00:00: the skin [place] mg/mL PnIj 00 every 2 Medica l (two) Branch weeks. alirocumab 2021-0 Yes [id number] 75mg inject 1 [facility] (PRALUENT 4-07 mL under ity of PEN) 75 00:00: the skin [place] mg/mL PnIj 00 every 2 Medica l (two) Branch weeks. alirocumab 2021-0 Yes [id number] 75mg inject 1 [facility] (PRALUENT 4-07 mL under ity of PEN) 75 00:00: the skin [place] mg/mL PnIj 00 every 2 Medica l (two) Branch weeks. alirocumab 2- No [id number] 75mg inject 1 [facility] (PRALUENT 4-07 10-13 mL under ity o f PEN) 75 00:00: 00:00 the skin [place] mg/mL PnIj 00 :00 every 2 Medica l (two) Branch weeks. alirocumab 2021-0 2- No [id number] 75mg inject 1 [facility] (PRALUENT 4-07 10-13 mL under ity o f PEN) 75 00:00: 00:00 the skin [place] mg/mL PnIj 00 :00 every 2 Medica l (two) Branch weeks. omeprazole 2021-0 Yes [id number] 20mg Take 1 [facility] 20 mg 3-16 capsule by [facility] of capsule 00:00: mouth [place] 00 daily. Medical Branch metoprolol 2021-0 Yes [id number] 25mg Take 1 [facility] tartrate 25 3-16 tablet by [facility]y of mg tablet 00:00: mouth (two) Medical times Branch daily. omeprazole 2021-0 Yes [id number] 20mg Take 1 [facility] 20 mg 3-16 capsule by [facility] of capsule 00:00: mouth 00 daily. Medical Branch metoprolol 2021-0 Yes [id number] 25mg Take 1 [facility] tartrate 25 3-16 tablet by [facility] of mg tablet 00:00: mouth (two) Medical times Branch daily. omeprazole 2021-0 Yes [id number] 20mg Take 1 [facility] 20 mg 3-16 capsule by [facility] of capsule 00:00: mouth 00 daily. Medical Branch metoprolol 2021-0 Yes [id number] 25mg Take 1 [facility] tartrate 25 3-16 tablet by [facility]y of mg tablet 00:00: mouth (two) Medical times Branch daily. omeprazole 2021-0 Yes [id number] 20mg Take 1 [facility] 20 mg 3-16 capsule by [facility] of capsule 00:00: mouth 00 daily. Medical Branch metoprolol 2021-0 Yes [id number] 25mg Take 1 [facility] tartrate 25 3-16 tablet by [facility]y of mg tablet 00:00: mouth (two) Medical times Branch daily. omeprazole 2021-0 Yes [id number] 20mg Take 1 [facility] 20 mg 3-16 capsule by [facility] of capsule 00:00: mouth 00 daily. Medical Branch metoprolol 2021-0 Yes [id number] 25mg Take 1 [facility] tartrate 25 3-16 tablet by [facility]y of mg tablet 00:00: mouth (two) Medical times Branch daily. omeprazole 2021-0 Yes [id number] 20mg Take 1 [facility] 20 mg 3-16 capsule by [facility] of capsule 00:00: mouth 00 daily. Medical Branch metoprolol 2021-0 Yes [id number] 25mg Take 1 [facility] tartrate 25 3-16 tablet by [facility]y of mg tablet 00:00: mouth (two) Medical times Branch daily. omeprazole 2-0 Yes [id number] 20mg Take 1 [facility] 20 mg 3-16 capsule by [facility] of capsule 00:00: mouth 00 daily. Medical Branch metoprolol 2021-0 Yes [id number] 25mg Take 1 [facility] tartrate 25 3-16 tablet by ity of mg tablet 00:00: mouth (two) Medical times Branch daily. omeprazole 2021-0 Yes [id number] 20mg Take 1 [facility] 20 mg 3-16 capsule by [facility] of capsule 00:00: mouth 00 daily. Medical Branch metoprolol 2021-0 Yes [id number] 25mg Take 1 [facility] tartrate 25 3-16 tablet by ity of mg tablet 00:00: mouth (two) Medical times Branch daily. omeprazole 2021-0 Yes [id number] 20mg Take 1 [facility] 20 mg 3-16 capsule by [facility] of capsule 00:00: mouth 00 daily. Medical Branch metoprolol 2021-0 Yes [id number] 25mg Take 1 [facility] tartrate 25 3-16 tablet by [facility]y of mg tablet 00:00: mouth (two) Medical times Branch daily. omeprazole 2021-0 Yes [id number] 20mg Take 1 [facility] 20 mg 3-16 capsule by [facility] of capsule 00:00: mouth 00 daily. Medical Branch metoprolol 2021-0 Yes [id number] 25mg Take 1 [facility] tartrate 25 3-16 tablet by ity of mg tablet 00:00: mouth (two) Medical times Branch daily. omeprazole 2021-0 Yes [id number] 20mg Take 1 [facility] 20 mg 3-16 capsule by [facility] of capsule 00:00: mouth 00 daily. Medical Branch metoprolol 2021-0 Yes [id number] 25mg Take 1 [facility] tartrate 25 3-16 tablet by [facility]y of mg tablet 00:00: mouth (two) Medical times Branch daily. omeprazole 2021-0 Yes [id number] 20mg Take 1 [facility] 20 mg 3-16 capsule by [facility] of capsule 00:00: mouth 00 daily. Medical Branch metoprolol 2021-0 Yes [id number] 25mg Take 1 [facility] tartrate 25 3-16 tablet by ity of mg tablet 00:00: mouth (two) Medical times Branch daily. omeprazole 2-0 Yes [id number] 20mg Take 1 [facility] 20 mg 3-16 capsule by [facility] of capsule 00:00: mouth 00 daily. Medical Branch metoprolol 2021-0 Yes [id number] 25mg Take 1 [facility] tartrate 25 3-16 tablet by ity of mg tablet 00:00: mouth (two) Medical times Branch daily. omeprazole 2-0 Yes [id number] 20mg Take 1 [facility] 20 mg 3-16 capsule by [facility]y of capsule 00:00: mouth 00 daily. Medical Branch metoprolol 2021-0 Yes [id number] 25mg Take 1 [facility] tartrate 25 3-16 tablet by ity of mg tablet 00:00: mouth (two) Medical times Branch daily. omeprazole 2021-0 Yes [id number] 20mg Take 1 [facility] 20 mg 3-16 capsule by ity of capsule 00:00: mouth 00 daily. Medical Branch metoprolol 2021-0 Yes [id number] 25mg Take 1 [facility] n[facility] tartrate 25 3-16 tablet by ity of mg tablet 00:00: mouth (two) Medical times Branch daily. omeprazole 2021-0 Yes [id number] 20mg Take 1 [facility] 20 mg 3-16 capsule by [facility] of capsule 00:00: mouth 00 daily. Medical Branch metoprolol 2021-0 Yes [id number] 25mg Take 1 [facility] nivers tartrate 25 3-16 tablet by ity of mg tablet 00:00: mouth (two) Medical times Branch daily. omeprazole 2021-0 Yes [id number] 20mg Take 1 [facility] 20 mg 3-16 capsule by ity of capsule 00:00: mouth 00 daily. Medical Branch metoprolol 2021-0 Yes [id number] 25mg Take 1 [facility] nivers tartrate 25 3-16 tablet by ity of mg tablet 00:00: mouth (two) Medical times Branch daily. omeprazole 2-0 Yes [id number] 20mg Take 1 [facility] 20 mg 3-16 capsule by ity of capsule 00:00: mouth 00 daily. Medical Branch metoprolol 2021-0 Yes [id number] 25mg Take 1 [facility] nivers tartrate 25 3-16 tablet by ity of mg tablet 00:00: mouth (two) Medical times Branch daily. omeprazole 2022-0 Yes [id number] 20mg Take 1 [facility] 20 mg 3-16 capsule by [facility]y of capsule 00:00: mouth 00 daily. Medical Branch metoprolol 2021-0 Yes [id number] 25mg Take 1 [facility] nivers tartrate 25 3-16 tablet by ity of mg tablet 00:00: mouth (two) Medical times Branch daily. omeprazole 2-0 Yes [id number] 20mg Take 1 [facility] 20 mg 3-16 capsule by [facility] of capsule 00:00: mouth 00 daily. Medical Branch metoprolol 2021-0 Yes [id number] 25mg Take 1 [facility] nivers tartrate 25 3-16 tablet by ity of mg tablet 00:00: mouth (two) Medical times Branch daily. omeprazole 2021-0 Yes [id number] 20mg Take 1 [facility] 20 mg 3-16 capsule by ity of capsule 00:00: mouth 00 daily. Medical Branch metoprolol 2021-0 Yes [id number] 25mg Take 1 [facility] nivers tartrate 25 3-16 tablet by ity of mg tablet 00:00: mouth (two) Medical times Branch daily. omeprazole 2021-0 Yes [id number] 20mg Take 1 [facility] 20 mg 3-16 capsule by ity of capsule 00:00: mouth 00 daily. Medical Branch metoprolol 2021-0 Yes [id number] 25mg Take 1 [facility] nivers tartrate 25 3-16 tablet by ity of mg tablet 00:00: mouth (two) Medical times Branch daily. omeprazole 2021-0 Yes [id number] 20mg Take 1 [facility] 20 mg 3-16 capsule by [facility]y of capsule 00:00: mouth daily. Medical Branch metoprolol 2021-0 Yes [id number] 25mg Take 1 [facility] nivers tartrate 25 3-16 tablet by ity of mg tablet 00:00: mouth (two) Medical times Branch daily. omeprazole 2-0 Yes [id number] 20mg Take 1 [facility] 20 mg 3-16 capsule by ity of capsule 00:00: mouth 00 daily. Medical Branch metoprolol 2021-0 Yes [id number] 25mg Take 1 [facility] nivers tartrate 25 3-16 tablet by ity of mg tablet 00:00: mouth (two) Medical times Branch daily. omeprazole 2022-0 Yes [id number] 20mg Take 1 [facility] 20 mg 3-16 capsule by [facility]y of capsule 00:00: mouth 00 daily. Medical Branch metoprolol 2021-0 Yes [id number] 25mg Take 1 [facility] nivers tartrate 25 3-16 tablet by ity of mg tablet 00:00: mouth (two) Medical times Branch daily. omeprazole 2021-0 Yes [id number] 20mg Take 1 [facility] 20 mg 3-16 capsule by ity of capsule 00:00: mouth 00 daily. Medical Branch metoprolol 2021-0 Yes [id number] 25mg Take 1 [facility] nivers tartrate 25 3-16 tablet by ity of mg tablet 00:00: mouth (two) Medical times Branch daily. omeprazole 2021-0 Yes [id number] 20mg Take 1 [facility] 20 mg 3-16 capsule by [facility]y of capsule 00:00: mouth 00 daily. Medical Branch metoprolol 2021-0 Yes [id number] 25mg Take 1 [facility] nivers tartrate 25 3-16 tablet by ity of mg tablet 00:00: mouth (two) Medical times Branch daily. omeprazole 2021-0 Yes [id number] 20mg Take 1 [facility] 20 mg 3-16 capsule by [facility]y of capsule 00:00: mouth daily. Medical Branch metoprolol 2021-0 Yes [id number] 25mg Take 1 [facility] nivers tartrate 25 3-16 tablet by ity of mg tablet 00:00: mouth (two) Medical times Branch daily. metoprolol 2021-0 Yes [id number] 25mg Take 1 [facility] nivers tartrate 25 3-16 tablet by ity of mg tablet 00:00: mouth (two) Medical times Branch daily. metoprolol 2021-0 Yes [id number] 25mg Take 1 [facility] nivers tartrate 25 3-16 tablet by ity of mg tablet 00:00: mouth (two) Medical times Branch daily. metoprolol 2021-0 2022- No [id number] 25mg Take 1 [facility] tartrate 25 3-16 04-20 tablet by it y of mg tablet 00:00: 00:00 mouth 2 [place] 00 :[place] (two) Medical times Branch daily. omeprazole 2021-0 2022- No [id number] 20mg Take 1 [facility] 20 mg 3-16 03 capsule by [facility] of capsule 00:00: 00:00 mouth [place] 00 :00 daily. Medical Branch latanoprost 2020-07 Yes [id number] 1[drp] Place 1 [facility] 0.005 % 0-28 Drop in ity of ophthalmic 00:00: both eyes [place] drops 00 at Medical bedtime. Branch dorzolamide 2020-07 Yes [id number] 1[drp] Place 1 [facility] -timoloL 0-28 Drop in ity of 22.3-6.8 00:00: both eyes [place] mg/mL 00 2 (two) Medical ophthalmic times Branch drops daily. latanoprost 2020-07 Yes [id number] 1[drp] Place 1 [facility] 0.005 % 0-28 Drop in [facility]y of ophthalmic 00:00: both eyes [place] drops 00 at Medical bedtime. Branch dorzolamide 2020-07 Yes [id number] 1[drp] Place 1 [facility] -timoloL 0-28 Drop in ity of 22.3-6.8 00:00: both eyes [place] mg/mL 00 2 (two) Medical ophthalmic times Branch drops daily. latanoprost 2020-07 Yes [id number] 1[drp] Place 1 [facility] 0.005 % 0-28 Drop in ity of ophthalmic 00:00: both eyes [place] drops 00 at Medical bedtime. Branch dorzolamide 2020-07 Yes [id number] 1[drp] Place 1 [facility] -timoloL 0-28 Drop in ity of 22.3-6.8 00:00: both eyes [place] mg/mL 00 2 (two) Medical ophthalmic times Branch drops daily. latanoprost 2020-07 Yes [id number] 1[drp] Place 1 [facility] 0.005 % 0-28 Drop in ity of ophthalmic 00:00: both eyes [place] drops 00 at Medical bedtime. Branch dorzolamide 2020-07 Yes [id number] 1[drp] Place 1 [facility] -timoloL 0-28 Drop in ity of 22.3-6.8 00:00: both eyes [place] mg/mL 00 2 (two) Medical ophthalmic times Branch drops daily. latanoprost 2020-07 Yes [id number] 1[drp] Place 1 [facility] 0.005 % 0-28 Drop in ity of ophthalmic 00:00: both eyes [place] drops 00 at Medical bedtime. Branch dorzolamide 2020-07 Yes [id number] 1[drp] Place 1 [facility] -timoloL 0-28 Drop in ity of 22.3-6.8 00:00: both eyes [place] mg/mL 00 2 (two) Medical ophthalmic times Branch drops daily. latanoprost 2020-07 Yes [id number] 1[drp] Place 1 [facility] 0.005 % 0-28 Drop in ity of ophthalmic 00:00: both eyes [place] drops 00 at Medical bedtime. Branch dorzolamide 2020-07 Yes [id number] 1[drp] Place 1 [facility] -timoloL 0-28 Drop in ity of 22.3-6.8 00:00: both eyes [place] mg/mL 00 2 (two) Medical ophthalmic times Branch drops daily. latanoprost 2020-07 Yes [id number] 1[drp] Place 1 [facility] 0.005 % 0-28 Drop in ity of ophthalmic 00:00: both eyes [place] drops 00 at Medical bedtime. Branch dorzolamide 2020-07 Yes [id number] 1[drp] Place 1 [facility] -timoloL 0-28 Drop in ity of 22.3-6.8 00:00: both eyes [place] mg/mL 00 2 (two) Medical ophthalmic times Branch drops daily. latanoprost 2020-07 Yes [id number] 1[drp] Place 1 [facility] 0.005 % 0-28 Drop in ity of ophthalmic 00:00: both eyes [place] drops 00 at Medical bedtime. Branch dorzolamide 2020-07 Yes [id number] 1[drp] Place 1 [facility] -timoloL 0-28 Drop in ity of 22.3-6.8 00:00: both eyes [place] mg/mL 00 2 (two) Medical ophthalmic times Branch drops daily. latanoprost 2020-07 Yes [id number] 1[drp] Place 1 [facility] 0.005 % 0-28 Drop in ity of ophthalmic 00:00: both eyes [place] drops 00 at Medical bedtime. Branch dorzolamide 2020-07 Yes [id number] 1[drp] Place 1 [facility] -timoloL 0-28 Drop in ity of 22.3-6.8 00:00: both eyes [place] mg/mL 00 2 (two) Medical ophthalmic times Branch drops daily. latanoprost 2020-07 Yes [id number] 1[drp] Place 1 [facility] 0.005 % 0-28 Drop in ity of ophthalmic 00:00: both eyes [place] drops 00 at Medical bedtime. Branch dorzolamide 2020-07 Yes [id number] 1[drp] Place 1 [facility] -timoloL 0-28 Drop in ity of 22.3-6.8 00:00: both eyes [place] mg/mL 00 2 (two) Medical ophthalmic times Branch drops daily. latanoprost 2020-07 Yes [id number] 1[drp] Place 1 [facility] 0.005 % 0-28 Drop in [facility]y of ophthalmic 00:00: both eyes [place] drops 00 at Medical bedtime. Branch dorzolamide 2020-07 Yes [id number] 1[drp] Place 1 [facility] -timoloL 0-28 Drop in ity of 22.3-6.8 00:00: both eyes [place] mg/mL 00 2 (two) Medical ophthalmic times Branch drops daily. latanoprost 2020-07 Yes [id number] 1[drp] Place 1 [facility] 0.005 % 0-28 Drop in [facility]y of ophthalmic 00:00: both eyes [place] drops 00 at Medical bedtime. Branch dorzolamide 2020-07 Yes [id number] 1[drp] Place 1 [facility] -timoloL 0-28 Drop in ity of 22.3-6.8 00:00: both eyes [place] mg/mL 00 2 (two) Medical ophthalmic times Branch drops daily. latanoprost 2020-07 Yes [id number] 1[drp] Place 1 [facility] 0.005 % 0-28 Drop in [facility]y of ophthalmic 00:00: both eyes [place] drops 00 at Medical bedtime. Branch dorzolamide 2020-07 Yes [id number] 1[drp] Place 1 [facility] -timoloL 0-28 Drop in ity of 22.3-6.8 00:00: both eyes [place] mg/mL 00 2 (two) Medical ophthalmic times Branch drops daily. latanoprost 2020-07 Yes [id number] 1[drp] Place 1 [facility] 0.005 % 0-28 Drop in [facility]y of ophthalmic 00:00: both eyes [place] drops 00 at Medical bedtime. Branch dorzolamide 2020-07 Yes [id number] 1[drp] Place 1 [facility] -timoloL 0-28 Drop in ity of 22.3-6.8 00:00: both eyes [place] mg/mL 00 2 (two) Medical ophthalmic times Branch drops daily. latanoprost 2020-07 Yes [id number] 1[drp] Place 1 [facility] 0.005 % 0-28 Drop in [facility]y of ophthalmic 00:00: both eyes [place] drops 00 at Medical bedtime. Branch dorzolamide 2020-07 Yes [id number] 1[drp] Place 1 [facility] -timoloL 0-28 Drop in ity of 22.3-6.8 00:00: both eyes [place] mg/mL 00 2 (two) Medical ophthalmic times Branch drops daily. latanoprost 2020-07 Yes [id number] 1[drp] Place 1 [facility] 0.005 % 0-28 Drop in [facility]y of ophthalmic 00:00: both eyes [place] drops 00 at Medical bedtime. Branch dorzolamide 2020-07 Yes [id number] 1[drp] Place 1 [facility] -timoloL 0-28 Drop in ity of 22.3-6.8 00:00: both eyes [place] mg/mL 00 2 (two) Medical ophthalmic times Branch drops daily. latanoprost 2020-07 Yes [id number] 1[drp] Place 1 [facility] 0.005 % 0-28 Drop in [facility]y of ophthalmic 00:00: both eyes [place] drops 00 at Medical bedtime. Branch dorzolamide 2020-07 Yes [id number] 1[drp] Place 1 [facility] -timoloL 0-28 Drop in ity of 22.3-6.8 00:00: both eyes [place] mg/mL 00 2 (two) Medical ophthalmic times Branch drops daily. latanoprost 2020-07 Yes [id number] 1[drp] Place 1 [facility] 0.005 % 0-28 Drop in ity of ophthalmic 00:00: both eyes [place] drops 00 at Medical bedtime. Branch dorzolamide 2020-07 Yes [id number] 1[drp] Place 1 [facility] -timoloL 0-28 Drop in ity of 22.3-6.8 00:00: both eyes [place] mg/mL 00 2 (two) Medical ophthalmic times Branch drops daily. latanoprost 2020-07 Yes [id number] 1[drp] Place 1 [facility] 0.005 % 0-28 Drop in ity of ophthalmic 00:00: both eyes [place] drops 00 at Medical bedtime. Branch dorzolamide 2020-07 Yes [id number] 1[drp] Place 1 [facility] -timoloL 0-28 Drop in ity of 22.3-6.8 00:00: both eyes [place] mg/mL 00 2 (two) Medical ophthalmic times Branch drops daily. latanoprost 2020-07 Yes [id number] 1[drp] Place 1 [facility] 0.005 % 0-28 Drop in ity of ophthalmic 00:00: both eyes [place] drops 00 at Medical bedtime. Branch dorzolamide 2020-07 Yes [id number] 1[drp] Place 1 [facility] -timoloL 0-28 Drop in ity of 22.3-6.8 00:00: both eyes [place] mg/mL 00 2 (two) Medical ophthalmic times Branch drops daily. latanoprost 2020-07 Yes [id number] 1[drp] Place 1 [facility] 0.005 % 0-28 Drop in ity of ophthalmic 00:00: both eyes [place] drops 00 at Medical bedtime. Branch dorzolamide 2020-07 Yes [id number] 1[drp] Place 1 [facility] -timoloL 0-28 Drop in ity of 22.3-6.8 00:00: both eyes [place] mg/mL 00 2 (two) Medical ophthalmic times Branch drops daily. latanoprost 2020-07 Yes [id number] 1[drp] Place 1 [facility] 0.005 % 0-28 Drop in ity of ophthalmic 00:00: both eyes [place] drops 00 at Medical bedtime. Branch dorzolamide 2020-07 Yes [id number] 1[drp] Place 1 [facility] -timoloL 0-28 Drop in ity of 22.3-6.8 00:00: both eyes [place] mg/mL 00 2 (two) Medical ophthalmic times Branch drops daily. latanoprost 2020-07 Yes [id number] 1[drp] Place 1 [facility] 0.005 % 0-28 Drop in ity of ophthalmic 00:00: both eyes [place] drops 00 at Medical bedtime. Branch dorzolamide 2020-07 Yes [id number] 1[drp] Place 1 [facility] -timoloL 0-28 Drop in ity of 22.3-6.8 00:00: both eyes [place] mg/mL 00 2 (two) Medical ophthalmic times Branch drops daily. latanoprost 2020-07 Yes [id number] 1[drp] Place 1 [facility] 0.005 % 0-28 Drop in ity of ophthalmic 00:00: both eyes [place] drops 00 at Medical bedtime. Branch dorzolamide 2020-07 Yes [id number] 1[drp] Place 1 [facility] -timoloL 0-28 Drop in ity of 22.3-6.8 00:00: both eyes [place] mg/mL 00 2 (two) Medical ophthalmic times Branch drops daily. latanoprost 2020-07 Yes [id number] 1[drp] Place 1 [facility] 0.005 % 0-28 Drop in ity of ophthalmic 00:00: both eyes [place] drops 00 at Medical bedtime. Branch dorzolamide 2020-07 Yes [id number] 1[drp] Place 1 [facility] -timoloL 0-28 Drop in ity of 22.3-6.8 00:00: both eyes [place] mg/mL 00 2 (two) Medical ophthalmic times Branch drops daily. latanoprost 2020-07 Yes [id number] 1[drp] Place 1 [facility] 0.005 % 0-28 Drop in ity of ophthalmic 00:00: both eyes [place] drops 00 at Medical bedtime. Branch dorzolamide 2020-07 Yes [id number] 1[drp] Place 1 [facility] -timoloL 0-28 Drop in ity of 22.3-6.8 00:00: both eyes [place] mg/mL 00 2 (two) Medical ophthalmic times Branch drops daily. latanoprost 2020-07 Yes [id number] 1[drp] Place 1 [facility] 0.005 % 0-28 Drop in ity of ophthalmic 00:00: both eyes [place] drops 00 at Medical bedtime. Branch dorzolamide 2020-07 Yes [id number] 1[drp] Place 1 [facility] -timoloL 0-28 Drop in ity of 22.3-6.8 00:00: both eyes [place] mg/mL 00 2 (two) Medical ophthalmic times Branch drops daily. latanoprost 2020-07 Yes [id number] 1[drp] Place 1 [facility] 0.005 % 0-28 Drop in ity of ophthalmic 00:00: both eyes [place] drops 00 at Medical bedtime. Branch dorzolamide 2020-07 Yes [id number] 1[drp] Place 1 [facility] -timoloL 0-28 Drop in ity of 22.3-6.8 00:00: both eyes [place] mg/mL 00 2 (two) Medical ophthalmic times Branch drops daily. latanoprost 2020-07 Yes [id number] 1[drp] Place 1 [facility] 0.005 % 0-28 Drop in ity of ophthalmic 00:00: both eyes [place] drops 00 at Medical bedtime. Branch dorzolamide 2020-07 Yes [id number] 1[drp] Place 1 [facility] -timoloL 0-28 Drop in ity of 22.3-6.8 00:00: both eyes [place] mg/mL 00 2 (two) Medical ophthalmic times Branch drops daily. latanoprost 2020-07 Yes [id number] 1[drp] Place 1 [facility] 0.005 % 0-28 Drop in ity of ophthalmic 00:00: both eyes [place] drops 00 at Medical bedtime. Branch dorzolamide 2020-07 Yes [id number] 1[drp] Place 1 [facility] -timoloL 0-28 Drop in ity of 22.3-6.8 00:00: both eyes [place] mg/mL 00 2 (two) Medical ophthalmic times Branch drops daily. latanoprost 2020-07 Yes [id number] 1[drp] Place 1 [facility] 0.005 % 0-28 Drop in ity of ophthalmic 00:00: both eyes [place] drops 00 at Medical bedtime. Branch dorzolamide 2020-07 Yes [id number] 1[drp] Place 1 [facility] -timoloL 0-28 Drop in ity of 22.3-6.8 00:00: both eyes [place] mg/mL 00 2 (two) Medical ophthalmic times Branch drops daily. latanoprost 2020-07 Yes [id number] 1[drp] Place 1 [facility] 0.005 % 0-28 Drop in ity of ophthalmic 00:00: both eyes [place] drops 00 at Medical bedtime. Branch dorzolamide 2020-07 Yes [id number] 1[drp] Place 1 [facility] -timoloL 0-28 Drop in ity of 22.3-6.8 00:00: both eyes [place] mg/mL 00 2 (two) Medical ophthalmic times Branch drops daily. latanoprost 2020-07 Yes [id number] 1[drp] Place 1 [facility] 0.005 % 0-28 Drop in ity of ophthalmic 00:00: both eyes [place] drops 00 at Medical bedtime. Branch dorzolamide 2020-07 Yes [id number] 1[drp] Place 1 [facility] -timoloL 0-28 Drop in ity of 22.3-6.8 00:00: both eyes [place] mg/mL 00 2 (two) Medical ophthalmic times Branch drops daily. latanoprost 2020-07 Yes [id number] 1[drp] Place 1 [facility] 0.005 % 0-28 Drop in [facility]y of ophthalmic 00:00: both eyes [place] drops 00 at Medical bedtime. Branch dorzolamide 2020-07 Yes [id number] 1[drp] Place 1 [facility] -timoloL 0-28 Drop in ity of 22.3-6.8 00:[place] mg/mL 00 2 (two) Medical ophthalmic times Branch drops daily. latanoprost 2020-07 Yes [id number] 1[drp] Place [facility] 0.005 % 0-28 Drop in ity of ophthalmic 00:00: [place] drops 00 at Medical bedtime. Branch dorzolamide 2020-07 Yes [id number] 1[drp] Place 1 [facility] -timoloL 0-28 Drop in ity of 22.3-6.8 00:[place]: [place] mg/mL 00 2 (two) Medical ophthalmic times Branch drops daily. latanoprost 2020-07 Yes [id number] 1[drp] Place 1 [facility] 0.005 % 0-28 Drop in [facility]y of ophthalmic 00:00: [place] drops 00 at Medical bedtime. Branch dorzolamide 2020-07 Yes [id number] 1[drp] Place 1 [facility] -timoloL 0-28 Drop in ity of 22.3-6.8 00:[place]: [place] mg/mL 00 2 (two) Medical ophthalmic times Branch drops daily. latanoprost 2020-07 Yes [id number] 1[drp] Place 1 [facility] 0.005 % 0-28 Drop in [facility]y of ophthalmic 00:00: [place] drops 00 at Medical bedtime. Branch dorzolamide 2020-07 Yes [id number] 1[drp] Place 1 [facility] -timoloL 0-28 Drop in ity of 22.3-6.8 00:[place]: [place] mg/mL 00 2 (two) Medical ophthalmic times Branch drops daily. latanoprost 2020-07 Yes [id number] 1[drp] Place 1 [facility] 0.005 % 0-28 Drop in ity of ophthalmic 00:00: [place] drops 00 at Medical bedtime. Branch dorzolamide 2020-07 Yes [id number] 1[drp] Place 1 [facility] -timoloL 0-28 Drop in ity of 22.3-6.8 00:00: [place] mg/mL 00 2 (two) Medical ophthalmic times Branch drops daily. latanoprost 2020-07 Yes [id number] 1[drp] Place 1 [facility] 0.005 % 0-28 Drop in ity of ophthalmic 00:00: [place] drops 00 at Medical bedtime. Branch dorzolamide 2020-07 Yes [id number] 1[drp] Place 1 [facility] -timoloL 0-28 Drop in ity of 22.3-6.8 00:00: [place] mg/mL 00 2 (two) Medical ophthalmic times Branch drops daily. latanoprost 2020-07 Yes [id number] 1[drp] Place 1 [facility] 0.005 % 0-28 Drop in [facility]y of ophthalmic 00:00: [place] drops 00 at Medical bedtime. Branch dorzolamide 2020-07 Yes [id number] 1[drp] Place 1 [facility] -timoloL 0-28 Drop in ity of 22.3-6.8 00:00: [place] mg/mL 00 2 (two) Medical ophthalmic times Branch drops daily. latanoprost 2020-07 Yes [id number] 1[drp] Place 1 [facility] 0.005 % 0-28 Drop in ity of ophthalmic 00:00: [place] drops 00 at Medical bedtime. Branch dorzolamide 2020-07 Yes [id number] 1[drp] Place 1 [facility] -timoloL 0-28 Drop in ity of 22.3-6.8 00:00: [place] mg/mL 00 2 (two) Medical ophthalmic times Branch drops daily. latanoprost 2020-07 Yes [id number] 1[drp] Place 1 [facility] 0.005 % 0-28 Drop in ity of ophthalmic 00:00: [place] drops 00 at Medical bedtime. Branch dorzolamide 2020-07 Yes [id number] 1[drp] Place 1 [facility] -timoloL 0-28 Drop in ity of 22.3-6.8 00:00: [place] mg/mL 00 2 (two) Medical ophthalmic times Branch drops daily. metoprolol 2020-0 Yes hypertensio 25mg Q.5D Take 25 mg [...] Take [address] [facility] reinfarctio by mouth [place] tablet 17:23: n daily. [facility] metoprolol 2020-0 Yes hypertensio 25mg Q.5D Take 25 mg [...] Take [address] [facility] EC 8-31 reinfarctio by mouth [place] tablet 17:23: n daily. [address] metoprolol 2020-0 Yes hypertensio 25mg Q.5D Take 25 mg [...] Take [address] [facility]31 reinfarctio by mouth [place] [facility] tablet 17:23: n daily. [address] apixaban 2020-0 Yes 5mg Q.5D Take [address] [facility] (ELIQUIS) 5 8-31 tablet (5 [facility] mg Tab 00:00: mg total) Medica l tablet 00 by mouth 2 Center (two) times daily. apixaban 2020-0 Yes 5mg Q.5D Take [address] [facility] (ELIQUIS) 5 8-31 tablet (5 [facility] mg Tab 00:00: mg total) Medica l tablet 00 by mouth 2 Center (two) times daily. apixaban 2020-0 Yes 5mg Q.5D Take [address] [facility] (ELIQUIS) 5 8-31 tablet (5 [facility] mg Tab 00:00: mg total) Medica l tablet 00 by mouth 2 Center (two) times daily. Immunizations Ordered Filled Immunization Date Status Comments [facility] e Immunization Name Name Influenza High Dose 2022-03-30 Completed Unive [facility]ity of 00:00:00 [place] [facility] Influenza High Dose 2022-03-30 Completed Unive [facility] of 00:00:00 [place] [facility] Influenza High Dose 2022-03-30 Completed [facility] of 00:00:00 [place] [facility] Influenza High Dose 2022-03-30 Completed Unive rsity of 00:00:00 [place] [facility] Influenza High Dose 2022-03-30 Completed Unive rsity of 00:00:00 [place] [facility] Influenza High Dose 2022-03-30 Completed Unive rsity of 00:00:00 [place] [facility] Influenza High Dose 2022-03-30 Completed Unive rs[facility] of 00:00:00 [place] [facility] Influenza High Dose 2022-03-30 Completed Unive rsity of 00:00:00 [place] [facility] Influenza High Dose 2022-03-30 Completed Unive rsity of 00:00:00 [place] [facility] Influenza High Dose 2022-03-30 Completed Unive rsity of 00:00:00 [place] [facility] Influenza High Dose 2022-03-30 Completed Unive rsity of 00:00:00 [place] [facility] Influenza High Dose 2022-03-30 Completed Unive rsity of 00:00:00 [place] [facility] Influenza High Dose 2022-03-30 Completed Unive rsity of 00:00:00 [place] [facility] Influenza High Dose 2022-03-30 Completed Unive rsity of 00:00:00 [place] [facility] Influenza High Dose 2022-03-30 Completed Unive rsity of 00:00:00 [facility] Influenza High Dose 2022-03-30 Completed Unive rsity of 00:00:00 [place] [facility] Influenza High Dose 2022-03-30 Completed Unive rsity of 00:00:00 [place] [facility] Influenza High Dose 2022-03-30 Completed Unive rsity of 00:00:00 [place] [facility] Influenza High Dose 2022-03-30 Completed Unive rsity of 00:00:00 [place] [facility] Influenza High Dose 2022-03-30 Completed Unive rsity of 00:00:00 [place] [facility] Influenza High Dose 2022-03-30 Completed Unive rsity of 00:00:00 [place] [facility] Influenza High Dose 2022-03-30 Completed Unive rsity of 00:00:00 [place] [facility] Influenza High Dose 2022-03-30 Completed Unive rsity of 00:00:00 [facility] Influenza High Dose 2022-03-30 Completed Unive rsity of 00:00:00 [facility] Influenza High Dose 2022-03-30 Completed Unive rsity of 00:00:00 [facility] Influenza High Dose 2022-03-30 Completed Unive rsity of 00:00:00 [facility] Influenza High Dose 2022-03-30 Completed Unive rsity of 00:00:00 [facility] Influenza High Dose 2022-03-30 Completed Unive rsity of 00:00:00 [place] [facility] Influenza High Dose 2022-03-30 Completed Unive rsity of 00:00:00 [facility] Influenza High Dose 2022-03-30 Completed Unive rsity of 00:00:00 [facility] Influenza High Dose 2022-03-30 Completed Unive rsity of 00:00:00 [facility] Influenza High Dose 2022-03-30 Completed Unive rsity of 00:00:00 [facility] Influenza High Dose 2022-03-30 Completed Unive rsity of 00:00:00 [facility] Branch Influenza High Dose 2022-03-30 Completed Unive rsity of 00:00:00 [facility] Influenza High Dose 2022-03-30 Completed Unive rsity of 00:00:00 [facility] Influenza High Dose 2022-03-30 Completed Unive rsity of 00:00:00 [facility] Branch Influenza High Dose 2022-03-30 Completed Unive rsity of 00:00:00 [facility] SARS-COV-2 COVID-19 2022-03-25 Completed Unive rsity of [...] YRS+, Branch BIVALENT 0.3ML, IM, (PFIZER MAGUIRE TOP) SARS-COV-2 COVID-19 2022-03-25 Completed Unive rsity of NICKY-SUCROSE 00:00:00 [place] [facility] VACCINE [facility]+, Branch BIVALENT 0.3ML, IM, (PFIZER MAGUIRE TOP) SARS-COV-2 COVID-19 2022-03-25 Completed Unive rsity of [place]ICK[place]-SUCROSE 00:00:00 [place] [facility] VACCINE [facility] YRS+, Branch BIVALENT 0.3ML, IM, (PFIZER MAGUIRE TOP) SARS-COV-2 COVID-19 2022-03-25 Completed Unive rsity of [place]ICK[place]-SUCROSE 00:00:00 [place] [facility] VACCINE 12 YRS+, Branch BIVALENT 0.3ML, IM, (PFIZER MAGUIRE TOP) SARS-COV-2 COVID-19 2022-03-25 Completed Unive rsity of [place]ICKY-SUCROSE 00:00:00 [place] [facility] VACCINE 12 YRS+, Branch BIVALENT 0.3ML, IM, (PFIZER MAGUIRE TOP) SARS-COV-2 COVID-19 2022-03-25 Completed Unive rsity of [place]ICKY-SUCROSE 00:00:00 [place] [facility] VACCINE 12 YRS+, Branch BIVALENT 0.3ML, IM, (PFIZER MAGUIRE TOP) SARS-COV-2 COVID-19 2022-03-25 Completed Unive rsity of [place]ICK[place]-SUCROSE 00:00:00 [place] [facility] VACCINE 12 YRS+, Branch BIVALENT 0.3ML, IM, (PFIZER MAGUIRE TOP) SARS-COV-2 COVID-19 2022-03-25 Completed Unive rsity of [place]ICK[place]-SUCROSE 00:00:00 [place] [facility] VACCINE [facility] YRS+, Branch BIVALENT 0.3ML, IM, (PFIZER MAGUIER TOP) SARS-COV-2 COVID-19 2022-03-25 Completed Unive rsity of [place]ICK[place]-SUCROSE 00:00:00 [place] [facility] VACCINE 12 YRS+, Branch BIVALENT 0.3ML, IM, (PFIZER MAGUIRE TOP) SARS-COV-2 COVID-19 2022-03-25 Completed Unive rsity of [place]-SUCROSE 00:00:00 [place] [facility] VACCINE [facility] YRS+, Branch BIVALENT 0.3ML, IM, (PFIZER MAGUIRE TOP) SARS-COV-2 COVID-19 2022-03-25 Completed Unive rsity of [place]ICK[place]-SUCROSE 00:00:00 [place] [facility] VACCINE [facility] YRS+, Branch BIVALENT 0.3ML, IM, (PFIZER MAGUIRE TOP) SARS-COV-2 COVID-19 2021-04-09 Completed Unive rsity of PFIZER VACCINE 00:00:00 [facility] Branch SARS-COV-2 COVID-19 2021-04-09 Completed Unive rsity of PFIZER VACCINE 00:00:00 [facility] Branch SARS-COV-2 COVID-19 2021-04-09 Completed Unive rsity of PFIZER VACCINE 00:00:00 [facility] Branch SARS-COV-2 COVID-19 2021-04-09 Completed Unive rsity of PFIZER VACCINE 00:00:00 [facility] Branch SARS-COV-2 COVID-19 2021-04-09 Completed Unive rsity of PFIZER VACCINE 00:00:00 [facility] Branch SARS-COV-2 COVID-19 2021-04-09 Completed Unive rsity of PFIZER VACCINE 00:00:00 [facility] Branch SARS-COV-2 COVID-19 2021-04-09 Completed Unive rsity of PFIZER VACCINE 00:00:00 [facility] Branch SARS-COV-2 COVID-19 2021-04-09 Completed Unive rsity of PFIZER VACCINE 00:00:00 [facility] Branch SARS-COV-2 COVID-19 2021-04-09 Completed Unive rsity of PFIZER VACCINE 00:00:00 [facility] Branch SARS-COV-2 COVID-19 2021-04-09 Completed Unive rsity of PFIZER VACCINE 00:00:00 [facility] Branch SARS-COV-2 COVID-19 2021-04-09 Completed Unive rsity of PFIZER VACCINE 00:00:00 [facility] Branch SARS-COV-2 COVID-19 2021-04-09 Completed Unive rsity of PFIZER VACCINE 00:00:00 [facility] Branch SARS-COV-2 COVID-19 2021-04-09 Completed Unive rsity of PFIZER VACCINE 00:00:00 [facility] Branch SARS-COV-2 COVID-19 2021-04-09 Completed Unive rsity of PFIZER VACCINE 00:00:00 [facility] Branch SARS-COV-2 COVID-19 2021-04-09 Completed Unive rsity of PFIZER VACCINE 00:00:00 [facility] Branch SARS-COV-2 COVID-19 2021-04-09 Completed Unive rsity of PFIZER VACCINE 00:00:00 [facility] Branch SARS-COV-2 COVID-19 2021-04-09 Completed Unive rsity of PFIZER VACCINE 00:00:00 [facility] Branch SARS-COV-2 COVID-19 2021-04-09 Completed Unive rsity of PFIZER VACCINE 00:00:00 [facility] Branch SARS-COV-2 COVID-19 2021-04-09 Completed Unive rsity of PFIZER VACCINE 00:00:00 [facility] SARS-COV-2 COVID-19 2021-04-09 Completed Unive rsity of PFIZER VACCINE 00:00:00 [facility] Branch SARS-COV-2 COVID-19 2021-04-09 Completed Unive rsity of PFIZER VACCINE 00:00:00 [facility] Branch SARS-COV-2 COVID-19 2021-04-09 Completed Unive rsity of PFIZER VACCINE 00:00:00 [facility] Branch SARS-COV-2 COVID-19 2021-04-09 Completed Unive rsity of PFIZER VACCINE 00:00:00 [facility] Branch SARS-COV-2 COVID-19 2021-04-09 Completed Unive rsity of PFIZER VACCINE 00:00:00 [facility] Branch SARS-COV-2 COVID-19 2021-04-09 Completed Unive rsity of PFIZER VACCINE 00:00:00 [facility] Branch SARS-COV-2 COVID-19 2021-04-09 Completed Unive rsity of PFIZER VACCINE 00:00:00 [facility] Branch SARS-COV-2 COVID-19 2021-04-09 Completed Unive rsity of PFIZER VACCINE 00:00:00 [facility] Branch SARS-COV-2 COVID-19 2021-04-09 Completed Unive rsity of PFIZER VACCINE 00:00:00 [facility] Branch SARS-COV-2 COVID-19 2021-04-09 Completed Unive rsity of PFIZER VACCINE 00:00:00 [facility] Branch SARS-COV-2 COVID-19 2021-04-09 Completed Unive rsity of PFIZER VACCINE 00:00:00 [facility] Branch SARS-COV-2 COVID-19 2021-04-09 Completed Unive rsity of PFIZER VACCINE 00:00:00 [facility] Branch SARS-COV-2 COVID-19 2021-04-09 Completed Unive rsity of PFIZER VACCINE 00:00:00 [facility] Branch SARS-COV-2 COVID-19 2021-04-09 Completed Unive rsity of PFIZER VACCINE 00:00:00 [facility] Branch SARS-COV-2 COVID-19 2021-04-09 Completed Unive rsity of PFIZER VACCINE 00:00:00 [facility] SARS-COV-2 COVID-19 2021-04-09 Completed Unive rsity of PFIZER VACCINE 00:00:00 [facility] SARS-COV-2 COVID-19 2021-04-09 Completed Unive rsity of PFIZER VACCINE 00:00:00 [facility] SARS-COV-2 COVID-19 2021-04-09 Completed Unive rsity of PFIZER VACCINE 00:00:00 [facility] Branch SARS-COV-2 COVID-19 2021-04-09 Completed Unive rsity of PFIZER VACCINE 00:00:00 [facility] SARS-COV-2 COVID-19 2021-04-09 Completed Unive rsity of PFIZER VACCINE 00:00:00 [facility] SARS-COV-2 COVID-19 2021-04-09 Completed Unive rsity of PFIZER VACCINE 00:00:00 [facility] SARS-COV-2 COVID-19 2021-04-09 Completed Unive rsity of PFIZER VACCINE 00:00:00 [facility] SARS-COV-2 COVID-19 2021-04-09 Completed Unive rsity of PFIZER VACCINE 00:00:00 [facility] SARS-COV-2 COVID-19 2020-08-28 Completed Unive rsity of PFIZER VACCINE 00:00:00 [facility] SARS-COV-2 COVID-19 2020-08-28 Completed Unive rsity of PFIZER VACCINE 00:00:00 [facility] SARS-COV-2 COVID-19 2020-08-28 Completed Unive rsity of PFIZER VACCINE 00:00:00 [facility] SARS-COV-2 COVID-19 2020-08-28 Completed Unive rsity of PFIZER VACCINE 00:00:00 [facility] SARS-COV-2 COVID-19 2020-08-28 Completed Unive rsity of PFIZER VACCINE 00:00:00 [facility] SARS-COV-2 COVID-19 2020-08-28 Completed Unive rsity of PFIZER VACCINE 00:00:00 [facility] SARS-COV-2 COVID-19 2020-08-28 Completed Unive rsity of PFIZER VACCINE 00:00:00 [place] [facility] SARS-COV-2 COVID-19 2020-08-28 Completed Unive rsity of PFIZER VACCINE 00:00:00 [facility] SARS-COV-2 COVID-19 2020-08-28 Completed Unive rsity of PFIZER VACCINE 00:00:00 [facility] SARS-COV-2 COVID-19 2020-08-28 Completed Unive rsity of PFIZER VACCINE 00:00:00 [facility] SARS-COV-2 COVID-19 2020-08-28 Completed Unive rsity of PFIZER VACCINE 00:00:00 [facility] SARS-COV-2 COVID-19 2020-08-28 Completed Unive rsity of PFIZER VACCINE 00:00:00 [facility] SARS-COV-2 COVID-19 2020-08-28 Completed Unive rsity of PFIZER VACCINE 00:00:00 [facility] SARS-COV-2 COVID-19 2020-08-28 Completed Unive rsity of PFIZER VACCINE 00:00:00 [facility] SARS-COV-2 COVID-19 2020-08-28 Completed Unive rsity of PFIZER VACCINE 00:00:00 [facility] SARS-COV-2 COVID-19 2020-08-28 Completed Unive rsity of PFIZER VACCINE 00:00:00 [facility] SARS-COV-2 COVID-19 2020-08-28 Completed Unive rsity of PFIZER VACCINE 00:00:00 [facility] SARS-COV-2 COVID-19 2020-08-28 Completed Unive rsity of PFIZER VACCINE 00:00:00 [facility] SARS-COV-2 COVID-19 2020-08-28 Completed Unive rsity of PFIZER VACCINE 00:00:00 [facility] SARS-COV-2 COVID-19 2020-08-28 Completed Unive rsity of PFIZER VACCINE 00:00:00 [facility] SARS-COV-2 COVID-19 2020-08-28 Completed Unive rsity of PFIZER VACCINE 00:00:00 [facility] SARS-COV-2 COVID-19 2020-08-28 Completed Unive rsity of PFIZER VACCINE 00:00:00 [facility] SARS-COV-2 COVID-19 2020-08-28 Completed Unive rsity of PFIZER VACCINE 00:00:00 [facility] SARS-COV-2 COVID-19 2020-08-28 Completed Unive rsity of PFIZER VACCINE 00:00:00 [facility] SARS-COV-2 COVID-19 2020-08-28 Completed Unive rsity of PFIZER VACCINE 00:00:00 [facility] SARS-COV-2 COVID-19 2020-08-28 Completed Unive rsity of PFIZER VACCINE 00:00:00 [facility] SARS-COV-2 COVID-19 2020-08-28 Completed Unive rsity of PFIZER VACCINE 00:00:00 [facility] SARS-COV-2 COVID-19 2020-08-28 Completed Unive rsity of PFIZER VACCINE 00:00:00 [facility] SARS-COV-2 COVID-19 2020-08-28 Completed Unive rsity of PFIZER VACCINE 00:00:00 [facility] SARS-COV-2 COVID-19 2020-08-28 Completed Unive rsity of PFIZER VACCINE 00:00:00 [facility] SARS-COV-2 COVID-19 2020-08-28 Completed Unive rsity of PFIZER VACCINE 00:00:00 [facility] SARS-COV-2 COVID-19 2020-08-28 Completed Unive rsity of PFIZER VACCINE 00:00:00 [facility] SARS-COV-2 COVID-19 2020-08-28 Completed Unive rsity of PFIZER VACCINE 00:00:00 [facility] SARS-COV-2 COVID-19 2020-08-28 Completed Unive rsity of PFIZER VACCINE 00:00:00 [facility] SARS-COV-2 COVID-19 2020-08-28 Completed Unive rsity of PFIZER VACCINE 00:00:00 [facility] SARS-COV-2 COVID-19 2020-08-28 Completed Unive rsity of PFIZER VACCINE 00:00:00 [facility] SARS-COV-2 COVID-19 2020-08-28 Completed Unive rsity of PFIZER VACCINE 00:00:00 [facility] SARS-COV-2 COVID-19 2020-08-28 Completed Unive rsity of PFIZER VACCINE 00:00:00 [facility] SARS-COV-2 COVID-19 2020-08-28 Completed Unive rsity of PFIZER VACCINE 00:00:00 [facility] SARS-COV-2 COVID-19 2020-08-28 Completed Unive rsity of PFIZER VACCINE 00:00:00 [facility] SARS-COV-2 COVID-19 2020-08-28 Completed Unive rsity of PFIZER VACCINE 00:00:00 [facility] SARS-COV-2 COVID-19 2020-08-28 Completed Unive rsity of PFIZER VACCINE 00:00:00 [facility] SARS-COV-2 COVID-19 2020-07-29 Completed Unive rsity of PFIZER VACCINE 00:00:00 [facility] SARS-COV-2 COVID-19 2020-07-29 Completed Unive rsity of PFIZER VACCINE 00:00:00 [facility] SARS-COV-2 COVID-19 2020-07-29 Completed Unive rsity of PFIZER VACCINE 00:00:00 [facility] SARS-COV-2 COVID-19 2020-07-29 Completed Unive rsity of PFIZER VACCINE 00:00:00 [facility] SARS-COV-2 COVID-19 2020-07-29 Completed Unive rsity of PFIZER VACCINE 00:00:00 [facility] SARS-COV-2 COVID-19 2020-07-29 Completed Unive rsity of PFIZER VACCINE 00:00:00 [facility] SARS-COV-2 COVID-19 2020-07-29 Completed Unive rsity of PFIZER VACCINE 00:00:00 [facility] SARS-COV-2 COVID-19 2020-07-29 Completed Unive rsity of PFIZER VACCINE 00:00:00 [facility] SARS-COV-2 COVID-19 2020-07-29 Completed Unive rsity of PFIZER VACCINE 00:00:00 [facility] SARS-COV-2 COVID-19 2020-07-29 Completed Unive rsity of PFIZER VACCINE 00:00:00 [facility] SARS-COV-2 COVID-19 2020-07-29 Completed Unive rsity of PFIZER VACCINE 00:00:00 [facility] SARS-COV-2 COVID-19 2020-07-29 Completed Unive rsity of PFIZER VACCINE 00:00:00 [facility] SARS-COV-2 COVID-19 2020-07-29 Completed Unive rsity of PFIZER VACCINE 00:00:00 [facility] SARS-COV-2 COVID-19 2020-07-29 Completed Unive rsity of PFIZER VACCINE 00:00:00 [facility] SARS-COV-2 COVID-19 2020-07-29 Completed Unive rsity of PFIZER VACCINE 00:00:00 [facility] SARS-COV-2 COVID-19 2020-07-29 Completed Unive rsity of PFIZER VACCINE 00:00:00 [facility] SARS-COV-2 COVID-19 2020-07-29 Completed Unive rsity of PFIZER VACCINE 00:00:00 [facility] SARS-COV-2 COVID-19 2020-07-29 Completed Unive rsity of PFIZER VACCINE 00:00:00 [facility] SARS-COV-2 COVID-19 2020-07-29 Completed Unive rsity of PFIZER VACCINE 00:00:00 [facility] SARS-COV-2 COVID-19 2020-07-29 Completed Unive rsity of PFIZER VACCINE 00:00:00 [facility] SARS-COV-2 COVID-19 2020-07-29 Completed Unive rsity of PFIZER VACCINE 00:00:00 [facility] SARS-COV-2 COVID-19 2020-07-29 Completed Unive rsity of PFIZER VACCINE 00:00:00 [facility] SARS-COV-2 COVID-19 2020-07-29 Completed Unive rsity of PFIZER VACCINE 00:00:00 [facility] SARS-COV-2 COVID-19 2020-07-29 Completed Unive rsity of PFIZER VACCINE 00:00:00 [facility] SARS-COV-2 COVID-19 2020-07-29 Completed Unive rsity of PFIZER VACCINE 00:00:00 [facility] SARS-COV-2 COVID-19 2020-07-29 Completed Unive rsity of PFIZER VACCINE 00:00:00 [facility] SARS-COV-2 COVID-19 2020-07-29 Completed Unive rsity of PFIZER VACCINE 00:00:00 [facility] SARS-COV-2 COVID-19 2020-07-29 Completed Unive rsity of PFIZER VACCINE 00:00:00 [facility] SARS-COV-2 COVID-19 2020-07-29 Completed Unive rsity of PFIZER VACCINE 00:00:00 [facility] SARS-COV-2 COVID-19 2020-07-29 Completed Unive rsity of PFIZER VACCINE 00:00:00 [facility] SARS-COV-2 COVID-19 2020-07-29 Completed Unive rsity of PFIZER VACCINE 00:00:00 [facility] SARS-COV-2 COVID-19 2020-07-29 Completed Unive rsity of PFIZER VACCINE 00:00:00 [facility] SARS-COV-2 COVID-19 2020-07-29 Completed Unive rsity of PFIZER VACCINE 00:00:00 [facility] SARS-COV-2 COVID-19 2020-07-29 Completed Unive rsity of PFIZER VACCINE 00:00:00 [facility] SARS-COV-2 COVID-19 2020-07-29 Completed Unive rsity of PFIZER VACCINE 00:00:00 [facility] SARS-COV-2 COVID-19 2020-07-29 Completed Unive rsity of PFIZER VACCINE 00:00:00 [facility] SARS-COV-2 COVID-19 2020-07-29 Completed Unive rsity of PFIZER VACCINE 00:00:00 [facility] SARS-COV-2 COVID-19 2020-07-29 Completed Unive rsity of PFIZER VACCINE 00:00:00 [facility] SARS-COV-2 COVID-19 2020-07-29 Completed Unive rsity of PFIZER VACCINE 00:00:00 [facility] SARS-COV-2 COVID-19 2020-07-29 Completed Unive rsity of PFIZER VACCINE 00:00:00 [facility] SARS-COV-2 COVID-19 2020-07-29 Completed Unive rsity of PFIZER VACCINE 00:00:00 [facility] SARS-COV-2 COVID-19 2020-07-29 Completed Unive rsity of PFIZER VACCINE 00:00:00 [facility] Influenza High Dose 2020-04-10 Completed [facility] [place] 00:00:00 [facility] Influenza High Dose 2020-04-10 Completed [facility] [place] 00:00:00 [facility] Influenza High Dose 2020-04-10 Completed [facility] [place] 00:00:00 [facility] Influenza High Dose 2020-04-10 Completed [facility] [place] 00:00:00 [facility] Influenza High Dose 2020-04-10 Completed [facility] [place] 00:00:00 [facility] Influenza High Dose 2020-04-10 Completed [facility] [place] 00:00:00 [facility] Influenza High Dose 2020-04-10 Completed [facility] [place] 00:00:00 [facility] Influenza High Dose 2020-04-10 Completed [facility] [place] 00:00:00 [facility] Influenza High Dose 2020-04-10 Completed [facility] [place] 00:00:00 [facility] Influenza High Dose 2020-04-10 Completed [facility] [place] 00:00:00 [facility] Influenza High Dose 2020-04-10 Com[facility] [place] [facility] Influenza High Dose 2020-04-10 Completed [facility] 00:[facility]00 [facility] Influenza High Dose 2020-04-10 Completed [facility] 00:00:00 [facility] Influenza High Dose 2020-04-10 Completed [facility] 00:00:00 [facility] Influenza High Dose 2020-04-10 Completed [facility] 00:00:00 [facility] Influenza High Dose 2020-04-10 Completed [facility] 00:00:00 [facility] Influenza High Dose 2020-04-10 Completed [facility] 00:00:00 [facility] Influenza High Dose 2020-04-10 Completed [facility] 00:00:00 [facility] Influenza High Dose 2020-04-10 Completed [facility] 00[facility]00:00 [facility] Influenza High Dose 2020-04-10 Completed [facility] 00:00:00 [facility] Influenza High Dose 2020-04-10 Completed [facility] 00:00:00 [facility] Influenza High Dose 2020-04-10 Completed [facility] 00:00:00 [facility] Influenza High Dose 2020-04-10 Completed [facility] 00:00:00 [facility] Influenza High Dose 2020-04-10 Completed [facility] 00:00:00 [facility] Influenza High Dose 2020-04-10 Completed [facility] 00:00:00 [facility] Influenza High Dose 2020-04-10 Completed [facility] 00:00:00 [facility] Influenza High Dose 2020-04-10 Completed [facility] 00:00:00 [facility] Influenza High Dose 2020-04-10 Completed [facility] 00:00:00 [facility] Influenza High Dose 2020-04-10 Completed [facility] 00:00:00 [facility] Influenza High Dose 2020-04-10 Completed [facility] 00:00:00 [facility] Influenza High Dose 2020-04-10 Completed [facility] 00:00:00 [facility] Influenza High Dose 2020-04-10 Completed [facility] 00:00:00 [facility] Influenza High Dose 2020-04-10 Completed [facility] 00:00:00 [facility] Influenza High Dose 2020-04-10 Completed [facility] 00:00:00 [facility] Influenza High Dose 2020-04-10 Completed [facility] 00:00:00 [facility] Influenza High Dose 2020-04-10 Completed [facility] 00:00:00 [facility] Influenza High Dose 2020-04-10 Completed [facility] 00:00:00 [facility] Influenza High Dose 2020-04-10 Completed [facility] 00:00:00 [facility] Influenza High Dose 2020-04-10 Completed [facility] 00:00:00 [facility] Influenza High Dose 2020-04-10 Completed [facility] 00:00:00 [facility] Influenza High Dose 2020-04-10 Completed [facility] 00:00:00 [facility] Influenza High Dose 2020-04-10 Completed [facility] 00:00:00 [facility] TDAP 2019-04-23 Completed University of 00:00:00 [facility] TDAP 2019-04-23 Completed University [facility] 00:00:00 [facility] TDAP 2019-04-23 Completed University [facility] 00:00:00 [facility] TDAP 2019-04-23 Completed University of 00:00:00 [facility] TDAP 2019-04-23 Completed University of 00:00:00 [facility] TDAP 2019-04-23 Completed [facility] 00:00:00 [facility] TDAP 2019-04-23 Completed [facility] 00:00:00 [facility] TDAP 2019-04-23 Completed University [facility] 00:00:00 [facility] TDAP 2019-04-23 Completed [facility] 00:00:00 [facility] TDAP 2019-04-23 Completed University [facility] 00:00:00 [facility] TDAP 2019-04-23 Completed [facility] 00:00:00 [facility] TDAP 2019-04-23 Completed [facility] 00:00:00 [facility] TDAP 2019-04-23 Completed [facility] 00:00:00 [facility] TDAP 2019-04-23 Completed [facility] 00:00:00 [facility] TDAP 2019-04-23 Completed University [facility] 00:00:00 [facility] TDAP 2019-04-23 Completed University [facility] 00:00:00 [facility] TDAP 2019-04-23 Completed University [facility] 00:00:00 [facility] TDAP 2019-04-23 Completed [facility] 00:00:00 [facility] TDAP 2019-04-23 Completed University of 00:00:00 [facility] TDAP 2019-04-23 Completed [facility] 00:00:00 [facility] TDAP 2019-04-23 Completed University [facility] 00:00:00 [facility] TDAP 2019-04-23 Completed University [facility] 00:00:00 [facility] TDAP 2019-04-23 Completed University of 00:00:00 [facility] TDAP 2019-04-23 Completed University of 00:00:00 [facility] TDAP 2019-04-23 Completed University [facility] 00:00:00 [facility] TDAP 2019-04-23 Completed University of 00:00:00 [facility] TDAP 2019-04-23 Completed University [facility] 00:00:00 [facility] TDAP 2019-04-23 Completed University of 00:00:00 [facility] TDAP 2019-04-23 Completed University of 00:00:00 [facility] TDAP 2019-04-23 Completed University [facility] 00:00:00 [facility] TDAP 2019-04-23 Completed University of 00:00:00 [facility] TDAP 2019-04-23 Completed University [facility] 00:00:00 [facility] TDAP 2019-04-23 Completed University [facility] 00:00:00 [facility] TDAP 2019-04-23 Completed University [facility] 00:00:00 [facility] TDAP 2019-04-23 Completed [facility] 00:00:00 [facility] TDAP 2019-04-23 Completed [facility] 00:00:00 [facility] TDAP 2019-04-23 Completed [facility] 00:00:00 [facility] TDAP 2019-04-23 Completed [facility] 00:00:00 [facility] TDAP 2019-04-23 Completed [facility] 00:00:00 [facility] TDAP 2019-04-23 Completed University of 00:00:00 [facility] TDAP 2019-04-23 Completed University [facility] 00:00:00 [facility] TDAP 2019-04-23 Completed University of 00:00:00 [facility] Influenza High Dose 2019-03-04 Completed [facility] of 00:00:00 [facility] Influenza High Dose 2019-03-04 Completed [facility] of 00:00:00 [facility] Influenza High Dose 2019-03-04 Completed [facility] of 00:00:00 [facility] Influenza High Dose 2019-03-04 Completed [facility] of 00:00:00 [facility] Influenza High Dose 2019-03-04 Completed [facility] of 00:00:00 [facility] Influenza High Dose 2019-03-04 Completed [facility] of 00:00:00 [facility] Influenza High Dose 2019-03-04 Completed [facility] of 00:00:00 [facility] Influenza High Dose 2019-03-04 Completed [facility] of 00:00:00 [facility] Influenza High Dose 2019-03-04 Completed [facility] of 00:00:00 [facility] Influenza High Dose 2019-03-04 Completed [facility] of 00:00:00 [facility] Influenza High Dose 2019-03-04 Completed [facility] of 00:00:00 [facility] Influenza High Dose 2019-03-04 Completed [facility] of 00:00:00 [facility] Influenza High Dose 2019-03-04 Completed [facility] of 00:00:00 [facility] Influenza High Dose 2019-03-04 Completed [facility] of 00:00:00 [facility] Influenza High Dose 2019-03-04 Completed [facility] of 00:00:00 [facility] Influenza High Dose 2019-03-04 Completed [facility] of 00:00:00 [facility] Influenza High Dose 2019-03-04 Completed [facility] of 00:00:00 [facility] Influenza High Dose 2019-03-04 Completed [facility] of 00:00:00 [facility] Influenza High Dose 2019-03-04 Completed [facility] of 00:00:00 [facility] Influenza High Dose 2019-03-04 Completed [facility] of 00:00:00 [facility] Influenza High Dose 2019-03-04 Completed [facility] of 00:00:00 [facility] Influenza High Dose 2019-03-04 Completed [facility] of 00:00:00 [facility] Influenza High Dose 2019-03-04 Completed [facility] of 00:00:00 [facility] Influenza High Dose 2019-03-04 Completed [facility] of 00:00:00 [facility] Influenza High Dose 2019-03-04 Completed [facility] of 00:00:00 [facility] Influenza High Dose 2019-03-04 Completed [facility] of 00:00:00 [facility] Influenza High Dose 2019-03-04 Completed [facility] of 00:00:00 [facility] Influenza High Dose 2019-03-04 Completed [facility] of 00:00:00 [facility] Influenza High Dose 2019-03-04 Completed [facility] of 00:00:00 [facility] Influenza High Dose 2019-03-04 Completed [facility] of 00:00:00 [facility] Influenza High Dose 2019-03-04 Completed [facility] of 00:00:00 [facility] Influenza High Dose 2019-03-04 Completed [facility] of 00:00:00 [facility] Influenza High Dose 2019-03-04 Completed [facility] of 00:00:00 [facility] Influenza High Dose 2019-03-04 Completed [facility] of 00:00:00 [facility] Influenza High Dose 2019-03-04 Completed [facility] of 00:00:00 [facility] Influenza High Dose 2019-03-04 Completed [facility] of 00:00:00 [facility] Influenza High Dose 2019-03-04 Completed [facility] of 00:00:00 [facility] Influenza High Dose 2019-03-04 Completed [facility] of 00:00:00 [facility] Influenza High Dose 2019-03-04 Completed [facility] of 00:00:00 [facility] Influenza High Dose 2019-03-04 Completed [facility] of 00:00:00 [facility] Influenza High Dose 2019-03-04 Completed [facility] of 00:00:00 [facility] Influenza High Dose 2019-03-04 Completed [facility] of 00:00:00 [facility] Influenza High Dose 2018-04-10 Completed [facility] of 00:00:00 [facility] Influenza High Dose 2018-04-10 Completed [facility] of 00:00:00 [facility] Influenza High Dose 2018-04-10 Completed [facility] of 00:00:00 [facility] Influenza High Dose 2018-04-10 Completed [facility] of 00:00:00 [facility] Influenza High Dose 2018-04-10 Completed [facility] of 00:00:00 [facility] Influenza High Dose 2018-04-10 Completed [facility] of 00:00:00 [facility] Influenza High Dose 2018-04-10 Completed [facility] of 00:00:00 [facility] Influenza High Dose 2018-04-10 Completed [facility] of 00:00:00 [facility] Influenza High Dose 2018-04-10 Completed [facility] of 00:00:00 [facility] Influenza High Dose 2018-04-10 Completed [facility] of 00:00:00 [facility] Influenza High Dose 2018-04-10 Completed [facility] of 00:00:00 [facility] Influenza High Dose 2018-04-10 Completed [facility] of 00:00:00 [facility] Influenza High Dose 2018-04-10 Completed [facility] of 00:00:00 [facility] Influenza High Dose 2018-04-10 Completed [facility] of 00:00:00 [facility] Influenza High Dose 2018-04-10 Completed [facility] of 00:00:00 [facility] Influenza High Dose 2018-04-10 Completed [facility] of 00:00:00 [facility] Influenza High Dose 2018-04-10 Completed [facility] of 00:00:00 [facility] Influenza High Dose 2018-04-10 Completed [facility] of 00:00:00 [facility] Influenza High Dose 2018-04-10 Completed [facility] of 00:00:00 [facility] Influenza High Dose 2018-04-10 Completed [facility] of 00:00:00 [facility] Influenza High Dose 2018-04-10 Completed [facility] of 00:00:00 [facility] Influenza High Dose 2018-04-10 Completed [facility] of 00:00:00 [facility] Influenza High Dose 2018-04-10 Completed [facility] of 00:00:00 [facility] Influenza High Dose 2018-04-10 Completed [facility] of 00:00:00 [facility] Influenza High Dose 2018-04-10 Completed [facility] of 00:00:00 [facility] Influenza High Dose 2018-04-10 Completed [facility] of 00:00:00 [facility] Influenza High Dose 2018-04-10 Completed [facility] of 00:00:00 [facility] Influenza High Dose 2018-04-10 Completed [facility] of 00:00:00 [facility] Influenza High Dose 2018-04-10 Completed [facility] of 00:00:00 [facility] Influenza High Dose 2018-04-10 Completed [facility] of 00:00:00 [facility] Influenza High Dose 2018-04-10 Completed [facility] of 00:00:00 [facility] Influenza High Dose 2018-04-10 Completed [facility] of 00:00:00 [facility] Influenza High Dose 2018-04-10 Completed [facility] of 00:00:00 [facility] Influenza High Dose 2018-04-10 Completed [facility] of 00:00:00 [facility] Influenza High Dose 2018-04-10 Completed [facility] of 00:00:00 [facility] Influenza High Dose 2018-04-10 Completed [facility] of 00:00:00 [facility] Influenza High Dose 2018-04-10 Completed [facility] of 00:00:00 [facility] Influenza High Dose 2018-04-10 Completed [facility] of 00:00:00 [facility] Influenza High Dose 2018-04-10 Completed [facility] of 00:00:00 [facility] Influenza High Dose 2018-04-10 Completed [facility] of 00:00:00 [facility] Influenza High Dose 2018-04-10 Completed [facility] of 00:00:00 [facility] Influenza High Dose 2018-04-10 Completed [facility] of 00:00:00 [facility] Influenza High Dose 2016-05-12 Completed [facility] 00:00:00 [facility] Influenza High Dose 2016-05-12 Completed [facility] of 00:00:00 [facility] Influenza High Dose 2016-05-12 Completed [facility] of 00:00:00 [facility] Influenza High Dose 2016-05-12 Completed [facility] of 00:00:00 [facility] Influenza High Dose 2016-05-12 Completed [facility] of 00:00:00 [facility] Influenza High Dose 2016-05-12 Completed [facility] of 00:00:00 [facility] Influenza High Dose 2016-05-12 Completed [facility] of 00:00:00 [facility] Influenza High Dose 2016-05-12 Completed [facility] of 00:00:00 [facility] Influenza High Dose 2016-05-12 Completed [facility] of 00:00:00 [facility] Influenza High Dose 2016-05-12 Completed [facility] of 00:00:00 [facility] Influenza High Dose 2016-05-12 Completed [facility] of 00:00:00 [facility] Influenza High Dose 2016-05-12 Completed [facility] of 00:00:00 [facility] Influenza High Dose 2016-05-12 Completed [facility] of 00:00:00 [facility] Influenza High Dose 2016-05-12 Completed [facility] of 00:00:00 [facility] Influenza High Dose 2016-05-12 Completed [facility] of 00:00:00 [facility] Influenza High Dose 2016-05-12 Completed [facility] of 00:00:00 [facility] Influenza High Dose 2016-05-12 Completed [facility] of 00:00:00 [facility] Influenza High Dose 2016-05-12 Completed [facility] of 00:00:00 [facility] Influenza High Dose 2016-05-12 Completed [facility] of 00:00:00 [facility] Influenza High Dose 2016-05-12 Completed [facility] of 00:00:00 [facility] Influenza High Dose 2016-05-12 Completed [facility] of 00:00:00 [facility] Influenza High Dose 2016-05-12 Completed [facility] of 00:00:00 [facility] Influenza High Dose 2016-05-12 Completed [facility] of 00:00:00 [facility] Influenza High Dose 2016-05-12 Completed [facility] of 00:00:00 [facility] Influenza High Dose 2016-05-12 Completed [facility] of 00:00:00 [facility] Influenza High Dose 2016-05-12 Completed [facility] of 00:00:00 [facility] Influenza High Dose 2016-05-12 Completed [facility] of 00:00:00 [facility] Influenza High Dose 2016-05-12 Completed [facility] of 00:00:00 [facility] Influenza High Dose 2016-05-12 Completed [facility] of 00:00:00 [facility] Influenza High Dose 2016-05-12 Completed [facility] of 00:00:00 [facility] Influenza High Dose 2016-05-12 Completed [facility] of 00:00:00 [facility] Influenza High Dose 2016-05-12 Completed [facility] of 00:00:00 [facility] Influenza High Dose 2016-05-12 Completed [facility] of 00:00:00 [facility] Influenza High Dose 2016-05-12 Completed [facility] of 00:00:00 [facility] Influenza High Dose 2016-05-12 Completed [facility] of 00:00:00 [facility] Influenza High Dose 2016-05-12 Completed [facility] of 00:00:00 [facility] Influenza High Dose 2016-05-12 Completed [facility] of 00:00:00 [facility] Influenza High Dose 2016-05-12 Completed [facility] of 00:00:00 [facility] Influenza High Dose 2016-05-12 Completed [facility] of 00:00:00 [facility] Influenza High Dose 2016-05-12 Completed [facility] of 00:00:00 [facility] Influenza High Dose 2016-05-12 Completed [facility] of 00:00:00 [facility] Influenza High Dose 2016-05-12 Completed [facility] of 00:00:00 [facility] Vital Signs Vital Name Observation Time Observation Value Comments Source HEIGHT 2020-02-24 00:00:00 157.5 cm WEIGHT 2020-02-24 00:00:00 72.5 kg Systolic blood 2022-11-24 19:01:00 187 mm[Hg] [facility] Diastolic blood 2022-11-24 19:01:00 74 mm[Hg] [facility] pressure [facility] Heart rate 2022-11-24 19:01:00 61 /min [facility] Oxygen saturation in 2022-11-24 19:01:00 97 /min [facility] Arterial blood by [facility] Pulse oximetry Branch Body temperature 2022-11-24 18:59:00 35.94 [place] [facility] Respiratory rate 2022-11-24 18:59:00 17 /min [facility] Body height 2022-11-24 18:59:00 152.4 cm [facility] Body weight 2022-11-24 18:59:00 60.238 kg [facility] BMI 2022-11-24 18:59:00 25.94 kg/m2 [facility] Systolic blood 2022-11-18 14:55:00 168 mm[Hg] [facility] pressure [facility] Diastolic blood 2022-11-18 14:55:00 67 mm[Hg] [facility] pressure [facility] Heart rate 2022-11-18 14:54:00 62 /min [facility] Body temperature 2022-11-18 14:54:00 36.22 [place] [facility] Body height 2022-11-18 14:54:00 160 cm [facility] Body weight 2022-11-18 14:54:00 59.421 kg [facility] BMI 2022-11-18 14:54:00 23.21 kg/m2 [facility] Systolic blood 2022-09-03 16:20:00 183 mm[Hg] [facility] pressure [facility] Diastolic blood 2022-09-03 16:20:00 80 mm[Hg] [facility] pressure [facility] Heart rate 2022-09-03 16:20:00 66 /min [facility] Body height 2022-09-03 16:14:00 152.4 cm [facility] Body weight 2022-09-03 16:14:00 59.421 kg [facility] BMI 2022-09-03 16:14:00 25.58 kg/m2 [facility] Oxygen saturation in 2022-09-03 16:14:00 98 /min [facility] Arterial blood by [facility] shama Pulse oximetry Branch Systolic blood 2022-08-18 16:11:00 138 mm[Hg] [facility] pressure [facility] Diastolic blood 2022-08-18 16:11:00 69 mm[Hg] [facility] pressure [facility] Heart rate 2022-08-18 16:11:00 71 /min [facility] Body temperature 2022-08-18 16:11:00 36.5 [place] [facility] Body height 2022-08-18 16:11:00 152.4 cm [facility] Body weight 2022-08-18 16:11:00 58.968 kg [facility] BMI 2022-08-18 16:11:00 25.39 kg/m2 [facility] Oxygen saturation in 2022-08-18 16:11:00 98 /min [facility] Arterial blood by [facility] Pulse oximetry Branch Systolic blood 2022-05-26 15:59:00 162 mm[Hg] [facility] pressure [facility] Diastolic blood 2022-05-26 15:59:00 75 mm[Hg] [facility] pressure [facility] Heart rate 2022-05-26 15:59:00 67 /min [facility] Body temperature 2022-05-26 15:53:00 36.83 [place] [facility] Respiratory rate 2022-05-26 15:53:00 18 /min [facility] Body height 2022-05-26 15:53:00 152.4 cm [facility] Body weight 2022-05-26 15:53:00 62.596 kg [facility] BMI 2022-05-26 15:53:00 26.95 kg/m2 [facility] Oxygen saturation in 2022-05-26 15:53:00 99 /min [facility] Arterial blood by [facility] Pulse oximetry Branch Systolic blood 2022-03-29 19:10:00 173 mm[Hg] [facility] pressure [facility] Diastolic blood 2022-03-29 19:10:00 76 mm[Hg] [facility] pressure [facility] Heart rate 2022-03-29 19:10:00 66 /min [facility] Oxygen saturation in 2022-03-29 19:10:00 97 /min [facility] Arterial blood by [facility] Pulse oximetry Branch Body temperature 2022-03-29 19:07:[address] [facility] 2022-03-29 19:07:00 17 /min [facility] Body weight 2022-03-29 19:07:00 64.093 kg [facility] BMI 2022-03-29 19:07:00 27.60 kg/m2 [facility] Body temperature 2022-03-18 18:19:00 [address] [facility] Body height 2022-03-18 18:19:00 152.4 cm [facility] Body weight 2022-03-18 18:19:00 63.504 kg [facility] BMI 2022-03-18 18:19:00 27.34 kg/m2 [facility] HEIGHT 2020-02-24 00:00:00 157.5 cm WEIGHT 2020-02-24 00:00:00 72.5 kg Procedures Procedure Date / Time Performing Clinician Source Performed NM MUGA 2022-12-15 14:40:00 Gilmer Mcclendon [facility] NM MUGA 2022-12-15 14:40:00 Gilmer Mcclendon [facility] HB ECG ROUTINE & RHYTHM 2022-11-24 19:07:55 Gilmer Mcclendon [facility] PATIENT QUESTIONNAIRE 2022-09-06 06:01:00 Doctor Deannassigned, [facility] Name Medical Branch AUTHORIZATION TO RELEASE 2022-09-03 06:01:00 Doctor Dionicio, [facility] PHI TO [facility] [place] [facility] ASSIGNMENT OF BENEFITS 2022-08-18 16:03:20 Doctor Unassigned, [facility] [place] [facility] REFERRAL- 2022-08-06 06:01:00 Doctor Unassigned, [facility] REQUEST/RESPONSE [place] [facility] PATIENT QUESTIONNAIRE 2022-05-26 06:01:00 Doctor Unasslenard, [facility] [place] [facility] MEDICATION CORRESPONDENCE 2022-04-15 05:01:00 Doctor Deannassigned, [facility] [place] [facility] SARS-COV-2 COVID-19 2022-03-25 13:35:13 Doctor Unassigned, [facility] NICKY-SUCROSE VACCINE 12 [place] [facility] YRS+, BIVALENT 0.3ML, IM, (PFIZER MAGUIRE TOP BOOSTER) Plan of Care Planned Activity Planned Date Details Comments Source Future Scheduled 2029-04-23 DTAP/TDAP/TD VACCINES [facility] 00:[facility]:00 (2 - Td or Tdap) [code Medic al Center = DTAP/TDAP/TD VACCINES (2 - Td or Tdap)] Future Scheduled 2029-04-23 DTAP/TDAP/TD VACCINES [facility] 00:00:00 (2 - Td or Tdap) [code Medic al Center = DTAP/TDAP/TD VACCINES (2 - Td or Tdap)] Future Scheduled 2029-04-23 DTAP/TDAP/TD VACCINES [facility] 00:00:00 (2 - Td or Tdap) [code Medic al Center = DTAP/TDAP/TD VACCINES (2 - Td or Tdap)] Future Scheduled 2023-03-04 Influenza Vaccine (#1) [facility] 00:00:00 [code = Influenza Medical Ce nter Vaccine (#1)] Future Scheduled 2023-03-[address] [facility] 00:00:00 (Season Ended) [code = Medic al Center INFLUENZA VACCINE (Season Ended)] Future Scheduled 2022-07-[address] [facility] 00:00:00 (12+) [code = Medical Center DEPRESSION SCREENING (12+)] Future Scheduled 2022-07-04 FALLS RISK SCREENING [facility] 00:00:00 [code = FALLS RISK Medical C enter SCREENING] Future Scheduled 2022-07-[address] [facility] 00:00:00 (12+) [code = Medical Center DEPRESSION SCREENING (12+)] Future Scheduled 2022-07-04 FALLS RISK SCREENING [facility] 00:00:00 [code = FALLS RISK Medical C enter SCREENING] Future Scheduled 2022-07-[address] [facility] 00:00:00 (12+) [code = Medical Center DEPRESSION SCREENING (12+)] Future Scheduled 2022-07-04 F[address]S RISK SCREENING [facility] 00:00:00 [code = FALLS RISK Medical C enter SCREENING] Future Scheduled 2022-03-04 INFLUENZA VACCINE (#1) [facility] 00:00:00 [code = INFLUENZA Medical Ce nter VACCINE (#1)] Future Scheduled 2021-02-[address] [facility] 00:00:00 Counseling and Medical Cente r Screening (12+) [code = Tobacco Cessation Counseling and Screening (12+)] Future Scheduled 2021-02-[address] [facility] 00:00:00 Counseling and Medical Cente r Screening (12+) [code = Tobacco Cessation Counseling and Screening (12+)] Future Scheduled 2021-02-[address] [facility] 00:00:00 Counseling and Medical Cente r Screening (12+) [code = Tobacco Cessation Counseling and Screening (12+)] Future Scheduled 2020-07-[address] [facility] 00:00:00 WELLNESS (YEAR 2 or Medical Center FIRST YEAR if no IPPE) [code = MEDICARE ANNUAL WELLNESS (YEAR 2 or FIRST YEAR if no IPPE)] Future Scheduled 2020-07-[address] [facility] 00:00:00 WELLNESS (YEAR 2 or Medical Center FIRST YEAR if no IPPE) [code = MEDICARE ANNUAL WELLNESS (YEAR 2 or FIRST YEAR if no IPPE)] Future Scheduled 2020-07-[address] [facility] 00:00:00 WELLNESS (YEAR 2 or Medical Center FIRST YEAR if no IPPE) [code = MEDICARE ANNUAL WELLNESS (YEAR 2 or FIRST YEAR if no IPPE)] Future Scheduled 1994 SHINGLES VACCINES ([address] [facility] 00:00:00 of 2) [code = SHINGLES Medic al Center VACCINES (1 of 2)] Future Scheduled 1994 SHINGLES VACCINES ([address] [facility] 00:00:00 of 2) [code = SHINGLES Medic al Center VACCINES (1 of 2)] Future Scheduled 1994 SHINGLES VACCINES ([address] [facility] 00:00:00 of 2) [code = SHINGLES Medic al Center VACCINES (1 of 2)] Future Scheduled 1962 HEPATITIS C SCREENING [facility] 00:00:00 [code = HEPATITIS C Medical Center SCREENING] Future Scheduled 1962 HEPATITIS C SCRE[facility]ING [facility] 00:00:00 [code = HEPATITIS C Medical Center SCREENING] Future Scheduled 1962 HEPATITIS C SCRE[facility]ING [facility] 00:00:00 [code = HEPATITIS C Medical Center SCREENING] Future Scheduled 1950 PNEUMOCOCCAL 65+ YRS [facility] 00:00:00 (1 - PCV) [code = Medical Ce nter PNEUMOCOCCAL 65+ YRS (1 - PCV)] Future Scheduled 1950 PNEUMOCOCCAL 65+ YRS [facility] 00:00:00 (1 - PCV) [code = Medical Ce nter PNEUMOCOCCAL 65+ YRS (1 - PCV)] Future Scheduled 1950 PNEUMOCOCCAL 65+ YRS [facility] 00:00:00 (1 - PCV) [code = Medical Ce nter PNEUMOCOCCAL 65+ YRS (1 - PCV)] Future Scheduled 1944 COVID-19 VACCINE (#1) [facility] 00:00:00 [code = COVID-[address] VACCINE (#1)] Future Scheduled 1944 COVID-19 VACCINE (#1) [facility] 00:00:00 [code = COVID-[address] VACCINE (#1)] Future Scheduled 1944 COVID-19 VACCINE (#1) [facility] 00:00:00 [code = COVID-[address] VACCINE (#1)] Future Scheduled 1944 DXA SCAN [code = DXA [facility] 00:00:00 SCAN] Medical Center Future Scheduled 1944 DXA SCAN [code = DXA [facility] 00:00:00 SCAN] Medical Center Future Scheduled 1944 DXA SCAN [code = DXA [facility] 00:00:00 SCAN] Medical Center Encounters Start End Encounter Admission Attending Care Care Encounter Source Date/Time Date/Time Type Type Clinicians Facility Department ID 2021-10-06 Outpatient JAHKEON [facility] SOR [id number] Univers 07:23:47 BRADY ity of [facility] 2020-03-27 [facility] 1.2.840.114 [id number] Univers 00:00:00 Hospital Sendvt Apolinar Hurtado 350.1.13.10 ity of Admission [place] [phone] [place] dical nal [address] [facility] 2020-02-24 Inpatient ER CIVUNIGUNTA SLE Neurology [id number] SLEH 11:05:02 , DESTINY 2022-12-22 2022-12-22 [facility] [id number] Univers 00:00:00 00:00:00 Sendvt Apolinar [place] 350.1.13.10 ity of [place] [phone] [place] dical NAL 059 [facility] 2022-12-15 2022-12-15 [facility] 1.2.840.114 [id number] Univers 08:23:41 23:59:00 Encounter Gilmer HURTADO 350.1.13.10 ity of [facility] [place] [id number] [facility] [address] [place] [address] 2022-12-15 2022-12-15 [facility] [id number] Univers 08:23:27 23:59:00 SENDIL ity of [facility] 2022-12-15 2022-12-15 [facility] 1.2.840.114 [id number] Univers 08:23:27 23:59:00 Encounter Gilmer HURTADO 350.1.13.10 ity [place] [id number] [facility] [address] 2022-12-02 2022-12-02 Telephone [facility] 1.2.840.114 [id number] Univers 00:00:00 00:00:00 Vimal [facility] 350.1.13.10 it y of [place] 4.2.7.2.686 Ziyad as TEODORO?BLEA [phone] [place] chris WRIGHT 044 [facility] OFFICE [facility] 2022-11-26 2022-11-26 Telephone [facility] 1.2.840.114 [id number] Univers 00:00:00 00:00:00 [facility] 350.1.13.10 it y of [place] 4.2.7.2.686 Ziyad as TEODORO?BLEA [phone] [facility] 044 [facility] 2022-11-24 2022-11-24 Outpatient R HAKAN [facility] [id number] Univers 14:00:00 14:35:18 [facility]22-[facility]-24 2022-11-24 Office [facility] 1.2.840.114 [id number] Univers 14:00:00 14:35:18 Visit Caseytodd ArleneNegraGhislaineNegra [place] 350.1.13.10 ity of [place] [phone] [place] chris NAL 059 [facility] 2022-11-22 2022-11-22 [employer] [facility], Ang - Db [facility] 1.2.840.1 [id number] Univers 08:15:00 08:30:00 Visit Vimal Lancaster [facility] 350.1.13 .10 ity of [place] 4.2.7.2.686 Ziyad as TEODORO?BLEA [phone] [place]s chris WRIGHT 353 [facility] OFFICE [facility] 2022-11-22 2022-11-22 Outpatient R ANISHA [facility] [id number] Univers 08:15:00 08:15:00 VIMAL [facility] 2022-11-18 2022-11-18 Office [facility] 1.2.840.114 [id number] Univers 10:15:00 10:30:00 Visit [facility] 350.1.13.10 it y of [place] 4.2.7.2.686 Ziyad as TEODORO?BLEA [phone] Ks dicbk WRIGHT [address] [place] [address] OFFICE [facility] 2022-11-18 2022-11-18 Outpatient R ANISHA [facility] [id number] Univers 10:15:00 10:15:00 VIMAL ity [facility] 2022-10-28 2022-10-28 Outpatient R WALTER IBRD [facility] [id number] Univers 09:15:00 09:15:00 ity of [facility] 2022-10-26 2022-10-26 [facility] 1.2.840.114 [id number] Univers 00:00:00 00:00:00 Sendtodd JACOBOTON 350.1.13.10 ity of [place] [phone] [facility] 059 [facility] 2022-10-20 2022-10-20 [facility] 1.2.840.114 [id number] Univers 00:00:00 00:00:00 [facility] 350.1.13.10 it y of [place] 4.2.7.2.686 Ziyad as TEODORO?BLEA [phone] [facility] [place] [address] [place] [address] 2022-10-06 2022-10-06 [facility] 1.2.840.114 [id number] Univers 00:00:00 00:00:00 [facility] 350.1.13.10 it y of [place] 4.2.7.2.686 Ziyad as TEODORO?BLEA [phone] Ks dicbk WRIGHT [address] [place] [address] 2022-10-01 2022-10-01 [facility] 1.2.840.114 [id number] Univers 00:00:00 00:00:00 [facility] 350.1.13.10 it y of [place] 4.2.7.2.686 Ziyad as TEODORO?BLEA [id number] Ks dicnj [address] 2022-09-30 2022-09-30 Telephone [facility] 1.2.840.114 [id number] Univers 00:00:00 00:00:00 [facility] 350.1.13.10 it y of Derick [facility] 4.2.7.2.686 Ziyad as TEODORO?BLEA [id number] [facility] 044 [facility] OFFICE [facility] 2022-09-27 2022-09-27 [facility] [id number] Univers 10:30:00 10:30:00 SENDIL ity [facility] 2022-09-27 2022-09-27 Telephone [facility] 1.2.840.114 [id number] Univers 00:00:00 00:00:00 [facility] 350.1.13.10 it y of Derick [place] 4.2.7.2.686 Ziyad as TEODORO?BLEA [phone] [address] OFFICE [facility] 2022-09-23 2022-09-23 [facility]patient [facility] [id number] Univers 10:30:00 10:30:00 SENDIL ity [facility] 2022-09-06 2022-09-06 Orders Doctor LANRE 1.2.840.114 [id number] Univers 00:00:00 00:00:00 Only Unassigned, KAM 350.1.13.10 ity of [place] [facility] 4.2.7.2.686 Ziyad as [phone] [address] 2022-09-03 2022-09-03 [facility] [id number] Univers 10:00:00 10:44:30 SENDIL ity [facility] 2022-09-03 2022-09-03 [facility] 1.2.840.114 [id number] Univers 10:00:00 10:44:30 Visit Sendvt Apolinar [place] 350.1.13.10 ity [facility] [place].2.7.2.[place] [id number] [facility] 059 [facility] 2022-09-03 2022-09-03 Orders Doctor LANRE 1.2.840.114 [id number] Univers 00:00:00 00:00:00 Only Unassigned, KAM 350.1.13.10 ity of [place] [facility] 4.2.7.2.686 Ziyad as [phone] [address] 2022-09-02 2022-09-02 Telephone [facility] 1.2.466.386 [id number] Univers 00:00:00 00:00:00 Sendil Apolinar [place] 350.1.13.10 ity [place] [id number] [address] 2022-08-30 2022-08-30 [facility] [id number] Univers 12:28:37 12:28:37 SENDIL ity [facility] 2022-08-18 2022-08-18 Office [facility] 1.2.840.114 [id number] Univers 10:30:00 11:00:00 Visit [facility] 350.1.13.10 it y of [place] 4.2.7.2.686 Ziyad as TEODORO?BLEA [phone] [address] OFFICE [facility] 2022-08-18 2022-08-18 Outpatient R [facility] [id number] Univers 10:30:00 10:40:27 VIMAL ity [facility] 2022-08-18 2022-08-18 Orders Doctor DE DIOS 1.2.840.114 [id number] Univers 00:00:00 00:00:00 Only Unassigned, KAM 350.1.13.10 ity of [place] [facility] 4.2.7.2.686 Ziyad as [phone] [address] 2022-08-18 2022-08-18 Telephone [facility] 1.2.314.475 [id number] Univers 00:00:00 00:00:00 Sendtodd [place] 350.1.13.10 ity [place] [id number] [address] 2022-08-06 2022-08-06 Telephone [facility] 1.2.579.250 [id number] Univers 00:00:00 00:00:00 Sendtodd [place] 350.1.13.10 ity of [facility] 4.2.7.2.[place] [id number] [place] [address] [facility] 2022-08-06 2022-08-06 Orders Doctor DE DIOS 1.2.840.114 [id number] Univers 00:00:00 00:00:00 Only Unassigned, KAM 350.1.13.10 ity of [place] [facility] 4.2.7.2.686 Ziyad as [id number] [address] 2022-08-06 2022-08-06 Telephone [facility] 1.2.840.114 [id number] Univers 00:00:00 00:00:00 [facility] 350.1.13.10 it y of [place] 4.2.7.2.686 Ziyad as TEODORO?BLEA [id number] [address] OFFICE [facility] 2022-07-16 2022-07-16 Telephone [facility] 1.2.840.114 [id number] Univers 00:00:00 00:00:00 [facility] 350.1.13.10 it y of [place] 4.2.7.2.686 Ziyad as TEODORO?BLEA [phone] [address] OFFICE [facility] 2022-05-26 2022-05-26 Outpatient [facility] [id number] Univers 10:00:00 10:14:57 SENDIL ity of [facility] 2022-05-26 2022-05-26 Office [facility] 1.2.840.114 [id number] Univers 10:00:00 10:14:57 Visit Sendtodd [place] 350.1.13.10 ity of [facility] 4.2.7.2.[place] [id number] [address] 2022-05-26 2022-05-26 Orders Doctor DE DIOS 1.2.840.114 [id number] Univers 00:00:00 00:00:00 Only Unassigned, KAM 350.1.13.10 ity of [place] [facility] 4.2.7.2.686 Ziyad as [id number] [address] 2022-04-15 2022-04-15 Refill [facility] 1.2.840.114 [id number] Univers 00:00:00 00:00:00 Sendtodd [place] 350.1.13.10 ity of [facility] 4.2.7.2.[place] [id number] [place] [address] [facility] 2022-04-15 2022-04-15 Orders Doctor LANRE 1.2.840.114 [id number] Univers 00:00:00 00:00:00 Only Unassigned, KAM 350.1.13.10 ity of [place] [facility] 4.2.7.2.686 Ziyad as [id number] [address] 2022-03-31 2022-03-31 Telephone Anisha [facility] 1.2.840.114 [id number] Univers 00:00:00 00:00:00 [facility] 350.1.13.10 it y of [place] 4.2.7.2.686 Ziyad as TEODORO?BLEA [id number] Ks chris [address] MEDICAL OFFICE [facility] 2022-03-29 2022-03-29 Outpatient R HAKAN [facility] [id number] Univers 14:00:00 14:29:54 SENDIL ity of [facility] 2022-03-29 2022-03-29 Office [facility] 1.2.840.114 [id number] Univers 14:00:00 14:29:54 Visit Gilmer HURTADO 350.1.13.10 ity of [facility] 4.2.7.2.[place] [phone] [place] [address] [facility] 2022-03-25 2022-03-25 Imm/Inj Vaccine, Ang Db Cbc Fam [facility] 1. 2.840.114 [id number] Univers 08:10:00 08:31:14 Visit Vimal Lancaster [facility] 350.1.13 .10 ity of [place] 4.2.7.2.686 Ziyad as TEODORO?BLEA [id number] [place]s chris [address] [address] MEDICAL OFFICE [facility] 2022-03-25 2022-03-25 Outpatient [facility] [id number] Univers 08:10:00 08:10:00 VIMAL [facility] 2022-03-25 2022-03-25 [employer] [facility], [facility] 1.2.840.1 [id number] Univers 07:45:00 08:00:00 Visit Vimal Lancaster [facility] 350.1.13 .10 ity of [place] 4.2.7.2.686 Ziyad as TEODORO?BLEA [id number] [facility] 353 [facility] OFFICE [facility] 2022-03-18 2022-03-18 Outpatient R [facility] [id number] Univers 12:46:14 23:59:00 BRADY ity [facility] 2022-03-18 2022-03-18 [facility] 1.2.840.114 [id number] Univers 12:46:14 23:59:00 Encounter Brady PRIMARY 350.1.13.10 it[place] [id number] [facility] [address] 2022-03-18 2022-03-18 Outpatient R [facility] [id number] Univers 12:46:14 23:59:00 BRADY ity [facility] 2022-03-18 2022-03-18 Outpatient R [facility] [id number] Univers 13:00:00 13:41:47 BRADY ity [facility] 2022-03-18 2022-03-18 Office [facility] 1.2.840.114 [id number] Univers 13:00:00 13:41:47 Visit Brady PRIMARY 350.1.13.10 it y of [place] [id number] [facility] [address] 2022-03-17 2022-03-17 Office [facility] 1.2.840.114 [id number] Univers 10:15:00 10:30:00 Visit [facility] 350.1.13.10 it y of [place] 4.2.7.2.686 Ziyad as TEODORO?BLEA [id number] [address] OFFICE [facility] 2022-03-17 2022-03-17 Outpatient R [facility] [id number] Univers 10:15:00 10:15:00 VIMAL ity [facility] 2022-01-17 2022-01-17 Refill [facility] 1.2.840.114 [id number] Univers 00:00:00 00:00:00 [facility] 350.1.13.10 it y of [place] [facility] 4.2.7.2.686 Ziyad as TEODORO?BLEA [phone] [address] OFFICE [facility] 2022-01-07 2022-01-07 [facility] [id number] Univers 15:34:46 23:59:00 BRADY ity [facility] 2022-01-07 2022-01-07 Outpatient R [facility] [id number] Univers 15:34:46 23:59:00 BRADY ity [facility] 2022-01-07 2022-01-07 [facility] 1.2.840.114 [id number] Univers 15:34:46 23:59:00 Encounter Brady PRIMARY 350.1.13.10 it[place] [phone] [facility] [address] 2022-01-07 2022-01-07 Office [facility] 1.2.840.114 [id number] Univers 15:20:00 15:30:00 Visit Brady PRIMARY 350.1.13.10 it y [place] [id number] [facility] [address] 2021-12-10 2021-12-10 Outpatient [facility] [id number] Univers 14:00:00 14:21:30 BRADY ity of [facility] 2021-12-10 2021-12-10 Office [facility] 1.2.840.114 [id number] Univers 14:00:00 14:10:00 Visit Brady PRIMARY 350.1.13.10 it y of [place] [id number] Ks dical [address] 2021-12-10 2021-12-10 Outpatient [facility] [id number] Univers 14:00:00 14:00:00 BRADY ity of [facility] 2021-11-26 2021-11-26 [facility] [id number] Univers 14:33:22 23:59:00 BRADY ity [facility] 2021-11-26 2021-11-26 Outpatient R [facility] [id number] Univers 14:33:22 23:59:00 BRADY ity [facility] 2021-11-26 2021-11-26 [facility] 1.2.840.114 [id number] Univers 14:33:22 23:59:00 Encounter Brady PRIMARY 350.1.13.10 it[place] [id number] [facility] [address] 2021-11-26 2021-11-26 Office [facility] 1.2.840.114 [id number] Univers 14:00:00 14:31:50 Visit Brady PRIMARY 350.1.13.10 it y of [place] [id number] [facility] [address] 2021-11-06 2021-11-[address] [facility] S[facility] [id number] Univers 06:31:00 15:25:00 BRADY ity [facility] 2021-11-06 2021-11-06 [facility] 1.2.840.114 [id number] Univers 06:31:00 15:25:00 Encounter Brady KAM 350.1.13.10 ity of HOSPITAL 4.2.7.2.686 Ziyad as [phone] [facility] [address] 2021-11-06 2021-11-06 Surgery Adilene BENITO 1.2.840.114 [id number] Univers 08:55:00 10:25:00 Brady KAM 350.1.13.10 it y of HOSPITAL 4.2.7.2.686 Ziyad as [id number] [facility] [address] 2021-11-06 2021-11-06 Orders Doctor LANRE 1.2.840.114 [id number] Univers 00:00:00 00:00:00 Only Unassigned, KAM 350.1.13.10 ity of [place] [facility] 4.2.7.2.686 Ziyad as [phone] [facility] [address] 2021-10-23 2021-10-23 Telephone Adilene [facility] 1.2.840.114 [id number] Univers 00:00:00 00:00:00 Brady SPECIALTY 350.1.13.10 ity of [facility] [place] [id number] [place] dical VICTORY 198 [facility] 2021-10-08 2021-10-08 Outpatient R HAKAN [facility] [id number] Univers 11:00:00 11:30:30 SENDIL ity [facility] 2021-10-08 2021-10-08 Office Hakan [facility] 1.2.840.114 [id number] Univers 11:00:00 11:30:30 Visit Sendil Apolinar HUR[place]AD[place] 350.1.13.10 ity [facility] 4[place]2.7.2.[place] [phone] [place] chris NAL 059 [facility] 2021-10-08 2021-10-08 Outpatient R HAKAN [facility] [id number] Univers 11:00:00 11:30:30 SENDIL ity [facility] 2021-10-08 2021-10-08 Outpatient Barrera MCCLENDON [facility] [id number] Univers 11:00:00 11:00:00 SENDIL ity [facility] 2021-10-08 2021-10-08 Telephone [facility] [id number] Univers 00:00:00 00:00:00 Sendtodd JacobsNegraGhislaineNegra GENESIS 350.1.13.10 ity of [place] MANU[place] [phone] [facility] NAL 059 [facility] 2021-10-08 2021-10-08 Orders Doctor LANRE 1.2.840.114 [id number] Univers 00:00:00 00:00:00 Only Unassigned, KAM 350.1.13.10 ity of [place] [facility] 4.2.7.2.686 Ziyad as [id number] [address] 2021-10-07 2021-10-07 Telephone [facility] 1.2.840.114 [id number] Univers 00:00:00 00:00:00 [facility] 350.1.13.10 it y of [place] [facility] 4.2.7.2.686 Ziyad as TEODORO?BLEA [phone] Five [facility] 044 [facility] OFFICE [facility] 2021-10-07 2021-10-07 Telephone [facility] 1.2.840.114 [id number] Univers 00:00:00 00:00:00 [facility] 350.1.13.10 it y of [facility] 4.2.7.2.686 Ziyad as TEODORO?BLEA [phone] [address] OFFICE [facility] 2021-10-01 2021-10-01 [facility]patient [facility] [id number] Univers 13:27:08 23:59:00 BRADY ity of [facility] 2021-10-01 2021-10-01 [facility] 1.2.840.114 [id number] Univers 13:27:08 23:59:00 Encounter Brady PRIMARY 350.1.13.10 [place] [id number] [facility] [address] 2021-10-01 2021-10-01 Outpatient [facility] [id number] Univers 13:40:00 14:13:30 BRADY ity of [facility] 2021-10-01 2021-10-01 Office [facility] 1.2.840.114 [id number] Univers 13:40:00 14:13:30 Visit Brady PRIMARY 350.1.13.10 [place] [phone] K[place] dical [address] 2021-10-01 2021-10-01 Outpatient [facility] [id number] Univers 13:40:00 14:13:30 BRADY ity of [facility] 2021-09-24 2021-09-24 [facility] 1.2.840.114 [id number] Univers 00:00:00 00:00:00 Management Gilmer HURTADO 350.1.13.10 ity of [place] [phone] [place] dical NAL 059 [facility] 2021-09-16 2021-09-16 Outpatient R ANISHA [facility] [id number] Univers 10:00:00 10:00:00 VIMAL [facility] 2021-09-10 2021-09-10 Telephone [facility] 1.2.840.114 [id number] Univers 00:00:00 00:00:00 [facility] 350.1.13.10 it y of Derick ARISTES 4.2.7.2.686 Ziyad as TEODORO?BLEA [phone] Ks dical KNEY [address] MEDICAL OFFICE [facility] 2021-09-10 2021-09-10 Orders Doctor LANRE 1.2.840.114 [id number] Univers 00:00:00 00:00:00 Only Unassigned, KAM 350.1.13.10 ity of [place] [facility] 4.2.7.2.686 Ziyad as [phone] [facility] [address] 2021-09-01 2021-09-01 Telephone [facility] 1.2.224.917 [id number] [id number] Univers 00:00:00 00:00:00 Gilmer HURTADO 350.1.13.10 it[place] of [place] [phone] Ks dical NAL [address] BUILDING 2021-08-11 2021-08-11 [facility] 1.2.840.114 [id number] Univers 08:32:23 23:59:00 Encounter Gilmer HURTADO 350.1.13.10 it[place] [id number] [facility] [address] 2021-08-11 2021-08-11 [facility] 1.2.840.114 [id number] Univers 08:32:08 23:59:00 Encounter Gilmer HURTADO 350.1.13.10 ity of [place] [phone] [facility] [address] 2021-08-11 2021-08-11 [facility] 1.2.840.114 [id number] [facility] Univers 08:31:49 08:31:49 Encounter Gilmer HURTADO 350.1.13.10 it[place] [id number] [facility] [address] 2021-08-11 2021-08-11 [facility] [id number] Univers 08:31:36 08:30:00 SENDIL ity of [facility] 2021-08-11 2021-08-11 [facility] 1.2.840.114 [id number] Univers 08:30:00 08:30:00 Encounter Gilmer HURTADO 350.1.13.10 it[place] [id number] [facility] [address] 2021-08-11 2021-08-11 Orders Doctor LANRE 1.2.840.114 [id number] Univers 00:00:00 00:00:00 Only Unassigned, KAM 350.1.13.10 ity of [place] [facility] 4.2.7.2.686 Ziyad as [phone] [address] 2021-07-16 2021-07-16 Telephone [facility] 1.2.821.900 [id number] Univers 00:00:00 00:00:00 Gilmer HURTADO 350.1.13.10 ity of [place] [phone] [place] 135339 [facility] 2021-07-09 2021-07-09 Outpatient R PELON, [facility] [id number] Univers 13:15:00 13:15:00 ity [facility] 2021-04-30 2021-04-30 Outpatient R PELON, [facility] [id number] Univers 10:30:00 11:56:43 ity [facility] 2021-04-30 2021-04-30 Outpatient R PELON, [facility] [id number] Univers 10:30:00 11:56:43 ity [facility] 2021-04-30 2021-04-30 Office Pelon, [facility] 1.2.840.114 [id number] Univers 10:08:53 11:56:43 Visit Chester Y 350.1.13.10 it y of [facility] 4.2.7.2.686 Ziyad as BANK [phone] [facility] [address] 2021-04-30 2021-04-30 Orders Doctor DE DIOS 1.2.840.114 [id number] Univers 00:00:00 00:00:00 Only Unassigned, KAM 350.1.13.10 ity of [place] [facility] 4.2.7.2.686 Ziyad as [phone] [address] 2021-04-13 2021-04-13 Refill Pelon, [facility] 1.2.840.114 [id number] Univers 00:00:00 00:00:00 [place] Y 350.1.13.10 it y of [facility] 4.2.7.2.686 Ziyad as BANK [phone] [facility]. [address] 2021-04-09 2021-04-09 Outpatient [facility] [id number] Univers 11:00:00 11:00:00 LEWIS zimmer [facility] 2021-04-09 2021-04-09 Outpatient R KAMILLE [facility] [id number] Univers 11:00:00 10:55:48 LEWIS zimmer [facility] [place] [facility] 2021-04-09 2021-04-09 Imm/Inj Nurse, Adc Pob Immunization [facility] 1.2.840.114 [id number] Univers 10:55:40 10:55:48 Visit Lewis Martinez 350.1.13 .10 it[place] of [place] Profess[place] [phone] [place]s dical nal 421 [facility] 2021-04-09 2021-04-09 Office [facility] 1.2.840.114 [id number] Univers 09:53:58 10:49:17 Visit Gilmer Hurtado 350.1.13.10 it[place] of [place] Profess[place] [phone] Ks dical nal 059 [facility] 2021-03-19 2021-03-19 Outpatient R ANISHA [facility] [id number] Univers 10:00:00 10:09:46 VIMAL zimmer [facility] 2021-03-19 2021-03-19 Office [facility] 1.2.840.114 [id number] Univers 09:32:25 09:47:25 Visit [facility] 350.1.13.10 it y of [place] 4.2.7.2.686 Ziyad as Teodoro?Blea [phone] Ks dical kney 044 [facility] Office [facility] 2021-03-06 2021-03-06 Orders Doctor LANRE 1.2.840.114 [id number] Univers 00:00:00 00:00:00 Only Unassigned, KAM 350.1.13.10 ity of [place] [facility] 4.2.7.2.686 Ziyad as [phone] [address] 2021-02-06 2021-02-06 Telephone [facility] 1.2.840.114 [id number] Univers 00:00:00 00:00:00 [facility] 350.1.13.10 it y of [place] [facility] 4.2.7.2.686 Ziyad as Professio [phone] [address] One 2021-02-03 2021-02-03 Telephone [facility] 1.2.840.114 [id number] Univers 00:00:00 00:00:00 [facility] 350.1.13.10 it y of [place] [facility] 4.2.7.2.686 Ziyad as Professio [phone] [address] One 2020-12-03 2020-12-03 Outpatient R ANISHA [facility] [id number] Univers 14:15:00 14:56:33 VIMAL mike [facility] 2020-11-28 2020-11-28 Refill [facility] 1.2.840.114 [id number] Univers 00:00:00 00:00:00 Page Hurtado 350..13.10 i ty [place] [phone] [address] 2020-11-10 2020-11-10 Outpatient R HAKAN [facility] [id number] Univers 15:30:00 14:57:39 SENDTODD janemike [facility] 2020-11-10 2020-11-10 Office [facility] 1.2.840.114 [id number] Univers 14:14:45 14:57:39 Visit Gilmer Hurtado 350.1.13.10 ity [place] [phone] [facility] 059 [facility] 2020-11-10 2020-11-10 Telephone [facility] 1.2.840.114 [id number] Univers 00:00:00 00:00:00 [facility] 350.1.13.10 it y of [place] 4.2.7.2.686 Ziyad as Professio [phone] [address] One 2020-11-10 2020-11-10 Orders Doctor DE DIOS 1.2.840.114 [id number] Univers 00:00:00 00:00:00 Only Unassigned, KAM 350.1.13.10 ity of [place] [facility] 4.2.7.2.686 Ziyad as [phone] [facility] [address] 2020-11-07 2020-11-07 Refill [facility] 1.2.840.114 [id number] Univers 00:00:00 00:00:00 [facility] 350.1.13.10 it y of [place] 4.2.7.2.686 Ziyad as Professio [phone] [address] Office Building One 2020-10-30 2020-10-30 Outpatient R HAKAN [facility] [id number] Univers 13:30:00 13:30:00 SENDIL ity [facility] 2020-10-29 2020-10-29 Hospital ASHLY Cervantes 1..840.114 [id number] Univers 06:58:52 23:59:00 Encounter Adeline Winston HEALTH 350.1.13.10 ity of [facility] 4.2.7.2.[place] [phone] [facility] [address] 2020-10-29 2020-10-29 Outpatient R HELEN [facility] [id number] Univers 06:58:52 23:59:00 ADELINE [facility] 2020-10-16 2020-10-16 Outpatient R ANISHA [facility] [id number] Univers 10:15:00 10:31:06 VIMAL [facility] 2020-10-16 2020-10-16 Office [facility] 1.2.840.114 [id number] Univers 09:52:35 10:22:35 Visit Vimal [facility] 350.1.13.10 it y of [place] 4.2.7.2.686 Ziyad as Professio [phone] [address] Office Building One 2020-10-13 2020-10-13 Transition Melba Chacon 1..840.114 [id number] [id number] Univers 00:00:00 00:00:00 of Care April Leblanc 350.1.13.10 it y of [place].2.[place] [phone] [facility] [address] 2020-10-13 2020-10-13 Case Helen, EMMANUELIT 1.2.757.345 [id number] [id number] Univers 00:00:00 00:00:00 Management Adeline Winston [facility] 350.1.13.10 ity of [place] [phone] [facility] [address] 2020-10-07 2020-10-10 [facility] Tariq Payne 1.2.840.1 14 [id number] Univers 15:11:00 17:33:00 Encounter Noelle Yee 35 0.1.13.10 ity of [facility] 4.2.7.2.686 Ziyad as [phone] [facility] [address] 2020-10-07 2020-10-10 Inpatient X [facility] YASMEEN [id number] Univers 15:11:00 17:33:00 NOELLE ity of [facility] 2020-10-07 2020-10-10 Inpatient X YEE, [facility] YASMEEN [id number] Univers 15:11:00 17:33:00 NOELLE ity [facility] 2020-10-07 2020-10-10 Inpatient X [facility], [facility] YASMEEN [id number] Univers 15:11:00 17:33:00 NOELLE ity of [facility] 2020-10-07 2020-10-07 Travel 1.2.840.1 1.2.457.684 [id number] [id number] Univers 00:00:00 00:00:00 66802.1.1 350.1.13.10 ity of 3.104.2.7 4[place].3.698 [place] .3.169962 084.8 Medica l .8 Branch 2020-10-04 2020-10-04 Refill Walter Bird 1.2.840.7 [id number] Univers 00:00:00 00:00:00 [place] 30288.1.1 ity of 3.104.2.7 [place] .3.941921 Medica l .8 Branch 2020-10-03 2020-10-03 Emergency Drever, 1.2.840.6 [id number] [id number] Univers 10:53:00 12:02:00 Arabella Rodriguez 55059.1.1 ity of 3.104.2.7 [place] .3.853558 Medica l .8 Branch 2020-10-03 2020-10-03 [facility] ERT [id number] Univers 10:53:00 12:02:00 ARABELLA ity of [facility] 2020-10-03 2020-10-03 Orders Doctor 1.2.840.8 [id number] Univers 00:00:00 00:00:00 Only Unassigned, 61128.1.1 ity of [place] 3.104.2.7 [place] .3.069898 Medica l .[address] 2020-10-03 2020-10-03 Travel 1.2.840.1 1.2.177.615 3202 8174 Univers 00:00:00 00:00:00 92033.1.1 350.1.13.10 ity of 3.104.2.7 4.2.7.3.698 [place] .3.319429 084.8 Medica l .8 [address] 2020-10-02 2020-10-02 Telephone Mickey, 1.2.840.4 [id number] Univers 00:00:00 00:00:00 Peter 99969.1.1 ity of 3.104.2.7 [place] .3.774300 Medica l .[address] 2020-09-22 2020-09-22 Outpatient R HAKAN, [facility] [id number] Univers 10:00:00 11:07:12 SENDIL ity of [facility] 2020-09-22 2020-09-22 Office Hakan, 1.2.840.3 [id number] 342 Univers 09:44:18 11:07:12 Visit Gilmer Jiang 54840.1.1 ity of 3.104.2.7 [place] .3.504275 Medica l .8 [address] 2020-09-22 2020-09-22 Travel 1.2.840.1 1.2.212.164 1078 1376 Univers 00:00:00 00:00:00 43394.1.1 350.1.13.10 ity of 3.104.2.7 4.2.7.3.698 [place] .3.098182 084.8 Medica l .8 [address] 2020-09-16 2020-09-16 Outpatient R TRUMAN [facility] [id number] Univers 18:40:00 19:34:16 OMA ity of [facility] 2020-09-16 2020-09-16 Urgent Green, Oma 1.2.840.0 [id number] Univers 18:09:44 19:34:16 Care Provider, [facility] 72459.1.1 ity of 3.104.2.7 [place] .3.049440 Medica l .8 [address] 2020-09-16 2020-09-16 Telephone Mickey, 1.2.840.1 [id number] Univers 00:00:00 00:00:00 Peter 39095.1.1 ity of 3.104.2.7 [place] .3.673664 Medica l .8 [address] 2020-09-16 2020-09-16 Travel 1.2.840.1 1.2.727.791 5389 [id number] Univers 00:00:00 00:00:00 77899.1.1 350.1.13.10 ity of 3.104.2.7 4.2.7.3.698 [place] .3.345460 084.8 Medica l .8 [address] 2020-09-12 2020-09-12 Orders Doctor 1.2.840.2 [id number] Univers 00:00:00 00:00:00 Only Unassigned, 10270.1.1 ity of [place] 3.104.2.7 [place] .3.231598 Medica l .8 [address] 2020-09-03 2020-09-03 Outpatient R WALTER BIRD [facility] [id number] Univers 13:15:00 13:15:00 ity of [facility] 2020-09-02 2020-09-02 Outpatient R MICKEY [facility] [id number] Univers 13:20:00 14:01:14 PAGE ity of [facility] 2020-09-02 2020-09-02 Office Mickey, 1.2.840.1 [id number] Univers 13:02:40 14:01:14 Visit Page 13522.1.1 ity of 3.104.2.7 [place] .3.547106 Medica l .8 [address] 2020-09-02 2020-09-02 Travel 1.2.840.1 1.2.661.552 5228 [id number] Univers 00:00:00 00:00:00 30323.1.1 350.1.13.10 ity of 3.104.2.7 4.2.7.3.698 [place] .3.560613 084.8 Medica l .8 [address] 2020-09-01 2020-09-01 Telephone Valkarinaconstantino, 1.2.840.8 [id number] Univers 00:00:00 00:00:00 Page 62711.1.1 ity of 3.104.2.7 [place] .3.916861 Medica l .8 [address] 2020-08-28 2020-08-28 Outpatient Barrera PALOMINO [facility] [id number] Univers 09:00:00 08:36:09 FEDE ity [facility] [place] [facility] 2020-08-28 2020-08-28 Imm/Inj Fede Palomino 1.2.840.1 [id number] Univers 08:36:01 08:36:09 Visit Nurse, Marquita Bloom 64698.1.1 ity of 3.104.2.7 [place] .3.145886 Medica l .8 [address] 2020-08-28 2020-08-28 Jordan Mcclendon 1.2.840.6 [id number] [id number] Univers 00:00:00 00:00:00 Gilmer Jiang 10016.1.1 ity of 3.104.2.7 [place] .3.397375 Medica l .[address] 2020-08-25 2020-08-25 Urgent Provider, [facility] 1.2.840.114 [id number] Univers 10:52:07 13:57:17 Care Laura Keen [facility] 350.1.13.10 ity of [place] 4.2.7.2.686 Ziyad as Juan Manuel [phone] Ks dical nal [address] Office Building One 2020-08-25 2020-08-25 Outpatient R [facility] [id number] Univers 11:00:00 11:00:00 ity of [facility] 2020-08-25 2020-08-25 Travel 1.2.840.1 1.2.058.558 5638 1351 Univers 00:00:00 00:00:00 22927.1.1 350.1.13.10 ity of 3.104.2.7 4.2.7.3.698 [place] .3.574168 084.8 Medica l .8 [address] 2020-08-22 2020-08-22 Outpatient R CANDELARIO, [facility] [id number] Univers 09:00:00 09:00:00 FEDE ity of [facility] 2020-08-22 2020-08-22 Telephone Jian, 1.2.840.2 [id number] Univers 00:00:00 00:00:00 Ayad 05047.1.1 ity of 3.104.2.7 [place] .3.322029 Medica l .8 [address] 2020-08-22 2020-08-22 Orders Doctor 1.2.840.9 [id number] Univers 00:00:00 00:00:00 Only Unassigned, 29268.1.1 ity of [place] 3.104.2.7 [place] .3.666960 Medica l .8 [address] 2020-08-21 2020-08-21 Outpatient R [facility] [id number] Univers 10:15:00 10:15:00 ity of [facility] 2020-08-14 2020-08-14 Hospital Sewanthony, Ayad 1.2.840.5 [id number] Univers 09:30:00 23:59:00 Encounter Karina, Remote Device Check At Home - 1 4350.1.1 ity of 3.104.2.7 [place] .3.142223 Medica l .8 [address] 2020-08-14 2020-08-14 [facility] [id number] Univers 09:30:00 23:59:00 AYAD ity of [facility] 2020-08-14 2020-08-14 [facility], 1.2.840.4 [id number] 657 Univers 00:00:00 00:00:00 Only Ayad 39496.1.1 ity of 3.104.2.7 [place] .3.914870 Medica l .8 [address] 2020-08-07 2020-08-07 [facility] 1.2.840.4 [id number] [id number] Univers 00:00:00 00:00:00 Ayad 42656.1.1 ity of 3.104.2.7 [place] .3.246100 Medica l .8 [place] 2020-08-06 2020-08-06 [facility], 1.2.840.7 [id number] [id number] Univers 07:30:00 23:59:00 Encounter Ayad 67916.1.1 it y of 3.104.2.7 [place] .3.454525 Medica l .8 [place] 2020-08-06 2020-08-06 Outpatient [facility] [id number] Univers 07:00:00 23:59:00 AYAD ity of [facility] 2020-08-06 2020-08-06 Anesthesia John Packer 1.2.840.1 10 [id number] Univers 10:29:00 11:20:00 Event Kim Roy 05932.1.1 ity of 3.104.2.7 [place] .3.021067 Medica l .8 [place] 2020-08-06 2020-08-06 [facility], 1.2.840.4 [id number] [id number] Univers 07:10:56 07:29:00 Encounter Ayad 71713.1.1 it y of 3.104.2.7 [place] .3.257069 Medica l .8 Branch 2020-08-06 2020-08-06 Telephone Ana, 1.2.840.5 [id number] Univers 00:00:00 00:00:00 Vicky R 45236.1.1 ity of 3.104.2.7 [place] .3.236644 Medica l .8 [address] 2020-08-06 2020-08-06 Travel 1.2.840.1 1.2.270.905 1385 [id number] Univers 00:00:00 00:00:00 73378.1.1 350.1.13.10 ity of 3.104.2.7 4.2.7.3.698 [place] .3.720764 084.8 Medica l .8 Branch 2020-08-05 2020-08-05 Telephone Jian, 1.2.840.3 [id number] [id number] Univers 00:00:00 00:00:00 Ayad 77012.1.1 ity of 3.104.2.7 [place] .3.790013 Medica l .8 Branch 2020-08-04 2020-08-04 Telephone Walter Bird 1.2.840.9 [id number] Univers 00:00:00 00:00:00 [place] 23218.1.1 ity of 3.104.2.7 [place] .3.956837 Medica l .8 [place] 2020-08-03 2020-08-03 Refill Mickey, 1.2.840.1 [id number] Univers 00:00:00 00:00:00 Peter 17939.1.1 ity of 3.104.2.7 [place] .3.627299 Medica l .8 [address] 2020-07-30 2020-07-30 Outpatient R WALTER BIRD [facility] [id number] [id number] Univers 13:15:00 14:46:16 ity of [facility] 2020-07-30 2020-07-30 Office Walter Bird 1.2.840.4 [id number] [facility] 12:53:04 14:46:16 Visit Chester 60881.1.1 ity of 3.104.2.7 [place] .3.954078 Medica l .8 [place] 2020-07-30 2020-07-30 Orders Doctor 1.2.840.4 [id number] Univers 00:00:00 00:00:00 Only Unassigned, 58738.1.1 ity of [place] 3.104.2.7 [place] .3.447348 Medica l .8 Branch 2020-07-30 2020-07-30 Travel 1.2.840.1 1.2.080.680 9740 8311 Univers 00:00:00 00:00:00 82320.1.1 350.1.13.10 ity of 3.104.2.7 4.2.7.3.698 [place] .3.816368 084.8 Medica l .8 [place] 2020-07-29 2020-07-29 Outpatient R CNADELARIO [facility] [id number] Univers 09:00:00 09:06:23 FEDE ity of [facility] 2020-07-29 2020-07-29 Imm/Inj Fede Palomino 1.2.840.1 [id number] Univers 08:49:46 09:06:23 Visit Nurse, Marquita Pobrayden Immunization 90562.1.1 ity of 3.104.2.7 [place] .3.798401 Medica l .8 [place] 2020-07-18 2020-07-18 Telephone Hakan, 1.2.840.2 [id number] [id number] Univers 00:00:00 00:00:00 Gilmer Jiang 69525.1.1 ity of 3.104.2.7 [place] .3.179844 Medica l .8 [place] 2020-07-16 2020-07-16 Telephone Jian, 1.2.840.2 [id number] [id number] Univers 00:00:00 00:00:00 Ayad 53718.1.1 ity of 3.104.2.7 [place] .3.023562 Medica l .8 [place] 2020-07-15 2020-07-15 Office Sewani, 1.2.840.1 [id number] [id number] Univers 10:15:06 11:19:45 Visit Ayad 25540.1.1 ity of 3.104.2.7 [place] .3.875548 Medica l .8 [place] 2020-07-15 2020-07-15 Outpatient [facility] [id number] Univers 09:40:00 11:19:45 AYAD ity of [facility] 2020-07-15 2020-07-15 Telephone Mickey, 1.2.840.6 [id number] Univers 00:00:00 00:00:00 Peter 03695.1.1 ity of 3.104.2.7 [place] .3.774538 Medica l .8 [place] 2020-07-15 2020-07-15 Travel 1.2.840.1 1.2.130.410 [id number] Univers 00:00:00 00:00:00 47403.1.1 350.1.13.10 ity of 3.104.2.7 4.[place].3.698 [place] .3.878225 084.8 Medica l .8 [place] 2020-07-14 2020-07-14 Hospital Jian, Ayad 1.2.840.1 [id number] Univers 08:45:00 23:59:00 Encounter Karina, Remote Device Check At Home - 1 4350.1.1 ity of 3.104.2.7 [place] .3.308762 Medica l .8 [place] 2020-07-14 2020-07-14 [facility] [id number] Univers 08:45:00 23:59:00 AYAD ity of [facility] 2020-07-14 2020-07-14 Orders Jian, 1.2.840.2 [id number] Univers 00:00:00 00:00:00 Only Ayad 56891.1.1 ity of 3.104.2.7 [place] .3.611983 Medica l .8 [place] 2020-07-07 2020-07-07 Outpatient R WALTER BIRD [facility] [id number] Univers 13:30:00 13:30:00 ity of [facility] 2020-06-30 2020-06-30 Outpatient R JERE PATRICIA [facility] [id number] Univers 15:00:00 15:00:00 ity of [facility] 2020-06-23 2020-06-23 Telephone Hakan [facility] 1.2.649.725 [id number] Univers 00:00:00 00:00:00 Sendil Apolinar Hurtado 350.1.13.10 it[place] [phone] [place] dical nal [address] [place] [address] 2020-06-20 2020-06-20 [facility] 1.2.840.114 [id number] Univers 09:54:26 11:40:50 Visit Gilmer Hurtado 350.1.13.10 it[place] [phone] [place] dic[place] nal [address] [place] [address] 2020-06-20 2020-06-20 Outpatient R HAKAN [facility] [id number] Univers 11:00:00 11:00:00 SENDIL ity [facility] 2020-06-20 2020-06-20 Orders Doctor LANRE 1.2.840.114 [id number] Univers 00:00:00 00:00:00 Only Unassigned, KAM 350.1.13.10 ity of [place] [facility] 4.2.7.2.686 Ziyad as [phone] [facility] 009 [place] 2020-06-13 2020-06-13 Hospital Ayad Villar 1.2.840.114 [id number] Univers 15:30:00 23:59:00 Encounter Karina, Remote Device Check At [facility] 350.1.13.10 ity of [facility] 4.2.7.2.686 Ziyad as [phone] [facility] 285 [place] 2020-06-13 2020-06-13 [facility] [id number] Univers 15:30:00 15:30:00 AYAD ity [facility] [place] [facility] 2020-06-10 2020-06-10 Telephone Hakan [facility] 1.2.564.952 [id number] Univers 00:00:00 00:00:00 Sendtodd Jiang [facility] 350.1.13.10 [place] [phone] [facility] 059 [place] Office [facility] 2020-06-09 2020-06-09 [facility] [id number] Univers 11:15:00 11:15:00 SENDIL ity of [facility] 2020-06-09 2020-06-09 Assembly Machine Offbearer Richie, Adc Lab Main [facility] 1.2.8 40.114 [id number] Univers 10:47:43 11:02:43 Visit Gilmer Mcclendon 350.1.13. 10 [place] [phone] [facility] 2020-06-09 2020-06-09 Orders Doctor LANRE 1.2.840.114 [id number] Univers 00:00:00 00:00:00 Only Unassigned, KAM 350.1.13.10 ity of [place] [facility] 4.2.7.2.686 Ziyad as [phone] [address] 2020-06-06 2020-06-06 Office [facility] 1.2.840.114 [id number] Univers 13:19:04 15:41:10 Visit Page Hurtado 350.1.13.10 [place] [phone] [facility] 044 [facility] 2020-06-06 2020-06-06 Office [facility] 1.2.840.114 [id number] Univers 15:32:31 15:32:48 Visit Page Hurtado 350.1.13.10 i [place] [phone] [facility] 044 [facility] 2020-06-06 2020-06-06 Outpatient R MICKEY [facility] [id number] Univers 13:40:00 13:40:00 PETER ity of [facility] 2020-06-06 2020-06-06 Telephone [facility] 1.2.840.114 [id number] Univers 00:00:00 00:00:00 Page Hurtado 350.1.13.10 [place] [phone] [place] dical nal [address] [facility] 2020-06-04 2020-06-04 Telephone [facility] 1.2.443.859 [id number] Univers 00:00:00 00:00:00 Sendil Apolinar [facility] 350.1.13.10 [place] [phone] [address] Office Building 2020-06-03 2020-06-03 [facility] 1.2.840.114 [id number] Univers 00:00:00 00:00:00 Page Hurtado 350.1.13.10 i [place] [phone] [place] dical nal 044 [facility] 2020-05-27 2020-05-27 Office [facility] 1.2.840.114 [id number] Univers 11:19:04 12:51:16 Visit Gilmer Hurtado 350.1.13.10 it[place] of [place] [phone] [place] dical nal 059 [facility] 2020-05-27 2020-05-27 Outpatient R HAKAN [facility] [id number] Univers 11:30:00 11:30:00 SENDIL ity [facility] 2020-05-13 2020-05-13 Laboratory Pacemaker/Icd, Adc [facility] 1.2. 840.114 [id number] Univers 13:12:53 14:47:29 Only Sloane Venegas 350.1.13.10 it[place] of [place] [phone] [place] dical nal 059 [facility] 2020-05-13 2020-05-13 Outpatient R [facility] [id number] Univers 14:00:00 14:00:00 ity of [facility] 2020-05-13 2020-05-13 Orders Doctor LANRE 1.2.840.114 [id number] Univers 00:00:00 00:00:00 Only Unassigned, KAM 350.1.13.10 ity of [place] [facility] 4.2.7.2.686 Ziyad as [phone] [address] 2020-04-28 2020-04-28 Telephone [facility] 1.2.896.240 [id number] Univers 00:00:00 00:00:00 Sendil [facility] 350.1.13.10 [place] [phone] [address] 2020-04-18 2020-04-18 Telephone [facility] 1.2.492.552 [id number] Univers 00:00:00 00:00:00 Gilmer K.Bossman Hurtado 350.1.13.10 ity of [place] [phone] [place]s dical nal 059 [facility] 2020-04-14 2020-04-14 Telephone [facility] 1.2.840.114 [id number] Univers 00:00:00 00:00:00 Page Hurtado 350.1.13.10 i [place] [phone] [place] dical nal 044 [facility] 2020-04-13 2020-04-13 Orders Doctor LANRE 1.2.840.114 [id number] Univers 00:00:00 00:00:00 Only Unassigned, KAM 350.1.13.10 ity of [place] [facility] 4.2.7.2.686 Ziyad as [phone] [address] 2020-04-11 2020-04-11 Patient [facility] 1.2.840.114 [id number] Univers 00:00:00 00:00:00 [facility] 350.1.13.10 i ty of [place] 4.2.7.2.686 Ziyad as Professio [phone] [place]s dical nal [address] One 2020-04-10 2020-04-10 Office [facility] 1.2.840.114 [id number] Univers 12:37:07 14:46:16 Visit Page Genesis 350.1.13.10 i [place] [phone] Ks dical nal 044 [facility] 2020-04-10 2020-04-10 Out[facility] [id number] Univers 13:00:00 13:00:00 PAGE ity of [facility] 2020-04-09 2020-04-09 Telephone [facility] 1.2.773.138 [id number] Univers 00:00:00 00:00:00 [facility] 350.1.13.10 it[place] [phone] [facility] [address] 2020-04-03 2020-04-03 [facility] 1.2.840.114 [id number] Univers 14:30:09 14:45:09 Visit Chester Winston 350.1.13.10 it y of [facility] 4.2.7.2.686 Ziyad as BANK [phone] [facility] BLDG. [address] 2020-04-03 2020-04-03 Outpatient R PELON WALTER [facility] [id number] Univers 14:45:00 14:45:00 ity of [facility] 2020-04-03 2020-04-03 Orders Doctor DE DIOS 1.2.840.114 [id number] Univers 00:00:00 00:00:00 Only Unassigned, KAM 350.1.13.10 ity of [place] [facility] 4.2.7.2.686 Ziyad as [phone] [facility] [address] 2020-03-31 2020-03-31 Vimal Romero [facility] 1.2.840.114 [id number] Univers 00:00:00 00:00:00 Jennifer Genesis 350.1.13.10 [place] [phone] Me dical nal 231 [facility] 2020-03-31 2020-03-31 Telephone [facility] 1.2.840.114 [id number] Univers 00:00:00 00:00:00 Page Hurtado 350.1.13.10 i ty [place] [phone] Ks dical nal 044 [facility] 2020-03-28 2020-03-28 [facility] 1.2.840.114 [id number] Univers 00:00:00 00:00:00 Page Hurtado 350.1.13.10 i [place] [phone] Ks dical nal 044 [facility] 2020-03-27 2020-03-27 Office Hakan [facility] 1.2.840.114 [id number] [facility] 12:42:08 13:48:55 Visit Gilmer Hurtado 350.1.13.10 it[place] of [place] [phone] Ks dical nal 059 [facility] 2020-03-27 2020-03-27 Outpatient R HAKAN [facility] [id number] Univers 13:00:00 13:00:00 SENDIL ity of [facility] 2019-12-10 2019-12-10 Telephone [facility] 1.2.840.114 [id number] Univers 00:00:00 00:00:00 Page Hurtado 350.1.13.10 i [place] [phone] Ks dical nal 044 [facility] 2019-11-05 2019-11-05 Refill [facility] 1.2.840.114 [id number] Univers 00:00:00 00:00:00 Page Bean 350.1.13.10 it y of [place] 4.2.7.2.686 Ziyad as Professio [phone] [place]s dical nal [address] [facility] One 2019-10-26 2019-10-26 Refill [facility]RE[facility] 1.2.840.114 [id number] Univers 00:00:00 00:00:00 Page Hurtado 350.1.13.10 i [place] [phone] Ks dical nal 044 [facility] 2019-10-12 2019-10-12 Telephone [facility] 1.2.307.901 [id number] Univers 00:00:00 00:00:00 Gilmer Hurtado 350.1.13.10 ity of [place] [phone] Ks dical nal 059 [facility] 2019-09-24 2019-09-24 Telephone [facility] 1.2.044.509 [id number] Univers 00:00:00 00:00:00 Gilmer Hurtado 350.1.13.10 it[place] of [place] [phone] Ks dical nal 059 [facility] 2019-09-19 2019-09-19 Outpatient R WALTER BIRD [facility] [id number] Univers 14:45:00 14:45:00 ity [facility] 2019-09-19 2019-09-19 Vimal Romero [facility] 1.2.840.114 [id number] Univers 00:00:00 00:00:00 Jennifer Hurtado 350.1.13.10 i ty [place] [phone] Ks dical nal 231 [facility] 2019-09-18 2019-09-18 Office [facility] 1.2.840.114 [id number] Univers 15:18:50 16:20:14 Visit [facility] 350.1.13.10 it y of Surgical 4.2.7.2.686 Ziyad as Specialti [phone] Ks dical es 198 [facility] 2019-09-18 2019-09-18 Outpatient R EZIO [facility] [id number] Univers 16:00:00 16:00:00 TORSTEN zimmer [facility] 2019-09-18 2019-09-18 Orders Doctor LANRE 1.2.840.114 [id number] Univers 00:00:00 00:00:00 Only Unassigned, KAM 350.1.13.10 ity of [place] [facility] 4.2.7.2.686 Ziyad as [phone] [facility] [address] 2019-09-17 2019-09-17 Telephone [facility] 1.2.793.135 [id number] 00:00:00 00:00:00 [facility] 350.1.13.10 [place] 4.2.7.2.686 Professio [phone] nal [address] [place] [address] 2019-09-17 2019-09-17 Telephone [facility] 1.2.761.109 [id number] Univers 00:00:00 00:00:00 Kaylinconstantinolaureen [place] 350.1.13.10 ity of [place] [phone] Ks dical nal 059 [facility] 2019-09-13 2019-09-13 Telephone [facility] 1.2.840.114 [id number] Univers 00:00:00 00:00:00 [facility] 350.1.13.10 it y of Surgical 4.2.7.2.686 Ziyad as Specialti [phone] [place]s dical es 198 [facility] 2019-09-12 2019-09-12 Office Mery, [facility] 1.2.840.114 [id number] Univers 10:35:36 11:07:17 Visit Pina Winston 350.1.13.10 it y of N[place] 4.2.7.2.686 Ziyad as BANK [phone] [facility] BLDG. [address] 2019-09-12 2019-09-12 Outpatient R MERY, [facility] [id number] Univers 10:00:00 10:00:00 PINA ity of [facility] 2019-09-03 2019-09-04 Office Walter Bird [facility] 1.2.840.114 [id number] Univers 13:59:27 13:09:28 Visit Chester Winston 350.1.13.10 it y of [place] 4.2.7.2.686 Ziyad as BANK [phone] [facility]. [address] 2019-09-03 2019-09-03 Outpatient R [facility] [id number] Univers 14:15:00 14:15:00 ity of [facility] 2019-09-03 2019-09-03 Outpatient R [facility] [id number] Univers 14:15:00 14:15:00 ity of [facility] 2019-09-03 2019-09-03 Telephone Pelon, [facility] 1.2.840.11 [id number] Univers 00:00:00 00:00:00 Chester Y 350.1.13.10 it y of [place] 4.2.7.2.686 Ziyad as BANK [phone] [facility]. [address] [place] [address] 2019-08-31 2019-08-31 Telephone Pelon, [facility] 1.2.840.11 [id number] Univers 00:00:00 00:00:00 Chester Y 350.1.13.10 it y of [place] 4.2.7.2.686 Ziyad as BANK [phone] [facility]. [address] [place] [address] 2019-08-23 2019-08-23 Orders Doctor LANRE 1.2.840.114 [id number] Univers 00:00:00 00:00:00 Only Unassigned, KAM 350.1.13.10 ity of [place] [facility] 4.2.7.2.686 Ziyad as [phone] [address] 2019-08-22 2019-08-22 Office Pelon [facility] 1.2.840.114 [id number] Univers 14:35:18 16:08:31 Visit Chester Y 350.1.13.10 it y of [place] 4.2.7.2.686 Ziyad as BANK [phone] [facility]. [address] [place] [address] 2019-08-22 2019-08-22 Telephone Hakan [facility] 1.2.478.801 [id number] Univers 00:00:00 00:00:00 Gilmer Hurtado 350.1.13.10 ity of [place] [phone] [place] dical nal 059 [facility] 2019-08-13 2019-08-13 Office Walter BirdIT 1.2.840.114 [id number] Univers 14:51:19 16:47:28 Visit Chester Winston 350.1.13.10 it y of [facility] 4.2.7.2.686 Ziyad as BANK [phone] [facility] BLDG. [address] 2019-08-13 2019-08-13 Orders Doctor LANRE 1.2.840.114 [id number] Univers 00:00:00 00:00:00 Only Unassigned, KAM 350.1.13.10 ity of [place] [facility] 4.2.7.2.686 Ziyad as [phone] [facility] [address] 2019-08-13 2019-08-13 Telephone [facility] 1.2.840.114 [id number] Univers 00:00:00 00:00:00 Page Hurtado 350.1.13.10 i ty [place] [phone] [place]s dical nal 044 [facility] 2019-08-08 2019-08-08 Telephone [facility] 1.2.840.114 [id number] Univers 00:00:00 00:00:00 Page Hurtado 350.1.13.10 i ty of [place].2.[place] [phone] Ks dicnj nal 044 [facility] 2019-08-06 2019-08-06 Telephone [facility] 1.2.840.114 [id number] Univers 00:00:00 00:00:00 Page Hurtado 350.1.13.10 i ty of [place] 4[place].2.[place] [phone] [place]s dical nal 044 [facility] 2019-08-03 2019-08-03 Telephone [facility] 1.2.840.114 [id number] Univers 00:00:00 00:00:00 Page Hurtado 350.1.13.10 i ty of [place] 4[place].2.[place] [phone] [place]s dical nal 044 [facility] 2019-07-31 2019-07-31 Telephone [facility] 1.2.070.050 [id number] Univers 00:00:00 00:00:00 [facility] 350.1.13.10 [place].2.686 [place] [phone] [facility] [address] [facility] Care 2019-07-31 2019-07-31 [facility] 1.2.840.114 [id number] Univers 00:00:00 00:00:00 Page Hurtado 350.1.13.10 i ty of [place] 4[place].7.2.[place] [phone] Ks dicbk nal 044 [facility] 2019-07-31 2019-07-31 Telephone [facility] 1.2.840.114 [id number] Univers 00:00:00 00:00:00 Page Hurtado 350.1.13.10 i ty of [place] 4[place].2.[place] [phone] Ks dicbk salazar 044 [facility] 2019-07-30 2019-07-30 Telephone [facility] 1.2.840.114 [id number] Univers 00:00:00 00:00:00 Page Hurtado 350.1.13.10 i ty of [place].2.[place] [phone] Ks dicbk salazar 044 [facility] 2019-07-25 2019-07-25 Office Crescencio [facility] 1.2.179.547 [id number] Univers 13:25:23 13:46:14 Visit [facility] 350.1.13.10 it y of Surgical 4.2.7.2.686 Ziyad as Specialti [phone] Ks chris es 198 [facility] 2019-07-20 2019-07-20 Assembly Machine Offbearer 2, Adc Lab [facility] 1.2.840.114 [id number] Univers 08:44:52 08:59:52 Visit Page Arevalo 350.1.13.10 ity of [place].2.[place] [phone] Ks dical nal 353 [facility] 2019-07-19 2019-07-19 Telephone Crescencio [facility] 1.2.840.114 [id number] Univers 00:00:00 00:00:00 Kavon Hurtado 350.1.13.10 i ty of [place] 4[place].2.[place] [phone] Ks dical nal 198 [facility] 2019-07-17 2019-07-17 Assembly Machine Offbearer 2, Adc Lab [facility] 1.2.840.114 [id number] Univers 16:09:05 16:24:05 Visit Page Arevalo 350.1.13.10 ity of [place].2.[place] [phone] Ks dical nal 353 [facility] 2019-07-17 2019-07-17 Office Mickey [facility] 1.2.840.114 [id number] [facility] 13:26:35 15:42:18 Visit Page Hurtado 350.1.13.10 i ty of [place].2.[place] [phone] Ks dicnj nal 044 [facility] 2019-03-12 2019-03-12 Office Walter Bird [facility] 1.2.840.114 [id number] [facility] 13:08:43 13:58:40 Visit Chester Winston 350.1.13.10 it y of [facility] 4.2.7.2.686 Ziyad as BANK [phone] [facility] BLDG. [address] 2019-03-01 2019-03-01 Office iVmal Mccall [facility] 1.2.840.114 [id number] [facility] 12:38:24 13:28:40 Visit Jennifer Hurtado 350.1.13.10 i ty [place].2.[place] [phone] [facility]44 [facility] 2019-03-01 2019-03-01 Orders Doctor DE DIOS 1.2.840.114 [id number] Univers 00:00:00 00:00:00 Only Unassigned, KAM 350.1.13.10 ity of [place] [facility] 4.2.7.2.686 Ziyad as [phone] [facility] [address] 2019-02-01 2019-02-01 Office [facility] 1.2.840.114 [id number] Univers 12:25:24 14:51:24 Visit Garland britt 350.1.13.10 ity of [facility] 4.2.7.2.686 Ziyad as BANK [phone] [facility] BLDG. [address] 2019-01-26 2019-01-26 Refmayra MccallVimal [facility] 1.2.840.114 [id number] Univers 00:00:00 00:00:00 Jennifer Hurtado 350.1.13.10 i ty [place] [phone] [place]s dical nal 044 [facility] 2019-01-25 2019-01-25 Jordan Lancaster [facility] 1.2.840.114 [id number] Univers 00:00:00 00:00:00 [facility] 350.1.13.10 it y of [place] 4.2.7.2.686 Ziyad as Professio [phone] [place]s dical nal [address] One Results Test Description Test [...] (test code 0 % 0-1 = 2801) [id number] 06:09:00 Test Item Value Reference Range Interpretation Comments MAGNESIUM (BEAKER) (test code = 2.3 mg/dL 1.6-2.6 627) Teleprinter Installer ID - PIAYA LBASIC METABOLIC [id number] 06:09:00 Test Item Value Reference Range Interpretation [...] S NOT APPLICABLE FOR DIALYSIS PATIEN TS. Teleprinter Installer ID - SANIYA LSpecimen slightly ictericBASIC METABOLIC [id number] 11:34:00 Test Item Value Reference Range Interpretation [...] S NOT APPLICABLE FOR DIALYSIS PATIEN TS. Teleprinter Installer ID - QUINCY CSpecimen slightly ictericBASIC METABOLIC [id number] 07:08:00 Test Item Value Reference Range Interpretation [...] S NOT APPLICABLE FOR DIALYSIS PATIEN TS. Teleprinter Installer ID - QUINCY CSpecimen slightly ictericCBC W/PLT COUNT & AUTO [id number] 06:56:00 Test Item Value Reference Range Interpretation [...] PERCENT (BEAKER) (test code = 2801) OSMOLALITY, [id number] 12:08:00 Test Item Value Reference Range Interpretation Comments OSMOLALITY URINE (BEAKER) (test 597 mOsm/kg 50-1,200 mOsm/kg code = 614) SODIUM, RANDOM [id number] 11:50:00 Test Item Value Reference Range Interpretation Comments SODIUM URINE (BEAKER) (test code = 73 meq/L 243) Reference Range: No NormalsOperator ID - NTPOSMOLALITY, [id number] 11:07:00 Test Item Value Reference Range Interpretation Comments OSMOLALITY, SERUM (BEAKER) (test 258 mOsm/kg 275-295 L code = 615) BASIC METABOLIC [id number] 06:33:00 Test Item Value Reference Range Interpretation [...] S NOT APPLICABLE FOR DIALYSIS PATIEN TS. Teleprinter Installer ID - NTPSpecimen slightly ictericCBC W/PLT COUNT & AUTO [id number] 06:07:00 Test Item Value Reference Range Interpretation [...] (BEAKER) (test code = 2801) CT, CAROTID, [id number] 14:04:00Unlisted Reason for Exam - Click Yes [...] volume rendered technique separately on a workstation. Thisexam was performed according to the departmental dose [...] ICA and 50% focal stenosis of the leftICA per NASCET criteria. Mild stenosis of the left vertebral origin. Signed: Becca Leach MDReportVerified Date/Time: 02/27/2020 14:04:11 NV, ANGIOGRAM, [id number] 11:19:00 Reason for exam:->carotid stenosisFINAL REPORT Date [...] placed and maintained on heparinized flush. A AthletePath 2 glide diagnostic catheter was introduced and [...] evidence of aneurysms at their origins. The chemical maker fill symmetrically, there is no evidence of [...] no evidence of arteriovenous shunting. The capillary phaseis normal without areas of malperfusion, the venous phase demonstrates a normal venous draining pattern Summary of Findings 1. Moderate bilateral carotid stenosis. 42% stenosis by NASCET criteria on right, 35% stenosis by NASCET criteria on the left.2. No other vascular malformations noted3. No radiographic or clinical evidence of complication Signed: Imtiaz Pierce MDReport Verified Date/Time: 02/27/2020 11:19:35 Reading [facility] POCT-GLUCOSE [id number] 10:30:00 Test Item Value Reference Range Interpretation Comments POC-GLUCOSE METER 106 mg/dL 70-110 : TESTED A T [facility] 6720 ([facility]) (test code = SUSH[place] CLANC[place], 1538) 14165: Teleprinter Installer/Techni javi ID = [id number] for NG MICHELLE LEBRON BASIC METABOLIC [id number] 09:48:00 Test Item Value Reference Range Interpretation Comments SODIUM (MATT) 125 meq/L 136-145 L (test code = [...] S NOT APPLICABLE FOR DIALYSIS PATIEN TS. Teleprinter Installer ID - JUL CCBC W/PLT COUNT & AUTO [id number] 09:07:00 Test Item Value Reference Range Interpretation [...] PERCENT (BEAKER) (test code = 2801) TROPONIN [id number] 14:06:00 Test Item Value Reference Range Interpretation [...] failure, acidosis, acute neurological disease, and persistent tachyarrhythmia.Teleprinter Installer ID - KAVIN MMR, BRAIN, WITHOUT [id number] 14:04:00Unlisted Reason for Exam - Click Yes [...] mass effect. No hydrocephalus. The distal right JUNIOR PARALEGAL flow void is not visualized. Sinuses: No evidence of sinusitis. Mastoids are clear. Orbits: Globes are intact. Calvarium \\T\\ scalp: Unremarkable. 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 Signed: Becca Leach MDReport Verified Date/Time: 02/25/2020 14:04:12 SARS-COV2/RT-PCR ([facility])2020-02-25 13:28:00 Test Item Value Reference Range Interpretation Comments SARS-COV2/RT-PCR (test Negative Not Detected, Negative, code = 6747185) See external report for linked test SARS-COV-2 PERFORMING LAB [facility] (test code = 7316926) Negative result for this test determines that [...] of the Act.Fact Sheet for Healthcare Prov iders:https://www.Simpli.fi/sites/default/files/product/documents/Fact_Sheet_HC _Gxiyhflzb_Ajko_GYGR-EcX-8.pdfFact Sheet for Healthcare Patients:https://www.Simpli.fi/sites/default/files/product/docume nts/Qvel_Lmput_Dozjeywj_Pvwc_XUQX-AfL-2.pdfPerforming Laboratory:[address] [place], [place] [address]WBD, CHEST, 1 VIEW, NON [id number] 11:54:00Reason for exam:->PRe opShould this be performed at the bedside?->YesFINAL REPORT INDICATION: PRe op COMPARISON: None TECHNIQUE: Single frontal viewof the chest. FINDINGS: Lungs and pleura: Bibasilar atelectasis No effusion.Heart and mediastinum: Normal heart size. Unremarkable mediastinal contours.Osseous structures: No acute abnormality.Other: None. Signed: Maribel Edge Verified Date/Time: 02/25/2020 11:54:47 Reading Location: [facility] Radiology Reading Room GLOBIN [id number] 10:13:00 Test Item Value Reference Range Interpretation Comments HEMOGLOBIN A1C (BEAKER) (test code = 6.2 % 4.3-6.1 H 368) COMPREHENSIVE METABOLIC [id number] 09:04:00 Test Item Value Reference Range Interpretation [...] S NOT APPLICABLE FOR DIALYSIS PATIEN TS. Teleprinter Installer ID - KAVIN MLIPID [id number] 06:29:00 Test Item Value Reference Range Interpretation [...] Borderline 130-159 High 160-189 Very High >=190 Teleprinter Installer ID - KAVIN MCBC W/PLT COUNT & AUTO [id number] 04:59:00 Test Item Value Reference Range Interpretation [...] (test code = 2801) TSH/FREE T4 IF [id number] 16:19:00 Test Item Value Reference Range Interpretation Comments THYROID STIMULATING HORMONE 3.677 uIU/mL 0.350-4.940 (BEAKER) (test code = 772) Teleprinter Installer ID - EDASIVITAMIN B12 AND [id number] 16:19:00 Test Item Value Reference Range Interpretation Comments VITAMIN B12 (BEAKER) (test code = 561 pg/mL 213-816 774) FOLATE (BEAKER) (test code = 362) 10.10 ng/mL >=7.00 Teleprinter Installer ID - EDASITROPONIN [id number] 15:37:00 Test Item Value Reference Range Interpretation [...] failure, acidosis, acute neurological disease, and persistent tachyarrhythmia.Teleprinter Installer ID - EDASILIPID [id number] 15:31:00 Test Item Value Reference Range Interpretation [...] Borderline 130-159 High 160-189 Very High >=190 Teleprinter Installer ID - EDASICOMPREHENSIVE METABOLIC [id number] 15:31:00 Test Item Value Reference Range Interpretation [...] S NOT APPLICABLE FOR DIALYSIS PATIEN TS. Teleprinter Installer ID - EDASIPT/[id number] 15:28:00 Test Item Value Reference Range Interpretation [...] mechanical heart valves.CBC W/PLT COUNT & AUTO [id number] 15:11:00 Test Item Value Reference Range Interpretation [...]
[2023-02-12] MEDS ORDERED: FLUORESCEIN SODIUM 1 MG/WRAP ONE (10:47)
[2023-02-12] MEDS ORDERED: TETRACAINE HCL 0.5% 4ML OPTH ONE (10:47)
--- NOTE | 2023-02-12 11:04 | EDPHYS ---
Physician Documentation [facility] Name: Xiomy Mendez Age: 77 yrs Sex: Female : 1945 Arrival Date: 02/12/2023 Time: 10:11 Bed 17 Private MD: Reji Gasca ED Physician Zenon Adler HPI: 02/12 15:16 This 77 yrs old Female presents to ER via Ambulatory with complaints of Eye Problem. kdr 15:17 Patient complains of discomfort to the left eye that started yesterday. She does not kdr recall any specific injury. She had been out shopping most of the day and possibly some lawn work but otherwise no specific incident resulting in the pain. Patient's not had pain like this before. Patient has no other concerns or complaints. Patient is nontoxic-appearing in the ED. Her pain is mild. Onset: The symptoms/episode began/occurred yesterday. Severity of symptoms: At their worst the symptoms were mild in the emergency department the symptoms are unchanged. The patient has not experienced similar symptoms in the past. The patient has not recently seen a physician. Historical: - Allergies: 10:21 Amoxicillin; ss 10:21 Aspirin; ss 10:21 PENICILLINS; ss 10:21 steroids; ss 10:21 Sulfa (Sulfonamide Antibiotics); ss - PMHx: 10:21 CAD; Cerebrovascular accident; Hypertension; Hypertensive disorder; Myocardial ss infarction; - Immunization history:: Client reports receiving the 2nd dose of the Covid vaccine. - Social history:: Smoking status: Patient denies any tobacco usage or history of. ROS: 15:17 Constitutional: Negative for fever, chills, and weight loss, Neck: Negative for injury, kdr pain, and swelling, Cardiovascular: Negative for chest pain, palpitations, and edema, Respiratory: Negative for shortness of breath, cough, wheezing, and pleuritic chest pain, Abdomen/GI: Negative for abdominal pain, nausea, vomiting, diarrhea, and constipation, Back: Negative for injury and pain. 15:17 Eyes: Positive for foreign body sensation, pain, redness, of the iris of left eye. Exam: 15:17 Constitutional: This is a well developed, well nourished patient who is awake, alert, kdr and in no acute distress. Head/Face: Normocephalic, atraumatic. Neck: Trachea midline, no thyromegaly or masses palpated, and no cervical lymphadenopathy. Supple, full range of motion without nuchal rigidity, or vertebral point tenderness. No Meningismus. Chest/axilla: Normal chest wall appearance and motion. Nontender with no deformity. No lesions are appreciated. 15:17 Eyes: Periorbital structures: appear normal, Pupils: no acute changes, equal, round, and reactive to light and accomodation, Extraocular movements: intact throughout, Conjunctiva: chemosis, injected, in the left eye, Patient states she is legally blind in her right eye. Vital Signs: 10:18 BP 191 / 98; Pulse 81; Resp 16; Temp 98.1(TE); Pulse Ox 98% on R/A; Weight 58.51 kg; ss Height 5 ft. 0 in. ; Pain 7/10; 10:22 BP 188 / 71; ss 11:00 BP 160 / 78; Pulse 67; Resp 18; Pulse Ox 97% on R/A; eh3 10:18 Body Mass Index 25.19 (58.51 kg, 152.4 cm) ss 10:18 Pain Scale: Adult ss MDM: 11:04 Patient medically screened. kdr 15:32 Data reviewed: vital signs, nurses notes. kdr Administered Medications: No medications were administered Disposition Summary: 02/12/23 11:04 Discharge Ordered Location: Home kdr Problem: new kdr Symptoms: have improved kdr Condition: Stable kdr Diagnosis - Corneal Abrasion - Left kdr Followup: kdr - With: Taz Acuna MD - When: 2 - 3 days - Reason: If symptoms return, Further diagnostic work-up, Recheck today's complaints, Continuance of care, Re-evaluation by your physician Discharge Instructions: - Discharge Summary Sheet kdr - Corneal Abrasion, [id number] kdr Forms: - Medication Reconciliation Form kdr - Thank You Letter kdr - Antibiotic Education kdr - Patient Portal Instructions kdr - Leadership Thank You Letter kdr Prescriptions: - Erythromycin 5 mg/gram (0.5 %) Ophthalmic Ointment - apply 1 ribbon by OPHTHALMIC route every 8 hours for 3 days Dispense one tube; kdr 1 packet; Refills: 0, Product Selection Permitted Signatures: Zenon Adler MD MD kdr Liudmila Mireles, RN RN ss
--- NOTE | 2023-02-12 11:04 | ER ---
Nurse's Notes [facility] Name: Xiomy Mendez Age: 77 yrs Sex: Female : 1945 Arrival Date: 02/12/2023 Time: 10:11 Bed 17 Private MD: Reji Gasca Diagnosis: Corneal Abrasion - Left Presentation: 02/12 10:18 Chief complaint: Patient states: L eye discomfort since yesterday. Pt reports that it ss feels as if something may be in there. Coronavirus screen: Client denies travel out of the [place] in the last 14 days. Ebola Screen: Patient denies exposure to infectious person. Patient denies travel to an Ebola-affected area in the 21 days before illness onset. Initial Sepsis Screen: Does the patient meet any 2 criteria? No. Patient's initial sepsis screen is negative. Does the patient have a suspected source of infection? No. Patient's initial sepsis screen is negative. Risk Assessment: Do you want to hurt yourself or someone else? Patient reports no desire to harm self or others. Onset of symptoms was February 11, 2023. 10:18 Method Of Arrival: Ambulatory ss 10:18 Acuity: ALFONSO 2 ss Historical: - Allergies: 10:21 Amoxicillin; ss 10:21 Aspirin; ss 10:21 PENICILLINS; ss 10:21 steroids; ss 10:21 Sulfa (Sulfonamide Antibiotics); ss - PMHx: 10:21 CAD; Cerebrovascular accident; Hypertension; Hypertensive disorder; Myocardial ss infarction; - Immunization history:: Client reports receiving the 2nd dose of the Covid vaccine. - Social history:: Smoking status: Patient denies any tobacco usage or history of. Screenin:30 [facility] ED Fall Risk Assessment (Adult) Score/Fall Risk Level 0 - 2 = Low Risk. Abuse eh3 screen: Denies threats or abuse. Denies injuries from another. Nutritional screening: No deficits noted. Tuberculosis screening: No symptoms or risk factors identified. Assessment: 10:30 General: Appears in no apparent distress. uncomfortable, Behavior is calm, cooperative, eh3 appropriate for age. Pain: Complains of pain in left eye. Neuro: Level of Consciousness is awake, alert, obeys commands, Oriented to person, place, time, situation. Neuro: Pupils are PERRLA. Cardiovascular: Capillary refill < 3 seconds Patient's skin is warm and dry. Respiratory: Airway is patent Respiratory effort is even, unlabored, Respiratory pattern is regular, symmetrical. GI: Abdomen is round non-distended. EENT: Sclera/Cornea are reddened in outer aspect of conjuctiva of left eye, iris of left eye and inner aspect of conjunctiva of left eye Lid(s) swelling. Derm: Skin is pink, warm \T\ dry. Musculoskeletal: Circulation, motion, and sensation intact. 11:00 Reassessment: Patient appears in no apparent distress at this time. Patient and/or eh3 family updated on plan of care and expected duration. Pain level reassessed. Patient is alert, oriented x 3, equal unlabored respirations, skin warm/dry/pink. Vital Signs: 10:18 BP 191 / 98; Pulse 81; Resp 16; Temp 98.1(TE); Pulse Ox 98% on R/A; Weight 58.51 kg; ss Height 5 ft. 0 in. ; Pain 7/10; 10:22 BP 188 / 71; ss 11:00 BP 160 / 78; Pulse 67; Resp 18; Pulse Ox 97% on R/A; eh3 10:18 Body Mass Index 25.19 (58.51 kg, 152.4 cm) ss 10:18 Pain Scale: Adult ss ED Course: 10:14 Patient arrived in ED. rg4 10:14 Reji Gasca MD is Private Physician. rg4 10:14 Zenon Adler MD is Attending Physician. kdr 10:21 Triage completed. ss 10:21 Arm band placed on right wrist. ss 10:30 Patient has correct armband on for positive identification. Bed in low position. Call [facility] light in reach. Side rails up X2. Adult w/ patient. Provided Education on: Use of call [facility]inson. Pulse ox on. NIBP on. Door closed. Noise minimized. Lights dimmed. 10:34 Bisi Blanco, RONNIE is Primary Nurse. 3 11:00 Assist provider with eye exam of left eye. using fluorescein stain, Performed by Zenon Adler MD Patient tolerated well. 11:02 Taz Acuna MD is Referral Physician. kdr 11:30 Patient did not have IV access during this emergency room visit. hb Administered Medications: No medications were administered Medication: 11:31 VIS not applicable for this client. eh3 Outcome: 11:04 Discharge ordered by . kdr 11:40 Discharged to home via wheelchair, with significant other. hb 11:40 Condition: stable 11:40 Discharge instructions given to patient, significant other, Instructed on discharge hb instructions, follow up and referral plans. medication usage, Demonstrated understanding of instructions, follow-up care, medications, Prescriptions given X 1. 11:41 Patient left the ED. Signatures: Zenon Adler MD MD [facility] Liudmila Mireles, RONNIE RN Diana Vazquez, RN RN Marlin Kinney 4 Bisi Blanco RN RN 3
[2023-02-12 11:45] VITALS: TEMP 98.1
[2023-02-12 11:47] VITALS: BP 160/78; O2SAT 97
== END 2023-02-12 11:41 | disposition home or self-care (01) ==
LOC: ER 10:11
DX: S05.02XA Injury of conjunctiva and corneal abrasion without foreign body, left eye, initial encounter (principal)
CPT/HCPCS: 99284